=== PATIENT | female | born 1995 | race Caucasian/White ===

== ENCOUNTER 2024-05-10 10:43 | Inpatient (IN) | payer MEDICAID, SELFPAY ==
[2024-05-10] VITALS (12 sets, daily range): BP systolic 98–126; BP diastolic 67–85; PULSE 90–108; RESP 16–99; TEMP 36.9–37.4; O2SAT 97–100; BMI 25.2; BMI 27.3
--- NOTE | 2024-05-10 10:57 | XR_ITS ---
Examination: Complete OB ultrasound, less than 14 weeks, transabdominal Date and time of exam: May 10, 2024 1213 hours INDICATIONS: Vaginal bleeding beginning 2 days ago, diabetic Technique: Obstetrical ultrasound images less than 14 weeks performed via transabdominal imaging Findings: Uterus 10.4 cm, intrauterine gestational sac 0.9 cm corresponds to 5 weeks 5 day gestational age No pole No cardiac activity Uterine fundal mass 26 mm Right ovary 2.7 cm arterial flow Left ovary 3.7 cm arterial flow IMPRESSION: Empty intrauterine gestational sac corresponding to 5 weeks 5 day gestational age, no pole, no cardiac activity Recommend transvaginal pelvic sonography follow-up
--- NOTE | 2024-05-10 10:58 | PD.EDRME ---
Rapid Medical Screening Exam RME Arrival date/time: 05/10/24 10:43 28-year-old female with a history of type 1 diabetes presents to the emergency room with a chief complaint of nausea, abdominal pain, weakness and feeling like she is in DKA. Patient has a history of DKA and blood sugar read critically high this morning. Patient states she has not taken her insulin in the last 2 days because she ran out and her primary care provider's appointment is not till next week. Patient is also and states she is having vaginal bleeding. I have greeted and performed a focused initial assessment of this patient. A comprehensive ED assessment and evaluation of the patient, analysis of all test results, and completion of the medical decision making process will be conducted by additional ED providers. Chief Complaint: Urogenital-Female Time Seen by Provider: 05/10/24 10:47 Vital signs reviewed by provider: Yes
[2024-05-10 11:57] LABS: Basophils # (Auto) 0.1 Thou/mm3 (0.0-0.2); Basophils % (Auto) 1 % (0-2.5); Eosinophils % (Auto) 0 % (0-10); Hemoglobin 12.6 g/dL (12.0-16.0); Immature Granulocytes % (Auto) 0 % (0-0); Immature Granulocytes Auto 0.03 Thou/mm3 (0.00-0.00); Lymphocytes # (Auto) 1.2 Thou/mm3 (1.0-4.8); Lymphocytes % (Auto) 10 % (10-50); Mean Corpuscular HGB Conc 33.2 g/dl (31.0-37.0); Mean Corpuscular Hemoglobin 28.1 pg (25.0-35.0); Mean Corpuscular Volume 85 fL (80-100); Monocytes # (Auto) 0.5 Thou/mm3 (0.0-0.8); Monocytes % (Auto) 4 % (0-12); Neutrophils # (Auto) 9.7 Thou/mm3 (1.8-7.7); Neutrophils % (Auto) 84 % (37-80); Nucleated Red Blood Cell % 0 /100 WBC (0); Platelet Count 535 Thou/mm3 (140-440); RDW Standard Deviation 40.1 fL (36.4-46.3); Red Blood Count 4.49 Miln/mm3 (4.00-5.20); White Blood Count 11.6 Thou/mm3 (3.6-11.0)
--- NOTE | 2024-05-10 11:59 | PD.EDFMALE ---
ED Female Urogenital RME/HPI General Chief complaint: Urogenital-Female Stated complaint: , VAG. BLEEDING, I THINK IM IN DKA Time Seen by Provider: 05/10/24 10:47 Arrival date/time: 05/10/24 10:43 28 year old female with pastmedical history of DM I , DKA, C/S ,dehydration, seizure present to emergency room with c/o of , vag bleeding and abdominal pain, nausea,vomiting, weakness and may think she has DKA. Pt report taking blood glucose today and it was critically high. Pt report not taking insulin in 2 days due to not running out. unable to make an appointment with her PCP until 1 week. SEVERITY: Symptoms are described as being severe with limitations on activities of daily living CONTEXT: The patient is unable to identify any inciting events. DURATION/TIMING: The symptoms started approximately 2 days ASSOCIATED SYMPTOMS: The patient is unable to identify any other associated symptoms. MODIFYING FACTORS: The patient is unable to identify any alleviating or aggravating symptoms. PERTINENT ROS: no fevers, no chest pain, sob, no cough, no pleuritic pain, no ripping or tearing sensations, denies any lower extremity edema and no unilateral swelling, no chest pain/shortness of breath no rash no loc/syncope episode no abd/back pain no dsyuria,urgency,frequency REVIEW OF SYSTEMS: See History of Present Illness - with the exception of those mentioned in the history of present illness, all other systems reviewed and reported as negative GENERAL: In general the patient is awake, interactive, in an emergency department gurney. mild discomfort HEAD/EYES/EARS/NOSE/THROAT: normo-cephalic, atraumatic, mucus membranes are moist, anicteric, palpebral conjunctiva is pink, trachea is midline. CARDIOVASCULAR: regular rate and regular rhythm, no murmurs, heart sounds are not distant, strong pulses in all four extremities that are equal and symmetric bilateral upper and lower extremities, normal capillary refill. CHEST/PULMONARY: normal chest rise and fall, good air movement, clear to auscultation bilaterally, normal inspiratory to expiratory ratios without evidence of respiratory distress. NECK: No midline/Paraspinal tenderness, no step off ROM/Strenght intact No Kernig and bruzinski sign. No trauma ABDOMEN: soft, not tender, no masses appreciated BACK: normal range of motion without pain. NEUROLOGICAL: cranio-facial features are symmetric, moves all four extremities equally without obvious limitations or weakness. EXTREMITY: no tenderness to palpation over the long bones or large joints of the bilateral upper and lower extremities, no joint swelling, no joint erythema, no signs of trauma, no unilateral leg swelling and no peripheral edema. SKIN: warm, dry, well-perfused, no jaundice, no rash, no telangiectasias or petechia. PSYCH: calm, cooperative, no evidence of psychosis or agitation RME / HPI RME / HPI Narrative: 05/10/24 10:43 28-year-old female with a history of type 1 diabetes presents to the emergency room with a chief complaint of nausea, abdominal pain, weakness and feeling like she is in DKA. Patient has a history of DKA and blood sugar read critically high this morning. Patient states she has not taken her insulin in the last 2 days because she ran out and her primary care provider's appointment is not till next week. Patient is also and states she is having vaginal bleeding. I have greeted and performed a focused initial assessment of this patient. A comprehensive ED assessment and evaluation of the patient, analysis of all test results, and completion of the medical decision making process will be conducted by additional ED providers. Related Data Previous Rx's ?Medication ?Instructions ?Recorded aripiprazole 10 mg tablet 10 mg PO QDAY 9 days #9 tabs 12/08/23 blood sugar diagnostic (Accu-Chek #100 ea 12/08/23 SmartView Test Strips) blood-glucose meter (FreeStyle #1 ea 12/08/23 Cashiers Lite kit) insulin aspart U-100 100 unit/mL 8 unit (0.08 mL) subcut AC #15 mL 12/08/23 (3 mL) subcutaneous pen (Novolog FlexPen U-100 Insulin aspart) insulin glargine 100 unit/mL 20 unit (0.2 mL) subcut BID #10 mL 12/08/23 subcutaneous solution (Lantus U-100 Insulin) lancets 28 gauge (FreeStyle #100 ea 12/08/23 Lancets) lancets-blood glucose test #1 ea 12/08/23 strips-pen needles with gauze kit levothyroxine 88 mcg tablet 88 mcg PO QDAY 30 days #30 tabs 12/08/23 (Synthroid) pen needle, diabetic 29 gauge x #100 ea 12/08/23 1/2 (Comfort EZ Pen [place]) pen needle, diabetic 32 gauge x #100 ea 12/08/23 1/4 Allergies Allergy/AdvReac Type Severity Reaction Status Date / Time codeine Allergy Intermediate Abdominal Verified 05/10/24 10:47 Pain Course Course Course Narrative: DISPOSITION: Emergency Department nursing documentation was reviewed including triage complaint, associated symptoms, administration of medications, response to therapy and vital signs. Given the history, physical exam, and review of laboratory and imaging studies the patient is determined to be unsafe for discharge and is being moved into the hospital for further diagnostic tests, treatments, stabilization, and monitored response to therapy. I communicated the history, physical exam, pertinent laboratory and imaging studies to the inpatient physician. The inpatient physician has access to electronic copies of all emergency department laboratory testing and imaging studies as well as medications ordered and administered. Quality Measures none Orders Category Date Time Status Television Equipment Operator STAT Care 05/10/24 13:01 Active DKA Protocol QSHIFT Care 05/10/24 13:01 Active EKG (ED ONLY) *Do not use* NOW Care 05/10/24 12:02 Completed In and Out Catheter X1 Care 05/10/24 13:45 Active Insert IV NOW Care 05/10/24 10:57 Active Notify provider NEEDED Care 05/10/24 13:01 Active Consult to Gynecology Stat Cons 05/10/24 13:44 Ordered Consult to Security Program Manager Stat Cons 05/10/24 13:45 Ordered Referral Registered Dietitian Routine Cons 05/10/24 13:01 Active EKG (ED Only) Stat Exams 05/10/24 12:02 Ordered US OB <= 14 weeks fetus Stat Exams 05/10/24 10:57 Completed ABO/RH Type Stat Lab 05/10/24 11:21 Completed Beta HCG,Quantitative Stat Lab 05/10/24 11:21 Completed Beta Hydroxybutyrate Stat Lab 05/10/24 11:21 Completed CBC Stat Lab 05/10/24 11:21 Completed CMP [Comprehensive Metabolic Panel] Stat Lab 05/10/24 11:21 Completed Drug Screen,Urine Stat Lab 05/10/24 14:30 Ordered Glycohemoglobin w (eAG) Stat Lab 05/10/24 11:21 Completed Lactic Acid [Lactate (Lactic Acid)] Stat Lab 05/10/24 13:02 Completed Lipase Stat Lab 05/10/24 11:21 Completed Mag [Magnesium] Stat Lab 05/10/24 11:21 Completed Phosphorous Stat Lab 05/10/24 13:30 Completed Troponin I Stat Lab 05/10/24 11:21 Completed UA [Urinalysis] Stat Lab 05/10/24 10:56 Ordered Urine Culture Stat Lab 05/10/24 10:56 Ordered VBG [Venous Blood Gas] Stat Lab 05/10/24 13:02 Completed Metoclopramide Inj [Reglan Inj] Med 05/10/24 12:02 Discontinued 10 mg IVP X1 ONE Pre-Mixed [Pre-mixed Bag] 1 bag Med 05/10/24 13:28 Active Insulin Reg 100 Units/100 ml [Myxredlin] 100 unit IV 0.1 unit/kg/hr Sodium Chloride 0.9% 1000 ml [Ns] 1,000 ml Med 05/10/24 10:57 Discontinued IV 999 mls/hr Sodium Chloride 0.9% 1000 ml [Ns] 1,000 ml Med 05/10/24 12:00 Discontinued IV 999 mls/hr Reevaluation(s) Reevaluation #1: pt is accept treatment and plan. Additional Reevaluation(s): Vaginal Exam performed by Dr. Garcia: External Exam: No lesions observed. Vagina: No atrophy, scant bloody discharge, no lesions, and no evidence of cystocele or rectocele. Urethra: No masses, tenderness, or scarring. Speculum/Internal Exam: Cervix: Nontender, nulliparous, no discharge or signs of pulling. Bimanual Exam: No pulling, no dark dry blood, no blood clots, no cervical motion tenderness (CMT), and no masses in the bimanual or ovarian fullness. Adnexa: No adnexal masses palpated bilaterally, no tenderness. Resident present during Dr. Garcia's exam. Vital Signs Vital signs: Vital Signs Respiratory Rate 19 05/10/24 12:51 Blood Pressure 126/78 05/10/24 12:51 Pulse Oximetry (%) 97 05/10/24 12:51 Oxygen Delivery Method Room Air 05/10/24 12:51 Procedures -ED EKG Interpretation #1: Date of EK05/10/24 Rate: 103 Interpretation: Reviewed by me EKG Impression: No ischemic changes and Sinus tachycardia Urogenital - Female MDM Narrative MDM Narrative:: Given 2 bolus of IV fluids, and start insulin drip This patient presents with hyperglycemia and symptoms concerning for DKA. Differential diagnosis includes other metabolic causes of hyperglycemia such as HHS, worsened diabetes or medication noncompliance. , miscarriage, Considered possible causes of DKA to include infection (pancreatitis, UTI,) , infarction / ischemia (acute coronary syndrome, cerebral vascular accident), medication non-compliance with insulin therapy, idiopathic causes. Most likely etiology at this time is DKA. Plan to treat the hyperglycemia as below while simultaneously evaluating and treating potential underlying etiologies. Plan: POC glucose monitoring (Q1H), CMP , blood gas, UA, serum ketones, CBC, LFTs / lipase, (lactate) IVF, IV Insulin therapy, US OB, HCG serial reassessment, admission for treatment of hyperglycemia Patient data External records reviewed:: [facility] previous records Clinical information provided by:: patient Social determinants that could affect healthcare access:: none Patient has the following chronic illnesses:: DM, DKA, dehydration How is presenting disease/condition affected by chronic disease/condition?: exacerbated by Evaluation data The following diagnostics were reviewed and interpreted by me:: lab results, radiology exam(s) and EKG tracing(s) Lab and/or radiology exams considered but not ordered:: none Interpretation Summary: Beta: 5.8 CBC: 11.6, plt 535 CMP 117 na, co < 10 , + gap hc US: Uterus 10.4 cm, intrauterine gestational sac 0.9 cm corresponds to 5 weeks 5 day gestational age No pole No cardiac activity Uterine fundal mass 26 mm Right ovary 2.7 cm arterial flow Left ovary 3.7 cm arterial flow IMPRESSION: Empty intrauterine gestational sac corresponding to 5 weeks 5 day gestational age, no pole, no cardiac activity Recommend transvaginal pelvic sonography follow-up Medications / Prescriptions Medications or Prescriptions considered but not ordered:: n/a Medication administrations:: Medication Administration History Insulin Human Regular 100 unit (/ IV Miscellaneous Supplies) 100 mls @ 8.165 mls/hr IV .[id number] PRN; Protocol PRN Reason: PER PROTOCOL Stop: 06/09/24 13:00 Last Titration: 05/10/24 14:30 Dose: 0.1 unit/kg/hr, 8.165 mls/hr Documented By: KEITH Co-signed By: KIM Admin: 05/10/24 13:31 Dose: 0.1 unit/kg/hr, 8.165 mls/hr Documented By: KEITH Co-signed By: KM Discontinued Medications Sodium Chloride (Ns) 1,000 mls @ 999 mls/hr IV .Q1H1M ONE Stop: 05/10/24 11:57 Last Admin: 05/10/24 12:16 Dose: 999 mls/hr Documented By: KEITH Sodium Chloride (Ns) 1,000 mls @ 999 mls/hr IV .Q1H1M ONE Stop: 05/10/24 13:00 Last Admin: 05/10/24 12:17 Dose: 999 mls/hr Documented By: KEITH Metoclopramide HCl (Metoclopramide Inj 5 Mg/Ml Vial 2 Ml) 10 mg IVP X1 ONE; Protocol Stop: 05/10/24 12:03 Last Admin: 05/10/24 12:16 Dose: 10 mg Documented By: KEITH as stated above Consultations Consultation(s) initiated? (list below): Yes Consultation #1 (Physician, Specialty, Details): [id number] Dr. Soni will accept patient, ask to call OB for Consultation #2 (Physician, Specialty, Details): 1335 Dr. John will come in OB and consult report no intervention currently, DKA is #1 priority Consultation #3 (Physician, Specialty, Details): [phone] Soni will accept patient Diagnosis Urogenital Female Differential Diagnosis: urinary tract infection, ovarian cyst, ruptured ovarian cyst and other (ectopic, , miscarriage, DKA, dehydration, kidney injury ) Most likely diagnosis given after review of the tests above:: DKA, Admission Indicated Admission indicated?: indicated Admission Request Was there a request for admission?: Yes Admission Attestation Admission request attestation: Discussed case with [] from Hospitalist service regarding admission. Discussed patients ED course, exam findings, labs, and radiology results. The Hospitalist [agrees,declines] to accept the patient for admission. Disposition Plan Disposition Plan: Admit Discharge Plan Plan Patient Disposition: Admit Acute Care w/in Hospital Prescriptions/Referrals Prescriptions/Med Rec: No Action insulin glargine [Lantus U-100 Insulin] 100 unit/mL solution 20 unit subcut BID Qty: 10 0RF (DME) Accu-Chek SmartView Test Strip Strip See Rx Instructions .Route Qty: 100 5RF Rx Instructions: As directed levothyroxine [Synthroid] 88 MCG tablet 88 mcg PO QDAY 30 Days Qty: 30 3RF (DME) blood-glucose meter [FreeStyle Cashiers Lite] Kit See Rx Instructions .Route Qty: 1 0RF Rx Instructions: As directed (DME) pen needle, diabetic [Comfort EZ Pen [place]] 29 gauge x 1/2 needle See Rx Instructions .Route Qty: 100 0RF Rx Instructions: As directed aripiprazole 10 mg tablet 10 mg PO QDAY 9 Days Qty: 9 0RF insulin aspart U-100 [Novolog FlexPen U-100 Insulin] 100 unit/mL (3 mL) insulin pen 8 unit SUBCUT AC Qty: 15 0RF (DME) pen needle, diabetic 32 gauge x 1/4 needle See Rx Instructions .Route Qty: 100 0RF Rx Instructions: As directed (DME) lancets [FreeStyle Lancets] 28 gauge Misc Qty: 100 0RF Rx Instructions: Test BID (DME) lancet-gluc bslff-[id number] Kit See Rx Instructions .Route Qty: 1 5RF Rx Instructions: As directed Referrals: Trent Flannery MD [Primary Care Provider] - In 1 week Problem List Clinical Impression: Diabetic ketoacidosis, Patient/Caregiver Discharge Instructions Print Language: Chinese Stand Alone Forms: Kourtney Award Info., Patient Portal Info Letter
[2024-05-10 12:00] LABS: Beta Hydroxybutyrate 5.8 mmol/L (<0.6)
--- NOTE | 2024-05-10 12:02 | EKG_ITS ---
[facility] Test Date: 2024-05-10 Pat Name: MARIBEL JOHNSON Department: Room: - Gender: Female Supervisor Force Adjustment: : 1995 Requested By: Matt Villafana Order Number: [id number] Reading MD: Matt Villafana Measurements Intervals [place] Rate: 103 P: -23 ND: 144 QRS: -29 QRSD: 82 T: -13 QT: 323 QTc: 424 Interpretive Statements SINUS TACHYCARDIA BORDERLINE LEFT AXIS DEVIATION [QRS AXIS < -20] MODERATE VOLTAGE CRITERIA FOR LVH, CONSIDER NORMAL VARIANT [MEETS CRITERIA IN ONE OF: R(aVL), S(V1), R(V5), R(V5/V6)+S(V1)] ABNORMAL RHYTHM ECG WARNING: DATA QUALITY MAY AFFECT INTERPRETATION Compared to ECG 12/06/2023 08:06:34 No significant changes /store/S0/[id number]
[2024-05-10] MEDS: METOCLOPRAMIDE INJ 5 MG/ML VIAL 2 ML 10 MG IVP (12:16)
[2024-05-10] MEDS: SODIUM CHLORIDE 0.9% 1000 ML 1,000 ML 999 ML IV ×2 (12:16→12:17)
[2024-05-10 12:49] LABS: Alanine Aminotransferase 16 U/L (10-49); Albumin, Serum 4.4 gm/dL (3.5-5.0); Albumin/Globulin Ratio 1.6 (1.2-2.2); Alkaline Phosphatase 139 U/L (46-116); Anion Gap 22 (7-16); Aspartate Amino Transferase 16 U/L (0-34); BUN/Creatinine Ratio 13 Ratio (12-20); Bilirubin,Total 0.7 mg/dL (0.3-1.2); Blood Urea Nitrogen 15 mg/dL (9-23); Calcium 9.9 mg/dL (8.3-10.6); Calcium (Corrected) 9.9 mg/dL (8.5-10.1); Chloride 85 mMol/L (98-107); Creatinine (Component) 1.2 mg/dL (0.6-1.3); Globulin 2.8 gm/dL (2.3-3.5); Lipase 25 U/L (12-53); Osmolality,Calculated 274 (275-295); Total Protein 7.2 gm/dL (5.7-8.2); eGFR > 60 See Note
[2024-05-10 12:54] LABS: Carbon Dioxide < 10.0 mMol/L (20.0-31.0); Glucose 772 mg/dL (74-106); Sodium 117 mMol/L (136-145)
[2024-05-10 12:59] LABS: Magnesium 2.1 mg/dL (1.6-2.6); Troponin I < 0.002 ng/mL (0.0-0.045)
[2024-05-10 13:13] LABS: Beta HCG,Quantitative 5263 mIU/mL (<5.0)
[2024-05-10 13:14] LABS: Base Excess, Venous -17 (-3-3); Lactate (Lactic Acid) 1.9 mMol/L (0.4-2.0); O2 Saturation, Venous 92 % (96-97); PCO2, Venous 24 mmHg (36-56); PO2, Venous 74 mmHg (15-58); pH, Venous 7.19 (7.33-7.66)
[2024-05-10] MEDS: INSULIN REG 100 UNITS/100 ML 100 UNIT in PRE-MIXED 1 BAG 8.165 UNIT IV (13:31)
[2024-05-10 14:11] LABS: Glucose Estimated Average 355 mg/dL (80-131); Hemoglobin A1C > 14.0 % Hgb (4.8-6.0)
[2024-05-10 14:14] LABS: Phosphorous 5.6 mg/dL (2.4-5.1)
[2024-05-10 14:47] LABS: Collection Type, Urine Clean Catch
--- NOTE | 2024-05-10 15:10 | ESHP_ITS ---
Documentation for date of: 05/10/24 HPI History of Present Illness History of present illness: 28-year-old female G3, 1 living child, with past medical history of diabetes mellitus type 1, noncompliant with insulin, history of hypothyroidism, cocaine/methamphetamine abuse was presented to ED with chief complaints of generalized weakness, nausea, vomiting, and lower abdominal cramping. Patient stated that for the past 2 days she ran out of her insulin, and was supposed to have an appointment with her PCP today. She was not taking her insulin last 2 days. Patient stated that yesterday in the morning she started to have some chills, severe nausea, had an episode of vomiting and was feeling generalized weakness. She stated that she found out that she is 3 days ago. She stated that since she found out that she is she stopped using cocaine, So per patient last cocaine use was 3 days ago. Patient was complaining of lower abdominal pain and was complaining of bleeding. On presentation patient had vaginal bleeding. She also stated that she took ibuprofen yesterday. On presentation patient was tachycardic with heart rate of 101, labs revealed leukocytosis WBC 11.6, platelet 525, VBG revealed acidosis with pH of 7.19, pCO2 24 symptom 117, corrected with glucose would be 128, chloride of 95, bicarb less than 10, anion gap of 22, glucose was 772, A1c more than 14, calculated osmolality 274, phosphorus 5.6, ALP 139, beta hydroxybutyrate 5.8. U tox and UA was ordered, which was pending upon my evaluation ultrasound revealed empty intrauterine gestational sac corresponding to 5 weeks 5-day gestational age, no pole, no cardiac activity Patient found to be in DKA, DKA protocol initiated, CREATIVE DIRECTOR was consulted in ED, and patient was admitted to ICU for DKA management. Past medical history: Diabetes mellitus type 1, on 20 units of Lantus twice daily, with lispro sliding scale .hypothyroidism Past surgical history: None Family history: None relevant Social history: History of cocaine abuse, last time was 3 days ago Travel history: None Allergies: Codeine Review of Systems Review of Systems Narrative Review of Systems: Narrative Review of Systems: GENERAL: Denies fevers or diaphoresis. HEENT: Denies headache, Denies visual/hearing changes NEURO: Denies Any numbness, visual changes CARDIO: Denies chest pain PULM: Denies SOB MSK/EXT/SKIN: Denies joint/skeletal/muscle pain The rest of review of system is otherwise negative except what is mentioned above Exam Vital Signs Pulse Resp BP Pulse Ox O2 Del Method 101 H 17 126/78 100 Room Air 05/10/24 14:42 05/10/24 14:42 05/10/24 14:42 05/10/24 14:42 05/10/24 12:51 Results: Labs 05/10/24 11:21 05/10/24 11:21 Labs: Short CBC 05/10/24 Range/Units 11:21 WBC 11.6 H (3.6-11.0) Thou/mm3 Hgb 12.6 (12.0-16.0) g/dL Hct 38.0 (36.0-46.0) % Plt Count 535 H (140-440) Thou/mm3 BMP 05/10/24 11:21 Sodium 117 L* Potassium 5.0 Chloride 85 L Carbon Dioxide < 10.0 L* BUN 15 Creatinine 1.2 Glucose 772 H* Calcium 9.9 Cardiac Enzymes 05/10/24 Range/Units 11:21 Troponin I < 0.002 (0.0-0.045) ng/mL Liver Function 05/10/24 Range/Units 11:21 Total Bilirubin 0.7 (0.3-1.2) mg/dL AST 16 (0-34) U/L ALT 16 (10-49) U/L Alkaline Phosphatase 139 H (46-116) U/L Albumin 4.4 (3.5-5.0) gm/dL ABG Interpretation ABG results: 05/10/24 13:02 VBG pH 7.19 L VBG pCO2 24 L VBG pO2 74 H VBG Base Excess -17 L Quality Measures Quality Measures none Medications Home Medications and Allergies Allergies Allergy/AdvReac Type Severity Reaction Status Date / Time codeine Allergy Intermediate Abdominal Verified 05/10/24 10:47 Pain Visit Medications Acetaminophen (Acetaminophen 325 Mg Tablet) 650 mg PO Q6H PRN PRN Reason: Fever >101.5 Stop: 06/09/24 14:45 Dextrose (Dextrose 50%-Water Inj 50 Ml Syringe) 25 ml IV [id number] PRN PRN Reason: Blood Sugar - Low Insulin Human Regular 100 unit (/ IV Miscellaneous Supplies) 100 mls @ 8.165 mls/hr IV .[id number] PRN; Protocol PRN Reason: PER PROTOCOL Stop: 06/09/24 13:00 Last Titration: 05/10/24 14:30 Dose: 0.1 unit/kg/hr, 8.165 mls/hr Potassium Chloride (Kcl Ivpb) 10 meq in 100 mls @ 100 mls/hr IV .Q1H PRN PRN Reason: IF POTASSIUM LESS THAN 3.3 Stop: 06/09/24 14:59 Magnesium Sulfate (Magnesium Sulfate Ivpb) 2 gm in 50 mls @ 25 mls/hr IV .Q2H PRN PRN Reason: PER DKA PROTOCOL Stop: 06/09/24 14:59 Dextrose/Lactated Ringer's (D5-Lr) 1,000 mls @ 250 mls/hr IV .Q4H PRN PRN Reason: PER PROTOCOL Stop: 06/09/24 14:59 Lactated Ringer's (Lactated Ringers) 1,000 mls @ 250 mls/hr IV .Q4H PRN PRN Reason: PER PROTOCOL Stop: 05/11/24 14:59 Potassium Chloride 20 meq/ (Lactated Ringer's) 1,010 mls @ 250 mls/hr IV .Q4H3M PRN PRN Reason: K LEVEL 3.3 TO 5.3mM/L Stop: 06/09/24 14:59 Potassium Chloride 40 meq/ (Lactated Ringer's) 1,020 mls @ 250 mls/hr IV .Q4H5M PRN PRN Reason: K LEVEL < 3.3 mM/L Stop: 06/09/24 14:59 Potassium Chloride 40 meq/ (Dextrose/Lactated Ringer's) 1,020 mls @ 250 mls/hr IV .Q4H5M PRN PRN Reason: K LEVEL < 3.3mM/L Stop: 06/09/24 14:59 Potassium Cl/Dextrose/Lact Ringer's (Kcl 20 Meq/L In D5-Lr) 20 meq in 1,000 mls @ 250 mls/hr IV .Q4H PRN PRN Reason: K LEVEL 3.3 TO 5.3 mM/L Stop: 06/09/24 14:59 Potassium Chloride (Kcl Ivpb) 10 meq in 100 mls @ 50 mls/hr IV PRN PRN PRN Reason: K LEVEL 3.3 to 5.3 & BG > 200 Stop: 06/09/24 14:59 Potassium Phosphate (Pot Phos 15 Mmol In Ns 250 Ml) 15 mmol in 250 mls @ 62.5 mls/hr IV PRN PRN PRN Reason: Phosphate <= 1mg/dL Stop: 06/09/24 14:59 Sodium Phosphate 15 mmol/ (Sodium Chloride) 255 mls @ 62.5 mls/hr IV .Q4H5M PRN PRN Reason: Phosphate <= 1mg/dL and K> than 5.3 Stop: 06/09/24 14:59 Ondansetron HCl (Ondansetron Inj 2 Mg/Ml Inj 2 Ml) 4 mg IV Q6H PRN; Protocol PRN Reason: NAUSEA OR VOMITING Stop: 06/09/24 14:45 Sodium Bicarbonate (Sodium Bicarb Inj 8.4% Syr 50 Ml Syringe) 50 ml IV PRN PRN PRN Reason: For ph <= to 7.0 Stop: 06/09/24 14:59 Discontinued Medications Heparin Sodium (Porcine) (Heparin Sod Inj 5000 Unit/Ml Vial) 5,000 unit SC Q8HR TRUDI Stop: 05/24/24 21:59 Sodium Chloride (Ns) 1,000 mls @ 999 mls/hr IV .Q1H1M ONE Stop: 05/10/24 11:57 Last Infusion: 05/10/24 15:09 Dose: Infused Sodium Chloride (Ns) 1,000 mls @ 999 mls/hr IV .Q1H1M ONE Stop: 05/10/24 13:00 Last Infusion: 05/10/24 15:10 Dose: Infused Metoclopramide HCl (Metoclopramide Inj 5 Mg/Ml Vial 2 Ml) 10 mg IVP X1 ONE; Protocol Stop: 05/10/24 12:03 Last Admin: 05/10/24 12:16 Dose: 10 mg Assessment & Plan Plan 28 years old woman with past medical history of insulin-dependent diabetes was admitted for DKA management. 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 CVS Stable Respiratory Stable GI #Nausea #Episode of vomiting -Secondary due to DKA -Ondansetron as needed -Hydration Renal #LEONA most likely prerenal in the setting of dehydration #HAGMA in the setting of DKA Patient presented with anion gap of 22, pH was 7.19, pCO2 24, per winter formula expected CO2 would be 19.5-23.5, her pCO2 on VBG is 24, also patient is having a respiratory compensatory alkalosis Renal panel revealed LEONA with creatinine of 1.2, baseline 0.6, -Continue to monitor -Continue DKA protocol #Pseudohyponatremia in the setting of DKA Sodium 117, corrected with glucose of 770 NA 128 Endo #Diabetes type 1 #DKA ? IV insulin gtt. per DKA protocol ? IV fluids per DKA protocol ? Follow-up renal panel every 4 hours ? Follow-up magnesium and Phos every 4 hours #Uncontrolled diabetes mellitus type 1 Most likely secondary to medication noncompliance -Insulin drip per DKA protocol -A1c is above 14 #Hypothyroidism -Resume home levothyroxine Hematology #Leukocytosis Was likely reactive in the setting of DKA -We will follow-up with the cultures ID Stable Genitourinary Patient is She was complaining of abdominal cramping and vaginal bleeding ultrasound revealed empty intrauterine gestational sac corresponding to 5 weeks 5-day gestational age, no pole, no cardiac activity -CREATIVE DIRECTOR was informed -Will follow-up with recommendations Disposition: ICU for DKA management DVT prophylaxis: None, in the setting of vaginal bleeding GI prophylaxis: PPI Diet: N.p.o. Lines: PIV CODE STATUS:Full code Patient care was discussed with attending physician Dr. Zachariah Dietrich MD PGY-2
[2024-05-10 15:19] LABS: Bilirubin,Urine Negative (Negative); Blood,Urine 3+ (Negative); Clarity,Urine Turbid (Clear/Hazy); Color,Urine Lt-Brown (Lt Yel-Yel); Glucose, Urine 4+ (Negative); Ketones,Urine 4+ (Negative); Leukocyte Esterase,Urine Negative (Negative); Nitrite,Urine Negative (Negative); PH,Urine 5.5 (5.0-7.0); Protein,Urine 1+ (Neg - Trace); RBC,Urine 778 /hpf (0-3); Specific Gravity,Urine 1.027 (1.001-1.035); Squamous Epithelial Cell,Urine 9 /hpf (0-5); Urobilinogen,Urine Negative mg/dL (0.0-1.0); WBC,Urine 9 /hpf (0-5)
[2024-05-10 15:41] LABS: Base Excess, Venous -17 (-3-3); O2 Saturation, Venous 94 % (96-97); PCO2, Venous 23 mmHg (36-56); PO2, Venous 77 mmHg (15-58)
[2024-05-10 15:42] LABS: Lactate (Lactic Acid) 2.3 mMol/L (0.4-2.0)
--- NOTE | 2024-05-10 15:44 | ESCONSULT_ITS ---
WATER RESOURCES TECHNICAL OFFICER HPI Data of Consult Patient: new to practice Consult date: 05/10/24 Requesting Physician: Evelia Soni MD Primary Care Provider: Trent Flannery MD Consult Narrative Reason for consult: vaginal bleeding History of present illness: 28-year-old female, early in , presents to the emergency room with symptoms of diabetic ketoacidosis. Patient reports vaginal bleeding and abdominal pain accompanied by nausea, vomiting, and weakness. She is unsure of her last menstrual period but estimates she is approximately 5 to 6 weeks . The patient notes a mild amount of vaginal bleeding on presentation. She discloses that she has not taken her insulin for the past two days due to running out and being unable to see her primary care physician for at least a week. Pt also reports to cocaine use 3 days ago. Patient has a history of type one diabetes mellitus and seizures. On initial presentation, she was found to be hyponatremic with a glucose level of 772 and ketones of 5.8. Her initial blood gas showed a pH of 7.19 with a base excess of -17. Medical History - Type 1 diabetes mellitus - History of seizures - Early (approximately 5-6 weeks) - Cocaine use (last 3 days ago) cc:: cc: Evelia Soni MD Review of Systems Review of Systems Systems Reviewed: All systems reviewed, normal except as documented Meds Home Medications and Allergies Allergies Allergy/AdvReac Type Severity Reaction Status Date / Time codeine Allergy Intermediate Abdominal Verified 05/10/24 10:47 Pain Exam - WATER RESOURCES TECHNICAL OFFICER Vital Signs Pulse Resp BP Pulse Ox O2 Del Method 101 H 17 126/78 100 Room Air 05/10/24 14:42 05/10/24 14:42 05/10/24 14:42 05/10/24 14:42 05/10/24 12:51 Narrative Exam Deferred WATER RESOURCES TECHNICAL OFFICER - Results Labs 05/10/24 11:21 05/10/24 19:15 Labs: Short CBC 05/10/24 Range/Units 11:21 WBC 11.6 H (3.6-11.0) Thou/mm3 Hgb 12.6 (12.0-16.0) g/dL Hct 38.0 (36.0-46.0) % Plt Count 535 H (140-440) Thou/mm3 BMP 05/10/24 11:21 Sodium 117 L* Potassium 5.0 Chloride 85 L Carbon Dioxide < 10.0 L* BUN 15 Creatinine 1.2 Glucose 772 H* Calcium 9.9 Cardiac Enzymes 05/10/24 Range/Units 11:21 Troponin I < 0.002 (0.0-0.045) ng/mL Liver Function 05/10/24 Range/Units 11:21 Total Bilirubin 0.7 (0.3-1.2) mg/dL AST 16 (0-34) U/L ALT 16 (10-49) U/L Alkaline Phosphatase 139 H (46-116) U/L Albumin 4.4 (3.5-5.0) gm/dL Urine 05/10/24 Range/Units 14:30 Urine Color Lt-Brown A (Lt Yel-Yel) Urine Clarity Turbid A (Clear/Hazy) Urine pH 5.5 (5.0-7.0) Ur Specific [place] 1.027 (1.001-1.035) Urine Protein 1+ A (Neg - Trace) Urine Glucose (UA) 4+ A (Negative) ABG Interpretation ABG results: 05/10/24 05/10/24 13:02 15:17 VBG pH 7.19 L 7.20 L VBG pCO2 24 L 23 L VBG pO2 74 H 77 H VBG Base Excess -17 L -17 L Assessment and Plan Assessment and plan (1) of unknown anatomic location: Status: Acute Assessment and plan: Diabetic Ketoacidosis (DKA) in Early 28-year-old female with type 1 diabetes mellitus presents with DKA, likely precipitated by medication non-adherence. Patient reports not taking insulin for 2 days. Initial labs show severe hyperglycemia (glucose 772), ketonemia (ketones 5.8), and metabolic acidosis (pH 7.19, base excess -17). Patient is also hyponatremic. The patient's status (estimated 5-6 weeks) complicates management. - Admit to ICU for DKA management and electrolyte correction - Insulin therapy and fluid resuscitation (specifics to be determined by admitting team) - Close monitoring of glucose, electrolytes, and acid-base status - Gradual correction of hyponatremia Early Intrauterine of Uncertain Viability Ultrasound shows intrauterine gestational sac measuring 0.9 cm, corresponding to 5 weeks and 5 days gestation, without visible pole or cardiac activity. Serum hCG is 5263. These findings are within the sub-discriminatory zone, making it difficult to definitively determine viability. Differential diagnosis includes early viable , spontaneous miscarriage, or anembryonic (blighted ovum). - Serial hCG measurements every 48 hours during hospital stay - Repeat ultrasound based on hCG trend - No immediate obstetric intervention required - Reassess status after DKA is corrected Vaginal Bleeding in Early Patient reports mild vaginal bleeding. Given the early gestational age and uncertain viability, this could be related to a threatened miscarriage or normal implantation bleeding. - Monitor bleeding - No immediate intervention required - Reassess with serial hCG and ultrasound as part of evaluation Uterine Fundal Mass Ultrasound incidentally revealed a small uterine fundal mass measuring 26 mm. The clinical significance is unclear at this time. - Document finding for future follow-up - Reassess on repeat ultrasound
[2024-05-10 16:10] LABS: Amphetamine/Methamp Scrn,U Negative (Negative); Barbiturate Screen,Urine Negative (Negative); Benzodiazepines Screen,Urine Negative (Negative); Benzoylecgonine Screen, Ur Positive (Negative); Fentanyl Screen,Urine Negative (Negative); Opiate Screen,Urine Negative (Negative); THC Screen,Urine Negative (Negative)
[2024-05-10 16:10] LABS: Anion Gap 21 (7-16); BUN/Creatinine Ratio 14 Ratio (12-20); Blood Urea Nitrogen 17 mg/dL (9-23); Calcium 8.9 mg/dL (8.3-10.6); Calcium (Corrected) 8.9 mg/dL (8.5-10.1); Chloride 97 mMol/L (98-107); Creatinine (Component) 1.2 mg/dL (0.6-1.3); Estimated Creatinine Clearance 76.8 mL/min (>60); Magnesium 1.9 mg/dL (1.6-2.6); Osmolality,Calculated 281 (275-295); Phosphorous 4.5 mg/dL (2.4-5.1); Potassium 4.2 mMol/L (3.4-5.1); Sodium 128 mMol/L (136-145); eGFR > 60 See Note
[2024-05-10 16:23] LABS: Carbon Dioxide 10.3 mMol/L (20.0-31.0)
[2024-05-10 16:24] LABS: Glucose 513 mg/dL (74-106)
[2024-05-10 18:34] LABS: Reflex Lactate? Y
[2024-05-10] MEDS: KCL 20 mEq/L in D5-LR 20 MEQ/1,000 ML BAG 250 MEQ IV (19:12)
[2024-05-10 19:23] LABS: Base Excess, Venous -6 (-3-3); O2 Saturation, Venous 84 % (96-97); PCO2, Venous 32 mmHg (36-56); PO2, Venous 48 mmHg (15-58); pH, Venous 7.37 (7.33-7.66)
[2024-05-10 19:27] LABS: Beta Hydroxybutyrate 1.5 mmol/L (<0.6)
[2024-05-10 19:43] LABS: Albumin, Serum 4.2 gm/dL (3.5-5.0); Anion Gap 12 (7-16); BUN/Creatinine Ratio 14 Ratio (12-20); Blood Urea Nitrogen 14 mg/dL (9-23); Calcium 9.6 mg/dL (8.3-10.6); Calcium (Corrected) 9.6 mg/dL (8.5-10.1); Carbon Dioxide 20.3 mMol/L (20.0-31.0); Chloride 102 mMol/L (98-107); Estimated Creatinine Clearance 92.2 mL/min (>60); Glucose 95 mg/dL (74-106); Magnesium 1.8 mg/dL (1.6-2.6); Osmolality,Calculated 268 (275-295); Phosphorous 3.7 mg/dL (2.4-5.1); Sodium 134 mMol/L (136-145); eGFR > 60 See Note
[2024-05-10 23:09] LABS: Base Excess, Venous -3 (-3-3); O2 Saturation, Venous 76 % (96-97); PCO2, Venous 36 mmHg (36-56); PO2, Venous 41 mmHg (15-58); pH, Venous 7.38 (7.33-7.66)
[2024-05-10 23:37] LABS: Albumin, Serum 3.9 gm/dL (3.5-5.0); Anion Gap 10 (7-16); BUN/Creatinine Ratio 14 Ratio (12-20); Blood Urea Nitrogen 13 mg/dL (9-23); Calcium 9.5 mg/dL (8.3-10.6); Calcium (Corrected) 9.6 mg/dL (8.5-10.1); Carbon Dioxide 20.1 mMol/L (20.0-31.0); Chloride 106 mMol/L (98-107); Creatinine (Component) 0.9 mg/dL (0.6-1.3); Estimated Creatinine Clearance 102.4 mL/min (>60); Glucose 117 mg/dL (74-106); Magnesium 1.7 mg/dL (1.6-2.6); Osmolality,Calculated 273 (275-295); Phosphorous 3.5 mg/dL (2.4-5.1); Potassium 4.1 mMol/L (3.4-5.1); Sodium 136 mMol/L (136-145); eGFR > 60 See Note
[2024-05-10] MEDS: DiphenhydrAMINE INJ 50 MG/ML VIAL 12.5 MG IVP (23:54)
[2024-05-11] VITALS (23 sets, daily range): BP systolic 72–131; BP diastolic 52–86; PULSE 81–132; RESP 12–99; TEMP 37.2–38; O2SAT 77–100; BMI 27.3
[2024-05-11] MEDS: INSULIN GLARGINE (Lantus) 5 UNIT/0.05 ML (PER 5 UNITS) 16 UNIT SC (00:56)
[2024-05-11] MEDS: ONDANSETRON INJ 2 MG/ML INJ 2 ML 4 MG IV ×2 (05:22→07:48)
[2024-05-11 05:54] LABS: Base Excess, Venous -13 (-3-3); O2 Saturation, Venous 69 % (96-97); PCO2, Venous 24 mmHg (36-56); PO2, Venous 39 mmHg (15-58)
[2024-05-11 06:04] LABS: Beta Hydroxybutyrate 6.3 mmol/L (<0.6)
[2024-05-11 06:08] LABS: Basophils # (Auto) 0.1 Thou/mm3 (0.0-0.2); Basophils % (Auto) 1 % (0-2.5); Eosinophils % (Auto) 0 % (0-10); Hemoglobin 12.4 g/dL (12.0-16.0); Immature Granulocytes % (Auto) 0 % (0-0); Immature Granulocytes Auto 0.04 Thou/mm3 (0.00-0.00); Lymphocytes # (Auto) 1.3 Thou/mm3 (1.0-4.8); Lymphocytes % (Auto) 10 % (10-50); Mean Corpuscular HGB Conc 34.4 g/dl (31.0-37.0); Mean Corpuscular Hemoglobin 28.7 pg (25.0-35.0); Mean Corpuscular Volume 83 fL (80-100); Monocytes # (Auto) 0.7 Thou/mm3 (0.0-0.8); Monocytes % (Auto) 5 % (0-12); Neutrophils # (Auto) 10.3 Thou/mm3 (1.8-7.7); Neutrophils % (Auto) 83 % (37-80); Nucleated Red Blood Cell % 0 /100 WBC (0); Platelet Count 276 Thou/mm3 (140-440); Red Blood Count 4.32 Miln/mm3 (4.00-5.20); White Blood Count 12.4 Thou/mm3 (3.6-11.0)
[2024-05-11 06:19] LABS: Partial Thromboplastin Time 24.2 Seconds (22.0-36.0); Prothrombin Time 11.3 Seconds (9.0-12.2)
[2024-05-11 07:04] LABS: Alanine Aminotransferase 14 U/L (10-49); Albumin, Serum 4.2 gm/dL (3.5-5.0); Albumin/Globulin Ratio 1.8 (1.2-2.2); Alkaline Phosphatase 87 U/L (46-116); Anion Gap 20 (7-16); Aspartate Amino Transferase 13 U/L (0-34); BUN/Creatinine Ratio 12 Ratio (12-20); Bilirubin,Total 0.8 mg/dL (0.3-1.2); Blood Urea Nitrogen 13 mg/dL (9-23); Calcium 9.3 mg/dL (8.3-10.6); Calcium (Corrected) 9.3 mg/dL (8.5-10.1); Chloride 95 mMol/L (98-107); Creatinine (Component) 1.1 mg/dL (0.6-1.3); Estimated Creatinine Clearance 83.8 mL/min (>60); Globulin 2.4 gm/dL (2.3-3.5); Magnesium 1.7 mg/dL (1.6-2.6); Phosphorous 2.5 mg/dL (2.4-5.1); Potassium 4.6 mMol/L (3.4-5.1); Sodium 127 mMol/L (136-145); Total Protein 6.6 gm/dL (5.7-8.2); eGFR > 60 See Note
[2024-05-11 07:07] LABS: Carbon Dioxide 11.8 mMol/L (20.0-31.0)
[2024-05-11 07:12] LABS: Glucose 583 mg/dL (74-106); Osmolality,Calculated 282 (275-295)
--- NOTE | 2024-05-11 07:22 | PC.NURSE ---
On initial introduction with PT, had emesis in hand, anxious and crying. Stating she wants to kill herself. Charge made aware, MD Head aware,anesthesia technician now at bedside
[2024-05-11] MEDS: INSULIN REG 100 UNITS/100 ML 100 UNIT in PRE-MIXED 1 BAG 8.165 UNIT IV (07:41)
[2024-05-11 07:45] LABS: Lactate (Lactic Acid) 3.5 mMol/L (0.4-2.0)
[2024-05-11 07:46] LABS: Base Excess, Venous -19 (-3-3); O2 Saturation, Venous 88 % (96-97); PCO2, Venous 19 mmHg (36-56); PO2, Venous 62 mmHg (15-58); pH, Venous 7.18 (7.33-7.66)
[2024-05-11 07:57] LABS: Beta Hydroxybutyrate 5.4 mmol/L (<0.6)
[2024-05-11 08:01] LABS: Basophils # (Auto) 0.1 Thou/mm3 (0.0-0.2); Basophils % (Auto) 1 % (0-2.5); Eosinophils % (Auto) 0 % (0-10); Hematocrit 36.3 % (36.0-46.0); Hemoglobin 12.4 g/dL (12.0-16.0); Immature Granulocytes % (Auto) 1 % (0-0); Lymphocytes # (Auto) 0.5 Thou/mm3 (1.0-4.8); Lymphocytes % (Auto) 3 % (10-50); Mean Corpuscular HGB Conc 34.2 g/dl (31.0-37.0); Mean Corpuscular Hemoglobin 28.6 pg (25.0-35.0); Mean Corpuscular Volume 84 fL (80-100); Monocytes # (Auto) 0.4 Thou/mm3 (0.0-0.8); Monocytes % (Auto) 2 % (0-12); Neutrophils # (Auto) 15.7 Thou/mm3 (1.8-7.7); Neutrophils % (Auto) 94 % (37-80); Nucleated Red Blood Cell % 0 /100 WBC (0); Platelet Count 286 Thou/mm3 (140-440); RDW Standard Deviation 41.7 fL (36.4-46.3); Red Blood Count 4.34 Miln/mm3 (4.00-5.20); White Blood Count 16.8 Thou/mm3 (3.6-11.0)
[2024-05-11] MEDS: POT CHL ADDITIVE 20 MEQ in RINGERS LACTATED 1000 ML 1,000 ML 250 MEQ IV (08:06)
[2024-05-11 08:26] LABS: Alanine Aminotransferase 16 U/L (10-49); Albumin, Serum 4.2 gm/dL (3.5-5.0); Albumin/Globulin Ratio 1.6 (1.2-2.2); Alkaline Phosphatase 89 U/L (46-116); Anion Gap 20 (7-16); Aspartate Amino Transferase 17 U/L (0-34); BUN/Creatinine Ratio 11 Ratio (12-20); Bilirubin,Total 0.9 mg/dL (0.3-1.2); Blood Urea Nitrogen 14 mg/dL (9-23); Calcium 9.6 mg/dL (8.3-10.6); Calcium (Corrected) 9.6 mg/dL (8.5-10.1); Chloride 96 mMol/L (98-107); Creatinine (Component) 1.3 mg/dL (0.6-1.3); Estimated Creatinine Clearance 70.9 mL/min (>60); Globulin 2.7 gm/dL (2.3-3.5); Magnesium 1.9 mg/dL (1.6-2.6); Osmolality,Calculated 286 (275-295); Phosphorous 3.5 mg/dL (2.4-5.1); Potassium 5.9 mMol/L (3.4-5.1); Sodium 126 mMol/L (136-145); Total Protein 6.9 gm/dL (5.7-8.2); eGFR 57 See Note
[2024-05-11 08:29] LABS: Carbon Dioxide < 10.0 mMol/L (20.0-31.0); Glucose 685 mg/dL (74-106)
[2024-05-11 08:41] LABS: Glucose Estimated Average 355 mg/dL (80-131); Hemoglobin A1C > 14.0 % Hgb (4.8-6.0)
--- NOTE | 2024-05-11 09:02 | EKG_ITS ---
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
[2024-05-11 10:43] LABS: Reflex Lactate? Y
[2024-05-11 11:34] LABS: Base Excess, Venous -14 (-3-3); O2 Saturation, Venous 98 % (96-97); PCO2, Venous 22 mmHg (36-56); PO2, Venous 89 mmHg (15-58); pH, Venous 7.28 (7.33-7.66)
[2024-05-11 11:35] LABS: Lactic Acid, 3 HR 1.9 mMol/L (0.4-2.0)
--- NOTE | 2024-05-11 11:39 | ESPR_ITS ---
Documentation for date of: 05/11/24 Subjective Subjective Interval history: 28-year-old female G3, 1 living child, with past medical history of diabetes mellitus type 1, noncompliant with insulin, history of hypothyroidism, cocaine/methamphetamine abuse was presented to ED with chief complaints of generalized weakness, nausea, vomiting, and lower abdominal cramping. Patient stated that for the past 2 days she ran out of her insulin, and was supposed to have an appointment with her PCP today. She was not taking her insulin last 2 days. Patient stated that yesterday in the morning she started to have some chills, severe nausea, had an episode of vomiting and was feeling generalized weakness. She stated that she found out that she is 3 days ago. She stated that since she found out that she is she stopped using cocaine, So per patient last cocaine use was 3 days ago. Patient was complaining of lower abdominal pain and was complaining of bleeding. On presentation patient had vaginal bleeding. She also stated that she took ibuprofen yesterday. On presentation patient was tachycardic with heart rate of 101, labs revealed leukocytosis WBC 11.6, platelet 525, VBG revealed acidosis with pH of 7.19, pCO2 24 symptom 117, corrected with glucose would be 128, chloride of 95, bicarb less than 10, anion gap of 22, glucose was 772, A1c more than 14, calculated osmolality 274, phosphorus 5.6, ALP 139, beta hydroxybutyrate 5.8. 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 05/11/2024: Patient was seen and examined at bedside. Overnight IM Appears to be closed, patient was transitioned to subcutaneous insulin, however her anion gap opened up patient was placed again on DKA protocol. Home medications Suboxone was started, otherwise patient is hemodynamically stable, will continue treatment per DKA protocol. Follow-up with Dr. John Recommendation regarding Exam Vital Signs Temp Pulse Resp BP Pulse Ox O2 Del Method 100.4 F 124 H 27 H 130/75 100 Room Air 05/11/24 08:00 05/11/24 08:00 05/11/24 08:00 05/11/24 08:00 05/11/24 08:00 05/11/24 08:00 Narrative Exam GENERAL: no acute distress, AAO x3, well nourished. HEENT: Head AT/ NC. Mucous membranes moist. PERRL. NECK: Supple, no lymphadenopathy, no carotid bruits. CARDIOVASCULAR: RRR. Normal S1/S2, No m/r/g. No pitting edema of bilateral LEs. RESPIRATORY: CTAB. No wheezing, rhonchi, crackles. GASTROINTESTINAL: Abdomen soft, non tender no palpable masses. Bowel sounds present in all 4 quadrants. MUSCULOSKELETAL:? No cyanosis or edema, no visible joint swelling. NEUROLOGICAL: CN II-XII grossly intact. No focal deficits. Sensation intact, symmetric. PSYCHIATRIC: Awake and alert, not agitated, normal mood and affect. INTEGUMENTARY: No obvious rashes, no jaundice, normal turgor. Tattoo on a chest and right lower extremity Objective Labs 05/11/24 07:31 05/11/24 16:27 Labs: Laboratory Results - last 24 hr 05/10/24 05/10/24 05/10/24 11:21 13:02 13:30 WBC 11.6 H RBC 4.49 Hgb 12.6 Hct 38.0 MCV 85 MCH 28.1 MCHC 33.2 RDW Std Deviation 40.1 Plt Count 535 H Neut % (Auto) 84 H Lymph % (Auto) 10 [place] % (Auto) 4 Eos % (Auto) 0 Baso % (Auto) 1 Neut # (Auto) 9.7 H Lymph # (Auto) 1.2 [place] # (Auto) 0.5 Eos # (Auto) 0.0 Baso # (Auto) 0.1 Immature Gran # (Auto) 0.03 H Absolute Nucleated RBC 0.00 Immature Gran % 0 Nucleated RBC % 0 PT INR APTT VBG pH 7.19 L VBG pCO2 24 L VBG pO2 74 H VBG O2 Sat (Marcelo) 92 L VBG Base Excess -17 L Sodium 117 L* Potassium 5.0 Chloride 85 L Carbon Dioxide < 10.0 L* Anion Gap 22 H BUN 15 Creatinine 1.2 Estim Creat Clear Calc Not Performed. eGFR > 60 BUN/Creatinine Ratio 13 Glucose 772 H* Estimated Ave Glu mg/dL 355 H Hemoglobin A1c > 14.0 H Calculated Osmolality 274 L Lactic Acid 1.9 Calcium 9.9 Corrected Calcium 9.9 Phosphorus 5.6 H Magnesium 2.1 Total Bilirubin 0.7 AST 16 ALT 16 Alkaline Phosphatase 139 H Troponin I < 0.002 Total Protein 7.2 Albumin 4.4 Globulin 2.8 Albumin/Globulin Ratio 1.6 Lipase 25 Beta-Hydroxybutyrate/Acetoacetate 5.8 H Beta HCG, Quant 5263 Ur Collection Type Urine Color Urine Clarity Urine pH Ur Specific [place] Urine Protein Urine Glucose (UA) Urine Ketones Urine Blood Urine Nitrite Urine Bilirubin Urine Urobilinogen (Auto) Ur Leukocyte Esterase Urine RBC Urine WBC Ur Squamous Epith Cells Urine Bacteria Urine Opiates Screen Urine Fentanyl Screen Ur Barbiturates Screen U Amphetamin/Meth Scrn U Benzodiazepines Scrn U Cocaine Metab Screen U Marijuana (THC) Screen Blood Type O Positive Blood Bank Wristband ID Yes 05/10/24 05/10/24 05/10/24 14:30 15:17 19:15 WBC RBC Hgb Hct MCV MCH MCHC RDW Std Deviation Plt Count Neut % (Auto) Lymph % (Auto) [place] % (Auto) Eos % (Auto) Baso % (Auto) Neut # (Auto) Lymph # (Auto) [place] # (Auto) Eos # (Auto) Baso # (Auto) Immature Gran # (Auto) Absolute Nucleated RBC Immature Gran % Nucleated RBC % PT INR APTT VBG pH 7.20 L 7.37 VBG pCO2 23 L 32 L VBG pO2 77 H 48 D VBG O2 Sat (Marcelo) 94 L 84 L VBG Base Excess -17 L -6 L Sodium 128 L D 134 L Potassium 4.2 D 4.0 Chloride 97 L 102 Carbon Dioxide 10.3 L* 20.3 Anion Gap 21 H 12 BUN 17 14 Creatinine 1.2 1.0 Estim Creat Clear Calc 76.8 92.2 eGFR > 60 > 60 BUN/Creatinine Ratio 14 14 Glucose 513 H* D [address] Glu mg/dL Hemoglobin A1c Calculated Osmolality 281 268 L Lactic Acid 2.3 H 2.0 Calcium 8.9 9.6 Corrected Calcium 8.9 9.6 Phosphorus 4.5 3.7 Magnesium 1.9 1.8 Total Bilirubin AST ALT Alkaline Phosphatase Troponin I Total Protein Albumin 4.0 4.2 Globulin Albumin/Globulin Ratio Lipase Beta-Hydroxybutyrate/Acetoacetate 1.5 H Beta HCG, Quant Ur Collection Type Clean Catch Urine Color Lt-Brown A Urine Clarity Turbid A Urine pH 5.5 Ur Specific [place] 1.027 Urine Protein 1+ A Urine Glucose (UA) 4+ A Urine Ketones 4+ A Urine Blood 3+ A Urine Nitrite Negative Urine Bilirubin Negative Urine Urobilinogen (Auto) Negative Ur Leukocyte Esterase Negative Urine RBC 778 H Urine WBC 9 H Ur Squamous Epith Cells 9 H Urine Bacteria None Urine Opiates Screen Negative Urine Fentanyl Screen Negative Ur Barbiturates Screen Negative U Amphetamin/Meth Scrn Negative U Benzodiazepines Scrn Negative U Cocaine Metab Screen Positive A U Marijuana (THC) Screen Negative Blood Type Blood Bank Wristband ID 05/10/24 05/11/24 05/11/24 22:56 05:12 07:31 WBC 12.4 H 16.8 H RBC 4.32 4.34 Hgb 12.4 12.4 Hct 36.0 36.3 MCV 83 84 MCH 28.7 28.6 MCHC 34.4 34.2 RDW Std Deviation 41.0 41.7 Plt Count 276 D 286 Neut % (Auto) 83 H 94 H Lymph % (Auto) 10 3 L [place] % (Auto) 5 2 Eos % (Auto) 0 0 Baso % (Auto) 1 1 Neut # (Auto) 10.3 H 15.7 H Lymph # (Auto) 1.3 0.5 L [place] # (Auto) 0.7 0.4 Eos # (Auto) 0.0 0.0 Baso # (Auto) 0.1 0.1 Immature Gran # (Auto) 0.04 H 0.10 H Absolute Nucleated RBC 0.00 0.00 Immature Gran % 0 1 H Nucleated RBC % 0 0 PT 11.3 INR 1.0 APTT 24.2 VBG pH 7.38 7.30 L 7.18 L VBG pCO2 36 24 L D 19 L VBG pO2 41 39 62 H D VBG O2 Sat (Marcelo) 76 L 69 L 88 L VBG Base Excess -3 -13 L -19 L Sodium 136 127 L 126 L Potassium 4.1 4.6 D 5.9 H D Chloride 106 95 L 96 L Carbon Dioxide 20.1 11.8 L* < 10.0 L* Anion Gap 10 20 H 20 H BUN 13 13 14 Creatinine 0.9 1.1 1.3 Estim Creat Clear Calc 102.4 83.8 70.9 eGFR > 60 > 60 57 L BUN/Creatinine Ratio 14 12 11 L Glucose 117 H 583 H* D 685 H* D Estimated Ave Glu mg/dL 355 H Hemoglobin A1c > 14.0 H Calculated Osmolality 273 L 282 286 Lactic Acid 1.0 3.5 H Calcium 9.5 9.3 9.6 Corrected Calcium 9.6 9.3 9.6 Phosphorus 3.5 2.5 3.5 Magnesium 1.7 1.7 1.9 Total Bilirubin 0.8 0.9 AST 13 17 ALT 14 16 Alkaline Phosphatase 87 D 89 Troponin I Total Protein 6.6 6.9 Albumin 3.9 4.2 4.2 Globulin 2.4 2.7 Albumin/Globulin Ratio 1.8 1.6 Lipase Beta-Hydroxybutyrate/Acetoacetate 6.3 H 5.4 H Beta HCG, Quant Ur Collection Type Urine Color Urine Clarity Urine pH Ur Specific [place] Urine Protein Urine Glucose (UA) Urine Ketones Urine Blood Urine Nitrite Urine Bilirubin Urine Urobilinogen (Auto) Ur Leukocyte Esterase Urine RBC Urine WBC Ur Squamous Epith Cells Urine Bacteria Urine Opiates Screen Urine Fentanyl Screen Ur Barbiturates Screen U Amphetamin/Meth Scrn U Benzodiazepines Scrn U Cocaine Metab Screen U Marijuana (THC) Screen Blood Type Blood Bank Wristband ID 05/11/24 11:06 WBC RBC Hgb Hct MCV MCH MCHC RDW Std Deviation Plt Count Neut % (Auto) Lymph % (Auto) [place] % (Auto) Eos % (Auto) Baso % (Auto) Neut # (Auto) Lymph # (Auto) [place] # (Auto) Eos # (Auto) Baso # (Auto) Immature Gran # (Auto) Absolute Nucleated RBC Immature Gran % Nucleated RBC % PT INR APTT VBG pH 7.28 L VBG pCO2 22 L VBG pO2 89 H D VBG O2 Sat (Marcelo) 98 H VBG Base Excess -14 L Sodium Potassium Chloride Carbon Dioxide Anion Gap BUN Creatinine Estim Creat Clear Calc eGFR BUN/Creatinine Ratio Glucose Estimated Ave Glu mg/dL Hemoglobin A1c Calculated Osmolality Lactic Acid 1.9 Calcium Corrected Calcium Phosphorus Magnesium Total Bilirubin AST ALT Alkaline Phosphatase Troponin I Total Protein Albumin Globulin Albumin/Globulin Ratio Lipase Beta-Hydroxybutyrate/Acetoacetate Beta HCG, Quant Ur Collection Type Urine Color Urine Clarity Urine pH Ur Specific [place] Urine Protein Urine Glucose (UA) Urine Ketones Urine Blood Urine Nitrite Urine Bilirubin Urine Urobilinogen (Auto) Ur Leukocyte Esterase Urine RBC Urine WBC Ur Squamous Epith Cells Urine Bacteria Urine Opiates Screen Urine Fentanyl Screen Ur Barbiturates Screen U Amphetamin/Meth Scrn U Benzodiazepines Scrn U Cocaine Metab Screen U Marijuana (THC) Screen Blood Type Blood Bank Wristband ID ABG Interpretation ABG results: 05/10/24 05/10/24 05/10/24 13:02 15:17 19:15 VBG pH 7.19 L 7.20 L 7.37 VBG pCO2 24 L 23 L 32 L VBG pO2 74 H 77 H 48 D VBG Base Excess -17 L -17 L -6 L 05/10/24 05/11/24 05/11/24 22:56 05:12 07:31 VBG pH 7.38 7.30 L 7.18 L VBG pCO2 36 24 L D 19 L VBG pO2 41 39 62 H D VBG Base Excess -3 -13 L -19 L 05/11/24 11:06 VBG pH 7.28 L VBG pCO2 22 L VBG pO2 89 H D VBG Base Excess -14 L Quality Measures Quality Measures none Assessment & Plan Assessment Current Active Medications: Generic Name Dose Route Start Last Admin Trade Name Freq PRN Reason Stop Dose Admin Acetaminophen 650 mg 05/10/24 14:46 Acetaminophen 325 Mg Tablet PO 06/09/24 14:45 Q6H PRN Fever >101.5 Dextrose 25 ml 05/11/24 00:07 Dextrose 50%-Water Inj 50 Ml Syringe IV 06/10/24 00:06 Q15MIN PRN BG 50-70 responsive npo pt Dextrose 50 ml 05/11/24 00:07 Dextrose 50%-Water Inj 50 Ml Syringe IV 06/10/24 00:06 Q15MIN PRN BG <50 OR BG <70 & pt unresponsive Dextrose 25 ml 05/11/24 07:18 Dextrose 50%-Water Inj 50 Ml Syringe IV [id number] PRN Blood Sugar - Low Glucagon 1 mg 05/11/24 00:07 Glucagon Inj 1 Mg Vial IM Q15MIN PRN BG <70, and no IV access Potassium Chloride 10 meq in 100 mls @ 100 mls/hr 05/11/24 07:18 Kcl Ivpb IV 06/10/24 07:17 .Q1H PRN IF POTASSIUM LESS THAN 3.3 Magnesium Sulfate 2 gm in 50 mls @ 25 mls/hr 05/11/24 07:18 Magnesium Sulfate Ivpb IV 06/10/24 07:17 .Q2H PRN PER DKA PROTOCOL Insulin Human Regular 100 unit 100 mls @ 8.165 mls/hr 05/11/24 07:18 05/11/24 10:00 / IV Miscellaneous Supplies IV 06/10/24 07:17 0.1 unit/kg/hr .[id number] PRN 8.165 mls/hr PER PROTOCOL Titration Protocol 0.1 UNIT/KG/HR Dextrose/Lactated Ringer's 1,000 mls @ 250 mls/hr 05/11/24 07:18 D5-Lr IV 06/10/24 07:17 .Q4H PRN PER PROTOCOL Lactated Ringer's 1,000 mls @ 250 mls/hr 05/11/24 07:18 Lactated Ringers IV 05/12/24 07:17 .Q4H PRN PER PROTOCOL Potassium Chloride 20 meq/ 1,010 mls @ 250 mls/hr 05/11/24 07:18 05/11/24 08:06 Lactated Ringer's IV 06/10/24 07:17 250 mls/hr .Q4H3M PRN Administration K LEVEL 3.3 TO 5.3mM/L Potassium Chloride 40 meq/ 1,020 mls @ 250 mls/hr 05/11/24 07:18 Lactated Ringer's IV 06/10/24 07:17 .Q4H5M PRN K LEVEL < 3.3 mM/L Potassium Chloride 40 meq/ 1,020 mls @ 250 mls/hr 05/11/24 07:18 Dextrose/Lactated Ringer's IV 06/10/24 07:17 .Q4H5M PRN K LEVEL < 3.3mM/L Potassium Cl/Dextrose/Lact Ringer's 20 meq in 1,000 mls @ 250 mls/hr 05/11/24 07:18 Kcl 20 Meq/L In D5-Lr IV 06/10/24 07:17 .Q4H PRN K LEVEL 3.3 TO 5.3 mM/L Potassium Chloride 10 meq in 100 mls @ 50 mls/hr 05/11/24 07:18 Kcl Ivpb IV 06/10/24 07:17 PRN PRN K LEVEL 3.3 to 5.3 & BG > 200 Potassium Phosphate 15 mmol in 250 mls @ 62.5 mls/hr 05/11/24 07:18 Pot Phos 15 Mmol In Ns 250 Ml IV 06/10/24 07:17 PRN PRN Phosphate <= 1mg/dL Sodium Phosphate 15 mmol/ 255 mls @ 62.5 mls/hr 05/11/24 07:18 Sodium Chloride IV 06/10/24 07:17 .Q4H5M PRN Phosphate <= 1mg/dL and K> than 5.3 Insulin Glargine 16 unit 05/11/24 21:00 Insulin Glargine (Lantus) 5 Unit/0.05 Ml (Per 5 Units) SC 06/10/24 08:59 QDAY@2100 [facility] Insulin Human Lispro 5 unit 05/11/24 07:30 Insulin Lispro (Admelog) 1 Unit/0.01 Ml Unit SC 06/10/24 07:29 AC [facility] Insulin Human Lispro 0 unit 05/11/24 12:00 Insulin Lispro (Admelog) 1 Unit/0.01 Ml Unit NC 06/10/24 11:59 Q6HR [facility] Protocol Ondansetron HCl 4 mg 05/10/24 14:46 05/11/24 05:22 Ondansetron Inj 2 Mg/Ml Inj 2 Ml IV 06/09/24 14:45 4 mg Q6H PRN Administration NAUSEA OR VOMITING Protocol Sodium Bicarbonate 50 ml 05/11/24 07:18 Sodium Bicarb Inj 8.4% Syr 50 Ml Syringe IV 06/10/24 07:17 PRN PRN For ph <= to 7.0 Plan 28 years old woman with past medical history of insulin-dependent diabetes was admitted for DKA management. 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 IV insulin gtt. per DKA protocol ? IV fluids per DKA protocol ? Follow-up renal panel every 4 hours ? Follow-up magnesium and Phos every 4 hours #Uncontrolled diabetes mellitus type 1 Most likely secondary to medication noncompliance -Insulin drip per DKA protocol -A1c is above 14 #Hypothyroidism -Resume home levothyroxine Hematology #Leukocytosis Was likely reactive in the setting of DKA -We will follow-up with the cultures ID Stable Reproduction Patient is She was complaining of abdominal cramping and vaginal bleeding ultrasound revealed empty intrauterine gestational sac corresponding to 5 weeks 5-day gestational age, no pole, no cardiac activity Dr. Perkins evaluated the patient, uncertain viability, patient may be having a threatened miscarriage versus normal implantation. He ordered 48 hours with hCG -[employer] OPERATIONS MANAGER was informed -Will follow-up with recommendations Disposition: ICU for DKA management DVT prophylaxis: None, in the setting of vaginal bleeding GI prophylaxis: PPI Diet: N.p.o. Lines: PIV CODE STATUS:Full code Patient care was discussed with attending physician Dr. Zachariah Dietrich MD PGY-2
[2024-05-11 12:00] LABS: Beta Hydroxybutyrate 2.4 mmol/L (<0.6)
[2024-05-11] MEDS: KCL 20 mEq/L in D5-LR 20 MEQ/1,000 ML BAG 250 MEQ IV ×2 (12:04→16:09)
[2024-05-11 12:09] LABS: Albumin, Serum 4.3 gm/dL (3.5-5.0); Anion Gap 18 (7-16); BUN/Creatinine Ratio 13 Ratio (12-20); Blood Urea Nitrogen 15 mg/dL (9-23); Calcium 9.4 mg/dL (8.3-10.6); Calcium (Corrected) 9.4 mg/dL (8.5-10.1); Chloride 104 mMol/L (98-107); Creatinine (Component) 1.2 mg/dL (0.6-1.3); Estimated Creatinine Clearance 76.8 mL/min (>60); Glucose 232 mg/dL (74-106); Magnesium 1.8 mg/dL (1.6-2.6); Osmolality,Calculated 276 (275-295); Phosphorous 2.8 mg/dL (2.4-5.1); Sodium 134 mMol/L (136-145); eGFR > 60 See Note
[2024-05-11 12:13] LABS: Carbon Dioxide 12.4 mMol/L (20.0-31.0)
--- NOTE | 2024-05-11 13:00 | PC.SS ---
PLANT EQUIPMENT ENGINEER informed by bedside nurse that patient stated desire to harm self.? PLANT EQUIPMENT ENGINEER met with patient at bedside to address statement.? Patient informed PLANT EQUIPMENT ENGINEER that currently she possesses no plan or intent of SI/HI.? Patient stated that she was upset when she made the statement.? Patient denies possessing a history of self-harm behaviors.? Patient denies history of psychiatric hospitalizations.? Patient reports possessing history of depression and anxiety.? Patient stated possessing prescription to address mood disorder.? Patient informed PLANT EQUIPMENT ENGINEER that she has run out of psychotropic medications.? Patient utilizes [facility].? Patient could not recall prescribing physician for psychotropic medication.? Patient is not participating with therapy.? Patient receptive to accessing counseling upon discharge.? PLANT EQUIPMENT ENGINEER discussed with patient that [facility] offers counseling services.? PLANT EQUIPMENT ENGINEER informed patient that upon medical clearance ASW would meet with the patient to conduct mental health assessment.? 1:1 sitter to remain present until patient has been cleared by ASW.? PLANT EQUIPMENT ENGINEER updated bedside nurse.? PLANT EQUIPMENT ENGINEER will follow up with ASW.
--- NOTE | 2024-05-11 15:14 | PD.INTPROG ---
Documentation for date of: 05/11/24 Subjective Subjective Interval history: This is a 28-year-old female well-known to the service was admitted for DKA. She presented yesterday for nausea vomiting and abdominal pain. She was found to be in DKA and admitted. Apparently she also recently found out that she was . In the ER she was complaining of vaginal bleeding as well. An OB consult was requested. She was given IV fluids and started on insulin drip. She was admitted to the ICU. Of note she also complains of withdrawal failure Critical Care Note Critical care time (min.): 43 Exam Vital Signs Temp Pulse Resp BP Pulse Ox O2 Del Method 100.4 F 110 H 14 94/56 L 95 Room Air 05/11/24 08:00 05/11/24 11:00 05/11/24 11:00 05/11/24 11:00 05/11/24 11:00 05/11/24 11:00 Narrative Exam General-anxious, agitated, normal body habitus, skin is clammy HEENT-normocephalic, atraumatic, sclera icteric, mucosa is hydrated, adequate dentition, EOMI Chest-lungs clear to auscultation bilaterally, heart regular rhythmic, no bruits or murmurs auscultated times exam, no tenderness on palpation of the chest wall Abdomen-soft, nontender, sounds present, no rebound or guarding Extremities-pulses palpable, no clubbing or cyanosis, no mottling, moves all 4 Physical Exam Completion Physical Exam Complete?: Yes 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 05/11/24 07:31 05/11/24 11:06 Labs: Laboratory Results - last 24 hr 05/10/24 05/10/24 05/10/24 14:30 15:17 19:15 WBC RBC Hgb Hct MCV MCH MCHC RDW Std Deviation Plt Count Neut % (Auto) Lymph % (Auto) Saline % (Auto) Eos % (Auto) Baso % (Auto) Neut # (Auto) Lymph # (Auto) Saline # (Auto) Eos # (Auto) Baso # (Auto) Immature Gran # (Auto) Absolute Nucleated RBC Immature Gran % Nucleated RBC % PT INR APTT VBG pH 7.20 L 7.37 VBG pCO2 23 L 32 L VBG pO2 77 H 48 D VBG O2 Sat (Marcelo) 94 L 84 L VBG Base Excess -17 L -6 L Sodium 128 L D 134 L Potassium 4.2 D 4.0 Chloride 97 L 102 Carbon Dioxide 10.3 L* 20.3 Anion Gap 21 H 12 BUN 17 14 Creatinine 1.2 1.0 Estim Creat Clear Calc 76.8 92.2 eGFR > 60 > 60 BUN/Creatinine Ratio 14 14 Glucose 513 H* D [address] Glu mg/dL Hemoglobin A1c Calculated Osmolality 281 268 L Lactic Acid 2.3 H 2.0 Calcium 8.9 9.6 Corrected Calcium 8.9 9.6 Phosphorus 4.5 3.7 Magnesium 1.9 1.8 Total Bilirubin AST ALT Alkaline Phosphatase Total Protein Albumin 4.0 4.2 Globulin Albumin/Globulin Ratio Beta-Hydroxybutyrate/Acetoacetate 1.5 H Ur Collection Type Clean Catch Urine Color Lt-Brown A Urine Clarity Turbid A Urine pH 5.5 Ur Specific [place] 1.027 Urine Protein 1+ A Urine Glucose (UA) 4+ A Urine Ketones 4+ A Urine Blood 3+ A Urine Nitrite Negative Urine Bilirubin Negative Urine Urobilinogen (Auto) Negative Ur Leukocyte Esterase Negative Urine RBC 778 H Urine WBC 9 H Ur Squamous Epith Cells 9 H Urine Bacteria None Urine Opiates Screen Negative Urine Fentanyl Screen Negative Ur Barbiturates Screen Negative U Amphetamin/Meth Scrn Negative U Benzodiazepines Scrn Negative U Cocaine Metab Screen Positive A U Marijuana (THC) Screen Negative 05/10/24 05/11/24 05/11/24 22:56 05:12 07:31 WBC 12.4 H 16.8 H RBC 4.32 4.34 Hgb 12.4 12.4 Hct 36.0 36.3 MCV 83 84 MCH 28.7 28.6 MCHC 34.4 34.2 RDW Std Deviation 41.0 41.7 Plt Count 276 D 286 Neut % (Auto) 83 H 94 H Lymph % (Auto) 10 3 L Saline % (Auto) 5 2 Eos % (Auto) 0 0 Baso % (Auto) 1 1 Neut # (Auto) 10.3 H 15.7 H Lymph # (Auto) 1.3 0.5 L Saline # (Auto) 0.7 0.4 Eos # (Auto) 0.0 0.0 Baso # (Auto) 0.1 0.1 Immature Gran # (Auto) 0.04 H 0.10 H Absolute Nucleated RBC 0.00 0.00 Immature Gran % 0 1 H Nucleated RBC % 0 0 PT 11.3 INR 1.0 APTT 24.2 VBG pH 7.38 7.30 L 7.18 L VBG pCO2 36 24 L D 19 L VBG pO2 41 39 62 H D VBG O2 Sat (Marcelo) 76 L 69 L 88 L VBG Base Excess -3 -13 L -19 L Sodium 136 127 L 126 L Potassium 4.1 4.6 D 5.9 H D Chloride 106 95 L 96 L Carbon Dioxide 20.1 11.8 L* < 10.0 L* Anion Gap 10 20 H 20 H BUN 13 13 14 Creatinine 0.9 1.1 1.3 Estim Creat Clear Calc 102.4 83.8 70.9 eGFR > 60 > 60 57 L BUN/Creatinine Ratio 14 12 11 L Glucose 117 H 583 H* D 685 H* D Estimated Ave Glu mg/dL 355 H Hemoglobin A1c > 14.0 H Calculated Osmolality 273 L 282 286 Lactic Acid 1.0 3.5 H Calcium 9.5 9.3 9.6 Corrected Calcium 9.6 9.3 9.6 Phosphorus 3.5 2.5 3.5 Magnesium 1.7 1.7 1.9 Total Bilirubin 0.8 0.9 AST 13 17 ALT 14 16 Alkaline Phosphatase 87 D 89 Total Protein 6.6 6.9 Albumin 3.9 4.2 4.2 Globulin 2.4 2.7 Albumin/Globulin Ratio 1.8 1.6 Beta-Hydroxybutyrate/Acetoacetate 6.3 H 5.4 H Ur Collection Type Urine Color Urine Clarity Urine pH Ur Specific [place] Urine Protein Urine Glucose (UA) Urine Ketones Urine Blood Urine Nitrite Urine Bilirubin Urine Urobilinogen (Auto) Ur Leukocyte Esterase Urine RBC Urine WBC Ur Squamous Epith Cells Urine Bacteria Urine Opiates Screen Urine Fentanyl Screen Ur Barbiturates Screen U Amphetamin/Meth Scrn U Benzodiazepines Scrn U Cocaine Metab Screen U Marijuana (THC) Screen 05/11/24 11:06 WBC RBC Hgb Hct MCV MCH MCHC RDW Std Deviation Plt Count Neut % (Auto) Lymph % (Auto) Saline % (Auto) Eos % (Auto) Baso % (Auto) Neut # (Auto) Lymph # (Auto) Saline # (Auto) Eos # (Auto) Baso # (Auto) Immature Gran # (Auto) Absolute Nucleated RBC Immature Gran % Nucleated RBC % PT INR APTT VBG pH 7.28 L VBG pCO2 22 L VBG pO2 89 H D VBG O2 Sat (Marcelo) 98 H VBG Base Excess -14 L Sodium 134 L Potassium 4.0 D Chloride 104 Carbon Dioxide 12.4 L* Anion Gap 18 H BUN 15 Creatinine 1.2 Estim Creat Clear Calc 76.8 eGFR > 60 BUN/Creatinine Ratio 13 Glucose [address] Glu mg/dL Hemoglobin A1c Calculated Osmolality 276 Lactic Acid 1.9 Calcium 9.4 Corrected Calcium 9.4 Phosphorus 2.8 Magnesium 1.8 Total Bilirubin AST ALT Alkaline Phosphatase Total Protein Albumin 4.3 Globulin Albumin/Globulin Ratio Beta-Hydroxybutyrate/Acetoacetate 2.4 H Ur Collection Type Urine Color Urine Clarity Urine pH Ur Specific [place] Urine Protein Urine Glucose (UA) Urine Ketones Urine Blood Urine Nitrite Urine Bilirubin Urine Urobilinogen (Auto) Ur Leukocyte Esterase Urine RBC Urine WBC Ur Squamous Epith Cells Urine Bacteria Urine Opiates Screen Urine Fentanyl Screen Ur Barbiturates Screen U Amphetamin/Meth Scrn U Benzodiazepines Scrn U Cocaine Metab Screen U Marijuana (THC) Screen Assessment & Plan Problem List (1) of unknown anatomic location: Status: Acute Additional Plan Additional Plan: In summary this is a 28-year-old female admitted to the ICU 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 States that she is trying get clean and has been on Suboxone in the past. She states that she is going through withdrawal right now needs assistance with Suboxone. It is unclear that Suboxone is helpful for cocaine. Her U tox is negative for opioid or fentanyl CV Stable Resp Stable Renal Pseudohyponatremia-pseudohyponatremia secondary to glucose GI Nausea-as needed Zofran Endo DKA-patient has multiple admissions for DKA. She has been placed on DKA protocol with insulin drip and IV fluids. Labs to be taken every 4 hours. Overnight it appeared that her gap had closed and she was transitioned to subcutaneous Lantus however this morning her gap opened up once more. Her beta hydroxy was found to be elevated. She was started on the DKA protocol once more with insulin drip. Will check a beta hydroxy and ensure that is within normal limits prior to changing her to subcutaneous insulin once more. Hypothyroid-continue levothyroxine Elevated hCG-patient's pelvic ultrasound shows a sac with no pole or cardiac activity. OB consult appreciated. Patient does have some vaginal bleeding. She will need to follow-up with OB as an outpatient. Heme Leukocytosis-likely reactive in nature ID Stable Case discussed with ICU team Labs, imaging and records reviewed Approximately 43 critical care was required for evaluation, exam, review, intervention, discussion and formulation of plan of care for this critically ill patient with diabetic ketoacidosis high risk for further and ongoing decompensation. Provider Notation Provider Notation: Although this document has been carefully reviewed, there may still be some phonetic and other typographical errors. These errors are purely grammatical due to imperfections in the software program and should not be construed in any way to compromise the substance of the patient's medical care during this visit. Thank you for the opportunity and privilege in assisting you with this patient's care and management.
[2024-05-11 16:40] LABS: Base Excess, Venous -6 (-3-3); O2 Saturation, Venous 82 % (96-97); PCO2, Venous 25 mmHg (36-56); PO2, Venous 39 mmHg (15-58); pH, Venous 7.43 (7.33-7.66)
--- NOTE | 2024-05-11 16:48 | PC.SS ---
CLEANING TECHNICIAN conducted bedside contact with the patient conduct initial assessment and to discuss discharge planning.? Patient confirmed demographic information.? Patient resides at home with family.? Patient does not utilize any form of DME to assist with ambulation.? Patient does not utilize home oxygen.? Patient describes the ability to complete ADL?s independently.? Patient is currently unemployed.? Patient declined to identify surrogate medical decision maker.? Patient?s PCP is [facility]. Flannery [facility].? Patient does not participate with dialysis.? Patient does not possess any specialty providers.? Patient possesses history of diabetes, insulin dependent.? Patient reports access to functioning glucometer, test strips and lancets.? Patient utilizes [facility] for medication services.? Patient?s toxicology screen positive for cocaine use.? Patient confirmed use.? Patient acknowledged risks with continued substance abuse.? Community resources provided to the patient to address concern.? Plan is for the patient to return home at the time of discharge.? Partner will provide transportation on behalf of the patient. ?No discharge needs identified by the patient.? No further intervention required at this time, social worker health services will be available to address any further concerns.? Next of Kin: Declined to identify D/C Plan: Home
--- NOTE | 2024-05-11 16:54 | PC.SS ---
PROFESSOR OF BIOSTATISTICS conducted bedside contact with the patient conduct initial assessment and to discuss discharge planning.? Patient confirmed demographic information.? Patient resides at home with family.? Patient does not utilize any form of DME to assist with ambulation.? Patient does not utilize home oxygen.? Patient describes the ability to complete ADL?s independently.? Patient is currently unemployed.? Patient declined to identify surrogate medical decision maker.? Patient?s PCP is Dr. Flannery [facility].? Patient does not participate with dialysis.? Patient does not possess any specialty providers.? Patient possesses history of diabetes, insulin dependent.? Patient reports access to functioning glucometer, test strips and lancets.? Patient utilizes [facility] for medication services.? Patient?s toxicology screen positive for cocaine use.? Patient confirmed use.? Patient acknowledged risks with continued substance abuse.? Community resources provided to the patient to address concern.? Plan is for the patient to return home at the time of discharge.? Patient confirmed ability to access transportation at the time of discharge.? No discharge needs identified by the patient.? No further intervention required at this time, social media marketer will be available to address any further concerns.? Next of Kin: Declined to identify D/C Plan: Home
[2024-05-11 17:05] LABS: Albumin, Serum 3.8 gm/dL (3.5-5.0); Anion Gap 11 (7-16); BUN/Creatinine Ratio 10 Ratio (12-20); Blood Urea Nitrogen 10 mg/dL (9-23); Calcium 8.8 mg/dL (8.3-10.6); Chloride 105 mMol/L (98-107); Estimated Creatinine Clearance 92.2 mL/min (>60); Glucose 128 mg/dL (74-106); Magnesium 1.7 mg/dL (1.6-2.6); Osmolality,Calculated 269 (275-295); Phosphorous 2.4 mg/dL (2.4-5.1); Potassium 4.3 mMol/L (3.4-5.1); Sodium 134 mMol/L (136-145); eGFR > 60 See Note
[2024-05-11] MEDS: LORazepam 2 MG/ML VIAL 1 MG IVP (17:19)
--- NOTE | 2024-05-11 18:28 | PD.RESEVENT ---
Documentation for date of: 05/11/24 Event Note Event Note: The patient has decided to leave against medical advice. She have a normal mental status and adequate capacity to make medical decisions. The patient refuses hospital stay and wants to be discharged. The risks have been explained to the patient. The benefits of stay have also been explained, including the availability and proximity of nurses, physicians, monitoring, diagnostic testing, and treatment. The patient was able to understand and state the risks and benefits of hospital stay and she had the opportunity to ask questions about their medical condition. The patient was treated to the extent that they would allow and knows that they may return for care at any time. She wanted to go to her suboxone clinic, she was explained that she is still in DKA and is and the risk associated with untreated DKA, in morning she told the charge the nurse taking care of her that she was suicidal, police notified about it. My attending Physician was notified . Lila Head PGY-3 ,
--- NOTE | 2024-05-11 18:31 | PC.NURSE ---
1800 went in to check blood sugar, stated for me to get her paperwork for her to leave. I made her aware the doctors were not going to discharge her, she is not ready to be DC'd. Pt stated she she was going to leave against medical advise. I made Dr. Head aware, we both went into the room to attempt to have patient stay. PT refused, MD explained consequences of her leaving, up to and including . PT stated she would be OK. IVs and johnston removed. I made pt aware she can come back anytime if she feels worse. I explained I would have to call police due to her suicidal statesments this morning. PT understood all consequences. PT is AAOx3. PT left [id number]. 18:29 Police department made aware of circumstance for the call.
--- NOTE | 2024-05-11 19:18 | PC.NURSE ---
late entry approx 0715, PT agitated, removed chest leads,BP cuff, stating she is having withdrawals, I attempted to assist PT, pt stated she wanted to kill herself, I asked her to repeat herself and she said it again. I asked her if she had a plan, she said she would do it however she could. I stayed with PT until I got correspondence clerk attention, made her aware of PTS statement. Orthoptist Amy sat and watched her at approx 0730. Dr. Head made aware at approx 0730.
== END 2024-05-11 18:27 | disposition left against medical advice (07) | DRG 566 ==
LOC: SERX 13:44 → SERHOLD 15:02 → S2SX 20:15
PROVIDERS: Nurse Practitioner Family; Physician Assistant; Student in an Organized Health Care Education/Training Program; Admitting Provider Internal Medicine; Emergency Provider Emergency Medicine; PCP Family Medicine; Visit Provider Internal Medicine
DX: O24.011 Pre-existing type 1 diabetes mellitus, in pregnancy, first trimester (principal); E10.10 Type 1 diabetes mellitus with ketoacidosis without coma; O99.281 Endocrine, nutritional and metabolic diseases complicating pregnancy, first trimester; E03.9 Hypothyroidism, unspecified; O99.321 Drug use complicating pregnancy, first trimester; F15.10 Other stimulant abuse, uncomplicated; F14.10 Cocaine abuse, uncomplicated; O26.831 Pregnancy related renal disease, first trimester; N17.9 Acute kidney failure, unspecified; E86.0 Dehydration; O20.9 Hemorrhage in early pregnancy, unspecified; Z3A.01 Less than 8 weeks gestation of pregnancy; R19.00 Intra-abdominal and pelvic swelling, mass and lump, unspecified site; E87.1 Hypo-osmolality and hyponatremia; O99.351 Diseases of the nervous system complicating pregnancy, first trimester; G40.909 Epilepsy, unspecified, not intractable, without status epilepticus; O99.111 Other diseases of the blood and blood-forming organs and certain disorders involving the immune mechanism complicating pregnancy, first trimester; D72.829 Elevated white blood cell count, unspecified; E87.3 Alkalosis; Z91.148 Patient's other noncompliance with medication regimen for other reason; Z53.29 Procedure and treatment not carried out because of patient's decision for other reasons; R45.851 Suicidal ideations
CPT/HCPCS: 36415; 36600; 76801; 80053; 80069; 80307; 81001; 81025; 82010; 82803; 83036; 83605; 83690; 83735; 84100; 84484; 84702; 85025; 85610; 85730; 86900; 86901; 87040; 87081; 87086; 93005; 94762; 96361; 96374; 99285; J1200; J1815; J2060; J2405; J2765; J3480; J7030; J7120

== ENCOUNTER 2024-05-14 10:30 | Emergency (ER) | payer MEDICAID, SELFPAY ==
[2024-05-14 10:30] VITALS: BMI 24.9
--- NOTE | 2024-05-14 11:23 | XR_ITS ---
Examination: Complete OB ultrasound, less than 14 weeks, transabdominal Date and time of exam: 03/16/2024 1134 hours INDICATIONS: Vaginal bleeding and cramping beginning this morning, M.D. intrauterine gestational sac corresponding to 5 weeks 5 day gestational age OB sonogram May 10, 2024 Technique: Obstetrical ultrasound images less than 14 weeks performed via transabdominal imaging Findings: Uterus 8.9 cm endometrial stripe 0.6 cm 8mm cystic structure in the cervix most consistent with spontaneous in progress No pole No cardiac activity Right ovary 5.0 cm arterial flow Left ovary 3.1 cm arterial flow IMPRESSION: Findings most consistent with spontaneous in progress, recommend continued short-term follow-up transvaginal pelvic sonography
[2024-05-14 11:24] VITALS: BP 122/93; PULSE 102; RESP 18; TEMP 36.8; O2SAT 100
--- NOTE | 2024-05-14 11:30 | PD.EDVAGBL ---
ED OB Contraction Preg RMI/HPI General Chief complaint: Vaginal Bleeding Stated complaint: VAGINAL BLEEDING, 5 WKS Time Seen by Provider: 05/14/24 10:56 Source: patient Arrival date/time: 05/14/24 10:30 28-year-old female presents to the emergency department with complaints of vaginal bleeding and cramping. Approximately about 5 weeks of gestation. She reports she was recently aware that she was however had labs and ultrasound and fetus did not demonstrate heartbeat. Patient is worried and requesting for ultrasound and labs for recheck. Reports she has been attempting [facility] however no availability prompting her ED visit today. Patient denies dysuria, hematuria no fever. Mode of arrival: ambulatory Limitations: no limitations Related Data Home Medications ?Medication ?Instructions ?Recorded ?Confirmed buprenorphine 12 mg-naloxone 3 mg buccal 05/11/24 sublingual film Previous Rx's ?Medication ?Instructions ?Recorded aripiprazole 10 mg tablet 10 mg PO QDAY 9 days #9 tabs 12/08/23 blood sugar diagnostic (Accu-Chek #100 ea 12/08/23 SmartView Test Strips) blood-glucose meter (FreeStyle #1 ea 12/08/23 [place] Lite kit) insulin aspart U-100 100 unit/mL 8 unit (0.08 mL) subcut AC #15 mL 12/08/23 (3 mL) subcutaneous pen (Novolog FlexPen U-100 Insulin aspart) insulin glargine 100 unit/mL 20 unit (0.2 mL) subcut BID #10 mL 12/08/23 subcutaneous solution (Lantus U-100 Insulin) lancets 28 gauge (FreeStyle #100 ea 12/08/23 Lancets) lancets-blood glucose test #1 ea 12/08/23 strips-pen needles with gauze kit levothyroxine 88 mcg tablet 88 mcg PO QDAY 30 days #30 tabs 12/08/23 (Synthroid) pen needle, diabetic 29 gauge x #100 ea 12/08/23 1/2 (Comfort EZ Pen [place]) pen needle, diabetic 32 gauge x #100 ea 12/08/23 1/4 acetaminophen 325 mg tablet 650 mg (2 x 325 mg) PO Q6H PRN 05/14/24 (Tylenol) fever or pain #30 tabs Allergies Allergy/AdvReac Type Severity Reaction Status Date / Time codeine Allergy Intermediate Abdominal Verified 05/14/24 10:33 Pain Review of Systems Review of Systems Systems Reviewed: All systems reviewed, normal except as documented Narrative Review of Systems: Gen: No fever, no chills, no weight loss EYES: No discharge, no visual changes, no pain HEENT: No ear pain, no congestion, no sore throat PULM: No shortness of breath, no cough, no congestion CV: No chest pain, no dyspnea on exertion, no palpitations GI: No nausea, no vomiting, no diarrhea, no pain, no constipation : No frequency, no urgency,? no dysuria, +vaginal bleeding, cramping Musc/skel: No joint pain, no back pain Skin: No rash? ED Exam General Limitations: Present no limitations General appearance: Present alert and in no apparent distress Head Head exam: Present atraumatic Eye Eye exam: Present normal appearance, PERRL and EOMI ENT ENT exam: Present normal exam, normal oropharynx and mucous membranes moist Neck Neck exam: Present normal inspection, full ROM and trachea midline Chest Chest inspection: Present normal inspection and symmetric chest wall rise Respiratory Respiratory exam: Present normal lung sounds bilaterally Cardiovascular Cardiovascular exam: Present regular rate, normal rhythm and normal heart sounds Abdominal Exam Abdominal exam: Present soft and normal bowel sounds Extremities Exam Extremities exam: Present normal inspection and full ROM Back Exam Back exam: Present normal inspection and full ROM Neurological Exam Neurological exam: Present alert, oriented X3 and CN II-XII intact Psychiatric Psychiatric exam: Present normal affect and normal mood Skin Skin exam: Present warm, dry, intact and normal color Course Quality Measures none Orders Category Date Time Status US OB <= 14 weeks fetus Stat Exams 05/14/24 11:23 Completed Beta HCG,Quantitative Stat Lab 05/14/24 11:45 Completed Vital Signs Vital signs: Vital Signs Temperature 98.2 F 05/14/24 11:24 Pulse Rate 102 H 05/14/24 11:24 Respiratory Rate 18 05/14/24 11:24 Blood Pressure 122/93 H 05/14/24 11:24 Pulse Oximetry (%) 100 05/14/24 11:24 Oxygen Delivery Method Room Air 05/14/24 11:24 Vaginal Bleeding MDM Narrative MDM Narrative: 28-year-old female presents to the emergency department complaints of vaginal bleeding, cramping history of 5 weeks of gestation. Reports she was evaluated in the emergency department with 2 days ago and was reported to possibly be having a miscarriage. Patient is here because she is unable to follow-up outpatient. Patient requesting a repeat ultrasound and hCG. Patient hCG has trended down from [id number] currently. Patient's ultrasound demonstrates miscarriage in progress. All findings discussed with the patient patient aware of miscarriage in progress. Educated on symptoms to return which include fever, severe abdominal pain, hemorrhage. Otherwise she is to keep her appointment with her PCP or EMERGENCY MEDICAL SERVICE COORDINATOR. Patient data External records reviewed:: [facility] previous records Clinical information provided by:: patient Social determinants that could affect healthcare access:: none Patient has the following chronic illnesses:: DMt1 How is presenting disease/condition affected by chronic disease/condition?: uneffected by Evaluation data The following diagnostics were reviewed and interpreted by me:: lab results and radiology exam(s) Lab and/or radiology exams considered but not ordered:: labs Interpretation Summary: see above Examination: Complete OB ultrasound, less than 14 weeks, transabdominal Date and time of exam: 03/16/2024 1134 hours INDICATIONS: Vaginal bleeding and cramping beginning this morning, M.D. intrauterine gestational sac corresponding to 5 weeks 5 day gestational age OB sonogram May 10, 2024 Technique: Obstetrical ultrasound images less than 14 weeks performed via transabdominal imaging Findings: Uterus 8.9 cm endometrial stripe 0.6 cm 8mm cystic structure in the cervix most consistent with spontaneous in progress No pole No cardiac activity Right ovary 5.0 cm arterial flow Left ovary 3.1 cm arterial flow IMPRESSION: Findings most consistent with spontaneous in progress, recommend continued short-term follow-up transvaginal pelvic sonography Medications / Prescriptions Medications or Prescriptions considered but not ordered:: no Medication administrations:: no Consultations Consultation(s) initiated? (list below): No Diagnosis Vaginal Bleeding Differential Diagnosis: missed , threatened , dysfunctional uterine bleeding, menometrorrhagia, incomplete , ectopic without intrauterine and vaginal bleeding Most likely diagnosis given after review of the tests above:: Threatened miscarriage Admission Indicated Admission indicated?: not indicated Admission Request Was there a request for admission?: No Disposition Plan Disposition Plan: Discharge Discharge Attestation Discharge Attestation: The patient and all family members were given an opportunity to ask questions and understood the discharge instructions. Discharge instructions specifically effects, indications for sooner follow up or return to the emergency department, and the expected course of current diagnosis. Patient condition: Stable Discharge Plan Plan Patient Disposition: HOME (Self Care) Patient condition on transfer: Stable Prescriptions/Referrals Prescriptions/Med Rec: New acetaminophen [Tylenol] 325 mg tablet 650 mg PO Q6H PRN (Reason: fever or pain) Qty: 30 0RF No Action insulin glargine [Lantus U-100 Insulin] 100 unit/mL solution 20 unit subcut BID Qty: 10 0RF (DME) Accu-Chek SmartView Test Strip Strip See Rx Instructions .Route Qty: 100 5RF Rx Instructions: As directed levothyroxine [Synthroid] 88 MCG tablet 88 mcg PO QDAY 30 Days Qty: 30 3RF (DME) blood-glucose meter [FreeStyle [place] Lite] Kit See Rx Instructions .Route Qty: 1 0RF Rx Instructions: As directed (DME) pen needle, diabetic [Comfort EZ Pen [place]] 29 gauge x 1/2 needle See Rx Instructions .Route Qty: 100 0RF Rx Instructions: As directed aripiprazole 10 mg tablet 10 mg PO QDAY 9 Days Qty: 9 0RF insulin aspart U-100 [Novolog FlexPen U-100 Insulin] 100 unit/mL (3 mL) insulin pen 8 unit SUBCUT AC Qty: 15 0RF (DME) pen needle, diabetic 32 gauge x 1/4 needle See Rx Instructions .Route Qty: 100 0RF Rx Instructions: As directed (DME) lancets [FreeStyle Lancets] 28 gauge Misc Qty: 100 0RF Rx Instructions: Test BID (DME) lancet-gluc [id number] Kit See Rx Instructions .Route Qty: 1 5RF Rx Instructions: As directed buprenorphine-naloxone 12-3 mg film BUCCAL Patient Comments: dissolve 1 FILM under the tongue once daily Referrals: No Primary/Family,Physician [Primary Care Provider] - In 1 week Problem List Clinical Impression: Incomplete miscarriage Patient/Caregiver Discharge Instructions Discharge Activity: activity as tolerated Education Materials: ED Miscarriage, Incomplete Additional Instructions: It appears that you are having a miscarriage. Your hCG levels dropped from 5000 down to 1000. And no heartbeat is measurable during ultrasound. I would encourage you to follow-up with your EMERGENCY MEDICAL SERVICE COORDINATOR or primary doctor for further care. And take [id number] Tylenol for pain as directed Return to the emergency department if you have any worsening vaginal bleeding, pelvic pain, fever or hemorrhage Print Language: Croatian Stand Alone Forms: Kourtney Award Info., Patient Portal Info Letter PA/CONTRACT MANAGEMENT SPECIALIST Supervising Physician PA/CONTRACT MANAGEMENT SPECIALIST Supervising Physician: Dr Jackson
[2024-05-14 13:12] LABS: Beta HCG,Quantitative 1736 mIU/mL (<5.0)
== END 2024-05-14 13:40 | disposition home or self-care (01) ==
PROVIDERS: Nurse Practitioner Primary Care; Emergency Provider Emergency Medicine
DX: O03.4 Incomplete spontaneous abortion without complication (principal); Z3A.01 Less than 8 weeks gestation of pregnancy
CPT/HCPCS: 36415; 76801; 84702; 99284

== ENCOUNTER 2024-07-09 22:06 | Inpatient (IN) | payer MEDICAID, SELFPAY ==
[2024-07-09 22:09] VITALS: BP 143/82; PULSE 123; RESP 26; TEMP 37.2; O2SAT 99
--- NOTE | 2024-07-09 22:11 | EDNOTE_ITS ---
Altered Mental Status RME/HPI General Chief Complaint: Altered Mental Status Stated Complaint: AMS Time Seen by Provider: 07/09/24 22:09 Arrival date/time: 07/09/24 22:06 RME / HPI RME / HPI narrative: Dr. Ulloa?s Main ED Evaluation: 29yo female with a history of DMI, HTN BIBA from home presents to the ED for a chief complaint of AMS. Per EMS, patient has been out of her insulin for the last 3 days. EMS endorses N/V with fruity odor and shortness of breath. EMS states the patient was initially confused on scene, but became more alert en route. Blood sugar with EMS read as high . Patient endorses having generalized body aches and weakness. No fever, chills or any other associated symptoms. She denies any recent drug use. Related Data Home Medications ?Medication ?Instructions ?Recorded ?Confirmed buprenorphine 12 mg-naloxone 3 mg buccal 05/11/24 sublingual film Previous Rx's ?Medication ?Instructions ?Recorded aripiprazole 10 mg tablet 10 mg PO QDAY 9 days #9 tabs 12/08/23 blood sugar diagnostic (Accu-Chek #100 ea 12/08/23 SmartView Test Strips) blood-glucose meter (FreeStyle #1 ea 12/08/23 [place] Lite kit) insulin aspart U-100 100 unit/mL 8 unit (0.08 mL) subc ut AC #15 mL 12/08/23 (3 mL) subcutaneous pen (Novolog FlexPen U-100 Insulin aspart) insulin glargine 100 unit/mL 20 unit (0.2 mL) subcut B ID #10 mL 12/08/23 subcutaneous solution (Lantus U-100 Insulin) lancets 28 gauge (FreeStyle #100 ea 12/08/23 Lancets) lancets-blood glucose test #1 ea 12/08/23 strips-pen needles with gauze kit levothyroxine 88 mcg tablet 88 mcg PO QDAY 30 days #30 tabs 12/08/23 (Synthroid) pen needle, diabetic 29 gauge x #100 ea 12/08/23 1/2 (Comfort EZ Pen [place]) pen needle, diabetic 32 gauge x #100 ea 12/08/23 1/4 acetaminophen 325 mg tablet 650 mg (2 x 325 mg) PO Q6H PRN 05/14/24 (Tylenol) fever or pain #30 tabs Allergies Allergy/AdvReac Type Severity Reaction Status Date / Time codeine Allergy Intermediate Abdominal Verified 05/14/24 10:33 Pain Review of Systems Review of Systems Systems Reviewed: All systems reviewed, normal except as documented Past Medical History Past Medical History NEUROLOGIC: Negative Neurological Disorders, Cerebrovascular Accident, Transient Ischemic Attacks (TIA), Dementia, Alzheimer's Disease, Parkinson's Disease, Brain Tumor, Meningitis, Seizures, Epilepsy, Multiple Sclerosis, Cerebral Palsy, Amyotrophic Lateral Sclerosis (ALS/Freida Gehrig's), Guillain-Sunderland Syndrome, Spina Bifida, Paralysis, Peripheral Neuropathy, Mullen's Palsy, Subdural Hematoma, Migraine, Head Trauma, Spinal Cord Injury or Traumatic Brain Injury CARDIAC: Negative Cardiac Disorders, Myocardial Infarction, Cardiac Arrhythmia, Atrial Fibrillation, Angina, Heart Murmur, Coronary Artery Disease, Atherosclerotic Heart Disease, Peripheral Vascular Disease, Hypercholesterolemia, Aneurysm, Congestive Heart Failure, Congenital Heart D isease, Valvular Heart Disease, Rheumatic Fever, Cardiomyopathy, Edema, Pericarditis, Cellulitis, Deep Vein Thrombosis, Hypertension, Hypotension or Varicose Veins RESPIRATORY: Negative Chronic Obstructive Pulmonary Disease (COPD), Asthma, Bronchitis, Emphysema, Pneumonia, Pulmonary Fibrosis, Cystic Fibrosis, Tuberculosis, Pulmonary Embolism, Pulmonary Edema or Sleep Apnea GASTROINTESTINAL: Negative Gastrointestinal Disorders, Hepatitis, Cirrhosis, Pancreatitis, Celiac Disease, Gall Bladder Disease, Gastrointestinal Bleed, Esophageal Varices, López's Esophagus, Colitis, Ulcerative Colitis, D iverticulitis, Diverticulosis, Ulcer, Colorectal Cancer, Irritable Bowel, Crohn's Disease, Obstructive Bowel, Hiatal Hernia, Hemorrhoids, Gastroesophageal Reflux Disease or Obesity GENITOURINARY: Negative Genitourinary Disorders, Renal Disease, Kidney Stones, Polycystic Kidney Disease, Neurogenic Bladder, Inguinal Hernia, Dialysis, Prostate Cancer or Benign Prostatic Hyperplasia REPRODUCTIVE: Positive Previous Pregnancies; Negative Breast Cancer, Endometriosis, Genital Herpes, Gonorrhea, Pelvic Inflammatory Disease, Syphilis, Testicular Cancer or Uterine Prolapse MUSCULOSKELETAL: Positive Musculoskeletal Disorders (pt complaint of left knee pain and giving out x 1 year); Negative Muscular Dystrophy, Myasthenia Gravis, Marfan's Syndrome, Bone Cancer, Arthritis, Rheumatoid Arthritis, Osteoporosis, Degenerative Disk Disease, Gout, Scoliosis, Carpal Tunnel Syndrome, Fibromyalgia, Fractures, Degenerative Joint Disease, Osteomyelitis or Poliovirus ENT: Negative Cataracts, Glaucoma, Blind, Retinal Detachment, Macular Degeneration, Ear Infection, Deafness, Head Trauma or Eye Prosthesis ENDOCRINE: Positive Diabetes Mellitus Type 1, Diabetes Mellitus Type 2, Hypoglycemia and Hypothyroidism; Negative Endocrine Disorders, Zoltan's Syndrome, Darci's Disease, Hyperthyroidism, Parathyroid Disease, Pituitary Disease, Systemic Lupus Erythematosus, Syndrome of Inappropriate Antidiuretic Hormone (SIADH), Adrenal Disease or Graves' Disease HEMATOLOGIC: Negative Blood Disorders, Anemia, Leukemia, Hemophilia, Thalassemia, Sickle Cell Disease or Clotting Problems PSYCHO/SOCIAL: Positive Psychiatric Problems, Recreational Drug Use, Depression, Anxiety and Depression; Negative Schizophrenia, Bipolar Disorder, Behavior Problems, Self-Mutilation, Attention Deficit Disorder, Attention Deficit Hyperactivity Disorder, Post Traumatic Stress Disorder or Eating Disorder OTHER HISTORY: Positive Hospitalization and Falls (from dizzness); Negative Autoimmune Disease, Down Syndrome, Autism, Developmental Delay, Shingles, Blood Transfusions, Blood Transfusion Reaction, Anesthesia Reactions, Organ Transplant, Chemotherapy, Radiation Therapy, Hyperbaric Therapy, MRSA, VRSA, Vancomycin-Resistant Enterococci, Human Immunodeficiency Virus (HIV), Chicken Pox, Measles, Mumps, Rubella (Croatian Measles), Pertussis, Clostridium Difficile, Cancer, Breast Cancer, Cervical Cancer, Colorectal Cancer, Lung Cancer, Ovarian Cancer, Prostate Cancer or Testicular Cancer Family History FAMILY HISTORY: Positive Family Psychiatric Problems and Family Cancer; Negative Family Respiratory Disorders, Family Cardiac Disorders, Family Gastrointestinal Problems, Family Surgery or Family Anesthesia Reaction Surgical History SURGICAL: Positive Section; Negative Cardiac Surgery, Open Heart Surgery, Coronary Artery Bypass Graft, Valve Replacement, Vascular Surgery, Coronary Stent, Cardiac Catheterization, Pacemaker, Angiogram, Auto Implanted Cardiovert Defib, Carotid Endarterectomy, Endocrine Surgery, Thyroidectomy, Ear Surgery, Tympanostomy Tube, Eye Surgery, Nose Surgery, Oral Surgery, Tonsillectomy, Adenoidectomy, Cochlear Implant, Corneal Transplant, Throat Surgery, Abdominal Surgery, Tracheostomy, Gastric Bypass Surgery, Gastrostomy, Bowel Surgery, Nephrectomy, Transurethral Resection, Joint Replacement, Amputation, Open Reduction Internal Fixation, Arthroscopy, Neurologic Surgery, Brain Shunt, Mastectomy, Lumpectomy, Hysterectomy, Tubal Ligation or Organ Transplant Social History SMOKING STATUS: Current some day smoker SECOND HAND EXPOSURE: No ED Exam Narrative Physical exam: GENERAL APPEARANCE: alert and oriented x 4, appears lethargic, no acute distress VITALS: All vitals were reviewed and the pulse ox is 99% on 10L/oxy mask, which is abnormal according to my interpretation. HEENT: Normocephalic, atraumatic; pupils equal, round, reactive to light; EOMI; mucous membranes pink, moist; oropharynx clear NECK: Supple LUNGS: CTABL; tachypneic, no wheezes, no rales, no rhonchi HEART: Tachycardic, regular rhythm; normal S1, S2; no murmurs ABDOMEN: non distended; normal BS; soft, no tenderness, no guarding, no rebound; no masses, no organomegaly, no hernia BACK: no CVA tenderness EXTREMITIES: atraumatic; no edema NEUROLOGIC: awake; alert and oriented x4; cranial nerves II-XII grossly intact; no focal sensory or motor deficits PSYCHIATRIC: appropriate mood and affect SKIN: warm, dry, normal color; no rashes Course Course Course Narrative: CXR is ordered for determining the etiology of AMS. Quality Measures none Orders Category Date Time Status Bedside Blood Glucose STAT Care 07/09/24 22:13 Active Marketing Technology Coordinator STAT Care 07/09/24 22:13 Active DKA Protocol QSHIFT Care 07/09/24 22:13 Active DKA Protocol QSHIFT Care 07/10/24 00:18 Active EKG (ED ONLY) *Do not use* NOW Care 07/09/24 22:13 Completed [place] [Urinary Catheter] QS Care 07/09/24 23:14 Active Insert IV STAT Care 07/09/24 22:13 Active Notify provider NEEDED Care 07/09/24 22:13 Active EKG (ED Only) Stat Exams 07/09/24 22:13 Draft XR chest 1V portable Stat Exams 07/09/24 22:18 Taken Alcohol, Blood Medical Stat Lab 07/09/24 23:30 Completed Arterial Blood Gas Stat Lab 07/10/24 00:52 Completed Beta Hydroxybutyrate Stat Lab 07/09/24 23:30 Completed Blood Culture (Lab) Stat Lab 07/09/24 23:30 Received CBC Stat Lab 07/09/24 23:30 Completed Comprehensive Metabolic Panel Stat Lab 07/09/24 23:30 Completed Drug Screen,Urine Stat Lab 07/09/24 22:21 Ordered Lactate (Lactic Acid) Stat Lab 07/09/24 23:30 Results Magnesium Stat Lab 07/09/24 23:30 Completed Phosphorous Stat Lab 07/09/24 23:30 Completed Urinalysis Stat Lab 07/09/24 22:13 Ordered Urine Culture Stat Lab 07/09/24 22:13 Ordered Acetaminophen Ivpb [Ofirmev Inj] Med 07/09/24 23:12 Discontinued 1,000 mg in 100 ml IV X1 Dextrose 50% Syr [D50w Syringe Abboject] Med 07/09/24 22:13 Active 25 ml IV [id number] PRN Magnesium Sulfate 2 GM Ivpb [Magnesium Sulfate Ivpb] Med 07/09/24 22:13 Active 2 gm in 50 ml IV 25 mls/hr Morphine Inj Med 07/09/24 23:12 Discontinued 2 mg IVP X1 ONE Ondansetron Inj [Zofran Inj] Med 07/09/24 23:12 Discontinued 4 mg IV X1 ONE POT PHOS 15 mMol in NS 250 ML [Pot Phos 15 mMol in NS Med 07/09/24 22:13 Active 250 ml] 15 mmol in 250 ml IV PRN Pre-Mixed [Pre-mixed Bag] 1 bag Med 07/10/24 00:18 Active Insulin Reg 100 Units/100 ml [Myxredlin] 100 unit IV 0.1 unit/kg/hr Ringers Lactated 1000 ml [Lactated Ringers] 1,000 ml Med 07/09/24 22:19 Discontinued IV 1,000 mls/hr Ringers Lactated 1000 ml [Lactated Ringers] 1,000 ml Med 07/10/24 00:20 Active IV 1,000 mls/hr Sodium Bicarb 8.4% 50ml Vial* Med 07/10/24 01:07 Discontinued 50 meq IV X1 ONE Sodium Bicarb 8.4% SYR Med 07/09/24 22:13 Active 50 ml IV PRN PRN Vital Signs Vital signs: Vital Signs Temperature 99.0 F 07/09/24 22:09 Pulse Rate 123 H 07/09/24 22:09 Respiratory Rate 26 H 07/09/24 22:09 Blood Pressure 143/82 H 07/09/24 22:09 Pulse Oximetry (%) 99 07/09/24 22:09 Oxygen Delivery Method Oxy Mask 07/09/24 22:09 Oxygen Flow Rate 10 07/09/24 22:09 Altered Mental Status MDM Narrative MDM Narrative:: Scribe Attestation: 07/09/24 - Derrick, Danica Flannery am scribing for and in the presence of Dr. Ulloa. 29yo female with a history of DMI, HTN BIBA from home presents to the ED for a chief complaint of AMS. Per EMS, patient has been out of her insulin for the last 3 days. EMS endorses N/V with fruity odor and shortness of breath. EMS states the patient was initially confused on scene, but became more alert en route. Blood sugar with EMS read as high . Patient endorses having generalized body aches and weakness. No fever, chills or any other associated symptoms. She denies any recent drug use. Patient ripped out her IV and is becoming more altered. 0106: Patient is tachypneic with a RR in the 40s and tachycardic in the 130s. Patient is now more confused. Blood pressure is 178/103. Sodium bicarbonate ordered due to her abnormal ABG results. 0141: Discussed case with Dr. Humphrey from Hospitalist service regarding admission. Discussed patients ED course, exam findings, labs, and radiology results. The Hospitalist agrees to accept the patient for admission. Patient data External records reviewed:: [facility] previous records (Per chart review, patient was admitted here on 05/10/24 for DKA.) Clinical information provided by:: patient and EMS Social determinants that could affect healthcare access:: substance use (history of methamphetamine and cocaine use) Patient has the following chronic illnesses:: DMI, HTN How is presenting disease/condition affected by chronic disease/condition?: exacerbated by Evaluation data The following diagnostics were reviewed and interpreted by me:: lab results, radiology exam(s) and EKG tracing(s) Lab and/or radiology exams considered but not ordered:: none Interpretation Summary: WBC count is elevated at 20.9, Sodium is 132, Potassium is elevated at 6.3, Carbion Dioxide is less than 10, Anion Gap is 26, Creatinine is 2.1, Glucose is elevated at 884, Lactic Acid is elevated at 4.7, Beta Hydroxybutyrate is elevated at 5.6, Blood Alcohol is negative, according to my interpretation. ABG shows a low pH of 6.91, pCO2 is low at 8, HCO3 is low at 2, according to my interpretation. CXR shows hyperinflation, normal cardiac silhouette, normal sharp diaphragmatic edge, no infiltrates, normal costophrenic angles, according to my interpretation. EKG done at 2251, sinus tachycardia, rate of 128, normal axis, no ectopy, ST depressions in V3-V6, according to my interpretation. Medications / Prescriptions Medications or Prescriptions considered but not ordered:: none Medication administrations:: Medication Administration History Dextrose (Dextrose 50%-Water Inj 50 Ml Syringe) 25 ml IV [id number] PRN PRN Reason: Blood Sugar - Low Magnesium Sulfate (Magnesium Sulfate Ivpb) 2 gm in 50 mls @ 25 mls/hr IV .Q2H PRN PRN Reason: PER DKA PROTOCOL Stop: 08/08/24 22:12 Potassium Phosphate (Pot Phos 15 Mmol In Ns 250 Ml) 15 mmol in 250 mls @ 62.5 mls/hr IV PRN PRN PRN Reason: Phosphate <= 1mg/dL Stop: 08/08/24 22:12 Insulin Human Regular 100 unit (/ IV Miscellaneous Supplies) 100 mls @ 6.727 mls/hr IV .[id number] PRN; Protocol PRN Reason: PER PROTOCOL Stop: 08/09/24 00:17 Last Admin: 07/10/24 01:25 Dose: 0.1 unit/kg/hr, 6.727 mls/hr Documented By: CG Co-signed By: KRISTIE Lactated Ringer's (Lactated Ringers) 1,000 mls @ 1,000 mls/hr IV .Q1H TRUDI Stop: 08/09/24 00:19 Last Admin: 07/10/24 00:58 Dose: 1,000 mls/hr Documented By: MARYSOL Sodium Bicarbonate (Sodium Bicarb Inj 8.4% Syr 50 Ml Syringe) 50 ml IV PRN PRN PRN Reason: For ph <= to 7.0 Stop: 08/08/24 22:12 Last Admin: 07/10/24 01:24 Dose: 50 ml Documented By: CG Discontinued Medications Lactated Ringer's (Lactated Ringers) 1,000 mls @ 1,000 mls/hr IV .Q1H ONE Stop: 07/09/24 23:18 Last Admin: 07/09/24 22:37 Dose: 1,000 mls/hr Documented By: KRISTIE Acetaminophen (Ofirmev Inj) 1,000 mg in 100 mls @ 250 mls/hr IV X1 ONE Stop: 07/09/24 23:35 Last Admin: 07/10/24 01:33 Dose: 250 mls/hr Documented By: CG Morphine Sulfate (Morphine Sulf Inj 10 Mg/Ml Vial) 2 mg IVP X1 ONE Stop: 07/09/24 23:13 Last Admin: 07/10/24 00:45 Dose: 2 mg Documented By: CG Ondansetron HCl (Ondansetron Inj 2 Mg/Ml Inj 2 Ml) 4 mg IV X1 ONE; Protocol Stop: 07/09/24 23:13 Last Admin: 07/10/24 00:51 Dose: 4 mg Documented By: CG Sodium Bicarbonate (Sodium Bicarb Inj 8.4% 1 Meq/Ml 50 Ml Vial) 50 meq IV X1 ONE Stop: 07/10/24 01:08 Last Admin: 07/10/24 01:33 Dose: Not Given Documented By: CG Non-Admin Reason: Other, see note Admin: 07/10/24 01:17 Dose: 50 meq Documented By: CG see above Consultations Consultation(s) initiated? (list below): Yes Diagnosis Differential diagnosis altered mental status: other (hyperglycemia without ketosis, DKA, hyperosmolar state, dehydration, electrolyte abnormality) Most likely diagnosis given after review of the tests above:: DKA, Leukocytosis, LEONA (acute kidney injury), High anion gap metabolic acidosis, Acute hyperkalemia Admission Indicated Admission indicated?: indicated Admission Request Was there a request for admission?: Yes Admission Attestation Admission request attestation: Discussed case with [] from Hospitalist service regarding admission. Discussed patients ED course, exam findings, labs, and radiology results. The Hospitalist [agrees,declines] to accept the patient for admission. Disposition Plan Disposition Plan: Admit Critical Care Time Critical Care Time Critical Care Time: Yes Total Critical Care Time (min.): 80 Attestation: The high probability of sudden, clinically significant deterioration in the patient?s condition required the highest level of my preparedness to intervene urgently. The services I provided to this patient were to treat and/or prevent clinically significant deterioration. Services included the following: chart data review, reviewing nursing notes and/or old charts, documentation time, communication consultant collaboration regarding findings and treatment options, medication orders and management, direct patient care, vital sign assessments and ordering, interpreting and reviewing diagnostic studies and lab tests. Aggregate critical care time includes only time during which I was engaged in work directly related to the patient?s care, as described above, whether at bedside or elsewhere in the Emergency Department. It did not include time spent performing other reported procedures or the services of residents, students, nurses or physician assistants. Discharge Plan Plan Patient Disposition: Admit Acute Care w/in Hospital Discharge Disposition comment: Admitted to Dr. Humphrey Prescriptions/Referrals Prescriptions/Med Rec: No Action insulin glargine [Lantus U-100 Insulin] 100 unit/mL solution 20 unit subcut BID Qty: 10 0RF (DME) Accu-Chek SmartView Test Strip Strip See Rx Instructions .Route Qty: 100 5RF Rx Instructions: As directed levothyroxine [Synthroid] 88 MCG tablet 88 mcg PO QDAY 30 Days Qty: 30 3RF (DME) blood-glucose meter [FreeStyle [place] Lite] Kit See Rx Instructions .Route Qty: 1 0RF Rx Instructions: As directed (DME) pen needle, diabetic [Comfort EZ Pen [place]] 29 gauge x 1/2 needle See Rx Instructions .Route Qty: 100 0RF Rx Instructions: As directed aripiprazole 10 mg tablet 10 mg PO QDAY 9 Days Qty: 9 0RF insulin aspart U-100 [Novolog FlexPen U-100 Insulin] 100 unit/mL (3 mL) insulin pen 8 unit SUBCUT AC Qty: 15 0RF (DME) pen needle, diabetic 32 gauge x 1/4 needle See Rx Instructions .Route Qty: 100 0RF Rx Instructions: As directed (DME) lancets [FreeStyle Lancets] 28 gauge Misc Qty: 100 0RF Rx Instructions: Test BID (DME) lancet-gluc [id number] Kit See Rx Instructions .Route Qty: 1 5RF Rx Instructions: As directed acetaminophen [Tylenol] 325 mg tablet 650 mg PO Q6H PRN (Reason: fever or pain) Qty: 30 0RF buprenorphine-naloxone 12-3 mg film BUCCAL Patient Comments: dissolve 1 FILM under the tongue once daily Referrals: No Primary/Family,Physician [Primary Care Provider] - In 1 week Problem List Clinical Impression: Diabetic ketoacidosis, Leukocytosis, LEONA (acute kidney injury), High anion gap metabolic acidosis, Acute hyperkalemia Patient/Caregiver Discharge Instructions Print Language: Croatian Stand Alone Forms: [facility]ourtney Award Info., Patient Portal Info Letter
--- NOTE | 2024-07-09 22:13 | EKG_ITS ---
[facility] Test Date: 2024-07-09 Pat Name: MARIBEL JOHNSON Department: Room: - Gender: Female Computer Aide: : 1995 Requested By: Bassem Mckinnon Order Number: [id number] Reading MD: Bassem Mckinnon Measurements Intervals [place] Rate: 128 P: 84 [place]: 160 QRS: 94 QRSD: 89 T: 71 QT: 329 QTc: 480 Interpretive Statements SINUS TACHYCARDIA BORDERLINE RIGHT AXIS DEVIATION [QRS AXIS > 90] ABNORMAL RHYTHM ECG Compared to ECG 05/11/2024 09:18:57 Atrial abnormality no longer present /store/S0/[id number].pdf
--- NOTE | 2024-07-09 22:18 | XR_ITS ---
Examination: AP chest single view TECHNIQUE: AP portable upright chest single view Date and time: July 10, 2024 12:15 AM INDICATIONS: Diabetic ketoacidosis today. FINDINGS: Normal heart size. No aspiration pneumonia or pulmonary edema The osseous structures are mildly demineralized IMPRESSION: No active disease
[2024-07-09 22:33] VITALS: PULSE 126; RESP 24; O2SAT 99
[2024-07-09] MEDS: RINGERS LACTATED 1000 ML 1,000 ML IV (22:37)
[2024-07-09 22:48] VITALS: BP 153/112; PULSE 127; RESP 27; O2SAT 100
[2024-07-09 23:47] LABS: Lactate (Lactic Acid) 4.7 mMol/L (0.4-2.0)
[2024-07-09 23:50] LABS: Basophils # (Auto) 0.1 Thou/mm3 (0.0-0.2); Basophils % (Auto) 1 % (0-2.5); Eosinophils % (Auto) 0 % (0-10); Hematocrit 41.5 % (36.0-46.0); Hemoglobin 13.6 g/dL (12.0-16.0); Immature Granulocytes % (Auto) 1 % (0-0); Immature Granulocytes Auto 0.22 Thou/mm3 (0.00-0.00); Lymphocytes # (Auto) 1.2 Thou/mm3 (1.0-4.8); Lymphocytes % (Auto) 6 % (10-50); Mean Corpuscular HGB Conc 32.8 g/dl (31.0-37.0); Mean Corpuscular Hemoglobin 28.3 pg (25.0-35.0); Mean Corpuscular Volume 86 fL (80-100); Monocytes # (Auto) 0.5 Thou/mm3 (0.0-0.8); Monocytes % (Auto) 2 % (0-12); Neutrophils # (Auto) 18.8 Thou/mm3 (1.8-7.7); Neutrophils % (Auto) 90 % (37-80); Nucleated Red Blood Cell % 0 /100 WBC (0); Platelet Count 432 Thou/mm3 (140-440); Red Blood Count 4.81 Miln/mm3 (4.00-5.20); White Blood Count 20.9 Thou/mm3 (3.6-11.0)
[2024-07-10] VITALS (26 sets, daily range): BP systolic 96–178; BP diastolic 59–103; PULSE 81–133; RESP 10–100; TEMP 36.3–37.8; O2SAT 97–100; BMI 21.9; BMI 22.8
[2024-07-10 00:10] LABS: Beta Hydroxybutyrate 5.6 mmol/L (<0.6)
[2024-07-10 00:13] LABS: Alanine Aminotransferase 18 U/L (10-49); Albumin, Serum 4.5 gm/dL (3.5-5.0); Albumin/Globulin Ratio 1.6 (1.2-2.2); Alcohol, Blood Medical < 3.0 mg/dL (0-10.0); Alkaline Phosphatase 132 U/L (46-116); Anion Gap 26 (7-16); Aspartate Amino Transferase 26 U/L (0-34); BUN/Creatinine Ratio 9 Ratio (12-20); Bilirubin,Total 0.5 mg/dL (0.3-1.2); Blood Urea Nitrogen 19 mg/dL (9-23); Calcium 9.2 mg/dL (8.3-10.6); Calcium (Corrected) 9.2 mg/dL (8.5-10.1); Chloride 96 mMol/L (98-107); Creatinine (Component) 2.1 mg/dL (0.6-1.3); Globulin 2.9 gm/dL (2.3-3.5); Magnesium 2.4 mg/dL (1.6-2.6); Osmolality,Calculated 310 (275-295); Phosphorous 5.6 mg/dL (2.4-5.1); Sodium 132 mMol/L (136-145); Total Protein 7.4 gm/dL (5.7-8.2); eGFR 32 See Note
[2024-07-10 00:17] LABS: Carbon Dioxide < 10.0 mMol/L (20.0-31.0); Glucose 884 mg/dL (74-106); Potassium 6.3 mMol/L (3.4-5.1)
[2024-07-10] MEDS: MORPHINE SULF INJ 10 MG/ML VIAL 2 MG IVP (00:45)
[2024-07-10] MEDS: ONDANSETRON INJ 2 MG/ML INJ 2 ML 4 MG IV (00:51)
[2024-07-10] MEDS: RINGERS LACTATED 1000 ML 1,000 ML IV (00:58)
[2024-07-10 00:59] LABS: Base Excess -30 (-3-3); HCO3 2 mEq/L (20-26); Inspired Oxygen, FIO2 21 %; O2 Saturation 97 % (91-98); PCO2 8 mmHg (32.0-48.0); PO2 135 mmHg (83-108)
[2024-07-10 01:01] LABS: Allen Test Performed/OK; Puncture Site Right Radial
[2024-07-10 01:03] LABS: pH, Arterial 6.91 (7.35-7.45)
[2024-07-10] MEDS: SODIUM BICARB INJ 8.4% 1 mEq/ML 50 ML VIAL 50 MEQ IV (01:17)
[2024-07-10] MEDS: Sodium Bicarb Inj 8.4% SYR 50 ML SYRINGE IV (01:24)
[2024-07-10] MEDS: INSULIN REG 100 UNITS/100 ML 100 UNIT in PRE-MIXED 1 BAG 6.727 UNIT IV (01:25)
[2024-07-10] MEDS: ACETAMINOPHEN IVPB 1,000 MG/100 ML VIAL 250 MG IV (01:33)
[2024-07-10 02:39] LABS: Reflex Lactate? Y
--- NOTE | 2024-07-10 02:40 | PC.NURSE ---
Glucose reads HI, continue insulin drip at 0.1 units/kilogram
--- NOTE | 2024-07-10 02:46 | PD.RESHP ---
Documentation for date of: 07/10/24 [facility] History of Present Illness History of present illness: Ms. Kiana Main is a 29 year old lady with a past medical history significant for Type 1 DM, hypertension who was brought to the ED on 07/09/2024 due to altered mental status. Due to the patient's altered mentation, history was obtained through chart review. EMS records state that the patient apparently had not taker her insulin within the last 3-4 days. EMS also noted that the patient had a fruity odor to her breath along with symptoms of nausea, vomiting and SOB, myalgias, weakness and abdominal pain. She was initially confused, however her mentation improved whilst en route to the ED. ED course: On arrival to the ED the patient's vitals are significant for a blood pressure of 143/82, pulse 123, RR 26, temp 99.0 ?F, 99% on 10 L/min via oxy mask. Initial lab studies were significant for a leukocytosis of 20.9. CHEM panel was significant for a sodium of 132, potassium of 6.3, chloride 96, CO2 less than 10, a gap 26 and a creatinine of 2.1. Glucose 884. Serum osmolality of 310. Lactic acid 4.7 and phosphorus 5.6. LFTs with a mildly elevated alk phos of 132. BHB of 5.6. ABG showed a markedly low pH of 6.91, pCO2 is low at 8, HCO3 is low at 2. Patient was found to be in DKA and was subsequently admitted to the ICU for treatment and management. Review of Systems Review of Systems ROS Unobtainable: unobtainable due to mental status Past Medical History Past Medical History NEUROLOGIC: Negative Neurological Disorders, Cerebrovascular Accident, Transient Ischemic Attacks (TIA), Dementia, Alzheimer's Disease, Parkinson's Disease, Brain Tumor, Meningitis, Seizures, Epilepsy, Multiple Sclerosis, Cerebral Palsy, Amyotrophic Lateral Sclerosis (ALS/Freida Gehrig's), Guillain-Mathews Syndrome, Spina Bifida, Paralysis, Peripheral Neuropathy, Mullen's Palsy, Subdural Hematoma, Migraine, Head Trauma, Spinal Cord Injury or Traumatic Brain Injury CARDIAC: Negative Cardiac Disorders, Myocardial Infarction, Cardiac Arrhythmia, Atrial Fibrillation, Angina, Heart Murmur, Coronary Artery Disease, Atherosclerotic Heart Disease, Peripheral Vascular Disease, Hypercholesterolemia, Aneurysm, Congestive Heart Failure, Congenital Heart Disease, Valvular Heart Disease, Rheumatic Fever, Cardiomyopathy, Edema, Pericarditis, Cellulitis, Deep Vein Thrombosis, Hypertension, Hypotension or Varicose Veins RESPIRATORY: Negative Chronic Obstructive Pulmonary Disease (COPD), Asthma, Bronchitis, Emphysema, Pneumonia, Pulmonary Fibrosis, Cystic Fibrosis, Tuberculosis, Pulmonary Embolism, Pulmonary Edema or Sleep Apnea GASTROINTESTINAL: Negative Gastrointestinal Disorders, Hepatitis, Cirrhosis, Pancreatitis, Celiac Disease, Gall Bladder Disease, Gastrointestinal Bleed, Esophageal Varices, López's Esophagus, Colitis, Ulcerative Colitis, Diverticulitis, Diverticulosis, Ulcer, Colorectal Cancer, Irritable Bowel, Crohn's Disease, Obstructive Bowel, Hiatal Hernia, Hemorrhoids, Gastroesophageal Reflux Disease or Obesity GENITOURINARY: Negative Genitourinary Disorders, Renal Disease, Kidney Stones, Polycystic Kidney Disease, Neurogenic Bladder, Inguinal Hernia, Dialysis, Prostate Cancer or Benign Prostatic Hyperplasia REPRODUCTIVE: Positive Previous Pregnancies; Negative Breast Cancer, Endometriosis, Genital Herpes, Gonorrhea, Pelvic Inflammatory Disease, Syphilis, Testicular Cancer or Uterine Prolapse MUSCULOSKELETAL: Positive Musculoskeletal Disorders (pt complaint of left knee pain and giving out x 1 year); Negative Muscular Dystrophy, Myasthenia Gravis, Marfan's Syndrome, Bone Cancer, Arthritis, Rheumatoid Arthritis, Osteoporosis, Degenerative Disk Disease, Gout, Scoliosis, Carpal Tunnel Syndrome, Fibromyalgia, Fractures, Degenerative Joint Disease, Osteomyelitis or Poliovirus ENT: Negative Cataracts, Glaucoma, Blind, Retinal Detachment, Macular Degeneration, Ear Infection, Deafness, Head Trauma or Eye Prosthesis ENDOCRINE: Positive Diabetes Mellitus Type 1, Diabetes Mellitus Type 2, Hypoglycemia and Hypothyroidism; Negative Endocrine Disorders, Zoltan's Syndrome, Winona's Disease, Hyperthyroidism, Parathyroid Disease, Pituitary Disease, Systemic Lupus Erythematosus, Syndrome of Inappropriate Antidiuretic Hormone (SIADH), Adrenal Disease or Graves' Disease HEMATOLOGIC: Negative Blood Disorders, Anemia, Leukemia, Hemophilia, Thalassemia, Sickle Cell Disease or Clotting Problems PSYCHO/SOCIAL: Positive Psychiatric Problems, Recreational Drug Use, Depression, Anxiety and Depression; Negative Schizophrenia, Bipolar Disorder, Behavior Problems, Self-Mutilation, Attention Deficit Disorder, Attention Deficit Hyperactivity Disorder, Post Traumatic Stress Disorder or Eating Disorder OTHER HISTORY: Positive Hospitalization and Falls (from dizzness); Negative Autoimmune Disease, Down Syndrome, Autism, Developmental Delay, Shingles, Blood Transfusions, Blood Transfusion Reaction, Anesthesia Reactions, Organ Transplant, Chemotherapy, Radiation Therapy, Hyperbaric Therapy, MRSA, VRSA, Vancomycin-Resistant Enterococci, Human Immunodeficiency Virus (HIV), Chicken Pox, Measles, Mumps, Rubella (Panamanian Measles), Pertussis, Clostridium Difficile, Cancer, Breast Cancer, Cervical Cancer, Colorectal Cancer, Lung Cancer, Ovarian Cancer, Prostate Cancer or Testicular Cancer Family History FAMILY HISTORY: Positive Family Psychiatric Problems and Family Cancer; Negative Family Respiratory Disorders, Family Cardiac Disorders, Family Gastrointestinal Problems, Family Surgery or Family Anesthesia Reaction Surgical History SURGICAL: Positive Section; Negative Cardiac Surgery, Open Heart Surgery, Coronary Artery Bypass Graft, Valve Replacement, Vascular Surgery, Coronary Stent, Cardiac Catheterization, Pacemaker, Angiogram, Auto Implanted Cardiovert Defib, Carotid Endarterectomy, Endocrine Surgery, Thyroidectomy, Ear Surgery, Tympanostomy Tube, Eye Surgery, Nose Surgery, Oral Surgery, Tonsillectomy, Adenoidectomy, Cochlear Implant, Corneal Transplant, Throat Surgery, Abdominal Surgery, Tracheostomy, Gastric Bypass Surgery, Gastrostomy, Bowel Surgery, Nephrectomy, Transurethral Resection, Joint Replacement, Amputation, Open Reduction Internal Fixation, Arthroscopy, Neurologic Surgery, Brain Shunt, Mastectomy, Lumpectomy, Hysterectomy, Tubal Ligation or Organ Transplant Social History SMOKING STATUS: Current some day smoker SECOND HAND EXPOSURE: No Exam Vital Signs Temp Pulse Resp BP Pulse Ox O2 Del Method O2 Flow Rate 97.7 F 128 H 34 H 136/97 H 100 Room Air 10 07/10/24 00:25 07/10/24 00:25 07/10/24 00:25 07/10/24 00:25 07/10/24 00:25 07/10/24 00:25 07/09/24 22:09 Narrative Exam General: Not in any visible or apparent acute distress, sick appearing, minimally interactive HEENT: NC/AT, EOMI, dry mucous membranes, Neck: Supple, No masses, No neck stiffness CVS: S1S2, tachycardic rate and regular rhythm, No M/R/G Lungs: tachypnic, increased respiratory effort, no wheezing rhonchi or rales, CTAB Abd: Soft, diffuse tenderness to palpation, no guarding Ext: No edema, warm well perfused, normal tone and ROM, strength and sensation intact, cap refill less than 2, +2 dp equal bilaterally Skin: Intact, no rashes, no lesions, no erythema Neuro: no gross focal neurological deficits Psych: Appropriate mood and affect Results: Labs 07/09/24 23:30 07/10/24 02:40 Labs: Short CBC 07/09/24 Range/Units 23:30 WBC 20.9 H (3.6-11.0) Thou/mm3 Hgb 13.6 (12.0-16.0) g/dL Hct 41.5 (36.0-46.0) % Plt Count 432 (140-440) Thou/mm3 BMP 07/09/24 23:30 Sodium 132 L Potassium 6.3 H* Chloride 96 L Carbon Dioxide < 10.0 L* BUN 19 Creatinine 2.1 H Glucose 884 H* Calcium 9.2 Liver Function 07/09/24 Range/Units 23:30 Total Bilirubin 0.5 (0.3-1.2) mg/dL AST 26 (0-34) U/L ALT 18 (10-49) U/L Alkaline Phosphatase 132 H (46-116) U/L Albumin 4.5 (3.5-5.0) gm/dL ABG Interpretation ABG results: 07/10/24 00:52 ABG pH 6.91 L* ABG pCO2 8 L* ABG pO2 135 H ABG HCO3 2 L* ABG O2 Saturation 97 ABG Base Excess -30 L Quality Measures Quality Measures none Medications Home Medications and Allergies Home Medications ?Medication ?Instructions ?Recorded ?Confirmed ?Type buprenorphine 12 mg-naloxone 3 mg buccal 05/11/24 History sublingual film Allergies Allergy/AdvReac Type Severity Reaction Status Date / Time codeine Allergy Intermediate Abdominal Verified 05/14/24 10:33 Pain Visit Medications Acetaminophen (Acetaminophen 325 Mg Tablet) 650 mg PO Q4HR PRN PRN Reason: PAIN SCALE 1-3 (mild Stop: 08/09/24 02:36 Dextrose (Dextrose 50%-Water Inj 50 Ml Syringe) 25 ml IV [id number] PRN PRN Reason: Blood Sugar - Low Dextrose (Dextrose 50%-Water Inj 50 Ml Syringe) 25 ml IV [id number] PRN PRN Reason: Blood Sugar - Low Heparin Sodium (Porcine) (Heparin Sod Inj 5000 Unit/Ml Vial) 5,000 unit SC Q8HR TRUDI Stop: 07/24/24 05:59 Magnesium Sulfate (Magnesium Sulfate Ivpb) 2 gm in 50 mls @ 25 mls/hr IV .Q2H PRN PRN Reason: PER DKA PROTOCOL Stop: 08/08/24 22:12 Potassium Phosphate (Pot Phos 15 Mmol In Ns 250 Ml) 15 mmol in 250 mls @ 62.5 mls/hr IV PRN PRN PRN Reason: Phosphate <= 1mg/dL Stop: 08/08/24 22:12 Insulin Human Regular 100 unit (/ IV Miscellaneous Supplies) 100 mls @ 6.727 mls/hr IV .[id number] PRN; Protocol PRN Reason: PER PROTOCOL Stop: 08/09/24 00:17 Last Admin: 07/10/24 01:25 Dose: 0.1 unit/kg/hr, 6.727 mls/hr Lactated Ringer's (Lactated Ringers) 1,000 mls @ 1,000 mls/hr IV .Q1H TRUDI Stop: 08/09/24 00:19 Last Admin: 07/10/24 00:58 Dose: 1,000 mls/hr Potassium Chloride (Kcl Ivpb) 10 meq in 100 mls @ 100 mls/hr IV .Q1H PRN PRN Reason: IF POTASSIUM LESS THAN 3.3 Stop: 08/09/24 02:02 Magnesium Sulfate (Magnesium Sulfate Ivpb) 2 gm in 50 mls @ 25 mls/hr IV .Q2H PRN PRN Reason: PER DKA PROTOCOL Stop: 08/09/24 02:02 Insulin Human Regular 100 unit (/ IV Miscellaneous Supplies) 100 mls @ 6.727 mls/hr IV .[id number] PRN; Protocol PRN Reason: PER PROTOCOL Stop: 08/09/24 02:02 Dextrose/Lactated Ringer's (D5-Lr) 1,000 mls @ 250 mls/hr IV .Q4H PRN PRN Reason: PER PROTOCOL Stop: 08/09/24 02:02 Lactated Ringer's (Lactated Ringers) 1,000 mls @ 250 mls/hr IV .Q4H PRN PRN Reason: PER PROTOCOL Stop: 07/11/24 02:02 Potassium Chloride 20 meq/ (Lactated Ringer's) 1,010 mls @ 250 mls/hr IV .Q4H3M PRN PRN Reason: K LEVEL 3.3 TO 5.3mM/L Stop: 08/09/24 02:02 Potassium Chloride 40 meq/ (Lactated Ringer's) 1,020 mls @ 250 mls/hr IV .Q4H5M PRN PRN Reason: K LEVEL < 3.3 mM/L Stop: 08/09/24 02:02 Potassium Chloride 40 meq/ (Dextrose/Lactated Ringer's) 1,020 mls @ 250 mls/hr IV .Q4H5M PRN PRN Reason: K LEVEL < 3.3mM/L Stop: 08/09/24 02:02 Potassium Cl/Dextrose/Lact Ringer's (Kcl 20 Meq/L In D5-Lr) 20 meq in 1,000 mls @ 250 mls/hr IV .Q4H PRN PRN Reason: K LEVEL 3.3 TO 5.3 mM/L Stop: 08/09/24 02:02 Potassium Chloride (Kcl Ivpb) 10 meq in 100 mls @ 50 mls/hr IV PRN PRN PRN Reason: K LEVEL 3.3 to 5.3 & BG > 200 Stop: 08/09/24 02:02 Potassium Phosphate (Pot Phos 15 Mmol In Ns 250 Ml) 15 mmol in 250 mls @ 62.5 mls/hr IV PRN PRN PRN Reason: Phosphate <= 1mg/dL Stop: 08/09/24 02:02 Sodium Phosphate 15 mmol/ (Sodium Chloride) 255 mls @ 62.5 mls/hr IV .Q4H5M PRN PRN Reason: Phosphate <= 1mg/dL and K> than 5.3 Stop: 08/09/24 02:02 Ondansetron HCl (Ondansetron Inj 2 Mg/Ml Inj 2 Ml) 4 mg IV Q6HR PRN PRN Reason: NAUSEA OR VOMITING Stop: 08/09/24 02:36 Pantoprazole Sodium (Pantoprazole 40 Mg Tablet) 40 mg PO QDAY [facility] Stop: 08/09/24 08:59 Pharmacy Consult (Pharmacy Renal Dose Adjustment 1 Ea) 1 each XX QDAY [facility] Stop: 08/09/24 08:59 Sodium Bicarbonate (Sodium Bicarb Inj 8.4% Syr 50 Ml Syringe) 50 ml IV PRN PRN PRN Reason: For ph <= to 7.0 Stop: 08/08/24 22:12 Last Admin: 07/10/24 01:24 Dose: 50 ml Sodium Bicarbonate (Sodium Bicarb Inj 8.4% Syr 50 Ml Syringe) 50 ml IV PRN PRN PRN Reason: For ph <= to 7.0 Stop: 08/09/24 02:02 Discontinued Medications Lactated Ringer's (Lactated Ringers) 1,000 mls @ 1,000 mls/hr IV .Q1H ONE Stop: 07/09/24 23:18 Last Admin: 07/09/24 22:37 Dose: 1,000 mls/hr Acetaminophen (Ofirmev Inj) 1,000 mg in 100 mls @ 250 mls/hr IV X1 ONE Stop: 07/09/24 23:35 Last Admin: 07/10/24 01:33 Dose: 250 mls/hr Morphine Sulfate (Morphine Sulf Inj 10 Mg/Ml Vial) 2 mg IVP X1 ONE Stop: 07/09/24 23:13 Last Admin: 07/10/24 00:45 Dose: 2 mg Ondansetron HCl (Ondansetron Inj 2 Mg/Ml Inj 2 Ml) 4 mg IV X1 ONE; Protocol Stop: 07/09/24 23:13 Last Admin: 07/10/24 00:51 Dose: 4 mg Sodium Bicarbonate (Sodium Bicarb Inj 8.4% 1 Meq/Ml 50 Ml Vial) 50 meq IV X1 ONE Stop: 07/10/24 01:08 Last Admin: 07/10/24 01:33 Dose: Not Given Assessment & Plan Plan Assessment & Plan: Neurological Stable, AAO x 3 Cardiology #Tachycardia: Pulse 128 Mostly likely secondary to acidotic state. Will resolve once DKA resolves Pulmonary Stable, Saturating 100% in ambient air Gastrointestinal #Nausea #Vomiting #Abdominal pain In the setting of DKA -GI PPX: 40 mg Pantoprazole QD -Ondancetron PRN -Keep NPO -IVF resuscitation #Isolated transaminitis Elevated alkline phosphatase -Continue to trend with daily CMP Renal/Genitourinary #Anion Gap Metabolic acidosis: Anion Gap 26, ABG 6.91/pCO2 8/HCO3 2, HCO3 <10 ABG:? pH 6.97, PCO2 11, P O2 129, bicarb 3 #Lactic acidiosis: 4.7 #LEONA: Creatinine: 2.1 most likely prerenal due to dehydration. Continue IV fluids. #Hyponatremia: Sodium 132, most likely pseudohyponatremia, Corrected sodium:145 #Hyperphosphatemia: Phosphate 5.6 in setting of DKA #Hyperkalemia: Potassium: 6.3 most likely due to extracellular shift, expected to resolve with DKA resolution Endocrine #Type 1 DM #Diabetic Ketoacidosis: Mostly likely due to medication noncompliance. Blood Glucose: 884, Anion Gap Metabolic acidosis: Anion Gap 26, ABG 6.91/pCO2 8/HCO3 2 Beta Hydroxybutyrate> 5.6 ? IV insulin gtt. per DKA protocol ? IV fluids per DKA protocol ? Follow-up renal panel every 4 hours ? Follow-up magnesium and Phos every 4 hours Hematology #Leuckocytosis-? WBC: 20.9, most likely reactive secondary to DKA state Infectious Disease U/A: Pending Skin - no acute issues, no evidence of skin breakdown Health Maintenance Fluids Electrolytes Nutrition: IVF per DKA protocol, NPO Code Status: Full Code DVT Prophylaxis: Heparin 5000 units SC q12hrs GI Prophylaxis: Pantoprazole Disposition:? Patient requires inpatient ICU admission for DKA requiring IV fluids and IV insulin. Patient's case was discussed with attending physician Dr. Kam Ochoa M.D. PGY-3 Attending Provider Attestation/Addendum I have examined the patient, reviewed labs and imaging findings, discussed the case with the resident(s), and reviewed entered orders. I agree with the plan of care as outlined in this note, with these additional summaries/recommendations: 29-year-old female with past medical history of type I DM, substance use disorder presents to the ED with chief complaint of abdominal pain, nausea vomiting. Patient found to have DKA with blood glucose greater than 800 and gap greater than 20. She reports recent noncompliance with medications. ABG showed pH 6.9 so patient given pushes of bicarb and started on DKA protocol. Repeat labs showed improvement but elevated lactic acid, CT chest abdomen pelvis pending and cultures sent for sepsis and started on broad-spectrum antibiotics. Gaurang Humphrey MD
[2024-07-10 03:05] LABS: Lactic Acid, 3 HR 8.1 mMol/L (0.4-2.0)
[2024-07-10 03:17] LABS: Collection Type, Urine Clean Catch
[2024-07-10 03:22] LABS: Albumin, Serum 4.4 gm/dL (3.5-5.0); Anion Gap 30 (7-16); BUN/Creatinine Ratio 10 Ratio (12-20); Blood Urea Nitrogen 21 mg/dL (9-23); Calcium 8.7 mg/dL (8.3-10.6); Calcium (Corrected) 8.7 mg/dL (8.5-10.1); Chloride 98 mMol/L (98-107); Creatinine (Component) 2.1 mg/dL (0.6-1.3); Estimated Creatinine Clearance 40.6 mL/min (>60); Osmolality,Calculated 319 (275-295); Phosphorous 7.8 mg/dL (2.4-5.1); Potassium 5.6 mMol/L (3.4-5.1); Sodium 138 mMol/L (136-145); eGFR 32 See Note
[2024-07-10 03:24] LABS: Carbon Dioxide < 10.0 mMol/L (20.0-31.0); Glucose 833 mg/dL (74-106)
[2024-07-10 03:28] LABS: Bilirubin,Urine Negative (Negative); Blood,Urine Negative (Negative); Clarity,Urine Clear (Clear/Hazy); Color,Urine Colorless (Lt Yel-Yel); Glucose, Urine 4+ (Negative); Ketones,Urine 4+ (Negative); Leukocyte Esterase,Urine Negative (Negative); Nitrite,Urine Negative (Negative); PH,Urine 5.5 (5.0-7.0); Protein,Urine Trace (Neg - Trace); Specific Gravity,Urine 1.026 (1.001-1.035); Urobilinogen,Urine Negative mg/dL (0.0-1.0)
[2024-07-10 03:30] LABS: Amphetamine/Methamp Scrn,U Negative (Negative); Barbiturate Screen,Urine Negative (Negative); Benzodiazepines Screen,Urine Negative (Negative); Benzoylecgonine Screen, Ur Positive (Negative); Fentanyl Screen,Urine Negative (Negative); Opiate Screen,Urine Positive (Negative); THC Screen,Urine Negative (Negative)
[2024-07-10 03:41] LABS: Base Excess -24 (-3-3); HCO3 3 mEq/L (20-26); Inspired Oxygen, FIO2 21 %; O2 Saturation 99 % (91-98); PCO2 9 mmHg (32.0-48.0); PO2 129 mmHg (83-108)
[2024-07-10 03:42] LABS: Allen Test Performed/OK; Puncture Site Right Radial
[2024-07-10 03:42] LABS: Granular Casts,Urine 2 /hpf (0-1)
[2024-07-10 03:44] LABS: RBC,Urine 2 /hpf (0-3); Squamous Epithelial Cell,Urine 15 /hpf (0-5); WBC,Urine 5 /hpf (0-5)
[2024-07-10 03:45] LABS: Bacteria,Urine Rare
[2024-07-10 03:52] LABS: Beta HCG,Quantitative < 1 mIU/mL (<5.0)
[2024-07-10] MEDS: RINGERS LACTATED 1000 ML 1,000 ML 250 ML IV (04:09)
[2024-07-10] MEDS: RINGERS LACTATED 1000 ML 1,000 ML 999 ML IV (04:15)
[2024-07-10] MEDS: PIPER/TAZO INJ 3.375 GM in SODIUM CHLORIDE 0.9% (Popper) 50 ML IV (07:01)
[2024-07-10 07:16] LABS: Base Excess, Venous -16 (-3-3); O2 Saturation, Venous 58 % (96-97); PCO2, Venous 30 mmHg (36-56); PO2, Venous 33 mmHg (15-58); pH, Venous 7.18 (7.33-7.66)
[2024-07-10 07:41] LABS: Lactate (Lactic Acid) 6.1 mMol/L (0.4-2.0)
[2024-07-10 07:51] LABS: Albumin, Serum 4.4 gm/dL (3.5-5.0); Anion Gap 28 (7-16); BUN/Creatinine Ratio 11 Ratio (12-20); Blood Urea Nitrogen 20 mg/dL (9-23); Calcium 9.3 mg/dL (8.3-10.6); Calcium (Corrected) 9.3 mg/dL (8.5-10.1); Chloride 106 mMol/L (98-107); Creatinine (Component) 1.8 mg/dL (0.6-1.3); Estimated Creatinine Clearance 47.3 mL/min (>60); Magnesium 2.2 mg/dL (1.6-2.6); Osmolality,Calculated 310 (275-295); Phosphorous 3.3 mg/dL (2.4-5.1); Potassium 4.3 mMol/L (3.4-5.1); Sodium 145 mMol/L (136-145); eGFR 38 See Note
[2024-07-10 07:55] LABS: Carbon Dioxide 11.4 mMol/L (20.0-31.0); Glucose 432 mg/dL (74-106)
[2024-07-10 09:02] LABS: Basophils # (Auto) 0.1 Thou/mm3 (0.0-0.2); Basophils % (Auto) 0 % (0-2.5); Eosinophils % (Auto) 0 % (0-10); Hematocrit 35.6 % (36.0-46.0); Hemoglobin 12.2 g/dL (12.0-16.0); Immature Granulocytes % (Auto) 2 % (0-0); Immature Granulocytes Auto 0.45 Thou/mm3 (0.00-0.00); Lymphocytes # (Auto) 1.6 Thou/mm3 (1.0-4.8); Lymphocytes % (Auto) 6 % (10-50); Mean Corpuscular HGB Conc 34.3 g/dl (31.0-37.0); Mean Corpuscular Hemoglobin 28.6 pg (25.0-35.0); Mean Corpuscular Volume 83 fL (80-100); Monocytes # (Auto) 0.9 Thou/mm3 (0.0-0.8); Monocytes % (Auto) 3 % (0-12); Neutrophils # (Auto) 25.7 Thou/mm3 (1.8-7.7); Neutrophils % (Auto) 90 % (37-80); Nucleated Red Blood Cell % 0 /100 WBC (0); Platelet Count 170 Thou/mm3 (140-440); RDW Standard Deviation 42.5 fL (36.4-46.3); Red Blood Count 4.27 Miln/mm3 (4.00-5.20); White Blood Count 28.7 Thou/mm3 (3.6-11.0)
[2024-07-10] MEDS: ACETAMINOPHEN 325 MG TABLET 650 MG PO (09:28)
[2024-07-10] MEDS: PANTOPRAZOLE 40 MG TABLET PO (09:28)
[2024-07-10] MEDS: HEPARIN SOD INJ 5000 UNIT/ML VIAL SC (09:29)
[2024-07-10] MEDS: KCL 20 mEq/L in D5-LR 20 MEQ/1,000 ML BAG 250 MEQ IV (09:30)
[2024-07-10 09:36] LABS: Glucose Estimated Average 355 mg/dL (80-131); Hemoglobin A1C > 14.0 % Hgb (4.8-6.0)
[2024-07-10 10:10] LABS: Base Excess, Venous -8 (-3-3); Lactate (Lactic Acid) 2.8 mMol/L (0.4-2.0); O2 Saturation, Venous 98 % (96-97); PCO2, Venous 24 mmHg (36-56); PO2, Venous 98 mmHg (15-58); pH, Venous 7.41 (7.33-7.66)
[2024-07-10 10:17] LABS: Reflex Lactate? Y
--- NOTE | 2024-07-10 10:20 | PC.CC ---
Patient is a 29 year-old female who presents to the hospital for DKA. Martha GUDINO made [id number] contact with patient. ASW introduced self, role, and reason for visit. Patient appeared alert and oriented to self, location, and situation. Patient reports she is currently living with her significant other, Jere Schreiber . Per patient, in the event she is unable to make her own medical decisions her significant other would be her medical decision maker. At home the patient ambulates independently and is able to complete her own ADLs with not assistance. Patient receives primary care with [facility] and uses [facility] for prescription medications. Upon discharge the patient plans to return back home with her significant other. rn social services to follow up with any discharge needs.
[2024-07-10 10:30] LABS: Albumin, Serum 3.8 gm/dL (3.5-5.0); Anion Gap 17 (7-16); BUN/Creatinine Ratio 13 Ratio (12-20); Blood Urea Nitrogen 18 mg/dL (9-23); Calcium 8.7 mg/dL (8.3-10.6); Calcium (Corrected) 8.9 mg/dL (8.5-10.1); Carbon Dioxide 18.1 mMol/L (20.0-31.0); Chloride 106 mMol/L (98-107); Creatinine (Component) 1.4 mg/dL (0.6-1.3); Estimated Creatinine Clearance 60.8 mL/min (>60); Glucose 161 mg/dL (74-106); Magnesium 1.9 mg/dL (1.6-2.6); Osmolality,Calculated 286 (275-295); Phosphorous 1.8 mg/dL (2.4-5.1); Sodium 141 mMol/L (136-145); eGFR 52 See Note
--- NOTE | 2024-07-10 11:41 | PC.NURSE ---
@0700 Assumed care of patient. Patient appears to be sleeping, awakens when called by name, responds by speaking. Patient alert/oriented x4. Patient denies pain at this time. Call light within reach.
--- NOTE | 2024-07-10 11:47 | PC.NURSE ---
Patient at this time remains sleeping, per patient did not get any rest last night. Call light remains within reach.
--- NOTE | 2024-07-10 12:18 | ESPR_ITS ---
<Statement entered by Royer Cohn MD - 07/11/24 08:41> agree with above. Cumulative time spent in management of patient is 45 min excluding procedures Documentation for date of: 07/10/24 Subjective Subjective Interval history: Ms. Kiana Main is a 29 year old lady with a past medical history significant for Type 1 DM, hypertension who was brought to the ED on 07/09/2024 due to altered mental status. Due to the patient's altered mentation, history was obtained through chart review. EMS records state that the patient apparently had not taker her insulin within the last 3-4 days. EMS also noted that the patient had a fruity odor to her breath along with symptoms of nausea, vomiting and SOB, myalgias, weakness and abdominal pain. She was initially confused, however her mentation improved whilst en route to the ED. On arrival to the ED the patient's vitals are significant for a blood pressure of 143/82, pulse 123, RR 26, temp 99.0 ?F, 99% on 10 L/min via oxy mask. Initial lab studies were significant for a leukocytosis of 20.9. CHEM panel was significant for a sodium of 132, potassium of 6.3, chloride 96, CO2 less than 10, a gap 26 and a creatinine of 2.1. Glucose 884. Serum osmolality of 310. Lactic acid 4.7 and phosphorus 5.6. LFTs with a mildly elevated alk phos of 132. BHB of 5.6. ABG showed a markedly low pH of 6.91, pCO2 is low at 8, HCO3 is low at 2. Patient was found to be in DKA and was subsequently admitted to the ICU for treatment and management. 07/10/2024: Patient seen in the ED. No acute complaints. Requesting water. Last use of cocaine was 4 days ago. Lactic acid improving, anion gap and glucose remain elevated. Will continue IV fluids, insulin ggt, and repleting electrolytes as needed. Exam Vital Signs Temp Pulse Resp BP Pulse Ox O2 Del Method O2 Flow Rate 98.4 F 101 H 18 103/61 100 Room Air 10 07/10/24 11:22 07/10/24 11:22 07/10/24 11:22 07/10/24 11:22 07/10/24 11:22 07/10/24 11:22 07/09/24 22:09 Narrative Exam Constitutional: NAD. Lethargic, answers questions appropriately. HEENT: NCAT. Vision grossly intact. Mucous membranes dry. Respiratory: CTAB bilaterally. Cardiac: sinus tachycardia. Abdomen: Soft, non-distended, non-tender. MSK: No B/L LE edema. Skin: Warm, dry, intact. No obvious lesions. Neuro: Motor and sensation grossly intact. Objective Labs 07/10/24 08:30 07/10/24 09:50 Labs: Laboratory Results - last 24 hr 07/09/24 07/10/24 07/10/24 23:30 00:52 02:40 WBC 20.9 H RBC 4.81 Hgb 13.6 Hct 41.5 MCV 86 MCH 28.3 MCHC 32.8 RDW Std Deviation 45.0 Plt Count 432 Neut % (Auto) 90 H Lymph % (Auto) 6 L Desha % (Auto) 2 Eos % (Auto) 0 Baso % (Auto) 1 Neut # (Auto) 18.8 H Lymph # (Auto) 1.2 Desha # (Auto) 0.5 Eos # (Auto) 0.0 Baso # (Auto) 0.1 Immature Gran # (Auto) 0.22 H Absolute Nucleated RBC 0.00 Immature Gran % 1 H Nucleated RBC % 0 Puncture Site Right Radial ABG pH 6.91 L* ABG pCO2 8 L* ABG pO2 135 H ABG HCO3 2 L* ABG O2 Saturation 97 ABG Base Excess -30 L VBG pH VBG pCO2 VBG pO2 VBG O2 Sat (Marcelo) VBG Base Excess FiO2 21 Sodium 132 L 138 Potassium 6.3 H* 5.6 H D Chloride 96 L 98 Carbon Dioxide < 10.0 L* < 10.0 L* Anion Gap 26 H 30 H BUN 19 21 Creatinine 2.1 H 2.1 H Estim Creat Clear Calc Not Performed. 40.6 L eGFR 32 L 32 L BUN/Creatinine Ratio 9 L 10 L Glucose 884 H* 833 H* D Estimated Ave Glu mg/dL Hemoglobin A1c Calculated Osmolality 310 H 319 H Lactic Acid 4.7 H* 8.1 H* Calcium 9.2 8.7 Corrected Calcium 9.2 8.7 Phosphorus 5.6 H 7.8 H Magnesium 2.4 Total Bilirubin 0.5 AST 26 ALT 18 Alkaline Phosphatase 132 H Total Protein 7.4 Albumin 4.5 4.4 Globulin 2.9 Albumin/Globulin Ratio 1.6 Beta-Hydroxybutyrate/Acetoacetate 5.6 H Beta HCG, Quant < 1 Ur Collection Type Urine Color Urine Clarity Urine pH Ur Specific Shade Urine Protein Urine Glucose (UA) Urine Ketones Urine Blood Urine Nitrite Urine Bilirubin Urine Urobilinogen (Auto) Ur Leukocyte Esterase Urine RBC Urine WBC Ur Squamous Epith Cells Urine Bacteria Granular Casts Urine Opiates Screen Urine Fentanyl Screen Ur Barbiturates Screen U Amphetamin/Meth Scrn U Benzodiazepines Scrn U Cocaine Metab Screen U Marijuana (THC) Screen Ethyl Alcohol < 3.0 07/10/24 07/10/24 07/10/24 03:00 03:36 06:50 WBC RBC Hgb Hct MCV MCH MCHC RDW Std Deviation Plt Count Neut % (Auto) Lymph % (Auto) Desha % (Auto) Eos % (Auto) Baso % (Auto) Neut # (Auto) Lymph # (Auto) Desha # (Auto) Eos # (Auto) Baso # (Auto) Immature Gran # (Auto) Absolute Nucleated RBC Immature Gran % Nucleated RBC % Puncture Site Right Radial ABG pH 7.10 L* D ABG pCO2 9 L* ABG pO2 129 H ABG HCO3 3 L* ABG O2 Saturation 99 H ABG Base Excess -24 L VBG pH 7.18 L VBG pCO2 30 L VBG pO2 33 VBG O2 Sat (Marcelo) 58 L VBG Base Excess -16 L FiO2 21 Sodium 145 Potassium 4.3 D Chloride 106 Carbon Dioxide 11.4 L* Anion Gap 28 H BUN 20 Creatinine 1.8 H Estim Creat Clear Calc 47.3 L eGFR 38 L BUN/Creatinine Ratio 11 L Glucose 432 H* D Estimated Ave Glu mg/dL Hemoglobin A1c Calculated Osmolality 310 H Lactic Acid 6.1 H* Calcium 9.3 Corrected Calcium 9.3 Phosphorus 3.3 Magnesium 2.2 Total Bilirubin AST ALT Alkaline Phosphatase Total Protein Albumin 4.4 Globulin Albumin/Globulin Ratio Beta-Hydroxybutyrate/Acetoacetate Beta HCG, Quant Ur Collection Type Clean Catch Urine Color Colorless A Urine Clarity Clear Urine pH 5.5 Ur Specific Shade 1.026 Urine Protein Trace Urine Glucose (UA) 4+ A Urine Ketones 4+ A Urine Blood Negative Urine Nitrite Negative Urine Bilirubin Negative Urine Urobilinogen (Auto) Negative Ur Leukocyte Esterase Negative Urine RBC 2 Urine WBC 5 Ur Squamous Epith Cells 15 H Urine Bacteria Rare Granular Casts 2 H Urine Opiates Screen Positive A Urine Fentanyl Screen Negative Ur Barbiturates Screen Negative U Amphetamin/Meth Scrn Negative U Benzodiazepines Scrn Negative U Cocaine Metab Screen Positive A U Marijuana (THC) Screen Negative Ethyl Alcohol 07/10/24 07/10/24 08:30 09:50 WBC 28.7 H D RBC 4.27 Hgb 12.2 Hct 35.6 L MCV 83 MCH 28.6 MCHC 34.3 RDW Std Deviation 42.5 Plt Count 170 D Neut % (Auto) 90 H Lymph % (Auto) 6 L Desha % (Auto) 3 Eos % (Auto) 0 Baso % (Auto) 0 Neut # (Auto) 25.7 H Lymph # (Auto) 1.6 Desha # (Auto) 0.9 H Eos # (Auto) 0.0 Baso # (Auto) 0.1 Immature Gran # (Auto) 0.45 H Absolute Nucleated RBC 0.00 Immature Gran % 2 H Nucleated RBC % 0 Puncture Site ABG pH ABG pCO2 ABG pO2 ABG HCO3 ABG O2 Saturation ABG Base Excess VBG pH 7.41 VBG pCO2 24 L VBG pO2 98 H D VBG O2 Sat (Marcelo) 98 H VBG Base Excess -8 L FiO2 Sodium 141 Potassium 4.0 Chloride 106 Carbon Dioxide 18.1 L Anion Gap 17 H BUN 18 Creatinine 1.4 H Estim Creat Clear Calc 60.8 L eGFR 52 L BUN/Creatinine Ratio 13 Glucose [address] Glu mg/dL 355 H Hemoglobin A1c > 14.0 H Calculated Osmolality 286 Lactic Acid 2.8 H Calcium 8.7 Corrected Calcium 8.9 Phosphorus 1.8 L Magnesium 1.9 Total Bilirubin AST ALT Alkaline Phosphatase Total Protein Albumin 3.8 D Globulin Albumin/Globulin Ratio Beta-Hydroxybutyrate/Acetoacetate Beta HCG, Quant Ur Collection Type Urine Color Urine Clarity Urine pH Ur Specific Shade Urine Protein Urine Glucose (UA) Urine Ketones Urine Blood Urine Nitrite Urine Bilirubin Urine Urobilinogen (Auto) Ur Leukocyte Esterase Urine RBC Urine WBC Ur Squamous Epith Cells Urine Bacteria Granular Casts Urine Opiates Screen Urine Fentanyl Screen Ur Barbiturates Screen U Amphetamin/Meth Scrn U Benzodiazepines Scrn U Cocaine Metab Screen U Marijuana (THC) Screen Ethyl Alcohol ABG Interpretation ABG results: 07/10/24 07/10/24 07/10/24 00:52 03:36 06:50 ABG pH 6.91 L* 7.10 L* D ABG pCO2 8 L* 9 L* ABG pO2 135 H 129 H ABG HCO3 2 L* 3 L* ABG O2 Saturation 97 99 H ABG Base Excess -30 L -24 L VBG pH 7.18 L VBG pCO2 30 L VBG pO2 33 VBG Base Excess -16 L 07/10/24 09:50 ABG pH ABG pCO2 ABG pO2 ABG HCO3 ABG O2 Saturation ABG Base Excess VBG pH 7.41 VBG pCO2 24 L VBG pO2 98 H D VBG Base Excess -8 L Quality Measures Quality Measures none Assessment & Plan Assessment Current Active Medications: Generic Name Dose Route Start Last Admin Trade Name Freq PRN Reason Stop Dose Admin Acetaminophen 650 mg 07/10/24 02:37 Acetaminophen 325 Mg Tablet PO 08/09/24 02:36 Q4HR PRN PAIN SCALE 1-3 (mild Dextrose 25 ml 07/09/24 22:13 Dextrose 50%-Water Inj 50 Ml Syringe IV [id number] PRN Blood Sugar - Low Dextrose 25 ml 07/10/24 02:03 Dextrose 50%-Water Inj 50 Ml Syringe IV [id number] PRN Blood Sugar - Low Heparin Sodium (Porcine) 5,000 unit 07/10/24 09:00 07/10/24 09:29 Heparin Sod Inj 5000 Unit/Ml Vial SC 07/24/24 08:59 5,000 unit Q12HR TRUDI Administration Magnesium Sulfate 2 gm in 50 mls @ 25 mls/hr 07/09/24 22:13 Magnesium Sulfate Ivpb IV 08/08/24 22:12 .Q2H PRN PER DKA PROTOCOL Potassium Phosphate 15 mmol in 250 mls @ 62.5 mls/hr 07/09/24 22:13 Pot Phos 15 Mmol In Ns 250 Ml IV 08/08/24 22:12 PRN PRN Phosphate <= 1mg/dL Insulin Human Regular 100 unit 100 mls @ 6.727 mls/hr 07/10/24 00:18 07/10/24 11:28 / IV Miscellaneous Supplies IV 08/09/24 00:17 0.05 unit/kg/hr .[id number] PRN 3.364 mls/hr PER PROTOCOL Titration Protocol 0.1 UNIT/KG/HR Potassium Chloride 10 meq in 100 mls @ 100 mls/hr 07/10/24 02:03 Kcl Ivpb IV 08/09/24 02:02 .Q1H PRN IF POTASSIUM LESS THAN 3.3 Magnesium Sulfate 2 gm in 50 mls @ 25 mls/hr 07/10/24 02:03 Magnesium Sulfate Ivpb IV 08/09/24 02:02 .Q2H PRN PER DKA PROTOCOL Dextrose/Lactated Ringer's 1,000 mls @ 250 mls/hr 07/10/24 02:03 D5-Lr IV 08/09/24 02:02 .Q4H PRN PER PROTOCOL Lactated Ringer's 1,000 mls @ 250 mls/hr 07/10/24 02:03 07/10/24 08:39 Lactated Ringers IV 07/11/24 02:02 Infused .Q4H PRN Infusion PER PROTOCOL Potassium Chloride 20 meq/ 1,010 mls @ 250 mls/hr 07/10/24 02:03 Lactated Ringer's IV 08/09/24 02:02 .Q4H3M PRN K LEVEL 3.3 TO 5.3mM/L Potassium Chloride 40 meq/ 1,020 mls @ 250 mls/hr 07/10/24 02:03 Lactated Ringer's IV 08/09/24 02:02 .Q4H5M PRN K LEVEL < 3.3 mM/L Potassium Chloride 40 meq/ 1,020 mls @ 250 mls/hr 07/10/24 02:03 Dextrose/Lactated Ringer's IV 08/09/24 02:02 .Q4H5M PRN K LEVEL < 3.3mM/L Potassium Cl/Dextrose/Lact Ringer's 20 meq in 1,000 mls @ 250 mls/hr 07/10/24 02:03 07/10/24 09:30 Kcl 20 Meq/L In D5-Lr IV 08/09/24 02:02 250 mls/hr .Q4H PRN Administration K LEVEL 3.3 TO 5.3 mM/L Potassium Chloride 10 meq in 100 mls @ 50 mls/hr 07/10/24 02:03 Kcl Ivpb IV 08/09/24 02:02 PRN PRN K LEVEL 3.3 to 5.3 & BG > 200 Potassium Phosphate 15 mmol in 250 mls @ 62.5 mls/hr 07/10/24 02:03 Pot Phos 15 Mmol In Ns 250 Ml IV 08/09/24 02:02 PRN PRN Phosphate <= 1mg/dL Sodium Phosphate 15 mmol/ 255 mls @ 62.5 mls/hr 07/10/24 02:03 Sodium Chloride IV 08/09/24 02:02 .Q4H5M PRN Phosphate <= 1mg/dL and K> than 5.3 Piperacillin Sod/Tazobactam 50 mls @ 12.5 mls/hr 07/10/24 14:00 Sod 3.375 gm/ Sodium Chloride IV 07/17/24 13:[address] [facility] Protocol Levothyroxine Sodium 88 mcg 07/10/24 06:00 07/10/24 08:38 Levothyroxine Sodium 88 Mcg Tablet PO 08/09/24 05:59 Not Given [facility] Ondansetron HCl 4 mg 07/10/24 02:37 Ondansetron Inj 2 Mg/Ml Inj 2 Ml IV 08/09/24 02:36 Q6HR PRN NAUSEA OR VOMITING Pantoprazole Sodium 40 mg 07/10/24 09:00 07/10/24 09:28 Pantoprazole 40 Mg Tablet PO 08/09/24 08:59 40 mg QDAY TRUDI Administration Pharmacy Consult 1 each 07/10/24 09:00 Pharmacy Renal Dose Adjustment 1 Ea XX 08/09/24 08:59 QDAY PRN PROTOCOL Sodium Bicarbonate 50 ml 07/09/24 22:13 07/10/24 01:24 Sodium Bicarb Inj 8.4% Syr 50 Ml Syringe IV 08/08/24 22:12 50 ml PRN PRN Administration For ph <= to 7.0 Sodium Bicarbonate 50 ml 07/10/24 02:03 Sodium Bicarb Inj 8.4% Syr 50 Ml Syringe IV 08/09/24 02:02 PRN PRN For ph <= to 7.0 Plan Patient is a 29 year old female admitted to the ICU for DKA. 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 RESPIRATORY No acute problems RENAL AGMA due to lactic acid, BHB from DKA, improving LEONA, pre-renal Was given amp of HCO3 x 1 for severe acidosis. - IVF - Treat underlying DKA - VBG, renal panel, lactic acid Q4H - Replete electrolytes GI Abdominal pain Differential includes DKA, less suspicion for underlying infection. - CT abd/p to screen for intra-abdominal infection ENDO DKA, Uncontrolled DM A1c > 14 Elevated BHB, hyperglycemia in the 800s on admission. - Insulin ggt until anion gap closes x 2 and HCO3 > 20, then will calculate insulin requirements and give as basal bolus with 2 hour overlap with insulin ggt with food - Blood sugar check q1H #Hypothyroidism - Continue home levothyroxine HEME Leukocytosis ID SIRS positive, sepsis alert called with unclear etiology. CT ab/p ordered. CXR and UA not suggestive of infection. Tachycardia, leukocytosis likely due to underlying DKA. - Follow up blood and urine culture - Antibiotics discontinued Health Maintenance Disposition: Admit to ICU for DKA Diet and fluids: NPO DVT prophylaxis: heparin GI prophylaxis: protonix Lines: 2 PIV CODE STATUS: FULL I have reviewed and discussed the patient's care with my attending, Dr. Cohn, Joyce Guallpa MD PGY-3
[2024-07-10 13:07] LABS: Reflex Lactate? Y
[2024-07-10 13:15] LABS: Lactate (Lactic Acid) 2.3 mMol/L (0.4-2.0)
[2024-07-10 13:16] LABS: Base Excess, Venous -9 (-3-3); O2 Saturation, Venous 92 % (96-97); PCO2, Venous 19 mmHg (36-56); PO2, Venous 59 mmHg (15-58); pH, Venous 7.45 (7.33-7.66)
[2024-07-10] MEDS: HYDROcodone/APAP 5/325 TABLET 1 TAB PO (13:48)
[2024-07-10] MEDS: SOD PHOS ADDITIVE 15 MMOL in SODIUM CHLORIDE 0.9% 250 ML 250 ML 62.5 MMOL IV (14:40)
[2024-07-10 14:44] LABS: Albumin, Serum 3.5 gm/dL (3.5-5.0); Anion Gap 15 (7-16); BUN/Creatinine Ratio 9 Ratio (12-20); Blood Urea Nitrogen 12 mg/dL (9-23); Calcium 8.2 mg/dL (8.3-10.6); Calcium (Corrected) 8.6 mg/dL (8.5-10.1); Carbon Dioxide 16.9 mMol/L (20.0-31.0); Chloride 105 mMol/L (98-107); Creatinine (Component) 1.3 mg/dL (0.6-1.3); Estimated Creatinine Clearance 63.3 mL/min (>60); Glucose 225 mg/dL (74-106); Magnesium 1.6 mg/dL (1.6-2.6); Osmolality,Calculated 280 (275-295); Phosphorous 1.8 mg/dL (2.4-5.1); Potassium 4.5 mMol/L (3.4-5.1); Sodium 137 mMol/L (136-145); eGFR 56 See Note
[2024-07-10 16:11] LABS: Reflex Lactate? Y
[2024-07-10] MEDS: DEXTROSE 5%-LACTATED RINGERS 1,000 ML 250 ML IV (16:18)
[2024-07-10 17:33] LABS: Lactate (Lactic Acid) 2.4 mMol/L (0.4-2.0)
[2024-07-10 17:34] LABS: Base Excess, Venous -5 (-3-3); O2 Saturation, Venous 101 % (96-97); PCO2, Venous 21 mmHg (36-56); PO2, Venous 210 mmHg (15-58)
[2024-07-10 18:09] LABS: Albumin, Serum 3.4 gm/dL (3.5-5.0); Anion Gap 13 (7-16); BUN/Creatinine Ratio 8 Ratio (12-20); Blood Urea Nitrogen 10 mg/dL (9-23); Calcium 8.4 mg/dL (8.3-10.6); Calcium (Corrected) 8.9 mg/dL (8.5-10.1); Carbon Dioxide 16.7 mMol/L (20.0-31.0); Chloride 103 mMol/L (98-107); Creatinine (Component) 1.2 mg/dL (0.6-1.3); Estimated Creatinine Clearance 68.5 mL/min (>60); Glucose 142 mg/dL (74-106); Magnesium 1.7 mg/dL (1.6-2.6); Osmolality,Calculated 267 (275-295); Phosphorous 2.7 mg/dL (2.4-5.1); Potassium 3.9 mMol/L (3.4-5.1); Sodium 133 mMol/L (136-145); eGFR > 60 See Note
--- NOTE | 2024-07-10 18:15 | ESDS_ITS ---
<Statement entered by Royer Cohn MD - 07/11/24 08:35> agree with above cumulative time spent in management of patient is 45 min excluding procedures Planned Discharge Date 07/10/24 DS: Providers Provider Date of admission: 07/10/24 02:09 Primary care physician: Physician No Primary/Family Admitting Provider: Gaurang Humphrey MD Attending Provider on Admission: Royer Cohn MD Consults: 07/10/24 02:04 Referral Registered Dietitian Routine Comment: Attending Provider on DC: Joyce Guallpa MD Discharging Provider: Joyce Guallpa MD DS: Diagnosis Problem List Completed Was Problem List Reviewed/Reconciled?: Yes Hospital Course Hospital Course Hospital course: Ms. Kiana Main is a 29 year old lady with a past medical history significant for Type 1 DM, hypertension, cocaine use disorder, who was brought to the ED on 07/09/2024 due to altered mental status. Due to the patient's altered mentation, history was obtained through chart review. EMS records state that the patient apparently had not taker her insulin within the last 3-4 days. EMS also noted that the patient had a fruity odor to her breath along with symptoms of nausea, vomiting and SOB, myalgias, weakness and abdominal pain. Last use of cocaine was 4 days ago. She was initially confused, however her mentation improved whilst en route to the ED. In the ER, patient was found to be in DKA with her blood sugar as high as 884. She also had an acute kidney injury and severe lactic acidosis. She was admitted to the ICU and started on insulin drip. Her mentation improved and she is alert and orientated. Her tachycardia and electrolytes improved. She was noted to have an elevated white blood cell count but no sheila underlying source of infection. A CT of the abdomen was ordered but was not completed, as patient decided to LEAVE AGAINST MEDICAL ADVICE. The risks were explained to the patient including worsening DKA, infection, and . Patient had opportunity to ask questions about their medical condition, and were encouraged to return to the hospital for care if she feels worst. I have reviewed and discussed the patient's care with my attending, Dr. Suki Guallpa MD PGY-3 #DKA #DM1, uncontrolled. A1c > 14 #History of HTN #LEONA #Lactic acidosis #Anion gap metabolic acidosis #Hyperkalemia #Cocaine use Time Spent with Patient Time attestation: Total time spent providing and/or coordinating discharge services: Time spent: Greater than 30 minutes Exam Vital Signs Temp Pulse Resp BP Pulse Ox O2 Del Method O2 Flow Rate 97.6 F 88 18 128/76 100 Room Air 10 07/10/24 18:06 07/10/24 18:06 07/10/24 18:06 07/10/24 18:06 07/10/24 18:06 07/10/24 18:06 07/09/24 22:09 Narrative Exam Patient left AGAINST MEDICAL ADVICE. Discharge Plan Prescriptions/Referrals Prescriptions/Med Rec: No Action insulin glargine [Lantus U-100 Insulin] 100 unit/mL solution 20 unit subcut BID Qty: 10 0RF (DME) Accu-Chek SmartView Test Strip Strip See Rx Instructions .Route Qty: 100 5RF Rx Instructions: As directed levothyroxine [Synthroid] 88 MCG tablet 88 mcg PO QDAY 30 Days Qty: 30 3RF (DME) blood-glucose meter [FreeStyle [place] Lite] Kit See Rx Instructions .Route Qty: 1 0RF Rx Instructions: As directed (DME) pen needle, diabetic [Comfort EZ Pen [place]] 29 gauge x 1/2 needle See Rx Instructions .Route Qty: 100 0RF Rx Instructions: As directed aripiprazole 10 mg tablet 10 mg PO QDAY 9 Days Qty: 9 0RF insulin aspart U-100 [Novolog FlexPen U-100 Insulin] 100 unit/mL (3 mL) insulin pen 8 unit SUBCUT AC Qty: 15 0RF (DME) pen needle, diabetic 32 gauge x 1/4 needle See Rx Instructions .Route Qty: 100 0RF Rx Instructions: As directed (DME) lancets [FreeStyle Lancets] 28 gauge Misc Qty: 100 0RF Rx Instructions: Test BID (DME) lancet-gluc enodf-dfkxcp-cnier Kit See Rx Instructions .Route Qty: 1 5RF Rx Instructions: As directed acetaminophen [Tylenol] 325 mg tablet 650 mg PO Q6H PRN (Reason: fever or pain) Qty: 30 0RF buprenorphine-naloxone 12-3 mg film BUCCAL Patient Comments: dissolve 1 FILM under the tongue once daily Referrals: No Primary/Family,Physician [Primary Care Provider] - Patient/Caregiver Discharge Instructions Print Language: [place] Quality Discharge Quality Measures VTE prophylaxis
--- NOTE | 2024-07-10 18:26 | PD.RESEVENT ---
Documentation for date of: 07/10/24 Event Note Event Note: Received a call from nurse in the ED about Ms. Bruno as patient was asking to leave AGAINST MEDICAL ADVICE. When arrived at bedside patient was alert and oriented x 3 and she stated that the reason that she wanted to leave AGAINST MEDICAL ADVICE was because her home was being trespassed by someone whom she had a restraining order against. I emphasized to her that she is at very high risk of developing arrhythmias from her diabetic ketoacidosis and it would be leaving AGAINST MEDICAL ADVICE at this time given that she is still on the insulin drip. Patient understood and persisted in leaving AGAINST MEDICAL ADVICE. Nurse was at bedside who confirmed and witnessed the interaction patient signed AMA forms. I discussed patient's care with attending physician, Dr Suki Penaloza PGY3
[2024-07-10 20:31] LABS: Reflex Lactate? Y
[2024-07-12 05:59] LABS: Basophils % (Auto) 0 % (0-2.5); Eosinophils % (Auto) 0 % (0-10); Immature Granulocytes % (Auto) 1 % (0-0); Immature Granulocytes Auto 0.07 Thou/mm3 (0.00-0.00); Lymphocytes # (Auto) 2.1 Thou/mm3 (1.0-4.8); Lymphocytes % (Auto) 17 % (10-50); Mean Corpuscular HGB Conc 34.8 g/dl (31.0-37.0); Mean Corpuscular Hemoglobin 28.8 pg (25.0-35.0); Mean Corpuscular Volume 83 fL (80-100); Monocytes # (Auto) 0.8 Thou/mm3 (0.0-0.8); Monocytes % (Auto) 7 % (0-12); Neutrophils # (Auto) 9.2 Thou/mm3 (1.8-7.7); Neutrophils % (Auto) 75 % (37-80); Nucleated Red Blood Cell % 0 /100 WBC (0); Platelet Count 173 Thou/mm3 (140-440); RDW Standard Deviation 42.3 fL (36.4-46.3); Red Blood Count 3.02 Miln/mm3 (4.00-5.20); White Blood Count 12.2 Thou/mm3 (3.6-11.0)
[2024-07-12 06:05] LABS: Beta Hydroxybutyrate 1.5 mmol/L (<0.6)
[2024-07-12 06:27] LABS: Hemoglobin 8.7 g/dL (12.0-16.0)
[2024-07-13 05:49] LABS: Basophils % (Auto) 0 % (0-2.5); Eosinophils # (Auto) 0.1 Thou/mm3 (0.0-0.5); Eosinophils % (Auto) 2 % (0-10); Hematocrit 26.4 % (36.0-46.0); Hemoglobin 9.1 g/dL (12.0-16.0); Immature Granulocytes % (Auto) 0 % (0-0); Immature Granulocytes Auto 0.01 Thou/mm3 (0.00-0.00); Lymphocytes # (Auto) 2.5 Thou/mm3 (1.0-4.8); Lymphocytes % (Auto) 38 % (10-50); Mean Corpuscular HGB Conc 34.5 g/dl (31.0-37.0); Mean Corpuscular Hemoglobin 28.4 pg (25.0-35.0); Mean Corpuscular Volume 83 fL (80-100); Monocytes # (Auto) 0.5 Thou/mm3 (0.0-0.8); Monocytes % (Auto) 7 % (0-12); Neutrophils # (Auto) 3.4 Thou/mm3 (1.8-7.7); Neutrophils % (Auto) 52 % (37-80); Nucleated Red Blood Cell % 0 /100 WBC (0); Platelet Count 137 Thou/mm3 (140-440); RDW Standard Deviation 42.5 fL (36.4-46.3); White Blood Count 6.5 Thou/mm3 (3.6-11.0)
== END 2024-07-10 18:22 | disposition left against medical advice (07) | DRG 420 ==
LOC: SERX 07-10 01:43 → SERHOLD 07-10 02:30
PROVIDERS: Student in an Organized Health Care Education/Training Program; Admitting Provider Student in an Organized Health Care Education/Training Program; Emergency Provider Emergency Medicine; Visit Provider Internal Medicine
DX: E10.10 Type 1 diabetes mellitus with ketoacidosis without coma (principal); E87.5 Hyperkalemia; I10 Essential (primary) hypertension; E86.0 Dehydration; N17.9 Acute kidney failure, unspecified; R65.10 Systemic inflammatory response syndrome (SIRS) of non-infectious origin without acute organ dysfunction; E87.1 Hypo-osmolality and hyponatremia; E83.39 Other disorders of phosphorus metabolism; E03.9 Hypothyroidism, unspecified; T38.3X6A Underdosing of insulin and oral hypoglycemic [antidiabetic] drugs, initial encounter; F14.90 Cocaine use, unspecified, uncomplicated; F17.210 Nicotine dependence, cigarettes, uncomplicated; Z91.148 Patient's other noncompliance with medication regimen for other reason; Z53.29 Procedure and treatment not carried out because of patient's decision for other reasons; Z79.4 Long term (current) use of insulin; Z79.890 Hormone replacement therapy
CPT/HCPCS: 36415; 36600; 71045; 80053; 80069; 80307; 80320; 81001; 82010; 82803; 83036; 83605; 83735; 84100; 84702; 85025; 87040; 87086; J0131; J1644; J1815; J2270; J2405; J2543; J3480; J7030; J7050; J7120; J7121; A9270; G0480

== ENCOUNTER 2024-07-11 07:20 | Inpatient (IN) | payer MEDICAID, SELFPAY ==
[2024-07-11] VITALS (17 sets, daily range): BP systolic 101–162; BP diastolic 67–105; PULSE 100–128; RESP 21–98; TEMP 36.1–36.7; O2SAT 99–100; BMI 24.3
--- NOTE | 2024-07-11 | XR_ITS ---
Examination: AP chest single view TECHNIQUE: AP portable upright chest single view Date and time: July 11, 2024 1405 hours Comparison July 10, 2024 INDICATIONS: Post central line placement FINDINGS: Right internal jugular central line tip in SVC satisfactory position No pneumothorax Normal heart size IMPRESSION: Right internal jugular central line tip SVC satisfactory position
--- NOTE | 2024-07-11 07:21 | PD.EDSOB ---
ED SOB =RME/HPI General Chief Complaint: Shortness of Breath/Dyspnea Stated Complaint: HIGH BLOOD SUGAR Time Seen by Provider: 07/11/24 07:23 Arrival date/time: 07/11/24 07:20 RME / HPI RME / HPI Narrative: 29 year old female with history of type 1 diabetes, previous admissions for DKA, hypertension, noncompliance with medication regimen, and cocaine abuse presents to the ED BIBA for evaluation of shortness of breath. Per medics, patient reported feeling she was not able to get a full breath in. On scene, blood glucose check read HI . Per EMR review, patient was here 07/09/2024 and diagnosed with DKA. Was admitted to the ICU where she signed out against medical advise yesterday 07/10/2024. Related Data Home Medications ?Medication ?Instructions ?Recorded ?Confirmed buprenorphine 12 mg-naloxone 3 mg buccal 05/11/24 sublingual film Previous Rx's ?Medication ?Instructions ?Recorded aripiprazole 10 mg tablet 10 mg PO QDAY 9 days #9 tabs 12/08/23 blood sugar diagnostic (Accu-Chek #100 ea 12/08/23 SmartView Test Strips) blood-glucose meter (FreeStyle #1 ea 12/08/23 Isabel Lite kit) insulin aspart U-100 100 unit/mL 8 unit (0.08 mL) subcut AC #15 mL 12/08/23 (3 mL) subcutaneous pen (Novolog FlexPen U-100 Insulin aspart) insulin glargine 100 unit/mL 20 unit (0.2 mL) subcut BID #10 mL 12/08/23 subcutaneous solution (Lantus U-100 Insulin) lancets 28 gauge (FreeStyle #100 ea 12/08/23 Lancets) lancets-blood glucose test #1 ea 12/08/23 strips-pen needles with gauze kit levothyroxine 88 mcg tablet 88 mcg PO QDAY 30 days #30 tabs 12/08/23 (Synthroid) pen needle, diabetic 29 gauge x #100 ea 12/08/23 1/2 (Comfort EZ Pen [place]) pen needle, diabetic 32 gauge x #100 ea 12/08/23 1/4 acetaminophen 325 mg tablet 650 mg (2 x 325 mg) PO Q6H PRN 05/14/24 (Tylenol) fever or pain #30 tabs Allergies Allergy/AdvReac Type Severity Reaction Status Date / Time codeine Allergy Intermediate Abdominal Verified 07/11/24 07:28 Pain Review of Systems Review of Systems Narrative Review of Systems: Gen: No fever, no chills EYES: No discharge, no pain HEENT: No ear pain, no congestion, no sore throat PULM: +shortness of breath, no cough, no congestion CV: No chest pain, no palpitations, no chest tightness GI: No nausea, no vomiting, no diarrhea, no pain, no constipation : No frequency, no urgency,? no dysuria Musc/skel: No joint pain, no back pain Skin: No rash, no ecchymosis, no lesions Neuro: No weakness, no headache Past Medical History Past Medical History NEUROLOGIC: Negative Neurological Disorders CARDIAC: Negative Cardiac Disorders ENDOCRINE: Positive Diabetes Mellitus Type 1, Hypoglycemia and Hypothyroidism PSYCHO/SOCIAL: Positive Psychiatric Problems, Recreational Drug Use, Depression, Anxiety and Depression OTHER HISTORY: Positive Falls Family History FAMILY HISTORY: Positive Family Psychiatric Problems and Family Cancer Surgical History SURGICAL: Positive Section Social History SMOKING STATUS: Current every day smoker SECOND HAND EXPOSURE: No ED Exam Narrative Physical exam: GENERAL APPEARANCE: AxOx4, nontoxic appearing, kussmaul breathing HEENT: NC, AT. dry MM. EOMI, clear conjunctiva, oropharynx clear. NECK: Supple without lymphadenopathy. No stiffness or restricted ROM. HEART: Normal rate and regular rhythm, normal S1/S1, no m/r/g LUNGS: CTAB, moving air well. No crackles or wheezes are heard. ABDOMEN: Soft, nontender, nondistended with good bowel sounds heard. BACK: No midline C/T/L spine pain or deformity, No CVAT, no obvious deformity. EXTREMITIES: Without cyanosis, clubbing or edema. MUSCULOSKELETAL: FROM of all major joints, no chest tenderness NEUROLOGICAL: Grossly nonfocal. Alert and oriented, moving all 4 extremities. CN not formally tested but appear grossly intact. Skin: Warm and dry without any rash. Course Quality Measures none Orders Category Date Time Status Bedside Blood Glucose NOW Care 07/11/24 07:24 Active CBC Stat Lab 07/11/24 07:55 Completed CMP [Comprehensive Metabolic Panel] Stat Lab 07/11/24 07:55 Completed Ketone [Beta Hydroxybutyrate] Stat Lab 07/11/24 07:55 Completed Magnesium Stat Lab 07/11/24 07:55 Completed Phosphorous Stat Lab 07/11/24 07:55 Completed Urinalysis Stat Lab 07/11/24 07:23 Ordered VBG [Venous Blood Gas] Stat Lab 07/11/24 07:55 Completed Sodium Chloride 0.9% 1000 ml [Ns] 1,000 ml Med 07/11/24 07:23 Discontinued IV 999 mls/hr Sodium Chloride 0.9% 1000 ml [Ns] 1,000 ml Med 07/11/24 07:24 Discontinued IV 999 mls/hr Vital Signs Vital signs: Vital Signs Temperature 97.7 F 07/11/24 07:20 Pulse Rate 128 H 07/11/24 07:20 Respiratory Rate 22 H 07/11/24 07:20 Blood Pressure 153/96 H 07/11/24 07:20 Pulse Oximetry (%) 100 07/11/24 07:20 Oxygen Delivery Method Room Air 07/11/24 07:20 Shortness of Breath / Dyspnea MDM Narrative MDM Narrative:: Ms. Cooley presents with concerns and metabolic breathing concerning for DKA. She was aggressively hydrated on arrival and to be admitted to ICU. Patient has dilated pupils and anxious/jiterryness concerning for active sympathomimetic use complicating the picture. ITrixie am scribing for and in the presence of Dr. Jackson. Patient data External records reviewed:: [facility] previous records (I reviewed ED visit on 07/09/2024, patient was admitted to the ICU for DKA and signed out AMA on 07/10/2024) and EMS form Clinical information provided by:: patient and EMS Social determinants that could affect healthcare access:: substance use (hx of methamphetamine and cocaine use ) Patient has the following chronic illnesses:: T1DM, hypertension How is presenting disease/condition affected by chronic disease/condition?: exacerbated by Evaluation data The following diagnostics were reviewed and interpreted by me:: lab results Lab and/or radiology exams considered but not ordered:: None Interpretation Summary: As per narrative Medications / Prescriptions Medications or Prescriptions considered but not ordered:: None Medication administrations:: Medication Administration History Discontinued Medications Sodium Chloride (Ns) 1,000 mls @ 999 mls/hr IV .Q1H1M ONE Stop: 07/11/24 08:23 Last Admin: 07/11/24 07:58 Dose: 999 mls/hr Documented By: ROMAN Sodium Chloride (Ns) 1,000 mls @ 999 mls/hr IV .Q1H1M ONE Stop: 07/11/24 08:24 Last Admin: 07/11/24 08:00 Dose: 999 mls/hr Documented By: RMOAN above Consultations Consultation(s) initiated? (list below): Yes Consultation #1 (Physician, Specialty, Details): Dr. Cohn, ICU, case reviewed and will admit to ICU [facility] Time: 08:20 Diagnosis Shortness of Breath Differential Diagnosis: community acquired pneumonia and other (DKA, hyperglycemia ) Most likely diagnosis given after review of the tests above:: see below Admission Indicated Admission indicated?: indicated Admission Request Was there a request for admission?: Yes Admission Attestation Admission request attestation: Discussed case with [Dr. Cohn] from ICU service regarding admission. Discussed patients ED course, exam findings, labs, and radiology results. The house mover supervisor [agrees] to accept the patient for admission. Disposition Plan Disposition Plan: Admit Critical Care Time Critical Care Time Critical Care Time: Yes Total Critical Care Time (min.): 35 Attestation: The high probability of sudden, clinically significant deterioration in the patient's condition required the highest level of my preparedness to intervene urgently. The services I provided to this patient were to treat and/or prevent clinically significant deterioration. Services included the following: chart data review, reviewing nursing notes and/or old charts, documentation time, product development consultant collaboration regarding findings and treatment options, medication orders and management, direct patient care, vital sign assessments and ordering, interpreting and reviewing diagnostic studies and lab tests. Aggregate critical care time includes only time during which I was engaged in work directly related to the patient's care, as described above, whether at bedside or elsewhere in the Emergency Department. It did not include time spent performing other reported procedures or the services of residents, students, nurses or physician assistants. Discharge Plan Plan Patient Disposition: Admit Acute Care w/in Hospital Prescriptions/Referrals Prescriptions/Med Rec: No Action insulin glargine [Lantus U-100 Insulin] 100 unit/mL solution 20 unit subcut BID Qty: 10 0RF (DME) Accu-Chek SmartView Test Strip Strip See Rx Instructions .Route Qty: 100 5RF Rx Instructions: As directed levothyroxine [Synthroid] 88 MCG tablet 88 mcg PO QDAY 30 Days Qty: 30 3RF (DME) blood-glucose meter [FreeStyle Isabel Lite] Kit See Rx Instructions .Route Qty: 1 0RF Rx Instructions: As directed (DME) pen needle, diabetic [Comfort EZ Pen [place]] 29 gauge x 1/2 needle See Rx Instructions .Route Qty: 100 0RF Rx Instructions: As directed aripiprazole 10 mg tablet 10 mg PO QDAY 9 Days Qty: 9 0RF insulin aspart U-100 [Novolog FlexPen U-100 Insulin] 100 unit/mL (3 mL) insulin pen 8 unit SUBCUT AC Qty: 15 0RF (DME) pen needle, diabetic 32 gauge x 1/4 needle See Rx Instructions .Route Qty: 100 0RF Rx Instructions: As directed (DME) lancets [FreeStyle Lancets] 28 gauge Misc Qty: 100 0RF Rx Instructions: Test BID (DME) lancet-gluc [id number] Kit See Rx Instructions .Route Qty: 1 5RF Rx Instructions: As directed acetaminophen [Tylenol] 325 mg tablet 650 mg PO Q6H PRN (Reason: fever or pain) Qty: 30 0RF buprenorphine-naloxone 12-3 mg film BUCCAL Patient Comments: dissolve 1 FILM under the tongue once daily Referrals: No Primary/Family,Physician [Primary Care Provider] - In 1 week Problem List Clinical Impression: Diabetic ketoacidosis, Cocaine abuse Patient/Caregiver Discharge Instructions Print Language: Vietnamese Stand Alone Forms: Kourtney Award Info., Patient Portal Info Letter
[2024-07-11] MEDS: SODIUM CHLORIDE 0.9% 1000 ML 1,000 ML 999 ML IV ×2 (07:58→08:00)
[2024-07-11 08:04] LABS: Base Excess, Venous -30 (-3-3); O2 Saturation, Venous 91 % (96-97); PCO2, Venous 13 mmHg (36-56); PO2, Venous 88 mmHg (15-58); pH, Venous 6.88 (7.33-7.66)
[2024-07-11 08:09] LABS: Beta Hydroxybutyrate 4.4 mmol/L (<0.6)
--- NOTE | 2024-07-11 08:13 | PC.NURSE ---
BEDSIDE GLUCOSE READS HIGH
[2024-07-11 08:21] LABS: Basophils # (Auto) 0.1 Thou/mm3 (0.0-0.2); Basophils % (Auto) 0 % (0-2.5); Eosinophils % (Auto) 0 % (0-10); Hematocrit 37.1 % (36.0-46.0); Hemoglobin 12.1 g/dL (12.0-16.0); Immature Granulocytes % (Auto) 1 % (0-0); Immature Granulocytes Auto 0.25 Thou/mm3 (0.00-0.00); Lymphocytes # (Auto) 0.8 Thou/mm3 (1.0-4.8); Lymphocytes % (Auto) 3 % (10-50); Mean Corpuscular HGB Conc 32.6 g/dl (31.0-37.0); Mean Corpuscular Hemoglobin 28.5 pg (25.0-35.0); Mean Corpuscular Volume 88 fL (80-100); Monocytes # (Auto) 0.7 Thou/mm3 (0.0-0.8); Monocytes % (Auto) 3 % (0-12); Neutrophils # (Auto) 24.4 Thou/mm3 (1.8-7.7); Neutrophils % (Auto) 93 % (37-80); Nucleated Red Blood Cell % 0 /100 WBC (0); Platelet Count 395 Thou/mm3 (140-440); RDW Standard Deviation 46.4 fL (36.4-46.3); Red Blood Count 4.24 Miln/mm3 (4.00-5.20); White Blood Count 26.2 Thou/mm3 (3.6-11.0)
[2024-07-11 08:34] LABS: Alanine Aminotransferase 19 U/L (10-49); Albumin, Serum 4.5 gm/dL (3.5-5.0); Albumin/Globulin Ratio 1.7 (1.2-2.2); Alkaline Phosphatase 149 U/L (46-116); Anion Gap 25 (7-16); Aspartate Amino Transferase 26 U/L (0-34); BUN/Creatinine Ratio 9 Ratio (12-20); Bilirubin,Total 0.3 mg/dL (0.3-1.2); Blood Urea Nitrogen 17 mg/dL (9-23); Calcium 8.7 mg/dL (8.3-10.6); Calcium (Corrected) 8.7 mg/dL (8.5-10.1); Chloride 96 mMol/L (98-107); Creatinine (Component) 1.8 mg/dL (0.6-1.3); Estimated Creatinine Clearance 45.7 mL/min (>60); Globulin 2.6 gm/dL (2.3-3.5); Magnesium 2.2 mg/dL (1.6-2.6); Osmolality,Calculated 303 (275-295); Phosphorous 7.7 mg/dL (2.4-5.1); Potassium 5.4 mMol/L (3.4-5.1); Sodium 131 mMol/L (136-145); Total Protein 7.1 gm/dL (5.7-8.2); eGFR 38 See Note
[2024-07-11 08:35] LABS: Carbon Dioxide < 10.0 mMol/L (20.0-31.0)
[2024-07-11 08:36] LABS: Glucose 796 mg/dL (74-106)
[2024-07-11] MEDS: Sodium Bicarb Inj 8.4% SYR 50 ML SYRINGE IV ×3 (08:55→14:09)
[2024-07-11] MEDS: ONDANSETRON INJ 2 MG/ML INJ 2 ML 4 MG IV (08:56)
[2024-07-11] MEDS: RINGERS LACTATED 1000 ML 1,000 ML 250 ML IV (10:00)
[2024-07-11] MEDS: INSULIN REG 100 UNITS/100 ML 100 UNIT in PRE-MIXED 1 BAG 7.258 UNIT IV (10:00)
[2024-07-11] MEDS: POT CHL ADDITIVE 20 MEQ in RINGERS LACTATED 1000 ML 1,000 ML 250 MEQ IV ×2 (10:55→17:00)
--- NOTE | 2024-07-11 12:00 | PD.RESPROC ---
Procedures Procedure Date / Time 07/11/24 12:00 Procedural Time Out Time out performed: Central Line Placement Right IJV Time out to correct patient, procedure, site, and equipment use-including Ultrasound. Sterile techniques followed with use of mask, cap, gowns, and hair nets. Patient placed in Trendelenbur position. Ultrasound used to confirm location of r. IJV. Chlorhexidine scrub used to sanitize right anterior triangle neck and including subclavian triangle. Area draped. Sterile covered used for US probe. 1% Lidocaine used to anesthetize skin area at R. IJV. Introducer needle inserted into vein using negative pressure. Venous blood withdrawn. Syringe removed and guide wire advanced. Guidewire placement confirmed with US. Incision made with scalpel adjacent to introduced needle. Introducer needle removed and dilator advanced over guide wire. Central venous catheter advanced via guide wire. Guide wire removed. Biopatch added. Catheter sutured into place. Dressing applied. Chest X-ray ordered. - The patient's plan was discussed with attending Dr. Cohn and senior residents Dr. Guallpa. Lidia Rogers MD PGY1 Internal Medicine Central Line Placement Right IJ: Indication(s): poor, or inadequate peripheral venous access Informed consent obtained: from patient Time out done, and the following verified: correct patient, side and site, procedure and patient position Patient placed on monitor/pulse ox: Yes Hand Hygiene: scrub, soap & water and alcohol-based hand rub Max Sterile Barrier Techniques used: cap, mask, sterile gown, sterile gloves and sterile full body drape Central line prep: Chlorhexidine scrub Local anesthesia used: lidocaine 1% Amount of anesthesia used (mL): 10 Ultrasound used for placement: Yes Sterile Technique if Ultrasound used, including sterile gel: yes Central line lumen inserted: single Post procedure: sutured in place, good blood return, all ports aspirated, flushed, capped and sterile dressing applied Post procedure x-ray: tip of catheter in good position and no pneumothorax seen Patient tolerated procedure: well EBL(ml): 0 Complications: none
[2024-07-11] MEDS: ACETAMINOPHEN 325 MG TABLET 650 MG PO ×2 (14:09→21:45)
[2024-07-11 15:56] LABS: Anion Gap 27 (7-16); BUN/Creatinine Ratio 12 Ratio (12-20); Blood Urea Nitrogen 21 mg/dL (9-23); Calcium 8.1 mg/dL (8.3-10.6); Calcium (Corrected) 8.1 mg/dL (8.5-10.1); Chloride 99 mMol/L (98-107); Creatinine (Component) 1.7 mg/dL (0.6-1.3); Estimated Creatinine Clearance 48.4 mL/min (>60); Magnesium 2.2 mg/dL (1.6-2.6); Osmolality,Calculated 312 (275-295); Phosphorous 7.9 mg/dL (2.4-5.1); Potassium 5.1 mMol/L (3.4-5.1); Sodium 136 mMol/L (136-145); eGFR 41 See Note
[2024-07-11 15:56] LABS: Albumin, Serum 4.5 gm/dL (3.5-5.0); Anion Gap 27 (7-16); BUN/Creatinine Ratio 11 Ratio (12-20); Blood Urea Nitrogen 18 mg/dL (9-23); Calcium 8.5 mg/dL (8.3-10.6); Calcium (Corrected) 8.5 mg/dL (8.5-10.1); Chloride 102 mMol/L (98-107); Creatinine (Component) 1.7 mg/dL (0.6-1.3); Estimated Creatinine Clearance 48.4 mL/min (>60); Magnesium 2.3 mg/dL (1.6-2.6); Osmolality,Calculated 311 (275-295); Phosphorous 6.3 mg/dL (2.4-5.1); Potassium 5.1 mMol/L (3.4-5.1); Sodium 139 mMol/L (136-145); eGFR 41 See Note
[2024-07-11 16:13] LABS: Carbon Dioxide < 10.0 mMol/L (20.0-31.0)
[2024-07-11 16:14] LABS: Glucose 783 mg/dL (74-106)
[2024-07-11 16:15] LABS: Carbon Dioxide < 10.0 mMol/L (20.0-31.0)
[2024-07-11 16:16] LABS: Glucose 672 mg/dL (74-106)
[2024-07-11 16:18] LABS: Lactate (Lactic Acid) 5.6 mMol/L (0.4-2.0)
[2024-07-11 16:19] LABS: Lactate (Lactic Acid) 4.1 mMol/L (0.4-2.0)
[2024-07-11 16:20] LABS: Base Excess, Venous -30 (-3-3); O2 Saturation, Venous 93 % (96-97); PCO2, Venous 14 mmHg (36-56); PO2, Venous 96 mmHg (15-58); pH, Venous 6.86 (7.33-7.66)
[2024-07-11 16:20] LABS: Base Excess, Venous -28 (-3-3); O2 Saturation, Venous 82 % (96-97); PCO2, Venous 16 mmHg (36-56); PO2, Venous 59 mmHg (15-58); pH, Venous 6.93 (7.33-7.66)
[2024-07-11 16:34] LABS: Collection Type, Urine Clean Catch; Squamous Epithelial Cell,Urine 0 /hpf (0-5)
[2024-07-11 16:36] LABS: Base Excess, Venous -16 (-3-3); Lactate (Lactic Acid) 1.4 mMol/L (0.4-2.0); O2 Saturation, Venous 83 % (96-97); PCO2, Venous 18 mmHg (36-56); PO2, Venous 43 mmHg (15-58); pH, Venous 7.29 (7.33-7.66)
[2024-07-11 17:06] LABS: Amorphous Crystals,Urine Present (Absent); Bacteria,Urine Rare; Bilirubin,Urine Negative (Negative); Blood,Urine Trace (Negative); Budding Yeast,Urine Present; Clarity,Urine Clear (Clear/Hazy); Glucose, Urine 4+ (Negative); Ketones,Urine 4+ (Negative); Leukocyte Esterase,Urine Negative (Negative); Nitrite,Urine Negative (Negative); Protein,Urine Negative (Neg - Trace); RBC,Urine < 1 /hpf (0-3); Specific Gravity,Urine 1.019 (1.001-1.035); Urobilinogen,Urine Negative mg/dL (0.0-1.0); WBC,Urine < 1 /hpf (0-5)
[2024-07-11 17:07] LABS: Color,Urine Lt-Yellow (Lt Yel-Yel)
[2024-07-11 17:17] LABS: Albumin, Serum 3.3 gm/dL (3.5-5.0); Anion Gap 24 (7-16); BUN/Creatinine Ratio 16 Ratio (12-20); Blood Urea Nitrogen 19 mg/dL (9-23); Calcium 7.3 mg/dL (8.3-10.6); Calcium (Corrected) 7.9 mg/dL (8.5-10.1); Chloride 109 mMol/L (98-107); Creatinine (Component) 1.2 mg/dL (0.6-1.3); Estimated Creatinine Clearance 68.5 mL/min (>60); Glucose 223 mg/dL (74-106); Magnesium 1.7 mg/dL (1.6-2.6); Osmolality,Calculated 294 (275-295); Potassium 3.3 mMol/L (3.4-5.1); Sodium 143 mMol/L (136-145); eGFR > 60 See Note
[2024-07-11 17:30] LABS: Carbon Dioxide < 10.0 mMol/L (20.0-31.0)
--- NOTE | 2024-07-11 17:39 | PD.RESHP ---
Documentation for date of: 07/11/24 [facility] History of Present Illness History of present illness: Patient is a 29-year-old female with a past medical history of substance use disorder (cocaine), diabetes mellitus type 1 insulin-dependent (glargine 20 units twice daily), and hypothyroidism. Patient had recent hospitalization on 07/10/2024 overnight for DKA and left AGAINST MEDICAL ADVICE on the evening of 07/10/2024. Presented to the emergency room on 07/11/2024 via ambulance with a chief complaint of hyperglycemia and shortness of breath on 4 L of oxygen. Patient stated that shortly after leaving AGAINST MEDICAL ADVICE yesterday, patient consumed cocaine, patient is unable to quantify amount but stated it was a lot . Patient stated she has not taken insulin since leaving AGAINST MEDICAL ADVICE. Complaining of nausea, fatigue, and several episodes of emesis. ER Course: Vitals: 153/96, heart rate 128, respiratory rate 22, temperature 97.7, SpO2 100% on room air. Sodium 131, likely pseudohyponatremia given corrected sodium of 142 secondary to hyperglycemia. Hyperkalemia 5.4 hypochloremia, 96. Metabolic acidosis with bicarb of less than 10. Lactic acid of 5.6. Anion gap of 25. Hyperglycemia, 796. Hyperphosphatemia 7.7. LEONA, BUN 17, creatinine 1.8, GFR 38. Beta hydroxybutyrate 4.4. UA showing positive ketones plus glucose. U tox positive for opioids and cocaine. WBC count 26.2 VBG pH 6.8, pCO2 13, O2 88, excess base -30 Patient was admitted on 07/11/2024 directly into the ICU for DKA. PMH: -Diabetes Mellitus Type I -Hypothyroidism - Substance Use Disorder, Cocaine Home Medication: -Levothyroxine 88 mcg qday -Glargine 20 units BID -Aspart 8 units Social History: Substance use disorder, Cocaine Allergies: None Code Status: Full Code Review of Systems Review of Systems Narrative Review of Systems: General appearance: NO weight change, NO fatigue, YES weakness, NO fever, NO chills, NO night sweats, No cough Skin: NO rash, NO itching, NO sores, NO moles HEENT: NO Trauma, NO nausea, NO vomiting, NO visual changes, NO blurry vision, NO double vision, NO tinnitus, NO vertigo, NO ear discharge, NO rhinorrhea, NO stuffiness, NO sneezing, NO allergy, NO epistaxis. NO Hoarseness, NO sore throat, NO swollen neck. Cardiac: YES Palpitations, NO dyspnea on exertion, NO orthopnea, NO paroxysmal nocturnal dyspnea, NO edema Respiratory: NO Shortness of Breath, NO Wheezing, NO Cough, NO Sputum, NO hemoptysis GI:NO appetite, YES nausea, YES vomiting, NO dysphagia, NO changes in bowel frequency, NO stool color, NO diarrhea, NO constipation, NO hemetemesis, NO hemorrhoids, NO melena, NO hematechezia, NO abdominal pain, NO jaundice Renal: NO frequency, NO hesitancy, NO urgency, NO hematuria, NO nocturia, NO incontinence MSK: NO muscle weakness, NO gout, NO arthritis, NO muscle stiffness Neuro: NO headaches, NO tremors, NO weakness, NO paralysis, NO seizures, NO loss of consciousness, NO numbness. Hem: NO anemia, NO easy bruising/bleeding, NO petechiae, NO purpura Endo: NO heat/cold intolerance, NO excessive sweating, NO polyuria, NO polydipsia, NO polyphagia, YES thyroid problems, YES diabetes Pysch: NO mood, NO anxiety, NO depression Exam Vital Signs Temp Pulse Resp BP Pulse Ox O2 Del Method 97.7 F 128 H 22 H 153/96 H 100 Room Air 07/11/24 07:20 07/11/24 07:20 07/11/24 07:20 07/11/24 07:20 07/11/24 07:20 07/11/24 07:20 Narrative Exam General Appearance: Alert & Oriented X3, thin female who is lying in bed in mild distress secondary DKA HEENT: Skull symmetrical and atraumatic. Conjunctivae pin and moist. Pupils equal, round, reactive to light and accommodation (PERRL). External ear without lesion or discharge. Straight, nares patient, mucosa pink, no discharge. No thyroid nodule appreciated. No cervical lymphadenopathy. Cardio: Normal Rate and Rhythm with S1 and S2 heart sounds. No murmurs or extra heart sounds auscultated. No bruits on carotid auscultation. No peripheral edema or cyanosis. Lungs: Symmetric with good expansion. Chest and back non-tender. Breath sounds vesicular without crackles, wheezing or rhonchi Abdomen: Diffuse tender, Non-distended, Normal Reactive Bowel Sounds, Supra-pubic tenderness Neuro: Alert, cooperative, oriented to person, place, and time. Speech clear. CN grossly intact. Upper motor strength 5/5 and Lower motor strength 5/5. Sensation intact. Results: Labs 07/11/24 07:55 07/11/24 16:25 Labs: Short CBC 07/11/24 Range/Units 07:55 WBC 26.2 H (3.6-11.0) Thou/mm3 Hgb 12.1 (12.0-16.0) g/dL Hct 37.1 (36.0-46.0) % Plt Count 395 D (140-440) Thou/mm3 BMP 07/11/24 07/11/24 07/11/24 07:55 09:05 12:50 Sodium 131 L 136 139 Potassium 5.4 H D 5.1 5.1 Chloride 96 L 99 102 Carbon Dioxide < 10.0 L* < 10.0 L* < 10.0 L* BUN 17 21 18 Creatinine 1.8 H D 1.7 H 1.7 H Glucose 796 H* D 783 H* 672 H* D Calcium 8.7 8.1 L 8.5 07/11/24 16:25 Sodium 143 Potassium 3.3 L D Chloride 109 H Carbon Dioxide < 10.0 L* BUN 19 Creatinine 1.2 D Glucose 223 H D Calcium 7.3 L Liver Function 07/11/24 07/11/24 07/11/24 Range/Units 07:55 09:05 12:50 Total Bilirubin 0.3 (0.3-1.2) mg/dL AST 26 (0-34) U/L ALT 19 (10-49) U/L Alkaline Phosphatase 149 H (46-116) U/L Albumin 4.5 D 4.0 D 4.5 (3.5-5.0) gm/dL 07/11/24 Range/Units 16:25 Total Bilirubin (0.3-1.2) mg/dL AST (0-34) U/L ALT (10-49) U/L Alkaline Phosphatase (46-116) U/L Albumin 3.3 L D (3.5-5.0) gm/dL Urine 07/11/24 Range/Units 16:25 Urine Color Lt-Yellow (Lt Yel-Yel) Urine Clarity Clear (Clear/Hazy) Urine pH 5.0 (5.0-7.0) Ur Specific [place] 1.019 (1.001-1.035) Urine Protein Negative (Neg - Trace) Urine Glucose (UA) 4+ A (Negative) ABG Interpretation ABG results: 07/11/24 07/11/24 07/11/24 07:55 09:05 12:50 VBG pH 6.88 L 6.86 L 6.93 L VBG pCO2 13 L 14 L 16 L VBG pO2 88 H D 96 H 59 H D VBG Base Excess -30 L -30 L -28 L 07/11/24 16:25 VBG pH 7.29 L VBG pCO2 18 L VBG pO2 43 VBG Base Excess -16 L Quality Measures Quality Measures none Medications Home Medications and Allergies Home Medications ?Medication ?Instructions ?Recorded ?Confirmed ?Type buprenorphine 12 mg-naloxone 3 mg buccal 05/11/24 History sublingual film Allergies Allergy/AdvReac Type Severity Reaction Status Date / Time codeine Allergy Intermediate Abdominal Verified 07/11/24 07:28 Pain Visit Medications Acetaminophen (Acetaminophen 325 Mg Tablet) 650 mg PO Q6H PRN PRN Reason: Mild pain 3 or Fever >100.3 Stop: 08/10/24 08:31 Last Admin: 07/11/24 14:09 Dose: 650 mg Dextrose (Dextrose 50%-Water Inj 50 Ml Syringe) 25 ml IV [id number] PRN PRN Reason: Blood Sugar - Low Hydroxyzine HCl (Hydroxyzine Hcl 10 Mg Tablet) 10 mg PO Q6HR PRN PRN Reason: ITCHING Stop: 08/10/24 08:48 Potassium Chloride (Kcl Ivpb) 10 meq in 100 mls @ 100 mls/hr IV .Q1H PRN PRN Reason: IF POTASSIUM LESS THAN 3.3 Stop: 08/10/24 08:31 Magnesium Sulfate (Magnesium Sulfate Ivpb) 2 gm in 50 mls @ 25 mls/hr IV .Q2H PRN PRN Reason: PER DKA PROTOCOL Stop: 08/10/24 08:31 Insulin Human Regular 100 unit (/ IV Miscellaneous Supplies) 100 mls @ 7.258 mls/hr IV .[id number] PRN; Protocol PRN Reason: PER PROTOCOL Stop: 08/10/24 08:31 Last Titration: 07/11/24 17:00 Dose: 0.05 unit/kg/hr, 3.629 mls/hr Dextrose/Lactated Ringer's (D5-Lr) 1,000 mls @ 250 mls/hr IV .Q4H PRN PRN Reason: PER PROTOCOL Stop: 08/10/24 08:31 Lactated Ringer's (Lactated Ringers) 1,000 mls @ 250 mls/hr IV .Q4H PRN PRN Reason: PER PROTOCOL Stop: 07/12/24 08:31 Last Infusion: 07/11/24 10:55 Dose: 0 mls/hr Potassium Chloride 20 meq/ (Lactated Ringer's) 1,010 mls @ 250 mls/hr IV .Q4H3M PRN PRN Reason: K LEVEL 3.3 TO 5.3mM/L Stop: 08/10/24 08:31 Last Admin: 07/11/24 17:00 Dose: 250 mls/hr Potassium Chloride 40 meq/ (Lactated Ringer's) 1,020 mls @ 250 mls/hr IV .Q4H5M PRN PRN Reason: K LEVEL < 3.3 mM/L Stop: 08/10/24 08:31 Potassium Chloride 40 meq/ (Dextrose/Lactated Ringer's) 1,020 mls @ 250 mls/hr IV .Q4H5M PRN PRN Reason: K LEVEL < 3.3mM/L Stop: 08/10/24 08:31 Potassium Chloride (Kcl Ivpb) 10 meq in 100 mls @ 50 mls/hr IV PRN PRN PRN Reason: K LEVEL 3.3 to 5.3 & BG > 200 Stop: 08/10/24 08:31 Potassium Phosphate (Pot Phos 15 Mmol In Ns 250 Ml) 15 mmol in 250 mls @ 62.5 mls/hr IV PRN PRN PRN Reason: Phosphate <= 1mg/dL Stop: 08/10/24 08:31 Sodium Phosphate 15 mmol/ (Sodium Chloride) 255 mls @ 62.5 mls/hr IV .Q4H5M PRN PRN Reason: Phosphate <= 1mg/dL and K> than 5.3 Stop: 08/10/24 08:31 Potassium Chloride 20 meq/ (Dextrose/Lactated Ringer's) 1,010 mls @ 250 mls/hr IV .Q4H3M PRN PRN Reason: K LEVEL 3.3 TO 5.3 mM/L Stop: 08/10/24 08:31 Ondansetron HCl (Ondansetron Inj 2 Mg/Ml Inj 2 Ml) 4 mg IV Q6H PRN; Protocol PRN Reason: NAUSEA OR VOMITING Stop: 08/10/24 08:31 Last Admin: 07/11/24 08:56 Dose: 4 mg Pantoprazole Sodium (Pantoprazole Inj 40 Mg Vial) 40 mg IV QDAY TRUDI Stop: 08/10/24 08:59 Last Admin: 07/11/24 16:54 Dose: Not Given Sennosides (Senna Tablet) 1 tab PO QDAY PRN; Protocol PRN Reason: constipation Stop: 08/10/24 08:31 Sodium Bicarbonate (Sodium Bicarb Inj 8.4% Syr 50 Ml Syringe) 50 ml IV PRN PRN PRN Reason: For ph <= to 7.0 Stop: 08/10/24 08:31 Last Admin: 07/11/24 14:09 Dose: 50 ml Discontinued Medications Sodium Chloride (Ns) 1,000 mls @ 999 mls/hr IV .Q1H1M ONE Stop: 07/11/24 08:23 Last Admin: 07/11/24 07:58 Dose: 999 mls/hr Sodium Chloride (Ns) 1,000 mls @ 999 mls/hr IV .Q1H1M ONE Stop: 07/11/24 08:24 Last Admin: 07/11/24 08:00 Dose: 999 mls/hr Potassium Cl/Dextrose/Lact Ringer's (Kcl 20 Meq/L In D5-Lr) 20 meq in 1,000 mls @ 250 mls/hr IV .Q4H PRN PRN Reason: K LEVEL 3.3 TO 5.3 mM/L Stop: 08/10/24 08:31 Assessment & Plan Plan Patient is a 29-year-old female with a past medical history of substance use disorder (cocaine), diabetes mellitus type 1 insulin-dependent (glargine 20 units twice daily), and hypothyroidism who was admitted on on 07/11/2024 directly into the ICU for DKA. Central Nervous System: Problem: Substance use disorder, cocaine DDX: Patient is alert and oriented x 3 Dx: U tox positive for cocaine RX: Hydroxyzine 10 mg p.o. every 6 hours as needed RRX: Consider Ativan 1 mg IV push x 1 Cardiovascular: Problem: Sinus tachycardia, asymptomatic DDX: Likely secondary to cocaine use disorder with positive U tox in the setting of DKA and hypovolemia given poor oral intake Dx: RX: RRX: Avoid beta-blockers given positive cocaine use Respiratory: Problem: Tachypneic DDX: Tachypneic likely in the setting of metabolic acidosis, with compensation-saturating well on room air. Dx: Chest [id number] for pneumothorax or pneumonia RX: VBG's per DKA protocol RRX: Consider nasal cannula Gastroenterology: Problem: Stable DDX: Dx: RX: RRX: Renal: Problem: LEONA DDX: LEONA on admission with a BUN of 17, creatinine 1.8 and BUN and creatinine ratio of 9, GFR 38. This is an increase in creatinine greater than 0.3 given previous creatinine on 07/10/2024 1.2. Likely prerenal in the setting of poor oral intake and emesis secondary to DKA. Obstructive AKA cannot be ruled out as urinary retention present with 2 L of urine removed during straight cath. Dx: BUN 17, creatinine 1.8 BUN/creatinine ratio 9 (07/11/2024) RX: Avoid nephrotoxins, renally dose medication, renal panels per DKA protocols, lactated ringer to 250 cc per protocol for DKA RRX: Continue to monitor renal panel Problem #Metabolic acidosis DDx: Metabolic acidosis in the setting of DKA and lactic acid Dx: Lactic acid 5.6, bicarb less than 10, beta hydroxybutyrate 4.4, UA positive ketones plus glucose Rx: Treat underlying condition, DKA protocols Rxx: #Pseudohyponatremia Pseudohyponatremia in the setting of hyperglycemia. On admission sodium 131--> corrected sodium 142 Continue to monitor Heme: Problem: Leukocytosis DDX: Reactive leukocytosis in the setting of DKA Dx: Chest x-ray negative, UA negative for nitrites, negative esterase, and negative wBC <1. RX: RRX: Monitor for fevers or signs of infection Endo: Problem: DKA, hyperglycemia, diabetes mellitus type 1, nonadherent DDX: DKA in the setting of nonadherence with a past medical history of diabetes mellitus type 1. Patient left AMA on 07/10/2024 despite requiring insulin. Patient is noncompliant with glargine 20 units twice daily at home. Dx: Anion gap 25 bicarb less than 10, beta hydroxybutyrate 4.4, VBG pH 6.88 UA positive for ketones positive for glucose. A1c (07/10/2024): >14.0 RX: DKA protocols RRX: Monitor anion gap with bicarb serum near 20 Problem: history of hypothyroidism DDx: no TSH on file, possible use of levothyroxine as home medication Dx: TSH AM draw Rx: RRx: consider free t4 ID: Problem: SIRS criteria DDX: SIRS criteria in the setting of DKA less likely infectious Dx: Chest x-ray negative UA negative. RX: Continue to monitor RRX: Health Maintenance: Disp: Pt is currently admitted to floors for further management of DKA, awaiting anion gap to close FEN: NPO, patient may have ice chips or water DVT: on subQ heparin GI: Prontonix 40 mg IV Qday Lines: R. IJV, left peripheral Bladder Scan Q4 hrs, Ins & Out Code: Full Code - The patient's plan was discussed with attending Dr. Suki Rogers MD PGY1 Internal Medicine
[2024-07-11] MEDS: NAPH,KPH MBDB 1 PACKET (1.5 GM) PO ×2 (18:20→20:19)
[2024-07-11] MEDS: POTASSIUM CHLORIDE 10% 20 MEQ/15 ML UDC 40 MEQ PO (18:20)
[2024-07-11] MEDS: POT CHL ADDITIVE 20 MEQ in DEXTROSE 5%-LACTATED RINGERS 1,000 ML 250 MEQ IV (18:28)
[2024-07-11 19:03] LABS: Reflex Lactate? Y
[2024-07-11 19:03] LABS: Reflex Lactate? Y
[2024-07-11] MEDS: Magnesium Sulfate 2 GM Ivpb 2 GM/50 ML BAG IV (20:18)
[2024-07-11 21:23] LABS: Base Excess, Venous -7 (-3-3); O2 Saturation, Venous 96 % (96-97); PCO2, Venous 24 mmHg (36-56); PO2, Venous 60 mmHg (15-58); pH, Venous 7.43 (7.33-7.66)
[2024-07-11 21:24] LABS: Lactate (Lactic Acid) 0.9 mMol/L (0.4-2.0)
[2024-07-11 21:46] LABS: Albumin, Serum 3.1 gm/dL (3.5-5.0); Anion Gap 14 (7-16); BUN/Creatinine Ratio 14 Ratio (12-20); Blood Urea Nitrogen 15 mg/dL (9-23); Calcium 7.8 mg/dL (8.3-10.6); Calcium (Corrected) 8.5 mg/dL (8.5-10.1); Carbon Dioxide 16.4 mMol/L (20.0-31.0); Chloride 106 mMol/L (98-107); Creatinine (Component) 1.1 mg/dL (0.6-1.3); Estimated Creatinine Clearance 74.8 mL/min (>60); Glucose 133 mg/dL (74-106); Osmolality,Calculated 274 (275-295); Potassium 3.8 mMol/L (3.4-5.1); Sodium 136 mMol/L (136-145); eGFR > 60 See Note
[2024-07-11] MEDS: DEXTROSE 5%-LACTATED RINGERS 1,000 ML 250 ML IV (23:11)
[2024-07-12] VITALS (22 sets, daily range): BP systolic 109–141; BP diastolic 63–91; PULSE 72–110; RESP 18–99; TEMP 36.3–37.1; O2SAT 94–100; BMI 25.7; BMI 25.6
[2024-07-12] MEDS: POTASSIUM CHL 10 mEq IVPB 10 MEQ/100 ML BAG 50 MEQ IV ×3 (00:53→05:25)
[2024-07-12 01:43] LABS: Base Excess, Venous -3 (-3-3); O2 Saturation, Venous 77 % (96-97); PCO2, Venous 30 mmHg (36-56); PO2, Venous 34 mmHg (15-58); pH, Venous 7.45 (7.33-7.66)
[2024-07-12 02:20] LABS: Albumin, Serum 3.1 gm/dL (3.5-5.0); Anion Gap 12 (7-16); BUN/Creatinine Ratio 12 Ratio (12-20); Blood Urea Nitrogen 12 mg/dL (9-23); Calcium 7.6 mg/dL (8.3-10.6); Calcium (Corrected) 8.3 mg/dL (8.5-10.1); Carbon Dioxide 20.1 mMol/L (20.0-31.0); Chloride 105 mMol/L (98-107); Estimated Creatinine Clearance 82.2 mL/min (>60); Glucose 130 mg/dL (74-106); Magnesium 2.1 mg/dL (1.6-2.6); Osmolality,Calculated 275 (275-295); Potassium 3.3 mMol/L (3.4-5.1); Sodium 137 mMol/L (136-145); eGFR > 60 See Note
[2024-07-12 02:25] LABS: Phosphorous 0.8 mg/dL (2.4-5.1)
[2024-07-12] MEDS: POT PHOS 15 mMol in NS 250 ML 15 MMOL/250 ML BAG 62.5 MMOL IV (02:29)
[2024-07-12] MEDS: DEXTROSE 5%-LACTATED RINGERS 1,000 ML 250 ML IV (03:08)
[2024-07-12 05:49] LABS: Base Excess, Venous 0 (-3-3); O2 Saturation, Venous 83 % (96-97); PCO2, Venous 35 mmHg (36-56); PO2, Venous 41 mmHg (15-58); pH, Venous 7.44 (7.33-7.66)
[2024-07-12] MEDS: INSULIN GLARGINE (Lantus) 5 UNIT/0.05 ML (PER 5 UNITS) 20 UNIT SC ×2 (07:09→20:35)
[2024-07-12] MEDS: PANTOPRAZOLE INJ 40 MG VIAL IV (08:26)
[2024-07-12] MEDS: ENOXAPARIN SOD INJ 40 MG/0.4 ML SYRINGE SC (08:26)
[2024-07-12] MEDS: HYDROcodone/APAP 5/325 TABLET 1 TAB PO ×2 (08:56→17:28)
--- NOTE | 2024-07-12 09:23 | PD.RESPRO ---
Documentation for date of: 07/12/24 Subjective Subjective Interval history: Patient is a 29-year-old female with a past medical history of substance use disorder (cocaine), diabetes mellitus type 1 insulin-dependent (glargine 20 units twice daily), and hypothyroidism. Patient had recent hospitalization on 07/10/2024 overnight for DKA and left AGAINST MEDICAL ADVICE on the evening of 07/10/2024. Presented to the emergency room on 07/11/2024 via ambulance with a chief complaint of hyperglycemia and shortness of breath on 4 L of oxygen. Patient stated that shortly after leaving AGAINST MEDICAL ADVICE yesterday, patient consumed cocaine, patient is unable to quantify amount but stated it was a lot . Patient stated she has not taken insulin since leaving AGAINST MEDICAL ADVICE. Complaining of nausea, fatigue, and several episodes of emesis. ER Course: Vitals: 153/96, heart rate 128, respiratory rate 22, temperature 97.7, SpO2 100% on room air. Sodium 131, likely pseudohyponatremia given corrected sodium of 142 secondary to hyperglycemia. Hyperkalemia 5.4 hypochloremia, 96. Metabolic acidosis with bicarb of less than 10. Lactic acid of 5.6. Anion gap of 25. Hyperglycemia, 796. Hyperphosphatemia 7.7. LEONA, BUN 17, creatinine 1.8, GFR 38. Beta hydroxybutyrate 4.4. UA showing positive ketones plus glucose. U tox positive for opioids and cocaine. WBC count 26.2 VBG pH 6.8, pCO2 13, O2 88, excess base -30 07/11/2024: Admitted for DKA. 07/12/2024: No overnight events. Afebrile overnight. Patient complaining of generalized back pain. No flank pain tenderness. Insulin drip D/C. Transitioned patient to Glargine 20 units and sliding scale added. Low carb consistent diet. TSH within normal limits. Patient stated she is is not taking apripiprazole-per patient initially prescribed for anxiety, although this is not first line. Exam Vital Signs Temp Pulse Resp BP Pulse Ox O2 Del Method 97.8 F 72 20 128/82 96 Room Air 07/12/24 07:03 07/12/24 07:10 07/12/24 07:10 07/12/24 07:03 07/12/24 07:10 07/11/24 10:12 Narrative Exam General Appearance: Alert & Oriented X3, thin female who is in no acute distress HEENT: Skull symmetrical and atraumatic. Conjunctivae pin and moist. Pupils equal, round, reactive to light and accommodation (PERRL). External ear without lesion or discharge. Straight, nares patient, mucosa pink, no discharge. No thyroid nodule appreciated. No cervical lymphadenopathy. Cardio: Normal Rate and Rhythm with S1 and S2 heart sounds. No murmurs or extra heart sounds auscultated. No bruits on carotid auscultation. No peripheral edema or cyanosis. Lungs: Symmetric with good expansion. Chest and back mild-tenderness. Breath sounds vesicular without crackles, wheezing or rhonchi Abdomen: non-tender, Non-distended, Normal Reactive Bowel Sounds, supra-pubic tenderness-resolved. Neuro: Alert, cooperative, oriented to person, place, and time. Speech clear. CN grossly intact. Upper motor strength 5/5 and Lower motor strength 5/5. Sensation intact. Objective Labs 07/11/24 07:55 07/12/24 05:04 Labs: Laboratory Results - last 24 hr 07/11/24 07/11/24 07/11/24 09:05 12:50 16:25 VBG pH 6.86 L 6.93 L 7.29 L VBG pCO2 14 L 16 L 18 L VBG pO2 96 H 59 H D 43 VBG O2 Sat (Marcelo) 93 L 82 L 83 L VBG Base Excess -30 L -28 L -16 L Sodium 136 139 143 Potassium 5.1 5.1 3.3 L D Chloride 99 102 109 H Carbon Dioxide < 10.0 L* < 10.0 L* < 10.0 L* Anion Gap 27 H 27 H 24 H BUN 21 18 19 Creatinine 1.7 H 1.7 H 1.2 D Estim Creat Clear Calc 48.4 L 48.4 L 68.5 eGFR 41 L 41 L > 60 BUN/Creatinine Ratio 12 11 L 16 Glucose 783 H* 672 H* D 223 H D Calculated Osmolality 312 H 311 H 294 Lactic Acid 5.6 H* 4.1 H* 1.4 Calcium 8.1 L 8.5 7.3 L Corrected Calcium 8.1 L 8.5 7.9 L Phosphorus 7.9 H 6.3 H 1.0 L Magnesium 2.2 2.3 1.7 Albumin 4.0 D 4.5 3.3 L D Ur Collection Type Clean Catch Urine Color Lt-Yellow Urine Clarity Clear Urine pH 5.0 Ur Specific [place] 1.019 Urine Protein Negative Urine Glucose (UA) 4+ A Urine Ketones 4+ A Urine Blood Trace Urine Nitrite Negative Urine Bilirubin Negative Urine Urobilinogen (Auto) Negative Ur Leukocyte Esterase Negative Urine RBC < 1 Urine WBC < 1 Ur Squamous Epith Cells 0 Amorphous Crystals Present A Urine Bacteria Rare Urine Yeast (Budding) Present A 07/11/24 07/11/24 07/12/24 19:30 21:17 01:16 VBG pH 7.43 7.45 VBG pCO2 24 L 30 L VBG pO2 60 H 34 D VBG O2 Sat (Marcelo) 96 77 L VBG Base Excess -7 L -3 Sodium 136 137 Potassium 3.8 D 3.3 L D Chloride 106 105 Carbon Dioxide 16.4 L 20.1 Anion Gap 14 12 BUN 15 12 Creatinine 1.1 1.0 Estim Creat Clear Calc 74.8 82.2 eGFR > 60 > 60 BUN/Creatinine Ratio 14 12 Glucose 133 H D 130 H Calculated Osmolality 274 L 275 Lactic Acid 1.0 0.9 Calcium 7.8 L 7.6 L Corrected Calcium 8.5 8.3 L Phosphorus 1.0 L 0.8 L* Magnesium 2.0 2.1 Albumin 3.1 L 3.1 L Ur Collection Type Urine Color Urine Clarity Urine pH Ur Specific [place] Urine Protein Urine Glucose (UA) Urine Ketones Urine Blood Urine Nitrite Urine Bilirubin Urine Urobilinogen (Auto) Ur Leukocyte Esterase Urine RBC Urine WBC Ur Squamous Epith Cells Amorphous Crystals Urine Bacteria Urine Yeast (Budding) 07/12/24 05:04 VBG pH 7.44 VBG pCO2 35 L VBG pO2 41 VBG O2 Sat (Marcelo) 83 L VBG Base Excess 0 Sodium Potassium Chloride Carbon Dioxide Anion Gap BUN Creatinine Estim Creat Clear Calc eGFR BUN/Creatinine Ratio Glucose Calculated Osmolality Lactic Acid Calcium Corrected Calcium Phosphorus Magnesium Albumin Ur Collection Type Urine Color Urine Clarity Urine pH Ur Specific [place] Urine Protein Urine Glucose (UA) Urine Ketones Urine Blood Urine Nitrite Urine Bilirubin Urine Urobilinogen (Auto) Ur Leukocyte Esterase Urine RBC Urine WBC Ur Squamous Epith Cells Amorphous Crystals Urine Bacteria Urine Yeast (Budding) ABG Interpretation ABG results: 07/11/24 07/11/24 07/11/24 07:55 09:05 12:50 VBG pH 6.88 L 6.86 L 6.93 L VBG pCO2 13 L 14 L 16 L VBG pO2 88 H D 96 H 59 H D VBG Base Excess -30 L -30 L -28 L 07/11/24 07/11/24 07/12/24 16:25 21:17 01:16 VBG pH 7.29 L 7.43 7.45 VBG pCO2 18 L 24 L 30 L VBG pO2 43 60 H 34 D VBG Base Excess -16 L -7 L -3 07/12/24 05:04 VBG pH 7.44 VBG pCO2 35 L VBG pO2 41 VBG Base Excess 0 Quality Measures Quality Measures none Assessment & Plan Assessment Current Active Medications: Generic Name Dose Route Start Last Admin Trade Name Freq PRN Reason Stop Dose Admin Acetaminophen 650 mg 07/12/24 08:50 Acetaminophen 325 Mg Tablet PO 08/10/24 08:31 Q6H PRN Mild pain 1- 3 or Fever >100.3 Hydrocodone Bitart/Acetaminophen 1 tab 07/12/24 08:48 07/12/24 08:56 Hydrocodone/Apap 5/325 Tablet PO 07/17/24 08:47 1 tab Q8HR PRN Administration PAIN SCALE 4-10(Mod-Sev Dextrose 25 ml 07/11/24 08:32 Dextrose 50%-Water Inj 50 Ml Syringe IV [id number] PRN Blood Sugar - Low Dextrose 25 ml 07/12/24 08:10 Dextrose 50%-Water Inj 50 Ml Syringe IV 08/11/24 08:09 Q15MIN PRN BG 50-70 responsive npo pt Dextrose 50 ml 07/12/24 08:10 Dextrose 50%-Water Inj 50 Ml Syringe IV 08/11/24 08:09 Q15MIN PRN BG <50 OR BG <70 & pt unresponsive Enoxaparin Sodium 40 mg 07/12/24 09:00 07/12/24 08:26 Enoxaparin Sod Inj 40 Mg/0.4 Ml Syringe SC 07/26/24 08:59 40 mg QDAY TRUDI Administration Glucagon 1 mg 07/12/24 08:10 Glucagon Inj 1 Mg Vial IM Q15MIN PRN BG <70, and no IV access Hydroxyzine HCl 10 mg 07/11/24 08:49 Hydroxyzine Hcl 10 Mg Tablet PO 08/10/24 08:48 Q6HR PRN ITCHING Potassium Chloride 10 meq in 100 mls @ 100 mls/hr 07/11/24 08:32 Kcl Ivpb IV 08/10/24 08:31 .Q1H PRN IF POTASSIUM LESS THAN 3.3 Magnesium Sulfate 2 gm in 50 mls @ 25 mls/hr 07/11/24 08:32 07/11/24 20:18 Magnesium Sulfate Ivpb IV 08/10/24 08:31 25 mls/hr .Q2H PRN Administration PER DKA PROTOCOL Insulin Human Regular 100 unit 100 mls @ 7.258 mls/hr 07/11/24 08:32 07/12/24 08:00 / IV Miscellaneous Supplies IV 08/10/24 08:31 0 unit/kg/hr .[id number] PRN 0 mls/hr PER PROTOCOL Titration Protocol 0.1 UNIT/KG/HR Dextrose/Lactated Ringer's 1,000 mls @ 250 mls/hr 07/11/24 08:32 07/12/24 03:08 D5-Lr IV 08/10/24 08:31 250 mls/hr .Q4H PRN Administration PER PROTOCOL Potassium Chloride 20 meq/ 1,010 mls @ 250 mls/hr 07/11/24 08:32 07/11/24 18:28 Lactated Ringer's IV 08/10/24 08:31 0 mls/hr .Q4H3M PRN Infusion K LEVEL 3.3 TO 5.3mM/L Potassium Chloride 40 meq/ 1,020 mls @ 250 mls/hr 07/11/24 08:32 Lactated Ringer's IV 08/10/24 08:31 .Q4H5M PRN K LEVEL < 3.3 mM/L Potassium Chloride 40 meq/ 1,020 mls @ 250 mls/hr 07/11/24 08:32 Dextrose/Lactated Ringer's IV 08/10/24 08:31 .Q4H5M PRN K LEVEL < 3.3mM/L Potassium Chloride 10 meq in 100 mls @ 50 mls/hr 07/11/24 08:32 07/12/24 05:25 Kcl Ivpb IV 08/10/24 08:31 50 mls/hr PRN PRN Administration K LEVEL 3.3 to 5.3 & BG > 200 Potassium Phosphate 15 mmol in 250 mls @ 62.5 mls/hr 07/11/24 08:32 07/12/24 02:29 Pot Phos 15 Mmol In Ns 250 Ml IV 08/10/24 08:31 62.5 mls/hr PRN PRN Administration Phosphate <= 1mg/dL Sodium Phosphate 15 mmol/ 255 mls @ 62.5 mls/hr 07/11/24 08:32 Sodium Chloride IV 08/10/24 08:31 .Q4H5M PRN Phosphate <= 1mg/dL and K> than 5.3 Potassium Chloride 20 meq/ 1,010 mls @ 250 mls/hr 07/11/24 08:48 07/11/24 18:28 Dextrose/Lactated Ringer's IV 08/10/24 08:31 250 mls/hr .Q4H3M PRN Administration K LEVEL 3.3 TO 5.3 mM/L Insulin Glargine 20 unit 07/12/24 21:00 Insulin Glargine (Lantus) 5 Unit/0.05 Ml (Per 5 Units) SC 07/12/24 21:01 X1 ONE Insulin Glargine 20 unit 07/13/24 21:00 Insulin Glargine (Lantus) 5 Unit/0.05 Ml (Per 5 Units) DE 08/12/24 20:59 HS [facility] Insulin Human Lispro 0 unit 07/12/24 11:30 Insulin Lispro (Admelog) 1 Unit/0.01 Ml Unit SC 08/11/24 11:29 ACHS TRUDI Protocol Ondansetron HCl 4 mg 07/11/24 08:32 07/11/24 08:56 Ondansetron Inj 2 Mg/Ml Inj 2 Ml IV 08/10/24 08:31 4 mg Q6H PRN Administration NAUSEA OR VOMITING Protocol Pantoprazole Sodium 40 mg 07/11/24 09:00 07/12/24 08:26 Pantoprazole Inj 40 Mg Vial IV 08/10/24 08:59 40 mg QDAY TRUDI Administration Sennosides 1 tab 07/11/24 08:32 Senna Tablet PO 08/10/24 08:31 QDAY PRN constipation Protocol Sodium Bicarbonate 50 ml 07/11/24 08:32 07/11/24 14:09 Sodium Bicarb Inj 8.4% Syr 50 Ml Syringe IV 08/10/24 08:31 50 ml PRN PRN Administration For ph <= to 7.0 Plan Patient is a 29-year-old female with a past medical history of substance use disorder (cocaine), diabetes mellitus type 1 insulin-dependent (glargine 20 units twice daily), and hypothyroidism who was admitted on on 07/11/2024 directly into the ICU for DKA. Central Nervous System: Problem: Substance use disorder, cocaine DDX: Patient is alert and oriented x 3 Dx: U tox positive for cocaine RX: Hydroxyzine 10 mg p.o. every 6 hours as needed RRX: Consider Ativan 1 mg IV push x 1 Cardiovascular: Problem: Sinus tachycardia, asymptomatic, resolved. DDX: Likely secondary to cocaine use disorder with positive U tox in the setting of DKA and hypovolemia given poor oral intake Dx: RX: RRX: Avoid beta-blockers given positive cocaine use Respiratory: Problem: Tachypneic, resolved. DDX: Tachypneic likely in the setting of metabolic acidosis, with compensation-saturating well on room air. Dx: Chest [id number] for pneumothorax or pneumonia RX: VBG's per DKA protocol RRX: Consider nasal cannula Gastroenterology: Problem: Stable DDX: Dx: RX: RRX: Renal: Problem: LEONA, improved DDX: LEONA on admission with a BUN of 17, creatinine 1.8 and BUN and creatinine ratio of 9, GFR 38. This is an increase in creatinine greater than 0.3 given previous creatinine on 07/10/2024 1.2. Likely prerenal in the setting of poor oral intake and emesis secondary to DKA. Given previous admission with DKA and LEONA, patient needs to follow up with PCP to monitor for diabetic nephropathy. Recommended urine microalbumin as outpatient. Obstructive AKA cannot be ruled out as urinary retention present with 2 L of urine removed during straight cath. Dx: BUN 17, creatinine 1.8 BUN/creatinine ratio 9 (07/11/2024) RX: Avoid nephrotoxins, renally dose medication, renal panels per DKA protocols, lactated ringer to 250 cc per protocol for DKA RRX: Patient needs monitor for signs of diabetic nephropathy, please follow up with PCP for urine albumin to creatinine ratio. Problem #Metabolic acidosis, resolved. DDx: Metabolic acidosis in the setting of DKA and lactic acid Dx: Lactic acid 5.6, bicarb less than 10, beta hydroxybutyrate 4.4, UA positive ketones plus glucose Rx: Treat underlying condition, DKA protocols Rxx: Problem #Hypocalcemia DDx: Likely in the setting of fluid resuscitation and low albumin. Dx: Rx: continue to monitor Rxx: consider PTH and Vitamin D levels. may benefit from Calcium supplements. #Pseudohyponatremia, resolved. Pseudohyponatremia in the setting of hyperglycemia. On admission sodium 131--> corrected sodium 142 Continue to monitor Heme: Problem: Leukocytosis, improving DDX: Reactive leukocytosis in the setting of DKA Dx: Chest x-ray negative, UA negative for nitrites, negative esterase, and negative WBC <1. RX: RRX: Monitor for fevers or signs of infection Endo: Problem: diabetes mellitus type 1, nonadherent, DKA, hyperglycemia, DDX: DKA in the setting of nonadherence with a past medical history of diabetes mellitus type 1. Patient left AMA on 07/10/2024 despite requiring insulin. Patient is noncompliant with glargine 20 units twice daily at home. Dx: Anion gap 25 bicarb less than 10, beta hydroxybutyrate 4.4, VBG pH 6.88 UA positive for ketones positive for glucose. A1c (07/10/2024): >14.0 RX: Insulin Drip D/C-->Transition patient to subq insulin. Glargine 20 units Qday then Glargine 20 units HS starting 07/13/2024. Sliding Scale ACHS RRX:monitor totoal sliding scale Problem: history of hypothyroidism, stable DDx: no TSH on file, possible use of levothyroxine as home medication Dx: TSH within normal limits with AM labs, 1.67 (07/12/2024). Rx: RRx: ID: Problem: SIRS criteria, resolved. DDX: SIRS criteria in the setting of DKA less likely infectious Dx: Chest x-ray negative UA negative. RX: Continue to monitor RRX: Health Maintenance: Disp: Pt is currently admitted to floors for further management of DKA, downgrade to floors for continuos monitor of medication regimen. FEN: Low carb consistent diet DVT: Lovenox GI: Prontonix 40 mg IV Qday Lines: R. IJV Bladder Scan Q4 hrs, Ins & Out Code: Full Code - The patient's plan was discussed with attending Dr. Selin Rogers MD PGY1 Internal Medicine
[2024-07-12 09:58] LABS: Albumin, Serum 3.1 gm/dL (3.5-5.0); Anion Gap 12 (7-16); BUN/Creatinine Ratio 8 Ratio (12-20); Blood Urea Nitrogen 7 mg/dL (9-23); Calcium 7.4 mg/dL (8.3-10.6); Calcium (Corrected) 8.1 mg/dL (8.5-10.1); Carbon Dioxide 20.6 mMol/L (20.0-31.0); Cardiac Risk Estimate 2.1 RATIO (3.7-5.6); Chloride 106 mMol/L (98-107); Cholesterol 111 mg/dL (132-200); Creatinine (Component) 0.9 mg/dL (0.6-1.3); Estimated Creatinine Clearance 91.4 mL/min (>60); Glucose 132 mg/dL (74-106); HDL Cholesterol 52 mg/dL (40-60); LDL Cholesterol,Calculated 41 mg/dL (0-130); Magnesium 1.8 mg/dL (1.6-2.6); Osmolality,Calculated 277 (275-295); Phosphorous 1.6 mg/dL (2.4-5.1); Potassium 3.1 mMol/L (3.4-5.1); Sodium 139 mMol/L (136-145); Thyroid Stimulating Hormone 1.67 uIU/mL (0.55-4.78); Triglycerides 92 mg/dL (30-150); eGFR > 60 See Note
[2024-07-12] MEDS: POTASSIUM CHLORIDE 10% 20 MEQ/15 ML UDC 40 MEQ PO (11:31)
[2024-07-12] MEDS: NAPH,KPH MBDB 1 PACKET (1.5 GM) PO (11:31)
[2024-07-12] MEDS: POTASSIUM CHLORIDE 10% 20 MEQ/15 ML UDC PO (11:31)
[2024-07-12] MEDS: INSULIN LISPRO (AdmeLOG) 1 UNIT/0.01 ML UNIT SC ×3 (11:41→20:35)
--- NOTE | 2024-07-12 13:08 | ESPR_ITS ---
Documentation for date of: 07/12/24 Subjective Subjective Interval history: Patient is a 29-year-old female with past medical history of DM1, hypothyroidism, and substance abuse disorder who was admitted to the ICU on 07/11/2024 for DKA. Patient initially came in with anion gap of 27 and bicarb less than 10 with blood glucose of 672. At this time patient was admitted in the ICU and was placed on DKA protocol. Since then patient was transition to insulin glargine 20 units and sliding scale and has been tolerating diet well. Patient's anion gap has also close and therefore was downgraded to the medical floors on 07/12/2024. Patient was seen and examined at bedside this afternoon and she stated that she only had some complaints of pain for which she is on some pain control medications as needed. No other complaints at this time. Exam Vital Signs Temp Pulse Resp BP Pulse Ox O2 Del Method 98.7 F 83 18 130/86 H 100 Room Air 07/12/24 12:00 07/12/24 12:00 07/12/24 12:00 07/12/24 12:00 07/12/24 12:07/11/24 10:12 Narrative Exam General: A/O x3, mild distress Eyes: PERRL, EOMI. Anicteric, vision grossly intact. Ears: No ear pain, no ear discharge, Hearing grossly intact. Nose: No nasal discharge. Mouth/Throat: Moist mucous membranes, no redness, no lesions. Neck: Neck supple, non-tender, no cervical lymphadenopathy. Lungs: Clear ALFONSO to auscultation and percussion, No accessory muscle use. Cardio: Normal S1/S2, regular rhythm, no murmurs, no JVD Abdomen: Soft, generalized tenderness, no palpable masses, peristalsis present, no guarding or rebound. Extremities: Symmetrical, no significant deformities, no peripheral edema , non-tender, peripheral pulses presents. Skin: No rashes, no lesions, warm to touch. Neuro: No focal neurological deficits. motor and sensory intact. Objective Labs 07/11/24 07:55 07/12/24 05:04 Labs: Laboratory Results - last 24 hr 07/11/24 07/11/24 07/11/24 09:05 12:50 16:25 VBG pH 6.86 L 6.93 L 7.29 L VBG pCO2 14 L 16 L 18 L VBG pO2 96 H 59 H D 43 VBG O2 Sat (Marcelo) 93 L 82 L 83 L VBG Base Excess -30 L -28 L -16 L Sodium 136 139 143 Potassium 5.1 5.1 3.3 L D Chloride 99 102 109 H Carbon Dioxide < 10.0 L* < 10.0 L* < 10.0 L* Anion Gap 27 H 27 H 24 H BUN 21 18 19 Creatinine 1.7 H 1.7 H 1.2 D Estim Creat Clear Calc 48.4 L 48.4 L 68.5 eGFR 41 L 41 L > 60 BUN/Creatinine Ratio 12 11 L 16 Glucose 783 H* 672 H* D 223 H D Calculated Osmolality 312 H 311 H 294 Lactic Acid 5.6 H* 4.1 H* 1.4 Calcium 8.1 L 8.5 7.3 L Corrected Calcium 8.1 L 8.5 7.9 L Phosphorus 7.9 H 6.3 H 1.0 L Magnesium 2.2 2.3 1.7 Albumin 4.0 D 4.5 3.3 L D Triglycerides Cholesterol LDL Cholesterol, Calc HDL Cholesterol Cholesterol/HDL Ratio TSH Ur Collection Type Clean Catch Urine Color Lt-Yellow Urine Clarity Clear Urine pH 5.0 Ur Specific [place] 1.019 Urine Protein Negative Urine Glucose (UA) 4+ A Urine Ketones 4+ A Urine Blood Trace Urine Nitrite Negative Urine Bilirubin Negative Urine Urobilinogen (Auto) Negative Ur Leukocyte Esterase Negative Urine RBC < 1 Urine WBC < 1 Ur Squamous Epith Cells 0 Amorphous Crystals Present A Urine Bacteria Rare Urine Yeast (Budding) Present A 07/11/24 07/11/24 07/12/24 19:30 21:17 01:16 VBG pH 7.43 7.45 VBG pCO2 24 L 30 L VBG pO2 60 H 34 D VBG O2 Sat (Marcelo) 96 77 L VBG Base Excess -7 L -3 Sodium 136 137 Potassium 3.8 D 3.3 L D Chloride 106 105 Carbon Dioxide 16.4 L 20.1 Anion Gap 14 12 BUN 15 12 Creatinine 1.1 1.0 Estim Creat Clear Calc 74.8 82.2 eGFR > 60 > 60 BUN/Creatinine Ratio 14 12 Glucose 133 H D 130 H Calculated Osmolality 274 L 275 Lactic Acid 1.0 0.9 Calcium 7.8 L 7.6 L Corrected Calcium 8.5 8.3 L Phosphorus 1.0 L 0.8 L* Magnesium 2.0 2.1 Albumin 3.1 L 3.1 L Triglycerides Cholesterol LDL Cholesterol, Calc HDL Cholesterol Cholesterol/HDL Ratio TSH Ur Collection Type Urine Color Urine Clarity Urine pH Ur Specific [place] Urine Protein Urine Glucose (UA) Urine Ketones Urine Blood Urine Nitrite Urine Bilirubin Urine Urobilinogen (Auto) Ur Leukocyte Esterase Urine RBC Urine WBC Ur Squamous Epith Cells Amorphous Crystals Urine Bacteria Urine Yeast (Budding) 07/12/24 05:04 VBG pH 7.44 VBG pCO2 35 L VBG pO2 41 VBG O2 Sat (Marcelo) 83 L VBG Base Excess 0 Sodium 139 Potassium 3.1 L Chloride 106 Carbon Dioxide 20.6 Anion Gap 12 BUN 7 L Creatinine 0.9 Estim Creat Clear Calc 91.4 eGFR > 60 BUN/Creatinine Ratio 8 L Glucose 132 H Calculated Osmolality 277 Lactic Acid Calcium 7.4 L Corrected Calcium 8.1 L Phosphorus 1.6 L Magnesium 1.8 Albumin 3.1 L Triglycerides 92 Cholesterol 111 L LDL Cholesterol, Calc 41 HDL Cholesterol 52 Cholesterol/HDL Ratio 2.1 L TSH 1.67 Ur Collection Type Urine Color Urine Clarity Urine pH Ur Specific [place] Urine Protein Urine Glucose (UA) Urine Ketones Urine Blood Urine Nitrite Urine Bilirubin Urine Urobilinogen (Auto) Ur Leukocyte Esterase Urine RBC Urine WBC Ur Squamous Epith Cells Amorphous Crystals Urine Bacteria Urine Yeast (Budding) ABG Interpretation ABG results: 07/11/24 07/11/24 07/11/24 07:55 09:05 12:50 VBG pH 6.88 L 6.86 L 6.93 L VBG pCO2 13 L 14 L 16 L VBG pO2 88 H D 96 H 59 H D VBG Base Excess -30 L -30 L -28 L 07/11/24 07/11/24 07/12/24 16:25 21:17 01:16 VBG pH 7.29 L 7.43 7.45 VBG pCO2 18 L 24 L 30 L VBG pO2 43 60 H 34 D VBG Base Excess -16 L -7 L -3 07/12/24 05:04 VBG pH 7.44 VBG pCO2 35 L VBG pO2 41 VBG Base Excess 0 Quality Measures Quality Measures none Assessment & Plan Assessment Current Active Medications: Generic Name Dose Route Start Last Admin Trade Name Freq PRN Reason Stop Dose Admin Acetaminophen 650 mg 07/12/24 08:50 Acetaminophen 325 Mg Tablet PO 08/10/24 08:31 Q6H PRN Mild pain 1- 3 or Fever >100.3 Hydrocodone Bitart/Acetaminophen 1 tab 07/12/24 08:48 07/12/24 08:56 Hydrocodone/Apap 5/325 Tablet PO 07/17/24 08:47 1 tab Q8HR PRN Administration PAIN SCALE 4-10(Mod-Sev Dextrose 25 ml 07/11/24 08:32 Dextrose 50%-Water Inj 50 Ml Syringe IV PRNMRX1 PRN Blood Sugar - Low Dextrose 25 ml 07/12/24 08:10 Dextrose 50%-Water Inj 50 Ml Syringe IV 08/11/24 08:09 Q15MIN PRN BG 50-70 responsive npo pt Dextrose 50 ml 07/12/24 08:10 Dextrose 50%-Water Inj 50 Ml Syringe IV 08/11/24 08:09 Q15MIN PRN BG <50 OR BG <70 & pt unresponsive Enoxaparin Sodium 40 mg 07/12/24 09:00 07/12/24 08:26 Enoxaparin Sod Inj 40 Mg/0.4 Ml Syringe SC 07/26/24 08:59 40 mg QDAY TRUDI Administration Glucagon 1 mg 07/12/24 08:10 Glucagon Inj 1 Mg Vial IM Q15MIN PRN BG <70, and no IV access Hydroxyzine HCl 10 mg 07/11/24 08:49 Hydroxyzine Hcl 10 Mg Tablet PO 08/10/24 08:48 Q6HR PRN ITCHING Insulin Glargine 20 unit 07/12/24 21:00 Insulin Glargine (Lantus) 5 Unit/0.05 Ml (Per 5 Units) SC 07/12/24 21:01 X1 ONE Insulin Glargine 20 unit 07/13/24 21:00 Insulin Glargine (Lantus) 5 Unit/0.05 Ml (Per 5 Units) SC 08/12/24 20:59 HS TRUDI Insulin Human Lispro 0 unit 07/12/24 11:30 07/12/24 11:41 Insulin Lispro (Admelog) 1 Unit/0.01 Ml Unit SC 08/11/24 11:29 4 unit ACHS TRUDI Administration Protocol Ondansetron HCl 4 mg 07/11/24 08:32 07/11/24 08:56 Ondansetron Inj 2 Mg/Ml Inj 2 Ml IV 08/10/24 08:31 4 mg Q6H PRN Administration NAUSEA OR VOMITING Protocol Pantoprazole Sodium 40 mg 07/11/24 09:00 07/12/24 08:26 Pantoprazole Inj 40 Mg Vial IV 08/10/24 08:59 40 mg QDAY TRUDI Administration Sennosides 1 tab 07/11/24 08:32 Senna Tablet PO 08/10/24 08:31 QDAY PRN constipation Protocol Plan 29-year-old female with past medical history of DM1, hypothyroidism, and substance abuse disorder who was admitted to the ICU on 07/11/2024 for DKA. Downgraded to medical floors on 07/12/2024. #Hx of DM1 #DKA, resolved #Leukocytosis Patient was admitted to the ICU initially for DKA and was placed on DKA protocol Patient send gap is closed twice already therefore she was downgraded to medical floors Patient had leukocytosis since admission which was more likely reactive due to DKA, and is currently downtrending and no fevers. A1c greater than 14 on 07/10/2024. Plan: Glargine 20 units at bedtime ISS Hypoglycemia protocol ordered Will continue to monitor #Normocytic normochromic anemia Patient came in with hemoglobin of 13.6 Hemoglobin today is 8.7 Most likely hemodilutional given on aggressive IV fluid administration due to DKA protocol No active signs of bleeding Plan: Will transfuse hemoglobin less than 7 #Electrolyte imbalance #Hypokalemia #Hypophosphatemia Patient's potassium was 3.1 and Phos 1.6 today Plan: Neutra-Phos x 1 and potassium repleted with 60 mg x 1 today Will replete as necessary #Hx of hypothyroidism Patient's TSH on this admission was 1.67 Plan: Will restart patient's home levothyroxine 88 mcg #Substance use disorder Patient was positive for cocaine #Hx of anxiety Will restart home Citalopram 20mg qday #LEONA, resolved #High anion gap metabolic acidosis, resolved Disposition: Patient downgraded to medical floors today Diet: carb low GI prophylaxis: protonix DVT prophylaxis: lovenox Code:Full Case disclosed with Attending Dr. Lee Nuñez PGY1 Attending Provider Attestation/Addendum I reviewed labs, imaging, EKG, home medications and prior available records. Face to face evaluation was performed by me. I have personally examined the patient and discussed assessment and plan with the IM team. I reviewed the resident note and agree with the plan with exceptions as below. Insulin-dependent diabetes mellitus DKA Cocaine abuse History of marijuana abuse History of methamphetamine abuse Anxiety disorder Hypothyroidism Hypokalemia Hypocalcemia Anion gap closed. She is now downgraded from ICU. Resumed subcutaneous insulin. Monitor fingersticks Counseled the patient regarding the importance of medication compliance Counseled the patient regarding the importance of avoiding cocaine and other illicit drugs. She is interested in quitting. Will discussed with geriatric social worker for resources Replete electrolytes as needed and monitor levels Resumed home aripiprazole and citalopram Resumed home levothyroxine
--- NOTE | 2024-07-12 14:41 | PC.NURSE ---
Unable to complete home medications. Per pt she is unable to recall her medications and does not have a list of them.
[2024-07-12] MEDS: hydrOXYzine HCL 10 MG TABLET PO (14:52)
--- NOTE | 2024-07-12 16:42 | PC.SS ---
ASSISTANT ACCOUNT EXECUTIVE conducted bedside contact with the patient conduct initial assessment and to discuss discharge planning.? Patient confirmed demographic information.? Patient resides at home with partner, Jere Schreiber .? Patient does not utilize any form of DME to assist with ambulation.? Patient does not utilize home oxygen.? Patient describes the ability to complete ADL?s independently.? Patient identified partner, Jere Schreiber; as medical surrogate decision maker.? Patient?s PCP is YESENIA Booker.? Patient does not participate with dialysis.? Patient does not possess any specialty providers.? Patient possesses history of diabetes, insulin dependent.? Patient utilizes [facility] for medication services.? Plan is for the patient to return home at the time of discharge.? Family will provide transportation on behalf of the patient. ?No further discharge needs identified by the patient.? No further intervention required at this time, mental health social worker will be available to address any further concerns.? Next of Kin: Jere Schreiber D/C Plan: Home
--- NOTE | 2024-07-12 17:55 | PC.NURSE ---
Report given to FLOR Guadarrama at this time
--- NOTE | 2024-07-12 18:23 | PC.NURSE ---
Patient transferred to room 354 with FLOR Guadarrama @[id number].
[2024-07-13] VITALS (9 sets, daily range): BP systolic 121–123; BP diastolic 77–92; PULSE 70–82; RESP 16–98; TEMP 36.3–36.9; O2SAT 97–100
[2024-07-13] MEDS: HYDROcodone/APAP 5/325 TABLET 1 TAB PO ×2 (01:28→10:01)
[2024-07-13] MEDS: LEVOTHYROXINE SODIUM 88 MCG TABLET PO (05:43)
[2024-07-13 06:20] LABS: Alanine Aminotransferase 12 U/L (10-49); Albumin, Serum 2.8 gm/dL (3.5-5.0); Albumin/Globulin Ratio 1.6 (1.2-2.2); Alkaline Phosphatase 90 U/L (46-116); Anion Gap 7 (7-16); Aspartate Amino Transferase 24 U/L (0-34); BUN/Creatinine Ratio 9 Ratio (12-20); Bilirubin,Total 0.3 mg/dL (0.3-1.2); Blood Urea Nitrogen 6 mg/dL (9-23); Calcium 7.5 mg/dL (8.3-10.6); Calcium (Corrected) 8.5 mg/dL (8.5-10.1); Chloride 106 mMol/L (98-107); Creatinine (Component) 0.7 mg/dL (0.6-1.3); Estimated Creatinine Clearance 117.5 mL/min (>60); Globulin 1.7 gm/dL (2.3-3.5); Glucose 56 mg/dL (74-106); Magnesium 1.8 mg/dL (1.6-2.6); Osmolality,Calculated 280 (275-295); Phosphorous 1.3 mg/dL (2.4-5.1); Sodium 143 mMol/L (136-145); Total Protein 4.5 gm/dL (5.7-8.2); eGFR > 60 See Note
[2024-07-13 06:32] LABS: Potassium 2.6 mMol/L (3.4-5.1)
[2024-07-13] MEDS: NAPH,KPH MBDB 1 PACKET (1.5 GM) PO (08:13)
[2024-07-13] MEDS: POTASSIUM CHL 10 mEq IVPB 10 MEQ/100 ML BAG 100 MEQ IV ×2 (08:14→10:02)
[2024-07-13] MEDS: Magnesium Sulfate 2 GM Ivpb 2 GM/50 ML BAG IV (08:15)
[2024-07-13] MEDS: ENOXAPARIN SOD INJ 40 MG/0.4 ML SYRINGE SC (08:15)
[2024-07-13] MEDS: CITALOPRAM 20 MG TABLET PO (08:16)
[2024-07-13] MEDS: POTASSIUM CHLORIDE 20 mEq TABCR 40 MEQ PO (08:16)
[2024-07-13] MEDS: PANTOPRAZOLE INJ 40 MG VIAL IV (08:16)
--- NOTE | 2024-07-13 09:19 | PC.SS ---
SS follow up note: Patient is an ICU down grade, on IV Fluids. HMG being monitored. Patient will return back home once medically cleared.
[2024-07-13 10:41] LABS: Lipase 119 U/L (12-53)
[2024-07-13] MEDS: INSULIN LISPRO (AdmeLOG) 1 UNIT/0.01 ML UNIT SC (12:00)
--- NOTE | 2024-07-13 12:02 | ESDS_ITS ---
Planned Discharge Date 07/13/24 DS: Providers Provider Date of admission: 07/11/24 08:32 Primary care physician: Physician No Primary/Family Admitting Provider: Royer Cohn MD Attending Provider on Admission: Lisseth Early MD Attending Provider on DC: Lisseth Early MD Discharging Provider: Lisseth Early MD DS: Diagnosis Problem List Completed Was Problem List Reviewed/Reconciled?: Yes Hospital Course Hospital Course Hospital course: 29-year-old female with past medical history of DM1, hypothyroidism, and substance abuse disorder who was admitted to the ICU on 07/11/2024 for DKA. Patient initially came in with anion gap of 27 and bicarb less than 10 with blood glucose of 672. At this time patient was admitted in the ICU and was placed on DKA protocol. Since then patient was transition to insulin glargine 20 units and sliding scale and has been tolerating diet well. Patient's anion gap has also close and therefore was downgraded to the medical floors on 07/12/2024. Throughout hospital stay patient remained stable and was able to tolerate diet well. She was complaining some abdominal pain, but lipase was only 119 therefore recommended to come back to the ED if abdominal pain worsen. Patient's potassium was also low on the day of discharge it was repleted and on repeat was back to normal limits. At the time of discharge patient was stable enough to be discharged home. Discharge plan: Please follow your primary care physician within 7 days upon discharge Your insulin glargine has been changed to 20 units at night Please continue taking insulin sliding scale Please continue taking all home medications as prescribed. Recommend strongly to abstain from illicit drugs. Please come back to the ED if abdominal pain worsens or if symptoms of DKA recur. Insulin sliding scale instructions as follows: Blood glucose Insulin units 131-180 2 units 181-240 4 units 241-300 6 units 301-350 8 units 351-400 10 units 400+ 12 units and call your primary care physician Problem list: #Hx of DM1 #DKA, resolved #Leukocytosis #Normocytic normochromic anemia #Electrolyte imbalance #Hypokalemia #Hypophosphatemia #Hx of hypothyroidism #Substance use disorder #Hx of anxiety #LEONA, resolved #High anion gap metabolic acidosis, resolved Case disclosed with Attending Dr. Bismike Nuñez PGY1 Status at Discharge Overall status at discharge: patient is progressing back to baseline Time Spent with Patient Time attestation: Total time spent providing and/or coordinating discharge services:>35 min Time spent: Greater than 30 minutes Exam Vital Signs Temp Pulse Resp BP Pulse Ox O2 Del Method 97.6 F 71 17 121/82 98 Room Air 07/13/24 07:53 07/13/24 07:53 07/13/24 07:53 07/13/24 07:53 07/13/24 07:53 07/13/24 07:53 Narrative Exam General: A/O x3, mild distress Eyes: PERRL, EOMI. Anicteric, vision grossly intact. Ears: No ear pain, no ear discharge, Hearing grossly intact. Nose: No nasal discharge. Mouth/Throat: Moist mucous membranes, no redness, no lesions. Neck: Neck supple, non-tender, no cervical lymphadenopathy. Lungs: Clear ALFONSO to auscultation and percussion, No accessory muscle use. Cardio: Normal S1/S2, regular rhythm, no murmurs, no JVD Abdomen: Soft, generalized tenderness improving, no palpable masses, peristalsis present, no guarding or rebound. Extremities: Symmetrical, no significant deformities, no peripheral edema , non-tender, peripheral pulses presents. Skin: No rashes, no lesions, warm to touch. Neuro: No focal neurological deficits. motor and sensory intact. Discharge Plan Plan Patient Disposition: HOME (Self Care) Care Plan Goals: Please follow your primary care physician within 7 days upon discharge Your insulin glargine has been changed to 20 units at night Please continue taking insulin sliding scale Please continue taking all home medications as prescribed. Recommend strongly to abstain from illicit drugs. Please come back to the ED if abdominal pain worsens or if symptoms of DKA recur. Insulin sliding scale instructions as follows: Blood glucose Insulin units 131-180 2 units 181-240 4 units 241-300 6 units 301-350 8 units 351-400 10 units 400+ 12 units and call your primary care physician Prescriptions/Referrals Prescriptions/Med Rec: New insulin glargine 100 unit/mL (3 mL) insulin pen 20 unit subcut HS Qty: 15 0RF insulin lispro [Admelog SoloStar U-100 Insulin] 100 unit/mL insulin pen 1 sliding scale dose subcut USEASDIRECTD Qty: 15 0RF (DME) FreeStyle Sofy 3 Plus Sensor Device See Rx Instructions .Route Qty: 1 0RF Rx Instructions: As directed (DME) FreeStyle Sofy 3 [place] Misc See Rx Instructions .Route Qty: 1 0RF Rx Instructions: As directed E-Celz-Fosdbzy 250 mg tablet 1 tab PO BID Qty: 4 0RF Continued (DME) Accu-Chek SmartView Test Strip Strip See Rx Instructions .Route Qty: 100 5RF Rx Instructions: As directed levothyroxine [Synthroid] 88 MCG tablet 88 mcg PO QDAY 30 Days Qty: 30 3RF (DME) blood-glucose meter [FreeStyle Calvert Lite] Kit See Rx Instructions .Route Qty: 1 0RF Rx Instructions: As directed (DME) pen needle, diabetic [Comfort EZ Pen [place]] 29 gauge x 1/2 needle See Rx Instructions .Route Qty: 100 0RF Rx Instructions: As directed aripiprazole 10 mg tablet 10 mg PO QDAY 9 Days Qty: 9 0RF (DME) pen needle, diabetic 32 gauge x 1/4 needle See Rx Instructions .Route Qty: 100 0RF Rx Instructions: As directed (DME) lancets [FreeStyle Lancets] 28 gauge Misc Qty: 100 0RF Rx Instructions: Test BID (DME) lancet-gluc obvrz-agilyx-zkbyv Kit See Rx Instructions .Route Qty: 1 5RF Rx Instructions: As directed acetaminophen [Tylenol] 325 mg tablet 650 mg PO Q6H PRN (Reason: fever or pain) Qty: 30 0RF buprenorphine-naloxone 12-3 mg film BUCCAL Patient Comments: dissolve 1 FILM under the tongue once daily Discontinued insulin glargine [Lantus U-100 Insulin] 100 unit/mL solution 20 unit subcut BID Qty: 10 0RF insulin aspart U-100 [Novolog FlexPen U-100 Insulin] 100 unit/mL (3 mL) insulin pen 8 unit SUBCUT AC Qty: 15 0RF Referrals: No Primary/Family,Physician [Primary Care Provider] - Patient/Caregiver Discharge Instructions Other Discharge Activity Instructions:: Please follow your primary care physician within 7 days upon discharge Please repeat your renal panel within 1 week with your PCP Please take the K-Phos tablets twice daily for two days. Your insulin glargine has been changed to 20 units at night Please continue taking insulin sliding scale Please continue taking all home medications as prescribed. Recommend strongly to abstain from illicit drugs. Please come back to the ED if symptoms persist or worsen. Insulin sliding scale instructions as follows: Blood glucose Insulin units 131-180 2 units 181-240 4 units 241-300 6 units 301-350 8 units 351-400 10 units 400+ 12 units and call your primary care physician Education Materials: Diabetes Carbs Fats Protein, Diabetic Ketoacidosis Print Language: Upper Sorbian Stand Alone Forms: Kourtney Award Info., Patient Portal Info Letter Discharge Order Discharge Orders: Discharge (Routine); Ordered 07/13/24 Ordered By: Tova Cherry Quality Discharge Quality Measures VTE prophylaxis MD Attestestation MD Attestation I attest that I was physically present for the evaluation, physical examination, lab and imaging review of the patient with the residents. I discussed the case with the residents and agree with the findings and plans of care as documented above. Lisseth Early MD
[2024-07-13 12:18] LABS: Albumin, Serum 2.9 gm/dL (3.5-5.0); Anion Gap 6 (7-16); BUN/Creatinine Ratio 7 Ratio (12-20); Blood Urea Nitrogen 5 mg/dL (9-23); Calcium 7.3 mg/dL (8.3-10.6); Calcium (Corrected) 8.2 mg/dL (8.5-10.1); Carbon Dioxide 28.3 mMol/L (20.0-31.0); Chloride 102 mMol/L (98-107); Creatinine (Component) 0.7 mg/dL (0.6-1.3); Estimated Creatinine Clearance 117.5 mL/min (>60); Glucose 211 mg/dL (74-106); Magnesium 2.2 mg/dL (1.6-2.6); Osmolality,Calculated 275 (275-295); Phosphorous 1.3 mg/dL (2.4-5.1); Potassium 3.5 mMol/L (3.4-5.1); Sodium 136 mMol/L (136-145); eGFR > 60 See Note
--- NOTE | 2024-07-13 13:40 | PC.CC ---
RAOUL approved for oneDrume 3 Plus sensor. S/W [facility] who advised they are no longer able to fill it due to bankruptcy procedures. S/W patient at bedside who requested Rx be sent to [facility]. Patient stated her phone isn't charged and she is unsure if it will be compatible with the sensor. Advised patient a request will be made to for reader. S/W Dr. Cherry and [facility] EMR updated with [facility] as preferred.
== END 2024-07-13 16:53 | disposition home or self-care (01) | DRG 420 ==
LOC: SERX 08:39 → SERHOLD 08:46 → S2SX 16:43 → S3NX 07-12 18:09
PROVIDERS: Admitting Provider Internal Medicine; Emergency Provider Emergency Medicine; Visit Provider Student in an Organized Health Care Education/Training Program
DX: E10.10 Type 1 diabetes mellitus with ketoacidosis without coma (principal); E03.9 Hypothyroidism, unspecified; F14.129 Cocaine abuse with intoxication, unspecified; N17.9 Acute kidney failure, unspecified; D64.9 Anemia, unspecified; D72.829 Elevated white blood cell count, unspecified; E83.39 Other disorders of phosphorus metabolism; E83.51 Hypocalcemia; E87.5 Hyperkalemia; E87.6 Hypokalemia; H57.04 Mydriasis; E87.8 Other disorders of electrolyte and fluid balance, not elsewhere classified; F17.200 Nicotine dependence, unspecified, uncomplicated; F41.9 Anxiety disorder, unspecified; I10 Essential (primary) hypertension; F14.10 Cocaine abuse, uncomplicated; Z91.148 Patient's other noncompliance with medication regimen for other reason
CPT/HCPCS: 36415; 80053; 80061; 80069; 81001; 82010; 82803; 83605; 83690; 83735; 84100; 84443; 85025; 87040; 87081; 96374; 99291; J1650; J1815; J2405; J2470; J3475; J3480; J7030; J7120; J7121; J7999; A9270

== ENCOUNTER 2024-08-17 02:25 | Inpatient (IN) | payer MEDICAID, SELFPAY ==
[2024-08-17] VITALS (29 sets, daily range): BP systolic 106–156; BP diastolic 64–103; PULSE 76–117; RESP 16–22; TEMP 36.6–37.4; O2SAT 93–100; BMI 24.3; BMI 24.2
--- NOTE | 2024-08-17 02:28 | PD.EDNV ---
Nausea/Vomit./Diarrhea-RME/HPI General Stated complaint: DIABETIC EMERGENCY Arrival date/time: 08/17/24 02:25 RME / HPI RME / HPI Narrative: This section includes all my notes and documentations, including HPI, PE, and ED course. Clint Curiel MD HPI: 29yo female with a history of DMI BIBA from home presents to the ED for complaints of nausea and vomiting. ROS: All negative except as documented in HPI. Physical Exam: General: Alert and oriented. No acute distress when remaining still. Eyes: Conjunctivae and lids clear. ENT: No nasal congestion. Neck: Supple. Heart: RRR. Lungs: No respiratory distress. Good air movement. No rhonchi, wheezing, rales. Abdomen: Soft and nontender. Normal bowel sounds. No distension. No rebound or guarding. Back: No CVA tenderness. Skin: Warm and dry. Neuro: Alert and oriented X 3. I reviewed EMS and half-way notes. I reviewed all diagnostic test results. My interpretation of the EKG is My interpretation of the chest x-ray is My review of the CT report is Blood tests and urine tests At this point, diagnoses include Treatment here included Significant improvement Not yet done: I discussed the case with our hospitalist. About the presentation and exam and diagnostics and treatments here. And need of further care in the hospital. Will accept the patient. Not yet done: Based on my best medical judgment, made decision no further evaluation or treatment indicated at this time. Patient understands and agrees to the discharge instructions customized and printed, see below. Clint Curiel MD Review of Systems Review of Systems Systems Reviewed: All systems reviewed, normal except as documented ED Exam Narrative Physical exam: As noted in HPI. Course Quality Measures none Nausea/Vomiting/Diarrhea Patient data External records reviewed:: [facility] previous records (Per chart review, patient has no previous ED visits or admissions to this facility.) and EMS form Clinical information provided by:: patient and EMS Social determinants that could affect healthcare access:: none Patient has the following chronic illnesses:: DMI How is presenting disease/condition affected by chronic disease/condition?: exacerbated by Evaluation data The following diagnostics were reviewed and interpreted by me:: lab results Lab and/or radiology exams considered but not ordered:: none Medications / Prescriptions Medications / Prescriptions considered but not ordered:: none Discharge Plan Patient/Caregiver Discharge Instructions Print Language: Mosotho
--- NOTE | 2024-08-17 02:30 | EKG_ITS ---
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
--- NOTE | 2024-08-17 02:36 | EDNOTE_ITS ---
Nausea/Vomit./Diarrhea-RME/HPI General Chief complaint: Nausea/Vomiting/Diarrhea Stated complaint: DIABETIC EMERGENCY Time Seen by Provider: 08/17/24 02:50 Arrival date/time: 08/17/24 02:25 RME / HPI RME / HPI Narrative: This section includes all my notes and documentations, including HPI, PE, and ED course. Clint Curiel MD HPI: 29yo female with a history of DMI BIBA from home presents to the ED with intractable vomiting. And decreased mental status. Unable to obtain history from the patient due to decreased mental status. Family not present. ROS: Unable to obtain history from the patient due to current clinical condition. Physical Exam: General: Severely lethargic. Eyes:? Conjunctivae and lids clear.? EOMI.? PERRL. ENT:? No signs of head trauma. Neck:? Supple.? Heart: Sinus tachycardia noted. Lungs: Tachypnea noted.? Good air movement.? No significant rhonchi, wheezing, rales.?? Abdomen:? Soft and nontender.? Normal bowel sounds.? No distension.? No rebound or guarding.?? Legs:? No clubbing, cyanosis, edema.? Skin:? Warm and dry.?? Neuro:? Cranial Nerves II-XII grossly intact.? No peripheral motor deficits. Musculoskeletal:? All major joints and bones are not tender with no limited ROM. I reviewed EMS notes. Patient needed Ativan prior to diagnostic tests due to confusion and inability to stay still. I reviewed all diagnostic test results. My interpretation of the EKG is sinus tachycardia with nonsppecific ST-T changes. My interpretation of the chest x-ray is no acute findings, official radiology report is pending. Blood tests remarkable for WBC 22.4, Lactic Acid 6.9, Beta Hydroxybutyrate 5.4, ESR 50, Potassium 5.7, Carbon Dioxide <10, Anion Gap 28, Creatinine 1.9, Procalcitonin 0.65. ABG showed pH 7.25, pCO2 10, pHCO3 3. UDS is positive for methamphetamines and cocaine. UA shows 4+ glucose, 4+ ketones, positive leukocyte esterase, 13 RBCs, and 7 WBCs. At this point, diagnoses include DKA. Treatment here included IV fluid, insulin, Zofran, and Toradol. I discussed the case with our ICU team. About the presentation and exam and diagnostics and treatments here. And need of further care in the hospital. Will accept the patient. Clint Curiel MD Related Data Allergies Allergy/AdvReac Type Severity Reaction Status Date / Time No Known Allergies Allergy Verified 08/17/24 02:54 Review of Systems Review of Systems Systems Reviewed: All systems reviewed, normal except as documented ED Exam Narrative Physical exam: As noted in HPI. Course Course Course Narrative: 0358: Sepsis alert initiated. Orders made at this time are congruent with ED Adult Sepsis Order List. Re-evaluation is to be completed. Quality Measures none Orders Category Date Time Status Bedside COVID-19 Antigen Test NOW Care 08/17/24 02:28 Active Bedside Influenza A&B Antigen Test NOW Care 08/17/24 02:28 Completed COVID-19 Screening Questionnaire NOW Care 08/17/24 03:21 Active Decision to Admit X1 Care 08/17/24 03:21 Completed EKG (ED ONLY) *Do not use* NOW Care 08/17/24 02:30 Completed Saline [Insert IV] NOW Care 08/17/24 02:28 Active Straight [In and Out Catheter] X1 Care 08/17/24 02:28 Completed EKG (ED Only) Stat Exams 08/17/24 02:30 Draft XR chest 1V portable Stat Exams 08/17/24 02:47 Taken ABG [Arterial Blood Gas] Stat Lab 08/17/24 03:04 Completed Alcohol, Blood Medical Stat Lab 08/17/24 02:45 Results Ammonia Stat Lab 08/17/24 03:37 Completed Amylase Stat Lab 08/17/24 02:45 Results BNP [B-Type Natriuretic Peptide] Stat Lab 08/17/24 03:37 Completed Beta Hydroxybutyrate Stat Lab 08/17/24 02:45 Results Bilirubin,Direct Stat Lab 08/17/24 02:45 Results Blood Culture (Lab) Stat Lab 08/17/24 02:53 Received CBC Stat Lab 08/17/24 02:45 Completed CK [Creatine Kinase] Stat Lab 08/17/24 02:45 Results CMP [Comprehensive Metabolic Panel] Stat Lab 08/17/24 02:45 Results CRP [C-Reactive Protein] Stat Lab 08/17/24 02:45 Results Drug Screen,Urine Stat Lab 08/17/24 03:18 Completed ESR [Sed Rate (ESR)] Stat Lab 08/17/24 02:45 Completed Free T4 (Free Thyroxine) Stat Lab 08/17/24 02:45 Results HCG,Qualitative Serum Stat Lab 08/17/24 02:45 Results Hemoglobin A1C [Glycohemoglobin w (eAG)] Stat Lab 08/17/24 02:45 Completed Lactate (Lactic Acid) Stat Lab 08/17/24 02:45 Results Lipase Stat Lab 08/17/24 02:45 Results Magnesium Stat Lab 08/17/24 02:45 Results PT [Prothrombin Time with INR] Stat Lab 08/17/24 02:45 Completed PTT [Partial Thromboplastin Time] Stat Lab 08/17/24 02:45 Completed Procalcitonin Stat Lab 08/17/24 02:45 Results TSH [Thyroid Stimulating Hormone] Stat Lab 08/17/24 02:45 Results Troponin I Stat Lab 08/17/24 02:45 Results UA, C/S IF [Urinalysis, C/S if Indicated] Stat Lab 08/17/24 03:18 Completed Insulin Reg 100 Units/100 ml [Myxredlin] Med 08/17/24 03:15 Discontinued 100 unit in 100 ml IV 0.1 unit/kg/hr Insulin Reg 100 Units/100 ml [Myxredlin] Med 08/17/24 04:00 Active 100 unit in 100 ml IV 0.1 unit/kg/hr Insulin Regular Med 08/17/24 02:29 Discontinued 10 unit IV X1 ONE Ketorolac Inj [Toradol Inj] Med 08/17/24 03:30 Discontinued 30 mg IVP X1 ONE LORazepam [Ativan Inj] Med 08/17/24 02:50 Discontinued 2 mg IVP X1 ONE Ondansetron Inj [Zofran Inj] Med 08/17/24 02:28 Discontinued 4 mg IVP X1 ONE Ringers Lactated 1000 ml [Lactated Ringers] 1,000 ml Med 08/17/24 02:30 Active IV 1,000 mls/hr Ringers Lactated 1000 ml [Lactated Ringers] 1,000 ml Med 08/17/24 02:30 Active IV 1,000 mls/hr Sodium Chloride 0.9% 1000 ml [Ns] 1,000 ml Med 08/17/24 02:29 Discontinued IV 999 mls/hr Vital Signs Vital signs: Vital Signs Temperature 99.2 F 08/17/24 02:52 Pulse Rate 117 H 08/17/24 02:52 Respiratory Rate 20 08/17/24 02:52 Blood Pressure 120/77 08/17/24 02:52 Pulse Oximetry (%) 97 08/17/24 02:52 Oxygen Delivery Method Room Air 08/17/24 02:52 Nausea/Vomiting/Diarrhea MDM Narrative MDM Narrative:: 29yo female with a history of DMI BIBA from home presents to the ED for complaints of nausea and vomiting. Patient has been unable to hold down any fluids or food. Blood sugar read as high en route with EMS. No fever, chills, cough, shortness of breath or any other associated symptoms. No other complaints reported. Patient data External records reviewed:: [facility] previous records (Per chart review, patient was admitted here on 07/10/24 for DKA.) and EMS form Clinical information provided by:: patient and EMS Social determinants that could affect healthcare access:: substance use (history of cocaine use) Patient has the following chronic illnesses:: DMI How is presenting disease/condition affected by chronic disease/condition?: exacerbated by Evaluation data The following diagnostics were reviewed and interpreted by me:: lab results and EKG tracing(s) (My interpretation of the EKG is: Sinus tachycardia (120 bpm) with nonspecific ST-T changes. Clint Curiel MD) Lab and/or radiology exams considered but not ordered:: none Interpretation Summary: I reviewed all diagnostic test results. My interpretation of the EKG is sinus tachycardia with nonsppecific ST-T changes. My interpretation of the chest x-ray is no acute findings, official radiology report is pending. Blood tests remarkable for WBC 22.4, Lactic Acid 6.9, Beta Hydroxybutyrate 5.4, ESR 50, Potassium 5.7, Carbon Dioxide <10, Anion Gap 28, Creatinine 1.9, Procalcitonin 0.65. ABG showed pH 7.25, pCO2 10, pHCO3 3. UDS is positive for methamphetamines and cocaine. UA shows 4+ glucose, 4+ ketones, positive leukocyte esterase, 13 RBCs, and 7 WBCs. Medications / Prescriptions Medications / Prescriptions considered but not ordered:: none Medication administrations:: Medication Administration History Lactated Ringer's (Lactated Ringers) 1,000 mls @ 1,000 mls/hr IV .Q1H TRUDI Stop: 09/16/24 02:29 Last Admin: 08/17/24 04:06 Dose: 1,000 mls/hr Documented By: Infusion: 08/17/24 04:00 Dose: Infused Documented By: Admin: 08/17/24 02:51 Dose: 1,000 mls/hr Documented By: JERMAIN Lactated Ringer's (Lactated Ringers) 1,000 mls @ 1,000 mls/hr IV .Q1H TRUDI Stop: 09/16/24 02:29 Last Infusion: 08/17/24 04:06 Dose: Infused Documented By: Admin: 08/17/24 02:51 Dose: 1,000 mls/hr Documented By: JERMAIN Insulin Human Regular (Myxredlin) 100 unit in 100 mls @ 7.258 mls/hr IV .[id number] PRN; Protocol PRN Reason: PER PROTOCOL Stop: 09/16/24 03:14 Last Admin: 08/17/24 04:01 Dose: 0.1 unit/kg/hr, 7.258 mls/hr Documented By: JERMAIN Co-signed By: DALE Discontinued Medications Sodium Chloride (Ns) 1,000 mls @ 999 mls/hr IV .Q1H1M ONE Stop: 08/17/24 03:29 Last Admin: 08/17/24 03:24 Dose: 999 mls/hr Documented By: JERMAIN Insulin Human Regular (Myxredlin) 100 unit in 100 mls @ 6.35 mls/hr IV .[id number] PRN; Protocol PRN Reason: PER PROTOCOL Stop: 09/16/24 03:14 Insulin Human Regular (Insulin Hum Regular 1 Unit/0.01 Ml (Per Unit)) 10 unit IV X1 ONE Stop: 08/17/24 02:30 Last Admin: 08/17/24 03:01 Dose: 10 unit Documented By: JERMAIN Co-signed By: DALE Ketorolac Tromethamine (Ketorolac Inj 30 Mg/Ml Vial) 30 mg IVP X1 ONE Stop: 08/17/24 03:31 Last Admin: 08/17/24 03:51 Dose: 30 mg Documented By: JERMAIN Lorazepam (Lorazepam 2 Mg/Ml Vial) 2 mg IVP X1 ONE Stop: 08/17/24 02:51 Last Admin: 08/17/24 02:58 Dose: 2 mg Documented By: JERMAIN Ondansetron HCl (Ondansetron Inj 2 Mg/Ml Inj 2 Ml) 4 mg IVP X1 ONE; Protocol Stop: 08/17/24 02:29 Last Admin: 08/17/24 03:00 Dose: 4 mg Documented By: JERMAIN Treatment here included IV fluid, insulin, Zofran, and Toradol. Consultations Consultation(s) initiated? (list below): Yes Consultation #1 (Physician, Specialty, Details): I discussed the case with our ICU team. About the presentation and exam and diagnostics and treatments here. And need of further care in the hospital. Will accept the patient. Diagnosis Nausea Differential Diagnosis: dehydration and other (DKA, electrolyte abnormalities,) Most likely diagnosis given after review of the tests above:: DKA Admission Indicated Admission indicated?: indicated Explain why admission is indicated or not indicated:: DKA Admission Request Was there a request for admission?: Yes Admission Attestation Admission request attestation: Discussed case with our ICU service regarding admission. Discussed patients ED course, exam findings, labs, and radiology results. The Hospitalist [agrees] to accept the patient for admission. Disposition Plan Disposition Plan: Admit Critical Care Time Critical Care Time Critical Care Time: Yes Total Critical Care Time (min.): 45 Attestation: Due to a high probability of clinically significant, life threatening deterioration, the patient required my highest level of preparedness to intervene emergently and I personally spent this critical care time directly and personally managing the patient. This critical care time included obtaining a history; examining the patient; ordering and review of studies; arranging urgent treatment with development of a management plan; evaluation of patient's response to treatment; frequent reassessment; and discussions with family and other providers. It was exclusive of separately billable procedures and treating other patients and teaching time. Clint Curiel MD Discharge Plan Plan Patient Disposition: Admit Acute Care w/in Hospital Problem List Clinical Impression: DKA (diabetic ketoacidosis) Patient/Caregiver Discharge Instructions Print Language: Mohawk Stand Alone Forms: [facility]ourtney Award Info., Patient Portal Info Letter
--- NOTE | 2024-08-17 02:47 | XR_ITS ---
Examination: AP chest single view TECHNIQUE: AP portable semiupright chest single view Date and time: August 17, 2024 0316 hours INDICATIONS: Shortness of breath today, diagnosis diabetic emergency FINDINGS: Normal heart size No pneumonia or pulmonary edema The osseous structures are intact IMPRESSION: No pneumonia or pulmonary edema
[2024-08-17] MEDS: RINGERS LACTATED 1000 ML 1,000 ML IV ×3 (02:51→04:06)
[2024-08-17 02:55] LABS: Lactate (Lactic Acid) 6.9 mMol/L (0.4-2.0)
[2024-08-17 02:58] LABS: Basophils # (Auto) 0.2 Thou/mm3 (0.0-0.2); Basophils % (Auto) 1 % (0-2.5); Eosinophils % (Auto) 0 % (0-10); Hematocrit 38.9 % (36.0-46.0); Hemoglobin 12.9 g/dL (12.0-16.0); Immature Granulocytes % (Auto) 3 % (0-0); Lymphocytes % (Auto) 9 % (10-50); Mean Corpuscular HGB Conc 33.2 g/dl (31.0-37.0); Mean Corpuscular Hemoglobin 28.4 pg (25.0-35.0); Mean Corpuscular Volume 86 fL (80-100); Monocytes # (Auto) 1.1 Thou/mm3 (0.0-0.8); Monocytes % (Auto) 5 % (0-12); Neutrophils # (Auto) 18.6 Thou/mm3 (1.8-7.7); Neutrophils % (Auto) 83 % (37-80); Nucleated Red Blood Cell % 0 /100 WBC (0); Platelet Count 552 Thou/mm3 (140-440); RDW Standard Deviation 48.9 fL (36.4-46.3); Red Blood Count 4.55 Miln/mm3 (4.00-5.20); White Blood Count 22.4 Thou/mm3 (3.6-11.0)
[2024-08-17] MEDS: LORazepam 2 MG/ML VIAL IVP (02:58)
--- NOTE | 2024-08-17 02:58 | PC.NURSE ---
Pt uncooperative, restless, combative with staff, ripped out IV. Informed MD Curiel. 2 of IV ativan ordered.
[2024-08-17] MEDS: ONDANSETRON INJ 2 MG/ML INJ 2 ML 4 MG IVP (03:00)
[2024-08-17] MEDS: INSULIN HUM REGULAR 1 UNIT/0.01 ML (PER UNIT) 10 UNIT IV (03:01)
[2024-08-17 03:08] LABS: HCG,Qualitative Serum Negative
[2024-08-17 03:10] LABS: Beta Hydroxybutyrate 5.4 mmol/L (<0.6)
[2024-08-17 03:14] LABS: Base Excess -23 (-3-3); Inspired Oxygen, FIO2 21 %; O2 Saturation 100 % (91-98); PO2 173 mmHg (83-108)
[2024-08-17 03:16] LABS: pH, Arterial 7.15 (7.35-7.45)
[2024-08-17 03:17] LABS: PCO2 10 mmHg (32.0-48.0)
[2024-08-17 03:18] LABS: Allen Test Performed/OK; HCO3 3 mEq/L (20-26); Puncture Site Right Radial
[2024-08-17 03:20] LABS: Sed Rate (ESR) 50 mm/hr (0-20)
[2024-08-17 03:23] LABS: Prothrombin Time 11.1 Seconds (9.0-12.2)
[2024-08-17 03:24] LABS: Collection Type, Urine Clean Catch
[2024-08-17] MEDS: SODIUM CHLORIDE 0.9% 1000 ML 1,000 ML 999 ML IV (03:24)
[2024-08-17 03:29] LABS: Bilirubin,Urine Negative (Negative); Blood,Urine 3+ (Negative); Clarity,Urine Clear (Clear/Hazy); Color,Urine Lt-Yellow (Lt Yel-Yel); Culture Indicated,Urine Not Indicated; Glucose, Urine 4+ (Negative); Ketones,Urine 4+ (Negative); Leukocyte Esterase,Urine Positive (Negative); Nitrite,Urine Negative (Negative); PH,Urine 5.5 (5.0-7.0); Protein,Urine Trace (Neg - Trace); RBC,Urine 13 /hpf (0-3); Specific Gravity,Urine 1.024 (1.001-1.035); Squamous Epithelial Cell,Urine 2 /hpf (0-5); Urobilinogen,Urine Negative mg/dL (0.0-1.0); WBC,Urine 7 /hpf (0-5)
[2024-08-17 03:34] LABS: Glucose Estimated Average 289 mg/dL (80-131); Hemoglobin A1C 11.7 % Hgb (4.8-6.0)
[2024-08-17 03:35] LABS: Amphetamine/Methamp Scrn,U Positive (Negative); Barbiturate Screen,Urine Negative (Negative); Benzodiazepines Screen,Urine Negative (Negative); Benzoylecgonine Screen, Ur Positive (Negative); Fentanyl Screen,Urine Negative (Negative); Opiate Screen,Urine Negative (Negative); THC Screen,Urine Negative (Negative)
[2024-08-17] MEDS: KETOROLAC INJ 30 MG/ML VIAL IVP (03:51)
[2024-08-17] MEDS: INSULIN REG 100 UNITS/100 ML 100 UNIT/100 ML BAG 7.258 UNIT IV (04:01)
[2024-08-17 04:02] LABS: B-Type Natriuretic Peptide 135 pg/mL (0-100)
[2024-08-17 04:09] LABS: Ammonia < 10 uMol/L (11-32)
[2024-08-17 04:11] LABS: Alanine Aminotransferase 18 U/L (10-49); Albumin, Serum 4.2 gm/dL (3.5-5.0); Albumin/Globulin Ratio 1.8 (1.2-2.2); Alcohol, Blood Medical < 3.0 mg/dL (0-10.0); Alkaline Phosphatase 149 U/L (46-116); Amylase 40 U/L (30-118); Anion Gap 28 (7-16); Aspartate Amino Transferase 24 U/L (0-34); BUN/Creatinine Ratio 9 Ratio (12-20); Bilirubin,Direct 0.1 mg/dL (0.0-0.3); Bilirubin,Total 0.3 mg/dL (0.3-1.2); Blood Urea Nitrogen 17 mg/dL (9-23); C-Reactive Protein 0.8 mg/dL (0.0-0.9); Chloride 92 mMol/L (98-107); Creatine Kinase 24 U/L (34-171); Creatinine (Component) 1.9 mg/dL (0.6-1.3); Estimated Creatinine Clearance 43.3 mL/min (>60); Free T4 (Free Thyroxine) 0.97 ng/dL (0.89-1.76); Globulin 2.3 gm/dL (2.3-3.5); Lipase 18 U/L (12-53); Magnesium 1.9 mg/dL (1.6-2.6); Osmolality,Calculated 300 (275-295); Potassium 5.7 mMol/L (3.4-5.1); Procalcitonin 0.65 ng/ml (0.0-0.49); Sodium 130 mMol/L (136-145); Thyroid Stimulating Hormone 2.35 uIU/mL (0.55-4.78); Total Protein 6.5 gm/dL (5.7-8.2); Troponin I < 0.002 ng/mL (0.0-0.045); eGFR 36 See Note
[2024-08-17 04:13] LABS: Carbon Dioxide < 10.0 mMol/L (20.0-31.0)
[2024-08-17 04:34] LABS: Glucose 790 mg/dL (74-106)
[2024-08-17] MEDS: RINGERS LACTATED 1000 ML 1,000 ML 250 ML IV (05:31)
[2024-08-17 05:50] LABS: Reflex Lactate? Y
[2024-08-17] MEDS: SODIUM CHLORIDE 0.9% 1000 ML 2,000 ML 999 ML IV (05:50)
--- NOTE | 2024-08-17 05:58 | ESHP_ITS ---
Documentation for date of: 08/17/24 HPI - Hospitalist History of Present Illness History of present illness: Patient is somnolent, confused however able to move all extremities and responding appropriately and coherently on awakening up. A 29-year-old female with Hx of DM otherwise unremarkable brought into ED from home by ambulance due to intractable vomiting and altered mental status. Detailed history could not be obtained however patient reports that she was sick and not taking her medicines for diabetes. Denies chest pain, shortness of breath, abdominal pain, dysuria. No further history could be obtained due to patient's somnolence and limited responses. Review of Systems Review of Systems Narrative Review of Systems: Limited cooperation. Unremarkable except as above Meds Home Medications and Allergies Allergies Allergy/AdvReac Type Severity Reaction Status Date / Time No Known Allergies Allergy Verified 08/17/24 02:54 Exam Vital Signs Temp Pulse Resp BP Pulse Ox O2 Del Method O2 Flow Rate 99.2 F 117 H 22 H 128/82 100 Oxy Mask 2 08/17/24 02:52 08/17/24 05:45 08/17/24 05:45 08/17/24 05:45 08/17/24 05:45 08/17/24 05:45 08/17/24 05:45 Narrative Physical Exam: General: AO x 3 somnolent, No distress. HEENT: PERRL, No JVD, Neck supple. Resp: CTA bilaterally, no wheezing or crackles/rhonchii Card: Regular Rhythm, Normal rate. No audible murmur Gatro: Soft nontender, nondistended, no organomegaly. Extr: No LE edema, ROM intact, Neuro: No focal neruological deficits. Results - Hospitalist Labs Diagrams: 08/17/24 02:45 08/17/24 02:45 Labs: Short CBC 08/17/24 Range/Units 02:45 WBC 22.4 H (3.6-11.0) Thou/mm3 Hgb 12.9 (12.0-16.0) g/dL Hct 38.9 (36.0-46.0) % Plt Count 552 H (140-440) Thou/mm3 BMP 08/17/24 02:45 Sodium 130 L Potassium 5.7 H Chloride 92 L Carbon Dioxide < 10.0 L* BUN 17 Creatinine 1.9 H Glucose 790 H* Calcium 9.0 Cardiac Enzymes 08/17/24 Range/Units 02:45 Total Creatine Kinase 24 L (34-171) U/L Troponin I < 0.002 (0.0-0.045) ng/mL Liver Function 08/17/24 Range/Units 02:45 Total Bilirubin 0.3 (0.3-1.2) mg/dL Direct Bilirubin 0.1 (0.0-0.3) mg/dL AST 24 (0-34) U/L ALT 18 (10-49) U/L Alkaline Phosphatase 149 H (46-116) U/L Albumin 4.2 (3.5-5.0) gm/dL Urine 08/17/24 Range/Units 03:18 Urine Color Lt-Yellow (Lt Yel-Yel) Urine Clarity Clear (Clear/Hazy) Urine pH 5.5 (5.0-7.0) Ur Specific [place] 1.024 (1.001-1.035) Urine Protein Trace (Neg - Trace) Urine Glucose (UA) 4+ A (Negative) ABG Interpretation ABG results: 08/17/24 03:04 ABG pH 7.15 L* ABG pCO2 10 L* ABG pO2 173 H ABG HCO3 3 L* ABG O2 Saturation 100 H ABG Base Excess -23 L Assessment & Plan -Hospitalist Additional Assessment A 29-year-old female brought to ED with intractable nausea and vomiting and altered mental status. Found to have significant leukocytosis, severe electrolyte derangements and LEONA. Patient also noted to be in DKA requiring insulin infusion. Active issues: Diabetic ketoacidosis Acute encephalopathy-likely metabolic in nature Methamphetamine/cocaine intoxication Acute kidney injury. Electrolyte derangements Lactic acidosis Possible UTI PLAN: -Start with insulin infusion as per DKA protocol. -Administer NS bolus 2L over 2 hrs.& cont mainenance LR infusion at 250/hr - Obtain CT head without contrast in the setting of AMS - Will empirically treat with Rocephin 1 g daily for UTI - Repeat renal panel with electrolytes and lactate in 4 hours. - Follow-up with blood culture, urine culture, STD panel - Heparin for DVT and Protonix for GI prophylaxis. Bruna Foss MD Quality Measures Quality Measures none
[2024-08-17] MEDS: INSULIN REG 100 UNITS/100 ML 100 UNIT in PRE-MIXED 1 BAG 7.258 UNIT IV (06:00)
[2024-08-17] MEDS: cefTRIAXone/D5w 1gm IV premix 1 GM/50 ML BAG IV (06:11)
[2024-08-17 06:39] LABS: Lactic Acid, 3 HR 2.9 mMol/L (0.4-2.0)
--- NOTE | 2024-08-17 07:24 | ESPR_ITS ---
Documentation for date of: 08/17/24 Subjective Subjective Interval history: Patient is a 29-year-old female with a past medical history significant for IDDM type II [11.7%] with 4 previous admissions to the ICU for DKA, hypothyroidism and polysubstance use presented with chief complaint of confusion, nausea and vomiting for the past 4 days. Patient stated that she ran out of short acting insulin 4 days ago and been taking increasing doses of long-acting insulin. In the past 2 days patient had constant nausea, nonbloody and nonbilious vomiting and abdominal pain without being able to tolerate anything orally. She also endorsed using methamphetamine and cocaine in the last few days. Subsequently she presented to the emergency department. ED course: Labs showed pH 7.15, pCO2 10, bicarb <10, K5.7, lactic acid 6.9, S beta-hydroxybutyrate 5.4, anion gap 28. Urinalysis showed leukocyte esterase positive and 7+ WBC. Urine toxicology showed methamphetamine and cocaine positive. Patient will be admitted to the ICU for treatment and management of DKA. 08/17/2024: Overnight patient was confused and combative, lorazepam 2 Mg IV x 1 was given. Patient seen and examined at bedside this a.m. She complained of generalized abdominal pain and experiencing withdrawal symptoms of agitation from methamphetamine and cocaine. Also complained of dysuria. K5.7, bicarb 16.8, creatinine 1.9, lactic acid 6.9?>2.9, anion gap 28?>18. Continue insulin infusion for DKA and replete electrolytes as necessary. Ceftriaxone 1 g IV daily for UTI, Xanax 1 Mg p.o. x 1 for agitation and phenazopyridine 100 Mg p.o. every 8 hourly for flank pain. Exam Vital Signs Temp Pulse Resp BP Pulse Ox O2 Del Method O2 Flow Rate 99 F 113 H 20 144/86 H 98 Room Air 2 08/17/24 06:46 08/17/24 06:46 08/17/24 06:46 08/17/24 06:46 08/17/24 06:46 08/17/24 06:46 08/17/24 05:45 Narrative Exam Constitutional Alert, oriented x 3 and mild distress. Young female HEENT Vision grossly intact. Patent nares. Trachea midline Respiratory Chest normal on inspection and clear auscultation bilaterally Cardiovascular S1 and S2 audible, RRR. No murmurs carotid bruit. No gross JVD. Abdominal Soft and generalized tenderness to palpation in all quadrants. BS + Genitourinary No bladder tenderness, left flank pain. Normal to palpation Musculoskeletal Extremities tone within normal limits. No LE edema. Neurological CN II - XII grossly intact. Extremity motor and sensation grossly intact. Skin Warm, dry and intact. No apparent lesions. Psychiatric Patient has good affect, is cooperative Objective Labs 08/18/24 04:34 08/18/24 04:34 Labs: Laboratory Results - last 24 hr 08/17/24 08/17/24 08/17/24 02:45 03:04 03:18 WBC 22.4 H RBC 4.55 Hgb 12.9 Hct 38.9 MCV 86 MCH 28.4 MCHC 33.2 RDW Std Deviation 48.9 H Plt Count 552 H Neut % (Auto) 83 H Lymph % (Auto) 9 L [place] % (Auto) 5 Eos % (Auto) 0 Baso % (Auto) 1 Neut # (Auto) 18.6 H Lymph # (Auto) 2.0 [place] # (Auto) 1.1 H Eos # (Auto) 0.0 Baso # (Auto) 0.2 Immature Gran # (Auto) 0.60 H Absolute Nucleated RBC 0.00 Immature Gran % 3 H Nucleated RBC % 0 ESR 50 H PT 11.1 INR 1.0 APTT 21.0 L Puncture Site Right Radial ABG pH 7.15 L* ABG pCO2 10 L* ABG pO2 173 H ABG HCO3 3 L* ABG O2 Saturation 100 H ABG Base Excess -23 L FiO2 21 Sodium 130 L Potassium 5.7 H Chloride 92 L Carbon Dioxide < 10.0 L* Anion Gap 28 H BUN 17 Creatinine 1.9 H Estim Creat Clear Calc 43.3 L eGFR 36 L BUN/Creatinine Ratio 9 L Glucose 790 H* Estimated Ave Glu mg/dL 289 H Hemoglobin A1c 11.7 H Calculated Osmolality 300 H Lactic Acid 6.9 H* Calcium 9.0 Corrected Calcium 9.0 Magnesium 1.9 Total Bilirubin 0.3 Direct Bilirubin 0.1 AST 24 ALT 18 Alkaline Phosphatase 149 H Ammonia Total Creatine Kinase 24 L Troponin I < 0.002 C-Reactive Prot, Quant 0.8 B-Natriuretic Peptide Total Protein 6.5 Albumin 4.2 Globulin 2.3 Albumin/Globulin Ratio 1.8 Amylase 40 Lipase 18 Beta-Hydroxybutyrate/Acetoacetate 5.4 H Procalcitonin 0.65 H TSH 2.35 Free T4 0.97 HCG, Qual Negative Ur Collection Type Clean Catch Urine Color Lt-Yellow Urine Clarity Clear Urine pH 5.5 Ur Specific [place] 1.024 Urine Protein Trace Urine Glucose (UA) 4+ A Urine Ketones 4+ A Urine Blood 3+ A Urine Nitrite Negative Urine Bilirubin Negative Urine Urobilinogen (Auto) Negative Ur Leukocyte Esterase Positive Urine RBC 13 H Urine WBC 7 H Ur Squamous Epith Cells 2 Urine Bacteria None Ur Culture Indicated? Not Indicated Urine Opiates Screen Negative Urine Fentanyl Screen Negative Ur Barbiturates Screen Negative U Amphetamin/Meth Scrn Positive A U Benzodiazepines Scrn Negative U Cocaine Metab Screen Positive A U Marijuana (THC) Screen Negative Ethyl Alcohol < 3.0 08/17/24 08/17/24 03:37 06:09 WBC RBC Hgb Hct MCV MCH MCHC RDW Std Deviation Plt Count Neut % (Auto) Lymph % (Auto) [place] % (Auto) Eos % (Auto) Baso % (Auto) Neut # (Auto) Lymph # (Auto) [place] # (Auto) Eos # (Auto) Baso # (Auto) Immature Gran # (Auto) Absolute Nucleated RBC Immature Gran % Nucleated RBC % ESR PT INR APTT Puncture Site ABG pH ABG pCO2 ABG pO2 ABG HCO3 ABG O2 Saturation ABG Base Excess FiO2 Sodium Potassium Chloride Carbon Dioxide Anion Gap BUN Creatinine Estim Creat Clear Calc eGFR BUN/Creatinine Ratio Glucose Estimated Ave Glu mg/dL Hemoglobin A1c Calculated Osmolality Lactic Acid 2.9 H Calcium Corrected Calcium Magnesium Total Bilirubin Direct Bilirubin AST ALT Alkaline Phosphatase Ammonia < 10 L Total Creatine Kinase Troponin I C-Reactive Prot, Quant B-Natriuretic Peptide 135 H Total Protein Albumin Globulin Albumin/Globulin Ratio Amylase Lipase Beta-Hydroxybutyrate/Acetoacetate Procalcitonin TSH Free T4 HCG, Qual Ur Collection Type Urine Color Urine Clarity Urine pH Ur Specific [place] Urine Protein Urine Glucose (UA) Urine Ketones Urine Blood Urine Nitrite Urine Bilirubin Urine Urobilinogen (Auto) Ur Leukocyte Esterase Urine RBC Urine WBC Ur Squamous Epith Cells Urine Bacteria Ur Culture Indicated? Urine Opiates Screen Urine Fentanyl Screen Ur Barbiturates Screen U Amphetamin/Meth Scrn U Benzodiazepines Scrn U Cocaine Metab Screen U Marijuana (THC) Screen Ethyl Alcohol ABG Interpretation ABG results: 08/17/24 03:04 ABG pH 7.15 L* ABG pCO2 10 L* ABG pO2 173 H ABG HCO3 3 L* ABG O2 Saturation 100 H ABG Base Excess -23 L Quality Measures Quality Measures none Assessment & Plan Assessment Current Active Medications: Generic Name Dose Route Start Last Admin Trade Name Freq PRN Reason Stop Dose Admin Dextrose 25 ml 08/17/24 05:18 Dextrose 50%-Water Inj 50 Ml Syringe IV [id number] PRN Blood Sugar - Low Lactated Ringer's 1,000 mls @ 1,000 mls/hr 08/17/24 02:30 08/17/24 05:53 Lactated Ringers IV 09/16/24 02:29 Not Given .Q1H TRUDI Lactated Ringer's 1,000 mls @ 1,000 mls/hr 08/17/24 02:30 08/17/24 05:53 Lactated Ringers IV 09/16/24 02:29 Not Given .Q1H TRUDI Potassium Chloride 10 meq in 100 mls @ 100 mls/hr 08/17/24 05:18 Kcl Ivpb IV 09/16/24 05:17 .Q1H PRN IF POTASSIUM LESS THAN 3.3 Magnesium Sulfate 2 gm in 50 mls @ 25 mls/hr 08/17/24 05:18 Magnesium Sulfate Ivpb IV 09/16/24 05:17 .Q2H PRN PER DKA PROTOCOL Insulin Human Regular 100 unit 100 mls @ 7.258 mls/hr 08/17/24 05:18 08/17/24 06:00 / IV Miscellaneous Supplies IV 09/16/24 05:17 0.1 unit/kg/hr .[id number] PRN 7.258 mls/hr PER PROTOCOL Administration Protocol 0.1 UNIT/KG/HR Dextrose/Lactated Ringer's 1,000 mls @ 250 mls/hr 08/17/24 05:18 D5-Lr IV 09/16/24 05:17 .Q4H PRN PER PROTOCOL Lactated Ringer's 1,000 mls @ 250 mls/hr 08/17/24 05:18 08/17/24 05:31 Lactated Ringers IV 08/18/24 05:17 250 mls/hr .Q4H PRN Administration PER PROTOCOL Potassium Chloride 20 meq/ 1,010 mls @ 250 mls/hr 08/17/24 05:18 Lactated Ringer's IV 09/16/24 05:17 .Q4H3M PRN K LEVEL 3.3 TO 5.3mM/L Potassium Chloride 40 meq/ 1,020 mls @ 250 mls/hr 08/17/24 05:18 Lactated Ringer's IV 09/16/24 05:17 .Q4H5M PRN K LEVEL < 3.3 mM/L Potassium Chloride 40 meq/ 1,020 mls @ 250 mls/hr 08/17/24 05:18 Dextrose/Lactated Ringer's IV 09/16/24 05:17 .Q4H5M PRN K LEVEL < 3.3mM/L Potassium Cl/Dextrose/Lact Ringer's 20 meq in 1,000 mls @ 250 mls/hr 08/17/24 05:18 Kcl 20 Meq/L In D5-Lr IV 09/16/24 05:17 .Q4H PRN K LEVEL 3.3 TO 5.3 mM/L Potassium Chloride 10 meq in 100 mls @ 50 mls/hr 08/17/24 05:18 Kcl Ivpb IV 09/16/24 05:17 PRN PRN K LEVEL 3.3 to 5.3 & BG > 200 Potassium Phosphate 15 mmol in 250 mls @ 62.5 mls/hr 08/17/24 05:18 Pot Phos 15 Mmol In Ns 250 Ml IV 09/16/24 05:17 PRN PRN Phosphate <= 1mg/dL Sodium Phosphate 15 mmol/ 255 mls @ 62.5 mls/hr 08/17/24 05:18 Sodium Chloride IV 09/16/24 05:17 .Q4H5M PRN Phosphate <= 1mg/dL and K> than 5.3 Sodium Chloride 2,000 mls @ 999 mls/hr 08/17/24 05:40 08/17/24 05:50 Ns IV 08/17/24 07:40 999 mls/hr .Q2H1M ONE Administration Ceftriaxone Sodium/Dextrose 1 gm in 50 mls @ 100 mls/hr 08/17/24 06:00 08/17/24 06:42 Rocephin/D5w 1gm Iv Premix IV 08/24/24 05:59 Infused Q12HR TRUDI Infusion Pharmacy Consult 1 each 08/17/24 09:00 Pharmacy Renal Dose Adjustment 1 Ea XX 09/16/24 08:59 QDAY TRUDI Sodium Bicarbonate 50 ml 08/17/24 05:18 Sodium Bicarb Inj 8.4% Syr 50 Ml Syringe IV 09/16/24 05:17 Q4HR PRN For ph <= to 7.0 Plan Patient is a 29-year-old female with a past medical history significant for IDDM type II [11.7%] with 4 previous admissions to the ICU for DKA, hypothyroidism and polysubstance use presented with chief complaint of confusion, nausea and vomiting for the past 4 days. Patient stated that she ran out of short acting insulin 4 days ago and been taking increasing doses of long-acting insulin. In the past 2 days patient had constant nausea, nonbloody and nonbilious vomiting and abdominal pain without being able to tolerate anything orally. She also endorsed using methamphetamine and cocaine in the last few days. Subsequently she presented to the emergency department. ED course: Labs showed pH 7.15, pCO2 10, bicarb <10, K5.7, lactic acid 6.9, S beta-hydroxybutyrate 5.4, anion gap 28. Urinalysis showed leukocyte esterase positive and 7+ WBC. Urine toxicology showed methamphetamine and cocaine positive. Patient will be admitted to the ICU for treatment and management of DKA. NEURO Acute metabolic encephalopathy?resolved DDx: Drug intoxication, DKA Dx: Patient was altered and combative on admission. Currently ANO x 3 Rx: Xanax 1 Mg p.o. x 1 for agitation. General measures to avoid hospital induced delirium RRX: Continue to monitor mental status History of methamphetamine and cocaine use Dx: U-Tox positive for methamphetamine and cocaine. Patient endorses use as well Rx: Xanax 1 Mg p.o. x 1. RRx: Will continue to assess the need for further anxiolytics ENDO Diabetic ketoacidosis Insulin-dependent diabetes mellitus type 2 [11.7%] DDx: Secondary to noncompliance Dx: pH 7.15, pCO2 10, bicarb <10, beta hydroxybutyrate 5.4, blood glucose 790, anion gap 28. Rx: Insulin infusion and IVF resuscitation. Replete electrolytes as necessary RRX: Follow-up on renal panel History of hypothyroidism Dx: TSH 2.35 Home medication levothyroxine 88 mcg p.o. daily Rx: To resume home medication after reconciliation and once nausea resolves ID UTI Dx: Urinalysis positive for leukocyte esterase patient, 7+ WBC. Patient also endorses history of dysuria Rx: Ceftriaxone 1 g IV daily started on [08/17? . Started on phenazopyridine 100 Mg p.o. Q8 hourly for flank pain RRx: Follow-up on blood and urine cultures CVS Sinus tachycardia DDx: Secondary to DKA and methamphetamine withdrawal Dx: Heart rate in 110s Rx: Lactated Ringer's 1L IVF bolus PULM No acute problems GI/Hep Nausea DDx: secondary to DKA Rx: Ondansetron 4mg IV q 6hrly as needed RENAL Acute kidney injury DDx: Likely prerenal secondary to dehydration and lactic acidosis Dx: CR 1.9. Baseline CR 0.8 Rx: Continue IVF fluid resuscitation. Renally dose medication. RRX: Follow-up renal panel Lactic acidosis?resolving DDx: Secondary to DKA and vomiting Dx: Lactic acid 6.9?>2.9 Rx: Will stop trending lactate HEME/ONC Leukocytosis DDx: Secondary to DKA Dx: WBC 22.5 Rx: Follow-up on urine, blood culture results. Monitor CBC MSK/DERM No acute problems ICU Health maintenance: Dispo: Admit to ICU for DKA management Diet: NPO DVT ppx: Enoxaparin 40mg SC daily GI ppx: Protonix 40mg qD IV lines: 2 pIV Central line: No Arterial line: No [place]: No Code status: FULL CODE Plan of care discussed with Attending Dr. Betina Doran MD PGY 1 Disclaimer: This note was dictated by speech recognition. Minor errors in addiction professional may be present due to voice recognition software. Attending Provider Attestation/Addendum Patient seen and examined with the resident, Garry Doran MD. patient admitted with DKA. Ongoing management per protocol. Precipitating infection and history of noncompliance. Aggressive fluid resuscitation for acute kidney injury as well. Previously given for urinary tract as likely source and pain associated with this. Ongoing patient with metabolic encephalopathy likely secondary to polysubstance use. Will treat anxiety with benzodiazepines given positive for methamphetamine and cocaine. Given improvement in acidosis, this will be appropriate as she has adequate reserve now monitor closely overnight in the ICU and remain n.p.o. until she is able to transition. Can continue on Zofran for nausea and consider Reglan if needed. Will reassess tomorrow for potential downgrade to medicine narvaez for ongoing management. Patient counseled on at bedside on plan of care. Total critical care time: I personally spent 30 minutes for review of physiologic parameters, directing plan of care, and counseling patient at bedside. This is exclusive of time spent teaching housestaff performing separate billable procedures. Patient remains at significant risk for further morbidity and mortality warranting close monitoring of care when available in the ICU. Patient required critical care services for sepsis, urinary tract infection, diabetic ketoacidosis, acute renal failure.
[2024-08-17 07:48] LABS: HIV (1&2) Antibody Rapid Non-Reactive
[2024-08-17 08:06] LABS: Albumin, Serum 3.4 gm/dL (3.5-5.0); Anion Gap 18 (7-16); BUN/Creatinine Ratio 13 Ratio (12-20); Blood Urea Nitrogen 17 mg/dL (9-23); Calcium 8.2 mg/dL (8.3-10.6); Calcium (Corrected) 8.7 mg/dL (8.5-10.1); Carbon Dioxide 16.8 mMol/L (20.0-31.0); Chloride 105 mMol/L (98-107); Creatinine (Component) 1.3 mg/dL (0.6-1.3); Estimated Creatinine Clearance 63.3 mL/min (>60); Glucose 295 mg/dL (74-106); Magnesium 1.6 mg/dL (1.6-2.6); Osmolality,Calculated 291 (275-295); Phosphorous 1.8 mg/dL (2.4-5.1); Potassium 4.3 mMol/L (3.4-5.1); Sodium 140 mMol/L (136-145); eGFR 56 See Note
[2024-08-17] MEDS: RINGERS LACTATED 1000 ML 1,000 ML 999 ML IV (08:30)
[2024-08-17] MEDS: KCL 20 mEq/L in D5-LR 20 MEQ/1,000 ML BAG 250 MEQ IV ×3 (08:39→17:34)
[2024-08-17] MEDS: NAPH,KPH MBDB 1 PACKET (1.5 GM) PO (09:48)
[2024-08-17] MEDS: Magnesium Sulfate 2 GM Ivpb 2 GM/50 ML BAG IV (09:48)
[2024-08-17] MEDS: ALPRazoLAM 0.25 MG TABLET 0.5 MG PO (09:48)
[2024-08-17 11:51] LABS: Anion Gap 17 (7-16); BUN/Creatinine Ratio 9 Ratio (12-20); Blood Urea Nitrogen 10 mg/dL (9-23); Calcium 8.7 mg/dL (8.3-10.6); Calcium (Corrected) 8.7 mg/dL (8.5-10.1); Carbon Dioxide 19.1 mMol/L (20.0-31.0); Chloride 102 mMol/L (98-107); Creatinine (Component) 1.1 mg/dL (0.6-1.3); Estimated Creatinine Clearance 74.8 mL/min (>60); Glucose 130 mg/dL (74-106); Osmolality,Calculated 276 (275-295); Potassium 3.7 mMol/L (3.4-5.1); Sodium 138 mMol/L (136-145); eGFR > 60 See Note
[2024-08-17] MEDS: PHENAZOPYRIDINE HCL 100 MG TABLET PO ×2 (13:19→21:45)
[2024-08-17 16:25] LABS: Albumin, Serum 3.4 gm/dL (3.5-5.0); Anion Gap 13 (7-16); BUN/Creatinine Ratio 7 Ratio (12-20); Blood Urea Nitrogen 7 mg/dL (9-23); Calcium 8.1 mg/dL (8.3-10.6); Calcium (Corrected) 8.6 mg/dL (8.5-10.1); Carbon Dioxide 20.4 mMol/L (20.0-31.0); Chloride 101 mMol/L (98-107); Estimated Creatinine Clearance 82.2 mL/min (>60); Glucose 144 mg/dL (74-106); Magnesium 1.8 mg/dL (1.6-2.6); Osmolality,Calculated 269 (275-295); Phosphorous 1.6 mg/dL (2.4-5.1); Potassium 3.7 mMol/L (3.4-5.1); Sodium 134 mMol/L (136-145); eGFR > 60 See Note
[2024-08-17 18:29] LABS: Albumin, Serum 3.5 gm/dL (3.5-5.0); Anion Gap 14 (7-16); BUN/Creatinine Ratio 7 Ratio (12-20); Blood Urea Nitrogen 6 mg/dL (9-23); Calcium 8.2 mg/dL (8.3-10.6); Calcium (Corrected) 8.6 mg/dL (8.5-10.1); Carbon Dioxide 19.5 mMol/L (20.0-31.0); Chloride 101 mMol/L (98-107); Creatinine (Component) 0.9 mg/dL (0.6-1.3); Estimated Creatinine Clearance 91.4 mL/min (>60); Glucose 149 mg/dL (74-106); Osmolality,Calculated 268 (275-295); Phosphorous 1.3 mg/dL (2.4-5.1); Potassium 3.2 mMol/L (3.4-5.1); Sodium 134 mMol/L (136-145); eGFR > 60 See Note
[2024-08-17] MEDS: POT CHL ADDITIVE 40 MEQ in DEXTROSE 5%-LACTATED RINGERS 1,000 ML 250 MEQ IV (19:09)
[2024-08-17] MEDS: INSULIN GLARGINE (Lantus) 5 UNIT/0.05 ML (PER 5 UNITS) 25 UNIT SC (19:20)
[2024-08-17] MEDS: POTASSIUM CHL 10 mEq IVPB 10 MEQ/100 ML BAG 100 MEQ IV ×4 (19:42→22:59)
[2024-08-17] MEDS: POT PHOS 15 mMol in NS 250 ML 15 MMOL/250 ML BAG 62.5 MMOL IV (20:11)
[2024-08-17] MEDS: ARIPiprazole 5 MG TABLET 10 MG PO (20:32)
[2024-08-17] MEDS: ENOXAPARIN SOD INJ 40 MG/0.4 ML SYRINGE SC (20:33)
[2024-08-18] VITALS (14 sets, daily range): BP systolic 100–142; BP diastolic 65–96; PULSE 68–93; RESP 14–20; TEMP 36.1–37.1; O2SAT 94–100
[2024-08-18 05:36] LABS: Basophils # (Auto) 0.1 Thou/mm3 (0.0-0.2); Basophils % (Auto) 1 % (0-2.5); Eosinophils # (Auto) 0.1 Thou/mm3 (0.0-0.5); Eosinophils % (Auto) 1 % (0-10); Hematocrit 30.1 % (36.0-46.0); Hemoglobin 10.3 g/dL (12.0-16.0); Immature Granulocytes % (Auto) 1 % (0-0); Immature Granulocytes Auto 0.12 Thou/mm3 (0.00-0.00); Lymphocytes # (Auto) 3.9 Thou/mm3 (1.0-4.8); Lymphocytes % (Auto) 28 % (10-50); Mean Corpuscular HGB Conc 34.2 g/dl (31.0-37.0); Mean Corpuscular Hemoglobin 28.1 pg (25.0-35.0); Mean Corpuscular Volume 82 fL (80-100); Monocytes # (Auto) 0.9 Thou/mm3 (0.0-0.8); Monocytes % (Auto) 6 % (0-12); Neutrophils # (Auto) 8.6 Thou/mm3 (1.8-7.7); Neutrophils % (Auto) 63 % (37-80); Nucleated Red Blood Cell % 0 /100 WBC (0); Platelet Count 286 Thou/mm3 (140-440); RDW Standard Deviation 46.4 fL (36.4-46.3); Red Blood Count 3.67 Miln/mm3 (4.00-5.20); White Blood Count 13.6 Thou/mm3 (3.6-11.0)
[2024-08-18] MEDS: PHENAZOPYRIDINE HCL 100 MG TABLET PO ×2 (06:19→13:46)
[2024-08-18 06:22] LABS: Albumin, Serum 3.2 gm/dL (3.5-5.0); Anion Gap 14 (7-16); BUN/Creatinine Ratio 5 Ratio (12-20); Blood Urea Nitrogen < 5 mg/dL (9-23); Calcium 8.2 mg/dL (8.3-10.6); Calcium (Corrected) 8.8 mg/dL (8.5-10.1); Carbon Dioxide 21.3 mMol/L (20.0-31.0); Chloride 100 mMol/L (98-107); Estimated Creatinine Clearance 82.2 mL/min (>60); Glucose 289 mg/dL (74-106); Magnesium 1.8 mg/dL (1.6-2.6); Osmolality,Calculated 278 (275-295); Phosphorous 2.2 mg/dL (2.4-5.1); Potassium 4.1 mMol/L (3.4-5.1); Sodium 135 mMol/L (136-145); eGFR > 60 See Note
[2024-08-18] MEDS: INSULIN GLARGINE (Lantus) 5 UNIT/0.05 ML (PER 5 UNITS) 10 UNIT SC (07:28)
[2024-08-18] MEDS: NAPH,KPH MBDB 1 PACKET (1.5 GM) PO ×2 (07:28→18:17)
[2024-08-18] MEDS: INSULIN LISPRO (AdmeLOG) 1 UNIT/0.01 ML UNIT 5 UNIT SC ×3 (07:29→18:11)
[2024-08-18] MEDS: INSULIN LISPRO (AdmeLOG) 1 UNIT/0.01 ML UNIT SC ×3 (07:30→18:10)
--- NOTE | 2024-08-18 07:35 | ESPR_ITS ---
Documentation for date of: 08/18/24 Subjective Subjective Interval history: Patient is a 29-year-old female with a past medical history significant for IDDM type II [11.7%] with 4 previous admissions to the ICU for DKA, hypothyroidism and polysubstance use presented with chief complaint of confusion, nausea and vomiting for the past 4 days. Patient stated that she ran out of short acting insulin 4 days ago and been taking increasing doses of long-acting insulin. In the past 2 days patient had constant nausea, nonbloody and nonbilious vomiting and abdominal pain without being able to tolerate anything orally. She also endorsed using methamphetamine and cocaine in the last few days. Subsequently she presented to the emergency department. ED course: Labs showed pH 7.15, pCO2 10, bicarb <10, K5.7, lactic acid 6.9, S beta-hydroxybutyrate 5.4, anion gap 28. Urinalysis showed leukocyte esterase positive and 7+ WBC. Urine toxicology showed methamphetamine and cocaine positive. Patient will be admitted to the ICU for treatment and management of DKA. 08/17/2024: Overnight patient was confused and combative, lorazepam 2 Mg IV x 1 was given. Patient seen and examined at bedside this a.m. She complained of generalized abdominal pain and experiencing withdrawal symptoms of agitation from methamphetamine and cocaine. Also complained of dysuria. K5.7, bicarb 16.8, creatinine 1.9, lactic acid 6.9?>2.9, anion gap 28?>18. Continue insulin infusion for DKA and replete electrolytes as necessary. Ceftriaxone 1 g IV daily for UTI, Xanax 1 Mg p.o. x 1 for agitation and phenazopyridine 100 Mg p.o. every 8 hourly for flank pain. 08/18/2024: Patient was seen and examined at bedside this AM. No acute events overnight. Patient tolerating diet, adequate urine output and mentation is at baseline. She denies any N/V, no fevers and no diarrhea. Last BM was yesterday. She received 25U x1 yesterday evening + 3U ACHS, blood sugars are still trending 250-300. Insulin dose increased, patient transitioned to 35U glargine HS + 5U TIDWM, in addition to SSI. Lab work shows normal anion gap, bicarb and electrolytes within normal limits, LEONA has resolved Cr 1.9 -> 1. Hospitalist team was informed, patient to be downgraded out of ICU for continued management. Exam Vital Signs Temp Pulse Resp BP Pulse Ox O2 Del Method O2 Flow Rate 98.4 F 82 20 142/96 H 99 Room Air 2 08/18/24 04:00 08/18/24 07:23 08/18/24 07:00 08/18/24 07:00 08/18/24 07:00 08/18/24 05:00 08/17/24 05:45 Narrative Exam Constitutional Alert, oriented x 3. Young female. No N/V HEENT Vision grossly intact. Patent nares. Trachea midline Respiratory Chest normal on inspection and clear auscultation bilaterally Cardiovascular S1 and S2 audible, RRR. No murmurs carotid bruit. No gross JVD. Abdominal Soft, non tender to palpation in all quadrants. BS + Genitourinary No bladder tenderness, left flank pain. Normal to palpation, johnston in place Musculoskeletal Extremities tone within normal limits. No LE edema. Neurological CN II - XII grossly intact. Extremity motor and sensation grossly intact. Skin Warm, dry and intact. No apparent lesions. Psychiatric Patient has good affect, is cooperative Objective Labs 08/18/24 04:34 08/18/24 04:34 Labs: Laboratory Results - last 24 hr 08/17/24 08/17/24 08/17/24 06:30 11:06 15:20 WBC RBC Hgb Hct MCV MCH MCHC RDW Std Deviation Plt Count Neut % (Auto) Lymph % (Auto) [place] % (Auto) Eos % (Auto) Baso % (Auto) Neut # (Auto) Lymph # (Auto) [place] # (Auto) Eos # (Auto) Baso # (Auto) Immature Gran # (Auto) Absolute Nucleated RBC Immature Gran % Nucleated RBC % Sodium 140 D 138 134 L Potassium 4.3 D 3.7 D 3.7 Chloride 105 102 101 Carbon Dioxide 16.8 L 19.1 L 20.4 Anion Gap 18 H 17 H 13 BUN 17 10 7 L Creatinine 1.3 D 1.1 1.0 Estim Creat Clear Calc 63.3 74.8 82.2 eGFR 56 L > 60 > 60 BUN/Creatinine Ratio 13 9 L 7 L Glucose 295 H D 130 H D 144 H Calculated Osmolality 291 276 269 L Calcium 8.2 L 8.7 8.1 L Corrected Calcium 8.7 8.7 8.6 Phosphorus 1.8 L 2.0 L 1.6 L Magnesium 1.6 2.0 1.8 Albumin 3.4 L D 4.0 D 3.4 L D HIV 1&2 Antibody Rapid Non-Reactive 08/17/24 08/18/24 17:48 04:34 WBC 13.6 H D RBC 3.67 L Hgb 10.3 L D Hct 30.1 L MCV 82 MCH 28.1 MCHC 34.2 RDW Std Deviation 46.4 H Plt Count 286 D Neut % (Auto) 63 Lymph % (Auto) 28 [place] % (Auto) 6 Eos % (Auto) 1 Baso % (Auto) 1 Neut # (Auto) 8.6 H Lymph # (Auto) 3.9 [place] # (Auto) 0.9 H Eos # (Auto) 0.1 Baso # (Auto) 0.1 Immature Gran # (Auto) 0.12 H Absolute Nucleated RBC 0.00 Immature Gran % 1 H Nucleated RBC % 0 Sodium 134 L 135 L Potassium 3.2 L D 4.1 D Chloride 101 100 Carbon Dioxide 19.5 L 21.3 Anion Gap 14 14 BUN 6 L < 5 L Creatinine 0.9 1.0 Estim Creat Clear Calc 91.4 82.2 eGFR > 60 > 60 BUN/Creatinine Ratio 7 L 5 L Glucose 149 H 289 H D Calculated Osmolality 268 L 278 Calcium 8.2 L 8.2 L Corrected Calcium 8.6 8.8 Phosphorus 1.3 L 2.2 L Magnesium 1.8 Albumin 3.5 3.2 L HIV 1&2 Antibody Rapid ABG Interpretation ABG results: 08/17/24 03:04 ABG pH 7.15 L* ABG pCO2 10 L* ABG pO2 173 H ABG HCO3 3 L* ABG O2 Saturation 100 H ABG Base Excess -23 L Quality Measures Quality Measures none Assessment & Plan Assessment Current Active Medications: Generic Name Dose Route Start Last Admin Trade Name Freq PRN Reason Stop Dose Admin Aripiprazole 10 mg 08/17/24 21:00 08/17/24 20:32 Aripiprazole 5 Mg Tablet PO 09/16/24 20:59 10 mg HS TRUDI Administration Dextrose 25 ml 08/17/24 08:43 Dextrose 50%-Water Inj 50 Ml Syringe IV [id number] PRN Blood Sugar - Low Dextrose 50 ml 08/17/24 18:59 Dextrose 50%-Water Inj 50 Ml Syringe IV 09/16/24 18:58 Q15MIN PRN BG <50 OR BG <70 & pt unresponsive Enoxaparin Sodium 40 mg 08/17/24 21:00 08/17/24 20:33 Enoxaparin Sod Inj 40 Mg/0.4 Ml Syringe SC 08/31/24 20:59 40 mg HS TRUDI Administration Glucagon 1 mg 08/17/24 18:59 Glucagon Inj 1 Mg Vial IM Q15MIN PRN BG <70, and no IV access Ceftriaxone Sodium/Dextrose 1 gm in 50 mls @ 100 mls/hr 08/18/24 09:00 Rocephin/D5w 1gm Iv Premix IV 08/25/24 08:59 QDAY [facility] Protocol Insulin Glargine 25 unit 08/18/24 21:00 Insulin Glargine (Lantus) 5 Unit/0.05 Ml (Per 5 Units) [place] 08/18/24 21:01 X1 ONE Insulin Glargine 35 unit 08/19/24 21:00 Insulin Glargine (Lantus) 5 Unit/0.05 Ml (Per 5 Units) LA 09/18/24 20:59 HS [facility] Insulin Human Lispro 0 unit 08/17/24 21:00 08/17/24 21:53 Insulin Lispro (Admelog) 1 Unit/0.01 Ml Unit LA 09/16/24 20:59 Not Given ACHS [facility] Protocol Insulin Human Lispro 5 unit 08/18/24 08:00 Insulin Lispro (Admelog) 1 Unit/0.01 Ml Unit LA 09/17/24 07:59 TIDWM [facility] Ondansetron HCl 4 mg 08/17/24 15:41 Ondansetron Inj 2 Mg/Ml Inj 2 Ml IVP 09/16/24 15:40 Q6HR PRN NAUSEA OR VOMITING Protocol Pharmacy Consult 1 each 08/17/24 09:00 08/17/24 09:48 Pharmacy Renal Dose Adjustment 1 Ea XX 09/16/24 08:59 Not Given QDAY [facility] Phenazopyridine HCl 100 mg 08/17/24 14:00 08/18/24 06:19 Phenazopyridine Hcl 100 Mg Tablet PO 08/19/24 06:01 100 mg Q8HR TRUDI Administration Vitamin B Complex/Vit C/Folic Acid 1 tab 08/18/24 09:00 Vit B12/Vit C/Fa (Nephrovite) Tablet PO 09/17/24 08:59 QDAY TRUDI Plan Patient is a 29-year-old female with a past medical history significant for IDDM type II [11.7%] with 4 previous admissions to the ICU for DKA, hypothyroidism and polysubstance use presented with chief complaint of confusion, nausea and vomiting for the past 4 days. Patient stated that she ran out of short acting insulin 4 days ago and been taking increasing doses of long-acting insulin. In the past 2 days patient had constant nausea, nonbloody and nonbilious vomiting and abdominal pain without being able to tolerate anything orally. She also endorsed using methamphetamine and cocaine in the last few days. Subsequently she presented to the emergency department. ED course: Labs showed pH 7.15, pCO2 10, bicarb <10, K5.7, lactic acid 6.9, S beta-hydroxybutyrate 5.4, anion gap 28. Urinalysis showed leukocyte esterase positive and 7+ WBC. Urine toxicology showed methamphetamine and cocaine positive. Patient will be admitted to the ICU for treatment and management of DKA. NEURO Generalized anxiety disorder History of methamphetamine and cocaine use Dx: U-Tox positive for methamphetamine and cocaine. Patient endorses use as well - 08/17: Xanax 1 Mg p.o. x 1, tolerated well Rx: - Resumed home Lauro CASTILLO, evidence of antipsychotic benefit in meth use - Started on Bupropion for evidence of benefit in methamphetamine use. 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 PULM No active problems. GI/Hep No active problems. ENDO DKA - resolved Type 2 Insulin-dependent diabetes mellitus [11.7%] DDx: Secondary to noncompliance Dx: - 08/17: pH 7.15, pCO2 10, bicarb <10, beta hydroxybutyrate 5.4, blood glucose 790, anion gap 28. - 08/18: Patient tolerating diet, no N/V. Lab work shows normal anion gap, bicarb and electrolytes within normal limits. - She received 25U x1 yesterday evening + 3U ACHS, blood sugars are still trending 250-300. Rx: - Insulin infusion and IVF resuscitation on 08/17 - Insulin dose increased, patient transitioned to 35U glargine HS + 5U TIDWM, in addition to SSI. - Replete electrolytes as necessary Hypothyroidism Dx: TSH 2.35 Home medication levothyroxine 88 mcg p.o. daily Rx: - Resume Levothyroxine 88 mcg p.o. daily RENAL No active problems. LEONA Cr 1.9 -> 1 Lactic acid 6.9?>2.9 ID UTI Dx: - 08/17: Urinalysis positive for leukocyte esterase patient, 7+ WBC. - Patient also endorses history of dysuria Rx: - Ceftriaxone 1 g IV daily started on [08/17? 08/18] - On phenazopyridine 100 Mg p.o. Q8 hourly for flank pain - Transitioned to Ciprofloxacin 500mg BID [08/18 - - Johnston discontinued. HEME/ONC Leukocytosis Dx: WBC 22.5 --> 13.6 Rx: - Patient has been afebrile since admission - Likely in the setting of UTI. On antibiotics. - Follow-up on Blood cultures. - Daily CBC ICU Health maintenance: Dispo: Admit to ICU for DKA management -> Medical floors on 08/18 Diet: Carb consistent LOW DVT ppx: Enoxaparin 40mg SC HS GI ppx: Protonix 40mg qD IV lines: 2 pIV Central line: No Arterial line: No Johnston: No Code status: FULL CODE Plan of care discussed with Attending Dr. Betina Soto M.D. PGY2 Disclaimer: Minor errors in senior clinical sas programmer may be present as this note was dictated using voice recognition software. Attending Provider Attestation/Addendum Patient seen and examined with above resident, Zaid Soto MD. I agree with the findings, assessment, and plan of care as documented separately differences below. Patient with resolution of DKA. Patient started on Abilify which was a historic med that she had did not continue. Significant improvement in her anxiety associated with possible withdrawal from multiple agents. Patient is doing well this morning with transition to subcutaneous regimen. Tolerating p.o. Patient has had adequate fluid resuscitation. Will complete course of antibiotic for urinary tract infection. Patient will be transition to medicine narvaez for ongoing management prior to discharge in coming days. Total critical care time: I personally spent 30 minutes for review of physiologic parameters, directing plan of care throughout the day, coordination of care with other specialist, and counseling patient at bedside. This is exclusive of time spent teaching housestaff performing separate billable procedures. Patient remained at significant risk for further morbidity and mortality warranting close monitoring and care only available in the ICU. Patient required critical care services. DKA, SIRS without localized infection, polysubstance abuse, and urinary tract infection.
[2024-08-18 08:13] LABS: Iron 45 mcg/dL (50-170); Percent Iron Saturation 15 % (20-55); Total Iron Binding Capacity 287 mcg/dL (250-425); Unsaturated Iron Binding 242 (225-295)
[2024-08-18] MEDS: VIT B12/Vit C/FA (Nephrovite) TABLET 1 TAB PO (08:26)
[2024-08-18] MEDS: cefTRIAXone/D5w 1gm IV premix 1 GM/50 ML BAG IV (08:27)
[2024-08-18 09:42] LABS: Chlamydia trachomatis PCR Negative (Not Detect); Neisseria Gonorrhoeae DNA PCR Negative (Not Detect); Trichomonas Negative (Negative)
[2024-08-18] MEDS: BuPROPion HCL XL 150 MG TABCR PO (10:20)
[2024-08-18] MEDS: CIPROFLOXACIN HCL 250 MG TABLET 500 MG PO (12:12)
[2024-08-18] MEDS: LEVOTHYROXINE SODIUM 88 MCG TABLET PO (12:31)
--- NOTE | 2024-08-18 16:07 | ESPR_ITS ---
<Statement entered by Ady Cohen MD - 08/19/24 07:12> I discussed with and supervised the creative services intern physician involved in the care of this patient. Patient assessment and plan was discussed with entire medicine team, including my attending. I agree with the assessment and plan as documented by creative services intern doctor. Patient care was discussed with my attending physician Dr. Nuvia Cohen, PGY-2 Documentation for date of: 08/18/24 Subjective Subjective Interval history: In summary: 29-year-old female with a history of IDDM type II, hypothyroidism, polysubstance use disorder, who presented with confusion, nausea, vomiting, and abdominal pain after running out of short-acting insulin and increasing doses of long-acting insulin. She also reported recent use of methamphetamine and cocaine. On evaluation, she was diagnosed with diabetic ketoacidosis and a urinary tract infection, with lab results indicating severe metabolic acidosis, elevated potassium, and lactic acid levels. She was admitted to the ICU for treatment, including insulin infusion and antibiotics. Over the next 24 hours, the patient exhibited withdrawal symptoms from methamphetamine and cocaine, which were managed with lorazepam and Xanax. Her clinical condition improved, with labs showing a reduction in metabolic abnormalities and resolution of acute kidney injury. By the following day, her symptoms had stabilized, she was tolerating a diet, and her mentation had returned to baseline. She was transitioned to subcutaneous insulin and prepared for transfer to a lower level of care for continued management. No acute overnight events. Feels tired this morning, however reports no new or worsening symptoms. Tolerating oral intake without nausea or vomiting. Denies fever, chills, headaches, chest pain, sob, cough, GI or urinary symptoms. Exam Vital Signs Temp Pulse Resp BP Pulse Ox O2 Del Method O2 Flow Rate 97.3 F 68 16 105/73 94 L Room Air 2 08/18/24 14:08/18/24 14:00 08/18/24 14:08/18/24 14:08/18/24 14:08/18/24 14:08/17/24 05:45 Narrative Exam Constitutional Alert, oriented x 3. Young female. HEENT Vision grossly intact. Patent nares. Trachea midline Respiratory Chest normal on inspection and clear auscultation bilaterally Cardiovascular S1 and S2 audible, RRR. No murmurs carotid bruit. No gross JVD. Abdominal Soft, non tender to palpation in all quadrants. BS + Genitourinary No bladder tenderness, left flank pain. Normal to palpation Musculoskeletal Extremities tone within normal limits. No LE edema. Neurological CN II - XII grossly intact. Extremity motor and sensation grossly intact. Skin Warm, dry and intact. No apparent lesions. Psychiatric Patient has good affect, is cooperative Objective Labs 08/18/24 04:34 08/18/24 04:34 Labs: Laboratory Results - last 24 hr 08/17/24 08/17/24 08/17/24 03:18 15:20 17:48 WBC RBC Hgb Hct MCV MCH MCHC RDW Std Deviation Plt Count Neut % (Auto) Lymph % (Auto) [place] % (Auto) Eos % (Auto) Baso % (Auto) Neut # (Auto) Lymph # (Auto) [place] # (Auto) Eos # (Auto) Baso # (Auto) Immature Gran # (Auto) Absolute Nucleated RBC Immature Gran % Nucleated RBC % Sodium 134 L 134 L Potassium 3.7 3.2 L D Chloride 101 101 Carbon Dioxide 20.4 19.5 L Anion Gap 13 14 BUN 7 L 6 L Creatinine 1.0 0.9 Estim Creat Clear Calc 82.2 91.4 eGFR > 60 > 60 BUN/Creatinine Ratio 7 L 7 L Glucose 144 H 149 H Calculated Osmolality 269 L 268 L Calcium 8.1 L 8.2 L Corrected Calcium 8.6 8.6 Phosphorus 1.6 L 1.3 L Magnesium 1.8 Iron TIBC Iron Saturation Unsat Iron Binding Albumin 3.4 L D 3.5 Chlam trachomat DNA PCR Negative N.gonorrhoeae DNA (PCR) Negative Trichomonas DNA Probe Negative 08/18/24 04:34 WBC 13.6 H D RBC 3.67 L Hgb 10.3 L D Hct 30.1 L MCV 82 MCH 28.1 MCHC 34.2 RDW Std Deviation 46.4 H Plt Count 286 D Neut % (Auto) 63 Lymph % (Auto) 28 [place] % (Auto) 6 Eos % (Auto) 1 Baso % (Auto) 1 Neut # (Auto) 8.6 H Lymph # (Auto) 3.9 [place] # (Auto) 0.9 H Eos # (Auto) 0.1 Baso # (Auto) 0.1 Immature Gran # (Auto) 0.12 H Absolute Nucleated RBC 0.00 Immature Gran % 1 H Nucleated RBC % 0 Sodium 135 L Potassium 4.1 D Chloride 100 Carbon Dioxide 21.3 Anion Gap 14 BUN < 5 L Creatinine 1.0 Estim Creat Clear Calc 82.2 eGFR > 60 BUN/Creatinine Ratio 5 L Glucose 289 H D Calculated Osmolality 278 Calcium 8.2 L Corrected Calcium 8.8 Phosphorus 2.2 L Magnesium 1.8 Iron 45 L TIBC 287 Iron Saturation 15 L Unsat Iron Binding 242 Albumin 3.2 L Chlam trachomat DNA PCR N.gonorrhoeae DNA (PCR) Trichomonas DNA Probe ABG Interpretation ABG results: 08/17/24 03:04 ABG pH 7.15 L* ABG pCO2 10 L* ABG pO2 173 H ABG HCO3 3 L* ABG O2 Saturation 100 H ABG Base Excess -23 L Quality Measures Quality Measures none Assessment & Plan Assessment Current Active Medications: Generic Name Dose Route Start Last Admin Trade Name Freq PRN Reason Stop Dose Admin Aripiprazole 10 mg 08/17/24 21:00 08/17/24 20:32 Aripiprazole 5 Mg Tablet PO 09/16/24 20:59 10 mg HS TRUDI Administration Bupropion HCl 150 mg 08/19/24 09:00 Bupropion Hcl Xl 150 Mg Tabcr PO 09/18/24 08:59 QDAY TRUDI Ciprofloxacin 500 mg 08/18/24 11:15 08/18/24 12:12 Ciprofloxacin Hcl 250 Mg Tablet PO 08/22/24 22:00 500 mg BID TRUDI Administration Dextrose 25 ml 08/17/24 08:43 Dextrose 50%-Water Inj 50 Ml Syringe IV [id number] PRN Blood Sugar - Low Dextrose 50 ml 08/17/24 18:59 Dextrose 50%-Water Inj 50 Ml Syringe IV 09/16/24 18:58 Q15MIN PRN BG <50 OR BG <70 & pt unresponsive Enoxaparin Sodium 40 mg 08/17/24 21:00 08/17/24 20:33 Enoxaparin Sod Inj 40 Mg/0.4 Ml Syringe SC 08/31/24 20:59 40 mg HS TRUDI Administration Glucagon 1 mg 08/17/24 18:59 Glucagon Inj 1 Mg Vial IM Q15MIN PRN BG <70, and no IV access Insulin Glargine 25 unit 08/18/24 21:00 Insulin Glargine (Lantus) 5 Unit/0.05 Ml (Per 5 Units) SC 08/18/24 21:01 X1 ONE Insulin Glargine 35 unit 08/19/24 21:00 Insulin Glargine (Lantus) 5 Unit/0.05 Ml (Per 5 Units) SC 09/18/24 20:59 HS TRUDI Insulin Human Lispro 0 unit 08/17/24 21:00 08/18/24 12:13 Insulin Lispro (Admelog) 1 Unit/0.01 Ml Unit SC 09/16/24 20:59 2 unit ACHS [facility] Administration Protocol Insulin Human Lispro 5 unit 08/18/24 08:00 08/18/24 12:13 Insulin Lispro (Admelog) 1 Unit/0.01 Ml Unit SC 09/17/24 07:59 5 unit TIDWM TRUDI Administration Levothyroxine Sodium 88 mcg 08/18/24 11:20 08/18/24 12:31 Levothyroxine Sodium 88 Mcg Tablet PO 09/17/24 11:19 88 mcg ACBR TRUDI Administration Ondansetron HCl 4 mg 08/17/24 15:41 Ondansetron Inj 2 Mg/Ml Inj 2 Ml IVP 09/16/24 15:40 Q6HR PRN NAUSEA OR VOMITING Protocol Phenazopyridine HCl 100 mg 08/17/24 14:00 08/18/24 13:46 Phenazopyridine Hcl 100 Mg Tablet PO 08/19/24 06:01 100 mg Q8HR TRUDI Administration Vitamin B Complex/Vit C/Folic Acid 1 tab 08/18/24 09:00 08/18/24 08:26 Vit B12/Vit C/Fa (Nephrovite) Tablet PO 09/17/24 08:59 1 tab QDAY TRUDI Administration Plan 29-year-old female PMHx of IDDM type II with recurrent DKA admission, hypothyroidism, polysubstance use disorder who admitted to ICU for DKA. Gap closed x 2, patient downgraded to floors. DKA IDDM type II with recurrent DKA A1c 11.7. Presented with significant hyperglycemia, glucosuria, and elevated gap. Completed INSULIN drip in ICU, gap closed x 2. Has recurrent DKA, patient states she ran out of her INSULIN supply at this time. ? INSULIN GLARGINE 25 units HS ? Insulin lispro 5 units TID ? INSULIN sliding scale ? Accu-Cheks ? Consulted vascular dietitian UTI, likely GNR Reported dysuria on admission, UA positive for UTI. Had leukocytosis on admission, likely combination of DKA and UTI, and is improving. Previously on CEFTRIAXONE (08/17 to 08/18). No cultures ordered. 24-hour blood culture negative. ? Continued on CEFEPIME BID (08/18 to present) ? Continue PHENAZOPYRIDINE 100 mg q.8h. Normocytic anemia Hgb 10.3, baseline 12.9. No signs of active bleed. Iron stores are low. ? Discharged on iron supplements once infection resolves Hypothyroidism ? Continued home LEVOTHYROXINE 88 mcg Generalized anxiety disorder Polysubstance use disorder ? Continue home ABILIFY 10 mg daily ? BUPROPION 150 mg q. day for anxiety Lactic acidosis (resolved) In settings of DKA. Resolved with fluids and glycemic control. Health maintenance Diet: CHO consistent GI prophylaxis: Not indicated DVT prophylaxis: LOVENOX Antibiotics: CEFEPIME CODE STATUS: Full code Disposition: ICU downgrade, continue treating DKA Case was discussed with attending physician and senior resident. King Montilla DO PGYI This document was transcribed using voice recognition technology. Minor inaccuracies may be present. Attending Provider Attestation/Addendum Derrick, Valeria Pedersen DO, attest that I was physically present for the inman portions of the service and evaluated the patient with the resident and I reviewed and discussed the case with the resident and agree with the resident's findings and plans of care as documented above Patient seen and evaluated this afternoon. Patient has been downgraded from ICU after she was admitted for DKA. Patient states that she has been having issues controlling her blood glucose well. She states that she was prescribed 18 units of basal insulin twice a day with insulin sliding scale. Patient counts her carbs as well using on average about 30 units of the sliding scale daily. However, she states that she has run out of insulin at home since she has been requiring more insulin than prescribed. She states that she needs about 25 units twice daily of basal insulin. She states that she is feeling much better today. Will start patient on 25 units of glargine twice a day with sliding scale. Will uptitrate as needed. If blood glucose is well-controlled, anticipate discharge in the next 24 hours. She does check her sugars with a glucometer at home. Offered patient a Intellutione, but she also states that her phone is likely not able to accommodate the [employer] aris.
--- NOTE | 2024-08-18 16:09 | PC.SS ---
FAMILY PRACTICE MEDICAL DOCTOR conducted bedside contact with the patient conduct initial assessment and to discuss discharge planning.? Patient confirmed demographic information.? Patient resides at home with aunt.? Patient does not utilize any form of DME to assist with ambulation.? Patient does not utilize home oxygen.? Patient describes the ability to complete ADL?s independently.? Patient declined to identify a surrogate medical decision maker.? Patient?s PCP is YESENIA Booker.? Patient does not participate with dialysis.? Patient does not possess any specialty providers.? Patient possesses history of diabetes, insulin dependent.? Patient utilizes [facility] for medication services.? Plan is for the patient to return home at the time of discharge.? Family will provide transportation on behalf of the patient. ?No further discharge needs identified by the patient.? No further intervention required at this time, director social will be available to address any further concerns.? Next of Kin: Declined D/C Plan: Home
--- NOTE | 2024-08-18 20:36 | PC.NURSE ---
Addendum entered by Christie Rolle RN 08/18/24 20:44: BS checked proir to leaving ( 278) pt offered insulin with requirement to have to recheck BS. Pt refused. 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 Dr fuentes notified and came to bedside. Pt educated by dr fuentes about severe risks of leaving AMA without completing treatment, including . Pt A/O X 4 and independent. She still states she understands and will return to ER if symptoms persist. Pt signed AMA form, 2 IV's removed, pt independent and being picked up by her aunt. Pt left the floor at 2030.
--- NOTE | 2024-08-18 20:41 | PD.RESEVENT ---
Documentation for date of: 08/18/24 Event Note Event Note: I was called to assess 29-year-old female with history of IDDM, hypothyroidism, and polysubstance use who was downgraded from the ICU to the medical floors today. Patient wanted to leave AMA as she did not have anybody who cared care for her children at this time. She stated that she understood all the risk about going back into DKA and that right now pharmacies were not open for her to get her insulin even if it was prescribed. All risks and benefits of staying were discussed with the patient and she understood these risks with included but are not limited to another episode of DKA, seizures, and including . At this time patient was AO x 5 and stated that she was still want to leave AGAINST MEDICAL ADVICE. I advised the patient to see her primary care physician tomorrow first thing in the morning so that he can refill any of her medications if required. She stated she understand that she will go see her primary care physician tomorrow first thing in the morning for follow-up. Told patient she had long acting insulin scheduled at 10:00 pm and I wanted to monitor her for possible hypoglycemia if it was given, but she still insisted on leaving AMA without getting the dose. She stated she was running out of her insulin, but would see her PCP first thing in the morning and get refills. Case disclosed with Attending Dr. Dennise Nuñez PGY1 Disclaimer: Even though this this note was dictated by speech recognition and even though it was carefully revised there may still be minor errors in school transportation supervisor due to voice recognition software.
== END 2024-08-18 20:30 | disposition left against medical advice (07) | DRG 420 ==
LOC: SERX 05:39 → SERHOLD 05:41 → S2SX 07:16 → S3SX 08-18 13:59
PROVIDERS: Student in an Organized Health Care Education/Training Program; Admitting Provider Student in an Organized Health Care Education/Training Program; Emergency Provider Emergency Medicine; Visit Provider Student in an Organized Health Care Education/Training Program
DX: E11.10 Type 2 diabetes mellitus with ketoacidosis without coma (principal); G93.41 Metabolic encephalopathy; N17.9 Acute kidney failure, unspecified; N39.0 Urinary tract infection, site not specified; F14.129 Cocaine abuse with intoxication, unspecified; F15.129 Other stimulant abuse with intoxication, unspecified; D64.9 Anemia, unspecified; E03.9 Hypothyroidism, unspecified; F15.10 Other stimulant abuse, uncomplicated; F41.1 Generalized anxiety disorder; T38.3X6A Underdosing of insulin and oral hypoglycemic [antidiabetic] drugs, initial encounter; Z79.4 Long term (current) use of insulin; Z79.899 Other long term (current) drug therapy; Z91.148 Patient's other noncompliance with medication regimen for other reason; Z88.5 Allergy status to narcotic agent
CPT/HCPCS: 36415; 36600; 71045; 80053; 80069; 80307; 80320; 81001; 82010; 82140; 82150; 82248; 82550; 82803; 83036; 83540; 83550; 83605; 83690; 83735; 83880; 84145; 84439; 84443; 84484; 84703; 85025; 85610; 85652; 85730; 86140; 86703; 87040; 87081; 87400; 87491; 87591; 87661; 87811; 93005; 96360; 96361; 96365; 96374; 96375; 99291; J0696; J1650; J1815; J1885; J2060; J2405; J3475; J3480; J7030; J7120; J7121; J7999; A9270; G0480

== ENCOUNTER 2024-10-03 03:43 | Inpatient (IN) | payer MEDICAID, SELFPAY ==
[2024-10-03] VITALS (26 sets, daily range): BP systolic 78–132; BP diastolic 50–97; PULSE 56–112; RESP 10–100; TEMP 36.4–37.2; O2SAT 75–100; BMI 24.5; BMI 25.2
--- NOTE | 2024-10-03 04:01 | EDNOTE_ITS ---
ED General RME/HPI General Chief complaint: General Adult/Misc Complain Stated complaint: HYPERGLYCEMIA Time Seen by Provider: 10/03/24 03:59 Arrival date/time: 10/03/24 03:43 Limitations: no limitations RME / HPI RME / HPI narrative: Patient is a known longstanding insulin-dependent diabetic with history of noncompliance and rarely acknowledged illicit drug abuse now presenting with diffuse generalized lower abdominal pain/lower back pain having been off her insulin for proxy 4 days. Patient reports her family members may have discarded it inadvertently. Patient denied any fevers or chills. Does note polyuria polydipsia and recent weight loss approximately 20 pounds within the last several weeks. Related Data Home Medications ?Medication ?Instructions ?Recorded ?Confirmed buprenorphine 12 mg-naloxone 3 mg buccal 05/11/24 sublingual film Previous Rx's ?Medication ?Instructions ?Recorded aripiprazole 10 mg tablet 10 mg PO QDAY 9 days #9 tabs 12/08/23 blood sugar diagnostic (Accu-Chek #100 ea 12/08/23 SmartView Test Strips) blood-glucose meter (FreeStyle #1 ea 12/08/23 Haz[place] Lite kit) lancets 28 gauge (FreeStyle #100 ea 12/08/23 Lancets) lancets-blood glucose test #1 ea 12/08/23 strips-pen needles with gauze kit levothyroxine 88 mcg tablet 88 mcg PO QDAY 30 days #30 tabs 12/08/23 (Synthroid) pen needle, diabetic 29 gauge x #100 ea 12/08/23 1/2 (Comfort EZ Pen Wing) pen needle, diabetic 32 gauge x #100 ea 12/08/23 1/4 acetaminophen 325 mg tablet 650 mg (2 x 325 mg) PO Q6H PRN 05/14/24 (Tylenol) fever or pain #30 tabs blood-glucose sensor (FreeStyle #1 ea 07/13/24 Sofy 3 Plus Sensor device) blood-glucose,raised printer,cont #1 ea 07/13/24 (FreeStyle Sofy 3 [place]) insulin glargine 100 unit/mL (3 20 unit (0.2 mL) subcu t HS #15 mL 07/13/24 mL) subcutaneous pen insulin lispro 100 unit/mL 1 sliding scale dose subcut 07/13/24 subcutaneous pen (Admelog SoloStar USEASDIRECTD #15 mL U-100 Insulin lispro) sodium di- and 1 tab PO BID #4 tabs 07/13/ 5 monophosphate-potassium phos monobasic 250 mg tablet (F-Qufz-Xrwafoc) ferrous sulfate 325 mg (65 mg 325 mg PO QDAY #30 tabs 08/18/24 iron) tablet Allergies Allergy/AdvReac Type Severity Reaction Status Date / Time codeine Allergy Intermediate Abdominal Verified 08/17/24 06:20 Pain Review of Systems Review of Systems Narrative Review of Systems: GEN: No fever, no chills, no weight loss EYES: No discharge, no visual changes, no pain HEENT: No ear pain, no congestion, no sore throat PULM: No shortness of breath, no cough, no congestion CV: No chest pain, no dyspnea on exertion, no palpitations GI: As per HPI : No frequency, no urgency and no dysuria MUSC/SKEL: No joint pain, no back pain SKIN: No rash PSYCH: No hallucinations, no depression HEME/LYMPH: No easy bleeding or bruising tendencies NEURO: No weakness, no headache Past Medical History Past Medical History ENDOCRINE: Positive Diabetes Mellitus Type 1 and Hypothyroidism PSYCHO/SOCIAL: Positive Recreational Drug Use ED Exam Narrative Physical exam: Appears anxious complaining of nausea lower back and abdominal pain. General Limitations: Present no limitations General appearance: Present alert and in no apparent distress Head Head exam: Present atraumatic Eye Eye exam: Present normal appearance, PERRL and EOMI ENT ENT exam: Present normal exam, normal oropharynx and mucous membranes moist Neck Neck exam: Present normal inspection, full ROM and trachea midline Chest Chest inspection: Present normal inspection and symmetric chest wall rise Respiratory Respiratory exam: Present normal lung sounds bilaterally Cardiovascular Cardiovascular exam: Present regular rate, normal rhythm and normal heart sounds Abdominal Exam Abdominal exam: Present soft, distention (Nondistended), tenderness (Mildly tender diffuse lower abdomen. No guarding or peritoneal findings.) and normal bowel sounds Abdominal tenderness: Present diffuse and mild Extremities Exam Extremities exam: Present normal inspection and full ROM Back Exam Back exam: Present normal inspection and full ROM Neurological Exam Neurological exam: Present alert, oriented X3 and CN II-XII intact Psychiatric Psychiatric exam: Present normal affect and normal mood Skin Skin exam: Present warm, dry, intact and normal color Course Course Course Narrative: See below Quality Measures none Orders Category Date Time Status Bedside Blood Glucose STAT Care 10/03/24 05:20 Active Pharmaceutical Laboratory Technician STAT Care 10/03/24 05:20 Active DKA Protocol QSHIFT Care 10/03/24 05:20 Active [place] [Urinary Catheter] QS Care 10/03/24 05:16 Active [place] [Urinary Catheter] QS Care 10/03/24 05:17 Active [place] to Independence Routine Care 10/03/24 05:17 Ordered Insert IV STAT Care 10/03/24 05:20 Active Intake and Output Routine Care 10/03/24 05:20 Ordered NPO NOW Care 10/03/24 05:23 Active Notify provider NEEDED Care 10/03/24 05:20 Active Referral Registered Dietitian Routine Cons 10/03/24 05:20 Active Acetone [Beta Hydroxybutyrate] Stat Lab 10/03/24 04:30 Completed Arterial Blood Gas Stat Lab 10/03/24 06:07 Received CBC [CBC] Stat Lab 10/03/24 04:30 Completed CMP [Comprehensive Metabolic Panel] Stat Lab 10/03/24 04:30 Completed Glycohemoglobin w (eAG) Stat Lab 10/03/24 05:37 Completed HCG Qualitative,Urine Stat Lab 10/03/24 05:55 Received Lactate (Lactic Acid) Stat Lab 10/03/24 05:20 Ordered Magnesium Stat Lab 10/03/24 05:37 Completed Phosphorous Stat Lab 10/03/24 05:37 Completed Urinalysis, C/S if Indicated Stat Lab 10/03/24 05:55 Received Dextrose 5%-Lactated Ringers [D5-Lr] 1,000 ml Med 10/03/24 05:20 Active Pot Chl Additive [KCl Additive] 40 meq IV 250 mls/hr Dextrose 5%-Lactated Ringers [D5-Lr] 1,000 ml Med 10/03/24 05:20 Active IV 250 mls/hr Dextrose 50% Syr [D50w Syringe Abboject] Med 10/03/24 05:20 Active 25 ml IV PRNMRX1 PRN Insulin Regular Med 10/03/24 05:20 Discontinued 7.3 unit IV X1 ONE KCL 20 mEq/L in D5-LR Med 10/03/24 05:20 Active 20 meq in 1,000 ml IV 250 mls/hr Magnesium Sulfate 2 GM Ivpb [Magnesium Sulfate Ivpb] Med 10/03/24 05:20 Active 2 gm in 50 ml IV 25 mls/hr Morphine Inj Med 10/03/24 03:59 Discontinued 4 mg IVP X1 ONE Ondansetron Inj [Zofran Inj] Med 10/03/24 03:59 Discontinued 4 mg IVP X1 ONE POT PHOS 15 mMol in NS 250 ML [Pot Phos 15 mMol in NS Med 10/03/24 05:20 Active 250 ml] 15 mmol in 250 ml IV PRN POTASSIUM CHL 10 mEq IVPB [Kcl Ivpb] Med 10/03/24 05:20 Active 10 meq in 100 ml IV 100 mls/hr POTASSIUM CHL 10 mEq IVPB [Kcl Ivpb] Med 10/03/24 05:20 Active 10 meq in 100 ml IV PRN Pre-Mixed [Pre-mixed Bag] 1 bag Med 10/03/24 05:20 Active Insulin Reg 100 Units/100 ml [Myxredlin] 100 unit IV 0.1 unit/kg/hr Ringers Lactated 1000 ml [Lactated Ringers] 1,000 ml Med 10/03/24 05:20 Active Pot Chl Additive [KCl Additive] 20 meq IV 250 mls/hr Ringers Lactated 1000 ml [Lactated Ringers] 1,000 ml Med 10/03/24 05:20 Active Pot Chl Additive [KCl Additive] 40 meq IV 250 mls/hr Ringers Lactated 1000 ml [Lactated Ringers] 1,000 ml Med 10/03/24 05:20 Active IV 250 mls/hr Sodium Bicarb 8.4% SYR Med 10/03/24 05:20 Active 50 ml IV Q4HR PRN Sodium Chloride 0.9% 1000 ml [Ns] 1,000 ml Med 10/03/24 04:00 Discontinued IV 999 mls/hr Sodium Chloride 0.9% 1000 ml [Ns] 1,000 ml Med 10/03/24 04:50 Discontinued IV 999 mls/hr Sodium Chloride 0.9% 250 ml [Ns] 250 ml Med 10/03/24 05:20 Active Sod Phos Additive [NaPhos Additive] 15 mmol IV 62.5 mls/hr DKA protocol in place Vital Signs Vital signs: Vital Signs Temperature 97.6 F 10/03/24 04:06 Pulse Rate 100 10/03/24 04:06 Respiratory Rate 20 10/03/24 04:06 Blood Pressure 107/77 10/03/24 04:06 Pulse Oximetry (%) 100 10/03/24 04:06 Oxygen Delivery Method Room Air 10/03/24 04:06 Critical Care Time Critical Care Time Total Critical Care Time (min.): 45 Attestation: Critical care time spent with this patient was 45 minutes required my immediate intervention and after prevent progressive metabolic acidosis leading to cardiac complications. This was includes continuous bedside management, review laboratory radiographic data, serial exam/consultation was not included below procedures. Discharge Plan Plan Patient Disposition: Admit Acute Care w/in Hospital Prescriptions/Referrals Prescriptions/Med Rec: No Action (DME) Accu-Chek SmartView Test Strip Strip See Rx Instructions .Route Qty: 100 5RF Rx Instructions: As directed levothyroxine [Synthroid] 88 MCG tablet 88 mcg PO QDAY 30 Days Qty: 30 3RF (DME) blood-glucose meter [FreeStyle [place]] Kit See Rx Instructions .Route Qty: 1 0RF Rx Instructions: As directed (DME) pen needle, diabetic [Comfort EZ Pen Wing] 29 gauge x 1/2 needle See Rx Instructions .Route Qty: 100 0RF Rx Instructions: As directed aripiprazole 10 mg tablet 10 mg PO QDAY 9 Days Qty: 9 0RF (DME) pen needle, diabetic 32 gauge x 1/4 needle See Rx Instructions .Route Qty: 100 0RF Rx Instructions: As directed (DME) lancets [FreeStyle Lancets] 28 gauge Misc Qty: 100 0RF Rx Instructions: Test BID (DME) lancet-gluc dbpfl-nnejay-lsxzh Kit See Rx Instructions .Route Qty: 1 5RF Rx Instructions: As directed acetaminophen [Tylenol] 325 mg tablet 650 mg PO Q6H PRN (Reason: fever or pain) Qty: 30 0RF buprenorphine-naloxone 12-3 mg film BUCCAL Patient Comments: dissolve 1 FILM under the tongue once daily insulin glargine 100 unit/mL (3 mL) insulin pen 20 unit subcut HS Qty: 15 0RF insulin lispro [Admelog SoloStar U-100 Insulin] 100 unit/mL insulin pen 1 sliding scale dose subcut USEASDIRECTD Qty: 15 0RF (DME) FreeStyle Sofy 3 Plus Sensor Device See Rx Instructions .Route Qty: 1 0RF Rx Instructions: As directed (DME) FreeStyle Sofy 3 [place] [facility] See Rx Instructions .Route Qty: 1 0RF Rx Instructions: As directed V-Ckzs-Isyluse 250 mg tablet 1 tab PO BID Qty: 4 0RF ferrous sulfate 325 mg (65 mg iron) tablet 325 mg PO QDAY Qty: 30 0RF Referrals: No Primary/Family,Physician [Primary Care Provider] - In 1 week Problem List Clinical Impression: Diabetic ketoacidosis without coma, Dehydration, Acute kidney injury Patient/Caregiver Discharge Instructions Print Language: Sinhala Stand Alone Forms: Kourtney Award Info., Patient Portal Info Letter MDM Narrative [facility] hospital course: MDM Patient is a known longstanding insulin-dependent diabetic with history of noncompliance and rarely acknowledged illicit drug abuse now presenting with diffuse generalized lower abdominal pain/lower back pain having been off her insulin for proxy 4 days. Patient reports her family members may have discarded it inadvertently.. Please see PE finding. Laboratory markers demonstrated elevated ion gap metabolic acidosis with elevated beta hydroxybutyrate of 6.4. Initial blood sugar in the mid 500 range. Patient received aggressive fluid hydration to correct volume depletion and DKA protocol initiated. Initial bolus given followed by infusion. Case discussed with ICU industrial real estate agent. Patient will be admitted this a.m. Patient remained hemodynamically stable without signs of sepsis. Clinical Information Provided by patient Medical Records Reviewed [facility] Meds/Rx Considered, not Ordered Describe details: N/A Labs/Rad/Tests considered, not Ordered Describe details: N/A Chronic Illness/Social Conditions which may negatively complicate care or outcome(s)-explain: Hx of noncompliance and ETOH/drugs/substance abuse Lab Interpretation Labs: interpreted by nv Lab(s) interpretation(s): See above Medication Administration(s) Medication Administration History Dextrose (Dextrose 50%-Water Inj 50 Ml Syringe) 25 ml IV PRNMRX1 PRN PRN Reason: Blood Sugar - Low Potassium Chloride (Kcl Ivpb) 10 meq in 100 mls @ 100 mls/hr IV .Q1H PRN PRN Reason: IF POTASSIUM LESS THAN 3.3 Stop: 11/02/24 05:19 Magnesium Sulfate (Magnesium Sulfate Ivpb) 2 gm in 50 mls @ 25 mls/hr IV .Q2H PRN PRN Reason: PER DKA PROTOCOL Stop: 11/02/24 05:19 Insulin Human Regular 100 unit (/ IV Miscellaneous Supplies) 100 mls @ 7.309 mls/hr IV .[id number] PRN; Protocol PRN Reason: PER PROTOCOL Stop: 11/02/24 05:19 Dextrose/Lactated Ringer's (D5-Lr) 1,000 mls @ 250 mls/hr IV .Q4H PRN PRN Reason: PER PROTOCOL Stop: 11/02/24 05:19 Lactated Ringer's (Lactated Ringers) 1,000 mls @ 250 mls/hr IV .Q4H PRN PRN Reason: PER PROTOCOL Stop: 10/04/24 05:19 Potassium Chloride 20 meq/ (Lactated Ringer's) 1,010 mls @ 250 mls/hr IV .Q4H3M PRN PRN Reason: K LEVEL 3.3 TO 5.3mM/L Stop: 11/02/24 05:19 Potassium Chloride 40 meq/ (Lactated Ringer's) 1,020 mls @ 250 mls/hr IV .Q4H5M PRN PRN Reason: K LEVEL < 3.3 mM/L Stop: 11/02/24 05:19 Potassium Chloride 40 meq/ (Dextrose/Lactated Ringer's) 1,020 mls @ 250 mls/hr IV .Q4H5M PRN PRN Reason: K LEVEL < 3.3mM/L Stop: 11/02/24 05:19 Potassium Cl/Dextrose/Lact Ringer's (Kcl 20 Meq/L In D5-Lr) 20 meq in 1,000 mls @ 250 mls/hr IV .Q4H PRN PRN Reason: K LEVEL 3.3 TO 5.3 mM/L Potassium Chloride (Kcl Ivpb) 10 meq in 100 mls @ 50 mls/hr IV PRN PRN PRN Reason: K LEVEL 3.3 to 5.3 & BG > 200 Stop: 11/02/24 05:19 Potassium Phosphate (Pot Phos 15 Mmol In Ns 250 Ml) 15 mmol in 250 mls @ 62.5 mls/hr IV PRN PRN PRN Reason: Phosphate <= 1mg/dL Stop: 11/02/24 05:19 Sodium Phosphate 15 mmol/ (Sodium Chloride) 255 mls @ 62.5 mls/hr IV .Q4H5M PRN PRN Reason: Phosphate <= 1mg/dL and K> than 5.3 Stop: 11/02/24 05:19 Sodium Bicarbonate (Sodium Bicarb Inj 8.4% Syr 50 Ml Syringe) 50 ml IV Q4HR PRN PRN Reason: For ph <= to 7.0 Stop: 11/02/24 05:19 Discontinued Medications Sodium Chloride (Ns) 1,000 mls @ 999 mls/hr IV .Q1H1M ONE Stop: 10/03/24 05:00 Last Infusion: 10/03/24 05:00 Dose: Infused Documented By: Admin: 10/03/24 04:16 Dose: 999 mls/hr Documented By: HARRISON Sodium Chloride (Ns) 1,000 mls @ 999 mls/hr IV .Q1H1M ONE Stop: 10/03/24 05:50 Last Infusion: 10/03/24 05:45 Dose: Infused Documented By: Admin: 10/03/24 04:53 Dose: 999 mls/hr Documented By: HARRISON Insulin Human Regular (Insulin Hum Regular 1 Unit/0.01 Ml (Per Unit)) 7.3 unit 0.1 unit/kg (7.3 unit) IV X1 ONE Stop: 10/03/24 05:21 Last Admin: 10/03/24 05:43 Dose: 7.3 unit Documented By: HARRISON Co-signed By: MATT Morphine Sulfate (Morphine Sulf Inj 10 Mg/Ml Vial) 4 mg IVP X1 ONE Stop: 10/03/24 04:00 Last Admin: 10/03/24 04:14 Dose: 4 mg Documented By: HARRISON Ondansetron HCl (Ondansetron Inj 2 Mg/Ml Inj 2 Ml) 4 mg IVP X1 ONE; Protocol Stop: 10/03/24 04:00 Last Admin: 10/03/24 04:16 Dose: 4 mg Documented By: HARRISON
[2024-10-03] MEDS: MORPHINE SULF INJ 10 MG/ML VIAL 4 MG IVP (04:14)
[2024-10-03] MEDS: ONDANSETRON INJ 2 MG/ML INJ 2 ML 4 MG IVP (04:16)
[2024-10-03] MEDS: SODIUM CHLORIDE 0.9% 1000 ML 1,000 ML 999 ML IV ×2 (04:16→04:53)
[2024-10-03 04:36] LABS: Basophils # (Auto) 0.1 Thou/mm3 (0.0-0.2); Basophils % (Auto) 0 % (0-2.5); Eosinophils # (Auto) 0.0 Thou/mm3 (0.0-0.5); Eosinophils % (Auto) 0 % (0-10); Hematocrit 43.4 % (36.0-46.0); Hemoglobin 14.8 g/dL (12.0-16.0); Immature Granulocytes Auto 0.08 Thou/mm3 (0.00-0.00); Lymphocytes # (Auto) 2.2 Thou/mm3 (1.0-4.8); Lymphocytes % (Auto) 15 % (10-50); Mean Corpuscular HGB Conc 34.1 g/dl (31.0-37.0); Mean Corpuscular Hemoglobin 28.5 pg (25.0-35.0); Mean Corpuscular Volume 84 fL (80-100); Monocytes # (Auto) 0.5 Thou/mm3 (0.0-0.8); Monocytes % (Auto) 3 % (0-12); Neutrophils # (Auto) 11.5 Thou/mm3 (1.8-7.7); Neutrophils % (Auto) 80 % (37-80); Nucleated Red Blood Cell # 0.00 Thou/mm3 (0.00-0.00); Nucleated Red Blood Cell % 0 /100 WBC (0); Platelet Count 337 Thou/mm3 (140-440); RDW Standard Deviation 42.9 fL (36.4-46.3); Red Blood Count 5.20 Miln/mm3 (4.00-5.20); White Blood Count 14.3 Thou/mm3 (3.6-11.0)
[2024-10-03 04:40] LABS: Beta Hydroxybutyrate > 6.4 mmol/L (<0.6)
[2024-10-03 05:09] LABS: Alanine Aminotransferase 14 U/L (10-49); Albumin, Serum 4.9 gm/dL (3.5-5.0); Albumin/Globulin Ratio 1.8 (1.2-2.2); Alkaline Phosphatase 121 U/L (46-116); Aspartate Amino Transferase 15 U/L (0-34); BUN/Creatinine Ratio 8 Ratio (12-20); Bilirubin,Total 0.8 mg/dL (0.3-1.2); Blood Urea Nitrogen 12 mg/dL (9-23); Calcium 9.7 mg/dL (8.3-10.6); Calcium (Corrected) 9.7 mg/dL (8.5-10.1); Chloride 92 mMol/L (98-107); Creatinine (Component) 1.5 mg/dL (0.6-1.3); Estimated Creatinine Clearance 54.8 mL/min (>60); Globulin 2.7 gm/dL (2.3-3.5); Potassium 4.6 mMol/L (3.4-5.1); Sodium 127 mMol/L (136-145); Total Protein 7.6 gm/dL (5.7-8.2); eGFR 47 See Note
[2024-10-03] MEDS: INSULIN HUM REGULAR 1 UNIT/0.01 ML (PER UNIT) 7.3 UNIT IV (05:43)
[2024-10-03 05:57] LABS: Glucose Estimated Average 306 mg/dL (80-131); Hemoglobin A1C 12.3 % Hgb (4.8-6.0)
[2024-10-03 06:00] LABS: Collection Type, Urine Clean Catch
[2024-10-03 06:01] LABS: Magnesium 1.8 mg/dL (1.6-2.6); Phosphorous 4.2 mg/dL (2.4-5.1)
[2024-10-03 06:08] LABS: Bilirubin,Urine Negative (Negative); Blood,Urine Negative (Negative); Clarity,Urine Clear (Clear/Hazy); Color,Urine Colorless (Lt Yel-Yel); Culture Indicated,Urine Not Indicated; Glucose, Urine 4+ (Negative); Ketones,Urine 4+ (Negative); Leukocyte Esterase,Urine Negative (Negative); Nitrite,Urine Negative (Negative); PH,Urine 5.5 (5.0-7.0); Protein,Urine Trace (Neg - Trace); RBC,Urine 3 /hpf (0-3); Specific Gravity,Urine 1.029 (1.001-1.035); Squamous Epithelial Cell,Urine 4 /hpf (0-5); Urobilinogen,Urine Negative mg/dL (0.0-1.0); WBC,Urine 3 /hpf (0-5)
[2024-10-03 06:09] LABS: Anion Gap 25 (7-16); Osmolality,Calculated 277 (275-295)
[2024-10-03 06:11] LABS: Carbon Dioxide < 10.0 mMol/L (20.0-31.0); Glucose 507 mg/dL (74-106)
[2024-10-03 06:16] LABS: Base Excess -21 (-3-3); HCO3 6 mEq/L (20-26); Inspired Oxygen, FIO2 21 %; O2 Saturation 98 % (91-98); PCO2 17 mmHg (32.0-48.0); PO2 123 mmHg (83-108)
[2024-10-03 06:18] LABS: Allen Test Not Performed; Puncture Site Site Not Noted
[2024-10-03] MEDS: INSULIN REG 100 UNITS/100 ML 100 UNIT in PRE-MIXED 1 BAG 7.309 UNIT IV (06:21)
[2024-10-03 06:22] LABS: HCG Qualitative,Urine Negative
[2024-10-03] MEDS: RINGERS LACTATED 1000 ML 1,000 ML 250 ML IV (06:23)
[2024-10-03 06:24] LABS: pH, Arterial 7.15 (7.35-7.45)
--- NOTE | 2024-10-03 07:29 | ESHP_ITS ---
Documentation for date of: 10/03/24 HPI History of Present Illness History of present illness: Patient is a 29-year-old female with past medical history of poorly controlled type 1 diabetes, recurrent admissions for DKA, and multisubstance illicit drug use who presented to the ED on 10/03/2024 with a complaint of nausea, vomiting, and abdominal pain after being off of her insulin for about 4 days. Patient reports she has been on a downward spiral in the last few days taking lots of street drugs, anything she can get her hands on, and has been homeless. Patient states that her insulin may have been thrown out. She has also been moving from friend to friend's places. Patient otherwise denies any fevers, chills, sweats, shortness of breath, cough, dysuria, or change in bowel habits. Patient endorses suicidal ideation. Expresses remorse for her behavior and wants to go to rehab. Patient reports she recently had her child taken away from her. ED Course: -Initial vitals were BP 107/77, HR 100, RR 20, Temp 97.6, O2 100% on room air -Labs significant for WBC 14.3. ABG showed pH 7.15, pCO2 17, pO2 123, HCO3 6. Chem panel showed bicarb <10, Na 127, Cl 92, anion gap of 25, creatinine 1.5, GFR 47, glucose 507, BHB 6.4. -UA showed 4+ glucose and 4+ ketones and negative for leukocyte esterase -In the ED, patient was given 4 mg IV morphine x1, 2L NS IV fluid, 4 mg IV Zofran x1, 7.3 U regular insulin, and started on insulin drip with DKA protocol. -Patient was admitted to the ICU for DKA management Review of Systems Review of systems otherwise negative except what is mentioned above. Past Medical History Past Medical History Comments PMH COMMENT: Past Medical History: Type 1 diabetes, multisubstance illicit drug use Family History: Positive for family history of psychiatric disorders and cancers Surgical History: Social History: Vaping daily, denies current alcohol use, current illicit drug use including meth daily, cocaine occasionally. Current Medications: Pending med rec Allergies: No known drug allergies Exam Vital Signs Temp Pulse Resp BP Pulse Ox O2 Del Method 97.8 F 105 H 20 132/62 H 100 Room Air 10/03/24 06:08 10/03/24 06:08 10/03/24 06:08 10/03/24 06:08 10/03/24 06:08 10/03/24 06:08 Narrative Exam Physical Exam General: Awake and in mild distress. Conversational and chronically ill- appearing. HEENT: Normocephalic, atraumatic, mucous membranes dry. Heart: Regular rate and rhythm, normal S1 and S2, no murmurs. Lungs: Clear to auscultation with no wheezing or crackles. Abdomen: Soft, nondistended, nontender, positive bowel sounds. ?No guarding or rebound tenderness. Neurologic: Alert and oriented x3, no gross neurological deficit, and patient able to move all 4 extremities. Extremities: No edema. Skin: No rash or ecchymoses. Results: Labs 10/04/24 06:30 10/04/24 05:28 Labs: Short CBC 10/03/24 Range/Units 04:30 WBC 14.3 H (3.6-11.0) Thou/mm3 Hgb 14.8 (12.0-16.0) g/dL Hct 43.4 (36.0-46.0) % Plt Count 337 (140-440) Thou/mm3 BMP 10/03/24 04:30 Sodium 127 L Potassium 4.6 Chloride 92 L Carbon Dioxide < 10.0 L* BUN 12 Creatinine 1.5 H Glucose 507 H* Calcium 9.7 Liver Function 10/03/24 Range/Units 04:30 Total Bilirubin 0.8 (0.3-1.2) mg/dL AST 15 (0-34) U/L ALT 14 (10-49) U/L Alkaline Phosphatase 121 H (46-116) U/L Albumin 4.9 (3.5-5.0) gm/dL Urine 10/03/24 Range/Units 05:55 Urine Color Colorless A (Lt Yel-Yel) Urine Clarity Clear (Clear/Hazy) Urine pH 5.5 (5.0-7.0) Ur Specific Circle 1.029 (1.001-1.035) Urine Protein Trace (Neg - Trace) Urine Glucose (UA) 4+ A (Negative) ABG Interpretation ABG results: 10/03/24 06:07 ABG pH 7.15 L* ABG pCO2 17 L* ABG pO2 123 H ABG HCO3 6 L* ABG O2 Saturation 98 ABG Base Excess -21 L Quality Measures Quality Measures none Medications Home Medications and Allergies Home Medications ?Medication ?Instructions ?Recorded ?Confirmed ?Type buprenorphine 12 mg-naloxone 3 mg buccal 05/11/24 His tory sublingual film Allergies Allergy/AdvReac Type Severity Reaction Status Date / Time codeine Allergy Intermediate Abdominal Verified 08/17/24 06:20 Pain Visit Medications Acetaminophen (Acetaminophen 325 Mg Tablet) 650 mg PO Q4HR PRN PRN Reason: Fever >100.4 or Pain Scale 1-3 Stop: 11/02/24 07:23 Dextrose (Dextrose 50%-Water Inj 50 Ml Syringe) 25 ml IV [id number] PRN PRN Reason: Blood Sugar - Low Enoxaparin Sodium (Enoxaparin Sod Inj 40 Mg/0.4 Ml Syringe) 40 mg SC QDAY TRUDI Stop: 10/17/24 08:59 Potassium Chloride (Kcl Ivpb) 10 meq in 100 mls @ 100 mls/hr IV .Q1H PRN PRN Reason: IF POTASSIUM LESS THAN 3.3 Stop: 11/02/24 05:19 Magnesium Sulfate (Magnesium Sulfate Ivpb) 2 gm in 50 mls @ 25 mls/hr IV .Q2H PRN PRN Reason: PER DKA PROTOCOL Stop: 11/02/24 05:19 Insulin Human Regular 100 unit (/ IV Miscellaneous Supplies) 100 mls @ 7.309 mls/hr IV .[id number] PRN; Protocol PRN Reason: PER PROTOCOL Stop: 11/02/24 05:19 Last Admin: 10/03/24 06:21 Dose: 0.1 unit/kg/hr, 7.309 mls/hr Dextrose/Lactated Ringer's (D5-Lr) 1,000 mls @ 250 mls/hr IV .Q4H PRN PRN Reason: PER PROTOCOL Stop: 11/02/24 05:19 Lactated Ringer's (Lactated Ringers) 1,000 mls @ 250 mls/hr IV .Q4H PRN PRN Reason: PER PROTOCOL Stop: 10/04/24 05:19 Last Admin: 10/03/24 06:23 Dose: 250 mls/hr Potassium Chloride 20 meq/ (Lactated Ringer's) 1,010 mls @ 250 mls/hr IV .Q4H3M PRN PRN Reason: K LEVEL 3.3 TO 5.3mM/L Stop: 11/02/24 05:19 Potassium Chloride 40 meq/ (Lactated Ringer's) 1,020 mls @ 250 mls/hr IV .Q4H5M PRN PRN Reason: K LEVEL < 3.3 mM/L Stop: 11/02/24 05:19 Potassium Chloride 40 meq/ (Dextrose/Lactated Ringer's) 1,020 mls @ 250 mls/hr IV .Q4H5M PRN PRN Reason: K LEVEL < 3.3mM/L Stop: 11/02/24 05:19 Potassium Cl/Dextrose/Lact Ringer's (Kcl 20 Meq/L In D5-Lr) 20 meq in 1,000 mls @ 250 mls/hr IV .Q4H PRN PRN Reason: K LEVEL 3.3 TO 5.3 mM/L Potassium Chloride (Kcl Ivpb) 10 meq in 100 mls @ 50 mls/hr IV PRN PRN PRN Reason: K LEVEL 3.3 to 5.3 & BG > 200 Stop: 11/02/24 05:19 Potassium Phosphate (Pot Phos 15 Mmol In Ns 250 Ml) 15 mmol in 250 mls @ 62.5 mls/hr IV PRN PRN PRN Reason: Phosphate <= 1mg/dL Stop: 11/02/24 05:19 Sodium Phosphate 15 mmol/ (Sodium Chloride) 255 mls @ 62.5 mls/hr IV .Q4H5M PRN PRN Reason: Phosphate <= 1mg/dL and K> than 5.3 Stop: 11/02/24 05:19 Sodium Bicarbonate (Sodium Bicarb Inj 8.4% Syr 50 Ml Syringe) 50 ml IV Q4HR PRN PRN Reason: For ph <= to 7.0 Stop: 11/02/24 05:19 Discontinued Medications Sodium Chloride (Ns) 1,000 mls @ 999 mls/hr IV .Q1H1M ONE Stop: 10/03/24 05:00 Last Infusion: 10/03/24 05:00 Dose: Infused Sodium Chloride (Ns) 1,000 mls @ 999 mls/hr IV .Q1H1M ONE Stop: 10/03/24 05:50 Last Infusion: 10/03/24 05:45 Dose: Infused Insulin Human Regular (Insulin Hum Regular 1 Unit/0.01 Ml (Per Unit)) 7.3 unit 0.1 unit/kg (7.3 unit) IV X1 ONE Stop: 10/03/24 05:21 Last Admin: 10/03/24 05:43 Dose: 7.3 unit Morphine Sulfate (Morphine Sulf Inj 10 Mg/Ml Vial) 4 mg IVP X1 ONE Stop: 10/03/24 04:00 Last Admin: 10/03/24 04:14 Dose: 4 mg Ondansetron HCl (Ondansetron Inj 2 Mg/Ml Inj 2 Ml) 4 mg IVP X1 ONE; Protocol Stop: 10/03/24 04:00 Last Admin: 10/03/24 04:16 Dose: 4 mg Assessment & Plan Plan 29-year-old female with past medical history of poorly controlled type 1 diabetes, recurrent admissions for DKA, and multisubstance illicit drug use who presented to the ED on 10/03/2024 with a complaint of nausea, vomiting, and abdominal pain after being off of her insulin for about 4 days. On workup was found to be in DKA and admitted to ICU for further management and DKA protocol. NEURO Patient is awake, alert, and oriented x3, following commands, conversational. #No active problems CARDIO #No active problems PULM #No active problems GI #No active problems NEPHRO #Metabolic acidosis, secondary to #Diabetic ketoacidosis Patient endorses a few days without taking insulin ABG showed pH 7.15, pCO2 17, pO2 123, HCO3 6. Chem panel showed bicarb <10, Na 127, Cl 92, anion gap of 25. BHB >6.4 -Continue insulin drip and DKA protocol -IV fluids at 250 ml/hr -Repletion of potassium as needed -Renal panel q4h URO #Ketonuria UA showed 4+ glucose and 4+ ketones. Secondary to DKA. At this time no suspicion for UTI -Secondary to above, continue treatment HEME #Leukocytosis WBC 14.3, likely reactive. Patient not endorsing any dysuria, cough, fever, or chills. -Continue treatment -Monitor CBC ENDO #Diabetic ketoacidosis Patient endorses a few days without taking insulin ABG showed pH 7.15, pCO2 17, pO2 123, HCO3 6. Chem panel showed bicarb <10, Na 127, Cl 92, anion gap of 25. BHB >6.4 -Continue insulin drip and DKA protocol -IV fluids at 250 ml/hr -Repletion of potassium as needed -Renal panel q4h #Poorly controlled type 1 diabetes On admission initial glucose 507. A1c 12.3. Patient takes insulin glargine for diabetes at home. Patient received 7.3 U regular in ED and started on insulin drip. -Held home medications -Bedside blood glucose checks q1h -Convert to subQ insulin when gap is closed on 2 consecutive labs -NPO then carb consistent low diet when converted -Consulted tubular stock glass bulb machine former ID #No active problems MSK #No active problems SKIN #No active problems DVT prophylaxis: Lovenox GI prophylaxis: None Diet: NPO [place]: Present Lines: Peripheral IV, Central IV Antibiotics: None CODE STATUS: FULL Reason for ICU care: DKA management Patient plan of care was discussed with the attending lot associate, Dr. Soni. Katerine Rudd, PGY-3 Attending Provider Attestation/Addendum pt seen and examined with resident team, agree with above. in brief this is a 29yo F well known to the service who presents for DKA. she ran out of insulin a few days ago and has not gone to refill her rx. She has been taking methamphetamines and cocaine over the last few days. In the ER she is found to have dry oral mucosa and c/o back pain and general malaise. She was started on DKA protocol with insulin gtt, labs q4hr, IVF. will wait for AG to close x 2 prior to transitioning to subq lantus. Reactive leukocytosis and hypoMg present. She is c/o withdrawal and was started on precedex. she also c/o SI and therefore a sitter was ordered and psych eval once pt more stable. case d/w ER d/w ICU team labs, imaging, records reviewed ~55min required for eval, exam, review, intervention, discussion and formulation of POC for this pt with DKA
[2024-10-03] MEDS: POT CHL ADDITIVE 20 MEQ in RINGERS LACTATED 1000 ML 1,000 ML 250 MEQ IV ×2 (08:27→21:00)
[2024-10-03] MEDS: ENOXAPARIN SOD INJ 40 MG/0.4 ML SYRINGE SC (08:36)
[2024-10-03] MEDS: ACETAMINOPHEN 325 MG TABLET 650 MG PO (08:36)
[2024-10-03] MEDS: DEXTROSE 5%-LACTATED RINGERS 1,000 ML 250 ML IV (09:31)
[2024-10-03 10:43] LABS: Lactate (Lactic Acid) 1.2 mMol/L (0.4-2.0)
[2024-10-03 11:04] LABS: Albumin, Serum 4.5 gm/dL (3.5-5.0); Anion Gap 16 (7-16); BUN/Creatinine Ratio 11 Ratio (12-20); Blood Urea Nitrogen 12 mg/dL (9-23); Calcium 9.0 mg/dL (8.3-10.6); Calcium (Corrected) 9.0 mg/dL (8.5-10.1); Chloride 102 mMol/L (98-107); Creatinine (Component) 1.1 mg/dL (0.6-1.3); Estimated Creatinine Clearance 74.8 mL/min (>60); Glucose 130 mg/dL (74-106); Osmolality,Calculated 268 (275-295); Phosphorous 2.6 mg/dL (2.4-5.1); Potassium 4.0 mMol/L (3.4-5.1); Sodium 133 mMol/L (136-145); eGFR > 60 See Note
[2024-10-03] MEDS: POT CHL ADDITIVE 20 MEQ in DEXTROSE 5%-LACTATED RINGERS 1,000 ML 250 MEQ IV ×2 (11:59→18:59)
[2024-10-03 12:05] LABS: Carbon Dioxide 14.7 mMol/L (20.0-31.0)
[2024-10-03] MEDS: KETOROLAC INJ 30 MG/ML VIAL 15 MG IVP (13:29)
[2024-10-03] MEDS: DEXMEDETOMIDINE 400 MCG IVPB 400 MCG/100 ML BAG IV (14:00)
[2024-10-03 14:52] LABS: Magnesium 0.8 mg/dL (1.6-2.6)
[2024-10-03 15:06] LABS: Albumin, Serum 4.3 gm/dL (3.5-5.0); Anion Gap 20 (7-16); BUN/Creatinine Ratio 9 Ratio (12-20); Blood Urea Nitrogen 10 mg/dL (9-23); Calcium 8.8 mg/dL (8.3-10.6); Calcium (Corrected) 8.8 mg/dL (8.5-10.1); Chloride 102 mMol/L (98-107); Creatinine (Component) 1.1 mg/dL (0.6-1.3); Estimated Creatinine Clearance 74.8 mL/min (>60); Glucose 231 mg/dL (74-106); Osmolality,Calculated 270 (275-295); Phosphorous 2.6 mg/dL (2.4-5.1); Potassium 4.2 mMol/L (3.4-5.1); Sodium 132 mMol/L (136-145); eGFR > 60 See Note
[2024-10-03] MEDS: MAGNESIUM OXIDE 400 MG TABLET 800 MG PO (15:13)
[2024-10-03 15:19] LABS: Carbon Dioxide 10.0 mMol/L (20.0-31.0)
--- NOTE | 2024-10-03 17:15 | PC.SS ---
SS contacted due to patient having disclosed suicidal ideation (SI) to bedside RN and attempting to leave AMA. SS met with patient at bedside. Role and purpose of today?s contact was explained to patient. Patient disclosed she has been homeless for that last 2 weeks. Patient identified her primary medical surrogate decisionmaker as her on/off significant other Jere Abdoul [phone]. Patient disclosed having (SI) daily. She explains she consumes methamphetamine and cocaine to suppress (SI). Patient reports currently experiencing (SI) and wants to ?end it all and go to heaven or hell, whichever.? She denies current plan and method to end life. Patient identified her 10YO daughter as her anchor. Patient stated her daughter lives with patient?s ex-partner (child?s bio-parent). She reports self-harming by hitting herself with a closed fist and cutting with any sharp objects, she can find. Patient disclosed she was diagnosed with Anxiety and Depression. She was prescribed Abilify and Celexa. However, she reports her prescription has not been filled in months. Patient reported concerns with transportation when she is discharged. SS informed patient SS can assist with transportation. SS explained to patient if she decides to leave AMA PPD would be contacted and she would be brought back due to being a safety concern. SS further explained a mental health evaluation would be needed before she can discharge. Patient agreed to remain in her room. SS informed patient a social work associate would be following up with her the following day. FLOR Almeida and SARAN Davis informed. SS encouraged both SARAN Davis and FLOR Almeida to contact PPD if patient leaves AMA. SARAN Davis requested patient be placed on a 5150 Hold. SS explained patient needs to be medically clear before mental health evaluation can be completed. SS consulted with JAKOB Thomas to confirm and it was confirmed patient must be medically clear before being evaluated by CLOTH FINISHING RANGE OPERATOR. SS returned to patient?s room to remind her if she leaves AMA, PPD would return her to [facility] due to her safety. Patient stated she is not connected to a mental health provider. Pharmacy: [facility]. PCP: Jamarcus Valadez. Discharge plan: TBD Next of kin: ASHLI Oquendo Abdoul [phone].
[2024-10-03] MEDS: LIDOCAINE 5% 1 PATCH TOP (17:27)
[2024-10-03 18:54] LABS: Albumin, Serum 4.2 gm/dL (3.5-5.0); Anion Gap 13 (7-16); BUN/Creatinine Ratio 7 Ratio (12-20); Blood Urea Nitrogen 6 mg/dL (9-23); Calcium 9.1 mg/dL (8.3-10.6); Calcium (Corrected) 9.1 mg/dL (8.5-10.1); Carbon Dioxide 15.9 mMol/L (20.0-31.0); Chloride 104 mMol/L (98-107); Creatinine (Component) 0.9 mg/dL (0.6-1.3); Estimated Creatinine Clearance 91.4 mL/min (>60); Glucose 107 mg/dL (74-106); Magnesium 1.8 mg/dL (1.6-2.6); Osmolality,Calculated 263 (275-295); Phosphorous 1.6 mg/dL (2.4-5.1); Potassium 4.1 mMol/L (3.4-5.1); Sodium 133 mMol/L (136-145); eGFR > 60 See Note
[2024-10-03] MEDS: NAPH,KPH MBDB 1 PACKET (1.5 GM) PO ×2 (20:14→23:52)
[2024-10-03] MEDS: POT CHL ADDITIVE 40 MEQ in RINGERS LACTATED 1000 ML 1,000 ML 250 MEQ IV (22:46)
[2024-10-03 23:32] LABS: Albumin, Serum 3.2 gm/dL (3.5-5.0); Anion Gap 13 (7-16); BUN/Creatinine Ratio 6 Ratio (12-20); Blood Urea Nitrogen 6 mg/dL (9-23); Calcium 7.9 mg/dL (8.3-10.6); Calcium (Corrected) 8.5 mg/dL (8.5-10.1); Chloride 106 mMol/L (98-107); Creatinine (Component) 1.0 mg/dL (0.6-1.3); Estimated Creatinine Clearance 82.2 mL/min (>60); Glucose 240 mg/dL (74-106); Osmolality,Calculated 273 (275-295); Phosphorous 2.1 mg/dL (2.4-5.1); Potassium 4.4 mMol/L (3.4-5.1); Sodium 134 mMol/L (136-145); eGFR > 60 See Note
[2024-10-03 23:33] LABS: Carbon Dioxide 14.9 mMol/L (20.0-31.0)
[2024-10-04] VITALS (7 sets, daily range): BP systolic 94–122; BP diastolic 59–76; PULSE 60–65; RESP 16–27; TEMP 36.5–36.6; O2SAT 100; BMI 25.5
[2024-10-04] MEDS: POT CHL ADDITIVE 20 MEQ in DEXTROSE 5%-LACTATED RINGERS 1,000 ML 250 MEQ IV ×2 (01:55→06:45)
--- NOTE | 2024-10-04 03:30 | PC.NURSE ---
Rubber Ball Finisher unable to draw at this time after multiple attempts, charge nurse/MD Robertson aware.
[2024-10-04 06:59] LABS: Basophils # (Auto) 0.0 Thou/mm3 (0.0-0.2); Basophils % (Auto) 0 % (0-2.5); Eosinophils # (Auto) 0.3 Thou/mm3 (0.0-0.5); Eosinophils % (Auto) 3 % (0-10); Hematocrit 33.0 % (36.0-46.0); Hemoglobin 11.5 g/dL (12.0-16.0); Immature Granulocytes Auto 0.05 Thou/mm3 (0.00-0.00); Lymphocytes # (Auto) 2.3 Thou/mm3 (1.0-4.8); Lymphocytes % (Auto) 23 % (10-50); Mean Corpuscular HGB Conc 34.8 g/dl (31.0-37.0); Mean Corpuscular Hemoglobin 28.8 pg (25.0-35.0); Mean Corpuscular Volume 83 fL (80-100); Monocytes # (Auto) 0.8 Thou/mm3 (0.0-0.8); Monocytes % (Auto) 8 % (0-12); Neutrophils # (Auto) 6.5 Thou/mm3 (1.8-7.7); Neutrophils % (Auto) 66 % (37-80); Nucleated Red Blood Cell # 0.00 Thou/mm3 (0.00-0.00); Nucleated Red Blood Cell % 0 /100 WBC (0); Platelet Count 246 Thou/mm3 (140-440); RDW Standard Deviation 43.5 fL (36.4-46.3); Red Blood Count 3.99 Miln/mm3 (4.00-5.20); White Blood Count 9.9 Thou/mm3 (3.6-11.0)
[2024-10-04 07:31] LABS: Albumin, Serum 3.4 gm/dL (3.5-5.0); Anion Gap 12 (7-16); BUN/Creatinine Ratio 8 Ratio (12-20); Blood Urea Nitrogen 6 mg/dL (9-23); Calcium 8.3 mg/dL (8.3-10.6); Calcium (Corrected) 8.8 mg/dL (8.5-10.1); Carbon Dioxide 19.3 mMol/L (20.0-31.0); Chloride 106 mMol/L (98-107); Creatinine (Component) 0.8 mg/dL (0.6-1.3); Estimated Creatinine Clearance 102.8 mL/min (>60); Glucose 151 mg/dL (74-106); Magnesium 1.4 mg/dL (1.6-2.6); Osmolality,Calculated 274 (275-295); Phosphorous 1.9 mg/dL (2.4-5.1); Potassium 3.9 mMol/L (3.4-5.1); Sodium 137 mMol/L (136-145); eGFR > 60 See Note
[2024-10-04] MEDS: Magnesium Sulfate 4 GM Ivpb 4 GM/50 ML BAG IV (07:51)
[2024-10-04] MEDS: INSULIN REG 100 UNITS/100 ML 100 UNIT in PRE-MIXED 1 BAG IV (07:52)
[2024-10-04] MEDS: ENOXAPARIN SOD INJ 40 MG/0.4 ML SYRINGE SC (08:08)
[2024-10-04] MEDS: INSULIN GLARGINE (Lantus) 5 UNIT/0.05 ML (PER 5 UNITS) 20 UNIT SC (08:08)
[2024-10-04 08:53] LABS: Magnesium 1.4 mg/dL (1.6-2.6)
--- NOTE | 2024-10-04 08:56 | EVENTNT_ITS ---
Documentation for date of: 10/04/24 Event Note Event Note: 29-year-old female with significant past medical history of poorly controlled diabetes mellitus type 1, recurrent admissions for DKA and polysubstance abuse presented to the ED on 10/03/2024 with chief complaints of nausea, vomiting and abdominal pain and diagnosed to have diabetic ketoacidosis for which she was admitted to ICU for further management. At the time of admission, vitals are stable except for mild tachycardia with heart rate 100. Labs done at the time of admission are significant for WBC 14.3, bicarb less than 10, sodium 127, chloride 92, anion gap 25, creatinine 1.5, glucose 507, beta hydroxy butyrate 6.4. ABG at the time of admission showed pH 7.15, pCO2 17, bicarb 6. Patient was started on DKA protocol management with IV fluids and insulin drip. Eventually the anion gap closed and the diabetic ketoacidosis resolved. Patient was pending to transition from IV insulin to subcutaneous insulin. But patient endorsed that she is feeling anxious and she does not want to stay in the hospital anymore. Senior resident, Dr. Rudd and myself with the nurses tried to explain the risks and prognosis of leaving AGAINST MEDICAL ADVICE and the possibility of again developing DKA. Also explained to her that we cannot give her medications if she is leaving AGAINST MEDICAL ADVICE. Patient is alert, awake and oriented and is able to take her medical decisions at the point of evaluation. Despite explaining all the risks and prognosis, patient opted to go AGAINST MEDICAL ADVICE. Patient plan of care was discussed with the Editing Intern, Dr. Zachariah Rodriguez, PGY2
--- NOTE | 2024-10-04 10:06 | PC.CC ---
0915-ASW completed an assessment with the pt at bedside, as pt is wanting to leave AMA and had previously made statements that she wanted to . Pt made it very clear that she does not want to end her life. Pt reported, I just want to go home and smoke my weed. Being here is causes me more anxiety then I already have and I just want to go home. Pt reported, I have a lot to live for. I just don't want to be here any more and I want to leave. ASW explained to the pt that she has ever right to leave the hospital and refuse treatment, but before she leaves, ASW will need to make sure she is not wanting to hurt herself or others. Again, pt denies SI/HI and denies self harm. ASW asked pt to allow the RN to do her job and make sure she is safe to go home and will have her sign the AMA form. Pt agreed to allow the RN to disconnect the IV and complete whatever else needs to be done before pt leaves AMA. Pt agreed and was cooperative. ASW informed automotive collision estimator as well as METAL TECHNICIAN, Director Cecilio Andrew.
--- NOTE | 2024-10-04 10:44 | PC.SS ---
GAS COLLECTION SYSTEM OPERATOR informed by ICU bedside nurse that patient has departed AMA.
--- NOTE | 2024-10-04 11:06 | PC.NURSE ---
at 0835, pt expressing desire to leave AMA, education provided on DKA protocol, pt currently on insulin gtt, MD Rudd at bedside, pt continuing to want to leave AMA, pt AOX4, no SI at this time on assessment, all IVs and johnston catheter removed
--- NOTE | 2024-10-04 11:09 | PC.NURSE ---
pt cleared per account services analyst, not on hold
== END 2024-10-04 09:10 | disposition left against medical advice (07) | DRG 420 ==
LOC: SERX 06:46 → SERHOLD 07:27 → S2SX 10-04 07:12
PROVIDERS: Student in an Organized Health Care Education/Training Program; Admitting Provider Internal Medicine; Emergency Provider Emergency Medicine; Visit Provider Internal Medicine
DX: E10.10 Type 1 diabetes mellitus with ketoacidosis without coma (principal); E83.42 Hypomagnesemia; D72.829 Elevated white blood cell count, unspecified; F17.290 Nicotine dependence, other tobacco product, uncomplicated; N17.9 Acute kidney failure, unspecified; R45.851 Suicidal ideations; Z59.00 Homelessness unspecified; Z79.4 Long term (current) use of insulin; T38.3X6A Underdosing of insulin and oral hypoglycemic [antidiabetic] drugs, initial encounter; Z91.148 Patient's other noncompliance with medication regimen for other reason; F19.10 Other psychoactive substance abuse, uncomplicated; Z53.29 Procedure and treatment not carried out because of patient's decision for other reasons
CPT/HCPCS: 36415; 36600; 80048; 80053; 80069; 80307; 81001; 81025; 82010; 82803; 83036; 83605; 83735; 84100; 85025; 87040; 87081; 96360; 96361; 96365; 96366; 96375; 99284; A4314; J1650; J1815; J1885; J2270; J2405; J3475; J3480; J3490; J7030; J7120; J7121; A9270

== ENCOUNTER 2024-11-09 11:13 | Emergency (ER) | payer MEDICAID, SELFPAY ==
[2024-11-09 11:26] VITALS: BP 109/80; PULSE 80; RESP 18; TEMP 37.2; O2SAT 97
--- NOTE | 2024-11-09 11:35 | PD.EDRME ---
Rapid Medical Screening Exam RME Arrival date/time: 11/09/24 11:13 29-year-old female with a history of type 1 diabetes presents to the emergency room with a chief complaint of nausea, fatigue, weakness. Patient states she has been without her insulin for the last 2 days and due to insurance issues she cannot afford a new vial. I have greeted and performed a focused initial assessment of this patient. A comprehensive ED assessment and evaluation of the patient, analysis of all test results, and completion of the medical decision making process will be conducted by additional ED providers. Chief Complaint: Recheck/Abnormal Lab/Rx Vital signs: Vital Signs Temperature 99.0 F 11/09/24 11:26 Pulse Rate 80 11/09/24 11:26 Respiratory Rate 18 11/09/24 11:26 Blood Pressure 109/80 11/09/24 11:26 Pulse Oximetry (%) 97 11/09/24 11:26 Oxygen Delivery Method Room Air 11/09/24 11:26 Vital signs reviewed by provider: Yes
[2024-11-09 11:57] LABS: Base Excess, Venous 1 (-3-3); O2 Saturation, Venous 68 % (96-97); PCO2, Venous 44 mmHg (36-56); PO2, Venous 37 mmHg (15-58); pH, Venous 7.39 (7.33-7.66)
[2024-11-09 12:01] LABS: Basophils # (Auto) 0.1 Thou/mm3 (0.0-0.2); Basophils % (Auto) 1 % (0-2.5); Eosinophils # (Auto) 0.1 Thou/mm3 (0.0-0.5); Eosinophils % (Auto) 1 % (0-10); Hematocrit 39.1 % (36.0-46.0); Hemoglobin 13.7 g/dL (12.0-16.0); Immature Granulocytes Auto 0.02 Thou/mm3 (0.00-0.00); Lymphocytes # (Auto) 2.8 Thou/mm3 (1.0-4.8); Lymphocytes % (Auto) 29 % (10-50); Mean Corpuscular HGB Conc 35.0 g/dl (31.0-37.0); Mean Corpuscular Hemoglobin 29.3 pg (25.0-35.0); Mean Corpuscular Volume 84 fL (80-100); Monocytes # (Auto) 0.6 Thou/mm3 (0.0-0.8); Monocytes % (Auto) 6 % (0-12); Neutrophils # (Auto) 6.0 Thou/mm3 (1.8-7.7); Neutrophils % (Auto) 63 % (37-80); Nucleated Red Blood Cell # 0.00 Thou/mm3 (0.00-0.00); Nucleated Red Blood Cell % 0 /100 WBC (0); Platelet Count 280 Thou/mm3 (140-440); RDW Standard Deviation 40.6 fL (36.4-46.3); Red Blood Count 4.67 Miln/mm3 (4.00-5.20); White Blood Count 9.5 Thou/mm3 (3.6-11.0)
[2024-11-09 12:27] LABS: Alanine Aminotransferase 19 U/L (10-49); Albumin, Serum 4.6 gm/dL (3.5-5.0); Albumin/Globulin Ratio 1.6 (1.2-2.2); Alkaline Phosphatase 101 U/L (46-116); Anion Gap 13 (7-16); Aspartate Amino Transferase 28 U/L (0-34); BUN/Creatinine Ratio 10 Ratio (12-20); Bilirubin,Total 0.5 mg/dL (0.3-1.2); Blood Urea Nitrogen 11 mg/dL (9-23); Calcium 9.5 mg/dL (8.3-10.6); Calcium (Corrected) 9.5 mg/dL (8.5-10.1); Carbon Dioxide 22.5 mMol/L (20.0-31.0); Chloride 96 mMol/L (98-107); Creatinine (Component) 1.1 mg/dL (0.6-1.3); Globulin 2.9 gm/dL (2.3-3.5); Glucose 319 mg/dL (74-106); Osmolality,Calculated 274 (275-295); Potassium 4.6 mMol/L (3.4-5.1); Sodium 131 mMol/L (136-145); Total Protein 7.5 gm/dL (5.7-8.2); eGFR > 60 See Note
[2024-11-09 12:35] LABS: INR 1.0 (0.9-1.3); Partial Thromboplastin Time 23.9 Seconds (22.0-36.0); Prothrombin Time 10.9 Seconds (9.0-12.2)
[2024-11-09 12:37] LABS: Beta Hydroxybutyrate 1.1 mmol/L (<0.6)
[2024-11-09 13:32] VITALS: BP 123/83; PULSE 65; TEMP 36.7
--- NOTE | 2024-11-09 13:46 | PD.EDADULT ---
ED General RME/HPI General Chief complaint: Recheck/Abnormal Lab/Rx Stated complaint: ran out of Insulin 2 days ago Time Seen by Provider: 11/09/24 12:24 Arrival date/time: 11/09/24 11:13 RME / HPI RME / HPI narrative: 11/09/24 11:13 29-year-old female with a history of type 1 diabetes presents to the emergency room with a chief complaint of nausea, fatigue, weakness. Patient states she has been without her insulin for the last 2 days and due to insurance issues she cannot afford a new vial. I have greeted and performed a focused initial assessment of this patient. A comprehensive ED assessment and evaluation of the patient, analysis of all test results, and completion of the medical decision making process will be conducted by additional ED providers. DR. SYLVESTER MAIN ED EVALUATION 29 year old female with history of type 1 diabetes presents to the ED for evaluation of global weakness, fatigue, and nausea today. Reports she had recently ran out of her insulin and felt she was going into DKA. Reportedly consulted with her PCP at [facility] to get a refill. However, was told she does not have a refill scheduled until the end of November. Patient states she is on Admelog (1 unit per every 8g of carbs) and Lantus (22 units AM and PM). No other associated symptoms reported. Denies fevers, chills, chest pain, cough, shortness of breath, diarrhea, constipation, or urinary symptoms. Related Data Home Medications ?Medication ?Instructions ?Recorded ?Confirmed buprenorphine 12 mg-naloxone 3 mg buccal 05/11/24 sublingual film Previous Rx's ?Medication ?Instructions ?Recorded aripiprazole 10 mg tablet 10 mg PO QDAY 9 days #9 tabs 12/08/23 blood sugar diagnostic (Accu-Chek #100 ea 12/08/23 SmartView Test Strips) blood-glucose meter (FreeStyle #1 ea 12/08/23 [place] Lite kit) lancets 28 gauge (FreeStyle #100 ea 12/08/23 Lancets) lancets-blood glucose test #1 ea 12/08/23 strips-pen needles with gauze kit levothyroxine 88 mcg tablet 88 mcg PO QDAY 30 days #30 tabs 12/08/23 (Synthroid) pen needle, diabetic 29 gauge x #100 ea 12/08/23 1/2 (Comfort EZ Pen [place]) pen needle, diabetic 32 gauge x #100 ea 12/08/23 1/4 acetaminophen 325 mg tablet 650 mg (2 x 325 mg) PO Q6H PRN 05/14/24 (Tylenol) fever or pain #30 tabs blood-glucose sensor (FreeStyle #1 ea 07/13/24 Sofy 3 Plus Sensor device) blood-glucose,sales team leader,cont #1 ea 07/13/24 (FreeStyle Sofy 3 [place]) insulin glargine 100 unit/mL (3 20 unit (0.2 mL) subcut HS #15 mL 07/13/24 mL) subcutaneous pen insulin lispro 100 unit/mL 1 sliding scale dose subcut 07/13/24 subcutaneous pen (Admelog SoloStar USEASDIRECTD #15 mL U-100 Insulin lispro) sodium di- and 1 tab PO BID #4 tabs 07/13/24 monophosphate-potassium phos monobasic 250 mg tablet (X-Bkfq-Xbdouqo) ferrous sulfate 325 mg (65 mg 325 mg PO QDAY #30 tabs 08/18/24 iron) tablet insulin aspart U-100 100 unit/mL 1 sliding scale dose subcut 11/09/24 subcutaneous solution (Novolog USEASDIRECTD #10 mL U-100 Insulin aspart) insulin glargine 100 unit/mL (3 20 unit (0.2 mL) subcut BID #15 mL 11/09/24 mL) subcutaneous pen (Lantus Solostar U-100 Insulin) Allergies Allergy/AdvReac Type Severity Reaction Status Date / Time codeine Allergy Intermediate Abdominal Verified 11/09/24 11:17 Pain Review of Systems Review of Systems Systems Reviewed: All systems reviewed, normal except as documented Past Medical History Past Medical History GASTROINTESTINAL: Positive Pancreatitis REPRODUCTIVE: Positive Previous Pregnancies MUSCULOSKELETAL: Positive Musculoskeletal Disorders ENDOCRINE: Positive Diabetes Mellitus Type 1 and Hypoglycemia PSYCHO/SOCIAL: Positive Psychiatric Problems, Recreational Drug Use, Depression, Anxiety and Depression OTHER HISTORY: Positive Hospitalization and Falls Family History FAMILY HISTORY: Positive Family Psychiatric Problems and Family Cancer Surgical History SURGICAL: Positive Section Social History SMOKING STATUS: Former smoker SECOND HAND EXPOSURE: No ED Exam Narrative Physical exam: GENERAL APPEARANCE:? alert and oriented x 4, well-developed, well-nourished, no acute distress HEENT: normocephalic, atraumatic NECK: supple LUNGS: no respiratory distress, normal effort HEART: good peripheral perfusion ABDOMEN: non distended EXTREMITIES:? atraumatic NEUROLOGIC: awake; alert and oriented x4; cranial nerves II-XII grossly intact PSYCHIATRIC:? appropriate mood and affect SKIN: warm, dry, normal color; no rashes Course Quality Measures none Orders Category Date Time Status Beta Hydroxybutyrate Stat Lab 11/09/24 11:49 Completed CBC Stat Lab 11/09/24 11:49 Completed CMP [Comprehensive Metabolic Panel] Stat Lab 11/09/24 11:49 Completed PT [Prothrombin Time with INR] Stat Lab 11/09/24 12:08 Completed PTT [Partial Thromboplastin Time] Stat Lab 11/09/24 12:08 Completed VBG [Venous Blood Gas] Stat Lab 11/09/24 11:49 Completed Vital Signs Vital signs: Vital Signs Temperature 99.0 F 11/09/24 11:26 Pulse Rate 80 11/09/24 11:26 Respiratory Rate 18 11/09/24 11:26 Blood Pressure 109/80 11/09/24 11:26 Pulse Oximetry (%) 97 11/09/24 11:26 Oxygen Delivery Method Room Air 11/09/24 11:26 Pulse ox is 97% on room air which is adequate. Discharge Plan Plan Patient Disposition: HOME (Self Care) Prescriptions/Referrals Prescriptions/Med Rec: New insulin glargine [Lantus Solostar U-100 Insulin] 100 unit/mL (3 mL) insulin pen 20 unit subcut BID Qty: 15 0RF insulin aspart U-100 [Novolog U-100 Insulin aspart] 100 unit/mL solution 1 sliding scale dose subcut USEASDIRECTD Qty: 10 0RF No Action (DME) Accu-Chek SmartView Test Strip Strip See Rx Instructions .Route Qty: 100 5RF Rx Instructions: As directed levothyroxine [Synthroid] 88 MCG tablet 88 mcg PO QDAY 30 Days Qty: 30 3RF (DME) blood-glucose meter [FreeStyle [place] Lite] Kit See Rx Instructions .Route Qty: 1 0RF Rx Instructions: As directed (DME) pen needle, diabetic [Comfort EZ Pen [place]] 29 gauge x 1/2 needle See Rx Instructions .Route Qty: 100 0RF Rx Instructions: As directed aripiprazole 10 mg tablet 10 mg PO QDAY 9 Days Qty: 9 0RF (DME) pen needle, diabetic 32 gauge x 1/4 needle See Rx Instructions .Route Qty: 100 0RF Rx Instructions: As directed (DME) lancets [FreeStyle Lancets] 28 gauge Misc Qty: 100 0RF Rx Instructions: Test BID (DME) lancet-gluc pifbo-fvpyyu-vqamc Kit See Rx Instructions .Route Qty: 1 5RF Rx Instructions: As directed acetaminophen [Tylenol] 325 mg tablet 650 mg PO Q6H PRN (Reason: fever or pain) Qty: 30 0RF buprenorphine-naloxone 12-3 mg film BUCCAL Patient Comments: dissolve 1 FILM under the tongue once daily insulin glargine 100 unit/mL (3 mL) insulin pen 20 unit subcut HS Qty: 15 0RF insulin lispro [Admelog SoloStar U-100 Insulin] 100 unit/mL insulin pen 1 sliding scale dose subcut USEASDIRECTD Qty: 15 0RF (DME) FreeStyle Sofy 3 Plus Sensor Device See Rx Instructions .Route Qty: 1 0RF Rx Instructions: As directed (DME) FreeStyle Sofy 3 [place] [facility] See Rx Instructions .Route Qty: 1 0RF Rx Instructions: As directed S-Vwze-Yyqndjs 250 mg tablet 1 tab PO BID Qty: 4 0RF ferrous sulfate 325 mg (65 mg iron) tablet 325 mg PO QDAY Qty: 30 0RF Referrals: Jamarcus Martínez PA-C [Primary Care Provider] - In 1 week Problem List Clinical Impression: Encounter for medication refill, Diabetes Patient/Caregiver Discharge Instructions Education Materials: Types of Insulin Print Language: Khmer Stand Alone Forms: Kourtney Award Info., Patient Portal Info Letter MDM Narrative [facility] hospital course: Trixie Meza am scribing for and in the presence of Dr. Sylvester. Clinical Information Provided by patient Medical Records Reviewed [facility] Meds/Rx Considered, not Ordered None Labs/Rad/Tests considered, not Ordered None Chronic Illness/Social Conditions which may negatively complicate care or outcome(s)-explain: ETOH/drugs/substance abuse EKG EKG not done Lab Interpretation Labs: interpreted by mo Lab(s) interpretation(s): CBC within normal limits VBG within normal lmits Glucose 319 Beta hydroxybutyrate 1.1 Imaging Imaging interpretation: none Medication Administration(s) none Diagnosis Most likely dx, and/or detailed dx discussion: Encounter for medication refill Diabetes Dispositon Disposition: Discharge Home
== END 2024-11-09 14:12 | disposition home or self-care (01) ==
PROVIDERS: Nurse Practitioner Family; Emergency Provider Emergency Medicine; PCP Physician Assistant
DX: Z76.0 Encounter for issue of repeat prescription (principal); E10.9 Type 1 diabetes mellitus without complications; Z79.4 Long term (current) use of insulin
CPT/HCPCS: 36415; 80053; 82010; 82803; 85025; 85610; 85730; 99283

== ENCOUNTER 2024-11-27 15:29 | Emergency (ER) | payer MEDICAID, SELFPAY ==
[2024-11-27 15:30] VITALS: BMI 26.4
[2024-11-27 16:33] VITALS: BP 120/82; PULSE 100; RESP 24; TEMP 36.5; O2SAT 99
[2024-11-27] MEDS: ONDANSETRON ODT 4 MG TABRAP PO (16:44)
--- NOTE | 2024-11-27 16:45 | PD.EDRME ---
Rapid Medical Screening Exam RME Arrival date/time: 11/27/24 15:29 This is a 29-year-old female that comes into the emergency room with complaints of abdominal pain, nausea, vomiting, diarrhea. Patient admits to using cocaine. Patient states that she ran out of her Lantus and has only been taking her NovoLog. Patient states she has had DKA several times and has been hospitalized for this problem. I have greeted and performed a focused initial assessment of this patient. Initial appropriate labs ordered at this time. A comprehensive ED assessment and evaluation of the patient and analysis of all test and completion of medical decision making process will be conducted by additional ED provider. Chief Complaint: General Adult/Misc Complain Time Seen by Provider: 11/27/24 15:34 Vital signs: Vital Signs Temperature 97.7 F 11/27/24 16:33 Pulse Rate 100 11/27/24 16:33 Respiratory Rate 24 H 11/27/24 16:33 Blood Pressure 120/82 11/27/24 16:33 Pulse Oximetry (%) 99 11/27/24 16:33 Oxygen Delivery Method Room Air 11/27/24 16:33
[2024-11-27 17:06] LABS: Collection Type, Urine Voided
[2024-11-27 17:19] LABS: Bacteria,Urine Rare; Bilirubin,Urine Negative (Negative); Blood,Urine Negative (Negative); Clarity,Urine Clear (Clear/Hazy); Color,Urine Colorless (Lt Yel-Yel); Culture Indicated,Urine Not Indicated; Glucose, Urine 4+ (Negative); Ketones,Urine 3+ (Negative); Leukocyte Esterase,Urine Negative (Negative); Nitrite,Urine Negative (Negative); PH,Urine 5.5 (5.0-7.0); Protein,Urine Negative (Neg - Trace); RBC,Urine 2 /hpf (0-3); Specific Gravity,Urine 1.026 (1.001-1.035); Squamous Epithelial Cell,Urine 4 /hpf (0-5); Urobilinogen,Urine Negative mg/dL (0.0-1.0); WBC,Urine 4 /hpf (0-5)
--- NOTE | 2024-11-27 17:22 | PC.NURSE ---
Addendum entered by Elijah Sanches RN 11/27/24 17:48: @ 1748 - PT CALLED FROM ED LOBBY & ED ENTRANCE FOR LAST CALL; NO ANSWER AT THIS TIME. PT ELOPED. Addendum entered by Elijah Sanches RN 11/27/24 17:36: @ 1736 - PT CALLED FROM ED LOBBY & ED ENTRANCE AGAIN; NO ANSWER AT THIS TIME. Original Note: @ 1722 - PT CALLED FROM ED LOBBY & ED ENTRANCE; NO ANSWER AT THIS TIME.
[2024-11-27 17:30] LABS: Amphetamine/Methamp Scrn,U Positive (Negative); Barbiturate Screen,Urine Negative (Negative); Benzodiazepines Screen,Urine Negative (Negative); Benzoylecgonine Screen, Ur Positive (Negative); Fentanyl Screen,Urine Negative (Negative); Opiate Screen,Urine Negative (Negative); THC Screen,Urine Negative (Negative)
== END 2024-11-27 17:49 | disposition left against medical advice (07) ==
PROVIDERS: Emergency Provider Nurse Practitioner Family
DX: R11.2 Nausea with vomiting, unspecified (principal); R19.7 Diarrhea, unspecified
CPT/HCPCS: 80053; 80307; 81001; 83690; 85025; 99283; Q0162

== ENCOUNTER 2024-11-28 14:55 | Inpatient (IN) | payer MEDICAID, SELFPAY ==
[2024-11-28] VITALS (44 sets, daily range): BP systolic 46–122; BP diastolic 35–82; PULSE 0–173; RESP 9–36; TEMP 37.7; O2SAT 93–100; BMI 28.1; BMI 29.9
--- NOTE | 2024-11-28 14:57 | PD.EDRECHK ---
ED Recheck Abnl Lab Rx-RME/HPI General Chief Complaint: Weakness Stated Complaint: BLOOD SUGAR Time Seen by Provider: 11/28/24 14:58 Arrival date/time: 11/28/24 14:55 Limitations: altered mental status RME / HPI RME / HPI narrative: DR. MAY MAIN ED EVALUATION: 29-year-old female with a known history of type 1 diabetes mellitus presenting to the Emergency Department via EMS with complaints of feeling she is in DKA . She reports not taking insulin for the past 3 days. Her blood glucose read high on home monitor today. She denies chest pain, cough, or vomiting. Patient has a history of type 1 diabetes. Also endorsed using a rock of some substance earlier today. Related Data Home Medications ?Medication ?Instructions ?Recorded ?Confirmed buprenorphine 12 mg-naloxone 3 mg buccal 05/11/24 sublingual film Previous Rx's ?Medication ?Instructions ?Recorded aripiprazole 10 mg tablet 10 mg PO QDAY 9 days #9 tabs 12/08/23 blood sugar diagnostic (Accu-Chek #100 ea 12/08/23 SmartView Test Strips) blood-glucose meter (FreeStyle #1 ea 12/08/23 [place] Lite kit) lancets 28 gauge (FreeStyle #100 ea 12/08/23 Lancets) lancets-blood glucose test #1 ea 12/08/23 strips-pen needles with gauze kit levothyroxine 88 mcg tablet 88 mcg PO QDAY 30 days #30 tabs 12/08/23 (Synthroid) pen needle, diabetic 29 gauge x #100 ea 12/08/23 1/2 (Comfort EZ Pen [place]) pen needle, diabetic 32 gauge x #100 ea 12/08/23 1/4 acetaminophen 325 mg tablet 650 mg (2 x 325 mg) PO Q6H PRN 05/14/24 (Tylenol) fever or pain #30 tabs blood-glucose sensor (FreeStyle #1 ea 07/13/24 Sofy 3 Plus Sensor device) blood-glucose,color receiver,cont #1 ea 07/13/24 (FreeStyle Sofy 3 [place]) insulin glargine 100 unit/mL (3 20 unit (0.2 mL) subcut HS #15 mL 07/13/24 mL) subcutaneous pen insulin lispro 100 unit/mL 1 sliding scale dose subcut 07/13/24 subcutaneous pen (Admelog SoloStar USEASDIRECTD #15 mL U-100 Insulin lispro) sodium di- and 1 tab PO BID #4 tabs 07/13/24 monophosphate-potassium phos monobasic 250 mg tablet (R-Ahkh-Dtxuwel) ferrous sulfate 325 mg (65 mg 325 mg PO QDAY #30 tabs 08/18/24 iron) tablet insulin aspart U-100 100 unit/mL 15 unit (0.15 mL) subcut TID #15 mL 11/09/24 (3 mL) subcutaneous pen (Novolog FlexPen U-100 Insulin aspart) insulin glargine 100 unit/mL (3 20 unit (0.2 mL) subcut BID #15 mL 11/09/24 mL) subcutaneous pen (Lantus Solostar U-100 Insulin) Allergies Allergy/AdvReac Type Severity Reaction Status Date / Time codeine Allergy Intermediate Abdominal Verified 11/27/24 15:32 Pain Review of Systems Review of Systems Systems Reviewed: All systems reviewed, normal except as documented Past Medical History Past Medical History GASTROINTESTINAL: Positive Pancreatitis REPRODUCTIVE: Positive Previous Pregnancies MUSCULOSKELETAL: Positive Musculoskeletal Disorders ENDOCRINE: Positive Diabetes Mellitus Type 1, Hypoglycemia and Hypothyroidism PSYCHO/SOCIAL: Positive Psychiatric Problems, Recreational Drug Use, Depression, Anxiety and Depression OTHER HISTORY: Positive Hospitalization and Falls Family History FAMILY HISTORY: Positive Family Psychiatric Problems and Family Cancer Surgical History SURGICAL: Positive Section Social History SMOKING STATUS: Current every day smoker SECOND HAND EXPOSURE: No ED Exam General Limitations: Present altered mental status General appearance: Present other (Appears confused and is only oriented to herself and the situation. Fruity breath.) Head Head exam: Present atraumatic, normocephalic and normal inspection Eye Eye exam: Present normal appearance, PERRL and EOMI ENT ENT exam: Present normal exam, normal oropharynx and mucous membranes dry Neck Neck exam: Present normal inspection, full ROM and trachea midline Chest Chest inspection: Present normal inspection and symmetric chest wall rise Respiratory Respiratory exam: Present other (Tachypneic); Absent respiratory distress or wheezes Cardiovascular Cardiovascular exam: Present normal rhythm, tachycardia and normal heart sounds Abdominal Exam Abdominal exam: Present soft; Absent distention, tenderness, guarding or rebound Extremities Exam Extremities exam: Present normal inspection and full ROM Back Exam Back exam: Present normal inspection and full ROM Neurological Exam Neurological exam: Present other (Appears confused and is only oriented to herself and the situation.) Skin Skin exam: Present warm, dry, intact and normal color Course Quality Measures none Orders Category Date Time Status Beta Hydroxybutyrate Stat Lab 11/28/24 14:58 Ordered CBC Stat Lab 11/28/24 16:01 Completed CMP [Comprehensive Metabolic Panel] Stat Lab 11/28/24 14:58 Ordered HCG,Qualitative Serum Routine Lab 11/28/24 17:42 Completed Lipase Stat Lab 11/28/24 14:58 Ordered PT [Prothrombin Time with INR] Stat Lab 11/28/24 14:58 Ordered Path Review Blood Smear Stat Lab 11/28/24 16:01 Completed UA, C/S IF [Urinalysis, C/S if Indicated] Stat Lab 11/28/24 14:59 Ordered VBG [Venous Blood Gas] Stat Lab 11/28/24 14:58 Ordered Ringers Lactated 1000 ml [Lactated Ringers] 1,000 ml Med 11/28/24 14:58 Discontinued IV 999 mls/hr Ringers Lactated 1000 ml [Lactated Ringers] 1,000 ml Med 11/28/24 14:58 Discontinued IV 999 mls/hr Ringers Lactated 1000 ml [Lactated Ringers] 1,000 ml Med 11/28/24 14:59 Discontinued IV 999 mls/hr Vital Signs Vital signs: Vital Signs Temperature 100 F 11/28/24 14:56 Pulse Rate 128 H 11/28/24 14:56 Respiratory Rate 24 H 11/28/24 14:56 Blood Pressure 110/82 11/28/24 14:56 Pulse Oximetry (%) 98 11/28/24 14:56 Oxygen Delivery Method Room Air 11/28/24 14:56 Recheck / Abnormal Lab / Rx MDM Narrative MDM Narrative:: Patient is a 29-year-old female with medical history notable for type 1 diabetes is in the emergency department with concerns for feeling generally unwell. Vital signs and exam as above. Concern for DKA, metabolic disturbance, dehydration among others. Ordered labs and EKG. Patient also appears confused may be related to her DKA however ordered CT scan 3 L of fluid ordered for patient. We immediately placed patient in resuscitation room, obtained IV access, fluids were flowing. Went to reevaluate patient, patient pulled out her IV access. Patient will need a central line emergent consent. Patient persistently tachycardic, worsening, given concern for patient's history of severe DKA ordered an amp of sodium bicarbonate. Patient signed out to oncoming team. Suellen Meza am scribing for and in the presence of Dr. May. Patient data External records reviewed:: [facility] previous records Clinical information provided by:: patient Social determinants that could affect healthcare access:: none Patient has the following chronic illnesses:: type 1 diabetes mellitus How is presenting disease/condition affected by chronic disease/condition?: exacerbated by Evaluation data The following diagnostics were reviewed and interpreted by me:: lab results Lab and/or radiology exams considered but not ordered:: none Interpretation Summary: See MDM narrative above. Medications / Prescriptions Medications or Prescriptions considered but not ordered:: none Medication administrations:: Medication Administration History Discontinued Medications Lactated Ringer's (Lactated Ringers) 1,000 mls @ 999 mls/hr IV .Q1H1M ONE Stop: 11/28/24 15:58 Last Admin: 11/28/24 16:49 Dose: 999 mls/hr Documented By: BY Lactated Ringer's (Lactated Ringers) 1,000 mls @ 999 mls/hr IV .Q1H1M ONE Stop: 11/28/24 15:58 Last Admin: 11/28/24 16:51 Dose: 999 mls/hr Documented By: BY Lactated Ringer's (Lactated Ringers) 1,000 mls @ 999 mls/hr IV .Q1H1M ONE Stop: 11/28/24 15:59 Last Admin: 11/28/24 16:51 Dose: 999 mls/hr Documented By: BY see above Consultations Consultation(s) initiated? (list below): No Diagnosis Recheck Differential Diagnosis: other (Diabetic ketoacidosis, hyperosmolar hyperglycemic state, and metabolic encephalopathy secondary to severe hyperglycemia.) Most likely diagnosis given after review of the tests above:: No official diagnoses at this time, still pending diagnostic tests. Patient signout to the warehouse shift supervisor provider. Admission Indicated Admission indicated?: not indicated Explain why admission is indicated or not indicated:: No final disposition plan at this time, still pending diagnostic tests. Patient signout to the warehouse shift supervisor provider. Admission Request Was there a request for admission?: No Disposition Plan Disposition Plan: other (specify) (Patient signout to the warehouse shift supervisor provider.) Discharge Plan Prescriptions/Referrals Prescriptions/Med Rec: No Action (DME) Accu-Chek SmartView Test Strip Strip See Rx Instructions .Route Qty: 100 5RF Rx Instructions: As directed levothyroxine [Synthroid] 88 MCG tablet 88 mcg PO QDAY 30 Days Qty: 30 3RF (DME) blood-glucose meter [FreeStyle [place] Lite] Kit See Rx Instructions .Route Qty: 1 0RF Rx Instructions: As directed (DME) pen needle, diabetic [Comfort EZ Pen [place]] 29 gauge x 1/2 needle See Rx Instructions .Route Qty: 100 0RF Rx Instructions: As directed aripiprazole 10 mg tablet 10 mg PO QDAY 9 Days Qty: 9 0RF (DME) pen needle, diabetic 32 gauge x 1/4 needle See Rx Instructions .Route Qty: 100 0RF Rx Instructions: As directed (DME) lancets [FreeStyle Lancets] 28 gauge Misc Qty: 100 0RF Rx Instructions: Test BID (DME) lancet-gluc yejus-oykucx-peymq Kit See Rx Instructions .Route Qty: 1 5RF Rx Instructions: As directed acetaminophen [Tylenol] 325 mg tablet 650 mg PO Q6H PRN (Reason: fever or pain) Qty: 30 0RF insulin glargine [Lantus Solostar U-100 Insulin] 100 unit/mL (3 mL) insulin pen 20 unit subcut BID Qty: 15 0RF insulin aspart U-100 [Novolog FlexPen U-100 Insulin] 100 unit/mL (3 mL) insulin pen 15 unit subcut TID Qty: 15 0RF buprenorphine-naloxone 12-3 mg film BUCCAL Patient Comments: dissolve 1 FILM under the tongue once daily insulin glargine 100 unit/mL (3 mL) insulin pen 20 unit subcut HS Qty: 15 0RF insulin lispro [Admelog SoloStar U-100 Insulin] 100 unit/mL insulin pen 1 sliding scale dose subcut USEASDIRECTD Qty: 15 0RF (DME) FreeStyle Sofy 3 Plus Sensor Device See Rx Instructions .Route Qty: 1 0RF Rx Instructions: As directed (DME) FreeStyle Sofy 3 [place] Misc See Rx Instructions .Route Qty: 1 0RF Rx Instructions: As directed Q-Yntj-Ifquahe 250 mg tablet 1 tab PO BID Qty: 4 0RF ferrous sulfate 325 mg (65 mg iron) tablet 325 mg PO QDAY Qty: 30 0RF Referrals: No Primary/Family,Physician [Primary Care Provider] - In 1 week Problem List Clinical Impression: Acute dehydration Patient/Caregiver Discharge Instructions Print Language: Greek
[2024-11-28] MEDS: RINGERS LACTATED 1000 ML 1,000 ML 999 ML IV ×3 (16:49→16:51)
[2024-11-28 17:00] LABS: Basophils # (Auto) 0.2 Thou/mm3 (0.0-0.2); Basophils % (Auto) 1 % (0-2.5); Eosinophils # (Auto) 0.0 Thou/mm3 (0.0-0.5); Eosinophils % (Auto) 0 % (0-10); Hematocrit 44.1 % (36.0-46.0); Hemoglobin 13.3 g/dL (12.0-16.0); Immature Granulocytes Auto 1.11 Thou/mm3 (0.00-0.00); Lymphocytes # (Auto) 2.3 Thou/mm3 (1.0-4.8); Lymphocytes % (Auto) 6 % (10-50); Mean Corpuscular HGB Conc 30.2 g/dl (31.0-37.0); Mean Corpuscular Hemoglobin 29.0 pg (25.0-35.0); Mean Corpuscular Volume 96 fL (80-100); Monocytes # (Auto) 3.0 Thou/mm3 (0.0-0.8); Monocytes % (Auto) 8 % (0-12); Neutrophils # (Auto) 30.1 Thou/mm3 (1.8-7.7); Neutrophils % (Auto) 82 % (37-80); Nucleated Red Blood Cell # 0.00 Thou/mm3 (0.00-0.00); Nucleated Red Blood Cell % 0 /100 WBC (0); Platelet Count 336 Thou/mm3 (140-440); RDW Standard Deviation 50.2 fL (36.4-46.3); Red Blood Count 4.58 Miln/mm3 (4.00-5.20)
[2024-11-28 17:14] LABS: White Blood Count 36.8 Thou/mm3 (3.6-11.0)
[2024-11-28 17:16] LABS: Path Review Blood Smear Sent to Pathologist
[2024-11-28 18:01] LABS: HCG,Qualitative Serum Negative
--- NOTE | 2024-11-28 18:01 | PD.EDADDENDU ---
Emergency Room Addendum <Danica Flannery - Last Filed: 11/28/24 20:06> Addendum Narrative: I took over the care from Dr. May at 6 PM on 11/28/2024, see notes for complete H&P and ED course. I reviewed all diagnostic test results. At this point, diagnoses include: DKA CODE blue called overhead at 1906. ACLS protocol was followed including chest compressions, epinephrine, and sodium bicarbonate. 20 units of insulin and 1L LR also given. ROSC was obtained at 1920. Treatment here included: Levophed drip Epinephrine drip Insulin drip I discussed the case with our ICU service. About the presentation and exam and diagnostics and treatments here. And need of further care in the hospital. Will accept the patient. PROCEDURES: Intubation Time out performed: No (performed emergently) sedative: Etomidate Mg Given: 20 paralytic: Succinylcholine Mg Given: 100 Laryngoscope: [place] Assist Device Used: Bougie ET Tube Size: 7.5 ET Tube Uncuffed: No Tube Secured Depth (cm): 22 Tube Secured Location: teeth Tube Placement Confirmation: visualized tube passing through cords, equal breath sounds bilaterally, no breath sounds over epigastrium and confirmation by capnometry Patient Tolerated Procedure: well and no complications Clint Curiel MD <Clint Curiel MD - Last Filed: 11/28/24 21:52> Addendum Narrative: I took over the care from Dr. May at 6 PM on 11/28/2024, see notes for complete H&P and ED course. I reviewed all returned diagnostic test results. My interpretation of the CXR is no acute findings. Returned blood test remarkable for WBC 36.8, K 7.4, anion gap 35, Cr 3.6, Glu 1258, LFT elevation, beta hydroxybutyrate > 6.4. ABG showed pH 6.89, pCO2 20, pHCO3 4. At this point, diagnoses include: DKA Patient coded at 1906. ACLS protocol followed, including 2 minutes chest compressions. Patient successfully intubated. Right femoral central line placed by resident. ROSC obtained at 1920. I discussed the case with our ICU service. About the presentation and exam and diagnostics and treatments here. And need of further care in the hospital. Will accept the patient Intubation procedure note: Time out performed: No (performed emergently) Laryngoscope: [place] ET Tube Size: 7.5 Tube Secured Depth (cm): 22 Tube Secured Location: teeth Tube Placement Confirmation: visualized tube passing through cords, equal breath sounds bilaterally, no breath sounds over epigastrium and confirmation by capnometry Patient Tolerated Procedure: well and no complications Clint Curiel MD <Gustavo Best MD - Last Filed: 11/28/24 21:52> Procedure: Femoral Central Line Findings: Performed emergently during CODE BLUE Washed hand before procedure No local anesthesia used Sterile barrier broken during CODE BLUE No US used during placement Triple Lumen Central Line placed Gustavo Best, PGY-2 Estimated blood loss (mL): 2
[2024-11-28] MEDS: Sodium Bicarb Inj 8.4% SYR 50 ML SYRINGE IV (18:16)
[2024-11-28] MEDS: Magnesium Sulfate 2 GM Ivpb 2 GM/50 ML BAG IV ×2 (18:18→23:12)
--- NOTE | 2024-11-28 18:29 | PC.NURSE ---
patient continues to be agitated and moving in bed had pulled out ivs from bilateral arms, continues to be short of breath,md at bedSIDE HAVE NEW ORDERS FOR BICARB, BICARD ADMINISTERED, AND PATIENT PLACED ON PADS, PATIENT IS NOW TO GET A CENTRAL LINE,
--- NOTE | 2024-11-28 18:33 | PC.NURSE ---
MDS AT BEDSIDE ATTEMPTING FOR A CENTRAL LINE AT THIS TIME
--- NOTE | 2024-11-28 18:40 | PC.NURSE ---
notified of low blood pressure while attempting central line
[2024-11-28] MEDS: EPINEPHrine in NS 4 MG IVPB 4 MG/250 ML BAG 13.948 MG IV (19:30)
--- NOTE | 2024-11-28 19:32 | XR_ITS ---
Examination: AP chest single view Technique one AP portable supine chest single view Date and time: November 28, 2024, 1930 hrs. Indications: Hypoxic respiratory failure postintubation. Findings: Mild prominence left ventricle Endotracheal tube tip 4.7 cm above venancio. No aspiration pneumonia or pulmonary edema Impression: No aspiration pneumonia or pulmonary edema
[2024-11-28 19:33] LABS: Base Excess, Venous -29 (-3-3); O2 Saturation, Venous 97 % (96-97); PCO2, Venous 35 mmHg (36-56); PO2, Venous 149 mmHg (15-58); pH, Venous 6.77 (7.33-7.66)
--- NOTE | 2024-11-28 19:33 | PC.NURSE ---
md was notified of patients breathing , md was told that patient need airway assistance, and md stated it was due to her high sugars,
--- NOTE | 2024-11-28 19:34 | PC.NURSE ---
patient then coded and compressions where inititated, while another central line was attempted from another md in the groin area,acls meds pushed
[2024-11-28] MEDS: MIDAZOLAM/NS 100 MG IVPB 100 MG/100 ML BAG IV ×2 (19:35→21:15)
[2024-11-28] MEDS: INSULIN HUM REGULAR 1 UNIT/0.01 ML (PER UNIT) 20 UNIT SC (19:47)
[2024-11-28 19:49] LABS: Beta Hydroxybutyrate > 6.4 mmol/L (<0.6)
[2024-11-28 19:50] LABS: INR 1.1 (0.9-1.3); Prothrombin Time 11.5 Seconds (9.0-12.2)
[2024-11-28] MEDS: Norepinephrine/D5W 8mg/250ml 8 MG/250 ML BAG 6.974 MG IV (19:50)
--- NOTE | 2024-11-28 19:50 | PC.NURSE ---
several attempts from lab to obtain labs had been made by different integrated circuit ic layout designer with no success, , jimmy Booth attempted with no success as well
[2024-11-28 19:52] LABS: Collection Type, Urine Clean Catch
--- NOTE | 2024-11-28 20:03 | ECHO_ITS ---
Transthoracic Echo Report Ht (in): 64 Wt (lb): 164 Exam Location: 254 Status: Emergency Tailor'S Aide: Tess Willis Indications: Procedure Performed: BP: 118 / 66 HR: 100 MEASUREMENTS (Male / Female) Normal Values 2D ECHO LV Diastolic Diameter PLAX 5.1 cm 4.2 - 5.9 / 3.9 - 5.3 cm LV Systolic Diameter PLAX 3.1 cm IVS Diastolic Thickness 0.8 cm 0.6 - 1.0 / 0.6 - 0.9 cm LVPW Diastolic Thickness 1.0 cm 0.6 - 1.0 / 0.6 - 0.9 cm LV Relative Wall Thickness 0.4 LVOT Diameter 2.1 cm DOPPLER AV Peak Velocity 165.0 cm/s AV Peak Gradient 10.9 mmHg AV Mean Gradient 6.0 mmHg AV Velocity Time Integral 27.5 cm LVOT Peak Velocity 127.0 cm/s LVOT Peak Gradient 6.5 mmHg LVOT Velocity Time Integral 23.4 cm LVOT Cardiac Index 4373.5 cm?/min?m? AV Area Cont Eq vti 2.9 cm? AV Area Cont Eq pk 2.7 cm? MV Area PHT 5.2 cm? Mitral E Point Velocity 76.6 cm/s Mitral A Point Velocity 72.8 cm/s Mitral E to A Ratio 1.1 LV E' Lateral Velocity 8.1 cm/s Mitral E to LV E' Lateral Ratio 9.5 LV E' Septal Velocity 6.3 cm/s Mitral E to LV E' Septal Ratio 12.1 TR Peak Velocity 189.0 cm/s TR Peak Gradient 14.3 mmHg PV Peak Velocity 121.0 cm/s PV Peak Gradient 5.9 mmHg FINDINGS Left Ventricle Hyperdynamic/ Normal left ventricular size, wall thickness, systolic function with no obvious regional wall motion abnormalities. Normal left ventricular diastolic filling pattern for age. The ejection fraction is visually estimated at 60-65 %. Right Ventricle The right ventricle is normal in size and systolic function. Left Atrium The left atrium is normal by two-dimensional, color flow and Doppler imaging with no structural abnormalities, no thrombus formation present. Right Atrium The right atrium is normal by two-dimensional imaging, color flow and Doppler imaging with no structural abnormalities, no thrombus formation present. Atrial Septum The interatrial septum appears normal with no evidence of a shunt. Aorta The aorta is normal by two-dimensional, color flow and Doppler interrogation. Mitral Valve The mitral valve is normal by two-dimensional, color flow and Doppler interrogation. There is no significant mitral valve regurgitation, stenosis or prolapse. Aortic Valve The aortic valve is trileaflet and normal by two-dimensional, color flow and Doppler interrogation. There is no significant aortic valve regurgitation. Tricuspid Valve The tricuspid valve is normal by two-dimensional, color flow and Doppler interrogation.There is trace tricuspid valve regurgitation. Pulmonic Valve The pulmonic valve is not well visualized. There is no significant pulmonic valve regurgitation. Vessels The pulmonary artery appears normal. The inferior vena cava pulmonary and hepatic veins appear normal. Pericardium There is a small pericardial effusion without cardiac tamponade. Other Findings TDS due to tachycardia. CONCLUSIONS Indication: drug use, r/o CHF TDS due to tachycardia.overall poor image quality. Hyperdynamic LV normal size. Normal diastolic dysfunction. EF estimated 60-65% Normal rightventricular size and function. Trace mitral and trace tricuspid regurgitation noted. There is a trivial pericardial effusion without cardiac tamponade. Compared to prior study of 06/06/22 Harish Carballo (Electronically Signed) Final Date: 29 November 2024 20:23
[2024-11-28 20:04] LABS: Base Excess -28 (-3-3); HCO3 4 mEq/L (20-26); O2 Saturation 99 % (91-98); PCO2 20 mmHg (32.0-48.0); PO2 300 mmHg (83-108)
[2024-11-28 20:06] LABS: Alanine Aminotransferase 483 U/L (10-49); Albumin, Serum 3.3 gm/dL (3.5-5.0); Albumin/Globulin Ratio 1.9 (1.2-2.2); Alkaline Phosphatase 97 U/L (46-116); Anion Gap 35 (7-16); BUN/Creatinine Ratio 13 Ratio (12-20); Bilirubin,Total 0.3 mg/dL (0.3-1.2); Blood Urea Nitrogen 47 mg/dL (9-23); Calcium 8.0 mg/dL (8.3-10.6); Calcium (Corrected) 8.6 mg/dL (8.5-10.1); Chloride 86 mMol/L (98-107); Creatinine (Component) 3.6 mg/dL (0.6-1.3); Estimated Creatinine Clearance 22.4 mL/min (>60); Globulin 1.7 gm/dL (2.3-3.5); Lipase 15 U/L (12-53); Osmolality,Calculated 338 (275-295); Sodium 131 mMol/L (136-145); Total Protein 5.0 gm/dL (5.7-8.2); eGFR 17 See Note
[2024-11-28 20:08] LABS: Allen Test Performed/OK; Inspired Oxygen, FIO2 60 %; Puncture Site Left Radial; pH, Arterial 6.89 (7.35-7.45)
[2024-11-28 20:09] LABS: Carbon Dioxide < 10.0 mMol/L (20.0-31.0); Glucose 1258 mg/dL (74-106); Potassium 7.4 mMol/L (3.4-5.1)
[2024-11-28] MEDS: PIPER/TAZO 3.375 GM PREMIX 3.375 GM/50 ML BAG IV (20:20)
[2024-11-28] MEDS: INSULIN REG 100 UNITS/100 ML 100 UNIT/100 ML BAG 7.439 UNIT IV (20:21)
--- NOTE | 2024-11-28 20:22 | PD.RESHP ---
Documentation for date of: 11/28/24 HPI History of Present Illness History of present illness: Chief complaint: Altered mentation HPI: Ms Main is a 29-year-old female with past medical history of poorly controlled type 1 diabetes, recurrent admissions for DKA, and polysubstance drug use who was BIBA to the ED on 11/28/2024. Patient was unresponsive in the ED at the start of the shift, most of the history was obtained from ER documentation. As per ED physician, patient complained of feeling like she is in DKA . She reported not taking insulin for the past 3 days. Her blood glucose read high on home monitor today. She denied chest pain, cough, or vomiting. She also endorsed using a rock of some substance earlier today. CODE blue called at 1905. ACLS protocol was initiated in the ER including chest compressions, epinephrine, and sodium bicarbonate. Patient was intubated by ED attending during the CODE. Patient was given Ca Gluc during the code and a RT LE IO access was placed. Eventually a successful LT femoral central line was placed. IV 20 units of insulin + 1L LR bolus was given --> ROSC was obtained at 1924. Only lab results available at the time of CODE BLUE was CBC which was remarkable for WBC 36.8, neutrophil predominant. UA showed rare bacteria, 4+ glucose and 3+ ketones. A chem panel sample was drawn by me and sent to lab, pending results. UTox positive for meth and cocaine. Patient was started on Insulin drip for DKA emperically. She was also started on Vancomycin and Zosyn, due to ED physician's concern for unsterilized procedure marrufo in acute setting. Patient to be admitted to ICU for further management. ABG sample drawn, other Lab results to follow. Allergies: Codeine- spasmodic abdo pain Social history: Marital?Status:?Single Tobacco?Use:?Denies ETOH?Use:?Socially Drug?Note:?meth+ , cocaine+ (same as in July 2024) Family history: Unknown Review of Systems Review of Systems ROS Unobtainable: unobtainable due to mental status Exam Vital Signs Temp Pulse Resp BP Pulse Ox O2 Del Method O2 Flow Rate 100 F 81 14 46/35 L 93 L Nasal Cannula 5 11/28/24 14:56 11/28/24 18:50 11/28/24 18:50 11/28/24 18:39 11/28/24 18:50 11/28/24 18:50 11/28/24 18:50 Narrative Exam Constitutional Obtunded, not oriented. Intubated in ED. HEENT Patent nares. Trachea midline. [place] -> MV Respiratory Chest normal on inspection, s/p KAROLYN compression -> mech breath sounds auscultation bilaterally Cardiovascular S1 and S2 audible, RRR. No murmurs carotid bruit. No gross JVD. Abdominal Soft and BS + ; LT femoral line Genitourinary Urinary bladder normal to palpation. Musculoskeletal Extremities tone within normal limits. No LE edema. RT leg IO access Neurological Unable to assess due to mental status. Skin Warm, dry and intact. No apparent lesions. Results: Labs 11/29/24 06:50 11/29/24 12:21 Labs: Short CBC 11/28/24 Range/Units 16:01 WBC 36.8 H* (3.6-11.0) Thou/mm3 Hgb 13.3 (12.0-16.0) g/dL Hct 44.1 (36.0-46.0) % Plt Count 336 D (140-440) Thou/mm3 BMP 11/28/24 19:20 Sodium 131 L Potassium 7.4 H* Chloride 86 L Carbon Dioxide < 10.0 L* BUN 47 H Creatinine 3.6 H Glucose 1258 H* Calcium 8.0 L Liver Function 11/28/24 Range/Units 19:20 Total Bilirubin 0.3 (0.3-1.2) mg/dL ALT 483 H (10-49) U/L Alkaline Phosphatase 97 (46-116) U/L Albumin 3.3 L (3.5-5.0) gm/dL ABG Interpretation ABG results: 11/28/24 11/28/24 19:20 19:52 ABG pH 6.89 L* ABG pCO2 20 L ABG pO2 300 H ABG HCO3 4 L* ABG O2 Saturation 99 H ABG Base Excess -28 L VBG pH 6.77 L VBG pCO2 35 L VBG pO2 149 H VBG Base Excess -29 L Quality Measures Quality Measures VTE prophylaxis Medications Home Medications and Allergies Home Medications ?Medication ?Instructions ?Recorded ?Confirmed ?Type buprenorphine 12 mg-naloxone 3 mg buccal 05/11/24 History sublingual film Allergies Allergy/AdvReac Type Severity Reaction Status Date / Time codeine Allergy Intermediate Abdominal Verified 11/27/24 15:32 Pain Visit Medications Calcium Gluconate (Calcium Gluconate 10% Inj 1 Gm/10 Ml Vial) 1 gm IV PRN PRN PRN Reason: SEE DOSE INSTRUCTIONS Dextrose (Dextrose 50%-Water Inj 50 Ml Syringe) 25 ml IV [id number] PRN PRN Reason: Blood Sugar - Low Enoxaparin Sodium (Enoxaparin Sod Inj 40 Mg/0.4 Ml Syringe) 30 mg SC QDAY [facility] Stop: 12/13/24 08:59 Magnesium Sulfate (Magnesium Sulfate Ivpb) 4 gm in 50 mls @ 12.5 mls/hr IV X1 ONE Stop: 11/28/24 23:25 Piperacillin/Tazobactam/Dextrose (Zosyn) 3.375 gm in 50 mls @ 100 mls/hr IV Q6HR ONE; Protocol Stop: 11/28/24 19:58 Vancomycin/Sodium Chloride (Vancomycin/Ns 1 Gm Ivpb) 200 mls @ 100 mls/hr IV X1 ONE Stop: 11/28/24 22:29 Epinephrine/Sodium Chloride (Adrenalin/Ns 4 Mg Ivpb) 4 mg in 250 mls @ 13.948 mls/hr IV .[id number] PRN; Protocol PRN Reason: per protocol Stop: 12/28/24 19:31 Midazolam HCl (Versed Pf Inj In Ns Premix) 100 mg in 100 mls @ 1 mls/hr IV .Q24H PRN; Protocol PRN Reason: PER PROTOCOL Stop: 12/03/24 19:33 Last Admin: 11/28/24 19:35 Dose: 1 mg/hr, 1 mls/hr Norepinephrine/Dextrose (Levophed In D5w 8mg/250ml) 8 mg in 250 mls @ 6.974 mls/hr IV .Q24H PRN; Protocol PRN Reason: PER PROTOCOL Stop: 12/28/24 19:40 Sodium Bicarbonate 88.23 meq/ (Dextrose) 588.23 mls @ 100 mls/hr IV .Q5H53M TRUDI Stop: 12/28/24 19:50 Insulin Human Regular (Myxredlin) 100 unit in 100 mls @ 7.439 mls/hr IV .[id number] PRN; Protocol PRN Reason: PER PROTOCOL Stop: 12/28/24 19:55 Potassium Chloride (Kcl Ivpb) 10 meq in 100 mls @ 100 mls/hr IV .Q1H PRN PRN Reason: IF POTASSIUM LESS THAN 3.3 Stop: 12/28/24 20:04 Magnesium Sulfate (Magnesium Sulfate Ivpb) 2 gm in 50 mls @ 25 mls/hr IV .Q2H PRN PRN Reason: PER DKA PROTOCOL Stop: 12/28/24 20:04 Dextrose/Lactated Ringer's (D5-Lr) 1,000 mls @ 250 mls/hr IV .Q4H PRN PRN Reason: PER PROTOCOL Stop: 12/28/24 20:04 Lactated Ringer's (Lactated Ringers) 1,000 mls @ 250 mls/hr IV .Q4H PRN PRN Reason: PER PROTOCOL Stop: 11/29/24 20:04 Potassium Chloride 20 meq/ (Lactated Ringer's) 1,010 mls @ 250 mls/hr IV .Q4H3M PRN PRN Reason: K LEVEL 3.3 TO 5.3mM/L Stop: 12/28/24 20:04 Potassium Chloride 40 meq/ (Lactated Ringer's) 1,020 mls @ 250 mls/hr IV .Q4H5M PRN PRN Reason: K LEVEL < 3.3 mM/L Stop: 12/28/24 20:04 Potassium Chloride 40 meq/ (Dextrose/Lactated Ringer's) 1,020 mls @ 250 mls/hr IV .Q4H5M PRN PRN Reason: K LEVEL < 3.3mM/L Stop: 12/28/24 20:04 Potassium Cl/Dextrose/Lact Ringer's (Kcl 20 Meq/L In D5-Lr) 20 meq in 1,000 mls @ 250 mls/hr IV .Q4H PRN PRN Reason: K LEVEL 3.3 TO 5.3 mM/L Potassium Chloride (Kcl Ivpb) 10 meq in 100 mls @ 50 mls/hr IV PRN PRN PRN Reason: K LEVEL 3.3 to 5.3 & BG > 200 Stop: 12/28/24 20:04 Potassium Phosphate (Pot Phos 15 Mmol In Ns 250 Ml) 15 mmol in 250 mls @ 62.5 mls/hr IV PRN PRN PRN Reason: Phosphate <= 1mg/dL Stop: 12/28/24 20:04 Sodium Phosphate 15 mmol/ (Sodium Chloride) 255 mls @ 62.5 mls/hr IV .Q4H5M PRN PRN Reason: Phosphate <= 1mg/dL and K> than 5.3 Stop: 12/28/24 20:04 Ondansetron HCl (Ondansetron Inj 2 Mg/Ml Inj 2 Ml) 4 mg IVP Q6H PRN; Protocol PRN Reason: NAUSEA OR VOMITING Stop: 12/28/24 19:59 Pharmacy Consult (Vancomycin Pharmacy To Dose 1 Each Each) 1 each IV QDAY TRUDI Stop: 12/28/24 19:29 Pharmacy Consult (Pharmacy Renal Dose Adjustment 1 Ea) 1 each XX QDAY TRUDI Stop: 12/29/24 08:59 Sodium Bicarbonate (Sodium Bicarb Inj 8.4% Syr 50 Ml Syringe) 50 ml IV Q4HR PRN PRN Reason: For ph <= to 7.0 Stop: 12/28/24 20:04 Sodium Chloride (Sodium Chloride Rt 10% 15 Ml Nebu) 5 ml INH X1 PRN PRN Reason: SPUTUM CLEARANCE Stop: 12/28/24 19:35 Discontinued Medications Calcium Gluconate (Calcium Gluconate 10% Inj 1 Gm/10 Ml Vial) 2 gm IV X1 ONE Stop: 11/28/24 19:26 Lactated Ringer's (Lactated Ringers) 1,000 mls @ 999 mls/hr IV .Q1H1M ONE Stop: 11/28/24 15:58 Last Admin: 11/28/24 16:49 Dose: 999 mls/hr Lactated Ringer's (Lactated Ringers) 1,000 mls @ 999 mls/hr IV .Q1H1M ONE Stop: 11/28/24 15:58 Last Admin: 11/28/24 16:51 Dose: 999 mls/hr Lactated Ringer's (Lactated Ringers) 1,000 mls @ 999 mls/hr IV .Q1H1M ONE Stop: 11/28/24 15:59 Last Infusion: 11/28/24 17:52 Dose: Infused Magnesium Sulfate (Magnesium Sulfate Ivpb) 2 gm in 50 mls @ 25 mls/hr IV X1 ONE Stop: 11/28/24 20:10 Last Admin: 11/28/24 18:18 Dose: 25 mls/hr Potassium Chloride (Kcl Ivpb) 20 meq in 100 mls @ 50 mls/hr IV Q2H TRUDI Stop: 11/28/24 23:26 Last Admin: 11/28/24 20:01 Dose: 50 mls/hr Piperacillin/Tazobactam/Dextrose (Zosyn) 3.375 gm in 50 mls @ 100 mls/hr IV X1 ONE; Protocol Stop: 11/28/24 19:59 Last Admin: 11/28/24 20:20 Dose: 100 mls/hr Insulin Human Regular (Insulin Hum Regular 1 Unit/0.01 Ml (Per Unit)) 20 unit SC X1 ONE Stop: 11/28/24 19:41 Last Admin: 11/28/24 19:47 Dose: 20 unit Sodium Bicarbonate (Sodium Bicarbonate 4.2% 0.5 Meq/Ml Vial 5 Ml) 2.5 meq IV X1 ONE Stop: 11/28/24 18:07 Sodium Bicarbonate (Sodium Bicarb Inj 8.4% Syr 50 Ml Syringe) 50 ml IV X1 ONE Stop: 11/28/24 18:10 Last Admin: 11/28/24 18:16 Dose: 50 ml Sodium Bicarbonate (Sodium Bicarb Inj 8.4% Syr 50 Ml Syringe) 100 ml IV X1 ONE Stop: 11/28/24 19:52 Assessment & Plan Plan Ms Mullen is a 29 year old female admitted to ICU for DKA. CVS Cardiac arrest s/p CODE BLUE - ROSC In 20 minutes Dx: - CODE BLUE in ED for 20 mins, patient received 2 rounda of Epi. - Unable to reach family on contact sheet Rx: - Cardiology is consulted, appreciate recommendations. Will see patient am. - Follow up Head CT ordered to r/o hypoxic brain injury - EKG ordered post ROSC - student services dean referral. Day Team to have GoC with family. - Keep Mg and K in optimized range NEURO Acute metabolic encephalopathy Substance intoxication - Meth+, cocaine+ Dx: - Etiology: Drug use, DKA - U-Tox positive for methamphetamine and cocaine. Patient initially endorsed use as well Rx: - Started on Propofol gtt and Versed gtt, RAAS -3 - Continue to monitor mental status, titrate down RAAS - Anticipate improvement with DKA treatment and fluids - Previously treated with anxiolytics during hospitalization, keep low threshold once off sedation PULM No acute problems ENDO Diabetic ketoacidosis Insulin-dependent diabetes mellitus type 1 [11.7%] Dx: - Secondary to noncompliance - Beta hydroxybutyrate > 6.4 , blood glucose 1258, anion gap 35 - Initial ABG: pH 6.89 at 6:52pm --> 7.02 at 9pm ; Bicarb <10 - K 7.4, Phos 18.8, AST >1000 and ALT 483 Rx: - Insulin gtt per DKA protocol - IVF resuscitation with LR @ 250 cc/h - Replete electrolytes as necessary - Q3H renal panel History of hypothyroidism Dx: - On Levothyroxine 88 mcg p.o. daily Rx: - Follow up TSH and free T4 results - Started IV Levothyroxine 68mcg. Transition to PO as mentation improves. GI/Hep No active problems RENAL Acute kidney injury DDx: - Likely prerenal secondary to dehydration and lactic acidosis - RFT: BUN 47, Cr 3.6 (baseline Cr 0.8), GFR 17 Rx: - Renally dose medications like anticoagulants and antibiotics - Avoid nephrotoxic agents - On maintenance IVF : LR @250 cc/h - Q3h renal panel checks ID UTI Leukocytosis Dx: - Urinalysis positive for rare bacteria, 4+ glucose and 3+ ketones - WBC 36.8, neutrophil predominant Rx: - Vancomycin PTD x1 given - Ceftriaxone 2 g IV x1 loading dose - Continue Rocephin 1g daily (11/29 - - Follow-up blood and urine cultures ICU Health maintenance: Dispo: Admit to ICU for DKA management Diet: NPO DVT ppx: Enoxaparin 30mg SC daily (renally dosed) GI ppx: Protonix 40mg qD IV lines: 2 pIV Central line: LT femoral Arterial line: No [place]: Yes Code status: FULL CODE Plan of care discussed with attending Dilan Russo M.D. PGY3 Disclaimer: Minor errors in assistant center director may be present as this note was dictated using voice recognition software. Attending Provider Attestation/Addendum After examination of the patient and review of the clinical data I feel that this patient needs admission to the hospital for further treatment/evaluation. TOTAL CC TIME: 75 MIN TOTAL TIME: 75 Minutes of direct medical management and planning of care. I Harvey Bedoya MD, attest that I was physically present for inman portions of evaluation, and examined patient, labs and imagings and plan of care were discussed with IM residents team, and I agree with the findings and plans documented above.
--- NOTE | 2024-11-28 20:43 | PC.RT ---
Assisted Dr Curiel with Intubation procedure. Patient intubated for AWP @1908 with a 7.5 ETT at 22cm to the teeth. No complications during intubation. Positive color change on EtCO2 and bilateral breath sounds heard throughout. Elizabeth CORREIART-SUPERVISOR HEAT TREATING.
[2024-11-28 20:44] LABS: Aspartate Amino Transferase > 1000 U/L (0-34)
[2024-11-28] MEDS: PROPOFOL 1,000 MG IVPB 1,000 MG/100 ML VIAL 2.232 MG IV (20:49)
[2024-11-28 21:05] LABS: Base Excess -25 (-3-3); HCO3 5 mEq/L (20-26); Inspired Oxygen, FIO2 60 %; O2 Saturation 100 % (91-98); PCO2 19 mmHg (32.0-48.0); PO2 261 mmHg (83-108)
[2024-11-28 21:14] LABS: Allen Test Performed/OK; Puncture Site Left Radial; pH, Arterial 7.02 (7.35-7.45)
[2024-11-28 21:16] LABS: Magnesium 3.6 mg/dL (1.6-2.6)
[2024-11-28 21:28] LABS: Phosphorous 18.8 mg/dL (2.4-5.1)
[2024-11-28] MEDS: RINGERS LACTATED 1000 ML 1,000 ML 250 ML IV (21:30)
[2024-11-28] MEDS: CALCIUM GLUCONATE 10% INJ 1 GM/10 ML VIAL 2 GM IV (21:44)
[2024-11-28] MEDS: Sodium Bicarb Inj 8.4% SYR 50 ML SYRINGE 100 ML IV (21:45)
[2024-11-28] MEDS: Sodium Bicarb 8.4% 50ml Vial* 88.23 MEQ in DEXTROSE 5%-WATER 500 ML 100 MEQ IV (22:03)
[2024-11-28 22:41] LABS: Lactate (Lactic Acid) 10.0 mMol/L (0.4-2.0)
[2024-11-28 22:46] LABS: Bacteria,Urine Rare; Bilirubin,Urine Negative (Negative); Blood,Urine 1+ (Negative); Clarity,Urine Clear (Clear/Hazy); Color,Urine Lt-Yellow (Lt Yel-Yel); Glucose, Urine 4+ (Negative); Hyaline Casts,Urine < 1 /hpf (0-1); Ketones,Urine 2+ (Negative); Leukocyte Esterase,Urine Positive (Negative); Nitrite,Urine Negative (Negative); PH,Urine 5.5 (5.0-7.0); Protein,Urine 1+ (Neg - Trace); RBC,Urine 8 /hpf (0-3); Specific Gravity,Urine 1.021 (1.001-1.035); Squamous Epithelial Cell,Urine 5 /hpf (0-5); Urobilinogen,Urine Negative mg/dL (0.0-1.0); WBC,Urine 17 /hpf (0-5)
--- NOTE | 2024-11-28 22:46 | EKG_ITS ---
[facility] Test Date: 2024-11-28 Pat Name: MARIBEL JOHNSON [facility] Gender: Female Medical Research Assistant: PRASHANT : 1995 Requested By: Zaid Soto Order Number: [id number] Reading MD: Zaid Soto Measurements Intervals [place] Rate: 116 P: 77 [place]: 136 QRS: 73 QRSD: 81 T: 72 QT: 348 QTc: 484 Interpretive Statements SINUS TACHYCARDIA POSSIBLE LEFT ATRIAL ENLARGEMENT ABNORMAL RHYTHM ECG Compared to ECG 07/09/2024 22:51:43 No significant changes /store/S0/[id number].pdf
[2024-11-28 22:51] LABS: Culture Indicated,Urine Yes
[2024-11-28 22:59] LABS: Albumin, Serum 3.5 gm/dL (3.5-5.0); Anion Gap 36 (7-16); BUN/Creatinine Ratio 17 Ratio (12-20); Blood Urea Nitrogen 58 mg/dL (9-23); Calcium 8.5 mg/dL (8.3-10.6); Calcium (Corrected) 8.9 mg/dL (8.5-10.1); Chloride 91 mMol/L (98-107); Creatinine (Component) 3.5 mg/dL (0.6-1.3); Estimated Creatinine Clearance 23.0 mL/min (>60); Potassium 4.7 mMol/L (3.4-5.1); Sodium 137 mMol/L (136-145); eGFR 17 See Note
[2024-11-28 23:06] LABS: Osmolality,Calculated 339 (275-295)
[2024-11-28 23:08] LABS: Carbon Dioxide < 10.0 mMol/L (20.0-31.0)
[2024-11-28 23:09] LABS: Glucose 987 mg/dL (74-106)
[2024-11-28 23:16] LABS: Thyroid Stimulating Hormone 7.10 uIU/mL (0.55-4.78)
[2024-11-28 23:17] LABS: Phosphorous 10.1 mg/dL (2.4-5.1)
[2024-11-28] MEDS: SODIUM CHLORIDE 0.9% 1000 ML 1,000 ML 999 ML IV (23:32)
[2024-11-28] MEDS: cefTRIAXone 2 GM in SODIUM CHLORIDE 0.9% (Popper) 50 ML IV (23:39)
[2024-11-28] MEDS: fentaNYL 2,500 MCG/250 ML BAG 2,500 MCG/250 ML BAG IV (23:56)
[2024-11-29] VITALS (52 sets, daily range): BP systolic 102–167; BP diastolic 58–101; PULSE 68–114; RESP 14–28; TEMP 36.4–37.6; O2SAT 97–100; BMI 29.9
--- NOTE | 2024-11-29 00:09 | PC.NURSE ---
THIS CORPORATE COORDINATOR WALKED INTO PT ROOM AT 190 TO ASSESS PT AND TO RECEIVE BEDSIDE REPORT FROM FLOR SÁNCHEZ. DR BENTON SEEN AT BEDSIDE ATTEMPTING TO PLACE A CENTRAL LINE. PTS VITALS WERE NOTED ON MONITOR TO BE UNSTABLE AND DR CANELA NOTIFIED OF PTS STATUS. AT 190 APPEARED TO BE BREATHING AGONALLY . CORPORATE COORDINATOR PROVIDING ASSISTED VENTILATION VIA AMBUBAG. RT CALLED. PULSES LOST AT 1905 CODE BLUE INITIATED. SEE CODE SHEET FOR MORE DETAILS
[2024-11-29] MEDS: POTASSIUM CHL 10 mEq IVPB 10 MEQ/100 ML BAG 50 MEQ IV ×2 (00:15→02:14)
[2024-11-29] MEDS: Vancomycin Inj 2,000 MG in SODIUM CHLORIDE 0.9% 500 ML 500 ML 150 MG IV (00:54)
[2024-11-29 01:35] LABS: Base Excess -10 (-3-3); HCO3 13 mEq/L (20-26); O2 Saturation 99 % (91-98); PCO2 23 mmHg (32.0-48.0); PO2 132 mmHg (83-108); pH, Arterial 7.36 (7.35-7.45)
[2024-11-29 01:36] LABS: Allen Test Performed/OK; Inspired Oxygen, FIO2 35 %; Puncture Site Right Radial
[2024-11-29 01:36] LABS: Reflex Lactate? Y
[2024-11-29 01:41] LABS: Lactic Acid, 3 HR 3.4 mMol/L (0.4-2.0)
[2024-11-29] MEDS: RINGERS LACTATED 1000 ML 1,000 ML 250 ML IV (02:14)
[2024-11-29 02:39] LABS: Lactate (Lactic Acid) 2.7 mMol/L (0.4-2.0)
[2024-11-29 03:07] LABS: Albumin, Serum 3.1 gm/dL (3.5-5.0); Anion Gap 24 (7-16); BUN/Creatinine Ratio 18 Ratio (12-20); Blood Urea Nitrogen 48 mg/dL (9-23); Calcium 7.9 mg/dL (8.3-10.6); Calcium (Corrected) 8.6 mg/dL (8.5-10.1); Carbon Dioxide 19.8 mMol/L (20.0-31.0); Chloride 100 mMol/L (98-107); Creatinine (Component) 2.7 mg/dL (0.6-1.3); Estimated Creatinine Clearance 30.7 mL/min (>60); Free T4 (Free Thyroxine) 1.03 ng/dL (0.89-1.76); Magnesium 3.4 mg/dL (1.6-2.6); Osmolality,Calculated 328 (275-295); Phosphorous 3.1 mg/dL (2.4-5.1); Potassium 3.6 mMol/L (3.4-5.1); Sodium 144 mMol/L (136-145); eGFR 23 See Note
[2024-11-29 03:12] LABS: Glucose 624 mg/dL (74-106)
[2024-11-29 04:34] LABS: Base Excess 2 (-3-3); HCO3 26 mEq/L (20-26); Inspired Oxygen, FIO2 30 %; O2 Saturation 99 % (91-98); PCO2 36 mmHg (32.0-48.0); PO2 97 mmHg (83-108); pH, Arterial 7.46 (7.35-7.45)
[2024-11-29 04:37] LABS: Allen Test Performed/OK; Puncture Site Left Radial
[2024-11-29] MEDS: PROPOFOL 1,000 MG IVPB 1,000 MG/100 ML VIAL 11.158 MG IV (04:58)
[2024-11-29 05:28] LABS: Lactate (Lactic Acid) 2.8 mMol/L (0.4-2.0)
[2024-11-29 05:37] LABS: Reflex Lactate? Y
[2024-11-29 06:18] LABS: Alanine Aminotransferase 665 U/L (10-49); Albumin, Serum 2.9 gm/dL (3.5-5.0); Albumin/Globulin Ratio 1.6 (1.2-2.2); Alkaline Phosphatase 84 U/L (46-116); Anion Gap 20 (7-16); BUN/Creatinine Ratio 12 Ratio (12-20); Bilirubin,Total 0.3 mg/dL (0.3-1.2); Blood Urea Nitrogen 28 mg/dL (9-23); Calcium 8.1 mg/dL (8.3-10.6); Calcium (Corrected) 9.0 mg/dL (8.5-10.1); Carbon Dioxide 22.7 mMol/L (20.0-31.0); Chloride 102 mMol/L (98-107); Creatinine (Component) 2.4 mg/dL (0.6-1.3); Estimated Creatinine Clearance 34.5 mL/min (>60); Globulin 1.8 gm/dL (2.3-3.5); Magnesium 3.2 mg/dL (1.6-2.6); Osmolality,Calculated 312 (275-295); Phosphorous 2.5 mg/dL (2.4-5.1); Potassium 3.5 mMol/L (3.4-5.1); Sodium 145 mMol/L (136-145); Total Protein 4.7 gm/dL (5.7-8.2); eGFR 27 See Note
[2024-11-29 06:27] LABS: Glucose 419 mg/dL (74-106)
[2024-11-29 07:20] LABS: Lactic Acid, 3 HR 3.8 mMol/L (0.4-2.0)
[2024-11-29 07:36] LABS: Basophils # (Auto) 0.1 Thou/mm3 (0.0-0.2); Basophils % (Auto) 0 % (0-2.5); Eosinophils # (Auto) 0.0 Thou/mm3 (0.0-0.5); Eosinophils % (Auto) 0 % (0-10); Hematocrit 34.0 % (36.0-46.0); Hemoglobin 12.0 g/dL (12.0-16.0); Immature Granulocytes Auto 0.93 Thou/mm3 (0.00-0.00); Lymphocytes # (Auto) 2.4 Thou/mm3 (1.0-4.8); Lymphocytes % (Auto) 9 % (10-50); Mean Corpuscular HGB Conc 35.3 g/dl (31.0-37.0); Mean Corpuscular Hemoglobin 29.5 pg (25.0-35.0); Mean Corpuscular Volume 84 fL (80-100); Monocytes # (Auto) 1.2 Thou/mm3 (0.0-0.8); Monocytes % (Auto) 5 % (0-12); Neutrophils # (Auto) 20.7 Thou/mm3 (1.8-7.7); Neutrophils % (Auto) 82 % (37-80); Nucleated Red Blood Cell # 0.00 Thou/mm3 (0.00-0.00); Nucleated Red Blood Cell % 0 /100 WBC (0); Platelet Count 199 Thou/mm3 (140-440); RDW Standard Deviation 39.4 fL (36.4-46.3); Red Blood Count 4.07 Miln/mm3 (4.00-5.20); White Blood Count 25.3 Thou/mm3 (3.6-11.0)
[2024-11-29] MEDS: INSULIN REG 100 UNITS/100 ML 100 UNIT/100 ML BAG 7.439 UNIT IV (07:41)
[2024-11-29] MEDS: ENOXAPARIN SOD INJ 30 MG/0.3 ML SYRINGE SC (07:44)
[2024-11-29 07:58] LABS: Acetaminophen < 2.0 mcg/mL (10.0-20.0)
[2024-11-29 08:00] LABS: Glucose Estimated Average 298 mg/dL (80-131); Hemoglobin A1C 12.0 % Hgb (4.8-6.0)
[2024-11-29] MEDS: POT CHL ADDITIVE 20 MEQ in RINGERS LACTATED 1000 ML 1,000 ML 250 MEQ IV (08:05)
[2024-11-29 08:27] LABS: Reflex Lactate? Y
[2024-11-29 08:51] LABS: D-Dimer 875 ng/mL (<600)
[2024-11-29 08:55] LABS: Fibrinogen 256 mg/dL (175-375); INR 1.1 (0.9-1.3); Partial Thromboplastin Time 21.3 Seconds (22.0-36.0); Prothrombin Time 11.3 Seconds (9.0-12.2)
[2024-11-29] MEDS: cefTRIAXone/D5w 1gm IV premix 1 GM/50 ML BAG IV (09:04)
[2024-11-29 09:34] LABS: Lactate (Lactic Acid) 1.7 mMol/L (0.4-2.0)
--- NOTE | 2024-11-29 10:35 | PC.SS ---
HOST/HOSTESS HEAD attempted phone contact with patient's listed surrogate medical decision maker, Jere Schreiber [phone]. No response HOST/HOSTESS HEAD left message requesting return call. HOST/HOSTESS HEAD updated ICU resident.
[2024-11-29] MEDS: POT CHL ADDITIVE 20 MEQ in DEXTROSE 5%-LACTATED RINGERS 1,000 ML 250 MEQ IV ×3 (10:42→20:15)
[2024-11-29] MEDS: MIDAZOLAM INJ 1 MG/ML VIAL 2 ML 2 MG IVP (11:25)
--- NOTE | 2024-11-29 11:31 | PC.SS ---
RELATIONSHIP MGR attempted phone contact with patient's listed surrogate medical decision maker, Jere Schreiber [phone]. No response RELATIONSHIP MGR left message requesting return call.
--- NOTE | 2024-11-29 11:44 | XR_ITS ---
Examination: AP chest single view Technique one AP portable semiupright chest single view Date and time: December 09, 2024, 1153 hours, comparison November 28, 2024 INDICATIONS: Post central line placement. FINDINGS: Right internal jugular central line tip SVC satisfactory position, no pneumothorax Endotracheal tube tip 5.8 cm above venancio. The orogastric tube is in the stomach, the tip is below the level film Normal heart size No pneumonia or pulmonary edema IMPRESSION: Interval insertion right internal jugular central line, tip in satisfactory position, no pneumothorax
--- NOTE | 2024-11-29 12:00 | ESPR_ITS ---
Documentation for date of: 11/29/24 Subjective Subjective Interval history: This is a 29-year-old female who presents to the ER yesterday for DKA. She underwent an arrest with CPR administered for approximately 20 minutes prior to ROSC. ROSC was established the patient was intubated and a central line was placed. She was given 3 L of fluids in the ER. She was noted to be severely acidotic. She was started on a bicarb. She was hypotensive and started on Levophed and epinephrine. Her vasopressors were weaned off this morning around 6 AM. Her bicarb drip was also stopped. This morning her labs look improved. Her propofol and fentanyl have been placed on hold to assess her underlying neurological status. She is currently afebrile with good urinary output. It is noted that her UTOX is positive for meth and cocaine. Critical Care Note Critical care time (min.): 46 Exam Vital Signs Temp Pulse Resp BP Pulse Ox O2 Del Method O2 Flow Rate 97.6 F 96 26 H 129/81 100 Mechanical Ventilation 5 11/29/24 04:00 11/29/24 11:00 11/29/24 10:00 11/29/24 11:00 11/29/24 11:00 11/29/24 08:00 11/28/24 18:50 FiO2 30 11/29/24 10:10 Narrative Exam General-intubated, sedated, appears to have flexure posturing of her right upper extremity on noxious stimuli, GCS 5 T. Normal body habitus HEENT-normocephalic, atraumatic, sclera icteric, oral mucosa is hydrated, ET tube and OG tube in place, pupils sluggish Chest-lungs clear to auscultation bilaterally, heart rate rhythm rhythmic, no bradycardia murmurs auscultated times exam, no increased work of breathing noted Abdomen-soft, nontender, bowel sounds present, no rebound or guarding Extremities-no edema of the lower extremities, pulses palpable, no clubbing or cyanosis, no mottling, flexor posturing of right upper extremity, withdraws bilateral lower extremities, no movement of left upper extremity Vent AC/VC Drips Propofol Fentanyl Insulin IV fluid Physical Exam Completion Physical Exam Complete?: Yes 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 11/29/24 06:50 11/29/24 12:21 Labs: Laboratory Results - last 24 hr 11/28/24 11/28/24 11/28/24 16:01 17:42 19:20 WBC 36.8 H* RBC 4.58 Hgb 13.3 Hct 44.1 MCV 96 MCH 29.0 MCHC 30.2 L RDW Std Deviation 50.2 H Plt Count 336 D Neut % (Auto) 82 H Lymph % (Auto) 6 L [place] % (Auto) 8 Eos % (Auto) 0 Baso % (Auto) 1 Neut # (Auto) 30.1 H Lymph # (Auto) 2.3 [place] # (Auto) 3.0 H Eos # (Auto) 0.0 Baso # (Auto) 0.2 Immature Gran # (Auto) 1.11 H Absolute Nucleated RBC 0.00 Immature Gran % 3 H Nucleated RBC % 0 Smear Path Review Sent to Pathologist PT 11.5 INR 1.1 APTT Fibrinogen D-Dimer Puncture Site ABG pH ABG pCO2 ABG pO2 ABG HCO3 ABG O2 Saturation ABG Base Excess VBG pH 6.77 L VBG pCO2 35 L VBG pO2 149 H VBG O2 Sat (Marcelo) 97 VBG Base Excess -29 L FiO2 Sodium 131 L Potassium 7.4 H* Chloride 86 L Carbon Dioxide < 10.0 L* Anion Gap 35 H BUN 47 H Creatinine 3.6 H Estim Creat Clear Calc 22.4 L eGFR 17 L BUN/Creatinine Ratio 13 Glucose 1258 H* Estimated Ave Glu mg/dL Hemoglobin A1c Calculated Osmolality 338 H Lactic Acid Calcium 8.0 L Corrected Calcium 8.6 Phosphorus 18.8 H Magnesium 3.6 H Total Bilirubin 0.3 AST > 1000 H* ALT 483 H Alkaline Phosphatase 97 Total Protein 5.0 L Albumin 3.3 L Globulin 1.7 L Albumin/Globulin Ratio 1.9 Lipase 15 Beta-Hydroxybutyrate/Acetoacetate > 6.4 H TSH Free T4 HCG, Qual Negative Cancelled Ur Collection Type Urine Color Urine Clarity Urine pH Ur Specific [place] Urine Protein Urine Glucose (UA) Urine Ketones Urine Blood Urine Nitrite Urine Bilirubin Urine Urobilinogen (Auto) Ur Leukocyte Esterase Urine RBC Urine WBC Ur Squamous Epith Cells Urine Bacteria Hyaline Casts Ur Culture Indicated? Acetaminophen 11/28/24 11/28/24 11/28/24 19:35 19:52 21:00 WBC RBC Hgb Hct MCV MCH MCHC RDW Std Deviation Plt Count Neut % (Auto) Lymph % (Auto) [place] % (Auto) Eos % (Auto) Baso % (Auto) Neut # (Auto) Lymph # (Auto) [place] # (Auto) Eos # (Auto) Baso # (Auto) Immature Gran # (Auto) Absolute Nucleated RBC Immature Gran % Nucleated RBC % Smear Path Review PT INR APTT Fibrinogen D-Dimer Puncture Site Left Radial Left Radial ABG pH 6.89 L* 7.02 L* D ABG pCO2 20 L 19 L* ABG pO2 300 H 261 H D ABG HCO3 4 L* 5 L* ABG O2 Saturation 99 H 100 H ABG Base Excess -28 L -25 L VBG pH VBG pCO2 VBG pO2 VBG O2 Sat ([place]arcelo) VBG Base Excess FiO2 60 60 Sodium Potassium Chloride Carbon Dioxide Anion Gap BUN Creatinine Estim Creat Clear Calc eGFR BUN/Creatinine Ratio Glucose Estimated Ave Glu mg/dL Hemoglobin A1c Calculated Osmolality Lactic Acid Calcium Corrected Calcium Phosphorus Magnesium Total Bilirubin AST ALT Alkaline Phosphatase Total Protein Albumin Globulin Albumin/Globulin Ratio Lipase Beta-Hydroxybutyrate/Acetoacetate TSH Free T4 HCG, Qual Ur Collection Type Clean Catch Urine Color Lt-Yellow Urine Clarity Clear Urine pH 5.5 Ur Specific [place] 1.021 Urine Protein 1+ A Urine Glucose (UA) 4+ A Urine Ketones 2+ A Urine Blood 1+ A Urine Nitrite Negative Urine Bilirubin Negative Urine Urobilinogen (Auto) Negative Ur Leukocyte Esterase Positive Urine RBC 8 H Urine WBC 17 H Ur Squamous Epith Cells 5 Urine Bacteria Rare Hyaline Casts < 1 Ur Culture Indicated? Yes Acetaminophen 11/28/24 11/29/24 11/29/24 22:26 01:28 02:31 WBC RBC Hgb Hct MCV MCH MCHC RDW Std Deviation Plt Count Neut % (Auto) Lymph % (Auto) [place] % (Auto) Eos % (Auto) Baso % (Auto) Neut # (Auto) Lymph # (Auto) [place] # (Auto) Eos # (Auto) Baso # (Auto) Immature Gran # (Auto) Absolute Nucleated RBC Immature Gran % Nucleated RBC % Smear Path Review PT INR APTT Fibrinogen D-Dimer Puncture Site Right Radial ABG pH 7.36 D ABG pCO2 23 L ABG pO2 132 H D ABG HCO3 13 L ABG O2 Saturation 99 H ABG Base Excess -10 L VBG pH VBG pCO2 VBG pO2 VBG O2 Sat (Marcelo) VBG Base Excess FiO2 35 Sodium 137 144 Potassium 4.7 D 3.6 D Chloride 91 L 100 Carbon Dioxide < 10.0 L* 19.8 L Anion Gap 36 H 24 H BUN 58 H 48 H Creatinine 3.5 H 2.7 H D Estim Creat Clear Calc 23.0 L 30.7 L eGFR 17 L 23 L BUN/Creatinine Ratio 17 18 Glucose 987 H* D 624 H* D Estimated Ave Glu mg/dL Hemoglobin A1c Calculated Osmolality 339 H 328 H Lactic Acid 10.0 H* 3.4 H 2.7 H Calcium 8.5 7.9 L Corrected Calcium 8.9 8.6 Phosphorus 10.1 H 3.1 Magnesium 3.4 H Total Bilirubin AST ALT Alkaline Phosphatase Total Protein Albumin 3.5 3.1 L Globulin Albumin/Globulin Ratio Lipase Beta-Hydroxybutyrate/Acetoacetate TSH 7.10 H Free T4 1.03 HCG, Qual Ur Collection Type Urine Color Urine Clarity Urine pH Ur Specific [place] Urine Protein Urine Glucose (UA) Urine Ketones Urine Blood Urine Nitrite Urine Bilirubin Urine Urobilinogen (Auto) Ur Leukocyte Esterase Urine RBC Urine WBC Ur Squamous Epith Cells Urine Bacteria Hyaline Casts Ur Culture Indicated? Acetaminophen 11/29/24 11/29/24 11/29/24 04:19 04:47 06:50 WBC 25.3 H D RBC 4.07 Hgb 12.0 Hct 34.0 L D MCV 84 MCH 29.5 MCHC 35.3 RDW Std Deviation 39.4 Plt Count 199 D Neut % (Auto) 82 H Lymph % (Auto) 9 L [place] % (Auto) 5 Eos % (Auto) 0 Baso % (Auto) 0 Neut # (Auto) 20.7 H Lymph # (Auto) 2.4 [place] # (Auto) 1.2 H Eos # (Auto) 0.0 Baso # (Auto) 0.1 Immature Gran # (Auto) 0.93 H Absolute Nucleated RBC 0.00 Immature Gran % 4 H Nucleated RBC % 0 Smear Path Review PT INR APTT Fibrinogen D-Dimer Puncture Site Left Radial ABG pH 7.46 H D ABG pCO2 36 D ABG pO2 97 D ABG HCO3 26 ABG O2 Saturation 99 H ABG Base Excess 2 VBG pH VBG pCO2 VBG pO2 VBG O2 Sat (Marcelo) VBG Base Excess FiO2 30 Sodium 145 Potassium 3.5 Chloride 102 Carbon Dioxide 22.7 Anion Gap 20 H BUN 28 H Creatinine 2.4 H Estim Creat Clear Calc 34.5 L eGFR 27 L BUN/Creatinine Ratio 12 Glucose 419 H* D Estimated Ave Glu mg/dL 298 H Hemoglobin A1c 12.0 H Calculated Osmolality 312 H Lactic Acid 2.8 H 3.8 H Calcium 8.1 L Corrected Calcium 9.0 Phosphorus 2.5 Magnesium 3.2 H Total Bilirubin 0.3 AST > 1000 H* ALT 665 H* Alkaline Phosphatase 84 Total Protein 4.7 L Albumin 2.9 L Globulin 1.8 L Albumin/Globulin Ratio 1.6 Lipase Beta-Hydroxybutyrate/Acetoacetate TSH Free T4 HCG, Qual Ur Collection Type Urine Color Urine Clarity Urine pH Ur Specific [place] Urine Protein Urine Glucose (UA) Urine Ketones Urine Blood Urine Nitrite Urine Bilirubin Urine Urobilinogen (Auto) Ur Leukocyte Esterase Urine RBC Urine WBC Ur Squamous Epith Cells Urine Bacteria Hyaline Casts Ur Culture Indicated? Acetaminophen < 2.0 L 11/29/24 11/29/24 07:46 09:27 WBC RBC Hgb Hct MCV MCH MCHC RDW Std Deviation Plt Count Neut % (Auto) Lymph % (Auto) [place] % (Auto) Eos % (Auto) Baso % (Auto) Neut # (Auto) Lymph # (Auto) [place] # (Auto) Eos # (Auto) Baso # (Auto) Immature Gran # (Auto) Absolute Nucleated RBC Immature Gran % Nucleated RBC % Smear Path Review PT 11.3 INR 1.1 APTT 21.3 L Fibrinogen 256 D-Dimer 875 H Puncture Site ABG pH ABG pCO2 ABG pO2 ABG HCO3 ABG O2 Saturation ABG Base Excess VBG pH VBG pCO2 VBG pO2 VBG O2 Sat (Marcelo) VBG Base Excess FiO2 Sodium Potassium Chloride Carbon Dioxide Anion Gap BUN Creatinine Estim Creat Clear Calc eGFR BUN/Creatinine Ratio Glucose Estimated Ave Glu mg/dL Hemoglobin A1c Calculated Osmolality Lactic Acid 1.7 Calcium Corrected Calcium Phosphorus Magnesium Total Bilirubin AST ALT Alkaline Phosphatase Total Protein Albumin Globulin Albumin/Globulin Ratio Lipase Beta-Hydroxybutyrate/Acetoacetate TSH Free T4 HCG, Qual Ur Collection Type Urine Color Urine Clarity Urine pH Ur Specific [place] Urine Protein Urine Glucose (UA) Urine Ketones Urine Blood Urine Nitrite Urine Bilirubin Urine Urobilinogen (Auto) Ur Leukocyte Esterase Urine RBC Urine WBC Ur Squamous Epith Cells Urine Bacteria Hyaline Casts Ur Culture Indicated? 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 hypoxic brain injury- sedation has been on hold for a few hours with no change in mentation. check a HCT CV s/p cardiac arrest-ROSC achieved after 20 minutes and initial rhythm was noted to be PEA. Patient arrested in the setting of severe acidosis as well as hyperkalemia which are both likely underlying etiologies for her arrest. Shock- pt received several liters of IV fluids in the ER however remained hypotensive. She was started on bolus epinephrine and Levophed for her blood pressure. This morning she is off of both catecholamines and her blood pressure has stabilized. Shock is likely in the setting of postarrest as well as severe acidosis and vasodilation. Bedside echo showed adequate LV contractility. No hemodynamics are documented from overnight. Resp Acute hypoxic/hypercapneic resp failure- currently intubated and on MV, fu on ABG and CXR, adjust vent as needed Renal LEONA- likely prerenal - avoid nephrotoxins - monitor i/os AGMA- pts original ABG shows both a respiratory acidosis as well as a metabolic acidosis. AG is 2/2 both DKA and LA - improving GI GI proph- PPI Ischemic hepatitis- 2/2 code blue and down time, pt does have a h/o drug use therefore will also check a viral hep panel Endo DKA- on IVF and DKA protocol, labs q4hrs, insulin gtt, - has improving AG - once AG closed x2 transition to subq insulin with lantus - part of her AG on admit is from LA as well however most recent draw is back to baseline Heme Leukocytosis- reactive v 2/2 underlying UTI DVT proph- lovenox ID ? UTI- urine in [place] has a lot of sediment and appears turbid. currently on abx and will await cx ? Bacteremia- 1/2 bottles with GPC, currently on abx, may be contaminant, cont abx till cx resulted out case d/w ICU team labs, imaging, records reviewed ~ 46ccmin required for eval, exam, review, intervention, discussion and formulation of POC for this critically ill pt s/p cardiac arrest Provider Notation Provider Notation: Although this document has been carefully reviewed, there may still be some phonetic and other typographical errors. These errors are purely grammatical due to imperfections in the software program and should not be construed in any way to compromise the substance of the patient's medical care during this visit. Thank you for the opportunity and privilege in assisting you with this patient's care and management.
[2024-11-29 12:28] LABS: Allen Test Performed/OK; Base Excess 6 (-3-3); HCO3 29 mEq/L (20-26); Inspired Oxygen, FIO2 50 %; O2 Saturation 97 % (91-98); PCO2 32 mmHg (32.0-48.0); PO2 74 mmHg (83-108); Puncture Site Right Radial; pH, Arterial 7.56 (7.35-7.45)
[2024-11-29 12:29] LABS: Base Excess, Venous 6 (-3-3); O2 Saturation, Venous 95 % (96-97); PCO2, Venous 29 mmHg (36-56); PO2, Venous 63 mmHg (15-58); pH, Venous 7.59 (7.33-7.66)
[2024-11-29 12:30] LABS: Lactic Acid, 3 HR 1.4 mMol/L (0.4-2.0)
[2024-11-29 13:00] LABS: Anion Gap 15 (7-16); BUN/Creatinine Ratio 18 Ratio (12-20); Blood Urea Nitrogen 33 mg/dL (9-23); Calcium 8.3 mg/dL (8.3-10.6); Carbon Dioxide 26.9 mMol/L (20.0-31.0); Chloride 107 mMol/L (98-107); Creatinine (Component) 1.8 mg/dL (0.6-1.3); Estimated Creatinine Clearance 46.1 mL/min (>60); Glucose 141 mg/dL (74-106); Osmolality,Calculated 305 (275-295); Phosphorous 2.4 mg/dL (2.4-5.1); Potassium 3.4 mMol/L (3.4-5.1); Sodium 149 mMol/L (136-145); eGFR 38 See Note
--- NOTE | 2024-11-29 13:06 | ESPR_ITS ---
<Statement entered by Damian Tubbs MD - 11/29/24 20:55> This patient is a 29-year-old female with past medical history of poorly controlled type 1 diabetes noncompliant with medication, multiple admissions for DKA, polysubstance use, hypothyroidism presented to the ED on 11/28/2024 with chief complaint of DKA per ED documentation. She ran out of her long-acting insulin. Patient was having Kussmaul breathing. Patient eventually had a cardiac arrest with unresponsiveness with PEA and CODE BLUE was called. She had a downtime of 19 minutes with ROSC achieved postcardiac resuscitation. IV access was initially obtained followed by successful placement of central line. Patient received epinephrine, sodium bicarbonate and was intubated. Initial vitals revealed hypotension, tachycardia, tachypnea and mild fever. Blood glucose was 1258. Phosphorus 18.8. BUN and creatinine elevated. Creatinine at 3.6. Patient is admitted to ICU for DKA with insulin drip and postcardiac arrest with acute hypoxic respiratory failure post intubation and mechanical ventilation and infection, UTI initially requiring pressors. Overnight, patient remained on vasopressin and bicarb drip. In the morning, patient was weaned off pressors including Levophed and epinephrine. Propofol and fentanyl was turned off to evaluate neurological status. Patient had a GCS of 5T. Urine output is more than 3 L. Patient has anion gap metabolic acidosis with noncompensated respiratory acidosis which eventually subsequently changed to respiratory alkalosis as patient has been on insulin drip and received bicarb overnight. We have been managing the ventilator settings. Anion gap has reopened again. Patient received additional bolus of fluid and following DKA protocol. Pending on head CT to evaluate neurological ischemic injury. Family was informed regarding patient's current condition and point of contact his mother who will be coming to see the patient today. Will continue with the Vanco and Rocephin until we get the final blood and urine culture results. Patient also developed ischemic hepatitis which has been uptrending likely due to cardiac arrest. avoiding hepatotoxic agents and continue IV Protonix for GI prophylaxis. Lovenox for DVT prophylaxis. Family came at the bedside in the evening and plan to change the CODE STATUS to DNR/DNI. Head CT without con showed infarction in MCA distribution and both occipital lobes. Will likely perform goals of care discussion with the family tomorrow and discuss CT results in the presence of polisher balance screwhead. I discussed and supervised with the international marketing manager physician who took care of this patient. I personally saw and examined the patient. I agree with most of the assessment and plan. Disclaimer: Despite multiple revisions, due to the dictation software being used, the document bellow may not be free of grammatical errors including phonetic/typographic errors. However, this does not deter from our commitment to providing health care in the patient's best interest in mind. Plan of care discussed with attending Physician Dr. Zachariah Tubbs MD PGY-3 Documentation for date of: 11/29/24 Subjective Subjective Interval history: 29-year-old female with a history of poorly controlled type 1 diabetes mellitus, multiple prior admissions for DKA, polysubstance use, hypothyroidism (methamphetamine and cocaine) presented to the ED on 11/28/2024 with complaints of feeling like she was ?in DKA? (per ED documentation). She had not taken Lantus for the past 3 days due to running out, though she continued using NovoLog. She also endorsed recent cocaine use. ED Course: -Initial vitals were: BP 110/82, HR 128, RR 24, T 100F, O2 saturation 98% on room air (FiO2 60%). -Labs significant for: only lab results available at the time was CBC which was remarkable for WBC 36.8, neutrophil predominant. Urine analysis showed rare bacteria, 4+ glucose and 3+ ketones. Urine toxicology positive for methamphetamine and cocaine. -Imaging included: none -In the ED, patient was given: 3L of LR. At 1905, the patient became unresponsive and a code blue was called. She was found to be in cardiac arrest. ACLS was initiated, including chest compressions, epinephrine, sodium bicarbonate, and intubation by the ED attending. ROSC was achieved at 1925. IO access was initially obtained, followed by successful placement of a central line. Post-ROSC labs: Electrolytes: Na 131 (L), K 7.4 (H), Cl 86 (L), HCO3 <10 (L), Anion gap 35 (H). Renal: BUN 47 (H), Cr 3.6 (H), eGFR 17 (L). Glucose: 1258 (H). Other: Ca 8.0 (L), Phos 18.8 (H), Mg 3.6 (H), AST >1000 (H), ALT 483 (H), Albumin 3.3 (L), beta-hydroxybutyrate >6.4 (H). She was found to be severely acidotic and started on bicarbonate drip. She was also hypotensive and started on vasopressors (Levophed and epinephrine). Insulin drip was initiated empirically for diabetic ketoacidosis. Due to ED physician's concern for unsterilized procedure marrufo in acute setting, patient was empirically started on Vancomycin and Zosyn. Patient was admitted to the ICU for continued resuscitation and management. Interval History: 11/29/2024: Overnight, patient remained on vasopressors and bicarbonate drip overnight and was weaned off around 6AM this morning. Propofol and fentanyl have been held to allow for assessment of her underlying neurological status. She is currently afebrile with adequate urine output (~3.3L over the past 24 hours). Exam Vital Signs Temp Pulse Resp BP Pulse Ox O2 Del Method O2 Flow Rate 99.1 F 97 26 H 135/85 H 100 Mechanical Ventilation 5 11/29/24 12:00 11/29/24 13:00 11/29/24 12:00 11/29/24 13:00 11/29/24 13:00 11/29/24 12:00 11/28/24 18:50 FiO2 30 11/29/24 12:00 Narrative Exam Physical Exam General: Intubated, sedated. GCS 5T. Head: Normocephalic, atraumatic. Eyes: Pupils are constricted and not reactive to light bilaterally. Left eye slightly deviated medially. Anicteric. Mouth/Throat: ET tube and OG tube in place. Heart: Regular rate and rhythm, no murmurs. No JVD. Lungs: Clear to auscultation with no wheezing or crackles. Non-labored respirations, symmetric chest rise, no use of accessory muscles. Abdomen: Soft and non-distended. Left femoral central line in place. Johnston in place. Extremities: No edema. Posterior tibial pulses are 2+ bilaterally. 2+ radial pulse bilaterally. No clubbing or cyanosis. No mottling. Soft restraints on bilateral wrists. Extension to pain of right upper extremity. No response on left upper extremity. Skin: No rash. Tattoos. Objective Labs 11/30/24 05:05 11/30/24 05:05 Labs: Laboratory Results - last 24 hr 11/28/24 11/28/24 11/28/24 16:01 17:42 19:20 WBC 36.8 H* RBC 4.58 Hgb 13.3 Hct 44.1 MCV 96 MCH 29.0 MCHC 30.2 L RDW Std Deviation 50.2 H Plt Count 336 D Neut % (Auto) 82 H Lymph % (Auto) 6 L Miller % (Auto) 8 Eos % (Auto) 0 Baso % (Auto) 1 Neut # (Auto) 30.1 H Lymph # (Auto) 2.3 Miller # (Auto) 3.0 H Eos # (Auto) 0.0 Baso # (Auto) 0.2 Immature Gran # (Auto) 1.11 H Absolute Nucleated RBC 0.00 Immature Gran % 3 H Nucleated RBC % 0 Smear Path Review Sent to Pathologist PT 11.5 INR 1.1 APTT Fibrinogen D-Dimer Puncture Site ABG pH ABG pCO2 ABG pO2 ABG HCO3 ABG O2 Saturation ABG Base Excess VBG pH 6.77 L VBG pCO2 35 L VBG pO2 149 H VBG O2 Sat (Marcelo) 97 VBG Base Excess -29 L FiO2 Sodium 131 L Potassium 7.4 H* Chloride 86 L Carbon Dioxide < 10.0 L* Anion Gap 35 H BUN 47 H Creatinine 3.6 H Estim Creat Clear Calc 22.4 L eGFR 17 L BUN/Creatinine Ratio 13 Glucose 1258 H* Estimated Ave Glu mg/dL Hemoglobin A1c Calculated Osmolality 338 H Lactic Acid Calcium 8.0 L Corrected Calcium 8.6 Phosphorus 18.8 H Magnesium 3.6 H Total Bilirubin 0.3 AST > 1000 H* ALT 483 H Alkaline Phosphatase 97 Total Protein 5.0 L Albumin 3.3 L Globulin 1.7 L Albumin/Globulin Ratio 1.9 Lipase 15 Beta-Hydroxybutyrate/Acetoacetate > 6.4 H TSH Free T4 HCG, Qual Negative Cancelled Ur Collection Type Urine Color Urine Clarity Urine pH Ur Specific Breaks Urine Protein Urine Glucose (UA) Urine Ketones Urine Blood Urine Nitrite Urine Bilirubin Urine Urobilinogen (Auto) Ur Leukocyte Esterase Urine RBC Urine WBC Ur Squamous Epith Cells Urine Bacteria Hyaline Casts Ur Culture Indicated? Acetaminophen 11/28/24 11/28/24 11/28/24 19:35 19:52 21:00 WBC RBC Hgb Hct MCV MCH MCHC RDW Std Deviation Plt Count Neut % (Auto) Lymph % (Auto) Miller % (Auto) Eos % (Auto) Baso % (Auto) Neut # (Auto) Lymph # (Auto) Miller # (Auto) Eos # (Auto) Baso # (Auto) Immature Gran # (Auto) Absolute Nucleated RBC Immature Gran % Nucleated RBC % Smear Path Review PT INR APTT Fibrinogen D-Dimer Puncture Site Left Radial Left Radial ABG pH 6.89 L* 7.02 L* D ABG pCO2 20 L 19 L* ABG pO2 300 H 261 H D ABG HCO3 4 L* 5 L* ABG O2 Saturation 99 H 100 H ABG Base Excess -28 L -25 L VBG pH VBG pCO2 VBG pO2 VBG O2 Sat (Marcelo) VBG Base Excess FiO2 60 60 Sodium Potassium Chloride Carbon Dioxide Anion Gap BUN Creatinine Estim Creat Clear Calc eGFR BUN/Creatinine Ratio Glucose Estimated Ave Glu mg/dL Hemoglobin A1c Calculated Osmolality Lactic Acid Calcium Corrected Calcium Phosphorus Magnesium Total Bilirubin AST ALT Alkaline Phosphatase Total Protein Albumin Globulin Albumin/Globulin Ratio Lipase Beta-Hydroxybutyrate/Acetoacetate TSH Free T4 HCG, Qual Ur Collection Type Clean Catch Urine Color Lt-Yellow Urine Clarity Clear Urine pH 5.5 Ur Specific Breaks 1.021 Urine Protein 1+ A Urine Glucose (UA) 4+ A Urine Ketones 2+ A Urine Blood 1+ A Urine Nitrite Negative Urine Bilirubin Negative Urine Urobilinogen (Auto) Negative Ur Leukocyte Esterase Positive Urine RBC 8 H Urine WBC 17 H Ur Squamous Epith Cells 5 Urine Bacteria Rare Hyaline Casts < 1 Ur Culture Indicated? Yes Acetaminophen 11/28/24 11/29/24 11/29/24 22:26 01:28 02:31 WBC RBC Hgb Hct MCV MCH MCHC RDW Std Deviation Plt Count Neut % (Auto) Lymph % (Auto) Miller % (Auto) Eos % (Auto) Baso % (Auto) Neut # (Auto) Lymph # (Auto) Miller # (Auto) Eos # (Auto) Baso # (Auto) Immature Gran # (Auto) Absolute Nucleated RBC Immature Gran % Nucleated RBC % Smear Path Review PT INR APTT Fibrinogen D-Dimer Puncture Site Right Radial ABG pH 7.36 D ABG pCO2 23 L ABG pO2 132 H D ABG HCO3 13 L ABG O2 Saturation 99 H ABG Base Excess -10 L VBG pH VBG pCO2 VBG pO2 VBG O2 Sat (Marcelo) VBG Base Excess FiO2 35 Sodium 137 144 Potassium 4.7 D 3.6 D Chloride 91 L 100 Carbon Dioxide < 10.0 L* 19.8 L Anion Gap 36 H 24 H BUN 58 H 48 H Creatinine 3.5 H 2.7 H D Estim Creat Clear Calc 23.0 L 30.7 L eGFR 17 L 23 L BUN/Creatinine Ratio 17 18 Glucose 987 H* D 624 H* D Estimated Ave Glu mg/dL Hemoglobin A1c Calculated Osmolality 339 H 328 H Lactic Acid 10.0 H* 3.4 H 2.7 H Calcium 8.5 7.9 L Corrected Calcium 8.9 8.6 Phosphorus 10.1 H 3.1 Magnesium 3.4 H Total Bilirubin AST ALT Alkaline Phosphatase Total Protein Albumin 3.5 3.1 L Globulin Albumin/Globulin Ratio Lipase Beta-Hydroxybutyrate/Acetoacetate TSH 7.10 H Free T4 1.03 HCG, Qual Ur Collection Type Urine Color Urine Clarity Urine pH Ur Specific Breaks Urine Protein Urine Glucose (UA) Urine Ketones Urine Blood Urine Nitrite Urine Bilirubin Urine Urobilinogen (Auto) Ur Leukocyte Esterase Urine RBC Urine WBC Ur Squamous Epith Cells Urine Bacteria Hyaline Casts Ur Culture Indicated? Acetaminophen 11/29/24 11/29/24 11/29/24 04:19 04:47 06:50 WBC 25.3 H D RBC 4.07 Hgb 12.0 Hct 34.0 L D MCV 84 MCH 29.5 MCHC 35.3 RDW Std Deviation 39.4 Plt Count 199 D Neut % (Auto) 82 H Lymph % (Auto) 9 L Miller % (Auto) 5 Eos % (Auto) 0 Baso % (Auto) 0 Neut # (Auto) 20.7 H Lymph # (Auto) 2.4 Miller # (Auto) 1.2 H Eos # (Auto) 0.0 Baso # (Auto) 0.1 Immature Gran # (Auto) 0.93 H Absolute Nucleated RBC 0.00 Immature Gran % 4 H Nucleated RBC % 0 Smear Path Review PT INR APTT Fibrinogen D-Dimer Puncture Site Left Radial ABG pH 7.46 H D ABG pCO2 36 D ABG pO2 97 D ABG HCO3 26 ABG O2 Saturation 99 H ABG Base Excess 2 VBG pH VBG pCO2 VBG pO2 VBG O2 Sat (Amrcelo) VBG Base Excess FiO2 30 Sodium 145 Potassium 3.5 Chloride 102 Carbon Dioxide 22.7 Anion Gap 20 H BUN 28 H Creatinine 2.4 H Estim Creat Clear Calc 34.5 L eGFR 27 L BUN/Creatinine Ratio 12 Glucose 419 H* D Estimated Ave Glu mg/dL 298 H Hemoglobin A1c 12.0 H Calculated Osmolality 312 H Lactic Acid 2.8 H 3.8 H Calcium 8.1 L Corrected Calcium 9.0 Phosphorus 2.5 Magnesium 3.2 H Total Bilirubin 0.3 AST > 1000 H* ALT 665 H* Alkaline Phosphatase 84 Total Protein 4.7 L Albumin 2.9 L Globulin 1.8 L Albumin/Globulin Ratio 1.6 Lipase Beta-Hydroxybutyrate/Acetoacetate TSH Free T4 HCG, Qual Ur Collection Type Urine Color Urine Clarity Urine pH Ur Specific Breaks Urine Protein Urine Glucose (UA) Urine Ketones Urine Blood Urine Nitrite Urine Bilirubin Urine Urobilinogen (Auto) Ur Leukocyte Esterase Urine RBC Urine WBC Ur Squamous Epith Cells Urine Bacteria Hyaline Casts Ur Culture Indicated? Acetaminophen < 2.0 L 11/29/24 11/29/24 11/29/24 07:46 09:27 12:14 WBC RBC Hgb Hct MCV MCH MCHC RDW Std Deviation Plt Count Neut % (Auto) Lymph % (Auto) Miller % (Auto) Eos % (Auto) Baso % (Auto) Neut # (Auto) Lymph # (Auto) Miller # (Auto) Eos # (Auto) Baso # (Auto) Immature Gran # (Auto) Absolute Nucleated RBC Immature Gran % Nucleated RBC % Smear Path Review PT 11.3 INR 1.1 APTT 21.3 L Fibrinogen 256 D-Dimer 875 H Puncture Site Right Radial ABG pH 7.56 H D ABG pCO2 32 ABG pO2 74 L D ABG HCO3 29 H ABG O2 Saturation 97 ABG Base Excess 6 H VBG pH VBG pCO2 VBG pO2 VBG O2 Sat (Marcelo) VBG Base Excess FiO2 50 Sodium Potassium Chloride Carbon Dioxide Anion Gap BUN Creatinine Estim Creat Clear Calc eGFR BUN/Creatinine Ratio Glucose Estimated Ave Glu mg/dL Hemoglobin A1c Calculated Osmolality Lactic Acid 1.7 Calcium Corrected Calcium Phosphorus Magnesium Total Bilirubin AST ALT Alkaline Phosphatase Total Protein Albumin Globulin Albumin/Globulin Ratio Lipase Beta-Hydroxybutyrate/Acetoacetate TSH Free T4 HCG, Qual Ur Collection Type Urine Color Urine Clarity Urine pH Ur Specific Breaks Urine Protein Urine Glucose (UA) Urine Ketones Urine Blood Urine Nitrite Urine Bilirubin Urine Urobilinogen (Auto) Ur Leukocyte Esterase Urine RBC Urine WBC Ur Squamous Epith Cells Urine Bacteria Hyaline Casts Ur Culture Indicated? Acetaminophen 11/29/24 12:21 WBC RBC Hgb Hct MCV MCH MCHC RDW Std Deviation Plt Count Neut % (Auto) Lymph % (Auto) Miller % (Auto) Eos % (Auto) Baso % (Auto) Neut # (Auto) Lymph # (Auto) Miller # (Auto) Eos # (Auto) Baso # (Auto) Immature Gran # (Auto) Absolute Nucleated RBC Immature Gran % Nucleated RBC % Smear Path Review PT INR APTT Fibrinogen D-Dimer Puncture Site ABG pH ABG pCO2 ABG pO2 ABG HCO3 ABG O2 Saturation ABG Base Excess VBG pH 7.59 VBG pCO2 29 L VBG pO2 63 H D VBG O2 Sat (Marcelo) 95 L VBG Base Excess 6 H FiO2 Sodium 149 H Potassium 3.4 Chloride 107 Carbon Dioxide 26.9 Anion Gap 15 BUN 33 H Creatinine 1.8 H D Estim Creat Clear Calc 46.1 L eGFR 38 L BUN/Creatinine Ratio 18 Glucose [address] Glu mg/dL Hemoglobin A1c Calculated Osmolality 305 H Lactic Acid 1.4 Calcium 8.3 Corrected Calcium Phosphorus 2.4 Magnesium Total Bilirubin AST ALT Alkaline Phosphatase Total Protein Albumin Globulin Albumin/Globulin Ratio Lipase Beta-Hydroxybutyrate/Acetoacetate TSH Free T4 HCG, Qual Ur Collection Type Urine Color Urine Clarity Urine pH Ur Specific Breaks Urine Protein Urine Glucose (UA) Urine Ketones Urine Blood Urine Nitrite Urine Bilirubin Urine Urobilinogen (Auto) Ur Leukocyte Esterase Urine RBC Urine WBC Ur Squamous Epith Cells Urine Bacteria Hyaline Casts Ur Culture Indicated? Acetaminophen ABG Interpretation ABG results: 11/28/24 11/28/24 11/28/24 19:20 19:52 21:00 ABG pH 6.89 L* 7.02 L* D ABG pCO2 20 L 19 L* ABG pO2 300 H 261 H D ABG HCO3 4 L* 5 L* ABG O2 Saturation 99 H 100 H ABG Base Excess -28 L -25 L VBG pH 6.77 L VBG pCO2 35 L VBG pO2 149 H VBG Base Excess -29 L 11/29/24 11/29/24 11/29/24 01:28 04:19 12:14 ABG pH 7.36 D 7.46 H D 7.56 H D ABG pCO2 23 L 36 D 32 ABG pO2 132 H D 97 D 74 L D ABG HCO3 13 L 26 29 H ABG O2 Saturation 99 H 99 H 97 ABG Base Excess -10 L 2 6 H VBG pH VBG pCO2 VBG pO2 VBG Base Excess 11/29/24 12:21 ABG pH ABG pCO2 ABG pO2 ABG HCO3 ABG O2 Saturation ABG Base Excess VBG pH 7.59 VBG pCO2 29 L VBG pO2 63 H D VBG Base Excess 6 H Quality Measures Quality Measures none Assessment & Plan Assessment Current Active Medications: Generic Name Dose Route Start Last Admin Trade Name Freq PRN Reason Stop Dose Admin Calcium Gluconate 1 gm 11/28/24 19:25 Calcium Gluconate 10% Inj 1 Gm/10 Ml Vial IV PRN PRN SEE DOSE INSTRUCTIONS Dextrose 25 ml 11/28/24 20:05 Dextrose 50%-Water Inj 50 Ml Syringe IV [id number] PRN Blood Sugar - Low Enoxaparin Sodium 30 mg 11/29/24 07:00 11/29/24 07:44 Enoxaparin Sod Inj 30 Mg/0.3 Ml Syringe SC 12/13/24 06:59 30 mg QDAY TRUDI Administration Insulin Human Regular 100 unit in 100 mls @ 7.439 mls/hr 11/28/24 19:56 11/29/24 08:00 Myxredlin IV 12/28/24 19:55 0.1 unit/kg/hr .[id number] PRN 7.439 mls/hr PER PROTOCOL Titration Protocol 0.1 UNIT/KG/HR Potassium Chloride 10 meq in 100 mls @ 100 mls/hr 11/28/24 20:05 Kcl Ivpb IV 12/28/24 20:04 .Q1H PRN IF POTASSIUM LESS THAN 3.3 Magnesium Sulfate 2 gm in 50 mls @ 25 mls/hr 11/28/24 20:05 11/29/24 06:45 Magnesium Sulfate Ivpb IV 12/28/24 20:04 Infused .Q2H PRN Infusion PER DKA PROTOCOL Dextrose/Lactated Ringer's 1,000 mls @ 250 mls/hr 11/28/24 20:05 D5-Lr IV 12/28/24 20:04 .Q4H PRN PER PROTOCOL Lactated Ringer's 1,000 mls @ 250 mls/hr 11/28/24 20:05 11/29/24 06:45 Lactated Ringers IV 11/29/24 20:04 Infused .Q4H PRN Infusion PER PROTOCOL Potassium Chloride 20 meq/ 1,010 mls @ 250 mls/hr 11/28/24 20:05 11/29/24 10:00 Lactated Ringer's IV 12/28/24 20:04 0 mls/hr .Q4H3M PRN Infusion K LEVEL 3.3 TO 5.3mM/L Potassium Chloride 40 meq/ 1,020 mls @ 250 mls/hr 11/28/24 20:05 Lactated Ringer's IV 12/28/24 20:04 .Q4H5M PRN K LEVEL < 3.3 mM/L Potassium Chloride 40 meq/ 1,020 mls @ 250 mls/hr 11/28/24 20:05 Dextrose/Lactated Ringer's IV 12/28/24 20:04 .Q4H5M PRN K LEVEL < 3.3mM/L Potassium Chloride 10 meq in 100 mls @ 50 mls/hr 11/28/24 20:05 11/29/24 06:45 Kcl Ivpb IV 12/28/24 20:04 Infused PRN PRN Infusion K LEVEL 3.3 to 5.3 & BG > 200 Potassium Phosphate 15 mmol in 250 mls @ 62.5 mls/hr 11/28/24 20:05 Pot Phos 15 Mmol In Ns 250 Ml IV 12/28/24 20:04 PRN PRN Phosphate <= 1mg/dL Sodium Phosphate 15 mmol/ 255 mls @ 62.5 mls/hr 11/28/24 20:05 Sodium Chloride IV 12/28/24 20:04 .Q4H5M PRN Phosphate <= 1mg/dL and K> than 5.3 Propofol 1,000 mg in 100 mls @ 2.232 mls/hr 11/28/24 20:32 11/29/24 07:38 Diprivan Ivpb IV 12/28/24 20:31 0 mcg/kg/min .Q24H PRN 0 mls/hr PER PROTOCOL Titration Protocol 5 MCG/KG/MIN Midazolam HCl 100 mg in 100 mls @ 1 mls/hr 11/28/24 20:34 11/29/24 04:30 Versed Pf Inj In Ns Premix IV 12/03/24 19:33 0 mg/hr .Q24H PRN 0 mls/hr PER PROTOCOL Titration Protocol 1 MG/HR Epinephrine/Sodium Chloride 4 mg in 250 mls @ 13.948 mls/hr 11/28/24 20:57 11/29/24 01:52 Adrenalin/Ns 4 Mg Ivpb IV 12/28/24 20:56 0 mcg/kg/min .[id number] PRN 0 mls/hr per protocol Titration Protocol 0.05 MCG/KG/MIN Ceftriaxone Sodium/Dextrose 1 gm in 50 mls @ 100 mls/hr 11/29/24 09:00 11/29/24 09:34 Rocephin/D5w 1gm Iv Premix IV 12/06/24 08:59 Infused QDAY TRUDI Infusion Fentanyl Citrate 2,500 mcg in 250 mls @ 2.5 mls/hr 11/28/24 22:18 11/29/24 07:38 Sublimaze Inj 2,500 Mcg/250 Ml Bag IV 12/03/24 22:17 0 mcg/hr .Q24H PRN 0 mls/hr PER PROTOCOL Titration Protocol 25 MCG/HR Potassium Chloride 20 meq/ 1,010 mls @ 250 mls/hr 11/29/24 10:06 11/29/24 10:42 Dextrose/Lactated Ringer's IV 12/29/24 10:05 250 mls/hr .Q4H3M PRN Administration K LEVEL 3.3 TO 5.3 mM/L Levothyroxine Sodium 68 mcg 11/28/24 22:25 11/29/24 09:04 Levothyroxine Inj 100 Mcg Vial IV 12/28/24 22:24 68 mcg DAILY TRUDI Administration Ondansetron HCl 4 mg 11/28/24 20:00 Ondansetron Inj 2 Mg/Ml Inj 2 Ml IVP 12/28/24 19:59 Q6H PRN NAUSEA OR VOMITING Protocol Pharmacy Consult 1 each 11/29/24 09:00 11/29/24 10:48 Pharmacy Renal Dose Adjustment 1 Ea XX 12/29/24 08:59 Not Given QDAY TRUDI Sodium Bicarbonate 50 ml 11/28/24 20:05 Sodium Bicarb Inj 8.4% Syr 50 Ml Syringe IV 12/28/24 20:04 Q4HR PRN For ph <= to 7.0 Sodium Chloride 5 ml 11/28/24 19:36 Sodium Chloride Rt 10% 15 Ml Nebu INH 12/28/24 19:35 X1 PRN SPUTUM CLEARANCE Plan 29-year-old female with poorly controlled type 1 diabetes, hypothyroidism, and polysubstance use admitted to ICU for DKA complicated by cardiac arrest, now post-ROSC. Neurology #Acute encephalopathy #Query anoxic brain injury DDx: Metabolic due to diabetic ketoacidosis vs substance intoxication vs severe hyperglycemia vs metabolic acidosis vs hypovolemia. Diagnostic Test: - GCS 5T (no eye opening +1, intubated +1, extension to pain of right extremity +2, both pupils unreactive to light -2). - Urine toxicology positive for methamphetamine and cocaine. Patient initially endorsed use as well. - Initial UA: rare bacteria, 4+ glucose and 3+ ketones. - Initial blood glucose: 1258. - Initial ABG: pH 6.89, pCO2 20, pO2 300, HCO3 4. - Initial BUN 57 and Cr 3.6. Treatment Plan: - Propofol and fentanyl has been held for a few hours with no change in mentation. - CT head pending. Cardiovascular #S/p cardiac arrest - ROSC in 20 minutes #Shock likely mixed hypvolemic and distributive Likely etiologies include severe acidosis, hyperkalemia, and vasodilation. Code blue start 1904, ROSC at 1925. Patient received 2 rounds of Epinephrine during code blue. Initial rhythm noted to be PEA. Diagnostic Test: - EKG post ROSC showed sinus tachycardia. - Initial potassium level 7.4. - Initial ABG: pH 6.89, pCO2 20, pO2 300, HCO3 4. - Bedside echo showed adequate LV contractility. Treatment Plan: - Maintain electrolytes in optimized range. - Follow-up with lactic acid. Treatment Review: - Patient received several liters of IV fluids in the ER and remained hypotensive. She was started on bolus epinephrine and Levophed , which were discontinued this morning and her blood pressure has remained stable. Respiratory #Acute hypoxic/hypercapneic respiratory failure #Intubated and mechanically ventilated for airway protection Diagnostic Test: - CXR: No aspiration pneumonia or pulmonary edema. - ABGs: 11/28 19:52: pH 6.89/pCO2 20/pO2 300/HCO3 4 11/28 21:00: pH 7.02/pCO2 19/pO2 261/HCO3 5 11/28 01:28: pH 7.36/pCO2 23/pO2 132/HCO3 13 11/28 04:19: pH 7.46/pCO2 36/pO2 97/HCO3 26 11/29 12:21: pH 7.56/pCO2 32/pO2 74/HCO3 29 - Patient's GCS is 5T Treatment Plan: - Continue mechanical ventilation. - Adjust ventilation as needed. - Follow-up ABG. GI and F/E/N #Transaminitis Likely secondary to ischemic hepatitis DDx: decreased perfusion, severe dehydration, hypotension, metabolic acidosis from DKA and cardiac arrest. Diagnostic Test: - AST > 1000 (significant elevation, supports hepatic injury). - ALT 665. - Acetaminophen < 2.0 (ruled out toxicity). Treatment Plan: - Monitor liver function with regular repeat LFTs. - Adequate volume resuscitation and correction of acidosis. - Viral hepatitis panel pending since patient has history of drug use. #Stress ulcer prophylaxis - Continue IV Protonix. Renal #Mixed acid-base disorder #Anion gap metabolic acidosis with non-compensatory respiratory acidosis #Respiratory alkalosis Diagnostic Test: - 11/28 19:52: Initial ABG: pH 6.89/pCO2 20/pO2 300/HCO3 4. Interpretation: metabolic acidosis with anion gap of 35. Using Winter's Formula (with HCO3 from CMP): Predicted pCO2 range = 21-25. The observed pCO2 of 20 is not compensatory, suggesting anion gap metabolic acidosis with non-compensatory respiratory acidosis. - Subsequent ABG (11/28 20:15): pH 7.02/pCO2 19/pO2 261/HCO3 5. Interpretation: falsely low pCO2 likely due to Kussmaul breathing. The patient's respiratory effort (deep, labored breathing) likely underestimates pCO2 and actual value is expected to be higher. - Trends in ABGs: over the following hours, the patient developed respiratory alkalosis, likely induced by insulin and bicarbonate, which can lower CO2. The ventilatory settings were adjusted to help counteract this alkalosis. RR was reduced from 22 to 15 bpm to allow CO2 retention and avoid excessive alkalosis. - Most recent ABG: pH 7.48/pCO2 40/pO2 112/HCO3 30. Treatment Plan: - pCO2 remains low despite ventilator adjustments, acetazolamide 500 mg x1 and LR given. #Mixed-type lactic acidosis, in the setting of DKA Likely multifactorial. DDx: type A from hypoperfusion/hypoxia related to hypovolemia due to DKA- associated osmotic diuresis and cardiac arrest, type B from hepatic dysfunction, stimulant/toxin use. Diagnostic test: - ABGs - metabolic acidosis with elevated anion gap and lactate. - Urine toxicology positive for methamphetamine and cocaine. - LFTs: AST > 1000, ALT 665, consistent with possible ischemic hepatitis. Treatment Plan: - Continue IV fluid hydration per DKA protocol. - Continue IV insulin infusion, titrated to close anion gap. - Monitor serial lactate levels to ensure downtrend. - Monitor LFTs. - Monitor renal function and urine output. - Blood cultures pending. #Acute kidney injury Likely prerenal secondary to dehydration and cardiac arrest. Diagnostic Test: - Baseline Cr 1.1. - Admission Cr 3.6 Treatment Plan: - Avoid nephrotoxins. - Renally dose medications like anticoagulants and antibiotics. - Monitor I&Os. Heme #Leukocytosis DDx: reactive vs secondary to UTI Diagnostic Test: - WBC 36.8 --> 25.3 - Patient remains afebrile. Treatment Plan: -Monitor CBC and trend WBCs. Endo #Insulin-dependent diabetes mellitus type 1 #Diabetic ketoacidosis Secondary to noncompliance with diabetes medication. Diagnostic Test: - Beta hydroxybutyrate > 6.4 , blood glucose 1258, anion gap 35. - Refer to above for ABG results. Treatment Plan: - Continue insulin ggt per DKA protocol. - Replete electrolytes as needed. - Monitor and continue to close anion gap. - Once the anion gap has closed twice then can transition to subcutaneous insulin and lantus. #History of hypothyroidism Diagnostic Test: - TSH 7.10, Free T4 1.03 - On Levothyroxine 88 mcg p.o. daily at home. Treatment Plan: - Started IV Levothyroxine 68mcg. Transition to PO as mentation improves. ID #Urinary tract infection #Query bacteremia Diagnostic Test: - Urine in the johnston has a lot of sediment and appears turbid. - Repeat UA positive for leukocyte esterase and WBCs. - 1/2 bottles with GPC, may be contaminant, pending complete culture results. - CBC WBC 36.8 --> 25.3 Treatment Plan: - Continue Rocephin 1g daily (11/29 - - Follow-up blood and urine cultures. Treatment Review: - Vancomycin PTD x1 given. - Ceftriaxone 2 g IV x1 loading dose. Health maintenance: Disposition: Admit to ICU for DKA management DVT prophylaxis: Enoxaparin 30mg SC daily (renally dosed) GI prophylaxis: Protonix 40mg QD Diet: NPO Johnston: present Central line: right internal jugular vein Drips: Propofol, Fentanyl, Insulin, IV fluids Vent: AC/VC mode Code status: FULL CODE Patient discussed with my senior resident Dr. Tubbs and attending, Dr. Soni. Landry Nielsen DO, PGY 1
--- NOTE | 2024-11-29 14:37 | PC.SS ---
STEAM TABLE WORKER attempted phone contact with patient's listed surrogate medical decision maker, Jere Schreiber [phone]. No response STEAM TABLE WORKER left message requesting return call.
--- NOTE | 2024-11-29 15:08 | PC.SS ---
COMBATANT SWIMMER informed by ICU resident request to contact patient's listed surrogate medical decision maker. COMBATANT SWIMMER informed resident that phone contact has been attempted with no response. COMBATANT SWIMMER conducted chart review located phone number to patient's sister Barbara Bernard, . COMBATANT SWIMMER fielded phone call to number. Patient's mother, Lori Amador; answered phone. Informed COMBATANT SWIMMER that contact number is also her number. COMBATANT SWIMMER inquired about patient's listed surrogate medical decision maker. COMBATANT SWIMMER informed that Jere might be incarcerated. 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 COMBATANT SWIMMER transferred pateint's mother to ICU resident.
--- NOTE | 2024-11-29 15:21 | PC.SS ---
HEARING IMPAIRED TEACHER completed phone contact with patient?s mother, Lori Amador; to complete initial assessment.? Patient on mechanical ventilator.? Patient is currently homeless.? 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 Patient possesses a history of substance abuse.? Toxicology report positive for methamphetamine and cocaine.? Patient does not utilize DME to assist with ambulation.? Patient does not utilize home oxygen.? Patient describes the ability to complete ADL?s independently.? Mother informed HEARING IMPAIRED TEACHER willingness to be surrogate medical decision maker for the patient due to significant other, Jere Schreiber; no longer in relationship with the patient.? Patient?s mother confirmed that patient possesses a history of diabetes, insulin dependent.? Patient?s mother reports that patient is non-compliant with medication.? oil well services dispatcher will discuss discharge needs at an appropriate future time.? No further intervention required at this time, hospital social worker will be available to address any further concerns.? Next of Kin: Lori Aquinocedo D/C Plan: Pending
--- NOTE | 2024-11-29 15:24 | PC.SS ---
Patient's mother, Lori Amador; [phone].
[2024-11-29 16:13] LABS: Base Excess 6 (-3-3); HCO3 30 mEq/L (20-26); Inspired Oxygen, FIO2 30 %; O2 Saturation 99 % (91-98); PCO2 40 mmHg (32.0-48.0); PO2 112 mmHg (83-108); pH, Arterial 7.48 (7.35-7.45)
[2024-11-29 16:28] LABS: Allen Test Performed/OK; Puncture Site Right Radial
[2024-11-29 17:04] LABS: Aspartate Amino Transferase 1883 U/L (0-34)
[2024-11-29] MEDS: RINGERS LACTATED 1000 ML 1,000 ML 999 ML IV (17:16)
[2024-11-29 17:25] LABS: Anion Gap 12 (7-16); BUN/Creatinine Ratio 16 Ratio (12-20); Blood Urea Nitrogen 29 mg/dL (9-23); Calcium 8.0 mg/dL (8.3-10.6); Carbon Dioxide 29.2 mMol/L (20.0-31.0); Chloride 110 mMol/L (98-107); Creatinine (Component) 1.8 mg/dL (0.6-1.3); Estimated Creatinine Clearance 46.1 mL/min (>60); Glucose 142 mg/dL (74-106); Osmolality,Calculated 307 (275-295); Phosphorous 2.7 mg/dL (2.4-5.1); Potassium 3.4 mMol/L (3.4-5.1); Sodium 151 mMol/L (136-145); eGFR 38 See Note
--- NOTE | 2024-11-29 17:44 | XR_ITS ---
Examination: CT brain head without contrast. 2-D sagittal coronal reconstructions Date and time of exam:November 29, 2024, 1807 hrs. Indications: Status post cardiopulmonary arrest, hypoxic respiratory failure CTDI: vol (mGy):52.2 DLP: (mGycm):1073 Technique: Multiple CT axial sections of the brain have been obtained, 5 mm slice thickness. Contrast has not been administered. 2-D sagittal, coronal reconstructions have been obtained Low dose protocols were performed. One or more of the following dose reduction techniques were used; automated exposure control, adjustment of the mA and/or KV according to patient size, use of iterative reconstruction technique. Findings: Extensive low density areas in distribution of the left middle cerebral artery Extensive low density in both occipital lobes consistent with large areas of ischemia/hypoxia Ventricles are not enlarged There is mild mass effect upon the left frontal horn No acute hemorrhage either intra or extra-axial is depicted Cranial vault is intact Impression: Extensive areas of early infarction in left middle cerebral artery distribution and both occipital lobes
[2024-11-29] MEDS: ACETAzolaMIDE SOD 500 MG in SODIUM CHLORIDE 0.9% 50 ML 100 MG IV (19:10)
[2024-11-29] MEDS: INSULIN DEGLUDEC 5 UNIT/0.05 ML (PER 5 UNITS) 20 UNIT SC (19:43)
--- NOTE | 2024-11-29 19:49 | PD.RESEVENT ---
Documentation for date of: 11/29/24 Event Note Event Note: Was able to speak with patient's mother, who explained that patient's previous point contact has not been involved in patient's life for 2 years. Mother was designated primary point of contact. Patient's family including mother, father, sister presented at bedside and engaged with conversation regarding patient's hospital course. Hospital course, including diagnosis of DKA, hospital treatments, and cardiac arrest with downtime of 19 minutes or explained to family. Discussion regarding next steps of treatment and diagnosis, prognosis was engaged. Patient's mother expressed understanding. Patient's mother expressed desire to allow for a peaceful transitions to the patient go into cardiac arrest again. Understanding of what this would mean was confirmed, and patient CODE STATUS was changed to DNR. Kwame Solano MD PGY?2
[2024-11-29 21:25] LABS: Anion Gap 10 (7-16); BUN/Creatinine Ratio 14 Ratio (12-20); Blood Urea Nitrogen 23 mg/dL (9-23); Calcium 8.0 mg/dL (8.3-10.6); Carbon Dioxide 30.5 mMol/L (20.0-31.0); Chloride 112 mMol/L (98-107); Creatinine (Component) 1.6 mg/dL (0.6-1.3); Estimated Creatinine Clearance 51.8 mL/min (>60); Glucose 157 mg/dL (74-106); Osmolality,Calculated 308 (275-295); Phosphorous 2.1 mg/dL (2.4-5.1); Potassium 3.3 mMol/L (3.4-5.1); Sodium 152 mMol/L (136-145); eGFR 44 See Note
--- NOTE | 2024-11-29 21:27 | PD.RESEVENT ---
Documentation for date of: 11/29/24 Event Note Event Note: Call received from Mother : Lucila ) around 21:00 Per family, they were told by Dr Skelton to follow up for results with the night team. Patient's mother was informed that day ICU team along with the porcelain enamel installer will have a family meeting tomorrow 11/30/2024 to go over all the results with her. She is welcome to come to the hospital anytime between 9am-1pm. Mother expressed understanding and will be present for a meeting tomorrow with ICU day team. - Zaid Soto M.D. PGY3 Disclaimer: Minor errors in pit furnace melter may be present as this note was dictated using voice recognition software.
--- NOTE | 2024-11-29 21:34 | PC.RT ---
Assisted in transportation to [place], no complications during transport. Patient returned to previous vent settings upon return.
[2024-11-30] VITALS (34 sets, daily range): BP systolic 137–197; BP diastolic 82–116; PULSE 61–124; RESP 10–24; TEMP 37.1–37.5; O2SAT 95–100; BMI 31.7
--- NOTE | 2024-11-30 | XR_ITS ---
Examination: MRI brain without intravenous contrast. Date and time of exam: November 30, 2024, 1811 hours INDICATIONS: Diabetic ketoacidosis, onset cardiopulmonary arrest, altered mental status post arrest Technique: Multiple axial and sagittal images of the brain obtained. Siemens high-resolution 1.5 Shanda short bore scanners utilized. Sagittal sections, T1-weighted, TR 500, TE 14, are performed. Axial sections proton-density and T2-weighted have been obtained. Inversion recovery axial images, TR 9, 260, TE 111, TI 2500. Diffusion weighted images, axial sections, TR 4800, TE 128, B value 1000 Axial sections, ADC map, TR 4800, TE 128 Findings: Enlargement of the sella turcica is not present. The optic chiasm and infundibular are not remarkable. Prepontine and interpeduncular cisterns are not enlarged. There is no localized enlargement of the medulla or wilver. Fourth ventricle and cerebellar tonsils appear normal in position. No subacute area of hemorrhage density is seen. Mass in the cerebellopontine angle region is not evident. Globes symmetrical. Orbital musculature including medial lateral rectus muscles do not exhibit abnormality. Diffusion-weighted images demonstrate marked symmetrical foci increased restrictive diffusion in the basal ganglia, temporal parietal and occipital cortex, caudate nuclei consistent with massive anoxic change. Increased white matter signal prominent Mass effect upon the ventricular system is not identified. Impression: Massive diffuse brain anoxic/ischemic change
[2024-11-30 04:52] LABS: Base Excess 1 (-3-3); HCO3 24 mEq/L (20-26); Inspired Oxygen, FIO2 30 %; O2 Saturation 98 % (91-98); PCO2 35 mmHg (32.0-48.0); PO2 131 mmHg (83-108); pH, Arterial 7.45 (7.35-7.45)
[2024-11-30 04:55] LABS: Allen Test Performed/OK; Puncture Site Left Radial
[2024-11-30] MEDS: INSULIN LISPRO (AdmeLOG) 1 UNIT/0.01 ML UNIT SC ×5 (05:14→23:49)
[2024-11-30 06:11] LABS: Basophils # (Auto) 0.1 Thou/mm3 (0.0-0.2); Basophils % (Auto) 0 % (0-2.5); Eosinophils # (Auto) 0.0 Thou/mm3 (0.0-0.5); Eosinophils % (Auto) 0 % (0-10); Hematocrit 32.1 % (36.0-46.0); Hemoglobin 10.9 g/dL (12.0-16.0); Immature Granulocytes Auto 0.28 Thou/mm3 (0.00-0.00); Lymphocytes # (Auto) 1.0 Thou/mm3 (1.0-4.8); Lymphocytes % (Auto) 4 % (10-50); Mean Corpuscular HGB Conc 34.0 g/dl (31.0-37.0); Mean Corpuscular Hemoglobin 29.2 pg (25.0-35.0); Mean Corpuscular Volume 86 fL (80-100); Monocytes # (Auto) 1.1 Thou/mm3 (0.0-0.8); Monocytes % (Auto) 5 % (0-12); Neutrophils # (Auto) 19.8 Thou/mm3 (1.8-7.7); Neutrophils % (Auto) 89 % (37-80); Nucleated Red Blood Cell # 0.00 Thou/mm3 (0.00-0.00); Nucleated Red Blood Cell % 0 /100 WBC (0); Platelet Count 162 Thou/mm3 (140-440); RDW Standard Deviation 43.8 fL (36.4-46.3); Red Blood Count 3.73 Miln/mm3 (4.00-5.20); White Blood Count 22.2 Thou/mm3 (3.6-11.0)
[2024-11-30 06:37] LABS: Alanine Aminotransferase 842 U/L (10-49); Albumin, Serum 3.2 gm/dL (3.5-5.0); Albumin/Globulin Ratio 1.6 (1.2-2.2); Alkaline Phosphatase 95 U/L (46-116); Anion Gap 16 (7-16); BUN/Creatinine Ratio 16 Ratio (12-20); Bilirubin,Total 0.4 mg/dL (0.3-1.2); Blood Urea Nitrogen 25 mg/dL (9-23); Calcium 8.4 mg/dL (8.3-10.6); Calcium (Corrected) 9.0 mg/dL (8.5-10.1); Carbon Dioxide 25.0 mMol/L (20.0-31.0); Chloride 109 mMol/L (98-107); Creatinine (Component) 1.6 mg/dL (0.6-1.3); Estimated Creatinine Clearance 51.8 mL/min (>60); Globulin 2.0 gm/dL (2.3-3.5); Glucose 341 mg/dL (74-106); Osmolality,Calculated 315 (275-295); Potassium 3.4 mMol/L (3.4-5.1); Sodium 150 mMol/L (136-145); Total Protein 5.2 gm/dL (5.7-8.2); eGFR 44 See Note
[2024-11-30 06:50] LABS: Aspartate Amino Transferase 1344 U/L (0-34)
[2024-11-30] MEDS: cefTRIAXone/D5w 1gm IV premix 1 GM/50 ML BAG IV (08:05)
[2024-11-30] MEDS: POT PHOS 15 mMol in NS 250 ML 15 MMOL/250 ML BAG 62.5 MMOL IV ×3 (08:05→23:46)
[2024-11-30] MEDS: ENOXAPARIN SOD INJ 30 MG/0.3 ML SYRINGE SC (08:06)
[2024-11-30] MEDS: INSULIN DEGLUDEC 5 UNIT/0.05 ML (PER 5 UNITS) 25 UNIT SC (08:08)
[2024-11-30 08:46] LABS: Phosphorous 2.2 mg/dL (2.4-5.1)
[2024-11-30 09:48] LABS: Hepatitis A Antibody IgM Non Reactive (Non React); Hepatitis B Core Antibody IgM Non Reactive (Non React); Hepatitis B Surface Antigen Non Reactive (Non React); Hepatitis C Antibody Non Reactive (Non React)
[2024-11-30] MEDS: Vancomycin Inj 1,500 MG in SODIUM CHLORIDE 0.9% 500 ML 500 ML 200 MG IV (10:15)
--- NOTE | 2024-11-30 10:44 | PC.SS ---
ASSEMBLER TRACTOR fielded phone call from patient's [facility] transitional care benefits case management unit. ASSEMBLER TRACTOR informed that patient is eligible for case management services upon discharge. Focus of case management to assist the patient with obtaining community resources. Contact number for [facility] case management: [phone]. [facility] requesting that patient follow up upon discharge.
--- NOTE | 2024-11-30 10:54 | PC.NURSE ---
Donor Network contacted for referral. [facility]# [phone]. Donor network to be given update after family meeting today.
--- NOTE | 2024-11-30 10:58 | ESPR_ITS ---
<Statement entered by Damian Tubbs MD - 11/30/24 13:10> Patient was seen and examined at the site in ICU. No acute overnight events were reported. CT brain showed massive infarction in MCA distribution involving bilateral occipital lobes. 2/2 blood cultures showed GPC. Vancomycin was added. Insulin was increased to 25 units of degludec daily along with sliding scale and Q6 hourly insulin. Patient had a urine output of 100 cc/h. Goals of care discussion was performed by burning machine operator in the presence of RN and resident physicians with the family members including patient's parents and sister. They were informed regarding patient's current neurological status and anoxic brain injury in detail.They were explained that anoxic brain injury leads to permanent neuron damage especially in the areas where brain is involved. They were given options if they wish for her to stay alive. Considering anoxic brain injury, she will need to be connected with the ventilator after tracheostomy and PEG tube placement in a nursing facility or if they would like to proceed with comfort care to let her pass peacefully. At this point family has not taken any decision. All their questions were addressed and concerns were answered. Neurology has been consulted so that family can have discussion regarding patient's neurological status. I discussed and supervised with the risk intern physician who took care of this patient. I personally saw and examined the patient. I agree with most of the assessment and plan. Disclaimer: Despite multiple revisions, due to the dictation software being used, the document bellow may not be free of grammatical errors including phonetic/typographic errors. However, this does not deter from our commitment to providing health care in the patient's best interest in mind. Plan of care discussed with attending Physician Dr.Madrid Damian Tubbs MD PGY-3 Documentation for date of: 11/30/24 Subjective Subjective Interval history: 29-year-old female with a history of poorly controlled type 1 diabetes mellitus, multiple prior admissions for DKA, polysubstance use, hypothyroidism (methamphetamine and cocaine) presented to the ED on 11/28/2024 with complaints of feeling like she was ?in DKA? (per ED documentation). She had not taken Lantus for the past 3 days due to running out, though she continued using NovoLog. She also endorsed recent cocaine use. ED Course: -Initial vitals were: BP 110/82, HR 128, RR 24, T 100F, O2 saturation 98% on room air (FiO2 60%). -Labs significant for: only lab results available at the time was CBC which was remarkable for WBC 36.8, neutrophil predominant. Urine analysis showed rare bacteria, 4+ glucose and 3+ ketones. Urine toxicology positive for methamphetamine and cocaine. -Imaging included: none -In the ED, patient was given: 3L of LR. At 1905, the patient became unresponsive and a code blue was called. She was found to be in cardiac arrest. ACLS was initiated, including chest compressions, epinephrine, sodium bicarbonate, and intubation by the ED attending. ROSC was achieved at 1925. IO access was initially obtained, followed by successful placement of a central line. Post-ROSC labs: Electrolytes: Na 131 (L), K 7.4 (H), Cl 86 (L), HCO3 <10 (L), Anion gap 35 (H). Renal: BUN 47 (H), Cr 3.6 (H), eGFR 17 (L). Glucose: 1258 (H). Other: Ca 8.0 (L), Phos 18.8 (H), Mg 3.6 (H), AST >1000 (H), ALT 483 (H), Albumin 3.3 (L), beta-hydroxybutyrate >6.4 (H). She was found to be severely acidotic and started on bicarbonate drip. She was also hypotensive and started on vasopressors (Levophed and epinephrine). Insulin drip was initiated empirically for diabetic ketoacidosis. Due to ED physician's concern for unsterilized procedure marrufo in acute setting, patient was empirically started on Vancomycin and Zosyn. Patient was admitted to the ICU for continued resuscitation and management. Interval History: 11/30/2024: Overnight, the patient was transitioned to subcutaneous insulin, with IV insulin discontinued approximately one hour later. Tube feeds were initiated at a rate of 25 mL/hr. The patient's blood glucose levels have ranged from 157 to 341 mg/dL. The patient was initially started on 20 units of insulin degludec, along with a sliding scale insulin. In response to blood glucose fluctuations, the insulin degludec dose was increased to 25 units to improve control. The patient's urine output was 900 mL over the past 24 hours, averaging 100 mL/hr. A head CT performed yesterday revealed extensive infarction in the left middle cerebral artery distribution and both occipital lobes. These findings were discussed with the patient's family during their visit around 11:00 AM. In addition, Dr. Cherry was consulted to provide a more detailed explanation of the extent of the brain damage following the patient's cardiac arrest to family. 11/29/2024: Overnight, patient remained on vasopressors and bicarbonate drip overnight and was weaned off around 6AM this morning. Propofol and fentanyl have been held to allow for assessment of her underlying neurological status. She is currently afebrile with adequate urine output (~3.3L over the past 24 hours). Exam Vital Signs Temp Pulse Resp BP Pulse Ox O2 Del Method O2 Flow Rate 99.1 F 81 16 157/109 H 100 Mechanical Ventilation 5 11/30/24 08:00 11/30/24 10:00 11/30/24 08:00 11/30/24 10:00 11/30/24 10:00 11/30/24 08:00 11/28/24 18:50 FiO2 30 11/30/24 08:00 Narrative Exam Physical Exam General: Intubated. GCS 6T. Head: Normocephalic, atraumatic. Eyes: Pupils are equal and reactive to light. Anicteric. Mouth/Throat: ET tube and OG tube in place. Heart: Regular rate and rhythm, no murmurs. No JVD. Internal jugular vein central line present. Lungs: Clear to auscultation with no wheezing or crackles. Non-labored respirations, symmetric chest rise, no use of accessory muscles. Abdomen: Soft and non-distended. Johnston in place. Extremities: No edema in lower extremities. Mild swelling of bilateral hands. Posterior tibial pulses are 2+ bilaterally. 2+ radial pulse bilaterally. No clubbing or cyanosis. No mottling. Soft restraints on bilateral wrists. Neuro: Decerebrate posturing of bilateral upper extremities. Plantar flexion in lower extremities. Skin: No rash. Tattoos. Objective Labs 11/30/24 05:05 11/30/24 05:05 Labs: Laboratory Results - last 24 hr 11/29/24 11/29/24 11/29/24 04:47 12:14 12:21 WBC RBC Hgb Hct MCV MCH MCHC RDW Std Deviation Plt Count Neut % (Auto) Lymph % (Auto) [place] % (Auto) Eos % (Auto) Baso % (Auto) Neut # (Auto) Lymph # (Auto) [place] # (Auto) Eos # (Auto) Baso # (Auto) Immature Gran # (Auto) Absolute Nucleated RBC Immature Gran % Nucleated RBC % Puncture Site Right Radial ABG pH 7.56 H D ABG pCO2 32 ABG pO2 74 L D ABG HCO3 29 H ABG O2 Saturation 97 ABG Base Excess 6 H VBG pH 7.59 VBG pCO2 29 L VBG pO2 63 H D VBG O2 Sat (Marcelo) 95 L VBG Base Excess 6 H FiO2 50 Sodium 149 H Potassium 3.4 Chloride 107 Carbon Dioxide 26.9 Anion Gap 15 BUN 33 H Creatinine 1.8 H D Estim Creat Clear Calc 46.1 L eGFR 38 L BUN/Creatinine Ratio 18 Glucose 141 H D Calculated Osmolality 305 H Lactic Acid 1.4 Calcium 8.3 Corrected Calcium Phosphorus 2.4 Total Bilirubin AST 1883 H* ALT Alkaline Phosphatase Total Protein Albumin Globulin Albumin/Globulin Ratio Hepatitis A IgM Ab Hep Bs Antigen Hep B Core IgM Ab Hepatitis C Antibody 11/29/24 11/29/24 11/29/24 16:06 16:46 20:43 WBC RBC Hgb Hct MCV MCH MCHC RDW Std Deviation Plt Count Neut % (Auto) Lymph % (Auto) [place] % (Auto) Eos % (Auto) Baso % (Auto) Neut # (Auto) Lymph # (Auto) [place] # (Auto) Eos # (Auto) Baso # (Auto) Immature Gran # (Auto) Absolute Nucleated RBC Immature Gran % Nucleated RBC % Puncture Site Right Radial ABG pH 7.48 H ABG pCO2 40 ABG pO2 112 H D ABG HCO3 30 H ABG O2 Saturation 99 H ABG Base Excess 6 H VBG pH VBG pCO2 VBG pO2 VBG O2 Sat (Marcelo) VBG Base Excess FiO2 30 Sodium 151 H 152 H Potassium 3.4 3.3 L Chloride 110 H 112 H Carbon Dioxide 29.2 30.5 Anion Gap 12 10 BUN 29 H 23 Creatinine 1.8 H 1.6 H Estim Creat Clear Calc 46.1 L 51.8 L eGFR 38 L 44 L BUN/Creatinine Ratio 16 14 Glucose 142 H 157 H Calculated Osmolality 307 H 308 H Lactic Acid Calcium 8.0 L 8.0 L Corrected Calcium Phosphorus 2.7 2.1 L Total Bilirubin AST ALT Alkaline Phosphatase Total Protein Albumin Globulin Albumin/Globulin Ratio Hepatitis A IgM Ab Hep Bs Antigen Hep B Core IgM Ab Hepatitis C Antibody 11/30/24 11/30/24 11/30/24 04:46 05:00 05:05 WBC 22.2 H RBC 3.73 L Hgb 10.9 L Hct 32.1 L MCV 86 MCH 29.2 MCHC 34.0 RDW Std Deviation 43.8 Plt Count 162 D Neut % (Auto) 89 H Lymph % (Auto) 4 L [place] % (Auto) 5 Eos % (Auto) 0 Baso % (Auto) 0 Neut # (Auto) 19.8 H Lymph # (Auto) 1.0 [place] # (Auto) 1.1 H Eos # (Auto) 0.0 Baso # (Auto) 0.1 Immature Gran # (Auto) 0.28 H Absolute Nucleated RBC 0.00 Immature Gran % 1 H Nucleated RBC % 0 Puncture Site Left Radial ABG pH 7.45 ABG pCO2 35 ABG pO2 131 H ABG HCO3 24 ABG O2 Saturation 98 ABG Base Excess 1 VBG pH VBG pCO2 VBG pO2 VBG O2 Sat (Marcelo) VBG Base Excess FiO2 30 Sodium 150 H Potassium 3.4 Chloride 109 H Carbon Dioxide 25.0 Anion Gap 16 BUN 25 H Creatinine 1.6 H Estim Creat Clear Calc 51.8 L eGFR 44 L BUN/Creatinine Ratio 16 Glucose 341 H D Calculated Osmolality 315 H Lactic Acid Calcium 8.4 Corrected Calcium 9.0 Phosphorus 2.2 L Total Bilirubin 0.4 AST 1344 H* ALT 842 H* Alkaline Phosphatase 95 Total Protein 5.2 L Albumin 3.2 L Globulin 2.0 L Albumin/Globulin Ratio 1.6 Hepatitis A IgM Ab Non Reactive Hep Bs Antigen Non Reactive Hep B Core IgM Ab Non Reactive Hepatitis C Antibody Non Reactive ABG Interpretation ABG results: 11/28/24 11/28/24 11/28/24 19:20 19:52 21:00 ABG pH 6.89 L* 7.02 L* D ABG pCO2 20 L 19 L* ABG pO2 300 H 261 H D ABG HCO3 4 L* 5 L* ABG O2 Saturation 99 H 100 H ABG Base Excess -28 L -25 L VBG pH 6.77 L VBG pCO2 35 L VBG pO2 149 H VBG Base Excess -29 L 1011/29/24 11/29/24 01:28 04:19 12:14 ABG pH 7.36 D 7.46 H D 7.56 H D ABG pCO2 23 L 36 D 32 ABG pO2 132 H D 97 D 74 L D ABG HCO3 13 L 26 29 H ABG O2 Saturation 99 H 99 H 97 ABG Base Excess -10 L 2 6 H VBG pH VBG pCO2 VBG pO2 VBG Base Excess 11/29/24 11/29/24 11/30/24 12:21 16:06 04:46 ABG pH 7.48 H 7.45 ABG pCO2 40 35 ABG pO2 112 H D 131 H ABG HCO3 30 H 24 ABG O2 Saturation 99 H 98 ABG Base Excess 6 H 1 VBG pH 7.59 VBG pCO2 29 L VBG pO2 63 H D VBG Base Excess 6 H Quality Measures Quality Measures VTE prophylaxis (lovenox) Assessment & Plan Assessment Current Active Medications: Generic Name Dose Route Start Last Admin Trade Name Freq PRN Reason Stop Dose Admin Calcium Gluconate 1 gm 11/30/24 08:45 Calcium Gluconate 10% Inj 1 Gm/10 Ml Vial IV 12/30/24 19:24 X1 PRN SEE DOSE INSTRUCTIONS Dextrose 25 ml 11/29/24 19:04 Dextrose 50%-Water Inj 50 Ml Syringe IV 12/29/24 19:03 Q15MIN PRN BG 50-70 responsive npo pt Dextrose 50 ml 11/29/24 19:04 Dextrose 50%-Water Inj 50 Ml Syringe IV 12/29/24 19:03 Q15MIN PRN BG <50 OR BG <70 & pt unresponsive Enoxaparin Sodium 30 mg 11/29/24 07:00 11/30/24 08:06 Enoxaparin Sod Inj 30 Mg/0.3 Ml Syringe SC 12/13/24 06:59 30 mg QDAY TRUDI Administration Glucagon 1 mg 11/29/24 19:04 Glucagon Inj 1 Mg Vial IM Q15MIN PRN BG <70, and no IV access Potassium Chloride 10 meq in 100 mls @ 100 mls/hr 11/28/24 20:05 Kcl Ivpb IV 12/28/24 20:04 .Q1H PRN IF POTASSIUM LESS THAN 3.3 Magnesium Sulfate 2 gm in 50 mls @ 25 mls/hr 11/28/24 20:05 11/29/24 06:45 Magnesium Sulfate Ivpb IV 12/28/24 20:04 Infused .Q2H PRN Infusion PER DKA PROTOCOL Dextrose/Lactated Ringer's 1,000 mls @ 250 mls/hr 11/28/24 20:05 D5-Lr IV 12/28/24 20:04 .Q4H PRN PER PROTOCOL Potassium Chloride 20 meq/ 1,010 mls @ 250 mls/hr 11/28/24 20:05 11/29/24 10:00 Lactated Ringer's IV 12/28/24 20:04 0 mls/hr .Q4H3M PRN Infusion K LEVEL 3.3 TO 5.3mM/L Potassium Chloride 40 meq/ 1,020 mls @ 250 mls/hr 11/28/24 20:05 Lactated Ringer's IV 12/28/24 20:04 .Q4H5M PRN K LEVEL < 3.3 mM/L Potassium Chloride 40 meq/ 1,020 mls @ 250 mls/hr 11/28/24 20:05 Dextrose/Lactated Ringer's IV 12/28/24 20:04 .Q4H5M PRN K LEVEL < 3.3mM/L Potassium Chloride 10 meq in 100 mls @ 50 mls/hr 11/28/24 20:05 11/29/24 06:45 Kcl Ivpb IV 12/28/24 20:04 Infused PRN PRN Infusion K LEVEL 3.3 to 5.3 & BG > 200 Potassium Phosphate 15 mmol in 250 mls @ 62.5 mls/hr 11/28/24 20:05 Pot Phos 15 Mmol In Ns 250 Ml IV 12/28/24 20:04 PRN PRN Phosphate <= 1mg/dL Sodium Phosphate 15 mmol/ 255 mls @ 62.5 mls/hr 11/28/24 20:05 Sodium Chloride IV 12/28/24 20:04 .Q4H5M PRN Phosphate <= 1mg/dL and K> than 5.3 Propofol 1,000 mg in 100 mls @ 2.232 mls/hr 11/28/24 20:32 11/29/24 07:38 Diprivan Ivpb IV 12/28/24 20:31 0 mcg/kg/min .Q24H PRN 0 mls/hr PER PROTOCOL Titration Protocol 5 MCG/KG/MIN Midazolam HCl 100 mg in 100 mls @ 1 mls/hr 11/28/24 20:34 11/29/24 04:30 Versed Pf Inj In Ns Premix IV 12/03/24 19:33 0 mg/hr .Q24H PRN 0 mls/hr PER PROTOCOL Titration Protocol 1 MG/HR Ceftriaxone Sodium/Dextrose 1 gm in 50 mls @ 100 mls/hr 11/29/24 09:00 11/30/24 08:35 Rocephin/D5w 1gm Iv Premix IV 12/06/24 08:59 Infused QDAY TRUDI Infusion Potassium Chloride 20 meq/ 1,010 mls @ 250 mls/hr 11/29/24 10:06 11/29/24 20:15 Dextrose/Lactated Ringer's IV 12/29/24 10:05 250 mls/hr .Q4H3M PRN Administration K LEVEL 3.3 TO 5.3 mM/L Potassium Phosphate 15 mmol in 250 mls @ 62.5 mls/hr 11/30/24 07:19 11/30/24 08:05 Pot Phos 15 Mmol In Ns 250 Ml IV 11/30/24 11:18 62.5 mls/hr X1 ONE Administration Vancomycin HCl 1,500 mg/ 500 mls @ 200 mls/hr 11/30/24 10:00 11/30/24 10:15 Sodium Chloride IV 12/07/24 09:59 200 mls/hr Q24H TRUDI Administration Insulin Degludec 25 unit 11/30/24 09:00 11/30/24 08:08 Insulin Degludec 5 Unit/0.05 Ml (Per 5 Units) SC 12/30/24 08:59 25 unit QDAY TRUDI Administration Insulin Human Lispro 0 unit 11/30/24 00:00 11/30/24 05:14 Insulin Lispro (Admelog) 1 Unit/0.01 Ml Unit SC 12/30/24 00:00 5 unit Q6HR TRUDI Administration Protocol Levothyroxine Sodium 68 mcg 11/28/24 22:25 11/30/24 08:05 Levothyroxine Inj 100 Mcg Vial IV 12/28/24 22:24 68 mcg DAILY TRUDI Administration Ondansetron HCl 4 mg 11/28/24 20:00 Ondansetron Inj 2 Mg/Ml Inj 2 Ml IVP 12/28/24 19:59 Q6H PRN NAUSEA OR VOMITING Protocol Pharmacy Consult 1 each 11/29/24 09:00 11/30/24 09:11 Pharmacy Renal Dose Adjustment 1 Ea XX 12/29/24 08:59 Not Given QDAY [facility] Pharmacy Consult 1 each 11/30/24 09:45 Vancomycin Pharmacy To Dose 1 Each Each IV 12/30/24 09:44 QDAY PRN RX Sodium Bicarbonate 50 ml 11/28/24 20:05 Sodium Bicarb Inj 8.4% Syr 50 Ml Syringe IV 12/28/24 20:04 Q4HR PRN For ph <= to 7.0 Sodium Chloride 5 ml 11/28/24 19:36 Sodium Chloride Rt 10% 15 Ml Nebu INH 12/28/24 19:35 X1 PRN SPUTUM CLEARANCE Plan 29-year-old female with poorly controlled type 1 diabetes, hypothyroidism, and polysubstance use admitted to ICU for DKA complicated by cardiac arrest, now post-ROSC. Goals of care Dr. 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 The family was thoroughly informed about the patient's current neurological status and the extent of the anoxic brain injury. The patient?s prognosis and potential next steps were discussed in detail. The following options were presented to the family: Tracheostomy and PEG tube placement for long-term respiratory and nutritional support. [facility] for continued care.Comfort care as an alternative, should the family decide that aggressive interventions would not align with the patient?s values or wishes. The family was provided ample time to ask questions and discuss the information presented. At this time, the family has not yet made a decision regarding the next steps in care.Neurology was consulted to provide a further detailed review and explanation of the patient?s neurological status, ensuring the family had a comprehensive understanding of the patient?s condition and prognosis. Neurology #Acute encephalopathy #Anoxic brain injury DDx: Metabolic due to diabetic ketoacidosis vs substance intoxication vs severe hyperglycemia vs metabolic acidosis vs hypovolemia. Diagnostic Test: - GCS 6T (no eye opening +1, intubated +1, withdrawal from pain +4, both pupils reactive to light). - Urine toxicology positive for methamphetamine and cocaine. Patient initially endorsed use as well. - Initial UA: rare bacteria, 4+ glucose and 3+ ketones. - Initial blood glucose: 1258. - Initial ABG: pH 6.89, pCO2 20, pO2 300, HCO3 4. - Initial BUN 57 and Cr 3.6. - CT head (11/29): Extensive areas of early infarction in left middle cerebral artery distribution and both occipital lobes. - Neurology consulted. Treatment Plan: - Propofol and fentanyl has been held for over 24 hours now with no change in mentation. - Goals of care discussion with family. - MRI head pending. Cardiovascular #S/p cardiac arrest - ROSC in 20 minutes #Shock likely mixed hypvolemic and distributive (resolved) Likely etiologies include severe acidosis, hyperkalemia, and vasodilation. Code blue start 1904, ROSC at 1925. Patient received 2 rounds of Epinephrine during code blue. Initial rhythm noted to be PEA. Diagnostic Test: - EKG post ROSC showed sinus tachycardia. - Initial potassium level 7.4. - Initial ABG: pH 6.89, pCO2 20, pO2 300, HCO3 4. - Bedside echo showed adequate LV contractility. Treatment Plan: - Maintain electrolytes in optimized range. Repleted potassium and phosphate today. Treatment Review: - Patient received several liters of IV fluids in the ER and remained hypotensive. She was started on bolus epinephrine and Levophed , which were discontinued this morning and her blood pressure has remained stable. - Lactic acidosis has resolved with fluids. Respiratory #Acute hypoxic/hypercapneic respiratory failure #Intubated and mechanically ventilated for airway protection Diagnostic Test: - CXR: No aspiration pneumonia or pulmonary edema. - ABGs: 11/28 19:52: pH 6.89/pCO2 20/pO2 300/HCO3 4 11/28 21:00: pH 7.02/pCO2 19/pO2 261/HCO3 5 11/28 01:28: pH 7.36/pCO2 23/pO2 132/HCO3 13 11/28 04:19: pH 7.46/pCO2 36/pO2 97/HCO3 26 11/29 12:21: pH 7.56/pCO2 32/pO2 74/HCO3 29 11/30 04:46: pH 7.45/pCO2 35/pO2 131/HCO3 24 - Patient's GCS is 6T - Gag reflex intact. Treatment Plan: - Continue spontaneous pressure support. MV settings PEEP 5.0, FiO2 30, RR 13, Ppeak 10.4, Pplateau 9.1. VT 503. - Adjust ventilation as needed. - Need GCS > 8 for extubation. GI and F/E/N #Transaminitis Likely secondary to ischemic hepatitis. DDx: decreased perfusion, severe dehydration, hypotension, metabolic acidosis from DKA and cardiac arrest. Diagnostic Test: - AST > 1000 (significant elevation, supports hepatic injury) --> 1883 --> 1344. - ALT 483 --> 665 --> 842. - Acetaminophen < 2.0 (ruled out toxicity). - Hepatitis panel non reactive. Treatment Plan: - Monitor liver function with regular repeat LFTs. - Adequate volume resuscitation and correction of acidosis. - Avoid hepatotoxic. #Stress ulcer prophylaxis - Continue IV Protonix. Renal #Hypernatremia Diagnostic Test: - Sodium level 149 --> 151 --> 152 --> 150. Treatment Plan: - Avoid hypotonic solutions to prevent exacerbating the hypernatremia, particularly given the patient's brain injury, which can increase the risk of cerebral edema. - Continue monitoring sodium levels closely. - Reevaluate the need for hypertonic saline or other specific treatments if sodium levels continue to rise. #Mixed acid-base disorder (resolved) #Anion gap metabolic acidosis with non-compensatory respiratory acidosis (resolved) #Respiratory alkalosis (resolved) Diagnostic Test: - 11/28 19:52: Initial ABG: pH 6.89/pCO2 20/pO2 300/HCO3 4. Interpretation: metabolic acidosis with anion gap of 35. Using Winter's Formula (with HCO3 from CMP): Predicted pCO2 range = 21-25. The observed pCO2 of 20 is not compensatory, suggesting anion gap metabolic acidosis with non-compensatory respiratory acidosis. - Subsequent ABG (11/28 20:15): pH 7.02/pCO2 19/pO2 261/HCO3 5. Interpretation: falsely low pCO2 likely due to Kussmaul breathing. The patient's respiratory effort (deep, labored breathing) likely underestimates pCO2 and actual value is expected to be higher. - Trends in ABGs: over the following hours, the patient developed respiratory alkalosis, likely induced by insulin and bicarbonate, which can lower CO2. The ventilatory settings were adjusted to help counteract this alkalosis. RR was reduced from 22 to 15 bpm to allow CO2 retention and avoid excessive alkalosis. - Most recent AB/7 04:46: pH 7.45/pCO2 35/pO2 131/HCO3 24 Treatment Review: - pCO2 remained low despite ventilator adjustments, acetazolamide 500 mg x1 and LR given. - pH, serum bicarbonate and pCO2 as normalized. - Anion gap has closed twice. #Mixed-type lactic acidosis, in the setting of DKA (resolved) Likely multifactorial. DDx: type A from hypoperfusion/hypoxia related to hypovolemia due to DKA- associated osmotic diuresis and cardiac arrest, type B from hepatic dysfunction, stimulant/toxin use. Diagnostic test: - ABGs - metabolic acidosis with elevated anion gap and lactate. - Urine toxicology positive for methamphetamine and cocaine. - LFTs: AST > 1000, ALT 665, consistent with possible ischemic hepatitis. - Blood cultures: GPC positive. Treatment Plan: - Monitor serial lactate levels to ensure downtrend. - Monitor LFTs. - Monitor renal function and urine output. Treatment Review: - IV fluid hydration per DKA protocol. - IV insulin infusion, titrated to close anion gap. #Acute kidney injury (improving) Likely prerenal secondary to dehydration and cardiac arrest. Diagnostic Test: - Baseline Cr 1.1. - Admission Cr 3.6 --> 3.5 --> 2.7 --> 1.8 --> 1.6. - Urine output: 100cc/hr. Treatment Plan: - Avoid nephrotoxins. - Renally dose medications like anticoagulants and antibiotics. - Monitor I&Os. Heme #Leukocytosis (downtrending) DDx: reactive vs secondary to UTI. Diagnostic Test: - WBC 36.8 --> 25.3 --> 22.2. - Patient remains afebrile. Treatment Plan: -Monitor CBC and trend WBCs. Endo #Insulin-dependent diabetes mellitus type 1 #Diabetic ketoacidosis (resolved) #Hyperglycemia Secondary to noncompliance with diabetes medication. Diagnostic Test: - Beta hydroxybutyrate > 6.4 , blood glucose 1258, anion gap 35. - Refer to above for ABG results. Treatment Plan: - Insulin degludec 20 units was increased to 25 units Q6H for better blood glucose control. - Replete electrolytes as needed. Treatment Review: - Insulin ggt per DKA protocol. - Transitioned to subcutaneous insulin: Insulin degludec 20 units and Insulin sliding scale. - Anion gap has closed twice. #History of hypothyroidism Diagnostic Test: - TSH 7.10, Free T4 1.03 - On Levothyroxine 88 mcg p.o. daily at home. Treatment Plan: - Continue IV Levothyroxine 68mcg. Transition to PO as mentation improves. ID #Urinary tract infection #GPC bacteremia Diagnostic Test: - Urine in the johnston has a lot of sediment and appears turbid. - Repeat UA positive for leukocyte esterase and WBCs. - GPC positive from both bottles. - CBC WBC 36.8 --> 25.3 --> 22.2. Treatment Plan: - Continue Rocephin 1g daily (11/29 -). - Start Vancomyin (11/30-). - Follow-up urine culture. - Follow-up with repeat blood culture to document clearance. Treatment Review: - Vancomycin PTD x1 given. - Ceftriaxone 2 g IV x1 loading dose. Health maintenance: Disposition: Admit to ICU for DKA management DVT prophylaxis: Enoxaparin 30mg SC daily (renally dosed) GI prophylaxis: Protonix 40mg QD Diet: Tube feeds Johnston: present Central line: right internal jugular vein Vent: Spontaneous pressure control Code status: FULL CODE Patient discussed with my senior resident Dr. Tubbs and attending, Dr. Soni. Landry Nielsen DO, PGY 1
--- NOTE | 2024-11-30 11:59 | PD.RESEVENT ---
Documentation for date of: 11/30/24 Event Note: Goals of Care Discussion Date/Time: 11/30/[address]: Patient's Room. People Present: - Family Members: Patient's mother, father, and sister. - Medical Team: Dr. Soni (Attending), Dr. Tubbs (Senior Resident), Dr. Solano (Senior Resident), RN Malgorzata Flannery, Dr. Nielsen (River Expedition Guide). Summary of Discussion: Dr. 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 The family was thoroughly informed about the patient's current neurological status and the extent of the anoxic brain injury. The patient?s prognosis and potential next steps were discussed in detail. The following options were presented to the family: - Tracheostomy and PEG tube placement for long-term respiratory and nutritional support. Senior Living Facility for continued care. - Comfort care as an alternative, should the family decide that aggressive interventions would not align with the patient?s values or wishes. The family was provided ample time to ask questions and discuss the information presented. At this time, the family has not yet made a decision regarding the next steps in care. Neurology was consulted to provide a further detailed review and explanation of the patient?s neurological status, ensuring the family had a comprehensive understanding of the patient?s condition and prognosis. - Landry Nielsen DO, PGY-1
--- NOTE | 2024-11-30 14:18 | PC.DIETICIAN ---
Nutrition prescription Trophic feeds of Vital 1.2 at 25 ml/hr via OG tube by pump. No water flushes. If indicated by MD, advance 10 ml every 8 hrs to goal rate of 45 ml/hr x 24 hrs. If no IV fluids, water flushes of 25 ml/hr (or per MD).
--- NOTE | 2024-11-30 15:03 | PD.INTPROG ---
Documentation for date of: 11/30/24 Subjective Subjective Interval history: This is a 29-year-old female who presents to the ER yesterday for DKA. She underwent an arrest with CPR administered for approximately 20 minutes prior to ROSC. ROSC was established the patient was intubated and a central line was placed. She was given 3 L of fluids in the ER. She was noted to be severely acidotic. She was started on a bicarb. She was hypotensive and started on Levophed and epinephrine. Her vasopressors were weaned off this morning around 6 AM. Her bicarb drip was also stopped. This morning her labs look improved. Her propofol and fentanyl have been placed on hold to assess her underlying neurological status. She is currently afebrile with good urinary output. It is noted that her UTOX is positive for meth and cocaine. 11/30- no acute overnight events, some movement of b/l UE today, good UOP, afebrile Critical Care Note Critical care time (min.): 40 Exam Vital Signs Temp Pulse Resp BP Pulse Ox O2 Del Method O2 Flow Rate 99.2 F 79 17 157/97 H 100 Mechanical Ventilation 5 11/30/24 12:01 11/30/24 13:00 11/30/24 12:01 11/30/24 13:00 11/30/24 13:00 11/30/24 12:01 11/28/24 18:50 FiO2 30 11/30/24 12:01 Narrative Exam Gen- NAD, GCS 6T, nl body habitus HEENT- NC/AT, mucosa hydrated, sclera anicteric, ETT/OGT in place Chest- LCTAB, HRRR, no increase in WOB, good cough and gag Abd- s/nt/bs+ Ext- no mottling, no clubbing, posturing of b/l UE, withdrawal on LE, pulses palp Vent PSV Physical Exam Completion Physical Exam Complete?: Yes Objective - Level Glass Vial Filler Labs 11/30/24 05:05 11/30/24 05:05 Labs: Laboratory Results - last 24 hr 11/29/24 11/29/24 11/29/24 04:47 16:06 16:46 WBC RBC Hgb Hct MCV MCH MCHC RDW Std Deviation Plt Count Neut % (Auto) Lymph % (Auto) Butler % (Auto) Eos % (Auto) Baso % (Auto) Neut # (Auto) Lymph # (Auto) Butler # (Auto) Eos # (Auto) Baso # (Auto) Immature Gran # (Auto) Absolute Nucleated RBC Immature Gran % Nucleated RBC % Puncture Site Right Radial ABG pH 7.48 H ABG pCO2 40 ABG pO2 112 H D ABG HCO3 30 H ABG O2 Saturation 99 H ABG Base Excess 6 H FiO2 30 Sodium 151 H Potassium 3.4 Chloride 110 H Carbon Dioxide 29.2 Anion Gap 12 BUN 29 H Creatinine 1.8 H Estim Creat Clear Calc 46.1 L eGFR 38 L BUN/Creatinine Ratio 16 Glucose 142 H Calculated Osmolality 307 H Calcium 8.0 L Corrected Calcium Phosphorus 2.7 Total Bilirubin AST 1883 H* ALT Alkaline Phosphatase Total Protein Albumin Globulin Albumin/Globulin Ratio Hepatitis A IgM Ab Hep Bs Antigen Hep B Core IgM Ab Hepatitis C Antibody 11/29/24 11/30/24 11/30/24 20:43 04:46 05:00 WBC RBC Hgb Hct MCV MCH MCHC RDW Std Deviation Plt Count Neut % (Auto) Lymph % (Auto) Butler % (Auto) Eos % (Auto) Baso % (Auto) Neut # (Auto) Lymph # (Auto) Butler # (Auto) Eos # (Auto) Baso # (Auto) Immature Gran # (Auto) Absolute Nucleated RBC Immature Gran % Nucleated RBC % Puncture Site Left Radial ABG pH 7.45 ABG pCO2 35 ABG pO2 131 H ABG HCO3 24 ABG O2 Saturation 98 ABG Base Excess 1 FiO2 30 Sodium 152 H Potassium 3.3 L Chloride 112 H Carbon Dioxide 30.5 Anion Gap 10 BUN 23 Creatinine 1.6 H Estim Creat Clear Calc 51.8 L eGFR 44 L BUN/Creatinine Ratio 14 Glucose 157 H Calculated Osmolality 308 H Calcium 8.0 L Corrected Calcium Phosphorus 2.1 L Total Bilirubin AST ALT Alkaline Phosphatase Total Protein Albumin Globulin Albumin/Globulin Ratio Hepatitis A IgM Ab Non Reactive Hep Bs Antigen Non Reactive Hep B Core IgM Ab Non Reactive Hepatitis C Antibody Non Reactive 11/30/24 05:05 WBC 22.2 H RBC 3.73 L Hgb 10.9 L Hct 32.1 L MCV 86 MCH 29.2 MCHC 34.0 RDW Std Deviation 43.8 Plt Count 162 D Neut % (Auto) 89 H Lymph % (Auto) 4 L Butler % (Auto) 5 Eos % (Auto) 0 Baso % (Auto) 0 Neut # (Auto) 19.8 H Lymph # (Auto) 1.0 Butler # (Auto) 1.1 H Eos # (Auto) 0.0 Baso # (Auto) 0.1 Immature Gran # (Auto) 0.28 H Absolute Nucleated RBC 0.00 Immature Gran % 1 H Nucleated RBC % 0 Puncture Site ABG pH ABG pCO2 ABG pO2 ABG HCO3 ABG O2 Saturation ABG Base Excess FiO2 Sodium 150 H Potassium 3.4 Chloride 109 H Carbon Dioxide 25.0 Anion Gap 16 BUN 25 H Creatinine 1.6 H Estim Creat Clear Calc 51.8 L eGFR 44 L BUN/Creatinine Ratio 16 Glucose 341 H D Calculated Osmolality 315 H Calcium 8.4 Corrected Calcium 9.0 Phosphorus 2.2 L Total Bilirubin 0.4 AST 1344 H* ALT 842 H* Alkaline Phosphatase 95 Total Protein 5.2 L Albumin 3.2 L Globulin 2.0 L Albumin/Globulin Ratio 1.6 Hepatitis A IgM Ab Hep Bs Antigen Hep B Core IgM Ab Hepatitis C Antibody Assessment & Plan Additional Assessment Additional Assessment: In summary this is 29-year-old female admitted to the ICU status post arrest 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 Patient arrested in the setting of severe acidosis as well as hyperkalemia which are both likely underlying etiologies for her arrest. Shock- pt received several liters of IV fluids in the ER however remained hypotensive. She was started on bolus epinephrine and Levophed for her blood pressure. This morning she is off of both catecholamines and her blood pressure has stabilized. Shock is likely in the setting of postarrest as well as severe acidosis and vasodilation. Bedside echo showed adequate LV contractility. No hemodynamics are documented from overnight. - resolved Resp Acute hypoxic/hypercapneic resp failure- currently intubated and on MV, fu on ABG and CXR, adjust vent as needed - on PSV however due to GCS unable to cont to ween Renal LEONA- likely prerenal - avoid nephrotoxins - monitor i/os - trending back down today AGMA- pts original ABG shows both a respiratory acidosis as well as a metabolic acidosis. AG is 2/2 both DKA and LA - improving HyperNa- given current brain injury will not correct at this time - avoid hypotonic solutions if possible HypoK- replete PO GI GI proph- PPI Ischemic hepatitis- 2/2 code blue and down time, pt does have a h/o drug use therefore will also check a viral hep panel - trending back down Endo DKA- now resolved - on subq lantus and SSI - FS q6hr Heme Leukocytosis- reactive v 2/2 underlying UTI - trending back down Anemia- poss dilutional given significant IVF that she has received - no obvious bleeding DVT proph- lovenox ID ? UTI- urine in [place] has a lot of sediment and appears turbid. currently on abx and will await cx Bacteremia- 2/2 bottles with GPC, currently on abx, - fu with repeat bcx in AM - awaiting speciation - on Vanc for recent MRSA pos bear case d/w ICU team d/w family at bedside Neurology consulted labs, imaging, records reviewed ~ 40ccmin required for eval, exam, review, intervention, discussion and formulation of POC for this critically ill pt s/p cardiac arrest Provider Notation Provider Notation: Although this document has been carefully reviewed, there may still be some phonetic and other typographical errors. These errors are purely grammatical due to imperfections in the software program and should not be construed in any way to compromise the substance of the patient's medical care during this visit. Thank you for the opportunity and privilege in assisting you with this patient's care and management.
[2024-11-30] MEDS: ACETAMINOPHEN 325 MG TABLET 650 MG NG (15:46)
--- NOTE | 2024-11-30 16:03 | PC.SS ---
Update: Patient remains intubated. Sedation discontinued. No pressor support in place. Patient receiving IV antibiotics. Tube feeding in place. MRI is pending.
[2024-11-30] MEDS: LIDOCAINE HCL 1% 20 ML VIAL INFL (16:47)
[2024-11-30] MEDS: HYDROmorphone INJ 2 MG/ML VIAL 1 MG IVP (18:18)
--- NOTE | 2024-11-30 19:06 | ESCONSULT_ITS ---
HPI Data of Consult Patient: new to practice Consult date: 11/30/24 Requesting Physician: Evelia Soni MD Admitting Provider: Harvey Bedoya MD Attending Provider: Evelia Soni MD Primary Care Provider: Physician No Primary/Family Consult Narrative Reason for consult: Stroke History of present illness: Kiana Main is 29 yr female with PMH of type 1 diabetes, polysubstance use, poor compliance with her diabetes who was admitted to ICU for DKA. Per chart review appears that patient had not been taking insulin for past 3 days. While in the ED underwent cardiac arrest and had downtime approximately 20 minutes. ROSC was achieved and patient was intubated upgraded to ICU for closer monitoring and on insulin drip. Labs reflected hyperkalemia 7.4, UTOX positive for methamphetamine and cocaine. CT head showed MCA infarct in MCA distribution involving bilateral occipital lobes. Also basal ganglia infarct, cerebral edema. Neurology was consulted for further evaluation and management for stroke. Per ICU team, goals of care discussion held with family. Due to hypoxic brain injury and poor prognosis, CODE STATUS was changed to DNR. Family is unsure at this time if they want to pursue comfort care measures or undergo PEG/trach for subacute care. Follow-up with brain MRI and EEG. At bedside on physical exam patient has corneal reflex responses, retracts to pain stimuli. cc:: cc: Evelia Soni MD Review of Systems Review of Systems ROS Unobtainable: unobtainable due to medical condition and due to endotracheal tube Exam Vital Signs Temp Pulse Resp BP Pulse Ox O2 Del Method O2 Flow Rate 99.5 F 98 20 169/90 H 100 Mechanical Ventilation 5 11/30/24 18:00 11/30/24 18:00 11/30/24 16:00 11/30/24 18:00 11/30/24 18:00 11/30/24 16:00 11/28/24 18:50 FiO2 30 11/30/24 16:00 Narrative Exam General: Intubated. GCS 6T. Head: Normocephalic, atraumatic. Eyes: Pupils are equal and reactive to light. Anicteric. Corneal reflex is present. Mouth/Throat: ET tube and OG tube in place. Heart: Regular rate and rhythm, no murmurs. No JVD. Internal jugular vein central line present. Lungs: Clear to auscultation with no wheezing or crackles. Non-labored respirations, symmetric chest rise, no use of accessory muscles. Mechanical breath sounds. Abdomen: Soft and non-distended. Skaggs in place. Extremities: No edema in lower extremities. Mild swelling of bilateral hands. Posterior tibial pulses are 2+ bilaterally. 2+ radial pulse bilaterally. No clubbing or cyanosis. No mottling. Soft restraints on bilateral wrists. Neuro: Decerebrate posturing of bilateral upper extremities. Plantar flexion in lower extremities. Skin: No rash. Tattoos. Results Labs 12/01/24 04:55 12/01/24 04:55 Labs: Short CBC 11/30/24 Range/Units 05:05 WBC 22.2 H (3.6-11.0) Thou/mm3 Hgb 10.9 L (12.0-16.0) g/dL Hct 32.1 L (36.0-46.0) % Plt Count 162 D (140-440) Thou/mm3 BMP 11/29/24 11/30/24 20:43 05:05 Sodium 152 H 150 H Potassium 3.3 L 3.4 Chloride 112 H 109 H Carbon Dioxide 30.5 25.0 BUN 23 25 H Creatinine 1.6 H 1.6 H Glucose 157 H 341 H D Calcium 8.0 L 8.4 Liver Function 11/30/24 Range/Units 05:05 Total Bilirubin 0.4 (0.3-1.2) mg/dL AST 1344 H* (0-34) U/L ALT 842 H* (10-49) U/L Alkaline Phosphatase 95 (46-116) U/L Albumin 3.2 L (3.5-5.0) gm/dL ABG Interpretation ABG results: 11/28/24 11/28/24 11/28/24 19:20 19:52 21:00 ABG pH 6.89 L* 7.02 L* D ABG pCO2 20 L 19 L* ABG pO2 300 H 261 H D ABG HCO3 4 L* 5 L* ABG O2 Saturation 99 H 100 H ABG Base Excess -28 L -25 L VBG pH 6.77 L VBG pCO2 35 L VBG pO2 149 H VBG Base Excess -29 L 11/29/24 11/29/24 11/29/24 01:28 04:19 12:14 ABG pH 7.36 D 7.46 H D 7.56 H D ABG pCO2 23 L 36 D 32 ABG pO2 132 H D 97 D 74 L D ABG HCO3 13 L 26 29 H ABG O2 Saturation 99 H 99 H 97 ABG Base Excess -10 L 2 6 H VBG pH VBG pCO2 VBG pO2 VBG Base Excess 11/29/24 11/29/24 11/30/24 12:21 16:06 04:46 ABG pH 7.48 H 7.45 ABG pCO2 40 35 ABG pO2 112 H D 131 H ABG HCO3 30 H 24 ABG O2 Saturation 99 H 98 ABG Base Excess 6 H 1 VBG pH 7.59 VBG pCO2 29 L VBG pO2 63 H D VBG Base Excess 6 H Quality Measures Quality Measures VTE prophylaxis (lovenox) Medications Home Medications and Allergies Home Medications ?Medication ?Instructions ?Recorded ?Confirmed ?Type buprenorphine 12 mg-naloxone 3 mg buccal 05/11/24 His tory sublingual film Allergies Allergy/AdvReac Type Severity Reaction Status Date / Time codeine Allergy Intermediate Abdominal Verified 11/27/24 15:32 Pain Visit Medications Dextrose (Dextrose 50%-Water Inj 50 Ml Syringe) 25 ml IV Q15MIN PRN PRN Reason: BG 50-70 responsive npo pt Stop: 12/29/24 19:03 Dextrose (Dextrose 50%-Water Inj 50 Ml Syringe) 50 ml IV Q15MIN PRN PRN Reason: BG <50 OR BG <70 & pt unresponsive Stop: 12/29/24 19:03 Enoxaparin Sodium (Enoxaparin Sod Inj 30 Mg/0.3 Ml Syringe) 30 mg SC QDAY TRUDI Stop: 12/13/24 06:59 Last Admin: 11/30/24 08:06 Dose: 30 mg Glucagon (Glucagon Inj 1 Mg Vial) 1 mg IM Q15MIN PRN PRN Reason: BG <70, and no IV access Hydromorphone HCl (Hydromorphone Inj 2 Mg/Ml Vial) 1 mg IVP Q4HR PRN PRN Reason: Pain or agitation Stop: 12/05/24 16:46 Propofol (Diprivan Ivpb) 1,000 mg in 100 mls @ 2.232 mls/hr IV .Q24H PRN; Protocol PRN Reason: PER PROTOCOL Stop: 12/28/24 20:31 Last Titration: 11/29/24 07:38 Dose: 0 mcg/kg/min, 0 mls/hr Midazolam HCl (Versed Pf Inj In Ns Premix) 100 mg in 100 mls @ 1 mls/hr IV .Q24H PRN; Protocol PRN Reason: PER PROTOCOL Stop: 12/03/24 19:33 Last Titration: 11/29/24 04:30 Dose: 0 mg/hr, 0 mls/hr Ceftriaxone Sodium/Dextrose (Rocephin/D5w 1gm Iv Premix) 1 gm in 50 mls @ 100 mls/hr IV QDAY [facility] Stop: 12/06/24 08:59 Last Infusion: 11/30/24 08:35 Dose: Infused Vancomycin HCl 1,500 mg/ (Sodium Chloride) 500 mls @ 200 mls/hr IV Q24H TRUDI Stop: 12/07/24 09:59 Last Admin: 11/30/24 10:15 Dose: 200 mls/hr Magnesium Sulfate (Magnesium Sulfate Ivpb) 2 gm in 50 mls @ 25 mls/hr IV X1 ONE Stop: 11/30/24 20:59 Insulin Degludec (Insulin Degludec 5 Unit/0.05 Ml (Per 5 Units)) 25 unit SC QDAY [facility] Stop: 12/30/24 08:59 Last Admin: 11/30/24 08:08 Dose: 25 unit Insulin Human Lispro (Insulin Lispro (Admelog) 1 Unit/0.01 Ml Unit) 0 unit SC Q6HR [facility]; Protocol Stop: 12/30/24 00:00 Last Admin: 11/30/24 18:04 Dose: 4 unit Levothyroxine Sodium (Levothyroxine Inj 100 Mcg Vial) 68 mcg IV DAILY [facility] Stop: 12/28/24 22:24 Last Admin: 11/30/24 08:05 Dose: 68 mcg Ondansetron HCl (Ondansetron Inj 2 Mg/Ml Inj 2 Ml) 4 mg IVP Q6H PRN; Protocol PRN Reason: NAUSEA OR VOMITING Stop: 12/28/24 19:59 Pharmacy Consult (Pharmacy Renal Dose Adjustment 1 Ea) 1 each XX QDAY [facility] Stop: 12/29/24 08:59 Last Admin: 11/30/24 09:11 Dose: Not Given Pharmacy Consult (Vancomycin Pharmacy To Dose 1 Each Each) 1 each IV QDAY PRN PRN Reason: RX Stop: 12/30/24 09:44 Sodium Chloride (Sodium Chloride Rt 10% 15 Ml Nebu) 5 ml INH X1 PRN PRN Reason: SPUTUM CLEARANCE Stop: 12/28/24 19:35 Discontinued Medications Acetaminophen (Acetaminophen 325 Mg Tablet) 650 mg NG X1 ONE Stop: 11/30/24 15:19 Last Admin: 11/30/24 15:46 Dose: 650 mg Calcium Gluconate (Calcium Gluconate 10% Inj 1 Gm/10 Ml Vial) 2 gm IV X1 ONE Stop: 11/28/24 19:26 Last Admin: 11/28/24 21:44 Dose: 2 gm Calcium Gluconate (Calcium Gluconate 10% Inj 1 Gm/10 Ml Vial) 1 gm IV PRN PRN PRN Reason: SEE DOSE INSTRUCTIONS Calcium Gluconate (Calcium Gluconate 10% Inj 1 Gm/10 Ml Vial) 1 gm IV X1 PRN PRN Reason: SEE DOSE INSTRUCTIONS Stop: 12/30/24 19:24 Dextrose (Dextrose 50%-Water Inj 50 Ml Syringe) 25 ml IV [id number] PRN PRN Reason: Blood Sugar - Low Enoxaparin Sodium (Enoxaparin Sod Inj 40 Mg/0.4 Ml Syringe) 30 mg SC QDAY TRUDI Stop: 12/13/24 08:59 Lactated Ringer's (Lactated Ringers) 1,000 mls @ 999 mls/hr IV .Q1H1M ONE Stop: 11/28/24 15:58 Last Infusion: 11/28/24 20:36 Dose: Infused Lactated Ringer's (Lactated Ringers) 1,000 mls @ 999 mls/hr IV .Q1H1M ONE Stop: 11/28/24 15:58 Last Infusion: 11/28/24 20:36 Dose: Infused Lactated Ringer's (Lactated Ringers) 1,000 mls @ 999 mls/hr IV .Q1H1M ONE Stop: 11/28/24 15:59 Last Infusion: 11/28/24 17:52 Dose: Infused Magnesium Sulfate (Magnesium Sulfate Ivpb) 2 gm in 50 mls @ 25 mls/hr IV X1 ONE Stop: 11/28/24 20:10 Last Infusion: 11/28/24 20:51 Dose: Infused Magnesium Sulfate (Magnesium Sulfate Ivpb) 4 gm in 50 mls @ 12.5 mls/hr IV X1 ONE Stop: 11/28/24 23:25 Last Admin: 11/29/24 03:13 Dose: Not Given Potassium Chloride (Kcl Ivpb) 20 meq in 100 mls @ 50 mls/hr IV Q2H TRUDI Stop: 11/28/24 23:26 Last Admin: 11/28/24 20:37 Dose: Not Given Piperacillin/Tazobactam/Dextrose (Zosyn) 3.375 gm in 50 mls @ 100 mls/hr IV Q6HR ONE; Protocol Stop: 11/28/24 19:58 Last Admin: 11/28/24 23:11 Dose: Not Given Piperacillin/Tazobactam/Dextrose (Zosyn) 3.375 gm in 50 mls @ 100 mls/hr IV X1 ONE; Protocol Stop: 11/28/24 19:59 Last Infusion: 11/28/24 20:52 Dose: Infused Vancomycin/Sodium Chloride (Vancomycin/Ns 1 Gm Ivpb) 200 mls @ 100 mls/hr IV X1 ONE Stop: 11/28/24 22:29 Last Admin: 11/28/24 23:09 Dose: Not Given Epinephrine/Sodium Chloride (Adrenalin/Ns 4 Mg Ivpb) 4 mg in 250 mls @ 13.948 mls/hr IV .[id number] PRN; Protocol PRN Reason: per protocol Stop: 12/28/24 19:31 Midazolam HCl (Versed Pf Inj In Ns Premix) 100 mg in 100 mls @ 1 mls/hr IV .Q24H PRN; Protocol PRN Reason: PER PROTOCOL Stop: 12/03/24 19:33 Last Titration: 11/28/24 20:55 Dose: 4 mg/hr, 4 mls/hr Norepinephrine/Dextrose (Levophed In D5w 8mg/250ml) 8 mg in 250 mls @ 6.974 mls/hr IV .Q24H PRN; Protocol PRN Reason: PER PROTOCOL Stop: 12/28/24 19:40 Last Titration: 11/29/24 06:00 Dose: 0 mcg/kg/min, 0 mls/hr Sodium Bicarbonate 88.23 meq/ (Dextrose) 588.23 mls @ 100 mls/hr IV .Q5H53M TRUDI Stop: 12/28/24 19:50 Last Admin: 11/29/24 02:00 Dose: Not Given Insulin Human Regular (Myxredlin) 100 unit in 100 mls @ 7.439 mls/hr IV .[id number] PRN; Protocol PRN Reason: PER PROTOCOL Stop: 12/28/24 19:55 Last Titration: 11/29/24 20:45 Dose: 0 unit/kg/hr, 0 mls/hr Potassium Chloride (Kcl Ivpb) 10 meq in 100 mls @ 100 mls/hr IV .Q1H PRN PRN Reason: IF POTASSIUM LESS THAN 3.3 Stop: 12/28/24 20:04 Magnesium Sulfate (Magnesium Sulfate Ivpb) 2 gm in 50 mls @ 25 mls/hr IV .Q2H PRN PRN Reason: PER DKA PROTOCOL Stop: 12/28/24 20:04 Last Infusion: 11/29/24 06:45 Dose: Infused Dextrose/Lactated Ringer's (D5-Lr) 1,000 mls @ 250 mls/hr IV .Q4H PRN PRN Reason: PER PROTOCOL Stop: 12/28/24 20:04 Lactated Ringer's (Lactated Ringers) 1,000 mls @ 250 mls/hr IV .Q4H PRN PRN Reason: PER PROTOCOL Stop: 11/29/24 20:04 Last Infusion: 11/29/24 06:45 Dose: Infused Potassium Chloride 20 meq/ (Lactated Ringer's) 1,010 mls @ 250 mls/hr IV .Q4H3M PRN PRN Reason: K LEVEL 3.3 TO 5.3mM/L Stop: 12/28/24 20:04 Last Infusion: 11/29/24 10:00 Dose: 0 mls/hr Potassium Chloride 40 meq/ (Lactated Ringer's) 1,020 mls @ 250 mls/hr IV .Q4H5M PRN PRN Reason: K LEVEL < 3.3 mM/L Stop: 12/28/24 20:04 Potassium Chloride 40 meq/ (Dextrose/Lactated Ringer's) 1,020 mls @ 250 mls/hr IV .Q4H5M PRN PRN Reason: K LEVEL < 3.3mM/L Stop: 12/28/24 20:04 Potassium Cl/Dextrose/Lact Ringer's (Kcl 20 Meq/L In D5-Lr) 20 meq in 1,000 mls @ 250 mls/hr IV .Q4H PRN PRN Reason: K LEVEL 3.3 TO 5.3 mM/L Potassium Chloride (Kcl Ivpb) 10 meq in 100 mls @ 50 mls/hr IV PRN PRN PRN Reason: K LEVEL 3.3 to 5.3 & BG > 200 Stop: 12/28/24 20:04 Last Infusion: 11/29/24 06:45 Dose: Infused Potassium Phosphate (Pot Phos 15 Mmol In Ns 250 Ml) 15 mmol in 250 mls @ 62.5 mls/hr IV PRN PRN PRN Reason: Phosphate <= 1mg/dL Stop: 12/28/24 20:04 Sodium Phosphate 15 mmol/ (Sodium Chloride) 255 mls @ 62.5 mls/hr IV .Q4H5M PRN PRN Reason: Phosphate <= 1mg/dL and K> than 5.3 Stop: 12/28/24 20:04 Epinephrine/Sodium Chloride (Adrenalin/Ns 4 Mg Ivpb) 4 mg in 250 mls @ 13.948 mls/hr IV .[id number] PRN; Protocol PRN Reason: per protocol Stop: 12/28/24 20:56 Last Titration: 11/29/24 01:52 Dose: 0 mcg/kg/min, 0 mls/hr Ceftriaxone Sodium 2 gm/ (Sodium Chloride) 50 mls @ 100 mls/hr IV X1 ONE Stop: 11/28/24 22:19 Last Admin: 11/28/24 23:39 Dose: 100 mls/hr Fentanyl Citrate (Sublimaze Inj 2,500 Mcg/250 Ml Bag) 2,500 mcg in 250 mls @ 2.5 mls/hr IV .Q24H PRN; Protocol PRN Reason: PER PROTOCOL Stop: 12/03/24 22:17 Last Titration: 11/29/24 07:38 Dose: 0 mcg/hr, 0 mls/hr Sodium Chloride (Ns) 1,000 mls @ 999 mls/hr IV .Q1H1M ONE Stop: 11/29/24 00:10 Last Admin: 11/28/24 23:32 Dose: 999 mls/hr Vancomycin HCl 2,000 mg/ (Sodium Chloride) 500 mls @ 150 mls/hr IV X1 ONE Stop: 11/29/24 02:30 Last Admin: 11/29/24 00:54 Dose: 150 mls/hr Potassium Chloride 20 meq/ (Dextrose/Lactated Ringer's) 1,010 mls @ 250 mls/hr IV .Q4H3M PRN PRN Reason: K LEVEL 3.3 TO 5.3 mM/L Stop: 12/29/24 10:05 Last Admin: 11/29/24 20:15 Dose: 250 mls/hr Lactated Ringer's (Lactated Ringers) 1,000 mls @ 999 mls/hr IV .Q1H1M ONE Stop: 11/29/24 17:48 Last Infusion: 11/29/24 18:17 Dose: Infused Acetazolamide Sodium 500 mg/ (Sodium Chloride) 50 mls @ 100 mls/hr IV X1 ONE Stop: 11/29/24 17:17 Last Admin: 11/29/24 19:10 Dose: 100 mls/hr Potassium Phosphate (Pot Phos 15 Mmol In Ns 250 Ml) 15 mmol in 250 mls @ 62.5 mls/hr IV X1 ONE Stop: 11/30/24 11:18 Last Infusion: 11/30/24 11:50 Dose: Infused Insulin Degludec (Insulin Degludec 5 Unit/0.05 Ml (Per 5 Units)) 20 unit SC QDAY [facility] Stop: 12/29/24 19:14 Last Admin: 11/29/24 19:43 Dose: 20 unit Insulin Human Lispro (Insulin Lispro (Admelog) 1 Unit/0.01 Ml Unit) 3 unit SC TID [facility] Stop: 12/30/24 13:59 Insulin Human Regular (Insulin Hum Regular 1 Unit/0.01 Ml (Per Unit)) 20 unit SC X1 ONE Stop: 11/28/24 19:41 Last Admin: 11/28/24 19:47 Dose: 20 unit Lidocaine HCl (Lidocaine Hcl 1% 20 Ml Vial) 20 ml INFL X1 ONE Stop: 11/30/24 16:32 Last Admin: 11/30/24 16:47 Dose: 20 ml Midazolam HCl (Midazolam Inj 1 Mg/Ml Vial 2 Ml) 2 mg IVP X1 ONE Stop: 11/29/24 11:26 Last Admin: 11/29/24 11:25 Dose: 2 mg Pharmacy Consult (Vancomycin Pharmacy To Dose 1 Each Each) 1 each IV QDAY TR[facility] Stop: 12/28/24 19:29 Last Admin: 11/28/24 23:11 Dose: Not Given Sodium Bicarbonate (Sodium Bicarbonate 4.2% 0.5 Meq/Ml Vial 5 Ml) 2.5 meq IV X1 ONE Stop: 11/28/24 18:07 Last Admin: 11/28/24 20:37 Dose: Not Given Sodium Bicarbonate (Sodium Bicarb Inj 8.4% Syr 50 Ml Syringe) 50 ml IV X1 ONE Stop: 11/28/24 18:10 Last Admin: 11/28/24 18:16 Dose: 50 ml Sodium Bicarbonate (Sodium Bicarb Inj 8.4% Syr 50 Ml Syringe) 100 ml IV X1 ONE Stop: 11/28/24 19:52 Last Admin: 11/28/24 21:45 Dose: 100 ml Sodium Bicarbonate (Sodium Bicarb Inj 8.4% Syr 50 Ml Syringe) 50 ml IV Q4HR PRN PRN Reason: For ph <= to 7.0 Stop: 12/28/24 20:04 Assessment & Plan Plan Kiana Main is 29 yr female with PMH of type 1 diabetes, polysubstance use, poor compliance with her diabetes who was admitted to ICU for DKA. Labs reflected hyperkalemia 7.4, UTOX positive for methamphetamine and cocaine. CT head showed MCA infarct in MCA distribution involving bilateral occipital lobes. #Hypoxic brain injury #MCA infarct #Cerebral edema CT brain showed massive infarction in MCA distribution involving bilateral occipital lobes. Patient had down time ~20 minutes. Potassium was 7.4 and acidosis likely contributing to arrest and subsequently hypoxic brain injury. Patient has normal corneal reflex, draws from pain stimuli. - Follow-up brain MRI without contrast - EEG -Neurologic monitoring with checks Q 1-2 hours - Avoid hyperthermia - Seizure precaution - Supportive management - Goals of care discussion with family for PEG/trach #S/p cardiac arrest - ROSC in 20 minutes #Shock likely mixed hypvolemic and distributive (resolved) #Acute hypoxic/hypercapneic respiratory failure #Intubated and mechanically ventilated for airway protection #Transaminitis #Stress ulcer prophylaxis #Hypernatremia #Mixed acid-base disorder (resolved) #Anion gap metabolic acidosis with non-compensatory respiratory acidosis (resolved) #Respiratory alkalosis (resolved) #Mixed-type lactic acidosis, in the setting of DKA (resolved) #Acute kidney injury (improving) #Leukocytosis (downtrending) #Insulin-dependent diabetes mellitus type 1 #Diabetic ketoacidosis (resolved) #Hyperglycemia #History of hypothyroidism #Urinary tract infection #GPC bacteremia Primary care team to manage above conditions and ongoing care needs. The patient's management plan was discussed with my attending physician Dr. Cherry. Joy Arvizu, PGY-2 Attending Provider Attestation/Addendum I personally have seen and examined the patient at the bedside and I agree with resident's findings, assessment and plan of care. Patient presenting symptoms clinically and radiologically are most consistent with severe hypoxic brain injury following cardiorespiratory arrest. Will follow-up with the MRI brain and EEG and then discussed with family regarding prognosis.
[2024-11-30 20:00] LABS: Anion Gap 12 (7-16); BUN/Creatinine Ratio 15 Ratio (12-20); Blood Urea Nitrogen 19 mg/dL (9-23); Calcium 9.0 mg/dL (8.3-10.6); Carbon Dioxide 26.8 mMol/L (20.0-31.0); Chloride 114 mMol/L (98-107); Creatinine (Component) 1.3 mg/dL (0.6-1.3); Estimated Creatinine Clearance 65.9 mL/min (>60); Glucose 247 mg/dL (74-106); Magnesium 2.5 mg/dL (1.6-2.6); Osmolality,Calculated 313 (275-295); Phosphorous 1.5 mg/dL (2.4-5.1); Potassium 2.9 mMol/L (3.4-5.1); Sodium 153 mMol/L (136-145); eGFR 56 See Note
[2024-11-30] MEDS: Magnesium Sulfate 2 GM Ivpb 2 GM/50 ML BAG IV (20:44)
--- NOTE | 2024-11-30 21:18 | RESP.EEG ---
EEG has been completed and is ready for MD interpretation
--- NOTE | 2024-11-30 21:31 | PD.RESEVENT ---
Documentation for date of: 11/30/24 Event Note Event Note: 21:30 Received call from RN about BP 186/93, HR 84-89 Reached out to Neurology resident re: permissive hypertension - no response and no documentation about BP parameters on the note. MRIB shows diffuse hypoxic brain injury. Previous Head CT showed large MCA infarct. Will treat with Labetalol 10mg IV x1 , as it has been >24 hours since initial Head CT and >48 hours since admission. - Zaid Soto M.D. PGY3 Disclaimer: Minor errors in career development engineer may be present as this note was dictated using voice recognition software.
[2024-11-30] MEDS: LABETALOL INJ 5 MG/ML VIAL 20 ML 10 MG IVP (22:09)
[2024-12-01] VITALS (74 sets, daily range): BP systolic 138–196; BP diastolic 78–133; PULSE 60–195; RESP 9–38; TEMP 36.1–38.1; O2SAT 95–100; BMI 31.7
[2024-12-01 00:02] LABS: Albumin, Serum 3.3 gm/dL (3.5-5.0); Anion Gap 9 (7-16); BUN/Creatinine Ratio 14 Ratio (12-20); Blood Urea Nitrogen 15 mg/dL (9-23); Calcium 8.6 mg/dL (8.3-10.6); Calcium (Corrected) 9.2 mg/dL (8.5-10.1); Carbon Dioxide 28.6 mMol/L (20.0-31.0); Chloride 116 mMol/L (98-107); Creatinine (Component) 1.1 mg/dL (0.6-1.3); Estimated Creatinine Clearance 77.8 mL/min (>60); Glucose 250 mg/dL (74-106); Osmolality,Calculated 314 (275-295); Phosphorous 2.9 mg/dL (2.4-5.1); Potassium 3.2 mMol/L (3.4-5.1); Sodium 154 mMol/L (136-145); eGFR > 60 See Note
--- NOTE | 2024-12-01 00:15 | EVENTNT_ITS ---
Documentation for date of: 12/01/24 Event Note Event Note: 00:15 BP normalized to 130/90s post Labetalol 10mg, however went back up to 188/116 into 2.5 hours Heart rate at this time 60-63 bpm, SBP trending 170?180 Will give hydralazine 10 mg x 1 - Zaid Soto M.D. PGY3 Disclaimer: Minor errors in data processing systems project planner may be present as this note was dictated using voice recognition software.
[2024-12-01] MEDS: hydrALAZINE INJ 20 MG/ML VIAL 10 MG IVP ×2 (01:25→04:39)
[2024-12-01 05:09] LABS: Base Excess 2 (-3-3); HCO3 25 mEq/L (20-26); Inspired Oxygen, FIO2 40 %; O2 Saturation 97 % (91-98); PCO2 30 mmHg (32.0-48.0); PO2 94 mmHg (83-108); pH, Arterial 7.52 (7.35-7.45)
[2024-12-01 05:10] LABS: Allen Test Performed/OK; Puncture Site Right Brachial
[2024-12-01 05:32] LABS: Basophils # (Auto) 0.0 Thou/mm3 (0.0-0.2); Basophils % (Auto) 0 % (0-2.5); Eosinophils # (Auto) 0.0 Thou/mm3 (0.0-0.5); Eosinophils % (Auto) 0 % (0-10); Hematocrit 33.8 % (36.0-46.0); Hemoglobin 11.2 g/dL (12.0-16.0); Immature Granulocytes Auto 0.14 Thou/mm3 (0.00-0.00); Lymphocytes # (Auto) 1.4 Thou/mm3 (1.0-4.8); Lymphocytes % (Auto) 9 % (10-50); Mean Corpuscular HGB Conc 33.1 g/dl (31.0-37.0); Mean Corpuscular Hemoglobin 28.7 pg (25.0-35.0); Mean Corpuscular Volume 87 fL (80-100); Monocytes # (Auto) 1.1 Thou/mm3 (0.0-0.8); Monocytes % (Auto) 7 % (0-12); Neutrophils # (Auto) 13.0 Thou/mm3 (1.8-7.7); Neutrophils % (Auto) 83 % (37-80); Nucleated Red Blood Cell # 0.00 Thou/mm3 (0.00-0.00); Nucleated Red Blood Cell % 0 /100 WBC (0); Platelet Count 129 Thou/mm3 (140-440); RDW Standard Deviation 45.1 fL (36.4-46.3); Red Blood Count 3.90 Miln/mm3 (4.00-5.20); White Blood Count 15.7 Thou/mm3 (3.6-11.0)
[2024-12-01 05:57] LABS: Alanine Aminotransferase 603 U/L (10-49); Albumin, Serum 3.5 gm/dL (3.5-5.0); Albumin/Globulin Ratio 1.8 (1.2-2.2); Alkaline Phosphatase 107 U/L (46-116); Anion Gap 14 (7-16); Aspartate Amino Transferase 415 U/L (0-34); BUN/Creatinine Ratio 14 Ratio (12-20); Bilirubin,Total 0.5 mg/dL (0.3-1.2); Blood Urea Nitrogen 14 mg/dL (9-23); Calcium 9.0 mg/dL (8.3-10.6); Calcium (Corrected) 9.4 mg/dL (8.5-10.1); Carbon Dioxide 25.3 mMol/L (20.0-31.0); Chloride 115 mMol/L (98-107); Creatinine (Component) 1.0 mg/dL (0.6-1.3); Estimated Creatinine Clearance 85.6 mL/min (>60); Globulin 2.0 gm/dL (2.3-3.5); Glucose 272 mg/dL (74-106); Magnesium 2.7 mg/dL (1.6-2.6); Osmolality,Calculated 315 (275-295); Phosphorous 2.6 mg/dL (2.4-5.1); Potassium 3.0 mMol/L (3.4-5.1); Sodium 154 mMol/L (136-145); Total Protein 5.5 gm/dL (5.7-8.2); eGFR > 60 See Note
[2024-12-01] MEDS: INSULIN LISPRO (AdmeLOG) 1 UNIT/0.01 ML UNIT SC ×4 (06:18→23:44)
--- NOTE | 2024-12-01 08:25 | XR_ITS ---
Examination: CT brain head without contrast. 2-D sagittal coronal reconstructions Date and time of exam: December 01, 2024, 2057 hours, comparison November 29, 2024 INDICATIONS: Status post cardiopulmonary arrest, extensive areas of early infarction in anoxia ischemic change in the left middle cerebral artery distribution in both occipital lobe on CT brain scan November 29, 2024 CTDI: vol (mGy): 50.9 DLP: (mGycm): 1102 Technique: Multiple CT axial sections of the brain have been obtained, 5 mm slice thickness. Contrast has not been administered. 2-D sagittal, coronal reconstructions have been obtained Low dose protocols were performed. One or more of the following dose reduction techniques were used; automated exposure control, adjustment of the mA and/or KV according to patient size, use of iterative reconstruction technique. Findings: More extensive severe generalized cerebral edema Ventricles are not enlarged No acute hemorrhage Patient motion degrades image quality Cranial vault intact IMPRESSION: Interval generalized more severe cerebral edema
[2024-12-01] MEDS: cefTRIAXone/D5w 1gm IV premix 1 GM/50 ML BAG IV (09:38)
[2024-12-01] MEDS: ENOXAPARIN SOD INJ 30 MG/0.3 ML SYRINGE SC (09:39)
[2024-12-01] MEDS: INSULIN DEGLUDEC 5 UNIT/0.05 ML (PER 5 UNITS) 25 UNIT SC (10:02)
[2024-12-01] MEDS: Vancomycin Inj 1,500 MG in SODIUM CHLORIDE 0.9% 500 ML 500 ML 200 MG IV (10:29)
[2024-12-01] MEDS: fentaNYL 2,500 MCG/250 ML BAG 2,500 MCG/250 ML BAG IV (11:14)
[2024-12-01] MEDS: POTASSIUM CHL 10 mEq IVPB 10 MEQ/100 ML BAG 100 MEQ IV ×4 (11:14→14:46)
--- NOTE | 2024-12-01 11:56 | PC.CM ---
Addendum entered by Monisha Ahmadi RN 12/01/24 14:41: 1400 I spoke to Hannah from [facility] and he states they were having a problem from their end and they did get the images that were pushed over. They will present patient. 1345 I spoke to Pop at [facility] and I let them know that the images where pushed over and they show they went though from my end. Pop states they will speak to their radiology department to find out if they got the images. 1230 I spoke to Carol at [facility]. She states they received the packet but they did not get the images that I pushed over. Original Note: 1130 I faxed information to [facility] and initiated a transfer. I faxed over information and I pushed over images. 1115 I received a referral to transfer patient for neurosurgery.
[2024-12-01 12:34] LABS: Base Excess 2 (-3-3); HCO3 24 mEq/L (20-26); Inspired Oxygen, FIO2 30 %; O2 Saturation 98 % (91-98); PCO2 31 mmHg (32.0-48.0); PO2 101 mmHg (83-108); pH, Arterial 7.51 (7.35-7.45)
[2024-12-01 12:35] LABS: Allen Test Performed/OK; Puncture Site Left Radial
--- NOTE | 2024-12-01 15:14 | PC.SS ---
Update: Patient remains intubated. Off sedation. OG tube for feedings. Patient receiving IV antibiotics. Skaggs catheter in place. Neuro transfer center to be consulted.
--- NOTE | 2024-12-01 18:40 | ESPR_ITS ---
Documentation for date of: 12/01/24 Subjective Subjective Interval history: 29-year-old female with a history of poorly controlled type 1 diabetes mellitus, multiple prior admissions for DKA, polysubstance use, hypothyroidism (methamphetamine and cocaine) presented to the ED on 11/28/2024 with complaints of feeling like she was ?in DKA? (per ED documentation). She had not taken Lantus for the past 3 days due to running out, though she continued using NovoLog. She also endorsed recent cocaine use. ED Course: -Initial vitals were: BP 110/82, HR 128, RR 24, T 100F, O2 saturation 98% on room air (FiO2 60%). -Labs significant for: only lab results available at the time was CBC which was remarkable for WBC 36.8, neutrophil predominant. Urine analysis showed rare bacteria, 4+ glucose and 3+ ketones. Urine toxicology positive for methamphetamine and cocaine. -Imaging included: none -In the ED, patient was given: 3L of LR. At 1905, the patient became unresponsive and a code blue was called. She was found to be in cardiac arrest. ACLS was initiated, including chest compressions, epinephrine, sodium bicarbonate, and intubation by the ED attending. ROSC was achieved at 1925. IO access was initially obtained, followed by successful placement of a central line. Post-ROSC labs: Electrolytes: Na 131 (L), K 7.4 (H), Cl 86 (L), HCO3 <10 (L), Anion gap 35 (H). Renal: BUN 47 (H), Cr 3.6 (H), eGFR 17 (L). Glucose: 1258 (H). Other: Ca 8.0 (L), Phos 18.8 (H), Mg 3.6 (H), AST >1000 (H), ALT 483 (H), Albumin 3.3 (L), beta-hydroxybutyrate >6.4 (H). She was found to be severely acidotic and started on bicarbonate drip. She was also hypotensive and started on vasopressors (Levophed and epinephrine). Insulin drip was initiated empirically for diabetic ketoacidosis. Due to ED physician's concern for unsterilized procedure marrufo in acute setting, patient was empirically started on Vancomycin and Zosyn. Patient was admitted to the ICU for continued resuscitation and management. Interval History: 12/01/2024: Patient evaluated at bedside, shows no improvement in neurological status. Overnight, patient had bradycardia that transitioned to tachycardia, significant hypertension requiring labetalol and hydralazine IV pushes. Patient taken off pressure support due to some respiratory distress, unclear of what nature. Urine output approximately 100 cc/h throughout the night. MRI showed massive diffuse anoxic changes to brain. Repeat head CT showed concern for impending herniation, and worsening cerebral edema. This findings were discussed with the family who showed good understanding and awareness. Fentanyl was initiated for pain control. Consult placed to transfer to neurosurgical center given risk of impending herniation considering cerebral edema. ABG showed mild respiratory alkalosis, Vent settings adjusted appropriately. 11/30/2024: Overnight, the patient was transitioned to subcutaneous insulin, with IV insulin discontinued approximately one hour later. Tube feeds were initiated at a rate of 25 mL/hr. The patient's blood glucose levels have ranged from 157 to 341 mg/dL. The patient was initially started on 20 units of insulin degludec, along with a sliding scale insulin. In response to blood glucose fluctuations, the insulin degludec dose was increased to 25 units to improve control. The patient's urine output was 900 mL over the past 24 hours, averaging 100 mL/hr. A head CT performed yesterday revealed extensive infarction in the left middle cerebral artery distribution and both occipital lobes. These findings were discussed with the patient's family during their visit around 11:00 AM. In addition, Dr. Cherry was consulted to provide a more detailed explanation of the extent of the brain damage following the patient's cardiac arrest to family. 11/29/2024: Overnight, patient remained on vasopressors and bicarbonate drip overnight and was weaned off around 6AM this morning. Propofol and fentanyl have been held to allow for assessment of her underlying neurological status. She is currently afebrile with adequate urine output (~3.3L over the past 24 hours). Exam Vital Signs Temp Pulse Resp BP Pulse Ox O2 Del Method O2 Flow Rate 97.0 F 101 H 38 H 158/111 H 99 Mechanical Ventilation 5 12/01/24 16:00 12/01/24 18:30 12/01/24 09:15 12/01/24 18:30 12/01/24 18:30 12/01/24 16:00 11/28/24 18:50 FiO2 3 10/08/25 16:00 Narrative Exam General: Intubated. GCS 5T. Head: Normocephalic, atraumatic. Eyes: Pupils are equal and reactive to light. Anicteric. Corneal reflex is present. Mouth/Throat: ET tube and OG tube in place. Gag reflex present. Heart: Regular rate and rhythm, no murmurs. No JVD. Internal jugular vein central line present. Lungs: Clear to auscultation with no wheezing or crackles. Non-labored respirations, symmetric chest rise, no use of accessory muscles. Mechanical breath sounds. Abdomen: Soft and non-distended. Johnston in place. Extremities: No edema in lower extremities. Mild swelling of bilateral hands. Posterior tibial pulses are 2+ bilaterally. 2+ radial pulse bilaterally. No clubbing or cyanosis. No mottling. Soft restraints on bilateral wrists. Neuro: Decerebrate posturing of bilateral upper extremities. Plantar flexion in lower extremities. Skin: No rash. Tattoos. Objective Labs 12/02/24 04:17 12/02/24 04:17 Labs: Laboratory Results - last 24 hr 11/30/24 11/30/24 12/01/24 19:10 23:37 04:55 WBC 15.7 H D RBC 3.90 L Hgb 11.2 L Hct 33.8 L MCV 87 MCH 28.7 MCHC 33.1 RDW Std Deviation 45.1 Plt Count 129 L D Neut % (Auto) 83 H Lymph % (Auto) 9 L [place] % (Auto) 7 Eos % (Auto) 0 Baso % (Auto) 0 Neut # (Auto) 13.0 H Lymph # (Auto) 1.4 [place] # (Auto) 1.1 H Eos # (Auto) 0.0 Baso # (Auto) 0.0 Immature Gran # (Auto) 0.14 H Absolute Nucleated RBC 0.00 Immature Gran % 1 H Nucleated RBC % 0 Puncture Site ABG pH ABG pCO2 ABG pO2 ABG HCO3 ABG O2 Saturation ABG Base Excess FiO2 Sodium 153 H 154 H 154 H Potassium 2.9 L D 3.2 L 3.0 L Chloride 114 H 116 H 115 H Carbon Dioxide 26.8 28.6 25.3 Anion Gap 12 9 14 BUN 19 15 14 Creatinine 1.3 1.1 1.0 Estim Creat Clear Calc 65.9 77.8 85.6 eGFR 56 L > 60 > 60 BUN/Creatinine Ratio 15 14 14 Glucose 247 H D 250 H 272 H Calculated Osmolality 313 H 314 H 315 H Calcium 9.0 8.6 9.0 Corrected Calcium 9.2 9.4 Phosphorus 1.5 L 2.9 2.6 Magnesium 2.5 2.7 H Total Bilirubin 0.5 AST 415 H ALT 603 H* Alkaline Phosphatase 107 Total Protein 5.5 L Albumin 3.3 L 3.5 Globulin 2.0 L Albumin/Globulin Ratio 1.8 12/01/24 12/01/24 05:05 12:22 WBC RBC Hgb Hct MCV MCH MCHC RDW Std Deviation Plt Count Neut % (Auto) Lymph % (Auto) [place] % (Auto) Eos % (Auto) Baso % (Auto) Neut # (Auto) Lymph # (Auto) [place] # (Auto) Eos # (Auto) Baso # (Auto) Immature Gran # (Auto) Absolute Nucleated RBC Immature Gran % Nucleated RBC % Puncture Site Right Brachial Left Radial ABG pH 7.52 H 7.51 H ABG pCO2 30 L 31 L ABG pO2 94 D 101 ABG HCO3 25 24 ABG O2 Saturation 97 98 ABG Base Excess 2 2 FiO2 40 30 Sodium Potassium Chloride Carbon Dioxide Anion Gap BUN Creatinine Estim Creat Clear Calc eGFR BUN/Creatinine Ratio Glucose Calculated Osmolality Calcium Corrected Calcium Phosphorus Magnesium Total Bilirubin AST ALT Alkaline Phosphatase Total Protein Albumin Globulin Albumin/Globulin Ratio ABG Interpretation ABG results: 11/28/24 11/28/24 11/28/24 19:20 19:52 21:00 ABG pH 6.89 L* 7.02 L* D ABG pCO2 20 L 19 L* ABG pO2 300 H 261 H D ABG HCO3 4 L* 5 L* ABG O2 Saturation 99 H 100 H ABG Base Excess -28 L -25 L VBG pH 6.77 L VBG pCO2 35 L VBG pO2 149 H VBG Base Excess -29 L 11/29/24 11/29/24 11/29/24 01:28 04:19 12:14 ABG pH 7.36 D 7.46 H D 7.56 H D ABG pCO2 23 L 36 D 32 ABG pO2 132 H D 97 D 74 L D ABG HCO3 13 L 26 29 H ABG O2 Saturation 99 H 99 H 97 ABG Base Excess -10 L 2 6 H VBG pH VBG pCO2 VBG pO2 VBG Base Excess 11/29/24 11/29/24 11/30/24 12:21 16:06 04:46 ABG pH 7.48 H 7.45 ABG pCO2 40 35 ABG pO2 112 H D 131 H ABG HCO3 30 H 24 ABG O2 Saturation 99 H 98 ABG Base Excess 6 H 1 VBG pH 7.59 VBG pCO2 29 L VBG pO2 63 H D VBG Base Excess 6 H 12/01/24 12/01/24 05:05 12:22 ABG pH 7.52 H 7.51 H ABG pCO2 30 L 31 L ABG pO2 94 D 101 ABG HCO3 25 24 ABG O2 Saturation 97 98 ABG Base Excess 2 2 VBG pH VBG pCO2 VBG pO2 VBG Base Excess Quality Measures Quality Measures VTE prophylaxis (lovenox) Assessment & Plan Assessment Current Active Medications: Generic Name Dose Route Start Last Admin Trade Name Freq PRN Reason Stop Dose Admin Dextrose 25 ml 11/29/24 19:04 Dextrose 50%-Water Inj 50 Ml Syringe IV 12/29/24 19:03 Q15MIN PRN BG 50-70 responsive npo pt Dextrose 50 ml 11/29/24 19:04 Dextrose 50%-Water Inj 50 Ml Syringe IV 12/29/24 19:03 Q15MIN PRN BG <50 OR BG <70 & pt unresponsive Enoxaparin Sodium 30 mg 11/29/24 07:00 12/01/24 09:39 Enoxaparin Sod Inj 30 Mg/0.3 Ml Syringe SC 12/13/24 06:59 30 mg QDAY TRUDI Administration Glucagon 1 mg 11/29/24 19:04 Glucagon Inj 1 Mg Vial IM Q15MIN PRN BG <70, and no IV access Hydromorphone HCl 1 mg 11/30/24 16:47 11/30/24 18:18 Hydromorphone Inj 2 Mg/Ml Vial IVP 12/05/24 16:46 1 mg Q4HR PRN Administration Pain or agitation Propofol 1,000 mg in 100 mls @ 2.232 mls/hr 11/28/24 20:32 11/29/24 07:38 Diprivan Ivpb IV 12/28/24 20:31 0 mcg/kg/min .Q24H PRN 0 mls/hr PER PROTOCOL Titration Protocol 5 MCG/KG/MIN Midazolam HCl 100 mg in 100 mls @ 1 mls/hr 11/28/24 20:34 11/29/24 04:30 Versed Pf Inj In Ns Premix IV 12/03/24 19:33 0 mg/hr .Q24H PRN 0 mls/hr PER PROTOCOL Titration Protocol 1 MG/HR Ceftriaxone Sodium/Dextrose 1 gm in 50 mls @ 100 mls/hr 11/29/24 09:00 12/01/24 15:25 Rocephin/D5w 1gm Iv Premix IV 12/06/24 08:59 Infused QDAY TRUDI Infusion Vancomycin HCl 1,500 mg/ 500 mls @ 200 mls/hr 11/30/24 10:00 12/01/24 15:25 Sodium Chloride IV 12/07/24 09:59 Infused Q24H TRUDI Infusion Protocol Fentanyl Citrate 2,500 mcg in 250 mls @ 2.5 mls/hr 12/01/24 10:56 12/01/24 18:17 Sublimaze Inj 2,500 Mcg/250 Ml Bag IV 12/06/24 10:55 175 mcg/hr .Q24H PRN 17.5 mls/hr PER PROTOCOL Titration Protocol 25 MCG/HR Insulin Degludec 25 unit 11/30/24 09:00 12/01/24 10:02 Insulin Degludec 5 Unit/0.05 Ml (Per 5 Units) SC 12/30/24 08:59 25 unit QDAY TRUDI Administration Insulin Human Lispro 0 unit 11/30/24 00:00 12/01/24 17:40 Insulin Lispro (Admelog) 1 Unit/0.01 Ml Unit SC 12/30/24 00:00 4 unit Q6HR TRUDI Administration Protocol Labetalol HCl 10 mg 12/01/24 12:20 Labetalol Inj 5 Mg/Ml Vial 20 Ml IVP 12/31/24 04:14 Q6H PRN SBP >170 Levothyroxine Sodium 68 mcg 11/28/24 22:25 12/01/24 09:39 Levothyroxine Inj 100 Mcg Vial IV 12/28/24 22:24 68 mcg DAILY TRUDI Administration Ondansetron HCl 4 mg 11/28/24 20:00 Ondansetron Inj 2 Mg/Ml Inj 2 Ml IVP 12/28/24 19:59 Q6H PRN NAUSEA OR VOMITING Protocol Pharmacy Consult 1 each 11/29/24 09:00 12/01/24 10:35 Pharmacy Renal Dose Adjustment 1 Ea XX 12/29/24 08:59 Not Given QDAY [facility] Pharmacy Consult 1 each 11/30/24 09:45 Vancomycin Pharmacy To Dose 1 Each Each IV 12/30/24 09:44 QDAY PRN RX Sodium Chloride 5 ml 11/28/24 19:36 Sodium Chloride Rt 10% 15 Ml Nebu INH 12/28/24 19:35 X1 PRN SPUTUM CLEARANCE Plan 29-year-old female with poorly controlled type 1 diabetes, hypothyroidism, and polysubstance use admitted to ICU for DKA complicated by cardiac arrest, now post-ROSC. Goals of care Dr. 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 The family was thoroughly informed about the patient's current neurological status and the extent of the anoxic brain injury. The patient?s prognosis and potential next steps were discussed in detail. The following options were presented to the family: Tracheostomy and PEG tube placement for long-term respiratory and nutritional support. [facility] Facility for continued care.Comfort care as an alternative, should the family decide that aggressive interventions would not align with the patient?s values or wishes. The family was provided ample time to ask questions and discuss the information presented. At this time, the family has not yet made a decision regarding the next steps in care.Neurology was consulted to provide a further detailed review and explanation of the patient?s neurological status, ensuring the family had a comprehensive understanding of the patient?s condition and prognosis. Neurology #Acute encephalopathy #Anoxic brain injury DDx: Metabolic due to diabetic ketoacidosis vs substance intoxication vs severe hyperglycemia vs metabolic acidosis vs hypovolemia. Diagnostic Test: - GCS 5T (no eye opening +1, intubated +1, withdrawal from pain +4, both pupils reactive to light). - Urine toxicology positive for methamphetamine and cocaine. Patient initially endorsed use as well. - Initial UA: rare bacteria, 4+ glucose and 3+ ketones. - Initial blood glucose: 1258. - Initial ABG: pH 6.89, pCO2 20, pO2 300, HCO3 4. - Initial BUN 57 and Cr 3.6. - CT head (11/29): Extensive areas of early infarction in left middle cerebral artery distribution and both occipital lobes. - Neurology consulted. - MRI 11/30: Diffuse anoxic brain injury - CT head 12/01: Increasing cerebral edema, concern for impending herniation Treatment Plan: - Propofol and fentanyl has been held for over 24 hours now with no change in mentation. - Goals of care discussion with family. - Fentanyl titrated for comfort Cardiovascular #Hypertension, acute Suspected due to beginnings of herniation in setting of diffuse cerebral edema. Initial associate bradycardia that changed to tachycardia. Overnight BP was as high as 190/115. Labetalol and hydralazine provided temporary relief. Treatment plan: - Labetalol as needed #Sinus tachycardia Etiologies include reactive to pain, cerebral edema, infection Patient elevated heart rate, ranging from 100?120 overnight. Patient on telemetry monitor. Treatment plan: - Fentanyl for patient comfort - Treat underlying infection - night monitor in place #S/p cardiac arrest - ROSC in 20 minutes #Shock likely mixed hypvolemic and distributive (resolved) Likely etiologies include severe acidosis, hyperkalemia, and vasodilation. Code blue start 1904, ROSC at 1924. Patient received 2 rounds of Epinephrine during code blue. Initial rhythm noted to be PEA. Diagnostic Test: - EKG post ROSC showed sinus tachycardia. - Initial potassium level 7.4. - Initial ABG: pH 6.89, pCO2 20, pO2 300, HCO3 4. - Bedside echo showed adequate LV contractility. Treatment Plan: - Maintain electrolytes in optimized range. Repleted potassium and phosphate today. Treatment Review: - Patient received several liters of IV fluids in the ER and remained hypotensive. She was started on bolus epinephrine and Levophed , which were discontinued this morning and her blood pressure has remained stable. - Lactic acidosis has resolved with fluids. Respiratory #Acute hypoxic/hypercapneic respiratory failure #Intubated and mechanically ventilated for airway protection Diagnostic Test: - CXR: No aspiration pneumonia or pulmonary edema. - ABGs: 11/28 19:52: pH 6.89/pCO2 20/pO2 300/HCO3 4 11/28 21:00: pH 7.02/pCO2 19/pO2 261/HCO3 5 11/28 01:28: pH 7.36/pCO2 23/pO2 132/HCO3 13 11/28 04:19: pH 7.46/pCO2 36/pO2 97/HCO3 26 11/29 12:21: pH 7.56/pCO2 32/pO2 74/HCO3 29 11/30 04:46: pH 7.45/pCO2 35/pO2 131/HCO3 24 - Patient's GCS is 5T - Gag reflex intact. Treatment Plan: - Continue ventilation: A/CMV PRVC. Settings PEEP 5.0, FiO2 30, RR 30, VT 400. - Adjust ventilation as needed. - Need GCS > 8 for extubation. GI and F/E/N #Transaminitis (resolving) Likely secondary to ischemic hepatitis. DDx: decreased perfusion, severe dehydration, hypotension, metabolic acidosis from DKA and cardiac arrest. Diagnostic Test: - AST > 1000 (significant elevation, supports hepatic injury) --> 1883 --> 1344. - ALT 483 --> 665 --> 842. - Acetaminophen < 2.0 (ruled out toxicity). - Hepatitis panel non reactive. Treatment Plan: - Monitor liver function with daily LFTs. - Adequate volume resuscitation and correction of acidosis. - Avoid hepatotoxic. #Stress ulcer prophylaxis - Continue IV Protonix. Renal #Hypernatremia Diagnostic Test: - Sodium level 149 --> 151 --> 152 --> 150. Treatment Plan: - Avoid hypotonic solutions, given the patient's brain injury, as can increase the risk of cerebral edema. - Continue monitoring sodium levels closely. - Reevaluate the need for hypertonic saline or other specific treatments if sodium levels continue to rise. #Mixed acid-base disorder (resolved) #Anion gap metabolic acidosis with non-compensatory respiratory acidosis (resolved) #Respiratory alkalosis (resolved) Diagnostic Test: - 11/28 19:52: Initial ABG: pH 6.89/pCO2 20/pO2 300/HCO3 4. Interpretation: metabolic acidosis with anion gap of 35. Using Winter's Formula (with HCO3 from CMP): Predicted pCO2 range = 21-25. The observed pCO2 of 20 is not compensatory, suggesting anion gap metabolic acidosis with non-compensatory respiratory acidosis. - Subsequent ABG (11/28 20:15): pH 7.02/pCO2 19/pO2 261/HCO3 5. Interpretation: falsely low pCO2 likely due to Kussmaul breathing. The patient's respiratory effort (deep, labored breathing) likely underestimates pCO2 and actual value is expected to be higher. - Trends in ABGs: over the following hours, the patient developed respiratory alkalosis, likely induced by insulin and bicarbonate, which can lower CO2. The ventilatory settings were adjusted to help counteract this alkalosis. RR was reduced from 22 to 15 bpm to allow CO2 retention and avoid excessive alkalosis. - Most recent AB/7 04:46: pH 7.45/pCO2 35/pO2 131/HCO3 24 Treatment Review: - pCO2 remained low despite ventilator adjustments, acetazolamide 500 mg x1 and LR given. - pH, serum bicarbonate and pCO2 as normalized. - Anion gap has closed twice. #Mixed-type lactic acidosis, in the setting of DKA (resolved) Likely multifactorial. DDx: type A from hypoperfusion/hypoxia related to hypovolemia due to DKA- associated osmotic diuresis and cardiac arrest, type B from hepatic dysfunction, stimulant/toxin use. Diagnostic test: - ABGs - metabolic acidosis with elevated anion gap and lactate. - Urine toxicology positive for methamphetamine and cocaine. - LFTs: AST > 1000, ALT 665, consistent with possible ischemic hepatitis. - Blood cultures: GPC positive. Treatment Plan: - Monitor serial lactate levels to ensure downtrend. - Monitor LFTs. - Monitor renal function and urine output. Treatment Review: - IV fluid hydration per DKA protocol. (Completed) - IV insulin infusion, titrated to close anion gap. (Completed) #Acute kidney injury (resolved) Likely prerenal secondary to dehydration and cardiac arrest. Diagnostic Test: - Baseline Cr 1.1. - Admission Cr 3.6 --> 3.5 --> 2.7 --> 1.8 --> 1.6. - Urine output: 100cc/hr. Treatment Plan: - Avoid nephrotoxins. - Renally dose medications like anticoagulants and antibiotics. - Monitor I&Os. Heme #Leukocytosis (downtrending) DDx: reactive vs secondary to UTI. Diagnostic Test: - WBC 36.8 --> 25.3 --> 22.2. - Patient remains afebrile. Treatment Plan: -Monitor CBC and trend WBCs. Endo #Insulin-dependent diabetes mellitus type 1 #Diabetic ketoacidosis (resolved) #Hyperglycemia Secondary to noncompliance with diabetes medication. Diagnostic Test: - Beta hydroxybutyrate > 6.4 , blood glucose 1258, anion gap 35. - Refer to above for ABG results. Treatment Plan: - Insulin degludec 20 units was increased to 25 units qDaily for better blood glucose control. Increased again to 30 units. - Replete electrolytes as needed. Treatment Review: - Insulin ggt per DKA protocol. - Transitioned to subcutaneous insulin: Insulin degludec 30 units and Insulin sliding scale. - Anion gap has closed twice. #History of hypothyroidism Diagnostic Test: - TSH 7.10, Free T4 1.03 - On Levothyroxine 88 mcg p.o. daily at home. Treatment Plan: - Continue IV Levothyroxine 68mcg. Transition to PO as mentation improves. ID # Strep pyogenes bacteremia Diagnostic Test: - Urine in the johnston has a lot of sediment and appears turbid. - Urine culture negative for UTI, ruled out - Repeat UA positive for leukocyte esterase and WBCs. - GPC positive from both bottles, grew strep pyogenes, sensitivities pending - CBC WBC 36.8 --> 25.3 --> 22.2. Treatment Plan: - Continue Rocephin 1g daily (11/29 -). - Start Vancomyin (11/30-). - Follow-up urine culture. - Follow-up with repeat blood culture to document clearance. Treatment Review: - Vancomycin PTD x1 given. - Ceftriaxone 2 g IV x1 loading dose. Health maintenance: Disposition: Admit to ICU for DKA management DVT prophylaxis: Enoxaparin 30mg SC daily (renally dosed) GI prophylaxis: Protonix 40mg QD Diet: Tube feeds Johnston: present Central line: right internal jugular vein Vent: A/CMV PRVC Code status: FULL CODE Patient discussed with my attending, Dr. Soni. Kwame Solano MD PGY?2 Attending Provider Attestation/Addendum Patient seen and examined resident team. Agree with above. In brief this is a 29-year-old female who is frequently admitted to the ICU with DKA. This time around she developed a cardiac arrest in the ER. She has gone on to develop significant hypoxic brain injury with global cerebral edema. There have been reports of significant hypertension along with bradycardia increasing with suspicion for elevated ICP and possible impending herniation reason for which a stat head CT was obtained this morning. It did not show herniation however did show ongoing increasing cerebral edema. Neurology recommendations and input are greatly appreciated. She has had an MRI which shows the same global cerebral edema. I did request evaluation from neuro ICU and [facility]. The case was discussed on the phone with the transfer center. The patient was evaluated and given the images of the MRI as well as the patient's clinical presentation and her current GCS of 5T with extensor posturing it was felt there are no further interventions that would be able to be offered. Therefore there is no indication for transfer. Likelihood of improvement is extremely low and her prognosis is very very very poor. I have discussed this with the family and they are aware. She does have hypernatremia however at this point in time we will allow to drift upward should reach 160 at that point in time we will consider free water flushes through her OG tube. Case discussed with ICU team Discussed with neurology Discussed with [facility] Discussed with family Labs, imaging and records reviewed Approximately 41 critical care been required for evaluation, exam, review, intervention, discussion of formulation of plan of care for this critically ill patient with severe anoxic/hypoxic brain injury.
--- NOTE | 2024-12-01 19:16 | PC.NURSE ---
at 1000, spoke with DNW at [facility], gave update to sales representative [employer], at 0930, MD ornelas at bedside with pt mom and dad for update on pt condition, per MD ornelas transfer initiated for Neuro consult, no discussion for withdrawing care at this time
--- NOTE | 2024-12-01 19:59 | PD.RESPRO ---
Documentation for date of: 12/01/24 Subjective Subjective Interval history: Patient examined at bedside In ICU. Remains on mechanical ventilation pressure support. Vitals are stable BP 116/110, tachycardia 110. Patient was given labetalol , 10 mg IV x 1 followed by hydralazine 10 mg IV x 1 overnight. No permissive hypertension needed as it has been over 24 hr period. MRI confirmed anoxic brain injury with ischemic damage. EEG is pending. There was concern of brain herniation with cerebral edema. ICU team spoke with family who expressed interest in possible transfer for neurosurgery. Sodium was 154, continue to monitor. Avoid hypotonic fluids to avoid worsening edema. Decreased pain response likely due to her started on fentanyl drip. Exam Vital Signs Temp Pulse Resp BP Pulse Ox O2 Del Method O2 Flow Rate 97.0 F 117 H 38 H 158/111 H 99 Mechanical Ventilation 5 12/01/24 16:00 12/01/24 18:33 12/01/24 09:15 12/01/24 18:33 12/01/24 18:33 12/01/24 16:00 11/28/24 18:50 FiO2 30 12/01/24 18:33 Narrative Exam General: Intubated. GCS 5T. Head: Normocephalic, atraumatic. Eyes: Pupils are equal and reactive to light. Anicteric. Corneal reflex is present. Mouth/Throat: ET tube and OG tube in place. Heart: Regular rate and rhythm, no murmurs. No JVD. Internal jugular vein central line present. Lungs: Clear to auscultation with no wheezing or crackles. Non-labored respirations, symmetric chest rise, no use of accessory muscles. Mechanical breath sounds. Abdomen: Soft and non-distended. [place] in place. Extremities: No edema in lower extremities. Mild swelling of bilateral hands. Posterior tibial pulses are 2+ bilaterally. 2+ radial pulse bilaterally. No clubbing or cyanosis. No mottling. Soft restraints on bilateral wrists. Neuro: Decerebrate posturing of bilateral upper extremities. Plantar flexion in lower extremities. Skin: No rash. Tattoos. Objective Labs 12/01/24 04:55 12/01/24 04:55 Labs: Laboratory Results - last 24 hr 11/30/24 11/30/24 12/01/24 19:10 23:37 04:55 WBC 15.7 H D RBC 3.90 L Hgb 11.2 L Hct 33.8 L MCV 87 MCH 28.7 MCHC 33.1 RDW Std Deviation 45.1 Plt Count 129 L D Neut % (Auto) 83 H Lymph % (Auto) 9 L Coleman % (Auto) 7 Eos % (Auto) 0 Baso % (Auto) 0 Neut # (Auto) 13.0 H Lymph # (Auto) 1.4 Coleman # (Auto) 1.1 H Eos # (Auto) 0.0 Baso # (Auto) 0.0 Immature Gran # (Auto) 0.14 H Absolute Nucleated RBC 0.00 Immature Gran % 1 H Nucleated RBC % 0 Puncture Site ABG pH ABG pCO2 ABG pO2 ABG HCO3 ABG O2 Saturation ABG Base Excess FiO2 Sodium 153 H 154 H 154 H Potassium 2.9 L D 3.2 L 3.0 L Chloride 114 H 116 H 115 H Carbon Dioxide 26.8 28.6 25.3 Anion Gap 12 9 14 BUN 19 15 14 Creatinine 1.3 1.1 1.0 Estim Creat Clear Calc 65.9 77.8 85.6 eGFR 56 L > 60 > 60 BUN/Creatinine Ratio 15 14 14 Glucose 247 H D 250 H 272 H Calculated Osmolality 313 H 314 H 315 H Calcium 9.0 8.6 9.0 Corrected Calcium 9.2 9.4 Phosphorus 1.5 L 2.9 2.6 Magnesium 2.5 2.7 H Total Bilirubin 0.5 AST 415 H ALT 603 H* Alkaline Phosphatase 107 Total Protein 5.5 L Albumin 3.3 L 3.5 Globulin 2.0 L Albumin/Globulin Ratio 1.8 12/01/24 12/01/24 05:05 12:22 WBC RBC Hgb Hct MCV MCH MCHC RDW Std Deviation Plt Count Neut % (Auto) Lymph % (Auto) Coleman % (Auto) Eos % (Auto) Baso % (Auto) Neut # (Auto) Lymph # (Auto) Coleman # (Auto) Eos # (Auto) Baso # (Auto) Immature Gran # (Auto) Absolute Nucleated RBC Immature Gran % Nucleated RBC % Puncture Site Right Brachial Left Radial ABG pH 7.52 H 7.51 H ABG pCO2 30 L 31 L ABG pO2 94 D 101 ABG HCO3 25 24 ABG O2 Saturation 97 98 ABG Base Excess 2 2 FiO2 40 30 Sodium Potassium Chloride Carbon Dioxide Anion Gap BUN Creatinine Estim Creat Clear Calc eGFR BUN/Creatinine Ratio Glucose Calculated Osmolality Calcium Corrected Calcium Phosphorus Magnesium Total Bilirubin AST ALT Alkaline Phosphatase Total Protein Albumin Globulin Albumin/Globulin Ratio ABG Interpretation ABG results: 11/28/24 11/28/24 11/28/24 19:20 19:52 21:00 ABG pH 6.89 L* 7.02 L* D ABG pCO2 20 L 19 L* ABG pO2 300 H 261 H D ABG HCO3 4 L* 5 L* ABG O2 Saturation 99 H 100 H ABG Base Excess -28 L -25 L VBG pH 6.77 L VBG pCO2 35 L VBG pO2 149 H VBG Base Excess -29 L 11/29/24 11/29/24 11/29/24 01:28 04:19 12:14 ABG pH 7.36 D 7.46 H D 7.56 H D ABG pCO2 23 L 36 D 32 ABG pO2 132 H D 97 D 74 L D ABG HCO3 13 L 26 29 H ABG O2 Saturation 99 H 99 H 97 ABG Base Excess -10 L 2 6 H VBG pH VBG pCO2 VBG pO2 VBG Base Excess 11/29/24 11/29/24 11/30/24 12:21 16:06 04:46 ABG pH 7.48 H 7.45 ABG pCO2 40 35 ABG pO2 112 H D 131 H ABG HCO3 30 H 24 ABG O2 Saturation 99 H 98 ABG Base Excess 6 H 1 VBG pH 7.59 VBG pCO2 29 L VBG pO2 63 H D VBG Base Excess 6 H 12/01/24 12/01/24 05:05 12:22 ABG pH 7.52 H 7.51 H ABG pCO2 30 L 31 L ABG pO2 94 D 101 ABG HCO3 25 24 ABG O2 Saturation 97 98 ABG Base Excess 2 2 VBG pH VBG pCO2 VBG pO2 VBG Base Excess Quality Measures Quality Measures VTE prophylaxis (lovenox) Assessment & Plan Assessment Current Active Medications: Generic Name Dose Route Start Last Admin Trade Name Freq PRN Reason Stop Dose Admin Dextrose 25 ml 11/29/24 19:04 Dextrose 50%-Water Inj 50 Ml Syringe IV 12/29/24 19:03 Q15MIN PRN BG 50-70 responsive npo pt Dextrose 50 ml 11/29/24 19:04 Dextrose 50%-Water Inj 50 Ml Syringe IV 12/29/24 19:03 Q15MIN PRN BG <50 OR BG <70 & pt unresponsive Enoxaparin Sodium 30 mg 11/29/24 07:00 12/01/24 09:39 Enoxaparin Sod Inj 30 Mg/0.3 Ml Syringe SC 12/13/24 06:59 30 mg QDAY TRUDI Administration Glucagon 1 mg 11/29/24 19:04 Glucagon Inj 1 Mg Vial IM Q15MIN PRN BG <70, and no IV access Hydromorphone HCl 1 mg 11/30/24 16:47 11/30/24 18:18 Hydromorphone Inj 2 Mg/Ml Vial IVP 12/05/24 16:46 1 mg Q4HR PRN Administration Pain or agitation Ceftriaxone Sodium/Dextrose 1 gm in 50 mls @ 100 mls/hr 11/29/24 09:00 12/01/24 15:25 Rocephin/D5w 1gm Iv Premix IV 12/06/24 08:59 Infused QDAY TRUDI Infusion Vancomycin HCl 1,500 mg/ 500 mls @ 200 mls/hr 11/30/24 10:00 12/01/24 15:25 Sodium Chloride IV 12/07/24 09:59 Infused Q24H TRUDI Infusion Protocol Fentanyl Citrate 2,500 mcg in 250 mls @ 2.5 mls/hr 12/01/24 10:56 12/01/24 18:17 Sublimaze Inj 2,500 Mcg/250 Ml Bag IV 12/06/24 10:55 175 mcg/hr .Q24H PRN 17.5 mls/hr PER PROTOCOL Titration Protocol 25 MCG/HR Insulin Degludec 30 unit 12/02/24 09:00 Insulin Degludec 5 Unit/0.05 Ml (Per 5 Units) SC 01/01/25 08:59 QDAY TRUDI Insulin Human Lispro 0 unit 11/30/24 00:00 12/01/24 17:40 Insulin Lispro (Admelog) 1 Unit/0.01 Ml Unit SC 12/30/24 00:00 4 unit Q6HR TRUDI Administration Protocol Labetalol HCl 10 mg 12/01/24 12:20 Labetalol Inj 5 Mg/Ml Vial 20 Ml IVP 12/31/24 04:14 Q6H PRN SBP >170 Levothyroxine Sodium 68 mcg 11/28/24 22:25 12/01/24 09:39 Levothyroxine Inj 100 Mcg Vial IV 12/28/24 22:24 68 mcg DAILY TRUDI Administration Ondansetron HCl 4 mg 11/28/24 20:00 Ondansetron Inj 2 Mg/Ml Inj 2 Ml IVP 12/28/24 19:59 Q6H PRN NAUSEA OR VOMITING Protocol Pharmacy Consult 1 each 11/29/24 09:00 12/01/24 10:35 Pharmacy Renal Dose Adjustment 1 Ea XX 12/29/24 08:59 Not Given QDAY TRUDI Pharmacy Consult 1 each 11/30/24 09:45 Vancomycin Pharmacy To Dose 1 Each Each IV 12/30/24 09:44 QDAY PRN RX Sodium Chloride 5 ml 11/28/24 19:36 Sodium Chloride Rt 10% 15 Ml Nebu INH 12/28/24 19:35 X1 PRN SPUTUM CLEARANCE Plan Kiana Main is 29 yr female with PMH of type 1 diabetes, polysubstance use, poor compliance with her diabetes who was admitted to ICU for DKA. Labs reflected hyperkalemia 7.4, UTOX positive for methamphetamine and cocaine. CT head showed MCA infarct in MCA distribution involving bilateral occipital lobes. #Hypoxic brain injury #MCA infarct #Cerebral edema CT brain showed massive infarction in MCA distribution involving bilateral occipital lobes. Patient had down time ~20 minutes. Potassium was 7.4 and acidosis likely contributing to arrest and subsequently hypoxic brain injury. Patient has normal corneal reflex, draws from pain stimuli. MRI confirmed anoxic brain injury with ischemic damage. - EEG pending -Neurologic monitoring with checks Q 1-2 hours - Avoid hyperthermia - Seizure precaution - Supportive management - Goals of care discussion with family for PEG/trach -IV labetalol 10mg prn for SBP >170 #S/p cardiac arrest - ROSC in 20 minutes #Shock likely mixed hypvolemic and distributive (resolved) #Acute hypoxic/hypercapneic respiratory failure #Intubated and mechanically ventilated for airway protection #Transaminitis #Stress ulcer prophylaxis #Hypernatremia #Mixed acid-base disorder (resolved) #Anion gap metabolic acidosis with non-compensatory respiratory acidosis (resolved) #Respiratory alkalosis (resolved) #Mixed-type lactic acidosis, in the setting of DKA (resolved) #Acute kidney injury (improving) #Leukocytosis (downtrending) #Insulin-dependent diabetes mellitus type 1 #Diabetic ketoacidosis (resolved) #Hyperglycemia #History of hypothyroidism #Urinary tract infection #GPC bacteremia Primary care team to manage above conditions and ongoing care needs. The patient's management plan was discussed with my attending physician Dr. Cherry. Joy Arvizu, PGY-2 Attending Provider Attestation/Addendum I personally have seen and examined the patient at the bedside and I agreed with resident findings, assessment plan of care. Patient with diffuse cerebral edema from hypoxic brain injury following cardiorespiratory arrest. Patient continues to be encephalopathic, started on fentanyl as she started becoming more restless and biting the ET tube with very high blood pressure readings. MRI brain showed diffuse cerebral edema as seen in severe hypoxic brain injury, EEG showed moderate diffuse slowing consistent with hypoxic brain injury and is suggestive of poor prognosis for meaningful neurological recovery. However neurosurgery from [facility] has been contacted. Waiting for bed availability and transfer.
--- NOTE | 2024-12-01 21:00 | PC.NURSE ---
received call from [facility] for updates, stated to call if any changes in pt condition
[2024-12-02] VITALS (106 sets, daily range): BP systolic 123–191; BP diastolic 85–125; PULSE 75–108; RESP 2–31; TEMP 37.6–37.9; O2SAT 93–100
[2024-12-02] MEDS: LABETALOL INJ 5 MG/ML VIAL 20 ML 10 MG IVP ×2 (04:08→08:29)
[2024-12-02] MEDS: fentaNYL 2,500 MCG/250 ML BAG 2,500 MCG/250 ML BAG 17.5 MCG IV ×2 (04:25→17:59)
[2024-12-02 04:28] LABS: Base Excess 2 (-3-3); HCO3 26 mEq/L (20-26); O2 Saturation 99 % (91-98); PCO2 35 mmHg (32.0-48.0); PO2 110 mmHg (83-108); pH, Arterial 7.47 (7.35-7.45)
[2024-12-02 04:45] LABS: Allen Test Performed/OK; Inspired Oxygen, FIO2 30 %; Puncture Site Left Radial
[2024-12-02] MEDS: INSULIN LISPRO (AdmeLOG) 1 UNIT/0.01 ML UNIT SC ×4 (05:26→23:21)
[2024-12-02 05:51] LABS: Basophils # (Auto) 0.0 Thou/mm3 (0.0-0.2); Basophils % (Auto) 0 % (0-2.5); Eosinophils # (Auto) 0.0 Thou/mm3 (0.0-0.5); Eosinophils % (Auto) 0 % (0-10); Hematocrit 33.9 % (36.0-46.0); Hemoglobin 11.0 g/dL (12.0-16.0); Immature Granulocytes Auto 0.05 Thou/mm3 (0.00-0.00); Lymphocytes # (Auto) 1.8 Thou/mm3 (1.0-4.8); Lymphocytes % (Auto) 17 % (10-50); Mean Corpuscular HGB Conc 32.4 g/dl (31.0-37.0); Mean Corpuscular Hemoglobin 28.6 pg (25.0-35.0); Mean Corpuscular Volume 88 fL (80-100); Monocytes # (Auto) 1.0 Thou/mm3 (0.0-0.8); Monocytes % (Auto) 10 % (0-12); Neutrophils # (Auto) 7.5 Thou/mm3 (1.8-7.7); Neutrophils % (Auto) 72 % (37-80); Nucleated Red Blood Cell # 0.00 Thou/mm3 (0.00-0.00); Nucleated Red Blood Cell % 0 /100 WBC (0); Platelet Count 103 Thou/mm3 (140-440); RDW Standard Deviation 46.9 fL (36.4-46.3); Red Blood Count 3.85 Miln/mm3 (4.00-5.20); White Blood Count 10.3 Thou/mm3 (3.6-11.0)
[2024-12-02 06:17] LABS: Alanine Aminotransferase 386 U/L (10-49); Albumin, Serum 3.5 gm/dL (3.5-5.0); Albumin/Globulin Ratio 1.8 (1.2-2.2); Alkaline Phosphatase 105 U/L (46-116); Anion Gap 13 (7-16); Aspartate Amino Transferase 153 U/L (0-34); BUN/Creatinine Ratio 23 Ratio (12-20); Bilirubin,Total 0.8 mg/dL (0.3-1.2); Blood Urea Nitrogen 16 mg/dL (9-23); Calcium 8.9 mg/dL (8.3-10.6); Calcium (Corrected) 9.3 mg/dL (8.5-10.1); Carbon Dioxide 25.9 mMol/L (20.0-31.0); Chloride 115 mMol/L (98-107); Creatinine (Component) 0.7 mg/dL (0.6-1.3); Estimated Creatinine Clearance 120.8 mL/min (>60); Globulin 2.0 gm/dL (2.3-3.5); Glucose 262 mg/dL (74-106); Magnesium 2.2 mg/dL (1.6-2.6); Osmolality,Calculated 315 (275-295); Phosphorous 2.3 mg/dL (2.4-5.1); Potassium 2.9 mMol/L (3.4-5.1); Sodium 154 mMol/L (136-145); Total Protein 5.5 gm/dL (5.7-8.2); eGFR > 60 See Note
[2024-12-02] MEDS: cefTRIAXone/D5w 1gm IV premix 1 GM/50 ML BAG IV (08:32)
[2024-12-02] MEDS: ENOXAPARIN SOD INJ 30 MG/0.3 ML SYRINGE SC (08:32)
[2024-12-02] MEDS: POTASSIUM CHLORIDE 10% 20 MEQ/15 ML UDC 60 MEQ NG (08:32)
[2024-12-02] MEDS: NAPH,KPH MBDB 1 PACKET (1.5 GM) PO (08:32)
[2024-12-02] MEDS: INSULIN DEGLUDEC 5 UNIT/0.05 ML (PER 5 UNITS) 30 UNIT SC (08:44)
[2024-12-02 10:34] LABS: Vancomycin,Trough 3.3 mcg/mL (5.0-10.0)
--- NOTE | 2024-12-02 10:58 | ESPR_ITS ---
<Statement entered by Damian Tubbs MD - 12/02/24 17:43> Patient was seen and examined in the ICU. Overnight patient received labetalol due to elevated blood pressure. She had a mild temperature of 100.8 and cooling measures were initiated. Blood pressure has improved. Urine output was around 45 cc/h. Patient has been receiving fentanyl for pain. Family was informed regarding patient's poor neurological recovery given cerebral edema. We are currently monitoring patient for possible concern for brain herniation which is likely expected to be seen after 3 to 4 days of cerebral edema. Based on neurosurgery evaluation from [facility] from the MRI films, they did not recommend any active neurosurgery intervention due to diffuse anoxic brain injury with cerebral edema with likely poor neurological recovery. EEG showed moderate diffuse slowing indicating poor neurological recovery as well. [employer] Professor explained with family regarding in detail. Family was given options regarding placing tracheostomy tube once she passes day 10 of being intubated and with that feeding tube if her brain does not herniate and they would like to continue with ventilator. At this point, family has not made up with a decision. we have been adjusting patients insulin now 15 U bid and gave extra 5 units at night with correction sliding scale 3 to optimize blood sugars. Continue with Tylenol for fever. Will follow-up with family. I discussed and supervised with the international operations manager physician who took care of this patient. I personally saw and examined the patient. I agree with most of the assessment and plan. Disclaimer: Despite multiple revisions, due to the dictation software being used, the document bellow may not be free of grammatical errors including phonetic/typographic errors. However, this does not deter from our commitment to providing health care in the patient's best interest in mind. Plan of care discussed with ceo and co founder, Dr. Zachariah Tubbs MD PGY-3 Documentation for date of: 12/02/24 Subjective Subjective Interval history: 29-year-old female with a history of poorly controlled type 1 diabetes mellitus, multiple prior admissions for DKA, polysubstance use, hypothyroidism (methamphetamine and cocaine) presented to the ED on 11/28/2024 with complaints of feeling like she was ?in DKA? (per ED documentation). She had not taken Lantus for the past 3 days due to running out, though she continued using NovoLog. She also endorsed recent cocaine use. ED Course: -Initial vitals were: BP 110/82, HR 128, RR 24, T 100F, O2 saturation 98% on room air (FiO2 60%). -Labs significant for: only lab results available at the time was CBC which was remarkable for WBC 36.8, neutrophil predominant. Urine analysis showed rare bacteria, 4+ glucose and 3+ ketones. Urine toxicology positive for methamphetamine and cocaine. -Imaging included: none -In the ED, patient was given: 3L of LR. At 1905, the patient became unresponsive and a code blue was called. She was found to be in cardiac arrest. ACLS was initiated, including chest compressions, epinephrine, sodium bicarbonate, and intubation by the ED attending. ROSC was achieved at 1925. IO access was initially obtained, followed by successful placement of a central line. Post-ROSC labs: Electrolytes: Na 131 (L), K 7.4 (H), Cl 86 (L), HCO3 <10 (L), Anion gap 35 (H). Renal: BUN 47 (H), Cr 3.6 (H), eGFR 17 (L). Glucose: 1258 (H). Other: Ca 8.0 (L), Phos 18.8 (H), Mg 3.6 (H), AST >1000 (H), ALT 483 (H), Albumin 3.3 (L), beta-hydroxybutyrate >6.4 (H). She was found to be severely acidotic and started on bicarbonate drip. She was also hypotensive and started on vasopressors (Levophed and epinephrine). Insulin drip was initiated empirically for diabetic ketoacidosis. Due to ED physician's concern for unsterilized procedure marrufo in acute setting, patient was empirically started on Vancomycin and Zosyn. Patient was admitted to the ICU for continued resuscitation and management. Interval History: 12/02/2024: Overnight, the patient was given Labetalol 10 mg once for a blood pressure of 190/112, resulting in some improvement to 171/115. Patient also had a temperature of 100.8?F, and cooling measures were initiated. By this morning, the temperature had decreased to 99.9?F. Urine output remained stable at approximately 45 cc/hour. The patient continues to receive Fentanyl 17.5 mcg for pain. 12/01/2024: Patient evaluated at bedside, shows no improvement in neurological status. Overnight, patient had bradycardia that transitioned to tachycardia, significant hypertension requiring labetalol and hydralazine IV pushes. Patient taken off pressure support due to some respiratory distress, unclear of what nature. Urine output approximately 100 cc/h throughout the night. MRI showed massive diffuse anoxic changes to brain. Repeat head CT showed concern for impending herniation, and worsening cerebral edema. This findings were discussed with the family who showed good understanding and awareness. Fentanyl was initiated for pain control. Consult placed to transfer to neurosurgical center given risk of impending herniation considering cerebral edema. ABG showed mild respiratory alkalosis, Vent settings adjusted appropriately. 11/30/2024: Overnight, the patient was transitioned to subcutaneous insulin, with IV insulin discontinued approximately one hour later. Tube feeds were initiated at a rate of 25 mL/hr. The patient's blood glucose levels have ranged from 157 to 341 mg/dL. The patient was initially started on 20 units of insulin degludec, along with a sliding scale insulin. In response to blood glucose fluctuations, the insulin degludec dose was increased to 25 units to improve control. The patient's urine output was 900 mL over the past 24 hours, averaging 100 mL/hr. A head CT performed yesterday revealed extensive infarction in the left middle cerebral artery distribution and both occipital lobes. These findings were discussed with the patient's family during their visit around 11:00 AM. In addition, Dr. Cherry was consulted to provide a more detailed explanation of the extent of the brain damage following the patient's cardiac arrest to family. 11/29/2024: Overnight, patient remained on vasopressors and bicarbonate drip overnight and was weaned off around 6AM this morning. Propofol and fentanyl have been held to allow for assessment of her underlying neurological status. She is currently afebrile with adequate urine output (~3.3L over the past 24 hours). Exam Vital Signs Temp Pulse Resp BP Pulse Ox O2 Del Method O2 Flow Rate 99.7 F 83 38 H 140/99 H 100 Mechanical Ventilation 5 12/02/24 08:00 12/02/24 10:32 12/01/24 09:15 12/02/24 10:32 12/02/24 10:32 12/02/24 03:45 11/28/24 18:50 FiO2 30 12/02/24 10:32 Narrative Exam General: Intubated. GCS 5T. Head: Normocephalic, atraumatic. Eyes: Pupils are equal and reactive to light. Anicteric. Mouth/Throat: ET tube and OG tube in place. Gag reflex present. Heart: Regular rate and rhythm, no murmurs. No JVD. Internal jugular vein central line present. Lungs: Clear to auscultation with no wheezing or crackles. Non-labored respirations, symmetric chest rise, no use of accessory muscles. Mechanical breath sounds. Abdomen: Soft and non-distended. Johnston in place. Extremities: No edema in lower extremities. Mild swelling of bilateral hands. Posterior tibial pulses are 2+ bilaterally. 2+ radial pulse bilaterally. No clubbing or cyanosis. No mottling. Soft restraints on bilateral wrists. Neuro: Decerebrate posturing of bilateral upper extremities. Plantar flexion in lower extremities. Skin: No rash. Tattoos. Objective Labs 12/03/24 06:10 12/03/24 04:47 Labs: Laboratory Results - last 24 hr 12/01/24 12/02/24 12/02/24 12:22 04:15 04:17 WBC 10.3 D RBC 3.85 L Hgb 11.0 L Hct 33.9 L MCV 88 MCH 28.6 MCHC 32.4 RDW Std Deviation 46.9 H Plt Count 103 L D Neut % (Auto) 72 Lymph % (Auto) 17 Fisher % (Auto) 10 Eos % (Auto) 0 Baso % (Auto) 0 Neut # (Auto) 7.5 Lymph # (Auto) 1.8 Fisher # (Auto) 1.0 H Eos # (Auto) 0.0 Baso # (Auto) 0.0 Immature Gran # (Auto) 0.05 H Absolute Nucleated RBC 0.00 Immature Gran % 1 H Nucleated RBC % 0 Puncture Site Left Radial Left Radial ABG pH 7.51 H 7.47 H ABG pCO2 31 L 35 ABG pO2 101 110 H ABG HCO3 24 26 ABG O2 Saturation 98 99 H ABG Base Excess 2 2 FiO2 30 30 Sodium 154 H Potassium 2.9 L Chloride 115 H Carbon Dioxide 25.9 Anion Gap 13 BUN 16 Creatinine 0.7 Estim Creat Clear Calc 120.8 eGFR > 60 BUN/Creatinine Ratio 23 H Glucose 262 H Calculated Osmolality 315 H Calcium 8.9 Corrected Calcium 9.3 Phosphorus 2.3 L Magnesium 2.2 Total Bilirubin 0.8 AST 153 H ALT 386 H Alkaline Phosphatase 105 Total Protein 5.5 L Albumin 3.5 Globulin 2.0 L Albumin/Globulin Ratio 1.8 Vancomycin Trough 12/02/24 09:40 WBC RBC Hgb Hct MCV MCH MCHC RDW Std Deviation Plt Count Neut % (Auto) Lymph % (Auto) Fisher % (Auto) Eos % (Auto) Baso % (Auto) Neut # (Auto) Lymph # (Auto) Fisher # (Auto) Eos # (Auto) Baso # (Auto) Immature Gran # (Auto) Absolute Nucleated RBC Immature Gran % Nucleated RBC % Puncture Site ABG pH ABG pCO2 ABG pO2 ABG HCO3 ABG O2 Saturation ABG Base Excess FiO2 Sodium Potassium Chloride Carbon Dioxide Anion Gap BUN Creatinine Estim Creat Clear Calc eGFR BUN/Creatinine Ratio Glucose Calculated Osmolality Calcium Corrected Calcium Phosphorus Magnesium Total Bilirubin AST ALT Alkaline Phosphatase Total Protein Albumin Globulin Albumin/Globulin Ratio Vancomycin Trough 3.3 L ABG Interpretation ABG results: 11/28/24 11/28/24 11/28/24 19:20 19:52 21:00 ABG pH 6.89 L* 7.02 L* D ABG pCO2 20 L 19 L* ABG pO2 300 H 261 H D ABG HCO3 4 L* 5 L* ABG O2 Saturation 99 H 100 H ABG Base Excess -28 L -25 L VBG pH 6.77 L VBG pCO2 35 L VBG pO2 149 H VBG Base Excess -29 L 11/29/24 11/29/24 11/29/24 01:28 04:19 12:14 ABG pH 7.36 D 7.46 H D 7.56 H D ABG pCO2 23 L 36 D 32 ABG pO2 132 H D 97 D 74 L D ABG HCO3 13 L 26 29 H ABG O2 Saturation 99 H 99 H 97 ABG Base Excess -10 L 2 6 H VBG pH VBG pCO2 VBG pO2 VBG Base Excess 11/29/24 11/29/24 11/30/24 12:21 16:06 04:46 ABG pH 7.48 H 7.45 ABG pCO2 40 35 ABG pO2 112 H D 131 H ABG HCO3 30 H 24 ABG O2 Saturation 99 H 98 ABG Base Excess 6 H 1 VBG pH 7.59 VBG pCO2 29 L VBG pO2 63 H D VBG Base Excess 6 H 12/01/24 12/01/24 12/02/24 05:05 12:22 04:15 ABG pH 7.52 H 7.51 H 7.47 H ABG pCO2 30 L 31 L 35 ABG pO2 94 D 101 110 H ABG HCO3 25 24 26 ABG O2 Saturation 97 98 99 H ABG Base Excess 2 2 2 VBG pH VBG pCO2 VBG pO2 VBG Base Excess Quality Measures Quality Measures VTE prophylaxis (lovenox) Assessment & Plan Assessment Current Active Medications: Generic Name Dose Route Start Last Admin Trade Name Freq PRN Reason Stop Dose Admin Dextrose 25 ml 11/29/24 19:04 Dextrose 50%-Water Inj 50 Ml Syringe IV 12/29/24 19:03 Q15MIN PRN BG 50-70 responsive npo pt Dextrose 50 ml 11/29/24 19:04 Dextrose 50%-Water Inj 50 Ml Syringe IV 12/29/24 19:03 Q15MIN PRN BG <50 OR BG <70 & pt unresponsive Enoxaparin Sodium 30 mg 11/29/24 07:00 12/02/24 08:32 Enoxaparin Sod Inj 30 Mg/0.3 Ml Syringe SC 12/13/24 06:59 30 mg QDAY TRUDI Administration Glucagon 1 mg 11/29/24 19:04 Glucagon Inj 1 Mg Vial IM Q15MIN PRN BG <70, and no IV access Hydromorphone HCl 1 mg 11/30/24 16:47 11/30/24 18:18 Hydromorphone Inj 2 Mg/Ml Vial IVP 12/05/24 16:46 1 mg Q4HR PRN Administration Pain or agitation Ceftriaxone Sodium/Dextrose 1 gm in 50 mls @ 100 mls/hr 11/29/24 09:00 12/02/24 08:32 Rocephin/D5w 1gm Iv Premix IV 12/06/24 08:59 100 mls/hr QDAY TRUDI Administration Fentanyl Citrate 2,500 mcg in 250 mls @ 2.5 mls/hr 12/01/24 10:56 12/02/24 07:00 Sublimaze Inj 2,500 Mcg/250 Ml Bag IV 12/06/24 10:55 175 mcg/hr .Q24H PRN 17.5 mls/hr PER PROTOCOL Titration Protocol 25 MCG/HR Vancomycin/Sodium Chloride 200 mls @ 120 mls/hr 12/02/24 11:00 Vancomycin/Ns 1 Gm Ivpb IV 12/09/24 10:59 Q8HR TRUDI Insulin Degludec 30 unit 12/02/24 09:00 12/02/24 08:44 Insulin Degludec 5 Unit/0.05 Ml (Per 5 Units) SC 01/01/25 08:59 30 unit QDAY TRUDI Administration Insulin Human Lispro 0 unit 11/30/24 00:00 12/02/24 05:26 Insulin Lispro (Admelog) 1 Unit/0.01 Ml Unit SC 12/30/24 00:00 4 unit Q6HR TRUDI Administration Protocol Labetalol HCl 10 mg 12/02/24 07:18 12/02/24 08:29 Labetalol Inj 5 Mg/Ml Vial 20 Ml IVP 12/31/24 04:14 10 mg Q6H PRN Administration SBP >170 Levothyroxine Sodium 68 mcg 11/28/24 22:25 12/02/24 08:33 Levothyroxine Inj 100 Mcg Vial IV 12/28/24 22:24 68 mcg DAILY TRUDI Administration Ondansetron HCl 4 mg 11/28/24 20:00 Ondansetron Inj 2 Mg/Ml Inj 2 Ml IVP 12/28/24 19:59 Q6H PRN NAUSEA OR VOMITING Protocol Pharmacy Consult 1 each 11/29/24 09:00 12/01/24 10:35 Pharmacy Renal Dose Adjustment 1 Ea XX 12/29/24 08:59 Not Given QDAY TRUDI Pharmacy Consult 1 each 11/30/24 09:45 Vancomycin Pharmacy To Dose 1 Each Each IV 12/30/24 09:44 QDAY PRN RX Sodium Chloride 5 ml 11/28/24 19:36 Sodium Chloride Rt 10% 15 Ml Nebu INH 12/28/24 19:35 X1 PRN SPUTUM CLEARANCE Plan 29-year-old female with poorly controlled type 1 diabetes, hypothyroidism, and polysubstance use admitted to ICU for DKA complicated by cardiac arrest, now post-ROSC. Goals of care Dr. 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 The family was thoroughly informed about the patient's current neurological status and the extent of the anoxic brain injury. The patient?s prognosis and potential next steps were discussed in detail. The following options were presented to the family: Tracheostomy and PEG tube placement for long-term respiratory and nutritional support. Detention Facility for continued care.Comfort care as an alternative, should the family decide that aggressive interventions would not align with the patient?s values or wishes. The family was provided ample time to ask questions and discuss the information presented. At this time, the family has not yet made a decision regarding the next steps in care.Neurology was consulted to provide a further detailed review and explanation of the patient?s neurological status, ensuring the family had a comprehensive understanding of the patient?s condition and prognosis. A request for evaluation from the Neuro ICU at [facility] was made via phone with transfer center. After reviewing the patient's clinical presentation and brain imaging, it was concluded that no further interventions could be offered, and there is no indication for transfer at this time. Neurology #Acute encephalopathy #Anoxic brain injury DDx: Metabolic due to diabetic ketoacidosis vs substance intoxication vs severe hyperglycemia vs metabolic acidosis vs hypovolemia. Diagnostic Test: - GCS 5T (no eye opening +1, intubated +1, withdrawal from pain +4, both pupils reactive to light). - Urine toxicology positive for methamphetamine and cocaine. Patient initially endorsed use as well. - Initial UA: rare bacteria, 4+ glucose and 3+ ketones. - Initial blood glucose: 1258. - Initial ABG: pH 6.89, pCO2 20, pO2 300, HCO3 4. - Initial BUN 57 and Cr 3.6. - CT head (11/29): Extensive areas of early infarction in left middle cerebral artery distribution and both occipital lobes. - Neurology consulted. - MRI 11/30: Diffuse anoxic brain injury - CT head 12/01: Increasing cerebral edema, concern for impending herniation. Treatment Plan: - Propofol and fentanyl has been held for over 24 hours now with no change in mentation. - Goals of care discussion with family. - Fentanyl titrated for comfort. Cardiovascular #Hypertension, acute Suspected due to beginnings of herniation in setting of diffuse cerebral edema. Initial associate bradycardia that changed to tachycardia. Overnight BP was as high as 190/115. Labetalol and hydralazine provided temporary relief. Treatment plan: - Labetalol as needed. #Sinus tachycardia (resolved) Etiologies include reactive to pain, cerebral edema, infection. Patient elevated heart rate, ranging from 100?120 overnight. Patient on nurse monitoring. Treatment plan: - Fentanyl for patient comfort. - Treat underlying infection. - desk monitor in place. #S/p cardiac arrest - ROSC in 20 minutes #Shock likely mixed hypvolemic and distributive (resolved) Likely etiologies include severe acidosis, hyperkalemia, and vasodilation. Code blue start 1904, ROSC at 1925. Patient received 2 rounds of Epinephrine during code blue. Initial rhythm noted to be PEA. Diagnostic Test: - EKG post ROSC showed sinus tachycardia. - Initial potassium level 7.4. - Initial ABG: pH 6.89, pCO2 20, pO2 300, HCO3 4. - Bedside echo showed adequate LV contractility. Treatment Plan: - Maintain electrolytes in optimized range. Repleted potassium today. Treatment Review: - Patient received several liters of IV fluids in the ER and remained hypotensive. She was started on bolus epinephrine and Levophed , which were discontinued morning o 11/29 and her blood pressure has remained stable. - Lactic acidosis has resolved with fluids. Respiratory #Acute hypoxic/hypercapneic respiratory failure #Intubated and mechanically ventilated for airway protection Diagnostic Test: - CXR: No aspiration pneumonia or pulmonary edema. - ABGs: 11/28 19:52: pH 6.89/pCO2 20/pO2 300/HCO3 4 11/28 21:00: pH 7.02/pCO2 19/pO2 261/HCO3 5 11/28 01:28: pH 7.36/pCO2 23/pO2 132/HCO3 13 11/28 04:19: pH 7.46/pCO2 36/pO2 97/HCO3 26 11/29 12:21: pH 7.56/pCO2 32/pO2 74/HCO3 29 11/30 04:46: pH 7.45/pCO2 35/pO2 131/HCO3 24 - Patient's GCS is 5T - Gag reflex intact. - Patient unable to protect airway due to mental status. Treatment Plan: - Continue ventilation: A/CMV PRVC. Settings PEEP 5.0, FiO2 30, RR 26, VT 399. - Adjust ventilation as needed. - Need GCS > 8 for extubation. GI and F/E/N #Transaminitis (resolving) Likely secondary to ischemic hepatitis. DDx: decreased perfusion, severe dehydration, hypotension, metabolic acidosis from DKA and cardiac arrest. Diagnostic Test: - AST > 1000 (significant elevation, supports hepatic injury) --> 1883 --> 1344 --> 415 --> 153. - ALT 483 --> 665 --> 842 --> 603 --> 386. - Acetaminophen < 2.0 (ruled out toxicity). - Hepatitis panel non reactive. Treatment Plan: - Monitor liver function with daily LFTs. - Adequate volume resuscitation and correction of acidosis. - Avoid hepatotoxic. #Stress ulcer prophylaxis - Continue IV Protonix. Renal #Hypernatremia Diagnostic Test: - Sodium level 149 --> 151 --> 152 --> 150 --> 153 --> 154. Treatment Plan: - Avoid hypotonic solutions, given the patient's brain injury, as can increase the risk of cerebral edema. - Continue monitoring sodium levels closely. - Reevaluate the need for hypertonic saline or other specific treatments if sodium levels continue to rise. #Hypokalemia Likely due to the insulin driving potassium into the cells. Diagnostic Test: - Potassium level of 2.9 on 10 AM labs. Treatment Plan: - Potassium 60 mEq given today. - Continue to replete as needed. #Mixed acid-base disorder (resolved) #Anion gap metabolic acidosis with non-compensatory respiratory acidosis (resolved) #Respiratory alkalosis (resolved) Diagnostic Test: - 11/28 19:52: Initial ABG: pH 6.89/pCO2 20/pO2 300/HCO3 4. Interpretation: metabolic acidosis with anion gap of 35. Using Winter's Formula (with HCO3 from CMP): Predicted pCO2 range = 21-25. The observed pCO2 of 20 is not compensatory, suggesting anion gap metabolic acidosis with non-compensatory respiratory acidosis. - Subsequent ABG (11/28 20:15): pH 7.02/pCO2 19/pO2 261/HCO3 5. Interpretation: falsely low pCO2 likely due to Kussmaul breathing. The patient's respiratory effort (deep, labored breathing) likely underestimates pCO2 and actual value is expected to be higher. - Trends in ABGs: over the following hours, the patient developed respiratory alkalosis, likely induced by insulin and bicarbonate, which can lower CO2. The ventilatory settings were adjusted to help counteract this alkalosis. RR was reduced from 22 to 15 bpm to allow CO2 retention and avoid excessive alkalosis. - Most recent AB/9 pH 7.47/pCO2 35/pO2 110/HCO3 26. Treatment Review: - pCO2 remained low despite ventilator adjustments, acetazolamide 500 mg x1 and LR given. - pH, serum bicarbonate and pCO2 as normalized. - Anion gap has closed twice. #Mixed-type lactic acidosis, in the setting of DKA (resolved) Likely multifactorial. DDx: type A from hypoperfusion/hypoxia related to hypovolemia due to DKA- associated osmotic diuresis and cardiac arrest, type B from hepatic dysfunction, stimulant/toxin use. Diagnostic test: - ABGs - metabolic acidosis with elevated anion gap and lactate. - Urine toxicology positive for methamphetamine and cocaine. - LFTs: AST > 1000, ALT 665, consistent with possible ischemic hepatitis. - Blood cultures: Strep pyogenes positive. Treatment Plan: - Monitor LFTs. - Monitor renal function and urine output. Treatment Review: - IV fluid hydration per DKA protocol. (Completed) - IV insulin infusion, titrated to close anion gap. (Completed) #Acute kidney injury (resolved) Likely prerenal secondary to dehydration and cardiac arrest. Diagnostic Test: - Baseline Cr 1.1. - Admission Cr 3.6 --> 3.5 --> 2.7 --> 1.8 --> 1.6 --> 1.3. - Urine output: 45cc/hr. Treatment Plan: - Avoid nephrotoxins. - Renally dose medications like anticoagulants and antibiotics. - Monitor I&Os. Heme #Leukocytosis (resolved) DDx: reactive vs secondary to UTI. Diagnostic Test: - WBC 36.8 --> 25.3 --> 22.2 --> 15.7 --> 10.3. - Highest temp overnight 100.8F, managed with cooling measures. Treatment Plan: -Monitor CBC and trend WBCs. Endo #Insulin-dependent diabetes mellitus type 1 #Diabetic ketoacidosis (resolved) #Hyperglycemia Secondary to noncompliance with diabetes medication. Diagnostic Test: - Beta hydroxybutyrate > 6.4 , blood glucose 1258, anion gap 35. - Refer to above for ABG results. Treatment Plan: - Insulin degludec 25 units was increased to 30 units qDaily for better blood glucose control. - Replete electrolytes as needed. Treatment Review: - Insulin ggt per DKA protocol (completed). - Transitioned to subcutaneous insulin: Insulin degludec 30 units and Insulin sliding scale. - Anion gap has closed twice. #History of hypothyroidism Diagnostic Test: - TSH 7.10, Free T4 1.03 - On Levothyroxine 88 mcg p.o. daily at home. Treatment Plan: - Continue IV Levothyroxine 68mcg. Transition to PO as mentation improves. ID #[id number] bacteremia Diagnostic Test: - Urine in the johnston has a lot of sediment and appears turbid. - Urine culture negative for UTI, ruled out. - Repeat UA positive for leukocyte esterase and WBCs. - GPC positive from both bottles. - Sputum culture grew strep pyogenes, sensitive to Rocephin. - CBC WBC 36.8 --> 25.3 --> 22.2 --> 15.7 --> 10.3. Treatment Plan: - Continue Rocephin 1g daily (11/29 -). - Start Vancomyin (11/30-). - Follow-up with repeat blood culture to document clearance. Preliminary blood culture negative. Pending speciiamtino - Will need to be treated with 14 days of antibiotics for bacteremia. Treatment Review: - Vancomycin PTD x1 given. - Ceftriaxone 2 g IV x1 loading dose. Health maintenance: Disposition: Admit to ICU for DKA management DVT prophylaxis: Enoxaparin 30mg SC daily (renally dosed) GI prophylaxis: Protonix 40mg QD Diet: Tube feeds Johnston: present Central line: right internal jugular vein Vent: A/CMV PRVC Code status: DNR Patient discussed with my senior resident Dr. Tubbs and attending, Dr. Soni. Landry Nielsen DO, PGY 1
[2024-12-02] MEDS: VANCOMYCIN/NS 1 GM IVPB 200 ML IV (11:51)
--- NOTE | 2024-12-02 12:47 | EVENTNT_ITS ---
Documentation for date of: 12/02/24 Event Note: Goals of Care Discussion & Updates Date/Time: 12/02/2024 around 12:40PM. Place: Patient's Room. People Present: - Family Members: Patient's mother and father. - Medical Team: Dr. Soni (Attending), Dr. Tubbs (Senior Resident), Dr. Solano (Senior Resident), RN Rafael Christianson, Dr. Nielsen (Reproductive Healthcare Assistant). Summary of Discussion: Dr. Soni updated the patient's family regarding the MRI and repeat CT head results. The family was informed that the Neuro ICU team at [facility] had reviewed the patient's case to ensure all options were considered. After evaluating the case and imaging, including the patient's clinical presentation and current GCS of 5T with extensor posturing, the team recommended no further interventions at this time. The family was also made aware that the peak of brain swelling typically occurs between 3 to 5 days post-injury. Two possible outcomes were discussed: either the swelling leads to brain herniation, or the swelling stabilizes, and the patient's condition remains unchanged. Additionally, the family was informed that around day 10, consideration for tracheostomy and PEG tube placement may be necessary. The family was provided ample time to ask questions and discuss the information presented. - Landry Nielsen DO, PGY-1
--- NOTE | 2024-12-02 15:38 | PD.RESPRO ---
Documentation for date of: 12/02/24 Subjective Subjective Interval history: Patient examined at bedside. BP 140/108, remains intubated and on fentanyl drip. MRI confirmed anoxic brain injury with ischemic damage. EEG was abnormal with moderate diffuse slowing. Resulting from hypoxic brain injury. These results indicate a poor prognosis in recovery. Per ICU note, neurosurgery team at [facility] has declined transfer as patient is exhibiting no signs of possible improvement. Family is considering tracheostomy and PEG tube placement if they wish to continue this management. Exam Vital Signs Temp Pulse Resp BP Pulse Ox O2 Del Method O2 Flow Rate 99.7 F 95 38 H 129/95 H 100 Mechanical Ventilation 5 12/02/24 08:00 12/02/24 15:15 12/01/24 09:15 12/02/24 15:15 12/02/24 15:15 12/02/24 03:45 11/28/24 18:50 FiO2 30 12/02/24 14:25 Narrative Exam General: Intubated. GCS 5T. Head: Normocephalic, atraumatic. Eyes: Pupils are equal and reactive to light. Anicteric. Corneal reflex is present. Mouth/Throat: ET tube and OG tube in place. Heart: Regular rate and rhythm, no murmurs. No JVD. Internal jugular vein central line present. Lungs: Clear to auscultation with no wheezing or crackles. Non-labored respirations, symmetric chest rise, no use of accessory muscles. Mechanical breath sounds. Abdomen: Soft and non-distended. [place] in place. Extremities: No edema in lower extremities. Mild swelling of bilateral hands. Posterior tibial pulses are 2+ bilaterally. 2+ radial pulse bilaterally. No clubbing or cyanosis. No mottling. Soft restraints on bilateral wrists. Neuro: Decerebrate posturing of bilateral upper extremities. Plantar flexion in lower extremities. Skin: No rash. Tattoos. Objective Labs 12/04/24 17:44 12/04/24 17:44 Labs: Laboratory Results - last 24 hr 12/02/24 12/02/24 12/02/24 04:15 04:17 09:40 WBC 10.3 D RBC 3.85 L Hgb 11.0 L Hct 33.9 L MCV 88 MCH 28.6 MCHC 32.4 RDW Std Deviation 46.9 H Plt Count 103 L D Neut % (Auto) 72 Lymph % (Auto) 17 Drew % (Auto) 10 Eos % (Auto) 0 Baso % (Auto) 0 Neut # (Auto) 7.5 Lymph # (Auto) 1.8 Drew # (Auto) 1.0 H Eos # (Auto) 0.0 Baso # (Auto) 0.0 Immature Gran # (Auto) 0.05 H Absolute Nucleated RBC 0.00 Immature Gran % 1 H Nucleated RBC % 0 Puncture Site Left Radial ABG pH 7.47 H ABG pCO2 35 ABG pO2 110 H ABG HCO3 26 ABG O2 Saturation 99 H ABG Base Excess 2 FiO2 30 Sodium 154 H Potassium 2.9 L Chloride 115 H Carbon Dioxide 25.9 Anion Gap 13 BUN 16 Creatinine 0.7 Estim Creat Clear Calc 120.8 eGFR > 60 BUN/Creatinine Ratio 23 H Glucose 262 H Calculated Osmolality 315 H Calcium 8.9 Corrected Calcium 9.3 Phosphorus 2.3 L Magnesium 2.2 Total Bilirubin 0.8 AST 153 H ALT 386 H Alkaline Phosphatase 105 Total Protein 5.5 L Albumin 3.5 Globulin 2.0 L Albumin/Globulin Ratio 1.8 Vancomycin Trough 3.3 L ABG Interpretation ABG results: 11/28/24 11/28/24 11/28/24 19:20 19:52 21:00 ABG pH 6.89 L* 7.02 L* D ABG pCO2 20 L 19 L* ABG pO2 300 H 261 H D ABG HCO3 4 L* 5 L* ABG O2 Saturation 99 H 100 H ABG Base Excess -28 L -25 L VBG pH 6.77 L VBG pCO2 35 L VBG pO2 149 H VBG Base Excess -29 L 11/29/24 11/29/24 11/29/24 01:28 04:19 12:14 ABG pH 7.36 D 7.46 H D 7.56 H D ABG pCO2 23 L 36 D 32 ABG pO2 132 H D 97 D 74 L D ABG HCO3 13 L 26 29 H ABG O2 Saturation 99 H 99 H 97 ABG Base Excess -10 L 2 6 H VBG pH VBG pCO2 VBG pO2 VBG Base Excess 11/29/24 11/29/24 11/30/24 12:21 16:06 04:46 ABG pH 7.48 H 7.45 ABG pCO2 40 35 ABG pO2 112 H D 131 H ABG HCO3 30 H 24 ABG O2 Saturation 99 H 98 ABG Base Excess 6 H 1 VBG pH 7.59 VBG pCO2 29 L VBG pO2 63 H D VBG Base Excess 6 H 12/01/24 12/01/24 12/02/24 05:05 12:22 04:15 ABG pH 7.52 H 7.51 H 7.47 H ABG pCO2 30 L 31 L 35 ABG pO2 94 D 101 110 H ABG HCO3 25 24 26 ABG O2 Saturation 97 98 99 H ABG Base Excess 2 2 2 VBG pH VBG pCO2 VBG pO2 VBG Base Excess Quality Measures Quality Measures VTE prophylaxis (lovenox) Assessment & Plan Assessment Current Active Medications: Generic Name Dose Route Start Last Admin Trade Name Freq PRN Reason Stop Dose Admin Dextrose 25 ml 11/29/24 19:04 Dextrose 50%-Water Inj 50 Ml Syringe IV 12/29/24 19:03 Q15MIN PRN BG 50-70 responsive npo pt Dextrose 50 ml 11/29/24 19:04 Dextrose 50%-Water Inj 50 Ml Syringe IV 12/29/24 19:03 Q15MIN PRN BG <50 OR BG <70 & pt unresponsive Enoxaparin Sodium 30 mg 11/29/24 07:00 12/02/24 08:32 Enoxaparin Sod Inj 30 Mg/0.3 Ml Syringe SC 12/13/24 06:59 30 mg QDAY TRUDI Administration Glucagon 1 mg 11/29/24 19:04 Glucagon Inj 1 Mg Vial IM Q15MIN PRN BG <70, and no IV access Hydromorphone HCl 1 mg 11/30/24 16:47 11/30/24 18:18 Hydromorphone Inj 2 Mg/Ml Vial IVP 12/05/24 16:46 1 mg Q4HR PRN Administration Pain or agitation Ceftriaxone Sodium/Dextrose 1 gm in 50 mls @ 100 mls/hr 11/29/24 09:00 12/02/24 08:32 Rocephin/D5w 1gm Iv Premix IV 12/06/24 08:59 100 mls/hr QDAY TRUDI Administration Fentanyl Citrate 2,500 mcg in 250 mls @ 2.5 mls/hr 12/01/24 10:56 12/02/24 14:00 Sublimaze Inj 2,500 Mcg/250 Ml Bag IV 12/06/24 10:55 175 mcg/hr .Q24H PRN 17.5 mls/hr PER PROTOCOL Titration Protocol 25 MCG/HR Vancomycin/Sodium Chloride 200 mls @ 120 mls/hr 12/02/24 11:00 12/02/24 13:32 Vancomycin/Ns 1 Gm Ivpb IV 12/09/24 10:59 Infused Q8HR TRUDI Infusion Insulin Degludec 15 unit 12/03/24 09:00 Insulin Degludec 5 Unit/0.05 Ml (Per 5 Units) SC 01/02/25 08:59 BID TRUDI Insulin Degludec 5 unit 12/02/24 21:00 Insulin Degludec 5 Unit/0.05 Ml (Per 5 Units) SC 12/02/24 21:01 X1 ONE Insulin Human Lispro 0 unit 11/30/24 00:00 12/02/24 11:57 Insulin Lispro (Admelog) 1 Unit/0.01 Ml Unit SC 12/30/24 00:00 4 unit Q6HR TRUDI Administration Protocol Labetalol HCl 10 mg 12/02/24 07:18 12/02/24 08:29 Labetalol Inj 5 Mg/Ml Vial 20 Ml IVP 12/31/24 04:14 10 mg Q6H PRN Administration SBP >170 Levothyroxine Sodium 68 mcg 11/28/24 22:25 12/02/24 08:33 Levothyroxine Inj 100 Mcg Vial IV 12/28/24 22:24 68 mcg DAILY TRUDI Administration Ondansetron HCl 4 mg 11/28/24 20:00 Ondansetron Inj 2 Mg/Ml Inj 2 Ml IVP 12/28/24 19:59 Q6H PRN NAUSEA OR VOMITING Protocol Pharmacy Consult 1 each 11/29/24 09:00 12/02/24 12:33 Pharmacy Renal Dose Adjustment 1 Ea XX 12/29/24 08:59 Not Given QDAY [facility] Pharmacy Consult 1 each 11/30/24 09:45 Vancomycin Pharmacy To Dose 1 Each Each IV 12/30/24 09:44 QDAY PRN RX Sodium Chloride 5 ml 11/28/24 19:36 Sodium Chloride Rt 10% 15 Ml Nebu INH 12/28/24 19:35 X1 PRN SPUTUM CLEARANCE Plan Kiana Main is 29 yr female with PMH of type 1 diabetes, polysubstance use, poor compliance with her diabetes who was admitted to ICU for DKA. Labs reflected hyperkalemia 7.4, UTOX positive for methamphetamine and cocaine. CT head showed MCA infarct in MCA distribution involving bilateral occipital lobes. #Hypoxic brain injury #MCA infarct #Cerebral edema CT brain showed massive infarction in MCA distribution involving bilateral occipital lobes. Patient had down time ~20 minutes. Potassium was 7.4 and acidosis likely contributing to arrest and subsequently hypoxic brain injury. Patient has normal corneal reflex, draws from pain stimuli. MRI confirmed anoxic brain injury with ischemic damage. EEG was abnormal with moderate diffuse slowing. Resulting from hypoxic brain injury. -Neurologic monitoring with checks Q 1-2 hours - Avoid hyperthermia - Seizure precaution - Supportive management - Goals of care discussion with family for PEG/trach -IV labetalol 10mg prn for SBP >170 #S/p cardiac arrest - ROSC in 20 minutes #Shock likely mixed hypvolemic and distributive (resolved) #Acute hypoxic/hypercapneic respiratory failure #Intubated and mechanically ventilated for airway protection #Transaminitis #Stress ulcer prophylaxis #Hypernatremia #Mixed acid-base disorder (resolved) #Anion gap metabolic acidosis with non-compensatory respiratory acidosis (resolved) #Respiratory alkalosis (resolved) #Mixed-type lactic acidosis, in the setting of DKA (resolved) #Acute kidney injury (improving) #Leukocytosis (downtrending) #Insulin-dependent diabetes mellitus type 1 #Diabetic ketoacidosis (resolved) #Hyperglycemia #History of hypothyroidism #Urinary tract infection #GPC bacteremia Primary care team to manage above conditions and ongoing care needs. The patient's management plan was discussed with my attending physician Dr. Cherry. Joy Arvizu, PGY-2 Attending Provider Attestation/Addendum I have seen and examined the patient at the bedside and I agreed with resident's findings, assessment and plan of care. Patient with severe hypoxic brain injury clinically and radiologically and confirmed with EEG suggestive of poor prognosis. Family is trying to make the decision.
--- NOTE | 2024-12-02 16:04 | ESPR_ITS ---
Documentation for date of: 12/02/24 Subjective Subjective Interval history: This is a 29-year-old female who presents to the ER yesterday for DKA. She underwent an arrest with CPR administered for approximately 20 minutes prior to ROSC. ROSC was established the patient was intubated and a central line was placed. She was given 3 L of fluids in the ER. She was noted to be severely acidotic. She was started on a bicarb. She was hypotensive and started on Levophed and epinephrine. Her vasopressors were weaned off this morning around 6 AM. Her bicarb drip was also stopped. This morning her labs look improved. Her propofol and fentanyl have been placed on hold to assess her underlying neurological status. She is currently afebrile with good urinary output. It is noted that her UTOX is positive for meth and cocaine. 11/30- no acute overnight events, some movement of b/l UE today, good UOP, afebrile 12/02- no acute overnight events, cont to have intermittent spikes of HTN, good UOP, low grade temp Critical Care Note Critical care time (min.): 43 Exam Vital Signs Temp Pulse Resp BP Pulse Ox O2 Del Method O2 Flow Rate 99.7 F 93 38 H 141/96 H 100 Mechanical Ventilation 5 12/02/24 08:00 12/02/24 15:45 12/01/24 09:15 12/02/24 15:45 12/02/24 15:45 12/02/24 03:45 11/28/24 18:50 FiO2 30 12/02/24 14:25 Narrative Exam Gen- ill appearing, GCS4T, HEENT- NC/AT, mucosa hydrated, sclera anicteric, PERRL, ETT/OGT in place Chest- LCTAB, HRRR, tachycardic, Abd- s/nt/bs+ Ext- edema 1+ LE, extensor posturing, no mottling, no clubbing, Drips fent Vent AC VC Physical Exam Completion Physical Exam Complete?: Yes Objective - International Affairs Vice President Labs 12/02/24 04:17 12/02/24 04:17 Labs: Laboratory Results - last 24 hr 12/02/24 12/02/24 12/02/24 04:15 04:17 09:40 WBC 10.3 D RBC 3.85 L Hgb 11.0 L Hct 33.9 L MCV 88 MCH 28.6 MCHC 32.4 RDW Std Deviation 46.9 H Plt Count 103 L D Neut % (Auto) 72 Lymph % (Auto) 17 [place] % (Auto) 10 Eos % (Auto) 0 Baso % (Auto) 0 Neut # (Auto) 7.5 Lymph # (Auto) 1.8 Mobile # (Auto) 1.0 H Eos # (Auto) 0.0 Baso # (Auto) 0.0 Immature Gran # (Auto) 0.05 H Absolute Nucleated RBC 0.00 Immature Gran % 1 H Nucleated RBC % 0 Puncture Site Left Radial ABG pH 7.47 H ABG pCO2 35 ABG pO2 110 H ABG HCO3 26 ABG O2 Saturation 99 H ABG Base Excess 2 FiO2 30 Sodium 154 H Potassium 2.9 L Chloride 115 H Carbon Dioxide 25.9 Anion Gap 13 BUN 16 Creatinine 0.7 Estim Creat Clear Calc 120.8 eGFR > 60 BUN/Creatinine Ratio 23 H Glucose 262 H Calculated Osmolality 315 H Calcium 8.9 Corrected Calcium 9.3 Phosphorus 2.3 L Magnesium 2.2 Total Bilirubin 0.8 AST 153 H ALT 386 H Alkaline Phosphatase 105 Total Protein 5.5 L Albumin 3.5 Globulin 2.0 L Albumin/Globulin Ratio 1.8 Vancomycin Trough 3.3 L Assessment & Plan Additional Assessment Additional Assessment: In summary this is 29-year-old female admitted to the ICU status post arrest a/p [employer] off sedation x 72hrs hypoxic brain injury- worsening edema on repeat HCT and MRI - d/w neurology -> poor prognosis - EEG done and results noted - MRI CV s/p cardiac arrest-ROSC achieved after 20 minutes and initial rhythm was noted to be PEA. Patient arrested in the setting of severe acidosis as well as hyperkalemia which are both likely underlying etiologies for her arrest. Shock- resolved Resp Acute hypoxic/hypercapneic resp failure- currently intubated and on MV, fu on ABG and CXR, adjust vent as needed - unable to ween further - back on AC VC - hyperventilating for increased ICP - sputum cx growing GAS-> ceftriaxone Renal LEONA- likely prerenal - avoid nephrotoxins - monitor i/os - trending back down today AGMA- resolved HyperNa- given current brain injury will not correct at this time - avoid hypotonic solutions if possible - stable HypoK- replete PO - replete once more GI GI proph- PPI Ischemic hepatitis- 2/2 code blue and down time, pt does have a h/o drug use therefore will also check a viral hep panel - trending back down - continues to improve Endo DKA- now resolved - on subq lantus and SSI - FS q6hr Heme Leukocytosis- reactive v 2/2 underlying UTI - trending back down Anemia- poss dilutional given significant IVF that she has received - no obvious bleeding DVT proph- lovenox ID ? UTI- urine in [place] has a lot of sediment and appears turbid. currently on abx and will await cx Bacteremia- 2/2 bottles with GPC-> micrococcus, currently on abx, - fu with repeat bcx in AM - awaiting speciation - stop Vanc case d/w ICU team d/w family at bedside Neurology consulted labs, imaging, records reviewed ~ 43ccmin required for eval, exam, review, intervention, discussion and formulation of POC for this critically ill pt s/p cardiac arrest Provider Notation Provider Notation: Although this document has been carefully reviewed, there may still be some phonetic and other typographical errors. These errors are purely grammatical due to imperfections in the software program and should not be construed in any way to compromise the substance of the patient's medical care during this visit. Thank you for the opportunity and privilege in assisting you with this patient's care and management.
--- NOTE | 2024-12-02 17:42 | PD.RESPROC ---
PROCEDURES: Procedure Date / Time 11/29/24 ~11:00 AM Central Line Placement Right IJ: Indication(s): cardiac arrest Time out done, and the following verified: correct patient, side and site, procedure, patient position and implants and/or equipment Patient placed on monitor/pulse ox: Yes Hand Hygiene: scrub, soap & water and alcohol-based hand rub Max Sterile Barrier Techniques used: cap, mask, sterile gown, sterile gloves and sterile full body drape Central line prep: Povidone-Iodine 1%, Chlorhexidine scrub and sterile drapes applied Local anesthesia used: lidocaine 1% Amount of anesthesia used (mL): 5 Ultrasound used for placement: Yes Sterile Technique if Ultrasound used, including sterile gel: yes Central line lumen inserted: triple Post procedure: sutured in place, good blood return, all ports aspirated, flushed, capped and sterile dressing applied Post procedure x-ray: tip of catheter in good position and no pneumothorax seen EBL(ml): 5 Complications: none Procedure comment: Right IJV central Line placement A time out was performed. My hands were washed immediately prior to the procedure. I wore a surgical cap, mask with protective eyewear, full gown and sterile gloves throughout the procedure. The patient was placed in Trendelenburg position. Right chest region was prepped using chlorhexidine scrub and draped in sterile fashion using a full drape and sterile probe cover and sterile gel employed. The medial and lateral heads of the sternocleidomastoid muscle were identified as was the carotid pulse. The Right Internal Jugular vein was identified using the ultrasound. Anesthesia was achieved over the vein using 1% lidocaine. Using real-time out of plane guidance, the introducer needle was inserted into the right Internal Jugular vein under direct ultrasound visualization. Venous blood was withdrawn. The syringe was removed and a guidewire was advanced into the introducer needle. The guidewire was visualized in the Internal Jugular Vein by ultrasound. A small incision was made at the skin surface with a scalpel and the introducer needle was exchanged for a dilator over the guidewire. After appropriate dilation was obtained, the dilator was exchanged over the wire for a central venous catheter. The wire was removed and the catheter was sutured in place. A sterile sorbaview shield was placed over the catheter at the insertion site. The patient tolerated the procedure without any hemodynamic compromise. At time of procedure completion, all ports aspirated and flushed properly. Post-procedure chest x-ray is pending at this time. Estimated blood loss is <5cc. Procedure performed under the supervision of ICU attending,Dr Zachariah Nielsen, PGY-1
[2024-12-02] MEDS: INSULIN DEGLUDEC 5 UNIT/0.05 ML (PER 5 UNITS) SC (20:30)
[2024-12-03] VITALS (101 sets, daily range): BP systolic 113–154; BP diastolic 75–110; PULSE 70–254; RESP 15–28; TEMP 37.1–37.7; O2SAT 99–100; BMI 31.1
[2024-12-03 04:35] LABS: Base Excess 5 (-3-3); HCO3 27 mEq/L (20-26); Inspired Oxygen, FIO2 21 %; O2 Saturation 98 % (91-98); PCO2 32 mmHg (32.0-48.0); PO2 102 mmHg (83-108); pH, Arterial 7.54 (7.35-7.45)
[2024-12-03 04:36] LABS: Allen Test Performed/OK; Puncture Site Right Radial
[2024-12-03 05:30] LABS: Alanine Aminotransferase 249 U/L (10-49); Albumin, Serum 3.3 gm/dL (3.5-5.0); Albumin/Globulin Ratio 1.7 (1.2-2.2); Alkaline Phosphatase 94 U/L (46-116); Anion Gap 11 (7-16); Aspartate Amino Transferase 90 U/L (0-34); BUN/Creatinine Ratio 23 Ratio (12-20); Bilirubin,Total 0.4 mg/dL (0.3-1.2); Blood Urea Nitrogen 18 mg/dL (9-23); Calcium 8.5 mg/dL (8.3-10.6); Calcium (Corrected) 9.1 mg/dL (8.5-10.1); Carbon Dioxide 27.2 mMol/L (20.0-31.0); Chloride 120 mMol/L (98-107); Creatinine (Component) 0.8 mg/dL (0.6-1.3); Estimated Creatinine Clearance 105.7 mL/min (>60); Globulin 2.0 gm/dL (2.3-3.5); Glucose 120 mg/dL (74-106); Magnesium 2.5 mg/dL (1.6-2.6); Osmolality,Calculated 315 (275-295); Phosphorous 2.7 mg/dL (2.4-5.1); Potassium 3.6 mMol/L (3.4-5.1); Sodium 158 mMol/L (136-145); Total Protein 5.3 gm/dL (5.7-8.2); eGFR > 60 See Note
[2024-12-03 06:13] LABS: Basophils # (Auto) 0.0 Thou/mm3 (0.0-0.2); Basophils % (Auto) 0 % (0-2.5); Eosinophils # (Auto) 0.2 Thou/mm3 (0.0-0.5); Eosinophils % (Auto) 1 % (0-10); Hematocrit 32.8 % (36.0-46.0); Hemoglobin 10.6 g/dL (12.0-16.0); Immature Granulocytes Auto 0.07 Thou/mm3 (0.00-0.00); Lymphocytes # (Auto) 2.1 Thou/mm3 (1.0-4.8); Lymphocytes % (Auto) 14 % (10-50); Mean Corpuscular HGB Conc 32.3 g/dl (31.0-37.0); Mean Corpuscular Hemoglobin 29.0 pg (25.0-35.0); Mean Corpuscular Volume 90 fL (80-100); Monocytes # (Auto) 1.3 Thou/mm3 (0.0-0.8); Monocytes % (Auto) 8 % (0-12); Neutrophils # (Auto) 11.7 Thou/mm3 (1.8-7.7); Neutrophils % (Auto) 76 % (37-80); Nucleated Red Blood Cell # 0.00 Thou/mm3 (0.00-0.00); Nucleated Red Blood Cell % 0 /100 WBC (0); Platelet Count 124 Thou/mm3 (140-440); RDW Standard Deviation 48.6 fL (36.4-46.3); Red Blood Count 3.66 Miln/mm3 (4.00-5.20); White Blood Count 15.4 Thou/mm3 (3.6-11.0)
--- NOTE | 2024-12-03 08:10 | XR_ITS ---
Examination: CT brain head without contrast. 2-D sagittal coronal reconstructions Date and time of exam: December 03, 2024, 0912 hours, comparison December 01, 2024 INDICATIONS: Status post cardiopulmonary arrest this week, severe generalized cerebral edema on CT brain scan December 01, 2024 CTDI: vol (mGy): 51 DLP: (mGycm): 1036 Technique: Multiple CT axial sections of the brain have been obtained, 5 mm slice thickness. Contrast has not been administered. 2-D sagittal, coronal reconstructions have been obtained Low dose protocols were performed. One or more of the following dose reduction techniques were used; automated exposure control, adjustment of the mA and/or KV according to patient size, use of iterative reconstruction technique. Findings: Again noted extensive areas of ischemic anoxic change including left frontal parietal lobe right frontal lobe left basal ganglia right and left occipital lobes and even the cerebellar hemispheres Ventricles are not enlarged. No mass effect upon the ventricular system The Dima structures are intact IMPRESSION: No significant change in extensive anoxic ischemic change throughout the brain without midline shift No acute hemorrhage
[2024-12-03] MEDS: fentaNYL 2,500 MCG/250 ML BAG 2,500 MCG/250 ML BAG 17.5 MCG IV ×2 (08:17→23:00)
--- NOTE | 2024-12-03 09:10 | ESPR_ITS ---
<Statement entered by Damian Tubbs MD - 12/03/24 16:58> Patient was seen and examined in the ICU. No acute overnight events reported.overnight, patient received additional dose of degludec 5 units due to elevated blood sugars. Patient did not had elevated blood pressures overnight. Will continue with fentanyl for pain management. Tube feeds were increased per dietitian recommendations. Repeat CT brain showed no significant change in extensive anoxic ischemic change throughout the brain without midline shift. No acute hemorrhage was seen. Family was asked if they would like to have neurology present during goals of care discussion however they opted that discussion can be done by ICU team. Family was present at the bedside and goals of care discussion was performed. They were explained that given the fact that there is no change in anoxic ischemic injury therefore patient has poor neurological recovery. Family was given options for proceeding with tracheostomy and PEG tube if they would like to continue with her current condition or comfort care to let her go peacefully in the hospital. Family opted for comfort care however they wish to start comfort care measures tomorrow once patient's sister arrived from [facility]. We graciously accepted patient's family wishes. Patient Sister will be arriving tomorrow morning around 10:00 when we will likely start comfort care measures. We explained the family that it is unpredictable for what time she will pass however will let nature take its course and will try to make patient comfortable as much as possible. We Will only continue with degludec, stop all lab draws, continue with Rocephin for now focusing on comfort of patient and DC meds tomorrow. RN is aware of the plan. Neurology was updated regarding goals of care discussion. Update at 14;00 Organ donor network contacted patients family if they would opt for organ donation for which family showed positive response and want to proceed with it. Organ donation network sent details including couple of lab work to be ordered.Holding off comfort until tuesday 12/05 for organ donation. All labs and orders were reviewed. I discussed and supervised with the international affairs vice president physician who took care of this patient. I personally saw and examined the patient. I agree with most of the assessment and plan. Disclaimer: Despite multiple revisions, due to the dictation software being used, the document bellow may not be free of grammatical errors including phonetic/typographic errors. However, this does not deter from our commitment to providing health care in the patient's best interest in mind. Plan of care discussed with dental service chief, Dr. Zachariah Tubbs MD PGY-3 Documentation for date of: 12/03/24 Subjective Subjective Interval history: 29-year-old female with a history of poorly controlled type 1 diabetes mellitus, multiple prior admissions for DKA, polysubstance use, hypothyroidism (methamphetamine and cocaine) presented to the ED on 11/28/2024 with complaints of feeling like she was ?in DKA? (per ED documentation). She had not taken Lantus for the past 3 days due to running out, though she continued using NovoLog. She also endorsed recent cocaine use. ED Course: -Initial vitals were: BP 110/82, HR 128, RR 24, T 100F, O2 saturation 98% on room air (FiO2 60%). -Labs significant for: only lab results available at the time was CBC which was remarkable for WBC 36.8, neutrophil predominant. Urine analysis showed rare bacteria, 4+ glucose and 3+ ketones. Urine toxicology positive for methamphetamine and cocaine. -Imaging included: none -In the ED, patient was given: 3L of LR. At 1905, the patient became unresponsive and a code blue was called. She was found to be in cardiac arrest. ACLS was initiated, including chest compressions, epinephrine, sodium bicarbonate, and intubation by the ED attending. ROSC was achieved at 1925. IO access was initially obtained, followed by successful placement of a central line. Post-ROSC labs: Electrolytes: Na 131 (L), K 7.4 (H), Cl 86 (L), HCO3 <10 (L), Anion gap 35 (H). Renal: BUN 47 (H), Cr 3.6 (H), eGFR 17 (L). Glucose: 1258 (H). Other: Ca 8.0 (L), Phos 18.8 (H), Mg 3.6 (H), AST >1000 (H), ALT 483 (H), Albumin 3.3 (L), beta-hydroxybutyrate >6.4 (H). She was found to be severely acidotic and started on bicarbonate drip. She was also hypotensive and started on vasopressors (Levophed and epinephrine). Insulin drip was initiated empirically for diabetic ketoacidosis. Due to ED physician's concern for unsterilized procedure marrufo in acute setting, patient was empirically started on Vancomycin and Zosyn. Patient was admitted to the ICU for continued resuscitation and management. Interval History: 12/03/2024: The organ procurement organization has contacted the patient?s family, who have provided informed consent for organ donation. Comfort care measures are scheduled to begin Friday afternoon. Overnight, patient received 5 units of insulin degludec at 2030 for improved blood glucose control. Glucose readings were 222 and 103, showing improvement from prior nights when levels were in the 300s. The insulin degludec regimen will continue as a split dose of 15 units BID (total 30 units daily). Patient had 3 loose bowel movements. Maximum temperature was 100.4?F, no tylenol was given, and the temperature decreased to 99.1?F by morning. Urine output was 25 cc/hr overnight. A 1L normal saline bolus was administered for suspected dehydration. Urine output will be reassessed post-bolus. Pain is managed with fentanyl at 1.5 mcg. Tube feeding rate is currently 25 cc/hr. Discussed with dietitian plan to advance rate by 5 cc every 8 hours to a goal of 45 cc/hr. No free water flushes at this time. 12/02/2024: Overnight, the patient was given Labetalol 10 mg once for a blood pressure of 190/112, resulting in some improvement to 171/115. Patient also had a temperature of 100.8?F, and cooling measures were initiated. By this morning, the temperature had decreased to 99.9?F. Urine output remained stable at approximately 45 cc/hour. The patient continues to receive Fentanyl 17.5 mcg for pain. 12/01/2024: Patient evaluated at bedside, shows no improvement in neurological status. Overnight, patient had bradycardia that transitioned to tachycardia, significant hypertension requiring labetalol and hydralazine IV pushes. Patient taken off pressure support due to some respiratory distress, unclear of what nature. Urine output approximately 100 cc/h throughout the night. MRI showed massive diffuse anoxic changes to brain. Repeat head CT showed concern for impending herniation, and worsening cerebral edema. This findings were discussed with the family who showed good understanding and awareness. Fentanyl was initiated for pain control. Consult placed to transfer to neurosurgical center given risk of impending herniation considering cerebral edema. ABG showed mild respiratory alkalosis, Vent settings adjusted appropriately. 11/30/2024: Overnight, the patient was transitioned to subcutaneous insulin, with IV insulin discontinued approximately one hour later. Tube feeds were initiated at a rate of 25 mL/hr. The patient's blood glucose levels have ranged from 157 to 341 mg/dL. The patient was initially started on 20 units of insulin degludec, along with a sliding scale insulin. In response to blood glucose fluctuations, the insulin degludec dose was increased to 25 units to improve control. The patient's urine output was 900 mL over the past 24 hours, averaging 100 mL/hr. A head CT performed yesterday revealed extensive infarction in the left middle cerebral artery distribution and both occipital lobes. These findings were discussed with the patient's family during their visit around 11:00 AM. In addition, Dr. Cherry was consulted to provide a more detailed explanation of the extent of the brain damage following the patient's cardiac arrest to family. 11/29/2024: Overnight, patient remained on vasopressors and bicarbonate drip overnight and was weaned off around 6AM this morning. Propofol and fentanyl have been held to allow for assessment of her underlying neurological status. She is currently afebrile with adequate urine output (~3.3L over the past 24 hours). Exam Vital Signs Temp Pulse Resp BP Pulse Ox O2 Del Method O2 Flow Rate 98.8 F 92 38 H 125/88 H 99 Mechanical Ventilation 5 12/03/24 05:30 12/03/24 07:15 12/01/24 09:15 12/03/24 07:15 12/03/24 07:15 12/03/24 06:30 11/28/24 18:50 FiO2 12/03/24 06:30 Narrative Exam Physical Exam General: Intubated. GCS 5T. Head: Normocephalic, atraumatic. Eyes: Left pupil is equal and reactive to light, sluggish. Right pupil not reactive to light. Anicteric. Mouth/Throat: ET tube and OG tube in place. Gag reflex present. Heart: Regular rate and rhythm, no murmurs. No JVD. Right Internal jugular vein central line present. Lungs: Clear to auscultation with no wheezing or crackles. Non-labored respirations, symmetric chest rise, no use of accessory muscles. Mechanical breath sounds. Abdomen: Soft and non-distended. Johnston in place. Extremities: No edema in lower extremities. Mild swelling of bilateral hands. Posterior tibial pulses are 2+ bilaterally. 2+ radial pulse bilaterally. No clubbing or cyanosis. No mottling. Soft restraints on bilateral wrists. Neuro: No flexion or extension to pain. Skin: No rash. Tattoos. Objective Labs 12/03/24 06:10 12/03/24 04:47 Labs: Laboratory Results - last 24 hr 12/02/24 12/03/24 12/03/24 09:40 04:32 04:47 WBC RBC Hgb Hct MCV MCH MCHC RDW Std Deviation Plt Count Neut % (Auto) Lymph % (Auto) [place] % (Auto) Eos % (Auto) Baso % (Auto) Neut # (Auto) Lymph # (Auto) [place] # (Auto) Eos # (Auto) Baso # (Auto) Immature Gran # (Auto) Absolute Nucleated RBC Immature Gran % Nucleated RBC % Puncture Site Right Radial ABG pH 7.54 H ABG pCO2 32 ABG pO2 102 ABG HCO3 27 H ABG O2 Saturation 98 ABG Base Excess 5 H FiO2 21 Sodium 158 H Potassium 3.6 D Chloride 120 H Carbon Dioxide 27.2 Anion Gap 11 BUN 18 Creatinine 0.8 Estim Creat Clear Calc 105.7 eGFR > 60 BUN/Creatinine Ratio 23 H Glucose 120 H D Calculated Osmolality 315 H Calcium 8.5 Corrected Calcium 9.1 Phosphorus 2.7 Magnesium 2.5 Total Bilirubin 0.4 AST 90 H ALT 249 H Alkaline Phosphatase 94 Total Protein 5.3 L Albumin 3.3 L Globulin 2.0 L Albumin/Globulin Ratio 1.7 Vancomycin Trough 3.3 L 12/03/24 06:10 WBC 15.4 H D RBC 3.66 L Hgb 10.6 L Hct 32.8 L MCV 90 MCH 29.0 MCHC 32.3 RDW Std Deviation 48.6 H Plt Count 124 L D Neut % (Auto) 76 Lymph % (Auto) 14 Sol[place] % (Auto) 8 Eos % (Auto) 1 Baso % (Auto) 0 Neut # (Auto) 11.7 H Lymph # (Auto) 2.1 [place] # (Auto) 1.3 H Eos # (Auto) 0.2 Baso # (Auto) 0.0 Immature Gran # (Auto) 0.07 H Absolute Nucleated RBC 0.00 Immature Gran % 1 H Nucleated RBC % 0 Puncture Site ABG pH ABG pCO2 ABG pO2 ABG HCO3 ABG O2 Saturation ABG Base Excess FiO2 Sodium Potassium Chloride Carbon Dioxide Anion Gap BUN Creatinine Estim Creat Clear Calc eGFR BUN/Creatinine Ratio Glucose Calculated Osmolality Calcium Corrected Calcium Phosphorus Magnesium Total Bilirubin AST ALT Alkaline Phosphatase Total Protein Albumin Globulin Albumin/Globulin Ratio Vancomycin Trough ABG Interpretation ABG results: 11/28/24 11/28/24 11/28/24 19:20 19:52 21:00 ABG pH 6.89 L* 7.02 L* D ABG pCO2 20 L 19 L* ABG pO2 300 H 261 H D ABG HCO3 4 L* 5 L* ABG O2 Saturation 99 H 100 H ABG Base Excess -28 L -25 L VBG pH 6.77 L VBG pCO2 35 L VBG pO2 149 H VBG Base Excess -29 L 11/29/24 11/29/24 11/29/24 01:28 04:19 12:14 ABG pH 7.36 D 7.46 H D 7.56 H D ABG pCO2 23 L 36 D 32 ABG pO2 132 H D 97 D 74 L D ABG HCO3 13 L 26 29 H ABG O2 Saturation 99 H 99 H 97 ABG Base Excess -10 L 2 6 H VBG pH VBG pCO2 VBG pO2 VBG Base Excess 11/29/24 11/29/24 11/30/24 12:21 16:06 04:46 ABG pH 7.48 H 7.45 ABG pCO2 40 35 ABG pO2 112 H D 131 H ABG HCO3 30 H 24 ABG O2 Saturation 99 H 98 ABG Base Excess 6 H 1 VBG pH 7.59 VBG pCO2 29 L VBG pO2 63 H D VBG Base Excess 6 H 12/01/24 12/01/24 12/02/24 05:05 12:22 04:15 ABG pH 7.52 H 7.51 H 7.47 H ABG pCO2 30 L 31 L 35 ABG pO2 94 D 101 110 H ABG HCO3 25 24 26 ABG O2 Saturation 97 98 99 H ABG Base Excess 2 2 2 VBG pH VBG pCO2 VBG pO2 VBG Base Excess 12/03/24 04:32 ABG pH 7.54 H ABG pCO2 32 ABG pO2 102 ABG HCO3 27 H ABG O2 Saturation 98 ABG Base Excess 5 H VBG pH VBG pCO2 VBG pO2 VBG Base Excess Quality Measures Quality Measures VTE prophylaxis (lovenox) Assessment & Plan Assessment Current Active Medications: Generic Name Dose Route Start Last Admin Trade Name Freq PRN Reason Stop Dose Admin Dextrose 25 ml 11/29/24 19:04 Dextrose 50%-Water Inj 50 Ml Syringe IV 12/29/24 19:03 Q15MIN PRN BG 50-70 responsive npo pt Dextrose 50 ml 11/29/24 19:04 Dextrose 50%-Water Inj 50 Ml Syringe IV 12/29/24 19:03 Q15MIN PRN BG <50 OR BG <70 & pt unresponsive Enoxaparin Sodium 30 mg 11/29/24 07:00 12/02/24 08:32 Enoxaparin Sod Inj 30 Mg/0.3 Ml Syringe SC 12/13/24 06:59 30 mg QDAY TRUDI Administration Glucagon 1 mg 11/29/24 19:04 Glucagon Inj 1 Mg Vial IM Q15MIN PRN BG <70, and no IV access Hydromorphone HCl 1 mg 11/30/24 16:47 11/30/24 18:18 Hydromorphone Inj 2 Mg/Ml Vial IVP 12/05/24 16:46 1 mg Q4HR PRN Administration Pain or agitation Ceftriaxone Sodium/Dextrose 1 gm in 50 mls @ 100 mls/hr 11/29/24 09:00 12/02/24 09:02 Rocephin/D5w 1gm Iv Premix IV 12/06/24 08:59 Infused QDAY TRUDI Infusion Fentanyl Citrate 2,500 mcg in 250 mls @ 2.5 mls/hr 12/01/24 10:56 12/03/24 08:17 Sublimaze Inj 2,500 Mcg/250 Ml Bag IV 12/06/24 10:55 175 mcg/hr .Q24H PRN 17.5 mls/hr PER PROTOCOL Administration Protocol 25 MCG/HR Insulin Degludec 15 unit 12/03/24 09:00 Insulin Degludec 5 Unit/0.05 Ml (Per 5 Units) SC 01/02/25 08:59 BID [facility] Insulin Human Lispro 0 unit 11/30/24 00:00 12/03/24 05:37 Insulin Lispro (Admelog) 1 Unit/0.01 Ml Unit SC 12/30/24 00:00 Not Given Q6HR TRUDI Protocol Labetalol HCl 10 mg 12/02/24 07:18 12/02/24 08:29 Labetalol Inj 5 Mg/Ml Vial 20 Ml IVP 12/31/24 04:14 10 mg Q6H PRN Administration SBP >170 Levothyroxine Sodium 68 mcg 11/28/24 22:25 12/02/24 08:33 Levothyroxine Inj 100 Mcg Vial IV 12/28/24 22:24 68 mcg DAILY TRUDI Administration Ondansetron HCl 4 mg 11/28/24 20:00 Ondansetron Inj 2 Mg/Ml Inj 2 Ml IVP 12/28/24 19:59 Q6H PRN NAUSEA OR VOMITING Protocol Pharmacy Consult 1 each 11/29/24 09:00 12/02/24 12:33 Pharmacy Renal Dose Adjustment 1 Ea XX 12/29/24 08:59 Not Given QDAY TRUDI Sodium Chloride 5 ml 11/28/24 19:36 Sodium Chloride Rt 10% 15 Ml Nebu INH 12/28/24 19:35 X1 PRN SPUTUM CLEARANCE Plan 29-year-old female with poorly controlled type 1 diabetes, hypothyroidism, and polysubstance use admitted to ICU for DKA complicated by cardiac arrest, now post-ROSC. Goals of care Dr. 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 The family was thoroughly informed about the patient's current neurological status and the extent of the anoxic brain injury. The patient?s prognosis and potential next steps were discussed in detail. The following options were presented to the family: Tracheostomy and PEG tube placement for long-term respiratory and nutritional support. Custodial Facility for continued care.Comfort care as an alternative, should the family decide that aggressive interventions would not align with the patient?s values or wishes. The family was provided ample time to ask questions and discuss the information presented. At this time, the family has not yet made a decision regarding the next steps in care.Neurology was consulted to provide a further detailed review and explanation of the patient?s neurological status, ensuring the family had a comprehensive understanding of the patient?s condition and prognosis. A request for evaluation from the Neuro ICU at [facility] was made via phone with transfer center. After reviewing the patient's clinical presentation and brain imaging, it was concluded that no further interventions could be offered, and there is no indication for transfer at this time. The organ procurement organization has contacted the patient?s family, who have provided informed consent for organ donation. Comfort care measures are scheduled to begin Friday. Neurology #Comfort Care #Acute encephalopathy #Anoxic brain injury DDx: Post cardiac arrest (down time of 19 minutes) vs metabolic due to diabetic ketoacidosis vs substance intoxication vs severe hyperglycemia vs metabolic acidosis vs hypovolemia. Diagnostic Test: - GCS 5T (eyes open spontaneously +4, intubated +1, , no motor response +1, one pupil unreactive to light -1). - CT head (11/29): Extensive areas of early infarction in left middle cerebral artery distribution and both occipital lobes. - Neurology consulted. - MRI 11/30: Diffuse anoxic brain injury - CT head 12/01: Increasing cerebral edema, concern for impending herniation. - Repeat CT head 12/03: no change from previous. No significant change in extensive anoxic ischemic change. Treatment Plan: - Goals of care discussion with family. - Fentanyl titrated for comfort. - Discontinued lab draws and insulin sliding scale. - Continue with ventilator as patient cannot protect airway. - No neurosurgery intervention recommended by Neuro ICU at [facility]. Cardiovascular #Hypertension, acute (resolved) Suspected due to beginnings of herniation in setting of diffuse cerebral edema. Initial associate bradycardia that changed to tachycardia. Overnight BP was as high as 190/115. Labetalol and hydralazine provided temporary relief. Treatment plan: - Discontinue Labetalol. #Sinus tachycardia (resolved) Etiologies include reactive to pain, cerebral edema, infection. Patient elevated heart rate, ranging from 100?120 overnight. Patient on press worker helper. Treatment plan: - Fentanyl for patient comfort. #S/p cardiac arrest - ROSC in 20 minutes leading to anoxic brain injury #Shock likely mixed hypvolemic and distributive (resolved) Likely etiologies include severe acidosis, hyperkalemia, and vasodilation. Code blue start 1904, ROSC at 1925. Patient received 2 rounds of Epinephrine during code blue. Initial rhythm noted to be PEA. Diagnostic Test: - EKG post ROSC showed sinus tachycardia. - Initial potassium level 7.4. - Initial ABG: pH 6.89, pCO2 20, pO2 300, HCO3 4. - Bedside echo showed adequate LV contractility. Treatment Plan: - Fentanyl for patient comfort. Treatment Review: - Patient received several liters of IV fluids in the ER and remained hypotensive. She was started on bolus epinephrine and Levophed , which were discontinued morning o 11/29 and her blood pressure has remained stable. - Lactic acidosis has resolved with fluids. Respiratory #Acute hypoxic/hypercapneic respiratory failure #Intubated and mechanically ventilated for airway protection Diagnostic Test: - CXR: No aspiration pneumonia or pulmonary edema. - ABGs: 11/28 19:52: pH 6.89/pCO2 20/pO2 300/HCO3 4 11/28 21:00: pH 7.02/pCO2 19/pO2 261/HCO3 5 11/28 01:28: pH 7.36/pCO2 23/pO2 132/HCO3 13 11/28 04:19: pH 7.46/pCO2 36/pO2 97/HCO3 26 11/29 12:21: pH 7.56/pCO2 32/pO2 74/HCO3 29 11/30 04:46: pH 7.45/pCO2 35/pO2 131/HCO3 24 - Patient's GCS is 5T - Gag reflex intact. - Patient unable to protect airway due to mental status. Treatment Plan: - Continue ventilation: A/CMV PRVC. Settings PEEP 5.0, FiO2 25, RR 27, VT 398. - Adjust ventilation as needed. - Need GCS > 8 for extubation. #Possible strep pyogenes respiration infection DDx: concern for aspiration pneumonia given patient is intubated. Diagnostic Test: - CXR 11/29: no pneumonia seen. - Sputum culture 11/28: strep pyogenes, sensitive to Rocephin. Treatment Plan: - Continue Rocephin 1g daily for 7 days (11/29 -12/06). GI and F/E/N #Transaminitis (resolving) Likely secondary to ischemic hepatitis. DDx: decreased perfusion, severe dehydration, hypotension, metabolic acidosis from DKA and cardiac arrest. Diagnostic Test: - AST > 1000 (significant elevation, supports hepatic injury) --> 1883 --> 1344 --> 415 --> 153 --> 90. - ALT 483 --> 665 --> 842 --> 603 --> 386 --> 249. - Acetaminophen < 2.0 (ruled out toxicity). - Hepatitis panel non reactive. Treatment Plan: - no management. #Stress ulcer prophylaxis - Discontinued IV Protonix. Renal #Hypernatremia (uptrending) Diagnostic Test: - Sodium level 149 --> 151 --> 152 --> 150 --> 153 --> 154 --> 158. Treatment Plan: - No lab draws, focus on patient's comfort. #Hypokalemia (resolved) Likely due to the insulin driving potassium into the cells. Diagnostic Test: - Potassium level of 2.9 on 10 AM labs. Treatment Plan: - No lab draws, focus on patient's comfort. #Mixed acid-base disorder (resolved) #Anion gap metabolic acidosis with non-compensatory respiratory acidosis (resolved) #Respiratory alkalosis (resolved) Diagnostic Test: - 11/28 19:52: Initial ABG: pH 6.89/pCO2 20/pO2 300/HCO3 4. Interpretation: metabolic acidosis with anion gap of 35. Using Winter's Formula (with HCO3 from CMP): Predicted pCO2 range = 21-25. The observed pCO2 of 20 is not compensatory, suggesting anion gap metabolic acidosis with non-compensatory respiratory acidosis. - Subsequent ABG (11/28 20:15): pH 7.02/pCO2 19/pO2 261/HCO3 5. Interpretation: falsely low pCO2 likely due to Kussmaul breathing. The patient's respiratory effort (deep, labored breathing) likely underestimates pCO2 and actual value is expected to be higher. - Trends in ABGs: over the following hours, the patient developed respiratory alkalosis, likely induced by insulin and bicarbonate, which can lower CO2. The ventilatory settings were adjusted to help counteract this alkalosis. RR was reduced from 22 to 15 bpm to allow CO2 retention and avoid excessive alkalosis. - Most recent AB/9 pH 7.47/pCO2 35/pO2 110/HCO3 26. Treatment Review: - pCO2 remained low despite ventilator adjustments, acetazolamide 500 mg x1 and LR given. - pH, serum bicarbonate and pCO2 as normalized. - Anion gap has closed twice. Treatment Plan: - No lab draws, focus on patient's comfort. #Mixed-type lactic acidosis, in the setting of DKA (resolved) Likely multifactorial. DDx: type A from hypoperfusion/hypoxia related to hypovolemia due to DKA- associated osmotic diuresis and cardiac arrest, type B from hepatic dysfunction, stimulant/toxin use. Diagnostic test: - ABGs - metabolic acidosis with elevated anion gap and lactate. - Urine toxicology positive for methamphetamine and cocaine. - LFTs: AST > 1000, ALT 665, consistent with possible ischemic hepatitis. - Blood cultures: Strep pyogenes positive. Treatment Plan: - No lab draws, focus on patient's comfort. Treatment Review: - IV fluid hydration per DKA protocol. (Completed) - IV insulin infusion, titrated to close anion gap. (Completed) #Acute kidney injury (resolved) Likely prerenal secondary to dehydration and cardiac arrest. Diagnostic Test: - Baseline Cr 1.1. - Admission Cr 3.6 --> 3.5 --> 2.7 --> 1.8 --> 1.6 --> 1.3. - Urine output: 45cc/hr. Treatment Plan: - No lab draws, focus on patient's comfort. Heme #Leukocytosis DDx: reactive vs secondary to UTI. Likely secondary to hemoconcentration at this time. Diagnostic Test: - WBC 36.8 --> 25.3 --> 22.2 --> 15.7 --> 10.3 --> 15.4. - Highest temp overnight 100.8F, managed with cooling measures. Treatment Plan: - No lab draws. #Anemia Likely from dilution given significant IV fluids for DKA. No signs of bleeds. Diagnostic Test: - Hgb: 13.3 --> 12.0 --> 10.9 --> 11.2 --> 11.0 --> 10.6. Treatment Plan: - No lab draws. Endo #Insulin-dependent diabetes mellitus type 1 #Diabetic ketoacidosis (resolved) #Hyperglycemia (improving) Secondary to noncompliance with diabetes medication. Diagnostic Test: - Beta hydroxybutyrate > 6.4 , blood glucose 1258, anion gap 35. - Refer to above for ABG results. Treatment Plan: - Continue Insulin degludec 15 units twice a day as tube feeds are ongoing. - Discontinued insulin sliding scale. Treatment Review: - Insulin ggt per DKA protocol (completed). - Transitioned to subcutaneous insulin: Insulin degludec 30 units and Insulin sliding scale. - Anion gap has closed twice. #History of hypothyroidism Diagnostic Test: - TSH 7.10, Free T4 1.03. - On Levothyroxine 88 mcg p.o. daily at home. Treatment Plan: - Continue IV Levothyroxine 68mcg, will discontinue tomorrow once start comfort care. ID #???Micrococcus species bacteremia Final blood culture showed Micrococcus species. Unclear if true infection or contamination. Diagnostic Test: - Urine in the johnston has a lot of sediment and appears turbid. - Urine culture negative for UTI, ruled out. - Repeat UA positive for leukocyte esterase and WBCs. - GPC positive from both bottles. - Sputum culture grew strep pyogenes, sensitive to Rocephin. - CBC WBC 36.8 --> 25.3 --> 22.2 --> 15.7 --> 10.3 --> 15.4. Treatment Plan: - Continue Rocephin 1g daily (11/29 -12/06) for possible respiration infection. Will discontinue tomorrow once start comfort care. - Discontinued Vancomyin (11/30-12/01). Treatment Review: - Vancomycin PTD x1 given. - Ceftriaxone 2 g IV x1 loading dose given. Health maintenance: Disposition: Admit to ICU for DKA management and post-cardiac arrest. Plan for comfort care tomorrow (12/04). DVT prophylaxis: Enoxaparin 30mg SC daily (renally dosed) GI prophylaxis: Protonix 40mg QD Diet: Tube feeds Johnston: present Central line: right internal jugular vein Vent: A/CMV PRVC Code status: DNR. Patient discussed with my senior resident Dr. Tubbs and attending, Dr. Soni. Landry Nielsen DO, PGY 1
[2024-12-03] MEDS: cefTRIAXone/D5w 1gm IV premix 1 GM/50 ML BAG IV (09:31)
[2024-12-03] MEDS: ENOXAPARIN SOD INJ 30 MG/0.3 ML SYRINGE SC (09:31)
[2024-12-03] MEDS: INSULIN DEGLUDEC 5 UNIT/0.05 ML (PER 5 UNITS) 15 UNIT SC ×2 (09:39→21:27)
[2024-12-03] MEDS: SODIUM CHLORIDE 0.9% 1000 ML 1,000 ML 999 ML IV (09:56)
--- NOTE | 2024-12-03 10:54 | CHAP ---
Prayed for the patient and gave comfort to family.
--- NOTE | 2024-12-03 12:37 | PD.INTPROG ---
Documentation for date of: 12/03/24 Subjective Subjective Interval history: This is a 29-year-old female who presents to the ER yesterday for DKA. She underwent an arrest with CPR administered for approximately 20 minutes prior to ROSC. ROSC was established the patient was intubated and a central line was placed. She was given 3 L of fluids in the ER. She was noted to be severely acidotic. She was started on a bicarb. She was hypotensive and started on Levophed and epinephrine. Her vasopressors were weaned off this morning around 6 AM. Her bicarb drip was also stopped. This morning her labs look improved. Her propofol and fentanyl have been placed on hold to assess her underlying neurological status. She is currently afebrile with good urinary output. It is noted that her UTOX is positive for meth and cocaine. 11/30- no acute overnight events, some movement of b/l UE today, good UOP, afebrile 12/02- no acute overnight events, cont to have intermittent spikes of HTN, good UOP, low grade temp 12/03- no acute overnight events, no change in status, today there is no mov of extremities to noxious stimuli though there are REM of the eyes which are deviated downward, afebrile Critical Care Note Critical care time (min.): 36 Exam Vital Signs Temp Pulse Resp BP Pulse Ox O2 Del Method O2 Flow Rate 98.9 F 97 26 H 123/80 100 Mechanical Ventilation 5 12/03/24 12:00 12/03/24 12:15 12/03/24 09:21 12/03/24 12:15 12/03/24 12:15 12/03/24 12:00 11/28/24 18:50 FiO2 25 12/03/24 12:00 Narrative Exam Gen- intubated, not on sedation, nl body habitus, GCS 4T HEENT- NC/AT, mucosa hydrated, sclera anicteric, EOMI, eyes deviated down,L pupil sluggish, R pupil non reactive, cough/gag + Chest- coarse at bases, HRRR, no increase in WOB Abd- s/nt/bs+ Ext- edema 1+ pitting, pulses palp, no clubbing, no mottling, no mov with noxious stimuli in any extremity today Vent AC VC drips tube feeds Physical Exam Completion Physical Exam Complete?: Yes 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 12/03/24 06:10 12/03/24 04:47 Labs: Laboratory Results - last 24 hr 12/03/24 12/03/24 12/03/24 04:32 04:47 06:10 WBC 15.4 H D RBC 3.66 L Hgb 10.6 L Hct 32.8 L MCV 90 MCH 29.0 MCHC 32.3 RDW Std Deviation 48.6 H Plt Count 124 L D Neut % (Auto) 76 Lymph % (Auto) 14 [place] % (Auto) 8 Eos % (Auto) 1 Baso % (Auto) 0 Neut # (Auto) 11.7 H Lymph # (Auto) 2.1 [place] # (Auto) 1.3 H Eos # (Auto) 0.2 Baso # (Auto) 0.0 Immature Gran # (Auto) 0.07 H Absolute Nucleated RBC 0.00 Immature Gran % 1 H Nucleated RBC % 0 Puncture Site Right Radial ABG pH 7.54 H ABG pCO2 32 ABG pO2 102 ABG HCO3 27 H ABG O2 Saturation 98 ABG Base Excess 5 H FiO2 21 Sodium 158 H Potassium 3.6 D Chloride 120 H Carbon Dioxide 27.2 Anion Gap 11 BUN 18 Creatinine 0.8 Estim Creat Clear Calc 105.7 eGFR > 60 BUN/Creatinine Ratio 23 H Glucose 120 H D Calculated Osmolality 315 H Calcium 8.5 Corrected Calcium 9.1 Phosphorus 2.7 Magnesium 2.5 Total Bilirubin 0.4 AST 90 H ALT 249 H Alkaline Phosphatase 94 Total Protein 5.3 L Albumin 3.3 L Globulin 2.0 L Albumin/Globulin Ratio 1.7 Assessment & Plan Additional Assessment Additional Assessment: In summary this is 29-year-old female admitted to the ICU 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 Patient arrested in the setting of severe acidosis as well as hyperkalemia which are both likely underlying etiologies for her arrest. Shock- resolved Resp Acute hypoxic/hypercapneic resp failure- currently intubated and on MV, fu on ABG and CXR, adjust vent as needed - unable to ween further - back on AC VC - hyperventilating for increased ICP - sputum cx growing GAS-> ceftriaxone - no change Aspiration pneumonia -On antibiotics Renal LEONA- likely prerenal - avoid nephrotoxins - monitor i/os - trending back down today AGMA- resolved HyperNa- given current brain injury no aggressive correction - avoid hypotonic solutions if possible - Increasing today to 158 -Today we will start some degree of free water via OG tube HypoK- replete PO - replete once more GI GI proph- PPI Ischemic hepatitis- 2/2 code blue and down time, pt does have a h/o drug use therefore will also check a viral hep panel - trending back down - continues to improve - No change Endo DKA- now resolved - on subq lantus and SSI - FS q6hr Heme Leukocytosis- reactive v 2/2 underlying UTI - trending back down Anemia- poss dilutional given significant IVF that she has received - no obvious bleeding -More or less stable DVT proph- lovenox Thrombocytopenia-mild no indication for transfusion ID ? UTI-urine culture came back as negative therefore UTI not present Bacteremia- 2/2 bottles with GPC-> micrococcus, - Guinda to be contaminant during patient's code - Repeat cultures negative thus far case d/w ICU team d/w family at bedside-> discussion was held with family regarding the extent of the patient's injuries. The patient has extensive bilateral global anoxic/hypoxic/ischemic brain injury with extremely poor prognosis. The likelihood of any meaningful recovery or quality of life is extremely poor. Have had discussions with neurology as well as the neuroteam at [facility]. This has been communicated with the family. At this point in time they are waiting for additional family and will proceed to comfort tomorrow. Neurology consulted labs, imaging, records reviewed ~ 36ccmin required for eval, exam, review, intervention, discussion and formulation of POC for this critically ill pt s/p cardiac arrest Provider Notation Provider Notation: Although this document has been carefully reviewed, there may still be some phonetic and other typographical errors. These errors are purely grammatical due to imperfections in the software program and should not be construed in any way to compromise the substance of the patient's medical care during this visit. Thank you for the opportunity and privilege in assisting you with this patient's care and management.
--- NOTE | 2024-12-03 13:18 | PC.SS ---
Update: Plan is to initiate comfort care tomorrow at 10:00 am. Family will be present once transition is initiated.
--- NOTE | 2024-12-03 13:18 | PC.NURSE ---
Contacted donor network account maintenance representative Priscila about family and physicians plans to transition patient to comfort care tomorrow. Donor network said to maintain patient on respiratory support for now until they call back regarding donation status.
--- NOTE | 2024-12-03 17:31 | ECHO_ITS ---
Transthoracic Echo Report Ht (in): 64 Wt (lb): 182 Exam Location: Echo Lab Status: Inpatient Financial Sales Associate: Kiara Hadley Indications: Procedure Performed: BP: 115 / 58 HR: 81 Technical Quality: Fair MEASUREMENTS (Male / Female) Normal Values 2D ECHO LV Diastolic Diameter PLAX 4.9 cm 4.2 - 5.9 / 3.9 - 5.3 cm LV Systolic Diameter PLAX 3.2 cm IVS Diastolic Thickness 0.9 cm 0.6 - 1.0 / 0.6 - 0.9 cm LVPW Diastolic Thickness 1.0 cm 0.6 - 1.0 / 0.6 - 0.9 cm LV Relative Wall Thickness 0.4 LVOT Diameter 1.9 cm Aortic Root Diameter 2.9 cm LV Ejection Fraction MOD BP 56.7 % >= 55 % LV Cardiac Index MOD BP 1463.0 cm?/min?m? LV Ejection Fraction MOD 4C 55.6 % LV Cardiac Index MOD 4C 1190.3 cm?/min?m? LV Ejection Fraction 4C AL 58.4 % LV Cardiac Index 4C AL 1306.4 cm?/min?m? LV Ejection Fraction MOD 2C 55.7 % LV Cardiac Index MOD 2C 1628.3 cm?/min?m? LV Ejection Fraction 2C AL 57.9 % LV Cardiac Index 2C AL 1737.3 cm?/min?m? LA Volume Index 12.4 cm?/m? 16 - 28 cm?/m? M-MODE Aortic Root Diameter MM 2.5 cm LA Systolic Diameter MM 3.4 cm LA Ao Ratio MM 1.4 AV Cusp Separation MM 1.9 cm DOPPLER AV Peak Velocity 158.0 cm/s AV Peak Gradient 10.0 mmHg AV Mean Gradient 5.0 mmHg AV Velocity Time Integral 26.3 cm LVOT Peak Velocity 121.0 cm/s LVOT Peak Gradient 5.9 mmHg LVOT Velocity Time Integral 25.3 cm LVOT Cardiac Index 2964.6 cm?/min?m? AV Area Cont Eq vti 2.7 cm? AV Area Cont Eq pk 2.2 cm? MV Area PHT 3.8 cm? Mitral E Point Velocity 83.4 cm/s Mitral A Point Velocity 68.4 cm/s Mitral E to A Ratio 1.2 LV E' Lateral Velocity 9.9 cm/s Mitral E to LV E' Lateral Ratio 8.4 LV E' Septal Velocity 9.5 cm/s Mitral E to LV E' Septal Ratio 8.8 PV Peak Velocity 110.0 cm/s PV Peak Gradient 4.8 mmHg FINDINGS Left Ventricle Normal left ventricular size, wall thickness. Hyperdynamic left ventricle. Normal left ventricular diastolic function. The ejection fraction is visually estimated at 60-65%. Right Ventricle The right ventricle is normal in size and systolic function. Left Atrium The left atrium is normal by two-dimensional, color flow and Doppler imaging with no structural abnormalities, no thrombus formation present. Right Atrium The right atrium is normal by two-dimensional imaging, color flow and Doppler imaging with no structural abnormalities, no thrombus formation present. Atrial Septum The interatrial septum appears normal with no evidence of a shunt. Aorta The aorta is normal by two-dimensional, color flow and Doppler interrogation. Mitral Valve The mitral valve is normal by two-dimensional, color flow and Doppler interrogation. Trace mitral regurgitation. Aortic Valve The aortic valve is trileaflet and normal by two-dimensional, color flow and Doppler interrogation. There is no significant aortic valve regurgitation. Tricuspid Valve The tricuspid valve is normal by two-dimensional, color flow and Doppler interrogation. There is trace tricuspid valve regurgitation. Pulmonic Valve The pulmonic valve is not well visualized. There is no significant pulmonic valve regurgitation. Vessels The pulmonary artery appears normal. The inferior vena cava pulmonary and hepatic veins appear normal. Pericardium The pericardium is normal by two-dimensional imaging. There is no significant pericardial effusion. CONCLUSIONS Indication: Organ donor Normal LV size, wall thickness. Hyperdynamic LV. Normal left ventricular diastolic function. Estimated at 60-65%. The RV is normal in size and systolic function. Trace TR and MR. ; mobile echogenic structure seen in the tip of the anterior mitral leaflet seen in the parasternalview cannot confirm in other views due to poor visualization possible vegetation Rose Mg (Electronically Signed) Final Date: 04 December 2024 23:06
--- NOTE | 2024-12-03 17:36 | EKG_ITS ---
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
--- NOTE | 2024-12-03 17:43 | PD.RESEVENT ---
Documentation for date of: 12/03/24 Event Note Event Note: Spoke with Organ Donation Network regarding orders needed to proceed with organ donation. Dr. Tubbs verified with family that they would like to move forward with organ donation. Following orders initiated: - CXR q6hr - Urine culture x1 - CMP q6hr - Magnesium/Phosphorous q6hr - Direct bilirubin q6hr - CK/CKMB/Troponin q6hr - Amylase/lipase x1 - HbA1c x1 - COVID PCR, Quantiferon gold - CBC q6hr - PT/PTT, INR q6hr - Urinalysis q24hr - Type and Screen x1 - ABG q6hr - TTE, EKG - Zosyn 3.375gm IV q8hr - Diflucan 200mg IV x1 Following Labs were unavailabe: - GGT, CK MB%. TEG Will plan for following procedures: - Arterial line placement - Bronchoscopy with BAL sample, sputum gram stain & culture - CT CAP with triphasic liver protocol (AFTER bronchoscopy as above) Will continue appropriate care. Kwame Solano MD PGY-2
[2024-12-03] MEDS: PIPER/TAZO 3.375 GM PREMIX 3.375 GM/50 ML BAG IV ×2 (17:56→21:28)
[2024-12-03] MEDS: FLUCONAZOLE/NS 200 MG IVPB 200 MG/100 ML BAG 100 MG IV (17:56)
--- NOTE | 2024-12-03 18:00 | XR_ITS ---
EXAMINATION: AP chest single view TECHNIQUE: Portable semiupright AP chest single view Date and time: December 03, 2024, 1801 hours, comparison November 29, 2024 INDICATIONS: Organ donation patient FINDINGS: Normal heart size The lungs are clear. Right central line endotracheal tube satisfactory position as well as orogastric tube in the stomach IMPRESSION: No pneumonia or pulmonary edema
[2024-12-03] MEDS: INSULIN LISPRO (AdmeLOG) 1 UNIT/0.01 ML UNIT SC (18:21)
--- NOTE | 2024-12-03 18:34 | PC.NURSE ---
Spoke to Jada at [phone] from donor network who gave numbers for two donor representatives if questions arise. Braeden at [phone] and Chencho at [phone] if Braeden is unable to answer the phone, with instructions to call for any questions or if a change in condition occurs. and anthony shift notified regarding recommendations.
[2024-12-03 18:57] LABS: Basophils # (Auto) 0.0 Thou/mm3 (0.0-0.2); Basophils % (Auto) 0 % (0-2.5); Eosinophils # (Auto) 0.2 Thou/mm3 (0.0-0.5); Eosinophils % (Auto) 2 % (0-10); Hematocrit 31.5 % (36.0-46.0); Hemoglobin 10.1 g/dL (12.0-16.0); Immature Granulocytes Auto 0.09 Thou/mm3 (0.00-0.00); Lymphocytes # (Auto) 2.4 Thou/mm3 (1.0-4.8); Lymphocytes % (Auto) 16 % (10-50); Mean Corpuscular HGB Conc 32.1 g/dl (31.0-37.0); Mean Corpuscular Hemoglobin 29.1 pg (25.0-35.0); Mean Corpuscular Volume 91 fL (80-100); Monocytes # (Auto) 1.3 Thou/mm3 (0.0-0.8); Monocytes % (Auto) 9 % (0-12); Neutrophils # (Auto) 11.2 Thou/mm3 (1.8-7.7); Neutrophils % (Auto) 73 % (37-80); Nucleated Red Blood Cell # 0.00 Thou/mm3 (0.00-0.00); Nucleated Red Blood Cell % 0 /100 WBC (0); Platelet Count 133 Thou/mm3 (140-440); RDW Standard Deviation 48.6 fL (36.4-46.3); Red Blood Count 3.47 Miln/mm3 (4.00-5.20); White Blood Count 15.2 Thou/mm3 (3.6-11.0)
[2024-12-03 19:04] LABS: INR 1.0 (0.9-1.3); Partial Thromboplastin Time 22.8 Seconds (22.0-36.0); Prothrombin Time 10.6 Seconds (9.0-12.2)
[2024-12-03 19:09] LABS: Alanine Aminotransferase 186 U/L (10-49); Albumin, Serum 3.2 gm/dL (3.5-5.0); Albumin/Globulin Ratio 1.6 (1.2-2.2); Alkaline Phosphatase 92 U/L (46-116); Amylase 23 U/L (30-118); Anion Gap 13 (7-16); Aspartate Amino Transferase 75 U/L (0-34); BUN/Creatinine Ratio 18 Ratio (12-20); Bilirubin,Direct 0.1 mg/dL (0.0-0.3); Bilirubin,Total 0.3 mg/dL (0.3-1.2); Blood Urea Nitrogen 14 mg/dL (9-23); Calcium 8.1 mg/dL (8.3-10.6); Calcium (Corrected) 8.7 mg/dL (8.5-10.1); Carbon Dioxide 24.3 mMol/L (20.0-31.0); Chloride 119 mMol/L (98-107); Creatine Kinase 67 U/L (34-171); Creatinine (Component) 0.8 mg/dL (0.6-1.3); Estimated Creatinine Clearance 106.1 mL/min (>60); Globulin 2.0 gm/dL (2.3-3.5); Glucose 289 mg/dL (74-106); LDH (Lactate Dehydrogenase) 515 U/L (120-246); Lipase 18 U/L (12-53); Magnesium 2.4 mg/dL (1.6-2.6); Osmolality,Calculated 320 (275-295); Phosphorous 2.9 mg/dL (2.4-5.1); Potassium 3.7 mMol/L (3.4-5.1); Sodium 156 mMol/L (136-145); Total Protein 5.2 gm/dL (5.7-8.2); Troponin I 0.034 ng/mL (0.0-0.045); eGFR > 60 See Note
[2024-12-03 19:12] LABS: Glucose Estimated Average 280 mg/dL (80-131); Hemoglobin A1C 11.4 % Hgb (4.8-6.0)
[2024-12-03 19:37] LABS: Base Excess 2 (-3-3); HCO3 25 mEq/L (20-26); Inspired Oxygen, FIO2 21 %; O2 Saturation 99 % (91-98); PCO2 33 mmHg (32.0-48.0); PO2 95 mmHg (83-108); pH, Arterial 7.50 (7.35-7.45)
[2024-12-03 19:38] LABS: Allen Test Performed/OK; Puncture Site Right Radial
[2024-12-03 19:49] LABS: Quantiferon-TB* See Sep Rpt
[2024-12-04] VITALS (100 sets, daily range): BP systolic 91–300; BP diastolic 51–300; PULSE 57–114; RESP 2–27; TEMP 36.7–37.4; O2SAT 91–100; BMI 30.7
--- NOTE | 2024-12-04 | XR_ITS ---
EXAMINATION: AP chest single view TECHNIQUE: AP portable semiupright chest single view Date and time: December 04, 2024, 0044 hours, comparison December 03, 2024 INDICATION: Organ donor FINDINGS: Normal heart size Lungs are clear Endotracheal tube and right internal jugular central line remain in satisfactory position. The orogastric tube is in the stomach, the tip is below the level of the film IMPRESSION: No interval pneumonia or pulmonary edema
[2024-12-04] MEDS: INSULIN LISPRO (AdmeLOG) 1 UNIT/0.01 ML UNIT SC ×5 (00:30→21:46)
[2024-12-04 00:39] LABS: Lactate (Lactic Acid) 1.2 mMol/L (0.4-2.0)
[2024-12-04 00:40] LABS: Base Excess 2 (-3-3); HCO3 26 mEq/L (20-26); Inspired Oxygen, FIO2 25 %; O2 Saturation 99 % (91-98); PCO2 33 mmHg (32.0-48.0); PO2 104 mmHg (83-108); pH, Arterial 7.50 (7.35-7.45)
[2024-12-04 00:40] LABS: Basophils # (Auto) 0.0 Thou/mm3 (0.0-0.2); Basophils % (Auto) 0 % (0-2.5); Eosinophils # (Auto) 0.3 Thou/mm3 (0.0-0.5); Eosinophils % (Auto) 2 % (0-10); Hematocrit 30.1 % (36.0-46.0); Hemoglobin 9.6 g/dL (12.0-16.0); Immature Granulocytes Auto 0.08 Thou/mm3 (0.00-0.00); Lymphocytes # (Auto) 2.4 Thou/mm3 (1.0-4.8); Lymphocytes % (Auto) 19 % (10-50); Mean Corpuscular HGB Conc 31.9 g/dl (31.0-37.0); Mean Corpuscular Hemoglobin 28.9 pg (25.0-35.0); Mean Corpuscular Volume 91 fL (80-100); Monocytes # (Auto) 1.2 Thou/mm3 (0.0-0.8); Monocytes % (Auto) 10 % (0-12); Neutrophils # (Auto) 8.6 Thou/mm3 (1.8-7.7); Neutrophils % (Auto) 68 % (37-80); Nucleated Red Blood Cell # 0.00 Thou/mm3 (0.00-0.00); Nucleated Red Blood Cell % 0 /100 WBC (0); Platelet Count 127 Thou/mm3 (140-440); RDW Standard Deviation 47.7 fL (36.4-46.3); Red Blood Count 3.32 Miln/mm3 (4.00-5.20); White Blood Count 12.6 Thou/mm3 (3.6-11.0)
[2024-12-04 00:41] LABS: Allen Test Performed/OK; Puncture Site Right Radial
[2024-12-04 01:00] LABS: INR 1.0 (0.9-1.3); Partial Thromboplastin Time 21.1 Seconds (22.0-36.0); Prothrombin Time 10.6 Seconds (9.0-12.2)
[2024-12-04 01:01] LABS: Alanine Aminotransferase 165 U/L (10-49); Albumin, Serum 3.2 gm/dL (3.5-5.0); Albumin/Globulin Ratio 1.4 (1.2-2.2); Alkaline Phosphatase 91 U/L (46-116); Anion Gap 11 (7-16); Aspartate Amino Transferase 66 U/L (0-34); BUN/Creatinine Ratio 25 Ratio (12-20); Bilirubin,Direct 0.1 mg/dL (0.0-0.3); Bilirubin,Total 0.3 mg/dL (0.3-1.2); Blood Urea Nitrogen 20 mg/dL (9-23); Calcium 8.5 mg/dL (8.3-10.6); Calcium (Corrected) 9.1 mg/dL (8.5-10.1); Carbon Dioxide 25.5 mMol/L (20.0-31.0); Chloride 119 mMol/L (98-107); Creatine Kinase 57 U/L (34-171); Creatinine (Component) 0.8 mg/dL (0.6-1.3); Estimated Creatinine Clearance 106.1 mL/min (>60); Globulin 2.3 gm/dL (2.3-3.5); Glucose 294 mg/dL (74-106); Magnesium 2.4 mg/dL (1.6-2.6); Osmolality,Calculated 320 (275-295); Phosphorous 3.0 mg/dL (2.4-5.1); Potassium 3.7 mMol/L (3.4-5.1); Sodium 155 mMol/L (136-145); Total Protein 5.5 gm/dL (5.7-8.2); Troponin I 0.032 ng/mL (0.0-0.045); eGFR > 60 See Note
[2024-12-04 01:12] LABS: LDH (Lactate Dehydrogenase) 491 U/L (120-246)
--- NOTE | 2024-12-04 06:00 | XR_ITS ---
EXAMINATION: AP chest single view TECHNIQUE: AP portable semiupright chest single view Date and time: December 04, 2024, 0552 hours, comparison December 04, 2024 INDICATIONS: Status post cardiopulmonary arrest, organ donor FINDINGS: Normal heart size The lungs are clear. Endotracheal tube tip 4.7 cm above venancio. The orogastric tube tip is below the level of the film, the tube is in the stomach Right internal jugular central line tip SVC IMPRESSION: No pneumonia or pulmonary edema
[2024-12-04 06:09] LABS: Basophils # (Auto) 0.0 Thou/mm3 (0.0-0.2); Basophils % (Auto) 0 % (0-2.5); Eosinophils # (Auto) 0.3 Thou/mm3 (0.0-0.5); Eosinophils % (Auto) 2 % (0-10); Hematocrit 29.4 % (36.0-46.0); Hemoglobin 9.6 g/dL (12.0-16.0); Immature Granulocytes Auto 0.09 Thou/mm3 (0.00-0.00); Lymphocytes # (Auto) 2.3 Thou/mm3 (1.0-4.8); Lymphocytes % (Auto) 17 % (10-50); Mean Corpuscular HGB Conc 32.7 g/dl (31.0-37.0); Mean Corpuscular Hemoglobin 29.4 pg (25.0-35.0); Mean Corpuscular Volume 90 fL (80-100); Monocytes # (Auto) 1.3 Thou/mm3 (0.0-0.8); Monocytes % (Auto) 9 % (0-12); Neutrophils # (Auto) 9.7 Thou/mm3 (1.8-7.7); Neutrophils % (Auto) 71 % (37-80); Nucleated Red Blood Cell # 0.00 Thou/mm3 (0.00-0.00); Nucleated Red Blood Cell % 0 /100 WBC (0); Platelet Count 151 Thou/mm3 (140-440); RDW Standard Deviation 47.3 fL (36.4-46.3); Red Blood Count 3.26 Miln/mm3 (4.00-5.20); White Blood Count 13.7 Thou/mm3 (3.6-11.0)
[2024-12-04] MEDS: PIPER/TAZO 3.375 GM PREMIX 3.375 GM/50 ML BAG IV ×3 (06:16→21:36)
[2024-12-04 06:23] LABS: INR 1.0 (0.9-1.3); Partial Thromboplastin Time 21.6 Seconds (22.0-36.0); Prothrombin Time 10.7 Seconds (9.0-12.2)
[2024-12-04 06:40] LABS: Alanine Aminotransferase 151 U/L (10-49); Albumin, Serum 3.2 gm/dL (3.5-5.0); Albumin/Globulin Ratio 1.3 (1.2-2.2); Alkaline Phosphatase 92 U/L (46-116); Anion Gap 11 (7-16); Aspartate Amino Transferase 36 U/L (0-34); BUN/Creatinine Ratio 24 Ratio (12-20); Bilirubin,Direct 0.1 mg/dL (0.0-0.3); Bilirubin,Total 0.3 mg/dL (0.3-1.2); Blood Urea Nitrogen 19 mg/dL (9-23); Calcium 8.5 mg/dL (8.3-10.6); Calcium (Corrected) 9.1 mg/dL (8.5-10.1); Carbon Dioxide 25.1 mMol/L (20.0-31.0); Chloride 119 mMol/L (98-107); Creatine Kinase 63 U/L (34-171); Creatinine (Component) 0.8 mg/dL (0.6-1.3); Estimated Creatinine Clearance 105.3 mL/min (>60); Globulin 2.4 gm/dL (2.3-3.5); Glucose 287 mg/dL (74-106); Magnesium 2.4 mg/dL (1.6-2.6); Osmolality,Calculated 319 (275-295); Phosphorous 2.6 mg/dL (2.4-5.1); Potassium 3.7 mMol/L (3.4-5.1); Sodium 155 mMol/L (136-145); Total Protein 5.6 gm/dL (5.7-8.2); Troponin I 0.027 ng/mL (0.0-0.045); eGFR > 60 See Note
[2024-12-04 06:55] LABS: LDH (Lactate Dehydrogenase) 510 U/L (120-246)
[2024-12-04] MEDS: ENOXAPARIN SOD INJ 30 MG/0.3 ML SYRINGE SC (09:55)
[2024-12-04] MEDS: INSULIN DEGLUDEC 5 UNIT/0.05 ML (PER 5 UNITS) 20 UNIT SC ×2 (09:56→21:41)
--- NOTE | 2024-12-04 11:06 | PD.INTPROC ---
PROCEDURES: Procedure Date / Time 12/04/24 1106 Bronchoscopy Bronscopy indication(s): diagnostic BAL Informed consent obtained from: surrogate Time out done and the following verified: correct patient, side and site, procedure and patient position Oxygen delivery: via mechanical vent. Trachea: proximal appears normal, distal appears normal and secretions noted Bernadette: sharp in angle RUL & subsegmental branches: mucosa appears normal RML & subsegmental branches: mucosa appears normal RLL & subsegmental branches: mucosa appears normal CARINA & subsegmental branches: mucosa appears normal LLL & subsegmental branches: mucosa appears normal Bronchoalveolar lavage: Right lower lobe with thick white secretions - easily suctioned 60ml total lavage RLL Two separate luken traps were used to collect BAL EBL: 0 Patient tolerated procedure: well Complications: No
--- NOTE | 2024-12-04 11:13 | XR_ITS ---
Examination: CT chest with intravenous contrast CT chest without intravenous contrast CT abdomen with intravenous contrast CT abdomen without intravenous contrast CT pelvis with intravenous contrast 2-D coronal and sagittal reconstructions Time of exam: December 04, 2024, 1233 hours, comparison June 16, 2023 INDICATIONS: Status post severe anoxic event, organ donor CTDI: vol (mGy) : 38.9 DLP: (mGycm): 1735 Technique: Multiple axial images of the chest, abdomen and pelvis with intravenous contrast, 3.0 mm slice thickness. Images obtained post intravenous injection Isovue 370 100 cc. 2-D sagittal and coronal reconstructions. Low dose protocols were performed. One or more of the following dose reduction techniques were used; automated exposure control, adjustment of the mA and/or KV according to patient size, use of iterative reconstruction technique. Findings: Tracheal tube tip satisfactory position No thoracic aortic aneurysmal dilatation. No pulmonary artery filling defects. No lobar pneumonia, no pulmonary edema or pleural disease No visualized liver or splenic lesions No pancreatic mass Oral gastric tube in the duodenum, no gallstones No renal or ureteral calculi, no hydronephrosis No bowel obstruction Normal appendix Urinary [place] catheter No pelvic mass The osseous structures are intact IMPRESSION: No pneumonia, pulmonary edema or pleural disease No acute process in the abdomen or pelvis.
--- NOTE | 2024-12-04 11:14 | ESPR_ITS ---
<Statement entered by Claude Smallwood MD - 12/16/24 07:57> TOTAL TIME: 45MINUTES ON DIRECT MEDICAL CARE, MANAGEMENT - COORDINATION AND COUNSELING > 50% OF TOTAL TIME I saw and evaluated the patient. I reviewed the resident?s note and agree with findings and plan as documented in the resident?s note. <Statement entered by Kwame Solano MD - 12/06/24 07:52> Patient seen and examined at bedside. I discussed and supervised with the architect intern physician who took care of this patient. I personally saw and examined the patient. I agree with most of the assessment and plan. Plan of care discussed with attending Dr. Smallwood. Kwame Solano MD PGY-2 Documentation for date of: 12/04/24 Subjective Subjective Interval history: 29-year-old female with a history of poorly controlled type 1 diabetes mellitus, multiple prior admissions for DKA, polysubstance use, hypothyroidism (methamphetamine and cocaine) presented to the ED on 11/28/2024 with complaints of feeling like she was ?in DKA? (per ED documentation). She had not taken Lantus for the past 3 days due to running out, though she continued using NovoLog. She also endorsed recent cocaine use. ED Course: -Initial vitals were: BP 110/82, HR 128, RR 24, T 100F, O2 saturation 98% on room air (FiO2 60%). -Labs significant for: only lab results available at the time was CBC which was remarkable for WBC 36.8, neutrophil predominant. Urine analysis showed rare bacteria, 4+ glucose and 3+ ketones. Urine toxicology positive for methamphetamine and cocaine. -Imaging included: none -In the ED, patient was given: 3L of LR. At 1905, the patient became unresponsive and a code blue was called. She was found to be in cardiac arrest. ACLS was initiated, including chest compressions, epinephrine, sodium bicarbonate, and intubation by the ED attending. ROSC was achieved at 1924. IO access was initially obtained, followed by successful placement of a central line. Post-ROSC labs: Electrolytes: Na 131 (L), K 7.4 (H), Cl 86 (L), HCO3 <10 (L), Anion gap 35 (H). Renal: BUN 47 (H), Cr 3.6 (H), eGFR 17 (L). Glucose: 1258 (H). Other: Ca 8.0 (L), Phos 18.8 (H), Mg 3.6 (H), AST >1000 (H), ALT 483 (H), Albumin 3.3 (L), beta-hydroxybutyrate >6.4 (H). She was found to be severely acidotic and started on bicarbonate drip. She was also hypotensive and started on vasopressors (Levophed and epinephrine). Insulin drip was initiated empirically for diabetic ketoacidosis. Due to ED physician's concern for unsterilized procedure marrufo in acute setting, patient was empirically started on Vancomycin and Zosyn. Patient was admitted to the ICU for continued resuscitation and management. Interval History: 12/04/2024: Patient experienced no acute events overnight. Tube feeds have reached the goal rate of 45 cc/hr. Total urine output was 1L, averaging approximately 80 cc/hr. Blood glucose levels ranged between 257 and 287 mg/dL. To improve glycemic control, the insulin degludec dosage was increased to 20 units twice daily (40 units total), up from 15 units twice daily. Additionally, the insulin sliding scale was adjusted from step 2 to step 3. Preparatory labs and imaging for organ donation have been initiated, including the placement of an arterial line and a bronchoscopy with a BAL sample today. Following the bronchoscopy, the patient became more agitated, and the fentanyl dose was increased from 175 mcg to 225 mcg. 12/03/2024: The organ procurement organization has contacted the patient?s family, who have provided informed consent for organ donation. Comfort care measures are scheduled to begin Friday. Overnight, patient received 5 units of insulin degludec at 2029 for improved blood glucose control. Glucose readings were 222 and 103, showing improvement from prior nights when levels were in the 300s. The insulin degludec regimen will continue as a split dose of 15 units BID (total 30 units daily). Patient had 3 loose bowel movements. Maximum temperature was 100.4?F, no tylenol was given, and the temperature decreased to 99.1?F by morning. Urine output was 25 cc/hr overnight. A 1L normal saline bolus was administered for suspected dehydration. Urine output will be reassessed post-bolus. Pain is managed with fentanyl at 175 mcg. Tube feeding rate is currently 25 cc/hr. Discussed with dietitian plan to advance rate by 5 cc every 8 hours to a goal of 45 cc/hr. No free water flushes at this time. 12/02/2024: Overnight, the patient was given Labetalol 10 mg once for a blood pressure of 190/112, resulting in some improvement to 171/115. Patient also had a temperature of 100.8?F, and cooling measures were initiated. By this morning, the temperature had decreased to 99.9?F. Urine output remained stable at approximately 45 cc/hour. The patient continues to receive Fentanyl 175 mcg for pain. 12/01/2024: Patient evaluated at bedside, shows no improvement in neurological status. Overnight, patient had bradycardia that transitioned to tachycardia, significant hypertension requiring labetalol and hydralazine IV pushes. Patient taken off pressure support due to some respiratory distress, unclear of what nature. Urine output approximately 100 cc/h throughout the night. MRI showed massive diffuse anoxic changes to brain. Repeat head CT showed concern for impending herniation, and worsening cerebral edema. This findings were discussed with the family who showed good understanding and awareness. Fentanyl was initiated for pain control. Consult placed to transfer to neurosurgical center given risk of impending herniation considering cerebral edema. ABG showed mild respiratory alkalosis, Vent settings adjusted appropriately. 11/30/2024: Overnight, the patient was transitioned to subcutaneous insulin, with IV insulin discontinued approximately one hour later. Tube feeds were initiated at a rate of 25 mL/hr. The patient's blood glucose levels have ranged from 157 to 341 mg/dL. The patient was initially started on 20 units of insulin degludec, along with a sliding scale insulin. In response to blood glucose fluctuations, the insulin degludec dose was increased to 25 units to improve control. The patient's urine output was 900 mL over the past 24 hours, averaging 100 mL/hr. A head CT performed yesterday revealed extensive infarction in the left middle cerebral artery distribution and both occipital lobes. These findings were discussed with the patient's family during their visit around 11:00 AM. In addition, Dr. Cheryr was consulted to provide a more detailed explanation of the extent of the brain damage following the patient's cardiac arrest to family. 11/29/2024: Overnight, patient remained on vasopressors and bicarbonate drip overnight and was weaned off around 6AM this morning. Propofol and fentanyl have been held to allow for assessment of her underlying neurological status. She is currently afebrile with adequate urine output (~3.3L over the past 24 hours). Exam Vital Signs Temp Pulse Resp BP Pulse Ox O2 Del Method O2 Flow Rate 99.3 F 71 26 H 160/99 H 100 Mechanical Ventilation 5 12/04/24 08:00 12/04/24 10:45 12/03/24 09:21 12/04/24 10:45 12/04/24 10:45 12/04/24 08:00 11/28/24 18:50 FiO2 12/04/24 09:54 Narrative Exam Physical Exam General: Intubated. Head: Normocephalic, atraumatic. Eyes: Pupils are equal and reactive to light, sluggish. Anicteric. Mouth/Throat: ET tube and OG tube in place. Gag reflex present. Heart: Regular rate and rhythm, no murmurs. No JVD. Right Internal jugular vein central line present. Lungs: Clear to auscultation with no wheezing or crackles. Non-labored respirations, symmetric chest rise, no use of accessory muscles. Mechanical breath sounds. Abdomen: Soft and non-distended. Johnston in place. Extremities: No edema in lower extremities. Swelling of bilateral hands and arms. Posterior tibial pulses are 2+ bilaterally. 2+ radial pulse bilaterally. No clubbing or cyanosis. No mottling. Soft restraints on bilateral wrists. Skin: No rash. Tattoos. Neurologic: FOUR score: 9 points - Eye response: eyelids open but not tracking (+3) - Motor response: extension response to pain (+1) - Brainstem reflexes: pupil and corneal reflexes present (+4) - Respiration: breaths above ventilator rate (+1) Objective Labs 12/05/24 00:15 12/05/24 00:15 Labs: Laboratory Results - last 24 hr 12/03/24 12/03/24 12/04/24 18:30 19:27 00:19 WBC 15.2 H 12.6 H RBC 3.47 L 3.32 L Hgb 10.1 L 9.6 L Hct 31.5 L 30.1 L MCV 91 91 MCH 29.1 28.9 MCHC 32.1 31.9 RDW Std Deviation 48.6 H 47.7 H Plt Count 133 L 127 L Neut % (Auto) 73 68 Lymph % (Auto) 16 19 Johnson % (Auto) 9 10 Eos % (Auto) 2 2 Baso % (Auto) 0 0 Neut # (Auto) 11.2 H 8.6 H Lymph # (Auto) 2.4 2.4 Johnson # (Auto) 1.3 H 1.2 H Eos # (Auto) 0.2 0.3 Baso # (Auto) 0.0 0.0 Immature Gran # (Auto) 0.09 H 0.08 H Absolute Nucleated RBC 0.00 0.00 Immature Gran % 1 H 1 H Nucleated RBC % 0 0 PT 10.6 10.6 INR 1.0 1.0 APTT 22.8 21.1 L Puncture Site Right Radial ABG pH 7.50 H ABG pCO2 33 ABG pO2 95 ABG HCO3 25 ABG O2 Saturation 99 H ABG Base Excess 2 FiO2 21 Sodium 156 H 155 H Potassium 3.7 3.7 Chloride 119 H 119 H Carbon Dioxide 24.3 25.5 Anion Gap 13 11 BUN 14 20 Creatinine 0.8 0.8 Estim Creat Clear Calc 106.1 106.1 eGFR > 60 > 60 BUN/Creatinine Ratio 18 25 H Glucose 289 H D [address] Glu mg/dL 280 H Hemoglobin A1c 11.4 H Calculated Osmolality 320 H 320 H Lactic Acid 1.2 Calcium 8.1 L 8.5 Corrected Calcium 8.7 9.1 Phosphorus 2.9 3.0 Magnesium 2.4 2.4 Total Bilirubin 0.3 0.3 Direct Bilirubin 0.1 0.1 AST 75 H 66 H ALT 186 H 165 H Alkaline Phosphatase 92 91 Lactate Dehydrogenase 515 H 491 H Total Creatine Kinase 67 57 Troponin I 0.034 0.032 Total Protein 5.2 L 5.5 L Albumin 3.2 L 3.2 L Globulin 2.0 L 2.3 Albumin/Globulin Ratio 1.6 1.4 Amylase 23 L Lipase 18 Blood Type O Positive Antibody Screen NEGATIVE Blood Bank Wristband ID Yes 12/04/24 12/04/24 00:29 06:00 WBC 13.7 H RBC 3.26 L Hgb 9.6 L Hct 29.4 L MCV 90 MCH 29.4 MCHC 32.7 RDW Std Deviation 47.3 H Plt Count 151 Neut % (Auto) 71 Lymph % (Auto) 17 Johnson % (Auto) 9 Eos % (Auto) 2 Baso % (Auto) 0 Neut # (Auto) 9.7 H Lymph # (Auto) 2.3 Johnson # (Auto) 1.3 H Eos # (Auto) 0.3 Baso # (Auto) 0.0 Immature Gran # (Auto) 0.09 H Absolute Nucleated RBC 0.00 Immature Gran % 1 H Nucleated RBC % 0 PT 10.7 INR 1.0 APTT 21.6 L Puncture Site Right Radial ABG pH 7.50 H ABG pCO2 33 ABG pO2 104 ABG HCO3 26 ABG O2 Saturation 99 H ABG Base Excess 2 FiO2 25 Sodium 155 H Potassium 3.7 Chloride 119 H Carbon Dioxide 25.1 Anion Gap 11 BUN 19 Creatinine 0.8 Estim Creat Clear Calc 105.3 eGFR > 60 BUN/Creatinine Ratio 24 H Glucose [address] Glu mg/dL Hemoglobin A1c Calculated Osmolality 319 H Lactic Acid Calcium 8.5 Corrected Calcium 9.1 Phosphorus 2.6 Magnesium 2.4 Total Bilirubin 0.3 Direct Bilirubin 0.1 AST 36 H ALT 151 H Alkaline Phosphatase 92 Lactate Dehydrogenase 510 H Total Creatine Kinase 63 Troponin I 0.027 Total Protein 5.6 L Albumin 3.2 L Globulin 2.4 Albumin/Globulin Ratio 1.3 Amylase Lipase Blood Type Antibody Screen Blood Bank Wristband ID ABG Interpretation ABG results: 11/28/24 11/28/24 11/28/24 19:20 19:52 21:00 ABG pH 6.89 L* 7.02 L* D ABG pCO2 20 L 19 L* ABG pO2 300 H 261 H D ABG HCO3 4 L* 5 L* ABG O2 Saturation 99 H 100 H ABG Base Excess -28 L -25 L VBG pH 6.77 L VBG pCO2 35 L VBG pO2 149 H VBG Base Excess -29 L 11/29/24 11/29/24 11/29/24 01:28 04:19 12:14 ABG pH 7.36 D 7.46 H D 7.56 H D ABG pCO2 23 L 36 D 32 ABG pO2 132 H D 97 D 74 L D ABG HCO3 13 L 26 29 H ABG O2 Saturation 99 H 99 H 97 ABG Base Excess -10 L 2 6 H VBG pH VBG pCO2 VBG pO2 VBG Base Excess 11/29/24 11/29/24 11/30/24 12:21 16:06 04:46 ABG pH 7.48 H 7.45 ABG pCO2 40 35 ABG pO2 112 H D 131 H ABG HCO3 30 H 24 ABG O2 Saturation 99 H 98 ABG Base Excess 6 H 1 VBG pH 7.59 VBG pCO2 29 L VBG pO2 63 H D VBG Base Excess 6 H 12/01/24 12/01/24 12/02/24 05:05 12:22 04:15 ABG pH 7.52 H 7.51 H 7.47 H ABG pCO2 30 L 31 L 35 ABG pO2 94 D 101 110 H ABG HCO3 25 24 26 ABG O2 Saturation 97 98 99 H ABG Base Excess 2 2 2 VBG pH VBG pCO2 VBG pO2 VBG Base Excess 12/03/24 12/03/24 12/04/24 04:32 19:27 00:29 ABG pH 7.54 H 7.50 H 7.50 H ABG pCO2 32 33 33 ABG pO2 102 95 104 ABG HCO3 27 H 25 26 ABG O2 Saturation 98 99 H 99 H ABG Base Excess 5 H 2 2 VBG pH VBG pCO2 VBG pO2 VBG Base Excess Quality Measures Quality Measures VTE prophylaxis (lovenox) Assessment & Plan Assessment Current Active Medications: Generic Name Dose Route Start Last Admin Trade Name Freq PRN Reason Stop Dose Admin Dextrose 25 ml 12/03/24 17:37 Dextrose 50%-Water Inj 50 Ml Syringe IV 01/02/25 17:36 Q15MIN PRN BG 50-70 responsive npo pt Dextrose 50 ml 12/03/24 17:37 Dextrose 50%-Water Inj 50 Ml Syringe IV 01/02/25 17:36 Q15MIN PRN BG <50 OR BG <70 & pt unresponsive Enoxaparin Sodium 30 mg 11/29/24 07:00 12/04/24 09:55 Enoxaparin Sod Inj 30 Mg/0.3 Ml Syringe SC 12/13/24 06:59 30 mg QDAY TRUDI Administration Glucagon 1 mg 12/03/24 17:37 Glucagon Inj 1 Mg Vial IM Q15MIN PRN BG <70, and no IV access Hydromorphone HCl 1 mg 11/30/24 16:47 11/30/24 18:18 Hydromorphone Inj 2 Mg/Ml Vial IVP 12/05/24 16:46 1 mg Q4HR PRN Administration Pain or agitation Fentanyl Citrate 2,500 mcg in 250 mls @ 2.5 mls/hr 12/01/24 10:56 12/04/24 11:00 Sublimaze Inj 2,500 Mcg/250 Ml Bag IV 12/06/24 10:55 225 mcg/hr .Q24H PRN 22.5 mls/hr PER PROTOCOL Titration Protocol 25 MCG/HR Piperacillin/Tazobactam/Dextrose 3.375 gm in 50 mls @ 12.5 mls/hr 12/03/24 22:00 12/04/24 11:12 Zosyn IV 12/10/24 21:59 Infused Q8HR TRUDI Infusion Protocol Insulin Degludec 20 unit 12/04/24 09:15 12/04/24 09:56 Insulin Degludec 5 Unit/0.05 Ml (Per 5 Units) SC 01/03/25 09:14 20 unit BID TRUDI Administration Insulin Human Lispro 0 unit 12/04/24 09:12 Insulin Lispro (Admelog) 1 Unit/0.01 Ml Unit SC 01/02/25 17:59 Q6HR TRUDI Protocol Levothyroxine Sodium 68 mcg 11/28/24 22:25 12/04/24 09:55 Levothyroxine Inj 100 Mcg Vial IV 12/28/24 22:24 68 mcg DAILY TRUDI Administration Ondansetron HCl 4 mg 11/28/24 20:00 Ondansetron Inj 2 Mg/Ml Inj 2 Ml IVP 12/28/24 19:59 Q6H PRN NAUSEA OR VOMITING Protocol Pharmacy Consult 1 each 11/29/24 09:00 12/04/24 09:33 Pharmacy Renal Dose Adjustment 1 Ea XX 12/29/24 08:59 Not Given QDAY TRUDI Sodium Chloride 5 ml 11/28/24 19:36 Sodium Chloride Rt 10% 15 Ml Nebu INH 12/28/24 19:35 X1 PRN SPUTUM CLEARANCE Plan 29-year-old female with poorly controlled type 1 diabetes, hypothyroidism, and polysubstance use admitted to ICU for DKA complicated by cardiac arrest, now post-ROSC. Goals of care Dr. 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 The family was thoroughly informed about the patient's current neurological status and the extent of the anoxic brain injury. The patient?s prognosis and potential next steps were discussed in detail. The following options were presented to the family: Tracheostomy and PEG tube placement for long-term respiratory and nutritional support. Care Home Facility for continued care.Comfort care as an alternative, should the family decide that aggressive interventions would not align with the patient?s values or wishes. The family was provided ample time to ask questions and discuss the information presented. At this time, the family has not yet made a decision regarding the next steps in care.Neurology was consulted to provide a further detailed review and explanation of the patient?s neurological status, ensuring the family had a comprehensive understanding of the patient?s condition and prognosis. A request for evaluation from the Neuro ICU at [facility] was made via phone with transfer center. After reviewing the patient's clinical presentation and brain imaging, it was concluded that no further interventions could be offered, and there is no indication for transfer at this time. The organ procurement organization has contacted the patient?s family, who have provided informed consent for organ donation on 12/03. Neurology #Acute encephalopathy #Anoxic brain injury DDx: Post cardiac arrest (down time of 19 minutes) vs metabolic due to diabetic ketoacidosis vs substance intoxication vs severe hyperglycemia vs metabolic acidosis vs hypovolemia. Diagnostic Test: - CT head (11/29): Extensive areas of early infarction in left middle cerebral artery distribution and both occipital lobes. - MRI 11/30: Diffuse anoxic brain injury. - CT head 12/01: Increasing cerebral edema, concern for impending herniation. - CT head 12/03: No change from previous. No significant change in extensive anoxic ischemic change. Treatment Plan: - Goals of care discussion with family. - Fentanyl titrated for comfort. - Discontinued lab draws per patient's family request. - Continue with ventilator as patient cannot protect airway. - No neurosurgery intervention recommended by Neuro ICU at [facility]. #Hypernatremia (uptrending) DDx: lack of free water administration with tube feeds vs central diabetes insipidus from brain injury. Diagnostic Test: - Sodium level 149 --> 151 --> 152 --> 150 --> 153 --> 154 --> 158. Treatment Plan: - Discontinued lab draws per patient's family request. - Given patient's current brain injury, will not aggressively correct since hypotonic solutions can worsen cerebral edema. Cardiovascular #Hypertension, acute (resolved) Suspected due to beginnings of herniation in setting of diffuse cerebral edema. Initial associate bradycardia that changed to tachycardia. Overnight BP was as high as 190/115. Labetalol and hydralazine provided temporary relief. Treatment plan: - Discontinue Labetalol. #Sinus tachycardia (resolved) Etiologies include reactive to pain, cerebral edema, infection. 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 #S/p cardiac arrest - ROSC in 20 minutes leading to anoxic brain injury #Shock likely mixed hypvolemic and distributive (resolved) Likely etiologies include severe acidosis, hyperkalemia, and vasodilation. Code blue start 1904, ROSC at 1924. Patient received 2 rounds of Epinephrine during code blue. Initial rhythm noted to be PEA. Diagnostic Test: - Initial potassium level 7.4. - Initial ABG: pH 6.89, pCO2 20, pO2 300, HCO3 4. - Bedside echo showed adequate LV contractility. Treatment Plan: - Fentanyl for patient comfort. Respiratory #Intubated and mechanically ventilated for airway protection Diagnostic Test: - CXR: No aspiration pneumonia or pulmonary edema. - ABGs: 11/28 19:52: pH 6.89/pCO2 20/pO2 300/HCO3 4 11/28 21:00: pH 7.02/pCO2 19/pO2 261/HCO3 5 11/28 01:28: pH 7.36/pCO2 23/pO2 132/HCO3 13 11/28 04:19: pH 7.46/pCO2 36/pO2 97/HCO3 26 11/29 12:21: pH 7.56/pCO2 32/pO2 74/HCO3 29 11/30 04:46: pH 7.45/pCO2 35/pO2 131/HCO3 24 - Patient's GCS is 5T - Gag reflex intact. - Patient unable to protect airway due to mental status. Treatment Plan: - Continue ventilation: A/CMV PRVC. Settings PEEP 5.0, FiO2 25, RR 26, VT 403. - Adjust ventilation as needed. - Need GCS > 8 for extubation. #Possible strep pyogenes respiration infection DDx: concern for aspiration pneumonia given patient is intubated. Diagnostic Test: - CXR 11/29: no pneumonia seen. - Sputum culture 11/28: strep pyogenes, sensitive to Rocephin. Treatment Plan: - Discontinue Rocephin 1g daily for 7 days (11/29 -12/03). - Started Zosyn to prevent surgical site infections for organ donation. (12/04-) GI and F/E/N #Hepatitis (resolving) Likely secondary to ischemic hepatitis. DDx: decreased perfusion, severe dehydration, hypotension, metabolic acidosis from DKA and cardiac arrest. Diagnostic Test: - AST > 1000 --> 1883 --> 1344 --> 415 --> 153 --> 90. - ALT 483 --> 665 --> 842 --> 603 --> 386 --> 249. - Hepatitis panel non reactive. Treatment Plan: - No management at this time. - Monitor LFTs. Renal #Hypokalemia (resolved) Likely due to the insulin driving potassium into the cells. Diagnostic Test: - Potassium level of 2.9 on 12/02 AM labs. Treatment Plan: - No lab draws, focus on patient's comfort. #Mixed acid-base disorder (resolved) #Anion gap metabolic acidosis with non-compensatory respiratory acidosis (resolved) #Respiratory alkalosis (resolved) Diagnostic Test: - 11/28 19:52: Initial ABG: pH 6.89/pCO2 20/pO2 300/HCO3 4. Interpretation: metabolic acidosis with anion gap of 35. Using Winter's Formula (with HCO3 from CMP): Predicted pCO2 range = 21-25. The observed pCO2 of 20 is not compensatory, suggesting anion gap metabolic acidosis with non-compensatory respiratory acidosis. - Subsequent ABG (11/28 20:15): pH 7.02/pCO2 19/pO2 261/HCO3 5. Interpretation: falsely low pCO2 likely due to Kussmaul breathing. The patient's respiratory effort (deep, labored breathing) likely underestimates pCO2 and actual value is expected to be higher. - Trends in ABGs: over the following hours, the patient developed respiratory alkalosis, likely induced by insulin and bicarbonate, which can lower CO2. The ventilatory settings were adjusted to help counteract this alkalosis. RR was reduced from 22 to 15 bpm to allow CO2 retention and avoid excessive alkalosis. - Most recent AB/9 pH 7.47/pCO2 35/pO2 110/HCO3 26. Treatment Review: - pCO2 remained low despite ventilator adjustments, acetazolamide 500 mg x1 and LR given. - pH, serum bicarbonate and pCO2 as normalized. - Anion gap has closed twice. Treatment Plan: - No lab draws, focus on patient's comfort. #Mixed-type lactic acidosis, in the setting of DKA (resolved) Likely multifactorial. DDx: type A from hypoperfusion/hypoxia related to hypovolemia due to DKA- associated osmotic diuresis and cardiac arrest, type B from hepatic dysfunction, stimulant/toxin use. Diagnostic test: - ABGs - metabolic acidosis with elevated anion gap and lactate. - Urine toxicology positive for methamphetamine and cocaine. - LFTs: AST > 1000, ALT 665, consistent with possible ischemic hepatitis. - Blood cultures: Strep pyogenes positive. Treatment Plan: - No lab draws, focus on patient's comfort. Treatment Review: - IV fluid hydration per DKA protocol. (Completed) - IV insulin infusion, titrated to close anion gap. (Completed) #Acute kidney injury (resolved) Likely prerenal secondary to dehydration and cardiac arrest. Diagnostic Test: - Baseline Cr 1.1. - Admission Cr 3.6 --> 3.5 --> 2.7 --> 1.8 --> 1.6 --> 1.3. - Urine output: 45cc/hr. Treatment Plan: - No lab draws, focus on patient's comfort. Heme #Leukocytosis DDx: reactive vs secondary to UTI. Likely secondary to hemoconcentration at this time. Diagnostic Test: - WBC 36.8 --> 25.3 --> 22.2 --> 15.7 --> 10.3 --> 15.4. - Highest temp overnight 100.8F, managed with cooling measures. Treatment Plan: - No lab draws. #Anemia No signs of bleeds. Diagnostic Test: - Hgb: 13.3 --> 12.0 --> 10.9 --> 11.2 --> 11.0 --> 10.6 --> 8.6 --> 8.8. Treatment Plan: - No lab draws. Endo #Insulin-dependent diabetes mellitus type 1 #Diabetic ketoacidosis (resolved) #Hyperglycemia (improving) Secondary to noncompliance with diabetes medication. Diagnostic Test: - Beta hydroxybutyrate > 6.4 , blood glucose 1258, anion gap 35. - Refer to above for ABG results. Treatment Plan: - Increased Insulin degludec 15 units twice daily to 20 units twice daily for better glycemic control. - Insulin sliding scalre (step 3). Treatment Review: - Insulin ggt per DKA protocol (completed). - Anion gap has closed twice. #History of hypothyroidism Diagnostic Test: - TSH 7.10, Free T4 1.03. - On Levothyroxine 88 mcg p.o. daily at home. Treatment Plan: - Continue IV Levothyroxine 68mcg, will discontinue tomorrow once start comfort care. ID #Micrococcus species bacteremia (ruled out) Final blood culture showed Micrococcus species. Unclear if true infection or contamination. Diagnostic Test: - Urine in the [place] has a lot of sediment and appears turbid. - Urine culture negative for UTI, ruled out. - Repeat UA positive for leukocyte esterase and WBCs. - GPC positive from both bottles. - Repeat blood cultures showed no growth. Treatment Plan: - No antibiotics needed. Health maintenance: Disposition: Admit to ICU for DKA management and post-cardiac arrest. DVT prophylaxis: Enoxaparin 30mg SC daily (renally dosed). GI prophylaxis: none Diet: Tube feeds Johnston: present Central line: right internal jugular vein Vent: A/CMV PRVC Code status: DNR. Patient discussed with my senior resident Dr. Solano and attending, Dr. Smallwood. Landry Nielsen DO, PGY 1
[2024-12-04 11:17] LABS: Basophils # (Auto) 0.0 Thou/mm3 (0.0-0.2); Basophils % (Auto) 0 % (0-2.5); Eosinophils # (Auto) 0.5 Thou/mm3 (0.0-0.5); Eosinophils % (Auto) 3 % (0-10); Hematocrit 32.4 % (36.0-46.0); Hemoglobin 10.2 g/dL (12.0-16.0); Immature Granulocytes Auto 0.18 Thou/mm3 (0.00-0.00); Lymphocytes # (Auto) 3.7 Thou/mm3 (1.0-4.8); Lymphocytes % (Auto) 21 % (10-50); Mean Corpuscular HGB Conc 31.5 g/dl (31.0-37.0); Mean Corpuscular Hemoglobin 28.7 pg (25.0-35.0); Mean Corpuscular Volume 91 fL (80-100); Monocytes # (Auto) 1.6 Thou/mm3 (0.0-0.8); Monocytes % (Auto) 9 % (0-12); Neutrophils # (Auto) 11.8 Thou/mm3 (1.8-7.7); Neutrophils % (Auto) 67 % (37-80); Nucleated Red Blood Cell # 0.00 Thou/mm3 (0.00-0.00); Nucleated Red Blood Cell % 0 /100 WBC (0); Platelet Count 174 Thou/mm3 (140-440); RDW Standard Deviation 48.6 fL (36.4-46.3); Red Blood Count 3.56 Miln/mm3 (4.00-5.20); White Blood Count 17.7 Thou/mm3 (3.6-11.0)
--- NOTE | 2024-12-04 11:32 | ESOP_ITS ---
<Statement entered by Claude Smallwood MD - 12/05/24 10:18> I was present for the critical and inman portions of the procedure and was immediately available to provide assistance. PROCEDURES: Procedure Date / Time 12/04/24 1000 Arterial Line Indication(s): frequent arterial line sampling and other (Minute vitals per Organ donor network) Informed consent obtained: obtained from surrogate decision maker Time out done, and the following verified: correct patient, side and site, procedure, patient position and implants and/or equipment Size (Gauge): 20 Technique used: guide wire technique Post-Procedure: line sutured into place and dry sterile dressing placed Patient tolerated procedure: well EBL(ml): 5 Complications: none Site: right and radial Procedure comment: Procedure performed by Dr. Smallwood. Assistance by Dr. Solano. Procedure performed under US guidance, with local lidocaine anesthetic and fentanyl drip. Kwame Solano MD PGY-2
--- NOTE | 2024-12-04 12:00 | XR_ITS ---
EXAMINATION: AP chest single view TECHNIQUE: AP portable supine chest single view Date and time: December 04, 2024, 1140 hours, comparison December 04, 2024, 0552 hours INDICATIONS: Organ donor FINDINGS: Normal heart size Endotracheal tube right central line and orogastric tube satisfactory position. No interval pneumonia or pulmonary edema. IMPRESSION: No interval pneumonia or pulmonary edema.
[2024-12-04 12:27] LABS: Alanine Aminotransferase 154 U/L (10-49); Albumin, Serum 3.6 gm/dL (3.5-5.0); Albumin/Globulin Ratio 1.4 (1.2-2.2); Alkaline Phosphatase 103 U/L (46-116); Anion Gap 11 (7-16); Aspartate Amino Transferase 70 U/L (0-34); BUN/Creatinine Ratio 21 Ratio (12-20); Bilirubin,Direct 0.1 mg/dL (0.0-0.3); Bilirubin,Total 0.3 mg/dL (0.3-1.2); Blood Urea Nitrogen 19 mg/dL (9-23); Calcium 8.8 mg/dL (8.3-10.6); Calcium (Corrected) 9.1 mg/dL (8.5-10.1); Carbon Dioxide 25.0 mMol/L (20.0-31.0); Chloride 120 mMol/L (98-107); Creatine Kinase 72 U/L (34-171); Creatinine (Component) 0.9 mg/dL (0.6-1.3); Estimated Creatinine Clearance 93.6 mL/min (>60); Globulin 2.6 gm/dL (2.3-3.5); Glucose 246 mg/dL (74-106); Magnesium 2.5 mg/dL (1.6-2.6); Osmolality,Calculated 319 (275-295); Phosphorous 3.6 mg/dL (2.4-5.1); Potassium 3.8 mMol/L (3.4-5.1); Sodium 156 mMol/L (136-145); Total Protein 6.2 gm/dL (5.7-8.2); Troponin I 0.025 ng/mL (0.0-0.045); eGFR > 60 See Note
[2024-12-04 12:47] LABS: LDH (Lactate Dehydrogenase) 610 U/L (120-246)
[2024-12-04 13:07] LABS: INR 1.0 (0.9-1.3); Partial Thromboplastin Time 20.0 Seconds (22.0-36.0); Prothrombin Time 10.3 Seconds (9.0-12.2)
[2024-12-04] MEDS: fentaNYL 2,500 MCG/250 ML BAG 2,500 MCG/250 ML BAG 17.5 MCG IV (13:50)
[2024-12-04 13:58] LABS: Base Excess 3 (-3-3); HCO3 27 mEq/L (20-26); Inspired Oxygen, FIO2 25 %; O2 Saturation 97 % (91-98); PCO2 37 mmHg (32.0-48.0); PO2 81 mmHg (83-108); pH, Arterial 7.47 (7.35-7.45)
[2024-12-04 13:59] LABS: Puncture Site Arterial Line
[2024-12-04 16:17] LABS: Collection Type, Urine Catheter
[2024-12-04 16:32] LABS: Bilirubin,Urine Negative (Negative); Blood,Urine Negative (Negative); Clarity,Urine Clear (Clear/Hazy); Color,Urine Lt-Yellow (Lt Yel-Yel); Glucose, Urine 4+ (Negative); Ketones,Urine Negative (Negative); Leukocyte Esterase,Urine Negative (Negative); Nitrite,Urine Negative (Negative); PH,Urine 6.5 (5.0-7.0); Protein,Urine Trace (Neg - Trace); RBC,Urine 15 /hpf (0-3); Squamous Epithelial Cell,Urine < 1 /hpf (0-5); Urobilinogen,Urine Negative mg/dL (0.0-1.0); WBC,Urine 1 /hpf (0-5)
--- NOTE | 2024-12-04 16:33 | PC.SS ---
[facility] inquired with SS regarding keepsakes for family, primarily for patient's 10YO daughter to have, such as canvas, nela mold, or grief/bereavement activities for youth. SS consulted with Care Machine Operator Hay Stacker SR, at this time SS does not offer keepsakes for families. SS informed [facility]. [facility] stated comfort care will be initiated at 1100 on 12/05.
[2024-12-04 16:37] LABS: Specific Gravity,Urine 1.010 (1.001-1.035)
--- NOTE | 2024-12-04 17:22 | PC.NURSE ---
Donor Network has been active on patient's case. Family came by to visit with patient. At this time patient comfortably in bed.
[2024-12-04 17:44] LABS: Base Excess 4 (-3-3); HCO3 28 mEq/L (20-26); Inspired Oxygen, FIO2 100 %; O2 Saturation 101 % (91-98); PCO2 38 mmHg (32.0-48.0); PO2 416 mmHg (83-108); pH, Arterial 7.47 (7.35-7.45)
[2024-12-04 17:48] LABS: Allen Test Not Performed; Puncture Site Arterial Line
--- NOTE | 2024-12-04 18:00 | XR_ITS ---
EXAMINATION: AP chest single view TECHNIQUE: AP portable supine chest single view Date and time: December 04, 2024, 1757 hours, comparison December 04, 2024 11:40 a.m. INDICATIONS: Organ donation FINDINGS: No interval pneumonia or pulmonary edema. Normal heart size. Endotracheal tube tip 5 cm above venancio. Right internal jugular central line tip SVC The orogastric tube is in the stomach, the tip is below the level of the film IMPRESSION: No interval pneumonia or pulmonary edema
[2024-12-04 18:16] LABS: Basophils # (Auto) 0.0 Thou/mm3 (0.0-0.2); Basophils % (Auto) 0 % (0-2.5); Eosinophils # (Auto) 0.5 Thou/mm3 (0.0-0.5); Eosinophils % (Auto) 4 % (0-10); Hematocrit 26.9 % (36.0-46.0); Immature Granulocytes Auto 0.13 Thou/mm3 (0.00-0.00); Lymphocytes # (Auto) 2.5 Thou/mm3 (1.0-4.8); Lymphocytes % (Auto) 20 % (10-50); Mean Corpuscular HGB Conc 32.0 g/dl (31.0-37.0); Mean Corpuscular Hemoglobin 29.0 pg (25.0-35.0); Mean Corpuscular Volume 91 fL (80-100); Monocytes # (Auto) 1.1 Thou/mm3 (0.0-0.8); Monocytes % (Auto) 9 % (0-12); Neutrophils # (Auto) 8.2 Thou/mm3 (1.8-7.7); Neutrophils % (Auto) 66 % (37-80); Nucleated Red Blood Cell # 0.00 Thou/mm3 (0.00-0.00); Nucleated Red Blood Cell % 0 /100 WBC (0); Platelet Count 157 Thou/mm3 (140-440); RDW Standard Deviation 47.8 fL (36.4-46.3); Red Blood Count 2.97 Miln/mm3 (4.00-5.20); White Blood Count 12.3 Thou/mm3 (3.6-11.0)
[2024-12-04 18:29] LABS: HIV (1&2) Antibody Rapid Non-Reactive
[2024-12-04 18:39] LABS: Alanine Aminotransferase 118 U/L (10-49); Albumin, Serum 2.9 gm/dL (3.5-5.0); Albumin/Globulin Ratio 1.6 (1.2-2.2); Alkaline Phosphatase 81 U/L (46-116); Anion Gap 11 (7-16); Aspartate Amino Transferase 55 U/L (0-34); BUN/Creatinine Ratio 21 Ratio (12-20); Bilirubin,Direct < 0.1 mg/dL (0.0-0.3); Bilirubin,Total 0.2 mg/dL (0.3-1.2); Blood Urea Nitrogen 17 mg/dL (9-23); Calcium 8.0 mg/dL (8.3-10.6); Calcium (Corrected) 8.9 mg/dL (8.5-10.1); Carbon Dioxide 26.0 mMol/L (20.0-31.0); Chloride 121 mMol/L (98-107); Creatine Kinase 65 U/L (34-171); Creatinine (Component) 0.8 mg/dL (0.6-1.3); Estimated Creatinine Clearance 105.3 mL/min (>60); Globulin 1.8 gm/dL (2.3-3.5); Glucose 219 mg/dL (74-106); Hemoglobin 8.6 g/dL (12.0-16.0); LDH (Lactate Dehydrogenase) 530 U/L (120-246); Magnesium 2.4 mg/dL (1.6-2.6); Osmolality,Calculated 321 (275-295); Phosphorous 3.2 mg/dL (2.4-5.1); Potassium 3.5 mMol/L (3.4-5.1); Sodium 158 mMol/L (136-145); Total Protein 4.7 gm/dL (5.7-8.2); Troponin I < 0.020 ng/mL (0.0-0.045); eGFR > 60 See Note
[2024-12-04 18:42] LABS: INR 1.0 (0.9-1.3); Partial Thromboplastin Time 21.9 Seconds (22.0-36.0); Prothrombin Time 10.6 Seconds (9.0-12.2)
--- NOTE | 2024-12-04 21:28 | PD.RESEVENT ---
Documentation for date of: 12/04/24 Event Note Event Note: 21:25 Hyperosmolar HyperNatremia : Na 155 -> 156 -> 158 , Osm >300 Started D5W 500cc x1 bag @ 100 cc/h Changed step 3 insulin Lispro sliding scale to q4H to optimize, as blood sugars are still >250 and will likely worsen with D5 Will follow up Na on Chem panel q6H and correct electrolytes as needed. Will also get q6H CXR as requested, for adequate monitoring for organ donation shola. Plan of care discussed with attending Dr Pedersen - Zaid Stoo M.D. PGY3
[2024-12-04] MEDS: DEXTROSE 5%-WATER 500 ML 100 ML IV (21:34)
[2024-12-04 23:42] LABS: Base Excess 4 (-3-3); HCO3 28 mEq/L (20-26); Inspired Oxygen, FIO2 25 %; O2 Saturation 99 % (91-98); PCO2 38 mmHg (32.0-48.0); PO2 116 mmHg (83-108); pH, Arterial 7.47 (7.35-7.45)
[2024-12-04 23:46] LABS: Allen Test Performed/OK; Puncture Site Arterial Line
[2024-12-05] VITALS (59 sets, daily range): BP systolic 72–300; BP diastolic 60–300; PULSE 60–133; RESP 6–28; TEMP 36.7–37.5; O2SAT 68–100; BMI 30.9
--- NOTE | 2024-12-05 | XR_ITS ---
EXAMINATION: AP chest single view TECHNIQUE: AP portable semiupright chest single view Date and time: December 05, 2024, 0058 hours, comparison December 04, 2024 INDICATIONS: Organ donation FINDINGS: No interval pneumonia or pulmonary edema Right internal jugular central line tip SVC satisfactory position Endotracheal tube tip 5.2 cm above venancio. The orogastric tube is in the stomach, the tip is below the level of the film IMPRESSION: No interval pneumonia or pulmonary edema
[2024-12-05 00:24] LABS: Base Excess 3 (-3-3); HCO3 27 mEq/L (20-26); O2 Saturation 101 % (91-98); PCO2 36 mmHg (32.0-48.0); PO2 377 mmHg (83-108); pH, Arterial 7.49 (7.35-7.45)
[2024-12-05 00:26] LABS: Allen Test Performed/OK; Inspired Oxygen, FIO2 100 %; Puncture Site Arterial Line
[2024-12-05 00:31] LABS: Basophils # (Auto) 0.0 Thou/mm3 (0.0-0.2); Basophils % (Auto) 0 % (0-2.5); Eosinophils # (Auto) 0.5 Thou/mm3 (0.0-0.5); Eosinophils % (Auto) 4 % (0-10); Hematocrit 27.7 % (36.0-46.0); Immature Granulocytes Auto 0.12 Thou/mm3 (0.00-0.00); Lymphocytes # (Auto) 3.1 Thou/mm3 (1.0-4.8); Lymphocytes % (Auto) 24 % (10-50); Mean Corpuscular HGB Conc 31.8 g/dl (31.0-37.0); Mean Corpuscular Hemoglobin 28.9 pg (25.0-35.0); Mean Corpuscular Volume 91 fL (80-100); Monocytes # (Auto) 1.2 Thou/mm3 (0.0-0.8); Monocytes % (Auto) 10 % (0-12); Neutrophils # (Auto) 7.7 Thou/mm3 (1.8-7.7); Neutrophils % (Auto) 61 % (37-80); Nucleated Red Blood Cell # 0.00 Thou/mm3 (0.00-0.00); Nucleated Red Blood Cell % 0 /100 WBC (0); Platelet Count 159 Thou/mm3 (140-440); RDW Standard Deviation 48.1 fL (36.4-46.3); Red Blood Count 3.04 Miln/mm3 (4.00-5.20); White Blood Count 12.7 Thou/mm3 (3.6-11.0)
[2024-12-05 00:52] LABS: Alanine Aminotransferase 108 U/L (10-49); Albumin, Serum 3.1 gm/dL (3.5-5.0); Albumin/Globulin Ratio 1.6 (1.2-2.2); Alkaline Phosphatase 82 U/L (46-116); Anion Gap 9 (7-16); Aspartate Amino Transferase 58 U/L (0-34); BUN/Creatinine Ratio 20 Ratio (12-20); Bilirubin,Direct < 0.1 mg/dL (0.0-0.3); Bilirubin,Total 0.2 mg/dL (0.3-1.2); Blood Urea Nitrogen 16 mg/dL (9-23); Calcium 8.3 mg/dL (8.3-10.6); Calcium (Corrected) 9.0 mg/dL (8.5-10.1); Carbon Dioxide 26.3 mMol/L (20.0-31.0); Chloride 120 mMol/L (98-107); Creatine Kinase 61 U/L (34-171); Creatinine (Component) 0.8 mg/dL (0.6-1.3); Estimated Creatinine Clearance 105.3 mL/min (>60); Globulin 2.0 gm/dL (2.3-3.5); Glucose 230 mg/dL (74-106); Magnesium 2.3 mg/dL (1.6-2.6); Osmolality,Calculated 315 (275-295); Phosphorous 3.3 mg/dL (2.4-5.1); Potassium 3.4 mMol/L (3.4-5.1); Sodium 155 mMol/L (136-145); Total Protein 5.1 gm/dL (5.7-8.2); Troponin I < 0.020 ng/mL (0.0-0.045); eGFR > 60 See Note
[2024-12-05 01:03] LABS: Hemoglobin 8.8 g/dL (12.0-16.0); LDH (Lactate Dehydrogenase) 531 U/L (120-246)
[2024-12-05 01:51] LABS: INR 1.0 (0.9-1.3); Partial Thromboplastin Time 20.0 Seconds (22.0-36.0); Prothrombin Time 10.3 Seconds (9.0-12.2)
[2024-12-05] MEDS: INSULIN LISPRO (AdmeLOG) 1 UNIT/0.01 ML UNIT SC (02:23)
[2024-12-05] MEDS: fentaNYL 2,500 MCG/250 ML BAG 2,500 MCG/250 ML BAG 17.5 MCG IV (03:35)
--- NOTE | 2024-12-05 06:00 | XR_ITS ---
EXAMINATION: AP chest single view TECHNIQUE: AP portable semiupright chest single view Date and time: December 05, 2024, 0651 hours, comparison December 05, 202457 hours INDICATIONS: Organ donation FINDINGS: No interval pneumonia or pulmonary edema Normal heart size Tracheal tube tip 5.6 cm above venancio. Right internal jugular central line tip SVC satisfactory position The orogastric tube is in the stomach IMPRESSION: No interval pneumonia or pulmonary edema
[2024-12-05 06:09] LABS: Basophils # (Auto) 0.0 Thou/mm3 (0.0-0.2); Basophils % (Auto) 0 % (0-2.5); Eosinophils # (Auto) 0.6 Thou/mm3 (0.0-0.5); Eosinophils % (Auto) 4 % (0-10); Hematocrit 27.2 % (36.0-46.0); Immature Granulocytes Auto 0.16 Thou/mm3 (0.00-0.00); Lymphocytes # (Auto) 2.8 Thou/mm3 (1.0-4.8); Lymphocytes % (Auto) 22 % (10-50); Mean Corpuscular HGB Conc 32.4 g/dl (31.0-37.0); Mean Corpuscular Hemoglobin 29.4 pg (25.0-35.0); Mean Corpuscular Volume 91 fL (80-100); Monocytes # (Auto) 1.2 Thou/mm3 (0.0-0.8); Monocytes % (Auto) 9 % (0-12); Neutrophils # (Auto) 8.2 Thou/mm3 (1.8-7.7); Neutrophils % (Auto) 63 % (37-80); Nucleated Red Blood Cell # 0.00 Thou/mm3 (0.00-0.00); Nucleated Red Blood Cell % 0 /100 WBC (0); Platelet Count 198 Thou/mm3 (140-440); RDW Standard Deviation 47.4 fL (36.4-46.3); Red Blood Count 2.99 Miln/mm3 (4.00-5.20); White Blood Count 12.9 Thou/mm3 (3.6-11.0)
[2024-12-05 06:11] LABS: Collection Type, Urine Catheter
[2024-12-05 06:14] LABS: Hemoglobin 8.8 g/dL (12.0-16.0)
[2024-12-05] MEDS: PIPER/TAZO 3.375 GM PREMIX 3.375 GM/50 ML BAG IV (06:15)
[2024-12-05 06:24] LABS: INR 1.0 (0.9-1.3); Partial Thromboplastin Time 21.1 Seconds (22.0-36.0); Prothrombin Time 10.7 Seconds (9.0-12.2)
[2024-12-05 06:36] LABS: Bilirubin,Urine Negative (Negative); Blood,Urine Negative (Negative); Clarity,Urine Clear (Clear/Hazy); Color,Urine Yellow (Lt Yel-Yel); Glucose, Urine 3+ (Negative); Ketones,Urine Trace (Negative); Leukocyte Esterase,Urine Negative (Negative); Nitrite,Urine Negative (Negative); PH,Urine 6.0 (5.0-7.0); Protein,Urine 1+ (Neg - Trace); RBC,Urine 4 /hpf (0-3); Squamous Epithelial Cell,Urine < 1 /hpf (0-5); Urobilinogen,Urine Negative mg/dL (0.0-1.0); WBC,Urine 10 /hpf (0-5)
[2024-12-05 06:51] LABS: Specific Gravity,Urine 1.025 (1.001-1.035)
[2024-12-05 06:58] LABS: Alanine Aminotransferase 104 U/L (10-49); Albumin, Serum 3.0 gm/dL (3.5-5.0); Albumin/Globulin Ratio 1.6 (1.2-2.2); Alkaline Phosphatase 78 U/L (46-116); Anion Gap 11 (7-16); Aspartate Amino Transferase 58 U/L (0-34); BUN/Creatinine Ratio 26 Ratio (12-20); Bilirubin,Direct < 0.1 mg/dL (0.0-0.3); Bilirubin,Total 0.2 mg/dL (0.3-1.2); Blood Urea Nitrogen 18 mg/dL (9-23); Calcium 8.1 mg/dL (8.3-10.6); Calcium (Corrected) 8.9 mg/dL (8.5-10.1); Carbon Dioxide 26.6 mMol/L (20.0-31.0); Chloride 121 mMol/L (98-107); Creatine Kinase 58 U/L (34-171); Creatinine (Component) 0.7 mg/dL (0.6-1.3); Estimated Creatinine Clearance 120.3 mL/min (>60); Globulin 1.9 gm/dL (2.3-3.5); Glucose 120 mg/dL (74-106); LDH (Lactate Dehydrogenase) 554 U/L (120-246); Magnesium 2.4 mg/dL (1.6-2.6); Osmolality,Calculated 317 (275-295); Phosphorous 3.1 mg/dL (2.4-5.1); Potassium 3.3 mMol/L (3.4-5.1); Sodium 159 mMol/L (136-145); Total Protein 4.9 gm/dL (5.7-8.2); Troponin I < 0.020 ng/mL (0.0-0.045); eGFR > 60 See Note
--- NOTE | 2024-12-05 07:00 | PC.NURSE ---
[facility] Supervisor Net Making to follow up with plan of care, meds, and labs ordered prior to extuabtion to comfort care. Family aware and kept up to date by organ dinor representatives. Per family no further questions regarding plan of care.
[2024-12-05 07:02] LABS: Base Excess 4 (-3-3); HCO3 28 mEq/L (20-26); Inspired Oxygen, FIO2 25 %; O2 Saturation 99 % (91-98); PCO2 36 mmHg (32.0-48.0); PO2 110 mmHg (83-108); pH, Arterial 7.49 (7.35-7.45)
[2024-12-05 07:13] LABS: Allen Test Performed/OK; Puncture Site Left Radial
[2024-12-05 07:25] LABS: Base Excess 3 (-3-3); HCO3 28 mEq/L (20-26); Inspired Oxygen, FIO2 100 %; O2 Saturation 93 % (91-98); PCO2 41 mmHg (32.0-48.0); PO2 63 mmHg (83-108); pH, Arterial 7.44 (7.35-7.45)
[2024-12-05 07:26] LABS: Puncture Site Left Radial
[2024-12-05 07:27] LABS: Allen Test Performed/OK
[2024-12-05] MEDS: DEXTROSE 5%-WATER 500 ML 100 ML IV (08:47)
[2024-12-05] MEDS: POTASSIUM CHL 10 mEq IVPB 10 MEQ/100 ML BAG 100 MEQ IV (10:28)
[2024-12-05] MEDS: ENOXAPARIN SOD INJ 30 MG/0.3 ML SYRINGE SC (10:28)
[2024-12-05 10:48] LABS: Basophils # (Auto) 0.0 Thou/mm3 (0.0-0.2); Basophils % (Auto) 0 % (0-2.5); Eosinophils # (Auto) 0.4 Thou/mm3 (0.0-0.5); Eosinophils % (Auto) 4 % (0-10); Hematocrit 29.7 % (36.0-46.0); Hemoglobin 9.5 g/dL (12.0-16.0); Immature Granulocytes Auto 0.15 Thou/mm3 (0.00-0.00); Lymphocytes # (Auto) 2.3 Thou/mm3 (1.0-4.8); Lymphocytes % (Auto) 19 % (10-50); Mean Corpuscular HGB Conc 32.0 g/dl (31.0-37.0); Mean Corpuscular Hemoglobin 29.2 pg (25.0-35.0); Mean Corpuscular Volume 91 fL (80-100); Monocytes # (Auto) 1.1 Thou/mm3 (0.0-0.8); Monocytes % (Auto) 9 % (0-12); Neutrophils # (Auto) 8.0 Thou/mm3 (1.8-7.7); Neutrophils % (Auto) 67 % (37-80); Nucleated Red Blood Cell # 0.00 Thou/mm3 (0.00-0.00); Nucleated Red Blood Cell % 0 /100 WBC (0); Platelet Count 209 Thou/mm3 (140-440); RDW Standard Deviation 47.8 fL (36.4-46.3); Red Blood Count 3.25 Miln/mm3 (4.00-5.20); White Blood Count 12.0 Thou/mm3 (3.6-11.0)
[2024-12-05 10:55] LABS: INR 1.0 (0.9-1.3); Partial Thromboplastin Time 21.4 Seconds (22.0-36.0); Prothrombin Time 10.6 Seconds (9.0-12.2)
[2024-12-05 10:55] LABS: Base Excess 3 (-3-3); HCO3 26 mEq/L (20-26); Inspired Oxygen, FIO2 21 %; O2 Saturation 100 % (91-98); PCO2 36 mmHg (32.0-48.0); PO2 339 mmHg (83-108); pH, Arterial 7.48 (7.35-7.45)
[2024-12-05 11:02] LABS: Allen Test Performed/OK; Puncture Site Left Radial
[2024-12-05 11:23] LABS: Alanine Aminotransferase 108 U/L (10-49); Albumin, Serum 3.3 gm/dL (3.5-5.0); Albumin/Globulin Ratio 1.7 (1.2-2.2); Alkaline Phosphatase 83 U/L (46-116); Anion Gap 10 (7-16); Aspartate Amino Transferase 63 U/L (0-34); BUN/Creatinine Ratio 24 Ratio (12-20); Bilirubin,Direct < 0.1 mg/dL (0.0-0.3); Bilirubin,Total 0.2 mg/dL (0.3-1.2); Blood Urea Nitrogen 17 mg/dL (9-23); Calcium 8.2 mg/dL (8.3-10.6); Calcium (Corrected) 8.8 mg/dL (8.5-10.1); Carbon Dioxide 26.7 mMol/L (20.0-31.0); Chloride 120 mMol/L (98-107); Creatine Kinase 67 U/L (34-171); Creatinine (Component) 0.7 mg/dL (0.6-1.3); Estimated Creatinine Clearance 120.8 mL/min (>60); Globulin 2.0 gm/dL (2.3-3.5); Glucose 153 mg/dL (74-106); LDH (Lactate Dehydrogenase) 594 U/L (120-246); Magnesium 2.3 mg/dL (1.6-2.6); Osmolality,Calculated 315 (275-295); Phosphorous 3.6 mg/dL (2.4-5.1); Potassium 3.4 mMol/L (3.4-5.1); Sodium 157 mMol/L (136-145); Total Protein 5.3 gm/dL (5.7-8.2); Troponin I < 0.020 ng/mL (0.0-0.045); eGFR > 60 See Note
[2024-12-05] MEDS: fentaNYL CIT INJ 50 mCg/ML AMP 2ML 87.5 MCG IVP ×3 (11:25→11:46)
--- NOTE | 2024-12-05 11:37 | PC.NURSE ---
per MD Hall hold first fentanyl dose until post extubation. First dose given at 1137 per MD hall. All additional doses of fentanyl comfirmed and ordered by md hall at shorter intervals. Pt currently air hungry and has stridor. Selin gave order to increase fent drip to 350.
[2024-12-05] MEDS: HEPARIN SOD INJ 5000 UNIT/ML VIAL 24570 UNIT IVP (11:52)
[2024-12-05] MEDS: fentaNYL CIT INJ 50 mCg/ML AMP 2ML 175 MCG IV ×3 (11:58→12:44)
[2024-12-05] MEDS: GLYCOPYRROLATE INJ 0.2 MG/ML VIAL 0.4 MG IV (11:58)
--- NOTE | 2024-12-05 11:58 | PC.NURSE ---
MD care transferred from [facility] to [facility]. Per Ayana ddo not give additional fentanyl doses unless pt is seen by md and authorizes dose. pt suctioned appropriately.
--- NOTE | 2024-12-05 13:08 | PC.NURSE ---
Per MD Wasiq only vital signs per family request. Family would like to have monitor on but no BP pressures at this time.
[2024-12-05] MEDS: fentaNYL CIT INJ 50 mCg/ML AMP 2ML 100 MCG IVP ×3 (13:14→18:09)
[2024-12-05] MEDS: DIAZEPAM INJ 5 MG/ML VIAL 2 ML 10 MG IVP ×10 (13:21→19:21)
--- NOTE | 2024-12-05 13:21 | PC.NURSE ---
Given Valium for air hunger and pt uncomfort. Pt O2 in 70's to 80's and with abnormal breathing and stridor. Pt air hunger improved after valium but still present.
--- NOTE | 2024-12-05 14:13 | EVENTNT_ITS ---
<Statement entered by Claude Smallwood MD - 12/16/24 08:02> TOTAL TIME: 45MINUTES ON DIRECT MEDICAL CARE, MANAGEMENT - COORDINATION AND COUNSELING > 50% OF TOTAL TIME I saw and evaluated the patient. I reviewed the resident?s note and agree with findings and plan as documented in the resident?s note. Documentation for date of: 12/05/24 Event Note Event Note: Left Radial Arterial line Attempt: Initially, consent was taken from the family again for left radial art line placement. In the morning, under the assistance of special programs director, , left radial arterial line was attempted twice by myself and twice by special programs director yumiko menjivar could not be placed due to patient's poor vasculature and multiple attempts were performed overnight with the subsequent possibility of clotting in her radial artery. Arterial line was required by organ donor team however due to unsuccessful attempt they were agreeable to follow up with blood pressure checks every minute later. Comfort care Boat Cleaning Supervisor, organ donation network team, Resident Physicians( PGY-3 and PGY-1), RT, RNRhiannon) and ICU charge nurse were present at the bedside when patient was placed on spontaneous breathing trial and then extubated at 11:35 AM. - Patient received fentanyl push 80 mcg at 11:36 AM immediately postextubation due to gasping. Fentanyl drip was continued at 175 mcg/h. - Another additional dose of fentanyl 80 mcgx1 was given at 11:40 due to distress. - At 11:46 AM, third dose of fentanyl 80 mcg x1 was administered due to continued distress. - Fentanyl dose was increased to double with fentanyl drip at 350 mcg and f entanyl push at 175 mcg. - At 11:58 AM, glycopyrrolate 0.4 mg IV was given x 1 due to excessive secretions. Additionaly, Fentanyl 175 mcg was given x 1. - At 12:14 PM ,Dose of fentanyl 175 mcg x 1 was given to reduce apneic episodes. - At 12:43 PM, Last dose of fentanyl 175 mcg was given x 1 due to continous stridor. - Patient passed the 90 minutes window time for organ donation. In total, kayla nt received 1115 mcg of fentanyl during those 90 minutes. - Patient did not qualify for organ donation and comfort care was continued. Comfort care set: - Currently patient is on Valium 10 mg every 30 minutes as needed for distress, fentanyl 100 mcg every 30 minutes bolus for pain and fentanyl drip at 350 mcg/h. Family is present at the bedside. - IV Valium was changed more frequent 10 mg q15 min due to air hunger/stridor with distress. Dilaudid 2 mg IV was given x1 as well. - Added Scopolamine patch for copious respiratory secretions. Patient was seen and discussed with special programs director, Dr. Selin Tubbs MD PGY-3
[2024-12-05] MEDS: HYDROmorphone INJ 2 MG/ML VIAL IVP ×7 (14:22→18:03)
[2024-12-05] MEDS: SCOPOLAMINE 1 MG TDSY TOP (14:49)
[2024-12-05] MEDS: fentaNYL 2,500 MCG/250 ML BAG 2,500 MCG/250 ML BAG 35 MCG IV (15:47)
--- NOTE | 2024-12-05 17:49 | PC.NURSE ---
Wasiq authorizing doses for comfort measures pt agnol breathing w stridor and air hungry , see ordered meds
[2024-12-05] MEDS: HYDROmorphone INJ 2 MG/ML VIAL 4 MG IVP (19:23)
--- NOTE | 2024-12-05 19:29 | PD.RESEVENT ---
Documentation for date of: 12/05/24 Event Note Event Note: 1930 Received sign out from day shift about pending cardiac arrest in order to proceed with organ donation. Patient has been on fentanyl gtt and was started on PRN diazepam 10mg q15 mins. Day shift also gave Dilaudid 2mg every 30 mins post extubation in order to maintain comfort levels. Patient continues to have a HR 72-79 bpm, RR 8-11 Will give Dilaudid 4mg x1 + Diazepam 10mg q15 PRN + Benadryl 25mg x1 Additional Q15min PRN Dilaudid 4mg added Plan of care discussed with attending Dr Pedersen, - Zaid Soto M.D. PGY3 Disclaimer: Minor errors in customer advocacy manager may be present as this note was dictated using voice recognition software.
--- NOTE | 2024-12-05 19:33 | ESPR_ITS ---
<Statement entered by Claude Smallwood MD - 12/16/24 08:03> TOTAL TIME: 45MINUTES ON DIRECT MEDICAL CARE, MANAGEMENT - COORDINATION AND COUNSELING > 50% OF TOTAL TIME I saw and evaluated the patient. I reviewed the resident?s note and agree with findings and plan as documented in the resident?s note. <Statement entered by Damian Tubbs MD - 12/06/24 08:04> Patient was seen in the ICU. Overnight her sodium went up therefore D5W was started. Sodium mildly improved. Patient had displacement of arterial line Hence, Initially, consent was taken from the family again for left radial art line placement. In the morning, under the assistance of box shook patcher, , left radial arterial line was attempted twice by myself and twice by box shook patcher however could not be placed due to patient's poor vasculature and multiple attempts were performed overnight with the subsequent possibility of clotting in her radial artery. Arterial line was required by organ donor team however due to unsuccessful attempt they were agreeable to follow up with blood pressure checks every minute later.Pie Icer Machine, organ donation network team, Resident Physicians( PGY-3 and PGY-1), RT, RNRhiannon) and ICU charge nurse were present at the bedside when patient was placed on spontaneous breathing trial and then extubated at 11:35 AM. - Patient received fentanyl push 80 mcg at 11:36 AM immediately postextubation due to gasping. Fentanyl drip was continued at 175 mcg/h. - Another additional dose of fentanyl 80 mcgx1 was given at 11:40 due to distress. - At 11:46 AM, third dose of fentanyl 80 mcg x1 was administered due to continued distress. - Fentanyl dose was increased to double with fentanyl drip at 350 mcg and fentanyl push at 175 mcg. - At 11:58 AM, glycopyrrolate 0.4 mg IV was given x 1 due to excessive secretions. Additionaly, Fentanyl 175 mcg was given x 1. - At 12:14 PM ,Dose of fentanyl 175 mcg x 1 was given to reduce apneic episodes. - At 12:43 PM, Last dose of fentanyl 175 mcg was given x 1 due to continous stridor. - Patient passed the 90 minutes window time for organ donation. In total, patient received 1115 mcg of fentanyl during those 90 minutes. - Patient did not qualify for organ donation and comfort care was continued. Comfort care set: - Currently patient is on Valium 10 mg every 30 minutes as needed for distress, fentanyl 100 mcg every 30 minutes bolus for pain and fentanyl drip at 350 mcg/h. Family is present at the bedside. - IV Valium was changed more frequent 10 mg q15 min due to air hunger/stridor with distress. Dilaudid 2 mg IV was given x1 as well. - Added Scopolamine patch for copious respiratory secretions. Patient was discussed with box shook patcher, Dr Selin Tubbs MD PGY3 Documentation for date of: 12/05/24 Subjective Subjective Interval history: 29-year-old female with a history of poorly controlled type 1 diabetes mellitus, multiple prior admissions for DKA, polysubstance use, hypothyroidism (methamphetamine and cocaine) presented to the ED on 11/28/2024 with complaints of feeling like she was ?in DKA? (per ED documentation). She had not taken Lantus for the past 3 days due to running out, though she continued using NovoLog. She also endorsed recent cocaine use. ED Course: -Initial vitals were: BP 110/82, HR 128, RR 24, T 100F, O2 saturation 98% on room air (FiO2 60%). -Labs significant for: only lab results available at the time was CBC which was remarkable for WBC 36.8, neutrophil predominant. Urine analysis showed rare bacteria, 4+ glucose and 3+ ketones. Urine toxicology positive for methamphetamine and cocaine. -Imaging included: none -In the ED, patient was given: 3L of LR. At 1905, the patient became unresponsive and a code blue was called. She was found to be in cardiac arrest. ACLS was initiated, including chest compressions, epinephrine, sodium bicarbonate, and intubation by the ED attending. ROSC was achieved at 1925. IO access was initially obtained, followed by successful placement of a central line. Post-ROSC labs: Electrolytes: Na 131 (L), K 7.4 (H), Cl 86 (L), HCO3 <10 (L), Anion gap 35 (H). Renal: BUN 47 (H), Cr 3.6 (H), eGFR 17 (L). Glucose: 1258 (H). Other: Ca 8.0 (L), Phos 18.8 (H), Mg 3.6 (H), AST >1000 (H), ALT 483 (H), Albumin 3.3 (L), beta-hydroxybutyrate >6.4 (H). She was found to be severely acidotic and started on bicarbonate drip. She was also hypotensive and started on vasopressors (Levophed and epinephrine). Insulin drip was initiated empirically for diabetic ketoacidosis. Due to ED physician's concern for unsterilized procedure marrufo in acute setting, patient was empirically started on Vancomycin and Zosyn. Patient was admitted to the ICU for continued resuscitation and management. Interval History: 12/05/2024: Overnight, the patient received one 500cc bag of D5W at 100 cc/hr for management of hypernatremia. Serum sodium improved from 158 to 155. The insulin regimen was adjusted to Step 3 Lispro sliding scale every 4 hours to improve glycemic control, as blood glucose levels remained above 250 mg/dL and are expected to rise with D5W administration. Chest X-rays were obtained every 6 hours per organ donation protocol. Urine output was around 30 cc/hr. The night nursing team informed the day ICU team that a right radial arterial line was placed on 12/04 but was found to be non-functional on 12/05 due to clot formation and was subsequently removed. Multiple attempts to place a new left arterial line were made but were unsuccessful. On the morning of 12/05, the patient was transitioned to comfort care after confirming non-viability for organ donation. Patient was extubated at 11:35 AM following a spontaneous breathing trial. Patient ultimately did not meet criteria for organ donation due to passing the time threshold post-extubation. Comfort care measures were continued. 12/04/2024: Patient experienced no acute events overnight. Tube feeds have reached the goal rate of 45 cc/hr. Total urine output was 1L, averaging approximately 80 cc/hr. Blood glucose levels ranged between 257 and 287 mg/dL. To improve glycemic control, the insulin degludec dosage was increased to 20 units twice daily (40 units total), up from 15 units twice daily. Additionally, the insulin sliding scale was adjusted from step 2 to step 3. Preparatory labs and imaging for organ donation have been initiated, including the placement of an arterial line and a bronchoscopy with a BAL sample today. Following the bronchoscopy, the patient became more agitated, and the fentanyl dose was increased from 175 mcg to 225 mcg. 12/03/2024: The organ procurement organization has contacted the patient?s family, who have provided informed consent for organ donation. Comfort care measures are scheduled to begin Friday afternoon. Overnight, patient received 5 units of insulin degludec at 2030 for improved blood glucose control. Glucose readings were 222 and 103, showing improvement from prior nights when levels were in the 300s. The insulin degludec regimen will continue as a split dose of 15 units BID (total 30 units daily). Patient had 3 loose bowel movements. Maximum temperature was 100.4?F, no tylenol was given, and the temperature decreased to 99.1?F by morning. Urine output was 25 cc/hr overnight. A 1L normal saline bolus was administered for suspected dehydration. Urine output will be reassessed post-bolus. Pain is managed with fentanyl at 175 mcg. Tube feeding rate is currently 25 cc/hr. Discussed with dietitian plan to advance rate by 5 cc every 8 hours to a goal of 45 cc/hr. No free water flushes at this time. 12/02/2024: Overnight, the patient was given Labetalol 10 mg once for a blood pressure of 190/112, resulting in some improvement to 171/115. Patient also had a temperature of 100.8?F, and cooling measures were initiated. By this morning, the temperature had decreased to 99.9?F. Urine output remained stable at approximately 45 cc/hour. The patient continues to receive Fentanyl 175 mcg for pain. 12/01/2024: Patient evaluated at bedside, shows no improvement in neurological status. Overnight, patient had bradycardia that transitioned to tachycardia, significant hypertension requiring labetalol and hydralazine IV pushes. Patient taken off pressure support due to some respiratory distress, unclear of what nature. Urine output approximately 100 cc/h throughout the night. MRI showed massive diffuse anoxic changes to brain. Repeat head CT showed concern for impending herniation, and worsening cerebral edema. This findings were discussed with the family who showed good understanding and awareness. Fentanyl was initiated for pain control. Consult placed to transfer to neurosurgical center given risk of impending herniation considering cerebral edema. ABG showed mild respiratory alkalosis, Vent settings adjusted appropriately. 11/30/2024: Overnight, the patient was transitioned to subcutaneous insulin, with IV insulin discontinued approximately one hour later. Tube feeds were initiated at a rate of 25 mL/hr. The patient's blood glucose levels have ranged from 157 to 341 mg/dL. The patient was initially started on 20 units of insulin degludec, along with a sliding scale insulin. In response to blood glucose fluctuations, the insulin degludec dose was increased to 25 units to improve control. The patient's urine output was 900 mL over the past 24 hours, averaging 100 mL/hr. A head CT performed yesterday revealed extensive infarction in the left middle cerebral artery distribution and both occipital lobes. These findings were discussed with the patient's family during their visit around 11:00 AM. In addition, Dr. Cherry was consulted to provide a more detailed explanation of the extent of the brain damage following the patient's cardiac arrest to family. 11/29/2024: Overnight, patient remained on vasopressors and bicarbonate drip overnight and was weaned off around 6AM this morning. Propofol and fentanyl have been held to allow for assessment of her underlying neurological status. She is currently afebrile with adequate urine output (~3.3L over the past 24 hours). Exam Vital Signs Temp Pulse Resp BP Pulse Ox O2 Del Method O2 Flow Rate 99.5 F 125 H 17 142/101 H 85 L Room Air 5 12/05/24 08:00 12/05/24 16:00 12/05/24 13:08 12/05/24 13:08 12/05/24 13:08 12/05/24 12:01 11/28/24 18:50 FiO2 100 12/05/24 10:07 Narrative Exam Physical Exam General: Intubated. Head: Normocephalic, atraumatic. Eyes: Pupils are equal and reactive to light, sluggish. Anicteric. Mouth/Throat: ET tube and OG tube in place. Gag reflex present. Heart: Regular rate and rhythm, no murmurs. No JVD. Right Internal jugular vein central line present. Lungs: Clear to auscultation with no wheezing or crackles. Non-labored respirations, symmetric chest rise, no use of accessory muscles. Mechanical breath sounds. Abdomen: Soft and non-distended. Johnston in place. Extremities: No edema in lower extremities. Swelling of bilateral hands and arms. Posterior tibial pulses are 2+ bilaterally. 2+ radial pulse bilaterally. No clubbing or cyanosis. No mottling. Soft restraints on bilateral wrists. Skin: No rash. Tattoos. Neurologic: FOUR score: 9 points - Eye response: eyelids open but not tracking (+3) - Motor response: extension response to pain (+1) - Brainstem reflexes: pupil and corneal reflexes present (+4) - Respiration: breaths above ventilator rate (+1) Objective Labs 12/05/24 10:09 12/05/24 10:09 Labs: Laboratory Results - last 24 hr 12/03/24 12/04/24 12/05/24 19:37 23:36 00:12 WBC RBC Hgb Hct MCV MCH MCHC RDW Std Deviation Plt Count Neut % (Auto) Lymph % (Auto) Snyder % (Auto) Eos % (Auto) Baso % (Auto) Neut # (Auto) Lymph # (Auto) Snyder # (Auto) Eos # (Auto) Baso # (Auto) Immature Gran # (Auto) Absolute Nucleated RBC Immature Gran % Nucleated RBC % PT INR APTT Puncture Site Arterial Line Arterial Line ABG pH 7.47 H 7.49 H ABG pCO2 38 36 ABG pO2 116 H D 377 H D ABG HCO3 28 H 27 H ABG O2 Saturation 99 H 101 H ABG Base Excess 4 H 3 FiO2 25 100 Sodium Potassium Chloride Carbon Dioxide Anion Gap BUN Creatinine Estim Creat Clear Calc eGFR BUN/Creatinine Ratio Glucose Calculated Osmolality Calcium Corrected Calcium Phosphorus Magnesium Total Bilirubin Direct Bilirubin AST ALT Alkaline Phosphatase Lactate Dehydrogenase Total Creatine Kinase Troponin I Total Protein Albumin Globulin Albumin/Globulin Ratio Ur Collection Type Urine Color Urine Clarity Urine pH Ur Specific Nelson Urine Protein Urine Glucose (UA) Urine Ketones Urine Blood Urine Nitrite Urine Bilirubin Urine Urobilinogen (Auto) Ur Leukocyte Esterase Urine RBC Urine WBC Ur Squamous Epith Cells Urine Bacteria TB Test (QFT) See Sep Rpt 12/05/24 12/05/24 12/05/24 00:15 05:55 06:00 WBC 12.7 H 12.9 H RBC 3.04 L 2.99 L Hgb 8.8 L 8.8 L Hct 27.7 L 27.2 L MCV 91 91 MCH 28.9 29.4 MCHC 31.8 32.4 RDW Std Deviation 48.1 H 47.4 H Plt Count 159 198 D Neut % (Auto) 61 63 Lymph % (Auto) 24 22 Snyder % (Auto) 10 9 Eos % (Auto) 4 4 Baso % (Auto) 0 0 Neut # (Auto) 7.7 8.2 H Lymph # (Auto) 3.1 2.8 Snyder # (Auto) 1.2 H 1.2 H Eos # (Auto) 0.5 0.6 H Baso # (Auto) 0.0 0.0 Immature Gran # (Auto) 0.12 H 0.16 H Absolute Nucleated RBC 0.00 0.00 Immature Gran % 1 H 1 H Nucleated RBC % 0 0 PT 10.3 10.7 INR 1.0 1.0 APTT 20.0 L 21.1 L Puncture Site ABG pH ABG pCO2 ABG pO2 ABG HCO3 ABG O2 Saturation ABG Base Excess FiO2 Sodium 155 H 159 H Potassium 3.4 3.3 L Chloride 120 H 121 H* Carbon Dioxide 26.3 26.6 Anion Gap 9 11 BUN 16 18 Creatinine 0.8 0.7 Estim Creat Clear Calc 105.3 120.3 eGFR > 60 > 60 BUN/Creatinine Ratio 20 26 H Glucose 230 H 120 H D Calculated Osmolality 315 H 317 H Calcium 8.3 8.1 L Corrected Calcium 9.0 8.9 Phosphorus 3.3 3.1 Magnesium 2.3 2.4 Total Bilirubin 0.2 L 0.2 L Direct Bilirubin < 0.1 < 0.1 AST 58 H 58 H ALT 108 H 104 H Alkaline Phosphatase 82 78 Lactate Dehydrogenase 531 H 554 H Total Creatine Kinase 61 58 Troponin I < 0.020 < 0.020 Total Protein 5.1 L 4.9 L Albumin 3.1 L 3.0 L Globulin 2.0 L 1.9 L Albumin/Globulin Ratio 1.6 1.6 Ur Collection Type Catheter Urine Color Yellow Urine Clarity Clear Urine pH 6.0 Ur Specific Nelson 1.025 Urine Protein 1+ A Urine Glucose (UA) 3+ A Urine Ketones Trace Urine Blood Negative Urine Nitrite Negative Urine Bilirubin Negative Urine Urobilinogen (Auto) Negative Ur Leukocyte Esterase Negative Urine RBC 4 H Urine WBC 10 H Ur Squamous Epith Cells < 1 Urine Bacteria None TB Test (QFT) 12/05/24 12/05/24 12/05/24 06:31 07:18 10:09 WBC 12.0 H RBC 3.25 L Hgb 9.5 L Hct 29.7 L MCV 91 MCH 29.2 MCHC 32.0 RDW Std Deviation 47.8 H Plt Count 209 Neut % (Auto) 67 Lymph % (Auto) 19 Snyder % (Auto) 9 Eos % (Auto) 4 Baso % (Auto) 0 Neut # (Auto) 8.0 H Lymph # (Auto) 2.3 Snyder # (Auto) 1.1 H Eos # (Auto) 0.4 Baso # (Auto) 0.0 Immature Gran # (Auto) 0.15 H Absolute Nucleated RBC 0.00 Immature Gran % 1 H Nucleated RBC % 0 PT 10.6 INR 1.0 APTT 21.4 L Puncture Site Left Radial Left Radial ABG pH 7.49 H 7.44 ABG pCO2 36 41 ABG pO2 110 H D 63 L D ABG HCO3 28 H 28 H ABG O2 Saturation 99 H 93 ABG Base Excess 4 H 3 FiO2 25 100 Sodium 157 H Potassium 3.4 Chloride 120 H Carbon Dioxide 26.7 Anion Gap 10 BUN 17 Creatinine 0.7 Estim Creat Clear Calc 120.8 eGFR > 60 BUN/Creatinine Ratio 24 H Glucose 153 H Calculated Osmolality 315 H Calcium 8.2 L Corrected Calcium 8.8 Phosphorus 3.6 Magnesium 2.3 Total Bilirubin 0.2 L Direct Bilirubin < 0.1 AST 63 H ALT 108 H Alkaline Phosphatase 83 Lactate Dehydrogenase 594 H Total Creatine Kinase 67 Troponin I < 0.020 Total Protein 5.3 L Albumin 3.3 L Globulin 2.0 L Albumin/Globulin Ratio 1.7 Ur Collection Type Urine Color Urine Clarity Urine pH Ur Specific Nelson Urine Protein Urine Glucose (UA) Urine Ketones Urine Blood Urine Nitrite Urine Bilirubin Urine Urobilinogen (Auto) Ur Leukocyte Esterase Urine RBC Urine WBC Ur Squamous Epith Cells Urine Bacteria TB Test (QFT) 12/05/24 10:49 WBC RBC Hgb Hct MCV MCH MCHC RDW Std Deviation Plt Count Neut % (Auto) Lymph % (Auto) Snyder % (Auto) Eos % (Auto) Baso % (Auto) Neut # (Auto) Lymph # (Auto) Snyder # (Auto) Eos # (Auto) Baso # (Auto) Immature Gran # (Auto) Absolute Nucleated RBC Immature Gran % Nucleated RBC % PT INR APTT Puncture Site Left Radial ABG pH 7.48 H ABG pCO2 36 ABG pO2 339 H D ABG HCO3 26 ABG O2 Saturation 100 H ABG Base Excess 3 FiO2 21 Sodium Potassium Chloride Carbon Dioxide Anion Gap BUN Creatinine Estim Creat Clear Calc eGFR BUN/Creatinine Ratio Glucose Calculated Osmolality Calcium Corrected Calcium Phosphorus Magnesium Total Bilirubin Direct Bilirubin AST ALT Alkaline Phosphatase Lactate Dehydrogenase Total Creatine Kinase Troponin I Total Protein Albumin Globulin Albumin/Globulin Ratio Ur Collection Type Urine Color Urine Clarity Urine pH Ur Specific Nelson Urine Protein Urine Glucose (UA) Urine Ketones Urine Blood Urine Nitrite Urine Bilirubin Urine Urobilinogen (Auto) Ur Leukocyte Esterase Urine RBC Urine WBC Ur Squamous Epith Cells Urine Bacteria TB Test (QFT) ABG Interpretation ABG results: 11/28/24 11/28/24 11/28/24 19:20 19:52 21:00 ABG pH 6.89 L* 7.02 L* D ABG pCO2 20 L 19 L* ABG pO2 300 H 261 H D ABG HCO3 4 L* 5 L* ABG O2 Saturation 99 H 100 H ABG Base Excess -28 L -25 L VBG pH 6.77 L VBG pCO2 35 L VBG pO2 149 H VBG Base Excess -29 L 11/29/24 11/29/24 11/29/24 01:28 04:19 12:14 ABG pH 7.36 D 7.46 H D 7.56 H D ABG pCO2 23 L 36 D 32 ABG pO2 132 H D 97 D 74 L D ABG HCO3 13 L 26 29 H ABG O2 Saturation 99 H 99 H 97 ABG Base Excess -10 L 2 6 H VBG pH VBG pCO2 VBG pO2 VBG Base Excess 11/29/24 11/29/24 11/30/24 12:21 16:06 04:46 ABG pH 7.48 H 7.45 ABG pCO2 40 35 ABG pO2 112 H D 131 H ABG HCO3 30 H 24 ABG O2 Saturation 99 H 98 ABG Base Excess 6 H 1 VBG pH 7.59 VBG pCO2 29 L VBG pO2 63 H D VBG Base Excess 6 H 12/01/24 12/01/24 12/02/24 05:05 12:22 04:15 ABG pH 7.52 H 7.51 H 7.47 H ABG pCO2 30 L 31 L 35 ABG pO2 94 D 101 110 H ABG HCO3 25 24 26 ABG O2 Saturation 97 98 99 H ABG Base Excess 2 2 2 VBG pH VBG pCO2 VBG pO2 VBG Base Excess 12/03/24 12/03/24 12/04/24 04:32 19:27 00:29 ABG pH 7.54 H 7.50 H 7.50 H ABG pCO2 32 33 33 ABG pO2 102 95 104 ABG HCO3 27 H 25 26 ABG O2 Saturation 98 99 H 99 H ABG Base Excess 5 H 2 2 VBG pH VBG pCO2 VBG pO2 VBG Base Excess 12/04/24 12/04/24 12/04/24 13:49 17:30 23:36 ABG pH 7.47 H 7.47 H 7.47 H ABG pCO2 37 38 38 ABG pO2 81 L D 416 H D 116 H D ABG HCO3 27 H 28 H 28 H ABG O2 Saturation 97 101 H 99 H ABG Base Excess 3 4 H 4 H VBG pH VBG pCO2 VBG pO2 VBG Base Excess 12/05/24 12/05/24 12/05/24 00:12 06:31 07:18 ABG pH 7.49 H 7.49 H 7.44 ABG pCO2 36 36 41 ABG pO2 377 H D 110 H D 63 L D ABG HCO3 27 H 28 H 28 H ABG O2 Saturation 101 H 99 H 93 ABG Base Excess 3 4 H 3 VBG pH VBG pCO2 VBG pO2 VBG Base Excess 12/05/24 10:49 ABG pH 7.48 H ABG pCO2 36 ABG pO2 339 H D ABG HCO3 26 ABG O2 Saturation 100 H ABG Base Excess 3 VBG pH VBG pCO2 VBG pO2 VBG Base Excess Quality Measures Quality Measures VTE prophylaxis (lovenox) Assessment & Plan Assessment Current Active Medications: Generic Name Dose Route Start Last Admin Trade Name Freq PRN Reason Stop Dose Admin Artificial Tears 1 drop 12/05/24 17:28 Artificial Tears 225 Drop/15 Ml Btl BOTH EYES 01/04/25 17:27 Q4HR PRN Dry eyes Diazepam 10 mg 12/05/24 14:29 12/05/24 19:21 Diazepam Inj 5 Mg/Ml Vial 2 Ml IVP 12/10/24 14:27 10 mg Q15MIN PRN Administration Distress(Comfort care) Fentanyl Citrate 100 mcg 12/05/24 13:10 12/05/24 18:09 Fentanyl Cit Inj 50 Mcg/Ml Amp 2ml IVP 12/10/24 13:09 100 mcg Q30MIN PRN Administration For comfort care Pain Hydromorphone HCl 4 mg 12/05/24 19:45 Hydromorphone Inj 2 Mg/Ml Vial IVP 12/10/24 19:44 Q15MIN PRN COMFORT CARE Fentanyl Citrate 2,500 mcg in 250 mls @ 35 mls/hr 12/05/24 11:50 12/05/24 18:00 Sublimaze Inj 2,500 Mcg/250 Ml Bag IV 12/10/24 10:14 350 mcg/hr .Q7H9M PRN 35 mls/hr COMFORT CARE Titration Protocol 350 MCG/HR Plan 29-year-old female with poorly controlled type 1 diabetes, hypothyroidism, and polysubstance use admitted to ICU for DKA complicated by cardiac arrest, now post-ROSC. Goals of care Dr. 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 The family was thoroughly informed about the patient's current neurological status and the extent of the anoxic brain injury. The patient?s prognosis and potential next steps were discussed in detail. The following options were presented to the family: Tracheostomy and PEG tube placement for long-term respiratory and nutritional support. Nursing Home Facility for continued care.Comfort care as an alternative, should the family decide that aggressive interventions would not align with the patient?s values or wishes. The family was provided ample time to ask questions and discuss the information presented. At this time, the family has not yet made a decision regarding the next steps in care.Neurology was consulted to provide a further detailed review and explanation of the patient?s neurological status, ensuring the family had a comprehensive understanding of the patient?s condition and prognosis. A request for evaluation from the Neuro ICU at [facility] was made via phone with transfer center. After reviewing the patient's clinical presentation and brain imaging, it was concluded that no further interventions could be offered, and there is no indication for transfer at this time. The organ procurement organization has contacted the patient?s family, who have provided informed consent for organ donation on 12/03. Per Dr. Tubbs event note on 12/05. Pie I[employer] Machine, organ donation network team, Resident Physicians( PGY-3 and PGY-1), RT, RNRhiannon) and ICU charge nurse were present at the bedside when patient was placed on spontaneous breathing trial and then extubated at 11:35 AM. - Patient received fentanyl push 80 mcg at 11:36 AM immediately postextubation due to gasping. Fentanyl drip was continued at 175 mcg/h. - Another additional dose of fentanyl 80 mcgx1 was given at 11:40 due to distress. - At 11:46 AM, third dose of fentanyl 80 mcg x1 was administered due to continued distress. - Fentanyl dose was increased to double with fentanyl drip at 350 mcg and fentanyl push at 175 mcg. - At 11:58 AM, glycopyrrolate 0.4 mg IV was given x 1 due to excessive secretions. Additionaly, Fentanyl 175 mcg was given x 1. - At 12:14 PM ,Dose of fentanyl 175 mcg x 1 was given to reduce apneic episodes. - At 12:43 PM, Last dose of fentanyl 175 mcg was given x 1 due to continous stridor. - Patient passed the 90 minutes window time for organ donation. In total, patient received 1115 mcg of fentanyl during those 90 minutes. - Patient did not qualify for organ donation and comfort care was continued. Comfort care set: - Currently patient is on Valium 10 mg every 30 minutes as needed for distress, fentanyl 100 mcg every 30 minutes bolus for pain and fentanyl drip at 350 mcg/h. Family is present at the bedside. - IV Valium was changed more frequent 10 mg q15 min due to air hunger/stridor with distress. Dilaudid 2 mg IV was given x1 as well. - Added Scopolamine patch for copious respiratory secretions. Assessment & Plan Neurology #Acute encephalopathy #Anoxic brain injury DDx: Post cardiac arrest (down time of 19 minutes) vs metabolic due to diabetic ketoacidosis vs substance intoxication vs severe hyperglycemia vs metabolic acidosis vs hypovolemia. Diagnostic Test: - CT head (11/29): Extensive areas of early infarction in left middle cerebral artery distribution and both occipital lobes. - MRI 11/30: Diffuse anoxic brain injury. - CT head 12/01: Increasing cerebral edema, concern for impending herniation. - CT head 12/03: No change from previous. No significant change in extensive anoxic ischemic change. Treatment Plan: - Comfort care #Hypernatremia (uptrending) DDx: lack of free water administration with tube feeds vs central diabetes insipidus from brain injury. Diagnostic Test: - Sodium level 149 --> 151 --> 152 --> 150 --> 153 --> 154 --> 158. Treatment Plan: - Comfort care Cardiovascular #Hypertension, acute (resolved) Suspected due to beginnings of herniation in setting of diffuse cerebral edema. Initial associate bradycardia that changed to tachycardia. Overnight BP was as high as 190/115. Labetalol and hydralazine provided temporary relief. Treatment plan: - Comfort care #Sinus tachycardia (resolved) Etiologies include reactive to pain, cerebral edema, infection. Treatment plan: - Comfort care #S/p cardiac arrest - ROSC in 20 minutes leading to anoxic brain injury #Shock likely mixed hypvolemic and distributive (resolved) Likely etiologies include severe acidosis, hyperkalemia, and vasodilation. Code blue start 1904, ROSC at 1925. Patient received 2 rounds of Epinephrine during code blue. Initial rhythm noted to be PEA. Diagnostic Test: - Initial potassium level 7.4. - Initial ABG: pH 6.89, pCO2 20, pO2 300, HCO3 4. - Bedside echo showed adequate LV contractility. Treatment Plan: - Comfort care Respiratory #Intubated and mechanically ventilated for airway protection Diagnostic Test: - CXR: No aspiration pneumonia or pulmonary edema. - ABGs: 11/28 19:52: pH 6.89/pCO2 20/pO2 300/HCO3 4 11/28 21:00: pH 7.02/pCO2 19/pO2 261/HCO3 5 11/28 01:28: pH 7.36/pCO2 23/pO2 132/HCO3 13 11/28 04:19: pH 7.46/pCO2 36/pO2 97/HCO3 26 11/29 12:21: pH 7.56/pCO2 32/pO2 74/HCO3 29 11/30 04:46: pH 7.45/pCO2 35/pO2 131/HCO3 24 - Patient's GCS is 5T - Gag reflex intact. - Patient unable to protect airway due to mental status. Treatment Plan: - Comfort care #Possible strep pyogenes respiration infection DDx: concern for aspiration pneumonia given patient is intubated. Diagnostic Test: - CXR 11/29: no pneumonia seen. - Sputum culture 11/28: strep pyogenes, sensitive to Rocephin. Treatment Plan: - Comfort care GI and F/E/N #Hepatitis (resolving) Likely secondary to ischemic hepatitis. DDx: decreased perfusion, severe dehydration, hypotension, metabolic acidosis from DKA and cardiac arrest. Diagnostic Test: - AST > 1000 --> 1883 --> 1344 --> 415 --> 153 --> 90. - ALT 483 --> 665 --> 842 --> 603 --> 386 --> 249. - Hepatitis panel non reactive. Treatment Plan: - Comfort care Renal #Hypokalemia (resolved) Likely due to the insulin driving potassium into the cells. Diagnostic Test: - Potassium level of 2.9 on 10 AM labs. Treatment Plan: - Comfort care #Mixed acid-base disorder (resolved) #Anion gap metabolic acidosis with non-compensatory respiratory acidosis (resolved) #Respiratory alkalosis (resolved) Diagnostic Test: - 11/28 19:52: Initial ABG: pH 6.89/pCO2 20/pO2 300/HCO3 4. Interpretation: metabolic acidosis with anion gap of 35. Using Winter's Formula (with HCO3 from CMP): Predicted pCO2 range = 21-25. The observed pCO2 of 20 is not compensatory, suggesting anion gap metabolic acidosis with non-compensatory respiratory acidosis. - Subsequent ABG (11/28 20:15): pH 7.02/pCO2 19/pO2 261/HCO3 5. Interpretation: falsely low pCO2 likely due to Kussmaul breathing. The patient's respiratory effort (deep, labored breathing) likely underestimates pCO2 and actual value is expected to be higher. - Trends in ABGs: over the following hours, the patient developed respiratory alkalosis, likely induced by insulin and bicarbonate, which can lower CO2. The ventilatory settings were adjusted to help counteract this alkalosis. RR was reduced from 22 to 15 bpm to allow CO2 retention and avoid excessive alkalosis. - Most recent AB/9 pH 7.47/pCO2 35/pO2 110/HCO3 26. Treatment Review: - pCO2 remained low despite ventilator adjustments, acetazolamide 500 mg x1 and LR given. - pH, serum bicarbonate and pCO2 as normalized. - Anion gap has closed twice. Treatment Plan: - Comfort care #Mixed-type lactic acidosis, in the setting of DKA (resolved) Likely multifactorial. DDx: type A from hypoperfusion/hypoxia related to hypovolemia due to DKA- associated osmotic diuresis and cardiac arrest, type B from hepatic dysfunction, stimulant/toxin use. Diagnostic test: - ABGs - metabolic acidosis with elevated anion gap and lactate. - Urine toxicology positive for methamphetamine and cocaine. - LFTs: AST > 1000, ALT 665, consistent with possible ischemic hepatitis. - Blood cultures: Strep pyogenes positive. Treatment Review: - IV fluid hydration per DKA protocol. (Completed) - IV insulin infusion, titrated to close anion gap. (Completed) Treatment Plan: - Comfort care #Acute kidney injury (resolved) Likely prerenal secondary to dehydration and cardiac arrest. Diagnostic Test: - Baseline Cr 1.1. - Admission Cr 3.6 --> 3.5 --> 2.7 --> 1.8 --> 1.6 --> 1.3. - Urine output: 45cc/hr. Treatment Plan: - Comfort care Heme #Leukocytosis DDx: reactive vs secondary to UTI. Likely secondary to hemoconcentration at this time. Diagnostic Test: - WBC 36.8 --> 25.3 --> 22.2 --> 15.7 --> 10.3 --> 15.4. - Highest temp overnight 100.8F, managed with cooling measures. Treatment Plan: - Comfort care #Anemia No signs of bleeds. Diagnostic Test: - Hgb: 13.3 --> 12.0 --> 10.9 --> 11.2 --> 11.0 --> 10.6 --> 8.6 --> 8.8. Treatment Plan: - Comfort care Endo #Insulin-dependent diabetes mellitus type 1 #Diabetic ketoacidosis (resolved) #Hyperglycemia (improving) Secondary to noncompliance with diabetes medication. Diagnostic Test: - Beta hydroxybutyrate > 6.4 , blood glucose 1258, anion gap 35. - Refer to above for ABG results. Treatment Review: - Insulin ggt per DKA protocol (completed). - Anion gap has closed twice. Treatment Plan: - Comfort care #History of hypothyroidism Diagnostic Test: - TSH 7.10, Free T4 1.03. - On Levothyroxine 88 mcg p.o. daily at home. Treatment Plan: - Comfort care ID #Micrococcus species bacteremia (ruled out) Final blood culture showed Micrococcus species. Unclear if true infection or contamination. Diagnostic Test: - Urine in the [place] has a lot of sediment and appears turbid. - Urine culture negative for UTI, ruled out. - Repeat UA positive for leukocyte esterase and WBCs. - GPC positive from both bottles. - Repeat blood cultures showed no growth. Treatment Plan: - No antibiotics needed. Health maintenance: Disposition: Comfort care DVT prophylaxis: discontinued for comfort care GI prophylaxis: none Diet: discontinued [place]: present Central line: right internal jugular vein Vent: no longer on MV, comfort care Code status: DNR. Patient discussed with my senior resident Dr. Tubbs and attending, Dr. Smallwood. Landry Nielsen DO, PGY 1
--- NOTE | 2024-12-05 19:53 | PD.DPN ---
Documentation for date of: 12/05/24 Pronouncement Note Date and Time of Date of : 12/05/24 Time of : 19:48 Summary Additional details: Patient was extubated at 11:45 am on 12/05/2024 She did not have a spontaneous cardiac arrest within 90 minutes post extubation. She unfortunately no longer qualifies for organ donation. Additional Data Confirmation of : no pulse, no respirations, no heart sounds and pupils fixed and dilated Family: at bedside Additional persons at bedside: other Attending/PCP notified?: Yes Attending physician: Valeria Pedersen, DO Was code activated?: No Organ bank notified?: Yes
--- NOTE | 2024-12-05 20:19 | DES_ITS ---
<Statement entered by Claude Smallwood MD - 12/16/24 08:03> TOTAL TIME: 45MINUTES ON DIRECT MEDICAL CARE, MANAGEMENT - COORDINATION AND COUNSELING > 50% OF TOTAL TIME I saw and evaluated the patient. I reviewed the resident?s note and agree with findings and plan as documented in the resident?s note. Documentation for date of: 12/05/24 Summary Date and Time Date of admission: 11/28/24 20:01 Date of : 12/05/24 Time of : 19:48 Summary Details: Chief Complaint on Admission: Patient reported feeling like she was in DKA. History of Present Illness: 29-year-old female with a history of poorly controlled type 1 diabetes mellitus, multiple prior admissions for diabetic ketoacidosis (DKA), polysubstance use, and hypothyroidism, presented to the emergency department on 11/28/2024. She reported symptoms concerning for DKA. The patient reported missing several doses of Lantus due to running out but continued using NovoLog. She also endorsed recent cocaine use. Emergency Department Course: While in the emergency department, the patient became unresponsive and was found to be in cardiac arrest. A code blue was initiated, and advanced cardiac life support (ACLS) protocols were followed. The patient received chest compressions, epinephrine, and sodium bicarbonate. She was intubated, and central venous access was obtained. Return of spontaneous circulation (ROSC) was achieved after approximately 20 minutes. Post-ROSC labs confirmed severe diabetic ketoacidosis and evidence of multi-organ dysfunction. Labs were notable for leukocytosis with neutrophil predominance, marked hyperglycemia, anion gap metabolic acidosis, and positive urine ketones. Urine toxicology was positive for methamphetamine and cocaine. ICU Hospital Course: Upon ICU admission, the patient was managed with vasopressors, bicarbonate infusion, insulin infusion per DKA protocol, and sedation with propofol and fentanyl. Vasopressors and bicarbonate were successfully weaned off within 24 hours. Once DKA resolved and the patient met criteria for subcutaneous insulin, tube feeds were initiated and titrated to goal. Glycemic control improved with adjustments to insulin degludec and sliding scale coverage. Urine output remained adequate. Sedation was held to assess neurological function. After 24 hours off sedation without clinical improvement, CT head imaging was obtained and revealed ext ensive infarction in the left middle cerebral artery territory and bilateral occipital lobes. Neurology was consulted and recommended further evaluation with MRI and EEG. MRI showed diffuse anoxic brain injury. EEG was abnormal with moderate diffuse slowing suggestive of a diffuse encephalopathy resulting from hypoxic brain injury. A repeat CT head demonstrated worsening cerebral edema with signs concerning for impending herniation. Later in the hospital course, the patient developed bradycardia progressing to tachycardia with significant hypertension requiring IV labetalol and hydralazine. Fentanyl was used for pain management. Hypernatremia developed but hypertonic solutions were avoided due to the risk of worsening cerebral edema. A neurosurgical consultation at a tertiary center was pursued but no further interventions were recommended based on the poor neurological prognosis. Code Status Change: Following comprehensive discussions with the ICU team regarding the patient's clinical status, prognosis, and available treatment options. The family demonstrated understanding of the information provided. The patient?s mother elected to change the patient?s code status. On 11/29/2024, the code status was formally changed to Do Not Resuscitate. Organ Donation Process: On 12/03/2024, the Organ Procurement Organization ([facility]O) contacted the patient's family, who provided informed consent for organ donation following discussion of the process and eligibility criteria. The ICU team collaborated with the [facility] to initiate the organ donation evaluation, consistent with institutional policy and national guidelines. The following orders and assessments were initiated as part of the evaluation: - Laboratory testing: CBC, CMP, PT/INR, ABG, urine culture, and other standard donation-related labs. - Imaging: Chest X-ray, transthoracic echocardiogram, EKG, and CT chest/abdomen/pelvis with triphasic liver protocol. - Medications: Zosyn and Diflucan were initiated per [facility] protocol. - Unavailable labs at the time of evaluation included: GGT, CK-MB%, and TEG. Procedures performed included: - Placement of a right radial arterial line on 12/04, which was later found to be non-functional on 12/05 due to clotting and subsequently removed. Multiple attempts to re-establish arterial access were unsuccessful. - Bronchoscopy with bronchoalveolar lavage was performed on 12/04; specimens were sent for Gram stain and culture. - CT chest/abdomen/pelvis with triphasic liver protocol was completed after bronchoscopy as part of the organ donation workup. Comfort Care and Terminal Events: Present at the bedside during terminal extubation were the ICU attending physician, members of the organ donation team, resident physicians (PGY-3 and PGY-1), respiratory therapist, bedside nurse (FLOR Marsh), and the ICU charge nurse. The patient was extubated at 11:35 AM on 12/05/2024 following a spontaneous emerson thing trial. Post-extubation, she exhibited signs of respiratory distress, including gasping and stridor. The ICU team administered symptom-directed palliative interventions, including opioid infusions and anticholinergic medications, titrated in response to ongoing assessments of comfort and distress. The patient did not experience a spontaneous cardiac arrest within the required 90-minute window post-extubation and therefore no longer met criteria for organ donation. Comfort-focused care was continued. Pronouncement: The patient was pronounced at 19:48 on 12/05/[address] Soot. occurred following withdrawal of life-sustaining treatment and implementation of comfort care. Family members were present at the bedside. Diagnoses #Acute encephalopathy #Anoxic brain injury #Hypernatremia (uptrending) #Hypertension, acute (resolved) #Sinus tachycardia (resolved) #S/p cardiac arrest - ROSC in 20 minutes leading to anoxic brain injury #Shock likely mixed hypvolemic and distributive (resolved) #Intubated and mechanically ventilated for airway protection #Possible strep pyogenes respiration infection #Hepatitis (resolving) #Hypokalemia (resolved) #Mixed acid-base disorder (resolved) #Anion gap metabolic acidosis with non-compensatory respiratory acidosis (resolved) #Respiratory alkalosis (resolved) #Mixed-type lactic acidosis, in the setting of DKA (resolved) #Acute kidney injury (resolved) #Leukocytosis #Anemia #Insulin-dependent diabetes mellitus type 1 #Diabetic ketoacidosis (resolved) #Hyperglycemia (improving) #History of hypothyroidism #Micrococcus species bacteremia (ruled out) Patient case was discussed with the senior resident, Dr. Tubbs, and attending physician, Dr. Smallwood. Landry Nielsen, Internal Medicine PGY-1 Additional Data Attending physician: Valeria Pedersen DO Visit Providers Provider Primary care physician: Physician No Primary/Family Consults: 11/28/24 20:06 Referral Registered Dietitian Routine Comment: 11/29/24 06:45 [employer] Referral - Safety Routine Comment: Positive screening for safety needs. 11/30/24 11:20 Consult to Neurology / Tele-Neurology Routine Comment: Prognosis given CT findings Consulting Provider: Conrado Cherry 12/01/24 11:11 Referral - [employer] Routine Service Needed for Transfer: Neurosurgery Addl Comments:: Eval for impending herniation in setting of acute brain injury Referral Deniz Routine Comment: Payroll Officer requested 12/04/24 17:00 Referral Wound Care Routine Comment: Discharge Plan Plan Patient Disposition: Prescriptions/Referrals Referrals: No Primary/Family,Physician [Primary Care Provider] Patient/Caregiver Discharge Instructions Print Language: [place] Discharge Order Discharge Orders: Discharge (Routine); Ordered 12/05/24 Ordered By: Zaid Soto
[2024-12-06 16:16] LABS: Collection Type, Urine Catheter
[2024-12-06 16:43] LABS: Amorphous Crystals,Urine Present (Absent); Bilirubin,Urine Negative (Negative); Blood,Urine Negative (Negative); Color,Urine Yellow (Lt Yel-Yel); Glucose, Urine 1+ (Negative); Ketones,Urine Trace (Negative); Leukocyte Esterase,Urine Negative (Negative); Nitrite,Urine Negative (Negative); PH,Urine 6.0 (5.0-7.0); Protein,Urine 1+ (Neg - Trace); RBC,Urine 1 /hpf (0-3); Specific Gravity,Urine 1.046 (1.001-1.035); Squamous Epithelial Cell,Urine 1 /hpf (0-5); Urobilinogen,Urine Negative mg/dL (0.0-1.0); WBC,Urine 3 /hpf (0-5)
[2024-12-06 16:45] LABS: Clarity,Urine Turbid (Clear/Hazy)
== END 2024-12-05 19:48 | disposition expired | DRG 420 ==
LOC: SERX 19:26 → SERHOLD 20:45 → S2SX 21:16
PROVIDERS: Emergency Medicine; Internal Medicine; Student in an Organized Health Care Education/Training Program; Admitting Provider Student in an Organized Health Care Education/Training Program; Emergency Provider Emergency Medicine; Visit Provider Internal Medicine
DX: E10.10 Type 1 diabetes mellitus with ketoacidosis without coma (principal); G93.41 Metabolic encephalopathy; Z91.199 Patient's noncompliance with other medical treatment and regimen due to unspecified reason; E03.9 Hypothyroidism, unspecified; N17.9 Acute kidney failure, unspecified; E86.0 Dehydration; N39.0 Urinary tract infection, site not specified; E87.5 Hyperkalemia; J96.01 Acute respiratory failure with hypoxia; J96.02 Acute respiratory failure with hypercapnia; K72.00 Acute and subacute hepatic failure without coma; E87.4 Mixed disorder of acid-base balance; G93.1 Anoxic brain damage, not elsewhere classified; E87.0 Hyperosmolality and hypernatremia; F17.200 Nicotine dependence, unspecified, uncomplicated; I10 Essential (primary) hypertension; R00.0 Tachycardia, unspecified; R57.9 Shock, unspecified; D69.6 Thrombocytopenia, unspecified; E87.6 Hypokalemia; G93.2 Benign intracranial hypertension; J69.0 Pneumonitis due to inhalation of food and vomit; D64.9 Anemia, unspecified; F14.90 Cocaine use, unspecified, uncomplicated; G93.6 Cerebral edema; I46.8 Cardiac arrest due to other underlying condition; Z79.4 Long term (current) use of insulin; Z51.5 Encounter for palliative care; Z66 Do not resuscitate; Z91.148 Patient's other noncompliance with medication regimen for other reason
CPT/HCPCS: 36415; 36600; 70450; 70551; 71045; 71260; 74178; 80048; 80053; 80061; 80069; 80074; 80202; 80329; 81001; 82010; 82150; 82248; 82550; 82803; 83036; 83605; 83615; 83690; 83735; 84100; 84439; 84443; 84450; 84484; 84703; 85007; 85025; 85027; 85379; 85384; 85610; 85730; 86480; 86703; 86850; 86900; 86901; 87040; 87070; 87077; 87086; 87186; 87205; 87635; 93005; 93306; 94002; 94003; 95816; 96361; 96365; 96366; 99285; A4649; J0168; J0171; J0360; J0612; J0696; J1120; J1171; J1200; J1450; J1644; J1650; J1815; J2250; J2251; J2543; J2704; J3010; J3360; J3373; J3374; J3475; J3480; J3490; J7030; J7050; J7060; J7120; J7121; J7999; Q9967; A9270; G0480; J1596; J1920